=== PATIENT | male | born 1985 | race Caucasian/White ===

== ENCOUNTER 2023-09-20 06:55 | Emergency (ER) | payer OTHER, SELFPAY ==
[2023-09-20 06:57] VITALS: BP 155/111
--- NOTE | 2023-09-20 07:16 | ED.GENMED ---
History of Present Illness
General
Chief Complaint: Breathing Problem
Source: patient
Exam Limitations: none
Time Seen by Provider: 09/20/23 06:58
History of Present Illness
History of Present Illness:
38-year-old male presents via EMS with complaints of shortness of breath and a wound to the right upper extremity. He admits to having several stiffed drinks recently. He recently came back from [place]. He received a DuoNeb en route and states
that he feels much better. He tells me his last alcoholic beverage was a couple hours ago. He has a history of bipolar and is on lithium. He has a history of asthma as well. He complains of pain to the right upper arm of which he thinks is a
bite. Does not recall any trauma.
Past History
Past History
ED Past Medical History: HTN, Psychiatric and Other (Substance abuse)
ED Past Surgical History: None
Social History
Tobacco: Non-smoker
Alcohol: Occasional
Drug: Marijuana, Narcotics, IVDA and Other
Personal: Single
Living: with family
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
Family History
Family History: Other (Noncontributory)
Phy Exam
Physical Exam
Physical Exam:
General: Well-appearing male no acute respiratory distress
HEENT: Normocephalic pupils equal round react light extract motion intact
Heart: Slightly tachycardic but regular
Lungs: Clear no wheeze
Skin: Abrasion with underlying ecchymosis to the posterior aspect of the right upper arm overlying the tricep area. No obvious deformity
Musculoskeletal exam: Good range of motion right upper extremity
Neurologic: Appears intoxicated but answers questions. No facial asymmetry. No drift
Course
Vital Signs
Initial and Last Documented VS:
Initial Vital Signs
Temp Pulse Resp BP Pulse Ox
98.1 F 94 20 155/111 95
09/20/23 06:57 09/20/23 06:57 09/20/23 06:57 09/20/23 06:57 09/20/23 06:57
Last Documented Vital Signs
Temp Pulse Resp BP Pulse Ox
98.1 F 94 20 155/111 95
09/20/23 06:57 09/20/23 06:57 09/20/23 06:57 09/20/23 06:57 09/20/23 06:57
MDM/Problems Addressed
Differential Diagnosis Includes:
Patient presented with increased work of breathing with wheezing. He has a history of asthma. Question possible acute on chronic asthma flare. He was given a DuoNeb en route which she feels better. His lungs are clear at this time and is in no
respiratory distress. Patient Opticyl concerned about an area of discomfort in the right upper arm. To this provider looks like a bruise/hematoma. There is an abrasion overlying it. He is moving his arm well without deformity. Patient is
adamant that this is an insect bite. I do not suspect this is the case.
*Critical Care Note
Total Time (30-74mins, 75-104mins- exclusive of procedures): Not Applicable
Update Note
Update Note:
Patient remained without any respiratory distress. He has remained alert and conversive. He is ambulatory. He requests to go home. I see no reason why he cannot. He is currently working on a ride home and we will discharge him when we see a
ride.
ED Attending Note
-
Portions of this chart may have been created with voice recognition software.� Occasional wrong word or��sound alike� substitutions may have occurred due to the inherent limitations of voice recognition software.
Discharge Plan
Departure
Patient Disposition: Home (Routine Discharge)
Date of Disposition: 09/20/23
Time of Disposition: 07:50
Patient with high blood pressure during this ER visit?: No
Discharge Problem:
Asthma
Instructions: Asthma, Adult (DC)
Prescriptions:
No Action
lisinopril 10 MG tablet
10 mg PO Daily
ibuprofen 400 mg Tablet
400 mg PO PRN PRN (Reason: pain)
gabapentin 300 mg Capsule
300 mg PO HS
albuterol sulfate [Ventolin HFA] 90 mcg/actuation Hfa Aerosol Inhaler
2 puff INHALATION BID
acetaminophen [Tylenol] 325 mg Capsule
650 mg PO Q6H PRN (Reason: pain)
oxycodone 5 mg tablet
5 mg PO Q4HPRN PRN (Reason: breakthrough/severe pain) Qty: 10 0RF
Activity Restrictions/Additional Instructions:
You may apply ice to the upper arm. Use Tylenol or ibuprofen if needed for pain. Return if worse
Interventions
Interventions:
*Risk Screen - Suicide Last Done: 09/20/23 06:57
*General Assessment Last Done: 09/20/23 06:57
*Neglect/Abuse Screening Last Done: 09/20/23 06:57
ED- Cardiac Assessment Last Done: 09/20/23 07:26
ED- Pulmonary Assessment Last Done: 09/20/23 07:26
ED-Skin Assessment Last Done: 09/20/23 07:26
Discharge Date and Time
Print Language: KHMER
[2023-09-20 07:40] VITALS: BP 148/95
== END 2023-09-20 08:00 | disposition home or self-care (01) ==
LOC: EMR 06:55
PROVIDERS: EMERGENCY PHYSICIAN Emergency Medicine
DX: J45.909 Unspecified asthma, uncomplicated (principal); R06.02 Shortness of breath; M79.621 Pain in right upper arm; I10 Essential (primary) hypertension
CPT/HCPCS: 99283

== ENCOUNTER → 2023-11-15 07:13 | Outpatient (REF) | payer OTHER, SELFPAY | LOC: RCS 07:13 | PROVIDERS: ATTENDING PHYSICIAN Family Medicine | DX: R00.2 Palpitations (principal) | CPT/HCPCS: 93005 ==

== ENCOUNTER 2023-11-27 07:31 | Day surgery (SDC) | payer OTHER, SELFPAY ==
[2023-11-27 08:03] VITALS: BMI 37.6
[2023-11-27] MEDS: ELIQUIS 5 MG PO (09:41)
--- NOTE | 2023-11-27 10:04 | ITS.CL.CARDI ---
Farm Mortgage Agent - Cardioversion
Cardioversion
Procedure Report:
Procedure: DC-guided electrical cardioversion
Pre-operative diagnosis: Persistent atrial fibrillation
Post-operative diagnosis: Persistent atrial fibrillation status post DC cardioversion to sinus rhythm
Anesthesia: MAC
Attending Physician: Nitin Silva MD
Procedure Description: The patient was brought to the electrophysiology laboratory in the fasting state. Informed consent was obtained from the patient prior to the start of the procedure. Adherence to anticoagulation was confirmed. Electrodes were
placed on the patient and connected to an external defibrillator. Monitoring of blood pressure, ECG tracings, and pulse oximetry was initiated. The pads were applied to the patient in the anterior and posterior positions. The patient was sedated by
the anesthesiologist. A DC (reported separately) was performed prior to the cardioversion. No left atrial or left atrial appendage thrombus was seen. After the DC probe was removed, a 200 joule biphasic synchronized shock was delivered to the
patient under MAC anesthesia. Sinus rhythm was successfully restored. The patient recovered uneventfully from MAC anesthesia. There were no immediate post-procedure complications. The patient left the lab in good condition. The attending physician
was present throughout the entire procedure.
Impression: Successful DC-guided direct current cardioversion with amish of sinus rhythm after one 200 joule biphasic synchronized shock.
== END 2023-11-27 10:01 | disposition home or self-care (01) ==
LOC: CATH 07:31
PROVIDERS: ATTENDING PHYSICIAN Internal Medicine Cardiovascular Disease; FAMILY PHYSICIAN Family Medicine; OTHER PHYSICIAN Internal Medicine Interventional Cardiology
DX: I48.19 Other persistent atrial fibrillation (principal); I08.1 Rheumatic disorders of both mitral and tricuspid valves; I10 Essential (primary) hypertension; Z79.01 Long term (current) use of anticoagulants
CPT/HCPCS: 93312; 93320; 93325; 92960; 93005

== ENCOUNTER → 2023-12-16 15:59 | Outpatient (REF) | payer OTHER, SELFPAY | LOC: RCS 15:59 | PROVIDERS: ATTENDING PHYSICIAN Internal Medicine Interventional Cardiology; FAMILY PHYSICIAN Family Medicine | DX: I48.11 Longstanding persistent atrial fibrillation (principal); I10 Essential (primary) hypertension | CPT/HCPCS: 93306 ==

== ENCOUNTER 2024-01-30 07:15 | Day surgery (SDC) | payer OTHER, SELFPAY ==
--- NOTE | 2024-01-30 08:53 | ITS.CL.CARDI ---
Government Affairs Researcher - Cardioversion
Cardioversion
Procedure Report:
Date of Procedure: 01/30/24
Procedure: Cardioversion
Indication: Symptomatic atrial fibrillation
Performing Physician: Jasen East MD
Technique: The patient was brought to the holding area. Signed informed consent was obtained. A time out was called and performed. The patient was anesthetized by the anesthesia service. Anticoagulation status was reviewed and appropriate. R2 pads
were placed anteriorly and posteriorly. A 200 J, 360J and 360J synchronized biphasic shock failed to restore sinus rhythm without significant bradycardia. There were no complications.
Conclusion: Failed cardioversion with persistent atrial fibrillation.
Recommendation: Routine post cardioversion care. Continue senior care anticoagulation. Will arrange appointment with EP to discuss ablation.
== END 2024-01-30 09:40 | disposition home or self-care (01) ==
LOC: CATH 07:15
PROVIDERS: ATTENDING PHYSICIAN Internal Medicine Cardiovascular Disease; FAMILY PHYSICIAN Family Medicine; OTHER PHYSICIAN Internal Medicine Interventional Cardiology
DX: I48.19 Other persistent atrial fibrillation (principal); I08.1 Rheumatic disorders of both mitral and tricuspid valves; I10 Essential (primary) hypertension; J45.909 Unspecified asthma, uncomplicated; Z79.01 Long term (current) use of anticoagulants
CPT/HCPCS: 92960; 93005

== ENCOUNTER 2024-03-04 02:03 | Emergency (ER) | payer OTHER, SELFPAY ==
[2024-03-04 02:05] VITALS: BP 149/108
[2024-03-04 03:06] VITALS: BP 132/97
[2024-03-04 03:07] VITALS: BMI 39.3
[2024-03-04] MEDS: DUONEB 3 ML INH (03:19)
[2024-03-04] MEDS: DELTASONE 50 MG PO (03:20)
--- NOTE | 2024-03-04 03:20 | ED.GENMED ---
History of Present Illness
General
Chief Complaint: Breathing Problem
Source: patient
Exam Limitations: none
Time Seen by Provider: 03/04/24 03:15
Nursing documentation reviewed up to this point in time: agreed with
History of Present Illness
History of Present Illness:
38-year-old male presents emergency department with due to shortness of breath. Past several days he has not had his medications, and he is unable to sleep tonight due to shortness of breath.
Past History
Past History
ED Past Medical History: HTN, Psychiatric and Other (Substance abuse)
ED Past Surgical History: None
Social History
Tobacco: Non-smoker
Alcohol: Occasional
Drug: Marijuana, Narcotics, IVDA and Other
Personal: Single
Living: with family
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
Family History
Family History: Other (Noncontributory)
Review of Systems
Review of Systems
Allergies reviewed?: Yes
All Other Systems: Not applicable
Constitutional: Reports no symptoms
Respiratory: Reports cough and trouble breathing
Cardiac: Reports no symptoms
ABD/GI: Reports no symptoms
: Reports no symptoms
Musculoskeletal: Reports no symptoms
Skin: Reports no symptoms
Neurological: Reports no symptoms
Endocrine: Reports no symptoms
Hematologic/Lymphatic: Reports no symptoms
Psychiatric: Reports no symptoms
Phy Exam
Physical Exam
Physical Exam:
Physical Exam
General: Appears short of breath
Neck: supple. no meningeal signs. normal posterior pharynx
Heart: s1/s2 regular rate and rhythm, no murmur. equal radial
pulses.
HEENT: Pupils equal round reactive to light, EOMI
Lungs: Moderate respiratory distress. Decreased breath sounds and wheezing bilaterally
Abdomen: normal bowel sounds. not tender. no CVAT
Neuro: alert and oriented. no focal neurological deficits cranial nerves II through XII intact
Skin: no rash
Psychiatric: well kept. interactive and cooperative
Extremities: no edema. no calf tenderness. negative homans. good distal pulses
Course
Orders/Labs/Results
Orders:
Orders
03/04/24 02:04
Electrocardiogram (*1) Urgent
Reason for Study: Shortness of Breath
EKG- Treatment ONCE
03/04/24 03:15
Ipratropium/Albuterol Sulfate [Duoneb] 3 ml INH R NOW STA
Prednisone [Deltasone] 50 mg PO NOW STA
03/04/24 04:43
Albuterol [ProAIR HFA INHALER] 2 puff INH R NOW STA
Vital Signs
Initial and Last Documented VS:
Initial Vital Signs
Temp Pulse Resp BP Pulse Ox
97.3 F 112 16 149/108 94
03/04/24 02:05 03/04/24 02:05 03/04/24 02:05 03/04/24 02:05 03/04/24 02:05
Last Documented Vital Signs
Temp Pulse Resp BP Pulse Ox
97.3 F 109 20 132/97 97
03/04/24 02:05 03/04/24 04:00 03/04/24 04:00 03/04/24 03:06 03/04/24 04:00
MDM/Problems Addressed
Differential Diagnosis Includes:
Pneumonia, asthma exacerbation
MDM/Problems Addressed:
38-year-old male with asthma exacerbation, no signs of pneumonia. Patient improved after DuoNeb treatment.
Chronic conditions affecting care: Arrhythmia and Asthma
Acute Exacerbation and/or Progression of Chronic Illness: Arrhythmia and Asthma
*Pulse Oximetry
Patient hypoxic: no
*EKG
Interpreted by ED Provider?: Yes
EKG Intrepretation Date: 03/04/24
EKG Intrepretation Time: 02:14
Interpretation: abnormal
Heart Rate: 110
Rate: tachycardiac
Rhythm: a-fib
[place]: normal axis
Interval: normal interval
QRS Pattern: normal QRS
Ischemia: no ischemia
*Hand Coper Interpretation
Rate: tachycardiac
Interpretation: abnormal
Heart Rate: 105
Rhythm: a-fib
*Critical Care Note
Total Time (30-74mins, 75-104mins- exclusive of procedures): 30
comment:
Critical care statement: A total of 30 minutes of critical care time was provided for this patient. This includes management of unstable vital signs, evaluation of the patient at bedside, reviewing the patient's pertinent medical records, discussion
with consultants, review of old EKGs and review of pertinent medical records. This time with separate from time utilized to perform the aforementioned documented procedures
Data Reviewed
Further Testing Considered But Not Given:
Chest x-ray and labs not indicated
Patient Management
Social determinants of health affecting care: Living situation and Strong social support
Escalation/DeEscalation of care consider admission/obs:
Admit not indicated
ED Attending Note
-
Portions of this chart may have been created with voice recognition software.� Occasional wrong word or��sound alike� substitutions may have occurred due to the inherent limitations of voice recognition software.
Discharge Plan
Departure
Patient Disposition: Home (Routine Discharge)
Date of Disposition: 03/04/24
Time of Disposition: 04:45
Patient with high blood pressure during this ER visit?: Yes
Condition: Good
Discharge Problem:
Asthma exacerbation
Instructions: Asthma, Adult (DC), BLOOD PRESSURE
Prescriptions:
New
prednisone 50 mg tablet
50 mg PO DAILY Qty: 5 0RF
albuterol sulfate 2.5 mg /3 mL (0.083 %) solution for nebulization
2.5 mg inhalation Q4H PRN (Reason: shortness of breath or wheezing) Qty: 180 0RF
No Action
albuterol sulfate [Ventolin HFA] 90 mcg/actuation Hfa Aerosol Inhaler
2 puff INHALATION Q8HPRN PRN (Reason: sob)
amlodipine-benazepril 2.5-10 mg Capsule
1 cap PO DAILY
amlodipine-benazepril 5-20 mg Capsule
1 cap PO HS
Opcon-A 0.027-0.315 % Drops
1 drp OPHTHALMIC (EYE) BIDPRN PRN (Reason: eyes)
metoprolol succinate 50 mg Tablet Extended Release 24 Hr
50 mg PO DAILY
diazepam 5 mg Tablet
5 mg PO BID PRN (Reason: anxiety)
omeprazole magnesium [Prilosec OTC] 20 mg Tablet,Delayed Release (Dr/Ec)
20 mg PO PRN PRN (Reason: gerd)
Eliquis 5 mg Tablet
5 mg PO BID
Referrals:
Laureano Heller DO [Family Provider] -
Interventions
Interventions:
*Risk Screen - Suicide Last Done: 03/04/24 02:05
*General Assessment Last Done: 03/04/24 02:05
*Neglect/Abuse Screening Last Done: 03/04/24 02:05
ED- Fall Risk Assessment Last Done: 03/04/24 03:08
*ED COVID-19 Vaccine History Last Done: 03/04/24 02:05
ED- Cardiac Assessment Last Done: 03/04/24 03:08
ED- Pulmonary Assessment Last Done: 03/04/24 03:08
Discharge Date and Time
Print Language: PORTUGUESE
[2024-03-04 04:18] VITALS: BP 144/102
[2024-03-04] MEDS: ProAIR HFA INHALER 2 PUFF INH (04:56)
== END 2024-03-04 05:12 | disposition home or self-care (01) ==
LOC: EMR 02:03
PROVIDERS: EMERGENCY PHYSICIAN Emergency Medicine; FAMILY PHYSICIAN Family Medicine
DX: J45.901 Unspecified asthma with (acute) exacerbation (principal); R00.0 Tachycardia, unspecified; I10 Essential (primary) hypertension; F90.9 Attention-deficit hyperactivity disorder, unspecified type; F31.9 Bipolar disorder, unspecified; F32.A Depression, unspecified; F19.11 Other psychoactive substance abuse, in remission; Z91.048 Other nonmedicinal substance allergy status
CPT/HCPCS: 99291; 94640 ×2; 93005

== ENCOUNTER 2024-03-23 19:09 | Inpatient (IN) | payer OTHER, SELFPAY ==
[2024-03-23] VITALS (17 sets, daily range): BP systolic 103–148; BP diastolic 62–113
[2024-03-23 13:56] LABS: % Basophils 0.4 % (0-2); % Eosinophils 0.2 % (0-6); % Immature Granulocytes 1.1 % (0-0.5); % Lymphocytes 10.8 % (20.5-51.1); % Monocytes 13.2 % (1.7-9.3); % Neutrophils 74.3 % (42.2-75.2); Absolute Immature Granulocytes 0.1 10^3/uL (0-0.05); Absolute Monocytes 1.2 10^3/uL (0.1-0.6); Absolute Neutrophils 6.8 10^3/uL (1.4-6.5); Hematocrit 25.8 % (39.0-52.0); Hemoglobin 8.9 g/dL (13.0-18.0); Mean Corp Hgb Conc. 34.5 g/dL (33.0-37.0); Mean Corpuscular Hgb 30.5 pg (27.0-31.0); Mean Corpuscular Volume 88.4 fL (80.0-94.0); Mean Platelet Volume 10.7 fL (7.4-10.4); Nucleated Red Blood Cells % 0 % (-); Platelet Count 115 10^3/uL (130-400); Red Blood Cell Count 2.92 10^6/uL (4.70-6.10); Red Cell Dist. Width 14.3 % (11.5-14.5); White Blood Cell Count 9.2 10^3/uL (4.8-10.8)
[2024-03-23 14:09] LABS: INR 1.42; PT 17.6 Sec (11.4-14.6)
[2024-03-23 14:10] LABS: APTT 30.1 Sec (23.4-35.0)
[2024-03-23 14:11] LABS: ALT (SGPT) 71 U/L (0-50); AST (SGOT) 112 U/L (17-59); Albumin 3.8 g/dl (3.5-5.0); Alkaline Phosphatase 53 U/L (38-126); Blood Urea Nitrogen 33 mg/dl (9-20); Carbon Dioxide 23 mmol/L (22-30); Chloride 87 mmol/L (98-107); Glucose 111 mg/dl (70-99); Potassium 4.1 mmol/L (3.5-5.1); Sodium 123 mmol/L (135-145); Total Bilirubin 1.5 mg/dl (0.2-1.3); Total Protein 6.1 g/dl (6.3-8.2); eGFR > 60.00
[2024-03-23 14:22] LABS: Troponin I 0.022 ng/ml
--- NOTE | 2024-03-23 15:57 | ED.GENMED ---
History of Present Illness
General
Chief Complaint: Vomiting Blood
Time Seen by Provider: 03/23/24 15:21
History of Present Illness
History of Present Illness:
38-year-old male with history of A-fib on Eliquis presents to the emergency department for evaluation of intermittent nosebleeds for the past 3 days. He states he has been vomiting blood and has had tarry stools for the past 2 days as well. He
self discontinued his Eliquis 2 days ago however bleeding has not improved. He reports general fatigue as well as increased shortness of breath off his baseline. Admits to a 30 pound weight gain in the past 3 months. Has been compliant with his
other cardiac meds.
Past History
Past History
ED Past Medical History: HTN, Psychiatric and Other (Substance abuse)
ED Past Surgical History: None
Social History
Tobacco: Non-smoker
Alcohol: Occasional
Drug: Marijuana, Narcotics, IVDA and Other
Personal: Single
Living: with family
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
Family History
Family History: Other (Noncontributory)
Review of Systems
Review of Systems
Allergies reviewed?: Yes
All Other Systems: ROS reviewed and negative except as documented in HPI and ROS
Phy Exam
Physical Exam
Physical Exam:
GEN: Well appearing, NAD, WDWN
HEENT: Oral mucosa moist, no scleral icterus. Mild active venous bleeding from the right anterior nare, evidence of prior bleeding to the left anterior nare with no evidence of active bleed. Mild trickling blood in the oropharynx.
Cardiac: Irregular rhythm, controlled rate
Lung: No respiratory distress, no tachypnea, mild wheezes heard throughout all lung jason
MSK: No gross deformity or injuries
Skin: Good color, no pallor or jaundice, no rashes, 3+ pitting edema bilateral lower extremities
Neuro: AO x3, moves all extremities freely
Psych: Calm, cooperative
Course
Orders/Labs/Results
Orders:
Orders
03/23/24 13:26
Electrocardiogram (*1) Urgent
Reason for Study: Shortness of Breath
EKG- Treatment ONCE
03/23/24 13:44
Type And Crossmatch [Type+Screen] Urgent
Complete Blood Count/With Diff Urgent
Comprehensive Metabolic Panel Urgent
PTT Urgent
Prothrombin Time Urgent
Serum Osmolality Urgent
Troponin I Urgent
03/23/24 15:44
Furosemide [Lasix] 40 mg IV ONCE ONE
Ipratropium/Albuterol Sulfate [Duoneb] 3 ml INH R NOW STA
CR Chest - 2 Views Urgent
Comment:
Reason For Exam: SOB
03/23/24 15:55
Add On- LAB Urgent
Tests Added?: serum osmolality
03/23/24 16:21
ABO2 Routine
BBK Wristband Number:
Associate notified that ABO2 has been ordered: [id number]
Date: 03/23/24
Time: 14:11
Copper Miner Blasting ID: [id number]
03/23/24 16:24
Tranexamic Acid 1,000 mg INH NOW STA
Tranexamic Acid 1,000 mg INH R NOW STA
03/23/24 16:33
Pantoprazole [Protonix IV] 40 mg IV NOW STA
03/23/24 16:58
Osmolality, Random Urine Urgent
Date Specimen was Collected: 03/23/24
Time Specimen was Collected: 16:49
Urinalysis Reflex To Culture Urgent
Date Specimen was Collected: 03/23/24
Time Specimen was Collected: 16:49
Urine Sodium Urgent
Date Specimen was Collected: 03/23/24
Time Specimen was Collected: 16:49
03/23/24 18:14
Occult Blood Urgent
MYRTLE Source: Feces/Stool
Quantity: 1
Specimen Description:
03/23/24 18:18
0.9% Sodium Chloride [Nss (Preservative Free)] 0.5 ml IV NOW STA
Lorazepam [Ativan] 1 mg IV NOW STA
03/23/24 18:28
Admit/Transfer Patient As Directed
Co-Sign Provider:
Level of Care: Inpatient admission
Assign to:: IMU- Intermediate Care
Physician / Group: Paulo Moody
Diagnosis: GI bleed, epistaxis
Reason for Hospitalization: GI bleed, epistaxis
Expected length of stay greater than two midnights?: Yes
ELOS- Estimated Length of Stay in days: 3
I certify the patient meets the requirements for IP care: Yes
PRN Pain Medication Management As Directed
May give lesser potent ordered pain med per pt: Yes
preference::
Protocol:: Medication orders for pain may be administered in a
manner that supports deferring to patient preference
when the pt is:
- Requesting an ordered lesser potent pain medication.
Least to most potent pain medications are defined
as: acetaminophen < NSAID < tramadol < opioids
(morphine, oxycodone, hydromorphone).
- Requesting a lesser dose of the same medication IF
ORDERED.
- Requesting a less intrusive route of administration
if both routes are prescribed by the provider (PO <
IV).
03/23/24 18:30
Code Status As Directed
Resuscitation Status: Do not resuscitate
Reached after discussion with pt or family/Healthcare POA: Yes
Decision communicated with: patient
DNR Bracelet Application ONCE
03/23/24 18:39
Blood Bank Products [* Blood Bank Products] Stat
Blood Bank Products: *Packed RBC Leuko(PRBC's)
Quantity: 1
Transfuse Today: Yes
Reason: Bleeding
0.9% Sodium Chloride 1000 ml [Nss] 1,000 ml IV BOLUS
03/23/24 18:41
PRN Pain Medication Management As Directed
May give lesser potent ordered pain med per pt: Yes
preference::
Protocol:: Medication orders for pain may be administered in a
manner that supports deferring to patient preference
when the pt is:
- Requesting an ordered lesser potent pain medication.
Least to most potent pain medications are defined
as: acetaminophen < NSAID < tramadol < opioids
(morphine, oxycodone, hydromorphone).
- Requesting a lesser dose of the same medication IF
ORDERED.
- Requesting a less intrusive route of administration
if both routes are prescribed by the provider (PO <
IV).
03/23/24 19:07
H&H Q6H
03/24/24 00:45
H&H Q6H
03/24/24 06:45
H&H Q6H
03/24/24 12:45
H&H Q6H
03/26/24 11:00
DC Protocol for Telemetry ONCE
Abnormal Lab Results
03/23/24 03/23/24
13:44 19:07
RBC 2.92 L 10^6/uL
(4.70-6.10)
Hgb 8.9 L g/dL 8.3 L g/dL
(13.0-18.0) (13.0-18.0)
Hct 25.8 L % 23.6 L %
(39.0-52.0) (39.0-52.0)
Plt Count 115 L 10^3/uL
(130-400)
MPV 10.7 H fL
(7.4-10.4)
Abs Immat Gran (auto) 0.1 H 10^3/uL
(0-0.05)
Absolute Neuts (auto) 6.8 H 10^3/uL
(1.4-6.5)
Absolute Lymphs (auto) 1.0 L 10^3/uL
(1.2-3.4)
Absolute Monos (auto) 1.2 H 10^3/uL
(0.1-0.6)
Immature Gran % 1.1 H %
(0-0.5)
Lymphocytes % 10.8 L %
(20.5-51.1)
Monocytes % 13.2 H %
(1.7-9.3)
PT 17.6 H Sec
(11.4-14.6)
Sodium 123 L mmol/L
(135-145)
Chloride 87 L mmol/L
(98-107)
BUN 33 H mg/dl
(9-20)
Glucose 111 H mg/dl
(70-99)
Serum Osmolality 302 H mOsm/kg
(275-300)
Calcium 8.0 L mg/dl
(8.4-10.2)
Total Bilirubin 1.5 H mg/dl
(0.2-1.3)
AST 112 H U/L
(17-59)
ALT 71 H U/L
(0-50)
Total Protein 6.1 L g/dl
(6.3-8.2)
Crossmatch IS Only See Detail
03/23/24 19:07
03/23/24 13:44
Vital Signs
Initial and Last Documented VS:
Initial Vital Signs
Temp Pulse Resp BP Pulse Ox
97.1 F 97 20 129/83 98
03/23/24 13:20 03/23/24 13:20 03/23/24 13:20 03/23/24 13:20 03/23/24 13:20
Last Documented Vital Signs
Temp Pulse Resp BP Pulse Ox
97.1 F 107 18 127/62 98
03/23/24 13:20 03/23/24 19:02 03/23/24 19:02 03/23/24 19:02 03/23/24 17:30
Procedures
Nosebleed
Drug treatment: Epinephrine and Tranexamic Acid
Treatment: Silver nitrate cautery and Merocel packing
Post treatment bleeding: still some oozing
Additional information:
R nare packed with 8cm merocel infused w/ 5mL TXA. L nare cauterized w/ silver nitrate
MDM/Problems Addressed
MDM/Problems Addressed:
I suspect the patient has had a persistent epistaxis causing his GI bleed symptoms with hemoptysis, hematemesis,. However, discussed possibility for GI bleed particularly given that he is having some on Eliquis. Epistaxis treated with right-sided
nasal packing left-sided cautery. He aware for hospitalization purposes. Patient is also CHF evidenced by significant overload and increased work of breathing. May need GI consultation if hemoglobin continues to downtrend despite management of
nosebleed
*Critical Care Note
Total Time (30-74mins, 75-104mins- exclusive of procedures): Not Applicable
ED Attending Note
-
Portions of this chart may have been created with voice recognition software.� Occasional wrong word or��sound alike� substitutions may have occurred due to the inherent limitations of voice recognition software.
Discharge Plan
Departure
Patient Disposition: Admit
Date of Disposition: 03/23/24
Time of Disposition: 16:40
Admit to: Med/Surg
Presentation/result/management discussed w/ accepting MD/DO: Hospitalist
Discharge Problem:
Acute HFrEF (heart failure with reduced ejection fraction), ABLA (acute blood loss anemia), Epistaxis, Melena
Interventions
Interventions:
*Risk Screen - Suicide Last Done: 03/23/24 16:14
*General Assessment Last Done: 03/23/24 16:14
*Neglect/Abuse Screening Last Done: 03/23/24 16:14
ED- Fall Risk Assessment Last Done: 03/23/24 16:15
*ED COVID-19 Vaccine History Last Done: 03/23/24 16:14
ED- Pulmonary Assessment Last Done: 03/23/24 16:15
ED- Cardiac Assessment Last Done: 03/23/24 16:15
TL-Qwfszs-Nssjedfzgm Assessment Last Done: 03/23/24 16:15
[2024-03-23] MEDS: LASIX 40 MG IV (16:18)
[2024-03-23] MEDS: DUONEB 3 ML INH (16:18)
--- NOTE | 2024-03-23 16:31 | EDRN ---
Provided TXA to PA who is at bedside.
--- NOTE | 2024-03-23 16:58 | HPS.HSE ---
Family Physician
-
Family Physician: Laureano Heller
Chief Complaint
-
nose bleed
History of Present Illness
Patient is a 38-year-old male with past medical history significant for a-fib on Eliquis, hypertension, HFrEF, anxiety and bipolar disorder who presented to [place] [facility] for evaluation of upper GI bleed. Patient reports projectile vomiting of
bright red blood and dark tarry stools for 1 week. Reports he stopped Eliquis on Friday with last dose being Friday morning. Today he reports he started with bloody nose and was unable to get it to stop so he came for evaluation. Patient denies any
fever, chills, shortness of breath, chest pain, palpitations, nausea, constipation, diarrhea or urinary symptoms. Patient reports drink 2 beers and a glass of wine every other night.
Medical History
Past Medical History
Past Medical History: Reports Other
Additional Past Medical History:
a-fib on Eliquis
hypertension
HFrEF
anxiety
bipolar disorder
Past Surgical History: Reports Other
Additional Past Surgical History:
tooth extraction
Robotic asst lap LACY umbilical/ventral hernia repair w mesh (04/18/2022)
Social History
Tobacco: Non-smoker
Alcohol: Other (every other day, approximately 2 beers and 1 glass of wine)
Drug: Marijuana (occasionally use of edibles )
Living: With Family
Employment: Not Employed
Family History
Family History: Not pertinent
Allergies / Home Medications
Allergies reflects when Allergies were last updated in [facility].
Home Medications with original date entered in [facility] [facility]
Allergy/Medication List:
Allergies
Allergy/AdvReac Type Severity Reaction Status Date / Time
pollen extracts Allergy seasonal Verified 03/23/24 13:23
allergy
Home Medications
albuterol sulfate 90 mcg/actuation aerosol inhaler (Ventolin HFA) 2 puff inhalation Q8HPRN PRN sob 04/16/22
apixaban 5 mg tablet (Eliquis) 5 mg PO BID 11/27/23
diazepam 5 mg tablet 5 mg PO BID PRN anxiety 11/27/23
naphazoline-pheniramine 0.027 %-0.315 % eye drops 1 drp ophthalmic (eye) BIDPRN PRN eyes 11/27/23
omeprazole magnesium 20 mg tablet,delayed release (Prilosec OTC) 20 mg PO PRN PRN gerd 11/27/23
albuterol sulfate 2.5 mg/3 mL (0.083 %) solution for nebulization 2.5 mg (3 mL) inhalation Q4H PRN shortness of breath or wheezing #180 mL 03/04/24
prednisone 50 mg tablet 50 mg PO DAILY #5 tabs 03/04/24
benazepril 40 mg tablet 40 mg PO DAILY 03/23/24
furosemide 20 mg tablet (Lasix) 20 mg PO DAILY 03/23/24
metoprolol succinate 100 mg tablet,extended release 24 hr 100 mg PO BID 03/23/24
Review of Systems
-
History Source: Patient
Constitutional: Reports No Symptoms
EENT: Reports No Symptoms
Respiratory: Reports Cough (hemoptysis ) and Other (epistaxis )
Cardiac: Reports No Symptoms
Abdomen/GI: Reports Black Stools
: Reports No Symptoms
Musculoskeletal: Reports No Symptoms
Skin: Reports No Symptoms
Neurological: Reports No Symptoms
Endocrine: Reports No Symptoms
Hematologic/Lymphatic: Reports No Symptoms
Psych: Reports No Symptoms
Physical Exam
Vital Signs
Vital Signs
Temp Pulse Resp BP Pulse Ox
97.1 F 119 20 129/83 98
03/23/24 13:20 03/23/24 16:15 03/23/24 16:15 03/23/24 13:20 03/23/24 13:20
Physical Exam
General: Well Developed, Well Nourished, Comfortable and Conversant
HEENT: NormoCephalic, Moist mucous membranes, Atraumatic, PERRLA, [place] Conjunctivae and Other (epistaxis, and hemoptysis )
Respiratory: Clear and Wheezes
Cardiac: S1/S2 and Tachycardia; No Murmur, Rub or Gallop
Breast: Deferred by me
GI: Soft, Non Tender and Normal Bowel Sounds; No Organomegaly
Rectal: Deferred by Provider
Genito-urinary: Deferred by me
Musculoskeletal: No Clubbing, No Cyanosis and No Edema
Skin: Warm and IV/Catheter Site; No Rash
Neuro: Awake, Alert, AO x 3 and Nonfocal/grossly intact
Psych: Intact Judgment/Insight and Anxious
Laboratory Results
-
03/23/24 13:44
03/23/24 13:44
Laboratory Results
PT 17.6 Sec (11.4-14.6) H 03/23/24 13:44
INR 1.42 03/23/24 13:44
APTT 30.1 Sec (23.4-35.0) 03/23/24 13:44
Total Bilirubin 1.5 mg/dl (0.2-1.3) H 03/23/24 13:44
AST 112 U/L (17-59) H 03/23/24 13:44
ALT 71 U/L (0-50) H 03/23/24 13:44
Alkaline Phosphatase 53 U/L (38-126) 03/23/24 13:44
Troponin I 0.022 ng/ml 03/23/24 13:44
Data Reviewed
-
Lab Data: Labs Reviewed by me (Hgb 8.9, hct 25.8, plt 115, PT 17.6, Na 123, Tot Meet 1.5, AST 112, ALT 71)
Impression/Plan
-
IMPRESSION/PLAN:
#upper GI bleed, epistaxis
hgb 8.9, hct 25.8
- admit to IMU
- monitor h/h
- consult ENT
- consult GI
- blood consent obtained and scanned in chart
- 1 unit PRBCs ordered
#hyponatremia
Na 123
- bolus NSS
- monitor CMP
#transaminitis
Tot Bili 1.5, AST 112, ALT 71
- monitor CMP
#a-fib on Eliquis
- hold Eliquis
- continue metoprolol
#hypertension
- continue benazepril and metoprolol
#HFrEF
ECHO (12/16/2023): 1. Left ventricle: Moderate to severely reduced left ventricular systolic
function with a visually estimated ejection fraction of of 20-25% by visual
estimation. The ventricle is globally hypokinetic.
2. Right ventricle: Normal
3. Atria: Moderate left atrial dilation and mild right atrial dilation
4. Aortic valve: No aortic stenosis or aortic insufficiency
5. Tricuspid valve: Mild tricuspid regurgitation with estimated pulmonary
artery systolic pressures of 25-30 mmHg
7. No prior transthoracic echocardiograms available for comparison, however,
when compared to the transesophageal echocardiogram done on 11/27/2023 the LVEF
is now estimated at 20-25% rather than 30-35%. Atrial fibrillation is again
noted.
- continue metoprolol and furosemide
- daily weights
#anxiety
#bipolar disorder
Code Status: DNR
DVT Prophylaxis: SCDs
[2024-03-23 17:04] LABS: Osmolality Serum 302 mOsm/kg (275-300)
[2024-03-23 17:12] LABS: Osmolality Urine 414 mOsm/kg (300-900)
[2024-03-23 17:15] LABS: Urine Albumin Negative (Neg - Trace); Urine Bilirubin Negative (Negative); Urine Character Clear (Clear); Urine Color Yellow; Urine Glucose Negative (Negative); Urine Ketone Negative (Negative); Urine Leukocyte Negative (Negative); Urine Nitrite Negative (Negative); Urine Occult Blood Negative (Negative); Urine Urobilinogen Negative (Neg - 1+)
[2024-03-23 17:25] LABS: Urine Sodium 90 mmol/L (30-90)
[2024-03-23] MEDS: PROTONIX IV 40 MG IV (17:40)
[2024-03-23] MEDS: NSS (PRESERVATIVE FREE) 0.5 ML IV (18:38)
[2024-03-23] MEDS: TRANEXAMIC ACID 1000 MG INH (18:38)
[2024-03-23] MEDS: ATIVAN 1 MG IV (18:39)
[2024-03-23 19:24] LABS: Hematocrit 23.6 % (39.0-52.0); Hemoglobin 8.3 g/dL (13.0-18.0)
[2024-03-23] MEDS: NSS 1000 IV ×2 (20:28→23:03)
--- NOTE | 2024-03-23 20:55 | W.PN.UPDATE ---
Update Note
Progress Note Update
Attending addendum
Patient seen independently
38-year-old man with past medical history significant for:
a-fib on Eliquis,
hypertension,
HFrEF,
anxiety
bipolar disorde
presents with upper GI bleed. Patient reports projectile vomiting of bright red blood and dark tarry stools for 1 week. He stopped Eliquis on Friday with last dose being Friday morning (2 days ago). Today he started with bloody nose and was unable
to get it to stop. He denies any fever, chills, shortness of breath, chest pain, palpitations, nausea, constipation, diarrhea or urinary symptoms. Patient reports drink 2 beers and a glass of wine every other night. He had multiple episodes of
bloody vomit in ED. Nose was packed. CXR showed:
1. Mild to moderate enlargement of the cardiac silhouette. Diagnostic possibilities are (1) a cardiomyopathy or (2) a pericardial effusion.
2. Mild blunting of the right posterior and lateral costophrenic angles which could be secondary to a small right pleural effusion or mild pleural thickening.
3. Mild opacity in the inferior right middle lobe. Diagnostic possibilities are (1) mild pneumonia or (2) mild subsegmental atelectasis/scarring.
Past Medical History
a-fib on Eliquis
hypertension
HFrEF
anxiety
bipolar disorder
Past Surgical History: Reports Other
Additional Past Surgical History:
tooth extraction
Robotic asst lap LACY umbilical/ventral hernia repair w mesh (04/18/2022)
Physical Exam
General: Well Developed, Well Nourished, Comfortable and Conversant
HEENT: NormoCephalic, Moist mucous membranes, Atraumatic, PERRLA, [place] Conjunctivae and Other (epistaxis, and hemoptysis )
Respiratory: Clear and Wheezes
Cardiac: S1/S2 and Tachycardia; No Murmur, Rub or Gallop
GI: Soft, Non Tender and Normal Bowel Sounds; No Organomegaly
Psych: Anxious
IMPRESSION/PLAN:
1. Possible upper GI bleed, and also epistaxis
First hgb 8.9, hct 25.8, second one 8.3/23.6
H/H Q6
GI consulted
ENT consulted
Hold eliquis
Of note, 1 unit of blood was given since he was still actively bleeding
More blood may be needed if he continues to bleed.
2. hyponatremia - 123, and symptomatic, hypovolemic
Bolus NSS
NS at 200 thereafter
3. transaminitis - may be from fatty liver
Follow trend
Please see HEALTH CARE ATTORNEY note for full details on
a-fib on Eliquis
hypertension
HFrEF
anxiety
bipolar disorder
Code Status: DNR
DVT Prophylaxis: SCDs
[2024-03-23] MEDS: FLUSH (NSS) 1 FLUSH IV (21:18)
[2024-03-23] MEDS: TOPROL XL 100 MG PO (23:15)
[2024-03-23] MEDS: VALIUM INJECTION 5 MG IV (23:31)
[2024-03-23] MEDS: VENTOLIN NEBULES 2.5 MG INH (23:53)
[2024-03-24] VITALS (65 sets, daily range): BP systolic 74–211; BP diastolic 51–198; BMI 40.0
[2024-03-24] MEDS: VALIUM INJECTION 5 MG IV (00:22)
[2024-03-24] MEDS: PRECEDEX 100 IV ×2 (00:29→02:42)
[2024-03-24 00:44] LABS: Hematocrit 24.8 % (39.0-52.0); Hemoglobin 8.5 g/dL (13.0-18.0)
--- NOTE | 2024-03-24 02:30 | PTCARENOTE ---
pt impulsive and jumped out of bed, bed alarm alarmed. ripped all leads off, rt arm IV out, and walked to sink begging for a sip of water. I told him he is NPO and must get back into bed. pt put back to bed and placed precedex gtt back on pt. prn
ativan given as well. med sitter now in place.
[2024-03-24] MEDS: ATIVAN 2 MG IV ×2 (02:38→06:53)
--- NOTE | 2024-03-24 03:12 | PTCARENOTE ---
pt tried to get up and bed alarm went off. pt very agitated. I walked in room and pt trying to get up. pt then stated, ' i can`t do this, I am going to have a heart attack.' pt then appeared to have seized and went unresponsive. 0250 PEA. code
called. pt vented.
--- NOTE | 2024-03-24 03:16 | W.PN.ANESINT ---
Anesthesia Intubation Note
- Intubation Note
Intubation Note:
Diagnosis: Cardiac Arrest
Blade: Glidescope
Tube Size: 8.0
Depth: 23cm@lip
Side Taped: right
Drugs Used: none- pt found unresponsive with CPR performed
Grade View: 2
EtCO2 Present: yes
Atraumatic: yes
Attempts: 1
Insertion Start and Stop Time: 257
SaO2 Pre: none registering
SaO2 Post: 98 with CPR
Glidescope Used: yes
Other Airway Adjustments: none
Pre-Oxygenated: yes
Portable Chest X-Ray: yes
RSI: yes
Suctioned: yes
Bilateral Breath Sounds Confirmed: yes
Vent Settings:
Settings per ___Attending Physician
[2024-03-24 03:31] LABS: % Basophils 0.5 % (0-2); % Eosinophils 0.5 % (0-6); % Immature Granulocytes 2.8 % (0-0.5); % Lymphocytes 25.5 % (20.5-51.1); % Monocytes 14.2 % (1.7-9.3); % Neutrophils 56.5 % (42.2-75.2); Absolute Basophils 0.1 10^3/uL (0-0.2); Absolute Eosinophils 0.1 10^3/uL (0-0.7); Absolute Immature Granulocytes 0.3 10^3/uL (0-0.05); Absolute Monocytes 1.7 10^3/uL (0.1-0.6); Absolute Neutrophils 6.7 10^3/uL (1.4-6.5); Hematocrit 25.2 % (39.0-52.0); Hemoglobin 8.7 g/dL (13.0-18.0); Mean Corp Hgb Conc. 34.5 g/dL (33.0-37.0); Mean Corpuscular Hgb 30.5 pg (27.0-31.0); Mean Corpuscular Volume 88.4 fL (80.0-94.0); Mean Platelet Volume 10.9 fL (7.4-10.4); Nucleated Red Blood Cells % 1.3 % (-); Platelet Count 110 10^3/uL (130-400); Red Blood Cell Count 2.85 10^6/uL (4.70-6.10); Red Cell Dist. Width 14.8 % (11.5-14.5); White Blood Cell Count 11.9 10^3/uL (4.8-10.8)
[2024-03-24 03:42] LABS: APTT 26.3 Sec (23.4-35.0); INR 1.46
[2024-03-24 03:48] LABS: B.E. -4.7 mmol/L; PCO2 48 mmHg (35-48); PO2 203 mmHg (83-108); pH 7.27 (7.35-7.45)
[2024-03-24 03:50] LABS: O2 Therapy 100%
[2024-03-24 03:51] LABS: ALT (SGPT) 61 U/L (0-50); AST (SGOT) 119 U/L (17-59); Albumin 3.7 g/dl (3.5-5.0); Alkaline Phosphatase 46 U/L (38-126); Blood Urea Nitrogen 30 mg/dl (9-20); Calcium 7.1 mg/dl (8.4-10.2); Carbon Dioxide 18 mmol/L (22-30); Chloride 90 mmol/L (98-107); Glucose 181 mg/dl (70-99); Magnesium 1.9 mg/dl (1.6-2.3); Potassium 3.8 mmol/L (3.5-5.1); Sodium 126 mmol/L (135-145); Total Bilirubin 1.7 mg/dl (0.2-1.3); Total Protein 5.8 g/dl (6.3-8.2); eGFR > 60.00
[2024-03-24 03:56] LABS: Lactic Acid 6.2 mmol/L (0.7-2.0); Troponin I 0.035 ng/ml
[2024-03-24] MEDS: KEPPRA 30 MG IV (04:03)
[2024-03-24] MEDS: NEO-SYNEPHRINE 250 IV (04:13)
[2024-03-24] MEDS: CALCIUM GLUCONATE 100 IV ×2 (04:20→04:46)
[2024-03-24] MEDS: LR 250 IV (04:21)
[2024-03-24] MEDS: KCL 160 MEQ IV (04:50)
[2024-03-24] MEDS: NSS 1000 IV ×2 (04:55→18:22)
[2024-03-24] MEDS: VENTOLIN NEBULES 2.5 MG INH (05:01)
[2024-03-24] MEDS: SUBLIMAZE 50 MCG IV ×8 (05:04→23:06)
--- NOTE | 2024-03-24 05:30 | W.PN.UPDATE ---
Update Note
Progress Note Update
0245 Called to bedside. �Per nursing patient was half way out of bed. Multiple nurses moved patient back into bed. �During repositioning, patient stated, �I cannot do this, I am going to have a heart attack.� �Nurses stated he had seizure like
activity�then became unresponsive. �On arrival patient was isabel and agonal breathing. �He was labeled a DNR. � Bedside nurse began bagging patient. ��Patient in viki arrest state, immediately call his mother and explained situation and that he was a
DNR. ��She stated, �He is not a DNR, he is only [age] years old. She wanted DNR reversed�. ��Immediately ended phone conversation and started ACLS (0253) ��Patient in PEA arrest, CPR started, 1 amp of epi given, regain pulse, the become bradycardic
and lost pulses. �CPR restarted; addition 2 amps of epi given and patient intubated. �ROSC regained at 0302. �Discussed cases with neurology, (Empiric Keppra coverage and EEG in AM) and hospitalist did not want to start TTM. �Head CT ordered when
patient is stable. Labs post arrest: hgb 8.7, Abg 7.27/48/ 203, NA 126, LA= 6.2, Trop 0.035, EKG showed AFIB. (Cardiology consulted Echo in AM)�
Patient has known drinking history and anxiety. �MSAS protocol started before arrest. (Received 1 of Ativan for MSAS at 0207). ��In addition, patient was transferred to ICU because of severe anxiety (refractory to valium 5mg*2 given @ 0005); started
on low dose Precedex. Also, patient has been having significant hemoptysis that could have contributed to lose of airway. �
--- NOTE | 2024-03-24 06:26 | PTCARENOTE ---
family at bedside. updated on plan for pt. DREAD Raya at bedside.
--- NOTE | 2024-03-24 06:53 | CON.GI ---
Addendum entered and electronically signed by Kanchan Barnes MD 03/24/24 14:41:
I saw and examined the patient.
The MODEL [employer]'s note was reviewed and I agree with the note.
-Epistaxis/ hemoptysis/hematemesis / black stools/ acute blood loss anemia -- upper GI bleeding vs epistaxis .
-s/p PEA arrest/seizure after admission -- CPR s/p intubation now
-ETOH abuse/prior hx Multi substance abuse
-afib with Eliquis-- prior to admission due for ablation. last dose 03/21
-HfrEF 20-25% per echo in December 2023
- elevated liver test
- lactic acidosis
plan
Patient remains intubated. NGT dark material. s/p nasal packing from ENT. No red blood. no Rectal bleeding as per nursing . discussed with mother at bedside . Considering patient was having severe epistaxis s/p nasal packing on admissions followed
by cardiac arrest s/p CPR + intubation we will hold off on EGD ( dark material from NGT can also possibly secondary to swallowed blood from epistaxis ).
will recommend monitor H/H
continue protonix drip
continue monitor LFT
will also get US abdomen
ENT consultation reviewed
Continue further care as per medical / critical care team
will follow
-
Addendum entered and electronically signed by DREAD Robert 03/24/24 09:14:
Pt was also on prednisone prior to admission
Original Note:
Consultation
-
Date/Time Consultation Requested: 03/23/24 4660
Date/Time Consultation Performed: 03/24/24 4945
Requesting Provider: DREAD Pedro
Performing Provider: DREAD Navarro, Kanchan Barnes MD
Reason for Consultation: hematemesis
Medical History
Chief Complaint / HPI
Chief Complaint: vomiting blood
History of Present Illness:
Pt is a 38yo with hx afib on Eliquis due for ablation, HTN, HFrEF 20-25 % per echo in 12/2023, asthma, bipolar, anxiety, substance abuse in past, ETOH abuse, GERD, with admission to for upper GI bleed and dark tarry stools for 1 week. He
reported in ER onset of epistaxis. On admission noted with hbg 8.9 with platelets 115, INR 1.42, Na 123, BUN 33, lactate 6.2, bili 1.5, AST 112, ALT 71, alk phos 53, albumin 3.8 and rise in troponin to 0.035 after admission. After admission
noted with climbing out of bed, seizure like activity with unresponsiveness with agonal breathing. Pt was initial noted as DNR but after review with family pt was full code with pt noted with PEA arrest, s/p CPR/intubation, epi with ROSC with noted
hemoptysis. Pt is for ENT and GI eval for bleeding source.
Currently pt sedated and intubated unable to complete review of systems. In review with family pt with hx substance abuse in past and current daily ETOH use. He was drinking Vodka daily then was holding as due for ablation and cut back to wine.
Family also admit to Motrin use for joint pain but unsure of amount. He has had recent increased shortness of breath prior to admission . From GI standpoint + n/v with projective vomiting prior to admission of red blood. + wt gain with recent
Lexapro use with some increased abdominal girth. Family was unsure of how long symptoms were going on as pt was declining to come to hospital. No issues with abdominal pain but noted black stool. No hx prior GI bleeding, EGD or colonoscopy in
past.
Past Medical History
Past Medical History: Arrhythmias (afib on eliquis ), Asthma, CHF, GERD, HTN, Valvular Disease (mild TR), Psychiatric (bipolar, anxiety) and Other (substance abuse in past, ETOH abuse )
Past Surgical History: Other (tooth extraction, robotic lap umbilical/ventral hernia repair)
Social History
Alcohol: Other (prior vodka quit several days ago and was drinking wine, per family hx substance abuse clean last 5 years per family knowledge, was taking Valium prior to admission)
Drug: Marijuana (per ER)
Living: With Family
Employment: Not Employed (last few weeks with cardiac issues )
Family History
Family History: Other (mother with GERD no other reported GI issues )
Allergies / Home Medications
Allergy/AdvReac Type Severity Reaction Status Date / Time
pollen extracts Allergy seasonal Verified 03/23/24 18:20
allergy/Nasal
congestion
�Medication �Instructions �Recorded
albuterol sulfate 90 mcg/actuation 2 puff inhalation Q8HPRN PRN sob 04/16/22
aerosol inhaler (Ventolin HFA)
apixaban 5 mg tablet (Eliquis) 5 mg PO BID 11/27/23
diazepam 5 mg tablet 5 mg PO BID PRN anxiety 11/27/23
naphazoline-pheniramine 0.027 1 drp ophthalmic (eye) BIDPRN PRN 11/27/23
%-0.315 % eye drops eyes
omeprazole magnesium 20 mg 20 mg PO PRN PRN gerd 11/27/23
tablet,delayed release (Prilosec
OTC)
albuterol sulfate 2.5 mg/3 mL 2.5 mg (3 mL) inhalation Q4H PRN 03/04/24
(0.083 %) solution for nebulization shortness of breath or wheezing
#180 mL
prednisone 50 mg tablet 50 mg PO DAILY #5 tabs 03/04/24
benazepril 40 mg tablet 40 mg PO DAILY 03/23/24
furosemide 20 mg tablet (Lasix) 20 mg PO DAILY 03/23/24
metoprolol succinate 100 mg 100 mg PO BID 03/23/24
tablet,extended release 24 hr
Review of Systems
-
Unable to obtain full review of systems at this time due to: Patient Intubation
History Source: Family
Constitutional: Reports Weight Gain
Respiratory: Reports Trouble Breathing
Cardiac: Reports Other (s/p PEA arrest after admission)
Abdomen/GI: Reports Nausea, Vomiting (hematemesis ) and Black Stools
: Reports No Symptoms
Musculoskeletal: Reports Joint Pain (with NSAID use )
Neurological: Reports Dizzy and Weakness
Hematologic/Lymphatic: Reports Bleeding
Vital Signs
Temp Pulse Resp BP Pulse Ox
98.6 F 78 20 130/84 97
03/23/24 23:18 03/24/24 05:35 03/24/24 05:35 03/24/24 05:35 03/24/24 05:35
Physical Exam
Exam
General: Other (intubated/sedated )
HEENT: Normocephalic, Anicteric and Other (right nare nasal packing bloody without leakage)
Respiratory: Clear
Cardiac: Regular Rhythm
GI: Soft, Non Tender, Non Distended and Other (NGT with small amount dark red blood)
Musculoskeletal: No Clubbing and No Cyanosis
Skin: Warm and Dry
Neuro: Sedated
Psych: Calm
Results
WBC 11.9 10^3/uL (4.8-10.8) H 03/24/24 03:19
WBC Cancelled 03/24/24 03:19
Hgb 8.7 g/dL (13.0-18.0) L 03/24/24 03:19
Hgb Cancelled 03/24/24 03:19
Hct 25.2 % (39.0-52.0) L 03/24/24 03:19
Hct Cancelled 03/24/24 03:19
MCV 88.4 fL (80.0-94.0) 03/24/24 03:19
MCV Cancelled 03/24/24 03:19
Plt Count 110 10^3/uL (130-400) L 03/24/24 03:19
Plt Count Cancelled 03/24/24 03:19
Absolute Neuts (auto) 6.7 10^3/uL (1.4-6.5) H 03/24/24 03:19
PT 18.0 Sec (11.4-14.6) H 03/24/24 03:19
PT Cancelled 03/24/24 03:19
INR 1.46 03/24/24 03:19
INR Cancelled 03/24/24 03:19
APTT 26.3 Sec (23.4-35.0) 03/24/24 03:19
Sodium 126 mmol/L (135-145) L 03/24/24 03:19
Sodium Cancelled 03/24/24 03:19
Potassium 3.8 mmol/L (3.5-5.1) 03/24/24 03:19
Potassium Cancelled 03/24/24 03:19
Chloride 90 mmol/L (98-107) L 03/24/24 03:19
Chloride Cancelled 03/24/24 03:19
Carbon Dioxide 18 mmol/L (22-30) L 03/24/24 03:19
Carbon Dioxide Cancelled 03/24/24 03:19
BUN 30 mg/dl (9-20) H 03/24/24 03:19
BUN Cancelled 03/24/24 03:19
Creatinine 0.8 mg/dL (0.7-1.3) 03/24/24 03:19
Creatinine Cancelled 03/24/24 03:19
Calcium 7.1 mg/dl (8.4-10.2) L 03/24/24 03:19
Calcium Cancelled 03/24/24 03:19
Total Bilirubin 1.7 mg/dl (0.2-1.3) H 03/24/24 03:19
AST 119 U/L (17-59) H 03/24/24 03:19
ALT 61 U/L (0-50) H 03/24/24 03:19
Alkaline Phosphatase 46 U/L (38-126) 03/24/24 03:19
Diagnostic Image Results:
03/23/24 CXR
There is no visualized pneumothorax
New mild right upper lobe airspace disease concerning for developing pneumonia.
Possible developing pneumonia in the right costophrenic angle versus atelectasis. Progressed. Mild.
Tiny right pleural effusion. Progressed.
Cardiomegaly. Stable.
Prior GI Procedures:
EGD: none
Colonoscopy: none
Assessment / Plan
-
Pt is a 38yo with hx afib on Eliquis due for ablation, HTN, HFrEF 20-25 % per echo in 12/2023, asthma, bipolar, anxiety, substance abuse in past, ETOH abuse, GERD, with admission to for upper GI bleed and dark tarry stools for 1 week. He
reported in ER onset of epistaxis. On admission noted with hbg 8.9 with platelets 115, INR 1.42, Na 123, BUN 33, lactate 6.2, bili 1.5, AST 112, ALT 71, alk phos 53, albumin 3.8 and rise in troponin to 0.035 after admission. After admission
noted with climbing out of bed, seizure like activity with unresponsiveness with agonal breathing. Pt was initial noted as DNR but after review with family pt was full code with pt noted with PEA arrest, s/p CPR/intubation, epi with ROSC with noted
hemoptysis. Pt is for ENT and GI eval for bleeding source.
-hemoptysis/black stools-- upper GI vs epistaxis as reported on admission
-anemia acute blood loss- secondary to acute blood loss
-s/p PEA arrest/seizure after admission -- period of hypotension with arrest
-s/p intubate
-shortness of breath prior to admission
-ETOH abuse/prior hx substance abuse
-anemia
-elevated lactate level
-thrombocytopenia
-mild coagulopathy
-severe hyponatremia on admission
-elevated LFT's
-afib with Eliquis-- prior to admission due for ablation
-HfrEF 20-25% per echo in December
-NSAID use
other medical problems:
-asthma
-bipolar/anxiety
-hx hernia repair
PLAN:
etiology of hemoptysis related to ENT source with bloody nasal packing on exam with recent reported epistaxis vs GI source(PUD with hx NSAID use, gastritis, portal HTN)vs other
per family bleeding may have been going on for several days
only small volume blood in canister this am
events overnight noted with seizure/PEA arrest/intubation
currently sedated
trend hbg-- transfuse as needed and monitor for further bleeding
s/p ENT eval
hold EGD for now but if signs of aggressive bleeding and no noted ENT source consider sooner
per ER last dose Eliquis was 03/21 cont to hold for now
PPI IV BID
for neuro and card eval for repeat echo/EEG
ETOH abstinence/monitor for withdrawal
NSAID avoidance
check US abdomen at bedside with LFT elevation and eval liver
anticipate LFT's may rise with shock liver and hypotension during PEA arrest
family updated
-
-
Thank you for consultation and allowing me to participate in the patient's care. Please call the [facility]ane lad[facility] person GI physician during the after hours with any questions or concerns.
--- NOTE | 2024-03-24 07:00 | PTCARENOTE ---
Bedside report. Received pt intubated. He is tachypneic, tachycardic, and hypertensive. Use of accessory muscles to breath. PERRLA 4. He is restrained and not following commands. His mother is at the bedside. Left inner Fa #20g and 18g protective
catheters flushed and patent. Left hand #22g protective catheter flushed. Right wrist #20g protective catheter also flushed. +peripheral pulses. Knee-hi SCD's intact. #8ETT secured 23cm right lip with bite block intact. Currently on AC
20/550/.50/+5. Breath sounds anteriorly CTA. Bloody secretions via ETT. Right NARE nasal packing bloody. Bloody oral secretions. Abdomen large, round, obese. NPO. OGT @ 65cm to LIWS, flushed as ordered. Maroon secretions drained after flushed. TSF
secured draining clear yellow urine. Order obtained by night nurse for Propofol. Initiated @ 30mcg/kg/min for severe agitation via left inner FA#18g protective catheter. Safe environment maintained. Supportive care provided to pt's mother.
[2024-03-24] MEDS: ATIVAN 1 MG IV ×2 (07:04→11:58)
[2024-03-24] MEDS: DIPRIVAN 100 IV ×5 (07:11→21:13)
[2024-03-24] MEDS: VERSED 2 MG IV (07:23)
[2024-03-24 07:35] LABS: Lipase 133 U/L (23-300)
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
--- NOTE | 2024-03-24 07:53 | CON.MD ---
Consultation - Medical
-
Chief complaint: Epistaxis, hematemesis
History of present illness: This patient is a 38-year-old gentleman with a history of medical problems including acute heart failure with reduced ejection fraction, epistaxis, acid reflux, asthma, the patient is chronically anticoagulated with
Eliquis 5 mg twice a day. He recently began to experience both bleeding from his nose as well as projectile vomiting of blood. He was seen in the emergency room last night and admitted after his nose was cauterized on the left side and packed with
packing soaked in TXA on the right side. He is hemoglobin is low at 8.7. He stopped his Eliquis several days ago on his own. Overnight he had some sort of event in which he lost consciousness and is currently in the ICU. His pack is in place.
He does not seem to be experiencing significant bleeding at this point.
Past medical history:
Allergies: No known drug allergies
Home medications: Albuterol sulfate 2.5 mg inhaled every 4 hours as needed shortness of breath, Ventolin HFA 2 puffs every 8 hours as needed shortness of breath, Eliquis 5 mg p.o. twice daily, benazepril 40 mg p.o. daily, diazepam 5 mg p.o. twice
daily as needed anxiety, Lasix 20 mg p.o. daily, metoprolol 100 mg p.o. twice daily, naphazoline�pheniramine 1 drop twice daily as needed, Prilosec 20 mg p.o. daily as needed, prednisone 50 mg p.o. daily
Medical problems: Melena, epistaxis, hematemesis, acute blood loss anemia, heart failure with reduced ejection fraction, obesity, severe anxiety, acid reflux, chronically anticoagulated,
Hospitalizations: The patient is currently hospitalized with acute blood loss and heart failure. He has a history of obesity, anxiety, chronic anticoagulation, asthma, hypertension
Family history: Asked and is noncontributory for this problem
Review of systems: The patient is currently intubated and unresponsive/sedated. The patient has a history of shortness of breath and anxiety. Positive for history of hematemesis and melena as well as epistaxis
Physical examination:
Head: Atraumatic and normocephalic
Eyes: Patient is currently sedated/unresponsive
Ears: Normal to exam
Nose: Merocel sponge in right nose without active bleeding. Left nose shows dried blood but no active bleeding.
Oral cavity/oropharynx: Endotracheal tube in place: No active bleeding noted
Neck: Supple
Cranial nerves: Could not be evaluated because of sedation/unresponsiveness
Voice: Could not be evaluated
Impression/plan: This patient is a 38-year-old gentleman with severe anxiety who is chronically anticoagulated with Eliquis. He began to experience both epistaxis as well as hematemesis and now has melena. He stopped his Eliquis on his own about 3
or 4 days ago. When he presented to the emergency room his nose was packed with a Merocel with TXA applied as well as cautery on the left side. No active bleeding is currently noted. We will keep the packing in place for now. Will observe. The
packing should stay at least a couple of days and if there is no sign of bleeding we can remove the packing possibly on Friday.
--- NOTE | 2024-03-24 08:00 | PTCARENOTE ---
CHG bath, Breath sound posteriorly diminished but CTA. Repositioned on his side.
--- NOTE | 2024-03-24 08:29 | CON.INTV ---
Consultation
Consultation Request
Date/Time Consultation Requested: 03/24/202432
Date/Time Consultation Performed: 03/24/2024827
Requesting Provider: DREAD Long
Performing Provider: Dr. Gonzalez
Reason for Consultation: UGIB
Medical History
-
Chief Complaint: Vomiting blood
History of Present Illness:
38-year-old male non-smoker with a past medical history of persistent A-fib on Eliquis, bipolar affective disorder, asthma, and hypertension who presented with vomiting blood 1 day prior to arrival with dark stools as well as a nosebleed. He has
been having fatigue, shortness of breath and confusion with chest pain. He is normally on Eliquis but he has been holding it for few days due to his bleeding. He does follow-up with cardiology with last visit on 02/17/[address] Phillips. He has
a history of nonischemic cardiomyopathy with prior EF of 20-25% with global hypokinesis from echo in December 2023. He was discussing getting an ablation for his A-fib. He has a history of cardioversion x 2 with failure to restore into sinus
rhythm. Also it has been difficult to choose an antiarrhythmic drug in the setting of his lithium drug use with risk of QT prolongation. In the ER he told the doctor he has been having a bloody nose which started on the day of ER arrival, and has
been vomiting bright red blood with dark tarry stools for 1 week. Last dose of Eliquis was on Friday (03/21/2024). In the ER he was afebrile to 97.1 �F, pulse rate 97, breathing at 20 breaths/minute, BP 129/83 and saturating 98% on room air.
Initial labs showed Hb 8.9, platelet count 115, sodium 123, chloride 87, BUN 33, serum osmolarity 302, and urinalysis negative for signs of UTI. Initial CXR showed suspected small right pleural effusion with possible pneumonia in the right middle
lobe. He was initially admitted to the IMU for a GI bleed with epistaxis. Overnight he was agitated and required Precedex drip so was transferred to the ICU, and developed a cardiac arrest while trying to get up out of bed. He was labeled DNR
however when the ICU PARTY PLAN SALES DIRECTOR call the family this was reversed, and CPR/ACLS was initiated. He was given an amp of epinephrine and pulse was regained and then he became bradycardic and lost pulse again. CPR resumed and given 2 A of epi and patient was
intubated. ROSC regained. Due to his prearrest seizure-like activity, neurology was called and empiric Keppra was given. TTM was not started given his acute upper GI bleed and epistaxis. He has continued to be managed in the ICU and trouble locater
services consulted for additional management/recommendations.
Patient was seen and evaluated today at bedside. Currently on propofol at 30mcg/kg/min, and he remains intubated on AC/CMV at 20/550/40%/5 with PIP: [id number], plateau pressure: [id number], VTe 360mL and breathing at 28 breaths/min. Heart rate 96, SpO2
93% and BP 128/116. NG tube on low intermittent wall suction and suctioning out maroon colored liquid. Mother, Lesly, at bedside, and all questions were answered. According to her he has a history of severe asthma with a flare a few weeks ago
needing prednisone. She is not sure who manages his asthma. He has a Ventolin inhaler at home.
PMHx: Asthma, hypertension, bipolar 1 disorder, A-fib
PSHx: Tooth extraction, robotic assisted umbilical/ventral hernia repair with mesh
Past Medical History
Past Medical History: Other (Above as per HPI)
Past Surgical History: Other (Above as per HPI)
Social History
Tobacco: Non-smoker
Alcohol: Daily
Drug: Marijuana
Family History
Family History: Diabetes (Mother) and Hypertension (Father)
Allergies / Home Medications
Allergies
Allergy/AdvReac Type Severity Reaction Status Date / Time
pollen extracts Allergy seasonal Verified 03/23/24 18:20
allergy/Nasal
congestion
Home Medications
�Medication �Instructions �Recorded �Confirmed �Last Taken �Type
albuterol sulfate 90 mcg/actuation 2 puff inhalation Q8HPRN PRN sob 04/16/22 03/23/24 11/27/23 06:30 History
aerosol inhaler (Ventolin HFA)
apixaban 5 mg tablet (Eliquis) 5 mg PO BID 11/27/23 03/23/24 03/21/24 08:00 History
diazepam 5 mg tablet 5 mg PO BID PRN anxiety 11/27/23 03/23/24 11/27/23 06:30 History
naphazoline-pheniramine 0.027 1 drp ophthalmic (eye) BIDPRN PRN 11/27/23 03/23/24 11/27/23 06:30 History
%-0.315 % eye drops eyes
omeprazole magnesium 20 mg 20 mg PO PRN PRN gerd 11/27/23 03/23/24 Unknown History
tablet,delayed release (Prilosec
OTC)
albuterol sulfate 2.5 mg/3 mL 2.5 mg (3 mL) inhalation Q4H PRN 03/04/24 03/23/24 Unknown Rx
(0.083 %) solution for nebulization shortness of breath or wheezing
#180 mL
prednisone 50 mg tablet 50 mg PO DAILY #5 tabs 03/04/24 03/23/24 Unknown Rx
benazepril 40 mg tablet 40 mg PO DAILY 03/23/24 03/23/24 03/23/24 History
furosemide 20 mg tablet (Lasix) 20 mg PO DAILY 03/23/24 03/23/24 03/23/24 History
metoprolol succinate 100 mg 100 mg PO BID 03/23/24 03/23/24 03/23/24 History
tablet,extended release 24 hr
Review of Systems
-
Unable to Obtain full review of systems at this time due to: Patient Intubation
Vitals / Labs / Diagnostic Testing
Vital Signs
Temp Pulse Resp BP Pulse Ox
97.3 F 74 20 107/68 95
03/24/24 08:00 03/24/24 09:05 03/24/24 09:05 03/24/24 09:05 03/24/24 09:05
Lab Data
03/24/24 03:19
Laboratory Results
03/23/24 03/24/24 03/24/24
13:44 03:19 03:19
PT 17.6 H 18.0 H Cancelled
INR 1.42 1.46
APTT 30.1
pH
pCO2
pO2
HCO3
O2 Delivery Level
03/24/24
03:19
PT
INR Cancelled
APTT 26.3
pH 7.27 L
pCO2 48
pO2 203 H
HCO3 22.0
O2 Delivery Level 100%
Diagnostic Testing:
Physical Exam
-
HEENT: Normocephalic, Anicteric and Other (ETT in place)
Cardiovascular: S1/S2, Rub (negative) and Peripheral Edema (negative)
Respiratory: Wheeze (negative), Rales (negative), Rhonchi (negative), Non-Labored Respirations, Other (Diminished breath sounds bilaterally with prolonged expiratory phase) and Other (Mechanical breath sounds heard bilaterally)
GI: Soft, Distended (Abdominal obesity), Non Tender and Normal Bowel Sounds
Neurology: Tremors (negative) and Other (Intact gag/cough reflex, intact corneal reflexes bilaterally, pupils 4 mm bilaterally and brisk)
Skin: Warm and Dry
General: Respiratory Distress (negative), Fever (negative) and Chills (negative)
Assessment
-
Assessment: 38-year-old male non-smoker with a past medical history of persistent A-fib on Eliquis, bipolar affective disorder, asthma, and hypertension who presented with vomiting blood 1 day prior to arrival with dark stools as well as a
nosebleed. He has been having fatigue, shortness of breath and confusion with chest pain. He is normally on Eliquis but he has been holding it for few days due to his bleeding. He does follow-up with cardiology with last visit on 02/17/[address] Phillips[address] He has a history of nonischemic cardiomyopathy with prior EF of 20-25% with global hypokinesis from echo in December 2023. He was discussing getting an ablation for his A-fib. He has a history of cardioversion x 2 with failure to
restore into sinus rhythm. Also it has been difficult to choose an antiarrhythmic drug in the setting of his lithium drug use with risk of QT prolongation. In the ER he told the doctor he has been having a bloody nose which started on the day of
ER arrival, and has been vomiting bright red blood with dark tarry stools for 1 week. Last dose of Eliquis was on Friday (03/21/2024). In the ER he was afebrile to 97.1 �F, pulse rate 97, breathing at 20 breaths/minute, BP 129/83 and saturating 98%
on room air. Initial labs showed Hb 8.9, platelet count 115, sodium 123, chloride 87, BUN 33, serum osmolarity 302, and urinalysis negative for signs of UTI. Initial CXR showed suspected small right pleural effusion with possible pneumonia in the
right middle lobe. He was initially admitted to the IMU for a GI bleed with epistaxis. Overnight he was agitated and required Precedex drip so was transferred to the ICU, and developed a cardiac arrest while trying to get up out of bed. He was
labeled DNR however when the ICU PARTY PLAN SALES DIRECTOR call the family this was reversed, and CPR/ACLS was initiated. He was given an amp of epinephrine and pulse was regained and then he became bradycardic and lost pulse again. CPR resumed and given 2 A of epi and
patient was intubated. ROSC regained. Due to his prearrest seizure-like activity, neurology was called and empiric Keppra was given. TTM was not started given his acute upper GI bleed and epistaxis. He has continued to be managed in the ICU and
trouble locater services consulted for additional management/recommendations.
Chronic conditions SENIOR STATISTICAL PROGRAMMER: Asthma, hypertension, bipolar 1 disorder, A-fib
Impression:
#Hemorrhagic shock
#In-hospital cardiac arrest with preceding seizure-like activity (withdrawal seizure vs myoclonic jerks)
#Acute blood loss anemia due to reported epistaxis and UGIB with hematemesis
#Acute thrombocytopenia
#History of alcohol use drinking vodka daily as well as wine
#Suspected alcohol withdrawal seizure
#History of anxiety
#Metabolic acidosis with increased anion gap + respiratory acidosis
#Lactic acidosis
#Hypochloremic, hyponatremia
#Hyperglycemia
#Transaminitis with hyperbilirubinemia
#Elevated troponin likely due to cardiac arrest
Plan:
- Initially patient admitted to the ICU and in the middle the night became agitated was tried to get out of bed, then had seizure-like activity, became unresponsive and then cardiac arrested s/p ROSC
- Unable to do hypothermic protocol due to upper GI bleed
- Ensure core temperature-sensing probe was in place and maintain for 48-72 hours to avoid fever
- Minimize sedation to help prognosticate, although continue AEDs as per neurology
- Neurology consulted; recommend EEG as well as CT head (if safe to transfer to floor)--> EEG done this morning showed very low amplitude with near cerebral signs, likely due to sedation given - CT head shows no acute intracranial pathology with
acute and chronic sinusitis
- Continue mechanical ventilation with daily SAT/SBT if clinically appropriate
- Titrate FiO2 + PEEP to keep SpO2 >94%
- Maintain plateau pressure <30
- Frequent oropharyngeal + deep ETT suctioning as needed
- Postcardiac arrest CXR showed new opacification in the right upper lobe concerning for aspiration --> start Unasyn and check respiratory Cx
- Given history of asthma with peak > plateau of >5, start scheduled DuoNebs + Flovent BID
- prn nebulized bronchodilators
- GI consulted; they definitely is concern for an upper GI bleed as he had reported vomiting blood with tarry stools for a week, and his BUN is elevated with normal creatinine
- Maintain large bore IV x2
- PPI 40mg IV BID
- Defer EGD to GI
- Abdominal ultrasound today shows hepatic fatty infiltration with no signs of cirrhosis
- Trend H/H and transfuse if needed to keep Hb>7g/dL; keep plt>50k
- Hold antiplatelet/anticoagulants
- Continue thiamine + folic acid
- Start phenobarbital to prevent any seizure activity from alcohol withdrawal while we wean down on propofol
- This was discussed with neurology and he agrees with this plan
- Continue nasal packing in R-nares
- ENT following
- Continue trending sNa
- Trend LFTs
- Trend sHCO3 level and trend pH and pCO2 - no need for bicarb drip at this time
- Continue with Lopressor 25mg q6hr with holding parameters
- Cardiology on board and recommendations appreciated
- Maintain MAP>65
- Replete electrolytes with K>4, Mg>2
- Maintain euglycemia with goal BG 140-180 with ISS q6hr
- DVT ppx: SCDs; has stopped is Eliquis SENIOR STATISTICAL PROGRAMMER due to nosebleeds, plus he was scheduled for an ablation given Hx of A-fib
Critical care statement: A total of 42 minutes of critical care time was provided for this patient today. This includes management of unstable vital signs, evaluation of the patient at bedside, reviewing the patient's pertinent medical records
including radiographs, microbiology, laboratory evaluations, and discussion with primary team, consultants, pharmacy, nutrition, physical therapy, case management, charge nurse, critical care nursing, and respiratory therapy.
Data:
CXR 03/24/2024:
New mild right upper lobe airspace disease concerning for developing pneumonia.
Possible developing pneumonia in the right costophrenic angle versus atelectasis. Progressed. Mild.
Tiny right pleural effusion. Progressed.
Cardiomegaly. Stable.
--- NOTE | 2024-03-24 08:37 | CON.NEURO4 ---
Addendum entered and electronically signed by Zachery Davison MD 03/24/24 10:38:
Studies reviewed.
I have personally examined the patient. I reviewed and agree with the ETL APPLICATION DEVELOPER's Note.
My addenda:
Unresponsive. Intubated. No acute distress.
Unable to determine speech.
Unable to perform requests. No tremor. .
Pupils questionably responsive to light presentation bilaterally. Unable to assess visual jason.
Negative doll's eyes.
Face appears symmetric.
Spontaneous extremity movements absent.
Neck: full ROM.
Chest: no dyspnea
Heart: no JVD
Ext: (-) Clubbing, (-) Cyanosis, (-) Edema
IMPRESSIONS/RECOMMENDATIONS:
Abrupt onset of change in mental status immediately preceding spontaneous cardiac arrest. Patient's event is most likely not epileptiform and instead reactive to relative cardiac dysfunction
Patient is at slightly higher risk for epileptiform event due to prior history of alcohol abuse
Would continue antiseizure medication for the next 24 hours, replace levetiracetam with brivaracetam due to the patient's prior history of psychiatric disease
Will review EEG
Avoid additional sedation if possible
Goal of normal natremia
Continue MSAS protocol for alcohol withdrawal
Will continue to follow.
Original Note:
Consultation - Neurology 4
-
CONSULTING PHYSICIAN: Dr. Zachery Davison
REFERRING PHYSICIAN: DREAD Long
DICTATED BY: DREAD Arias
DATE/TIME OF REQUEST: 03/24/2024
DATE/TIME OF CONSULTATION: 03/24/2024
Reason for Consultation: seizure activity
History of Present Illness:
This is a 38 year old male patient with a past medical history of hypertension, bipolar disorder, anxiety, obesity, cardiomyopathy and atrial fibrillation on Eliquis who presented to the ER with epistasis. He reported that he started with a
nosebleed in the morning 03/23/2024 and unable to get it to stop. He also admitted to a week of vomiting bright red blood as well as dark tarry stools. He had stopped his Eliquis on Friday03/21/2024. At the time of admission he denied any chest
pain, shortness of breath, weakness, numbness, or headache. In the middle of the night he became agitated and got OOB, nursing assisted him back to bed. He reported he felt like he was going to have a heart attack, had seizure activity, agonal
breathing and then went unresponsive. He was admitted as a DNR, however after staff spoke with mother she reversed DNR. CPR was started and was started and after about 7 minutes of CPR ROSC was regained. He was given a total of 12 mg of Ativan and
was loaded with 3000 mg of Keppra. He is now intubated and requiring pressors. No additional seizure activity has been noted. He continues on Diprivan for sedation. No know history of seizures. We do not have any neurologic imaging for review.
Per family he does have a history of ETOH abuse. NA 123.
Past Medical History: Persistent atrial fibrillation, hypertension, bipolar disorder, anxiety, obesity, cardiomyopathy
Surgical History: Hernia repair
Family History: Father hypertension, mother diabetes
Social History: Pt lives with family. Not currently working. He admitted to ETOH use every other day (2 beers, 1 glass of wine), mother reports much more ETOH use, Occasionally uses Marijuana edibles, sister reported IV drug use.
Allergies: see below
Home Medications: see below
Review of Symptoms:
unable to obtain d/t sedation
Vital Signs: see below
Physical Exam:
The patient is afebrile, heart sounds S1 and S2 are regular and chest is clear to auscultation bilaterally.
Neurologic Examination:
The patient is intubated and sedated. He is not able to follow commands and answer questions appropriately. Unable to speak. Pupils are 1 mm bilateral, round and sluggish. Unable to test visual jason are full. Unable to test sensation. No facial
asymmetry. Unable to test hearing or if Tongue palate or uvula are midline. Unable to assess sternocleidomastoid strengths or motor strengths. No involuntary movement noted. Deep tendon reflexes are 1+ bilateral upper and lower extremities and
Babinski is silent bilaterally. Unable to assess finger to nose or double simultaneous.
Lab Results: see below
Neuro Imaging: none to review
Impression:
BARBARA ISRAEL is a 38 year old M who has presented to the hospital with epistasis and GI bleed. Unfortunately suffered seizure-like activity with episode of PEA and is now intubated.
Differentials for the patient's presentation include seizure in setting of EtOH withdrawal versus metabolic disturbance
Recommendations:
-EEG pending report
-CT head pending
-switch Keppra to Briviact 100 mg IV BID d/t history of psychiatric disease
-maintain seizure precautions
-notify us with any new seizure activity
-continue to monitor Na was 123 now 126
-continue thiamine replacement
-DVT prophylaxis
-rest of medical management per primary care team
Discussed patient care with nursing and neurologist, Dr. Davison
Medication and Allergies
Home Medications
Home Medications
�Medication �Instructions �Recorded
albuterol sulfate 90 mcg/actuation 2 puff inhalation Q8HPRN PRN sob 04/16/22
aerosol inhaler (Ventolin HFA)
apixaban 5 mg tablet (Eliquis) 5 mg PO BID 11/27/23
diazepam 5 mg tablet 5 mg PO BID PRN anxiety 11/27/23
naphazoline-pheniramine 0.027 1 drp ophthalmic (eye) BIDPRN PRN 11/27/23
%-0.315 % eye drops eyes
omeprazole magnesium 20 mg 20 mg PO PRN PRN gerd 11/27/23
tablet,delayed release (Prilosec
OTC)
albuterol sulfate 2.5 mg/3 mL 2.5 mg (3 mL) inhalation Q4H PRN 03/04/24
(0.083 %) solution for nebulization shortness of breath or wheezing
#180 mL
prednisone 50 mg tablet 50 mg PO DAILY #5 tabs 03/04/24
benazepril 40 mg tablet 40 mg PO DAILY 03/23/24
furosemide 20 mg tablet (Lasix) 20 mg PO DAILY 03/23/24
metoprolol succinate 100 mg 100 mg PO BID 03/23/24
tablet,extended release 24 hr
Allergies
Allergies
Allergy/AdvReac Type Severity Reaction Status Date / Time
pollen extracts Allergy seasonal Verified 03/23/24 18:20
allergy/Nasal
congestion
Vital Signs / Labs
-
Vital Signs and Labs:
Temp Pulse Resp BP Pulse Ox
98.6 F 78 20 130/84 97
03/23/24 23:18 03/24/24 05:35 03/24/24 05:35 03/24/24 05:35 03/24/24 05:35
03/24/24 03:19
03/23/24 03/23/24 03/24/24
13:44 19:07 00:36
WBC
RBC 2.92 L
Hgb 8.9 L 8.3 L 8.5 L
Hct 25.8 L 23.6 L 24.8 L
RDW
Plt Count 115 L
MPV 10.7 H
Abs Immat Gran (auto) 0.1 H
Absolute Neuts (auto) 6.8 H
Absolute Lymphs (auto) 1.0 L
Absolute Monos (auto) 1.2 H
Immature Gran % 1.1 H
Lymphocytes % 10.8 L
Monocytes % 13.2 H
PT 17.6 H
pH
pO2
ABG O2 Sat (Measured)
Sodium 123 L
Chloride 87 L
Carbon Dioxide
BUN 33 H
Glucose 111 H
Serum Osmolality 302 H
Lactic Acid
Calcium 8.0 L
Total Bilirubin 1.5 H
AST 112 H
ALT 71 H
Troponin I
Total Protein 6.1 L
Crossmatch IS Only See Detail
03/24/24
03:19
WBC 11.9 H
RBC 2.85 L
Hgb 8.7 L
Hct 25.2 L
RDW 14.8 H
Plt Count 110 L
MPV 10.9 H
Abs Immat Gran (auto) 0.3 H
Absolute Neuts (auto) 6.7 H
Absolute Lymphs (auto)
Absolute Monos (auto) 1.7 H
Immature Gran % 2.8 H
Lymphocytes %
Monocytes % 14.2 H
PT 18.0 H
pH 7.27 L
pO2 203 H
ABG O2 Sat (Measured) 100.0 H
Sodium 126 L
Chloride 90 L
Carbon Dioxide 18 L
BUN 30 H
Glucose 181 H
Serum Osmolality
Lactic Acid 6.2 H*
Calcium 7.1 L
Total Bilirubin 1.7 H
AST 119 H
ALT 61 H
Troponin I 0.035 H*
Total Protein 5.8 L
Crossmatch IS Only
[2024-03-24] MEDS: THIAMINE INJECTION 200 MG IV ×2 (08:40→19:44)
[2024-03-24] MEDS: TOPROL XL PO (08:49)
[2024-03-24] MEDS: FOLVITE PO (08:50)
[2024-03-24] MEDS: PROTONIX IV 40 MG IV ×2 (08:54→19:44)
[2024-03-24] MEDS: NSS (PRESERVATIVE FREE) 10 ML IV ×2 (08:55→19:43)
[2024-03-24 09:44] LABS: Hematocrit 22.2 % (39.0-52.0); Hemoglobin 7.7 g/dL (13.0-18.0)
[2024-03-24 09:53] LABS: Triglycerides 167 mg/dl (10-149)
[2024-03-24 10:08] LABS: Troponin I 0.375 ng/ml
[2024-03-24] MEDS: UNASYN IV ×3 (10:21→22:24)
[2024-03-24 10:32] LABS: Lactic Acid 1.1 mmol/L (0.7-2.0)
--- NOTE | 2024-03-24 10:50 | PTCARENOTE ---
Increased UOP from Muniz catheter 1180ml's. Hosiery Mater and Dr. Davison notified via TT. He had gotten 50mcg Fentanyl IVP @ 0642, 2mg IVP lorazepam @ 0653, 2mg IVP Versed @ 0723. Propofol drip started @ 30mcg/kg/min shortly thereafter.
--- NOTE | 2024-03-24 11:00 | EEG.RPT ---
Electroencephalogram Report
Recording
Date of EE03/24/24
Type of EEG: Routine
Length of EEG recordin minutes
Done with Video Recording: Yes
Patient Status: Inpatient
Recording Conditions: Asleep
Hyperventilation Performed: No
Photic Stimulation Performed: Yes
Report
LESS THAN 1 HOUR REPORT
LESS THAN 1 HOUR EEG INTERPRETATION:
Severely abnormal EEG for age due to very low amplitude to the point of near cerebral silence.
CLINICAL CORRELATION:
This study was suggestive of diffuse cortical dysfunction without focal abnormality. No seizures were recorded.
Clinical correlation is advised.
METHODS:
A 21 channel digitized electroencephalogram (EEG) was performed in the ICU. The 10/20 international system of electrode placement was used with ECG and lateral/vertical eye movements recorded. Video was recorded. [employer] system quantitative
analysis was performed.
QUALITY OF STUDY:
Good
ELECTROENCEPHALOGRAPHER IMPRESSION(S):
Background
Low amplitude unorganized anterior-posterior voltage gradient of typically delta activity with rare theta activity
There were no significant asymmetries of background activity noted.
Sleep
Not recorded
Photic Stimulation
Failed to activate the record
ECG
Unremarkable
[2024-03-24 11:02] LABS: Amphetamines Negative (Negative); Barbiturates Negative (Negative); Benzodiazepines Positive (Negative); Buprenorphine Negative (Negative); Cocaine Negative (Negative); Marijuana Positive (Negative); Methadone Negative (Negative); Methamphetamines Negative (Negative); Opiates Negative (Negative); Phencyclidine Negative (Negative); Tricyclic Antidepressants Negative (Negative)
--- NOTE | 2024-03-24 11:07 | CHAP ---
Addendum entered by Keeley Luna 03/24/24 15:42:
Monsignor Hutchinson did provide Sacrament of the Sick for Sarthak today as requested.
Original Note:
Emotional and spiritual support provided for Mr. Voss and family at bedside. Prep Manager request relayed to Monsignor Hutchinson who anticipates arriving around noon today to provide Sacrament of the Sick. Prayer blanket given. Will follow.
[2024-03-24 11:40] LABS: Fentanyl, Urine Positive (Negative)
[2024-03-24] MEDS: NSS (PRESERVATIVE FREE) 0.5 ML IV (11:57)
--- NOTE | 2024-03-24 12:10 | PTCARENOTE ---
Dr. Davison notified we are in CT scan now. he had dumped another 1300ml's urine prior to transport to CT scan.
[2024-03-24] MEDS: LOPRESSOR 25 MG TUBE ×2 (12:46→17:58)
[2024-03-24 14:12] LABS: Procalcitonin 0.48 ng/ml (0.0-0.25)
--- NOTE | 2024-03-24 14:39 | VATNOTE ---
Per radiology report, PICC line in good position with tip in the SVC. PCN notified of same and instructed OK to use. Asked PCN to remove all ipsilateral IVs and change all IV tubing prior to connecting to PICC.
--- NOTE | 2024-03-24 14:49 | W.PN.HOSP.TC ---
Addendum entered and electronically signed by Makayla Davis MD 03/24/24 16:32:
I saw and evaluated the patient. I reviewed the resident�s note and agree with findings and plan as documented in the resident�s note.
A/P:
# Severe alcohol use disorder w/ possible withdrawal seizure
Currently intubated with sedation (see below)
MSAS protocol when extubated
# Cardiac Arrest s/p CPR
Intubated for airway protection
Vent and sedation per Tissue Specialist
CT head no acute intracranial abnormality
EEG not reliable with current sedation
# Elevated troponin, likely related to cardiac arrest
# lactic acidosis, resolved
trend trop til peak
Echo noted moderately reduced EF 30-35%. The ventricle is globally hypokinetic. Diastolic function indeterminate.
Card on board
# Aspiration PNA
procal 0.48
CXR noted new mild right upper lobe airspace disease.
CT Chest with moderate bibasilar consolidation
Started IV Unasyn.
# Upper GI Bleed with melena
Holding PROP SETTER Eliquis
s/p 1u pRBCs transfusion
Follow Hgb
Continue Protonix IV twice daily
GI on board
# Elevated LFT, likely due to cardiac arrest in setting of alcohol abuse/fatty liver
Abd US: hepatic fatty infiltration
CT AP largely unrevealing
# Concurrent Epistaxis
s/p TXA & cauterization by ENT
No signs of active bleeding on exam
# Hyponatremia likely due to alcohol abuse
sodium level 123 on admission, today 126
cont to follow
# HFrEF
Continue PROP SETTER lasix 20 PO via tube.
Lopressor 25q6 per cardiology.
# Asthma
# Likely underlying sleep apnea
Outpatient sleep study when extubated and clinically stable
# Bipolar Disorder
per mother, patient was on Lexapro but stopped on his own due to weight gain
Consider Psych CS when extubated and clinically more stable
Diet - NPO
DVT Ppx - SCDs
GI Ppx - Protonix 40 BID IV
Code Status - Full Code
Discussed with mother and sister at bedside in person
CC mx 45 min
Original Note:
Today's Communication/Plan
-
ICU team will wean sedation as tolerated. Started LDISS for sugar control. C/w IV abx per Tissue Specialist. Appreciate integration of care teams for this patient.
Assessment / Plan
Assessment / Plan
38 year old male
#Possible aspiration PNA - CXR showing new mild right upper lobe airspace disease concerning for developing pneumonia. Started on IV Unasyn for coverage.
#Vtach Cardiac Arrest w/ CPR - TTM not initiated. currently sedated, on propofol ggt & fentanyl ggt. Currently weaned off pressure supports. Patient to obtain head CT and EEG.
#Elevated troponins - will continue to trend until peak, likely secondary to cardiac arrest. CXR did not show any osseous abnormalities.
#Alcohol Use Disorder w/ possible withdrawal seizure
- MSAS protocol. Getting thiamine and Folic acid. Ativan per protocol, however patient currently sedated. Will be mindful of possible withdrawal as he is weaned off sedation.
#Upper GI Bleed w/ Epistaxis
#Melena
- patient's last dose Eliquis Friday morning; stopped himself due to bleeding. S/p 1u pRBCs. Hgb stable at 8.7 this am, will continue to monitor H&H. transfuse if hgb <7.
- s/p TXA & cauterization for epistaxis. No signs of active bleeding on exam, monitoring hgb as above.
- Will obtain abd ultrasound and start IV protonix per GI.
- ENT to see
#Hyponatremia - 123 on admission, s/p IVF NS, up to 126 this AM. Will c/w gentle hydration at 80cc/hr NS.
#Elevated Glucose - initiated LDISS for glucose management
#Transaminitis - Elevated AST/ALT on admission. history of alcohol use and obesity, possible chronic elevation from fatty liver vs. shock liver. Will continue to monitor. Abd/US ordered.
#HFrEF - Continuing lasix 20 PO via tube. Lopressor 25q6 per cardiology. Patient to obtain Echo.
#lactic acidemia (resolved) - was elevated immediately post cardiac arrest, has come back down to normal. Blood gas showed metabolic acidosis without respiratory compensation.
#Asthma - per mother at bedside patient has been using his inhaler more frequently for night time shortness of breath. 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 sleep apnea vs. worsening Asthma, however history uncertain. Will continue to observe.
patient currently intubated, will reassess when medically stable.
#Bipolar Disorder - patient was on Lexapro but stopped on his own due to weight gain (obtained from mother at bedside). Presently patient is sedated, can consider psych consult in the future depending on patient status.
Diet - NPO
DVT Ppx - SCDs
GI Ppx - Protonix 40 BID IV
Code Status - Full Code
Anticipated Discharge: > 48 hours
Subjective/Interval History
-
Seen this morning. patient was intubated and sedated following cardiac arrest w/ ROSC.
talked to mother who was at bedside in the early AM to confirm patient's history. She disclosed a significant alcohol use history which worsened acutely in the days leading up to his presentation to the ED.
Objective Data
-
Labs:
Laboratory Results
03/24/24 03/24/24 03/24/24
03:19 03:19 03:19
WBC 11.9 H Cancelled
Hgb 8.7 L Cancelled
Hct 25.2 L
Plt Count
PT
INR
APTT
HCO3
Sodium
Potassium
Chloride
Carbon Dioxide
BUN
Creatinine
Glucose
Calcium
Total Bilirubin
AST
ALT
Alkaline Phosphatase
03/24/24 03/24/24 03/24/24
03:19 03:19 03:19
WBC
Hgb
Hct Cancelled
Plt Count 110 L Cancelled
PT 18.0 H Cancelled
INR 1.46
APTT
HCO3
Sodium
Potassium
Chloride
Carbon Dioxide
BUN
Creatinine
Glucose
Calcium
Total Bilirubin
AST
ALT
Alkaline Phosphatase
03/24/24 03/24/24 03/24/24
03:19 03:19 03:19
WBC
Hgb
Hct
Plt Count
PT
INR Cancelled
APTT 26.3
HCO3 22.0
Sodium 126 L Cancelled
Potassium 3.8 Cancelled
Chloride 90 L
Carbon Dioxide
BUN
Creatinine
Glucose
Calcium
Total Bilirubin
AST
ALT
Alkaline Phosphatase
03/24/24 03/24/24 03/24/24
03:19 03:19 03:19
WBC
Hgb
Hct
Plt Count
PT
INR
APTT
HCO3
Sodium
Potassium
Chloride Cancelled
Carbon Dioxide 18 L Cancelled
BUN 30 H Cancelled
Creatinine 0.8
Glucose
Calcium
Total Bilirubin
AST
ALT
Alkaline Phosphatase
03/24/24 03/24/24 03/24/24
03:19 03:19 03:19
WBC
Hgb
Hct
Plt Count
PT
INR
APTT
HCO3
Sodium
Potassium
Chloride
Carbon Dioxide
BUN
Creatinine Cancelled
Glucose 181 H Cancelled
Calcium 7.1 L Cancelled
Total Bilirubin 1.7 H
AST 119 H
ALT 61 H
Alkaline Phosphatase 46
03/24/24
09:25
WBC
Hgb 7.7 L
Hct 22.2 L
Plt Count
PT
INR
APTT
HCO3
Sodium
Potassium
Chloride
Carbon Dioxide
BUN
Creatinine
Glucose
Calcium
Total Bilirubin
AST
ALT
Alkaline Phosphatase
Vital Signs:
Vital Signs
Temp Pulse Resp BP Pulse Ox
97.3 F 76 20 103/74 97
03/24/24 08:00 03/24/24 14:30 03/24/24 14:30 03/24/24 14:00 03/24/24 14:30
I&O
03/23/24 03/24/24 03/25/24
06:59 06:59 06:59
Intake Total 450 / 475 455 / 455
Output Total 3775 / 3775
Balance 450 / 125 -3320 / -3320
Review of Systems
-
Unable to obtain full review of systems at this time due to: Patient Intubation and Other (Sedated)
History Source: Family and Records
Physical Exam
-
General: Well Developed, Well Nourished and Intubated
HEENT: Normocephalic, Atraumatic, Moist Mucous Membranes and Other (packing in R nostril with dried blood around the nares and upper lip. )
Respiratory: Clear to Auscultation; Negative Wheezes, Rales or Rhonchi
Cardiac: S1/S2 and Irregular Rhythm; Negative Murmur or Rub
Breast: N/A
GI: Soft, Nontender, Normal Bowel Sounds, Distended and Other (OG tube)
Genito-urinary: Clear Urine and Muniz
Musculoskeletal: No Clubbing, No Cyanosis and No Edema
Neuro: Sedated
[2024-03-24] MEDS: SUBLIMAZE 100 IV (14:57)
--- NOTE | 2024-03-24 15:00 | PTCARENOTE ---
Right DL PICC ok to use. Fentanyl drip @50mcg/hr. Repositioned. OGT with brush green bilious secretions. Right nare nasal packing intact.
--- NOTE | 2024-03-24 15:29 | CM ---
Patient admitted from home. He lives with his mother. Cm met mother, Lesly and sister Ratna. Patient has history of IVDA,has bipolar dx, and ETOH use disorder. Mother was working with him at home to get him detox so he could get heart procedure.
PCP Dr. Heller,
Pharmacy: [facility]
Mother hopes patient will be able to get short term physical rehab and or inpatient ETOH treatment.
Patient has not worked for quite awhile. 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
Patient to be followed by CM. Unclear at this time what his next level of care needs will be.
[2024-03-24 16:14] LABS: Hematocrit 23.8 % (39.0-52.0)
[2024-03-24 16:43] LABS: NT-proBNP 2230 pg/ml; Troponin I 0.183 ng/ml
--- NOTE | 2024-03-24 17:07 | PTCARENOTE ---
Reviewed the plan of care with Dr. Reese regarding IVF for hyponatremia.
[2024-03-24 17:19] LABS: Sodium 128 mmol/L (135-145)
[2024-03-24] MEDS: FLOVENT 220 MCG INHALER 2 PUFF INH (17:29)
[2024-03-24] MEDS: DUONEB 3 ML INH ×2 (17:29→21:22)
[2024-03-24 18:39] LABS: Glucose - Point of Care 110 mg/dl (70-99)
[2024-03-24] MEDS: BRIVIACT 100 MG IV (19:44)
[2024-03-24] MEDS: PHENOBARBITAL 104 MG IV (19:55)
--- NOTE | 2024-03-24 20:00 | PTCARENOTE ---
rec`d pt at 1900 intubated and sedated on fent and prop. NS also running. all gtts into rt double luman picc. pt does not follow commands. Will open eyes very wide to verbal and physical stimulation. does not track. pupils = and reactive. 3mm. scds
on pt. afebrile. hr anywhere 80s-100s. POX mid 90s. ett #8 @25. vent settings 20/550/40%/5 of peep. ogt draining green bilius. marked at 65, LIWS. hypoactive BS. murguia draining yellow urine. lower abdominal bruise noted, restraints. mother at
bedside, safe environment maintained.
[2024-03-24 23:41] LABS: Glucose - Point of Care 81 mg/dl (70-99)
[2024-03-25] VITALS (28 sets, daily range): BP systolic 89–136; BP diastolic 50–115; BMI 39.3
[2024-03-25] MEDS: LOPRESSOR 25 MG TUBE ×4 (00:37→17:57)
[2024-03-25] MEDS: DIPRIVAN 100 IV ×6 (00:37→22:38)
[2024-03-25] MEDS: SUBLIMAZE 50 MCG IV ×9 (01:16→22:30)
[2024-03-25] MEDS: ATIVAN 1 MG IV ×3 (02:04→17:36)
[2024-03-25] MEDS: SUBLIMAZE 100 IV ×2 (02:52→15:00)
[2024-03-25] MEDS: ATIVAN 2 MG IV ×2 (04:17→20:41)
[2024-03-25 04:29] LABS: % Basophils 0.5 % (0-2); % Eosinophils 1.6 % (0-6); % Immature Granulocytes 0.8 % (0-0.5); % Lymphocytes 13.2 % (20.5-51.1); % Monocytes 13.1 % (1.7-9.3); % Neutrophils 70.8 % (42.2-75.2); Absolute Eosinophils 0.1 10^3/uL (0-0.7); Absolute Immature Granulocytes 0.1 10^3/uL (0-0.05); Absolute Lymphocytes 0.9 10^3/uL (1.2-3.4); Absolute Monocytes 0.8 10^3/uL (0.1-0.6); Absolute Neutrophils 4.6 10^3/uL (1.4-6.5); Hematocrit 23.4 % (39.0-52.0); Hemoglobin 7.9 g/dL (13.0-18.0); Mean Corp Hgb Conc. 33.8 g/dL (33.0-37.0); Mean Corpuscular Hgb 30.6 pg (27.0-31.0); Mean Corpuscular Volume 90.7 fL (80.0-94.0); Mean Platelet Volume 11.1 fL (7.4-10.4); Nucleated Red Blood Cells % 0 % (-); Platelet Count 100 10^3/uL (130-400); Red Blood Cell Count 2.58 10^6/uL (4.70-6.10); Red Cell Dist. Width 15.9 % (11.5-14.5); White Blood Cell Count 6.4 10^3/uL (4.8-10.8)
[2024-03-25 04:38] LABS: INR 1.24; PT 15.9 Sec (11.4-14.6)
[2024-03-25 04:52] LABS: ALT (SGPT) 67 U/L (0-50); AST (SGOT) 121 U/L (17-59); Albumin 3.1 g/dl (3.5-5.0); Alkaline Phosphatase 43 U/L (38-126); Blood Urea Nitrogen 28 mg/dl (9-20); Calcium 7.5 mg/dl (8.4-10.2); Carbon Dioxide 30 mmol/L (22-30); Chloride 97 mmol/L (98-107); Direct Bilirubin 0.8 mg/dl (0.0-0.4); Estimated Creatinine Clearance > 125 ml/min; Glucose 88 mg/dl (70-99); Magnesium 1.9 mg/dl (1.6-2.3); Phosphorus 3.3 mg/dl (2.5-4.5); Potassium 3.5 mmol/L (3.5-5.1); Sodium 132 mmol/L (135-145); Total Bilirubin 1.7 mg/dl (0.2-1.3); Total Protein 5.2 g/dl (6.3-8.2); eGFR > 60.00
--- NOTE | 2024-03-25 05:00 | PTCARENOTE ---
pt needing several prn doses. agitated on vent. fent gtt up to 100
[2024-03-25] MEDS: UNASYN IV ×4 (05:34→20:51)
--- NOTE | 2024-03-25 07:11 | W.PN.HOSP.TC ---
Addendum entered and electronically signed by Makayla Davis MD 03/25/24 11:40:
I saw and evaluated the patient. I reviewed the resident�s note and agree with findings and plan as documented in the resident�s note.
A/P:
# Severe alcohol use disorder w/ possible withdrawal seizure
Currently intubated with sedation (see below)
MSAS protocol when extubated
# Cardiac Arrest s/p CPR
Intubated for airway protection
Vent and sedation per Design Assistant
CT head no acute intracranial abnormality
EEG not reliable with current sedation
# Elevated troponin, likely related to cardiac arrest
# lactic acidosis, resolved
trop peaked at 0.375
Echo noted moderately reduced EF 30-35%. The ventricle is globally hypokinetic. Diastolic function indeterminate.
Card on board
# Aspiration PNA
procal 0.48
CXR noted new mild right upper lobe airspace disease.
CT Chest with moderate bibasilar consolidation
Started IV Unasyn.
# Upper GI Bleed with melena
Holding HELP DESK INTERN Eliquis
s/p 1u pRBCs transfusion
Follow Hgb, today at 7.9
Continue Protonix IV twice daily
GI on board
# Elevated LFT, likely due to cardiac arrest in setting of alcohol abuse/fatty liver
Abd US: hepatic fatty infiltration
CT AP largely unrevealing
follow LFT
# Concurrent Epistaxis
s/p TXA & cauterization by ENT
No signs of active bleeding on exam
Cont packing, ENT following
# Hyponatremia likely due to alcohol abuse
sodium level 123 on admission, today at 132
cont to follow
# HFrEF
Continue HELP DESK INTERN lasix 20 PO via tube.
Lopressor 25q6 per cardiology.
# Asthma
# Likely underlying sleep apnea
Outpatient sleep study when extubated and clinically stable
# Bipolar Disorder
per mother, patient was on Lexapro but stopped on his own due to weight gain
Consider Psych CS when extubated and clinically more stable
Diet - NPO
DVT Ppx - SCDs
GI Ppx - Protonix 40 BID IV
Code Status - Full Code
Discussed with mother at bedside in person
CC mx 40 min
Original Note:
Today's Communication/Plan
-
Continue to wean sedation, c/w antiseizure prophylaxis per neuro, appreciate integration of care teams for the continued management of this patient.
Assessment / Plan
Assessment / Plan
38 year old male
#Possible aspiration PNA, likely prior to admission and worsened since admission - CXR on admission showing mild opacity in inf. right middle lobe with diagnostic possibility of pneumonia. However, CXR s/p seizure activity and intubation showing NEW
mild right upper lobe airspace disease concerning for developing pneumonia. C/w IV Unasyn. Repeat CXR this am, no leukocytosis.
#Vtach Cardiac Arrest w/ CPR
- CXR did not show any osseous abnormalities. TTM not initiated. currently sedated, on propofol ggt & fentanyl ggt. Currently weaned off pressure supports. Head CT showed atrophy and EEG showed diffuse cortical dysfunction without focal abnormality
and no seizure activity.
#Elevated troponins (resolved)- peaked, likely secondary to cardiac arrest.
#Alcohol Use Disorder w/ possible withdrawal seizure
- [facility] protocol. Getting thiamine and Folic acid. Ativan per protocol, however patient currently sedated. Will be mindful of possible withdrawal as he is weaned off sedation. Attempts to wean thus far have resulted in myoclonic movements; uncertain
if withdrawal seizures or hypoxic brain injury. Currently on antiseizure medication per neuro.
#Upper GI Bleed w/ Epistaxis
#Acute blood loss anemia
- patient's last dose Eliquis Friday morning; stopped himself due to bleeding. S/p 1u pRBCs. Will continue to monitor H&H. Transfuse if hgb <7.
- s/p TXA & cauterization for epistaxis. No signs of active bleeding on exam, monitoring hgb as above.
- Abd ultrasound showing Hepatic fatty infiltration; started on IV protonix per GI.
- ENT following.
#Hyponatremia - Up to 132 this AM. Will c/w gentle hydration at 60cc/hr NS.
#Elevated Glucose - initiated LDISS for glucose management
#Transaminitis, likely alcoholic fatty liver, possible compounding shock liver - Elevated AST/ALT on admission 2:1. history of alcohol use and obesity, possible chronic elevation from fatty liver vs. shock liver. Will continue to monitor. Trending
down.
#HFrEF - Continuing lasix 20 PO via tube. Lopressor 25q6 per cardiology. Echo showing EF of 30-35% with global hypokinesis w/ small pericardial effusion.
#Lactic Acidemia (resolved) - was elevated immediately post cardiac arrest, has come back down to normal. Blood gas showed metabolic acidosis without respiratory compensation.
#Asthma - per mother at bedside patient has been using his inhaler more frequently for night time shortness of breath. 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 sleep apnea vs. worsening Asthma, however history uncertain. Will continue to observe.
patient currently intubated, will reassess when medically stable.
#Bipolar Disorder - patient was on Lexapro but stopped on his own due to weight gain (obtained from mother at bedside). Presently patient is sedated, can consider psych consult in the future depending on patient status.
Diet - NPO
DVT Ppx - SCDs
GI Ppx - Protonix 40 BID IV
Code Status - Full Code
Anticipated Discharge: > 48 hours
Subjective/Interval History
-
Still sedated this morning.
Objective Data
-
Labs:
Laboratory Results
03/25/24 03/25/24
04:16 06:00
WBC 6.4
Hgb 7.9 L
Hct 23.4 L
Plt Count 100 L
PT 15.9 H
INR 1.24
HCO3 Pending
Sodium 132 L
Potassium 3.5
Chloride 97 L
Carbon Dioxide 30
BUN 28 H
Creatinine 0.9
Glucose 88
Calcium 7.5 L
Total Bilirubin 1.7 H
AST 121 H
ALT 67 H
Alkaline Phosphatase 43
Vital Signs:
Vital Signs
Temp Pulse Resp BP Pulse Ox
99.7 F 104 24 100/74 99
03/25/24 04:35 03/25/24 06:30 03/25/24 06:30 03/25/24 06:00 03/25/24 06:30
I&O
03/24/24 03/25/24 03/26/24
06:59 06:59 06:59
Intake Total 450 / 475 1155.2 / 1155.2
Output Total 5600 / 5600
Balance 450 / 125 -4444.8 / -4444.8
Review of Systems
-
Unable to obtain full review of systems at this time due to: Patient Intubation
History Source: Family
Physical Exam
-
General: Well Developed, Well Nourished, Intubated, Appears Chronically Ill and Obese
HEENT: Normocephalic, Atraumatic, Moist Mucous Membranes, PERRLA and Other (R side nasal packing with dried blood)
Respiratory: Other (Intubated and mechanically ventilated. ); Negative Wheezes or Rales
Cardiac: Regular Rhythm and S1/S2; Negative Murmur or Rub
GI: Soft, Nontender, Normal Bowel Sounds and Distended
Genito-urinary: Clear Urine and Muniz
Musculoskeletal: No Clubbing, No Cyanosis and No Edema
Neuro: Sedated
[2024-03-25] MEDS: DUONEB 3 ML INH ×4 (07:42→20:16)
[2024-03-25] MEDS: FLOVENT 220 MCG INHALER 2 PUFF INH ×2 (07:43→20:17)
[2024-03-25] MEDS: BRIVIACT 100 MG IV (08:00)
[2024-03-25] MEDS: PHENOBARBITAL 97.5 MG IV ×3 (08:00→20:50)
[2024-03-25] MEDS: FOLVITE 1 MG PO (08:00)
[2024-03-25] MEDS: PROTONIX IV 40 MG IV ×2 (08:00→20:50)
[2024-03-25] MEDS: MIRALAX 17 GRAMS TUBE (08:00)
[2024-03-25] MEDS: THIAMINE INJECTION 200 MG IV ×2 (08:00→20:50)
[2024-03-25] MEDS: NSS (PRESERVATIVE FREE) 10 ML IV ×2 (08:00→20:50)
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
[2024-03-25 08:15] LABS: B.E. 3.9 mmol/L; HCO3 27.6 mmol/L (21-28); O2 Saturation % 96.7 % (94-98); PCO2 37 mmHg (35-48); PO2 71 mmHg (83-108); pH 7.48 (7.35-7.45)
--- NOTE | 2024-03-25 08:28 | W.PN.INTV ---
Today's Communication / Plan
Recommendations
Mechanical ventilation with daily SAT/SBT if clinically appropriate
Slowly wean off propofol, while monitoring for seizure-like activity given alcohol abuse
Come down on fentanyl gtt as well to prepare for SAT tomorrow
Continue with phenobarbital
EEG performed today showing diffuse cortical dysfunction without focal abnormality or seizures
Antibiotics x 5-7 days total; follow up infectious workup
DuoNebs + Flovent
Thiamine/folic acid
Stress ulcer prophylaxis
SCDs; hold Eliquis for now
Continue ICU level of care for this critically ill patient
Assessment
-
Assessment: 38-year-old male non-smoker with a past medical history of persistent A-fib on Eliquis, bipolar affective disorder, asthma, and hypertension who presented with vomiting blood 1 day prior to arrival with dark stools as well as a
nosebleed. He has been having fatigue, shortness of breath and confusion with chest pain. He is normally on Eliquis but he has been holding it for few days due to his bleeding. He does follow-up with cardiology with last visit on 02/17/[address] Phillips[address] He has a history of nonischemic cardiomyopathy with prior EF of 20-25% with global hypokinesis from echo in December 2023. He was discussing getting an ablation for his A-fib. He has a history of cardioversion x 2 with failure to
restore into sinus rhythm. Also it has been difficult to choose an antiarrhythmic drug in the setting of his lithium drug use with risk of QT prolongation. In the ER he told the doctor he has been having a bloody nose which started on the day of
ER arrival, and has been vomiting bright red blood with dark tarry stools for 1 week. Last dose of Eliquis was on Friday (03/21/2024). In the ER he was afebrile to 97.1 �F, pulse rate 97, breathing at 20 breaths/minute, BP 129/83 and saturating 98%
on room air. Initial labs showed Hb 8.9, platelet count 115, sodium 123, chloride 87, BUN 33, serum osmolarity 302, and urinalysis negative for signs of UTI. Initial CXR showed suspected small right pleural effusion with possible pneumonia in the
right middle lobe. He was initially admitted to the IMU for a GI bleed with epistaxis. Overnight he was agitated and required Precedex drip so was transferred to the ICU, and developed a cardiac arrest while trying to get up out of bed. He was
labeled DNR however when the ICU MARKETING PROGRAMS MANAGER call the family this was reversed, and CPR/ACLS was initiated. He was given an amp of epinephrine and pulse was regained and then he became bradycardic and lost pulse again. CPR resumed and given 2 A of epi and
patient was intubated. ROSC regained. Due to his prearrest seizure-like activity, neurology was called and empiric Keppra was given. TTM was not started given his acute upper GI bleed and epistaxis. He has continued to be managed in the ICU and
client services vice president services consulted for additional management/recommendations.
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
Impression:
#Hemorrhagic shock - shock state now resolved
#In-hospital cardiac arrest with preceding seizure-like activity (withdrawal seizure vs myoclonic jerks)
#Acute blood loss anemia due to reported epistaxis and UGIB with hematemesis
#Acute respiratory failure with hypoxia now on mechanical ventilation
#RUL + bilateral lower lobe pneumonia (confirmed on CT Chest from 03/24/2024)
#Acute thrombocytopenia
#Alcoholism with use of alcohol use drinking vodka daily as well as wine
#Suspected alcohol withdrawal seizure
#History of anxiety
#Metabolic acidosis with increased anion gap + respiratory acidosis - acidosis now resolved
#Lactic acidosis � now resolved
#Hypochloremic, hyponatremia
#Hyperglycemia � now resolved
#Transaminitis with hyperbilirubinemia
#Elevated troponin likely due to cardiac arrest
#Chronic HFrEF with RV dysfunction seen on TTE from 03/24/2024
Plan:
- Initially patient admitted to the ICU and in the middle the night became agitated and tried to get out of bed, then had seizure-like activity, became unresponsive and then cardiac arrested s/p ROSC
- Unable to do hypothermic protocol due to upper GI bleed
- Ensure core temperature-sensing probe remains in place x 48-72 hours to assure fever is avoided
- Minimize sedation to help prognosticate, although continue AEDs as per neurology
- Neurology consulted --> EEG done AM of 03/24 showing very low amplitude with near cerebral signs, likely due to sedation that was administered prior to EEG
- CT head shows no acute intracranial pathology with acute and chronic sinusitis
- Continue mechanical ventilation with daily SAT/SBT if clinically appropriate
- Titrate FiO2 + PEEP to keep SpO2 >94%
- Maintain plateau pressure <30
- Frequent oropharyngeal + deep ETT suctioning as needed
- Postcardiac arrest CXR showed new opacification in the right upper lobe concerning for aspiration, and CT chest confirmed RUL/bibasilar pneumonia--> continue Unasyn and check respiratory Cx
- Check urine antigens for legionella and Strep PNA
- Given history of asthma with peak to plateau difference was >5 on 03/24/2024 with prolonged expiration, continue scheduled DuoNebs + Flovent BID
- prn nebulized bronchodilators
- GI consulted; there definitely is concern for an upper GI bleed as he had reported vomiting blood with tarry stools for a week, and his BUN is elevated with normal creatinine (although he was reportedly on steroids prior to admission, but mother
said he was on steroids for an asthma flare 'few weeks ago,' so this would not still cause a rise in his BUN at this current time)
- Maintain large bore IV x2
- PPI 40mg IV BID
- Defer EGD to GI - currently being held off
- Abdominal ultrasound 03/24 shows hepatic fatty infiltration with no signs of cirrhosis
- Given transaminitis with hyperbilirubinemia, check ammonia level
- Trend H/H and transfuse if needed to keep Hb>7g/dL; keep plt>50k
- Hold antiplatelet/anticoagulants
- Continue thiamine + folic acid
- Continue phenobarbital to prevent any seizure activity from alcohol withdrawal while we wean down on propofol
- This was discussed with neurology and Dr. Davison agrees with this plan
- Continue nasal packing in R-nares
- ENT following
- Unasyn as above while packing is in place to prevent TSS
- Continue trending sNa
- Trend LFTs
- Trend sHCO3 level and trend pH and pCO2 - no need for bicarb drip at this time as he is now alkalemic
- Continue with Lopressor 25mg q6hr with holding parameters (takes Toprol-XL at home)
- Cardiology on board and recommendations appreciated
- Maintain MAP>65
- Replete electrolytes with K>4, Mg>2
- Maintain euglycemia with goal BG 140-180 with ISS q6hr
- DVT ppx: SCDs; stopped his Eliquis ENGINEERING PROJECT MANAGER due to nosebleeds, plus he was scheduled for an ablation given Hx of A-fib - continue to hold until Hb stable for >48 hrs with no signs of bleeding clinically
Critical care statement: A total of 46 minutes of critical care time was provided for this patient today. This includes management of unstable vital signs, evaluation of the patient at bedside, reviewing the patient's pertinent medical records
including radiographs, microbiology, laboratory evaluations, and discussion with primary team, consultants, pharmacy, nutrition, physical therapy, case management, charge nurse, critical care nursing, and respiratory therapy.
Data:
CXR 03/24/2024:
New mild right upper lobe airspace disease concerning for developing pneumonia.
Possible developing pneumonia in the right costophrenic angle versus atelectasis. Progressed. Mild.
Tiny right pleural effusion. Progressed.
Cardiomegaly. Stable.
CT chest/abdomen/pelvis without contrast 03/24/2024:
Moderate bibasilar consolidation. This may represent atelectasis or pneumonia.
Bilateral lower lobe, lingular and right upper lobe atelectasis versus scarring.
Small pericardial effusion.
Findings suggesting mild volume overload or third spacing.
Minimal diverticulosis.
Subjective Dataa
Subjective Data
Date of Service:
Date of Service: March 25, 2024
Chief Complaint: Cell Phone Repair Technician Follow Up
Subjective:
Patient seen and evaluated today at bedside. Afebrile overnight. Patient remains intubated on AC/CMV at 20/550/5/40%, with PIP: 24 cmH2O, VTe 555cc and breathing at 20 breaths/minute. Heart rate 106, saturating 94% and BP 130/111. ETCO2: 28 with
no shark-fin morphology seen. Having 'clinching' episodes where he chews on ETT at the same time. Minimal ETT secretions, and having excessive oral secretions. Not on pressors. On propofol at 30mcg/kg/min and fentanyl drip at 100mcg/hr. Mother
at bedside and all questions were answered.
Review of Systems
General: Unobtainable - Pat Unresp (Intubated/sedated)
Objective Data
Data Reviewed
Vital Signs / I&O / Oxygen:
Vital Signs
Temp Pulse Resp BP Pulse Ox
99.7 F 95 20 100/74 97
03/25/24 04:35 03/25/24 07:53 03/25/24 07:53 03/25/24 06:00 03/25/24 07:55
Intake and Output
03/24/24 03/25/24 03/26/24
06:59 06:59 06:59
Intake Total 450 / 475 1155.2 / 1155.2
Output Total 5600 / 5600
Balance 450 / 125 -4444.8 / -4444.8
SaO2 [A/C] 94
SaO2 97
Physical Exam
General: Respiratory Distress (negative), Chills (negative) and Sweats (negative)
HEENT: Normocephalic and Anicteric
Cardiovascular: S1-S2, Peripheral Edema (Trace lower extremity edema bilaterally) and Other (Tachycardic)
Respiratory: Wheeze (negative), Crackles (negative), Rhonchi (negative), Non-Labored Respirations and ET Tube (Mechanical breath sounds heard bilaterally)
GI: Soft, Distended (Abdominal obesity), Non Tender and Normal Bowel Sounds
Neurology: Tremors (negative) and Unresponsive
Skin: Warm, Dry, Cyanosis (negative), Jaundice (negative) and Rash (negative)
Labs/Micro/Reports
Lab Data
03/25/24 04:16
03/25/24 04:16
Laboratory Results
03/25/24 03/25/24
04:16 08:05
PT 15.9 H
INR 1.24
pH 7.48 H
pCO2 37
pO2 71 L
HCO3 27.6
O2 Delivery Level
Microbiology
03/24/24 17:54 Urine Legionella Urinary Antigen - Final
Negative for Legionella pneumophila Serogroup 1 antigen.
A negative result does not rule out the possiblity of
Legionella infection due to other serogroups or species of
Legionella. Clinical correlation is recommended.
03/24/24 17:54 Urine Streptococcus pneumoniae Antigen (M - Final
Negative for Streptococcus pneumoniae antigen.
A negative result does not exclude infection with
Streptococcus pneumoniae. Clinical correlation is
recommended.
--- NOTE | 2024-03-25 09:14 | W.PN.NEURO.1 ---
Today's Communication / Plan
-
Initiated now discontinue brivaracetam
Replace brivaracetam with phenobarbital as part of alcohol withdrawal protocol to prevent seizures
Recheck EEG if patient fails to have return of normal consciousness despite discontinuance of sedation
Neuro Assessment/Plan
Assessment
Abrupt onset of change in mental status immediately preceding spontaneous cardiac arrest. Patient's event is most likely not epileptiform and instead reactive to relative cardiac dysfunction
Patient was at slightly higher risk for epileptiform event due to prior history of alcohol abuse and hyponatremia
Plan
Initiated now discontinue brivaracetam
Replace brivaracetam with phenobarbital as part of alcohol withdrawal protocol to prevent seizures
Recheck EEG if patient fails to have return of normal consciousness despite discontinuance of sedation
Will follow
Subjective/Objective
Subjective Data
Date of Service: March 25, 2024
Patient unable to provide his own medical history
Objective Data
Vital Signs
Temp Pulse Resp BP Pulse Ox
37.6 C 95 20 100/74 97
03/25/24 04:35 03/25/24 07:53 03/25/24 07:53 03/25/24 06:00 03/25/24 07:55
Lab Results
03/25/24 04:16
03/25/24 04:16
PT 15.9 Sec (11.4-14.6) H 03/25/24 04:16
INR 1.24 03/25/24 04:16
APTT 26.3 Sec (23.4-35.0) 03/24/24 03:19
Sodium 132 mmol/L (135-145) L 03/25/24 04:16
Potassium 3.5 mmol/L (3.5-5.1) 03/25/24 04:16
BUN 28 mg/dl (9-20) H 03/25/24 04:16
Glucose 88 mg/dl (70-99) 03/25/24 04:16
Calcium 7.5 mg/dl (8.4-10.2) L 03/25/24 04:16
Phosphorus 3.3 mg/dl (2.5-4.5) 03/25/24 04:16
Vtq-E-Llmjmowqesk Pept 2230 pg/ml 03/24/24 16:04
Ur Buprenorphine Negative (Negative) 03/24/24 10:18
Patient Allergies
pollen extracts Allergy (Verified 03/23/24 18:20)
seasonal allergy/Nasal congestion
Review of Systems
-
Unable to obtain full review of systems at this time due to: Patient Intubation and Lethargy
History Source: Patient
All other systems: Reviewed and negative
Physical Exam
-
General: No Apparent Distress, Intubated and Appears Stated Age
Eyes: Round OU and [place] Conjunctivae
HEENT: Anicteric and Moist Mucous Membranes
Neck: Full Range of Motion
Respiratory: No Dyspnea
Cardiac: No JVD
GI: Non-distended
Skin: Unremarkable
Extremities: No Clubbing, No Cyanosis and No Edema
Psych: Unable to Assess
Extended Neurological Exam
Mood & Affect: Unable to Assess
Attention Span & Concentration: Unresponsive to Verbal Stimuli and Unresponsive to Physical Stimuli; Negative Awake, Alert or Interactive
Memory: Unable to Assess
Involuntary Movement: None
Speech: Unable to Assess
Cranial Nerve II: Left Eye: Pupillary Reactivity Unremarkable, Pupillary Size Unremarkable and Unable to Assess Visual Lopez
Cranial Nerve II: Right Eye: Pupillary Reactivity Unremarkable, Pupillary Size Unremarkable and Unable to Assess Visual Lopez
Cranial Nerves III, IV, : Extraocular Movement: Absent Doll's Eyes and Unable to Assess (Ptosis)
Cranial Nerve V: Facial Sensation: Unable to Assess
Cranial Nerve VII: Facial Symmetry: Normal Facial Symmetry and Other (Smooth eye closure after passive eye opening)
Cranial Nerves IX, X: Palate Movement: Unable to Assess
Cranial Nerve XI: Shoulder Shrug: Unable to Assess
Cranial Nerve XII: Tongue Protusion: Unable to Assess
Muscle Strength, Overall: Negative Spontaneously Moves
Muscle Bulk & Tone: Bulk Unremarkable and Tone Unremarkable
Pronator Drift: Unable to Assess
Cold Sensation: Unable to Assess
Vibration Sensation: Unable to Assess
Touch Sensation: Negative Withdrawal to Pain
Coordination: Unable to Assess
Gait & Station: Unable to Assess
Data Reviewed
-
CT Head: Report Reviewed and Image Reviewed
EEG: Ordered and Report Reviewed
Labs: Report Reviewed
Reviewed with: Physician and Family
Old Records: Summarized
Past History
Past History
ED Past Medical History: HTN, Psychiatric and Other (Substance abuse)
ED Past Surgical History: None
Social History
Tobacco: Non-smoker
Alcohol: Occasional
Drug: Marijuana, Narcotics, IVDA and Other
Personal: Single
Living: with family
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
Family History
Family History: Other (Noncontributory)
Medications
-
Medications:
Generic Name Dose Route Start Last Admin
Trade Name Freq PRN Reason Stop Dose Admin
Albuterol 2 puff 03/23/24 22:54
Albuterol Hfa [90 Mcg/Dose] Inhaler INH
R Q8HPRN PRN
sob
Protocol
Albuterol Sulfate 2.5 mg 03/23/24 22:54 03/24/24 05:01
Albuterol Nebs 2.5 Mg/3 Ml Ampul INH 2.5 mg
R Q4HPRN PRN Administration
shortness of breath or wheezing
Protocol
Albuterol/Ipratropium 3 ml 03/24/24 20:00 03/25/24 07:42
Ipratropium 0.5/Albuterol 3 Mg (3 Ml Ampul) INH 3 ml
R QID LAITH Administration
Protocol
Fentanyl Citrate 50 mcg 03/24/24 03:45 03/24/24 17:48
Fentanyl (50 Mcg/Ml) 100 Mcg/2 Ml Ampul IV 04/07/24 03:44 50 mcg
Q1HPRN PRN Administration
venttilator dyssynchrony
Fentanyl Citrate 50 mcg 03/24/24 11:10 03/25/24 05:24
Fentanyl (50 Mcg/Ml) 100 Mcg/2 Ml Ampul IV 04/07/24 11:09 50 mcg
[id number] PRN Administration
see protocol
Protocol
Fluticasone Propionate 2 puff 03/25/24 08:00 03/25/24 07:43
Fluticasone 220 Mcg Inhaler INH 04/22/24 07:59 2 puff
R BID LAITH Administration
Protocol
Folic Acid 1 mg 03/24/24 08:00 03/24/24 08:50
Folic Acid 1 Mg Tablet PO 04/21/24 07:59 Not Given
DAILY LAITH
Folic Acid 1 mg/ Sodium 50.2 mls @ 200.8 mls/hr 03/24/24 02:08
Chloride IV 04/21/24 02:07
DAILYPRN PRN
if NPO
Ampicillin Sodium/Sulbactam 120 mls @ 240 mls/hr 03/24/24 10:00 03/25/24 05:34
Sodium 3 gm/ Sodium Chloride IV 03/31/24 04:29 120 mls
Q6H LAITH Administration
Fentanyl Citrate 1,000 mcg in 100 mls @ 0 mls/hr 03/24/24 11:15 03/25/24 02:52
Sublimaze IV 100 mls
PER PROTOCOL LAITH Administration
Protocol
Per Protocol
Propofol 1,000,000 mcg in 100 mls @ 0 mls/hr 03/24/24 11:15 03/25/24 04:04
Diprivan IV 100 mls
PER PROTOCOL LAITH Administration
Protocol
Per Protocol
Sodium Chloride 1,000 mls @ 60 mls/hr 03/24/24 16:15 03/24/24 18:22
Nss IV 1,000 mls
[id number] LAITH Administration
Potassium Chloride 40 meq/ 270 mls @ 67.5 mls/hr 03/25/24 08:21
Dextrose IV 03/25/24 12:20
NOW STA
Insulin Aspart 0 units 03/24/24 18:00 03/25/24 05:43
Insulin Aspart Low Resistance 300 Units/3 Ml Pen.Injctr SC 04/21/24 17:59 Not Given
Q6 LAITH
Protocol
Lorazepam 1 mg 03/24/24 02:08 03/25/24 02:04
Lorazepam 2 Mg/Ml Vial IV 04/21/24 02:07 1 mg
Q1HPRN PRN Administration
MSAS 8-11
Lorazepam 2 mg 03/24/24 02:08 03/25/24 04:17
Lorazepam 2 Mg/Ml Vial IV 04/21/24 02:07 2 mg
Q1HPRN PRN Administration
MSAS > 11
Metoprolol Tartrate 25 mg 03/24/24 12:00 03/25/24 05:50
Metoprolol 25 Mg Regular Release Tablet TUBE 04/21/24 11:59 25 mg
Q6 LAITH Administration
Pantoprazole Sodium 40 mg 03/24/24 08:00 03/24/24 19:44
Pantoprazole Sodium 40 Mg/10 Ml Vial IV 04/21/24 07:59 40 mg
BID LAITH Administration
Phenobarbital Sodium 64.8 mg 03/27/24 08:00
Phenobarbital 32.4 Mg Tablet PO 03/28/24 22:01
TID LAITH
Phenobarbital Sodium 32.4 mg 03/29/24 08:00
Phenobarbital 32.4 Mg Tablet PO 03/30/24 22:01
TID LAITH
Phenobarbital Sodium 97.5 mg 03/25/24 08:00
Phenobarbital (65 Mg/Ml) 1 Ml Vial IV 03/26/24 22:01
TID LAITH
Polyethylene Glycol 17 grams 03/25/24 08:00
Polyethylene Glycol Powder 17 Grams Packet TUBE 04/22/24 07:59
DAILY LAITH
Sodium Chloride 0 flush 03/23/24 22:00 03/23/24 21:18
Sodium Chloride 0.9% (Flush) Syringe IV 04/20/24 21:59 1 flush
PER PROTOCOL LAITH Administration
Sodium Chloride 10 ml 03/24/24 08:00 03/24/24 19:43
Sodium Chloride 0.9% (Preservative Free) 10 Ml Vial IV 04/21/24 07:59 10 ml
BID LAITH Administration
Sodium Chloride 0 ml 03/24/24 02:08 03/24/24 11:57
Sodium Chloride 0.9% (Preservative Free) 10 Ml Vial IV 04/21/24 02:07 0.5 ml
PRN PRN Administration
To dilute IV Ativan
Protocol
Thiamine HCl 200 mg 03/24/24 08:00 03/24/24 19:44
Thiamine (100 Mg/Ml) 2 Ml Vial IV 03/26/24 20:01 200 mg
Q12 LAITH Administration
Thiamine HCl 100 mg 03/27/24 08:00
Thiamine 100 Mg Tablet PO 04/24/24 07:59
BID LAITH
--- NOTE | 2024-03-25 09:35 | PN.CDI ---
CDI
- -
CDI:
Physician Documentation Request
Admit Date: 03/23/24 19:09
Dear Doctor Mary Ann,
Clinical Indicators:
Patient admitted with upper GI bleed/vomiting and epistaxis.
03/23 CXR, 'Mild opacity in the inferior right middle lobe. Diagnostic possibilities are (1) mild pneumonia or (2) mild subsegmental atelectasis/scarring.'
03/24 Cardiac arrest, intubated.
03/24 PN, 'Possible aspiration PNA - CXR showing new mild right upper lobe airspace disease concerning for developing pneumonia'
Please clarify the following:
Aspiration Pneumonia was present on admission
Aspiration Pneumonia was not present on admission
Unable to determine
Use of terms such as suspected, likely, concern for, or probable (associated with a specific diagnosis that is being evaluated, monitored, or treated as if it exists) are acceptable and can be coded in the inpatient setting, when documented at the
time of discharge.
Thank you,
Moon Ch RN BSN
CDI Specialist
available via tiger text
Please use your independent medical judgment in providing your response.
[2024-03-25] MEDS: KCL 270 MEQ IV (10:46)
--- NOTE | 2024-03-25 11:02 | W.PN.GI.CBS2 ---
Today's Communication / Plan
-
Continue monitor H&H
Continue PPI
Assessment / Plan
-
Pt is a 38yo with hx afib on Eliquis due for ablation, HTN, HFrEF 20-25 % per echo in 12/2023, asthma, bipolar, anxiety, substance abuse in past, ETOH abuse, GERD, with admission to for upper GI bleed and dark tarry stools for 1 week. He
reported in ER onset of epistaxis. On admission noted with hbg 8.9 with platelets 115, INR 1.42, Na 123, BUN 33, lactate 6.2, bili 1.5, AST 112, ALT 71, alk phos 53, albumin 3.8 and rise in troponin to 0.035 after admission. After admission
noted with climbing out of bed, seizure like activity with unresponsiveness with agonal breathing. Pt was initial noted as DNR but after review with family pt was full code with pt noted with PEA arrest, s/p CPR/intubation, epi with ROSC with noted
hemoptysis. Pt is for ENT and GI eval for bleeding source.
-Epistaxis/ hemoptysis/hematemesis / black stools/ acute blood loss anemia -- upper GI bleeding vs epistaxis .
-s/p PEA arrest/seizure after admission -- CPR s/p intubation now
-ETOH abuse/prior hx Multi substance abuse
-afib with Eliquis-- prior to admission due for ablation. last dose 03/21
-HfrEF 20-25% per echo in December 2023
- elevated liver test -can be multifactorial. EtOH use/substance abuse / fatty liver / s/p cardiac arrest
- lactic acidosis
plan
Patient remains intubated. NGT material clearing up- more bilious now. no BM. s/p nasal packing from ENT. discussed with mother at bedside yesterday - Considering patient was having severe epistaxis s/p nasal packing on admissions followed by
cardiac arrest s/p CPR + intubation we will hold off on EGD . Hb relatively stable . Will consider EGD if any evidence of overt GI bleeding
US abdomen -no cirrhosis
will recommend monitor H/H
continue protonix bid
continue monitor LFT
Continue further care as per medical / critical care team
No further recommendation at this point. Will sign off for now. Please call us back if any question or overt GI bleeding
Total Time Spent with Patient (in minutes): 35
Subjective
Subjective
Date of Service: March 25, 2024
Patient remains intubated. NG tube drainage-no blood. Clearing and more bilious like secretion now. No rectal bleeding.
Objective
Data Reviewed
Laboratory Data:
Laboratory Results
03/25/24 04:16
03/25/24 04:16
Laboratory Results
PT 15.9 Sec (11.4-14.6) H 03/25/24 04:16
INR 1.24 03/25/24 04:16
APTT 26.3 Sec (23.4-35.0) 03/24/24 03:19
Phosphorus 3.3 mg/dl (2.5-4.5) 03/25/24 04:16
Magnesium 1.9 mg/dl (1.6-2.3) 03/25/24 04:16
Total Bilirubin 1.7 mg/dl (0.2-1.3) H 03/25/24 04:16
AST 121 U/L (17-59) H 03/25/24 04:16
ALT 67 U/L (0-50) H 03/25/24 04:16
Alkaline Phosphatase 43 U/L (38-126) 03/25/24 04:16
Lipase 133 U/L (23-300) 03/24/24 03:19
Vital Signs and I&O:
Vital Signs
Temp Pulse Resp BP Pulse Ox
99.8 F 95 20 100/74 97
03/25/24 07:35 03/25/24 07:53 03/25/24 07:53 03/25/24 06:00 03/25/24 07:55
I&O
03/24/24 03/25/24 03/26/24
06:59 06:59 06:59
Intake Total 450 / 475 1155.2 / 1155.2
Output Total 5600 / 5600
Balance 450 / 125 -4444.8 / -4444.8
Physical Exam
Physical Exam
GI: Soft and Non Distended
--- NOTE | 2024-03-25 11:16 | W.PN.UPDATE ---
Update Note
Progress Note Update
Epistaxis
Packing in place, no ant bleeding
Hgb low but stable
Some blood suctioned from oral cavity according to nurse
VSS
Epistaxis
No significant active bleeding
Eliquis on hold
Hgb low but stable
Continue packing at least until tomorrow
[2024-03-25] MEDS: NSS 1000 IV (12:14)
--- NOTE | 2024-03-25 12:20 | PTCARENOTE ---
systems reviewed. pt still continues with intermittent agitation/tense rigidity in movement. prn fentanyl and ativan given as charted with pt 'chewing on ett/bite block if not in place. Ett repositioned multiple times without improvement. Pt
does not follow commands or interact with staff. Friend/family updated t/o shift. Restraints remain in place.
[2024-03-25 12:58] LABS: Glucose - Point of Care 95 mg/dl (70-99)
[2024-03-25] MEDS: LASIX 40 MG IV (13:52)
--- NOTE | 2024-03-25 15:10 | EEG.RPT ---
Electroencephalogram Report
Recording
Date of EE03/25/24
Type of EEG: Routine
Length of EEG recordin minutes
Done with Video Recording: Yes
Patient Status: Inpatient
Recording Conditions: Awake, Drowsy and Asleep
Hyperventilation Performed: No
Photic Stimulation Performed: Yes
Report
GREATER THAN 1 HOUR EEG REPORT
EEG INTERPRETATION:
Mildly abnormal EEG for age due to diffuse bihemispheric slowing
CLINICAL CORRELATION:
This study was mildly suggestive of diffuse cortical dysfunction without focal abnormality. No seizures were recorded.
Clinical correlation is advised.
METHODS:
A 21 channel digitized electroencephalogram (EEG) was performed at the bedside in the intensive care unit. The 10/20 international system of electrode placement was used with ECG and lateral/vertical eye movements recorded. Persyst QEEG monitoring
was performed.
QUALITY OF STUDY:
Good at times limited by muscle artifact
ELECTROENCEPHALOGRAPHER IMPRESSION(S):
Background
There was a medium amplitude fairly well organized anterior-posterior voltage gradient of theta frequency at maximum. Beta frequency background was also demonstrated at times
There were no significant asymmetries of background activity noted.
Sleep
Drowsiness present
Stage II sleep was minimally suggested during the study with sleep spindles
Photic Stimulation
Failed to activate the record.
ECG
Normal sinus rhythm
--- NOTE | 2024-03-25 15:33 | CM ---
CM following re: discharge planning.
Reviewed pt's chart, met with pt. Pt's mother and pt's sister at bedside.
Per Rounds meeting, pt remains intubated, continue supportive care.
Pt's mother stated pt lives with parents, has no children. pt's mother and pt's sister report that pt has significant h/o alcohol abuse, has been drinking since his , choice of drink - vodka. Per sister pt had h/o IV heroin abuse, went to rehab
6 years ago and after that pt's has been clean but turned heavier to drinking. Per sister, pt's many family members were and are alcoholics. Per sister, mental health runs in family, a few pt's family members committed suicide. Per sister, pt has
Bipolar disorder, is not taking psychotropic meds regularly. Per mother, pt has been experiencing and witnessing many deaths: family members, friend. Pt's mother stated she found 8 empty bottles from vodka in his room. 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
Both pt's mother and pt's sister agree that pt will agree to meet with [facility] and they hope that pt will be interested in inpatient D&A rehab. CM will make a referral to [facility] when clinically appropriate.
D/C plan: uncertain at this time and will depend on pt's progress.
CM will follow with discharge plan updates as hospitalization progresses
--- NOTE | 2024-03-25 17:55 | PTCARENOTE ---
Pt continues with periods of agitation that increase with stimulation. Moderate amount oral secretions t/o shift. Intermittent bloody secretions from the back of throat. Otherwise no changes.
[2024-03-25 18:16] LABS: Glucose - Point of Care 108 mg/dl (70-99)
--- NOTE | 2024-03-25 20:00 | PTCARENOTE ---
rec`d pt at 1900 agitated and restless in bed. several bolus given= see MAR. prop and fent gtts continued. Rt dual luman PICC flushed and patent. scds on pt. pupils equal. +gag. #8 ETT @25 vent settings 20/500/40%/ 5 of peep. POX mid 90s. OGT at 65
loli,murguia in place. round obese abdomen. restraints. ;eft lower abdominal bruise. family at bedside. safe environment maintained.
[2024-03-26] VITALS (28 sets, daily range): BP systolic 87–143; BP diastolic 58–131; BMI 39.6
[2024-03-26] MEDS: LOPRESSOR 25 MG TUBE ×4 (00:58→18:01)
[2024-03-26 01:11] LABS: Glucose - Point of Care 97 mg/dl (70-99)
[2024-03-26] MEDS: SUBLIMAZE 50 MCG IV ×8 (01:13→23:34)
[2024-03-26] MEDS: ATIVAN 2 MG IV ×3 (01:13→21:12)
[2024-03-26] MEDS: SUBLIMAZE 100 IV ×3 (01:55→21:46)
[2024-03-26] MEDS: DIPRIVAN 100 IV ×4 (01:57→13:08)
[2024-03-26 04:09] LABS: % Basophils 0.9 % (0-2); % Eosinophils 3.6 % (0-6); % Immature Granulocytes 1.3 % (0-0.5); % Lymphocytes 15.6 % (20.5-51.1); % Monocytes 18.5 % (1.7-9.3); % Neutrophils 60.1 % (42.2-75.2); Absolute Eosinophils 0.2 10^3/uL (0-0.7); Absolute Immature Granulocytes 0.1 10^3/uL (0-0.05); Absolute Lymphocytes 0.7 10^3/uL (1.2-3.4); Absolute Monocytes 0.8 10^3/uL (0.1-0.6); Absolute Neutrophils 2.7 10^3/uL (1.4-6.5); Hematocrit 22.5 % (39.0-52.0); Hemoglobin 7.2 g/dL (13.0-18.0); Mean Corpuscular Hgb 29.4 pg (27.0-31.0); Mean Corpuscular Volume 91.8 fL (80.0-94.0); Mean Platelet Volume 10.1 fL (7.4-10.4); Nucleated Red Blood Cells % 0 % (-); Platelet Count 105 10^3/uL (130-400); Red Blood Cell Count 2.45 10^6/uL (4.70-6.10); Red Cell Dist. Width 16.3 % (11.5-14.5); White Blood Cell Count 4.5 10^3/uL (4.8-10.8)
[2024-03-26 04:25] LABS: Ammonia < 9 umol/L (9-30)
[2024-03-26] MEDS: UNASYN IV ×4 (04:28→21:56)
[2024-03-26 04:41] LABS: ALT (SGPT) 56 U/L (0-50); AST (SGOT) 94 U/L (17-59); Albumin 2.8 g/dl (3.5-5.0); Alkaline Phosphatase 44 U/L (38-126); Blood Urea Nitrogen 21 mg/dl (9-20); Calcium 7.5 mg/dl (8.4-10.2); Carbon Dioxide 27 mmol/L (22-30); Chloride 100 mmol/L (98-107); Estimated Creatinine Clearance > 125 ml/min; Glucose 86 mg/dl (70-99); Magnesium 1.9 mg/dl (1.6-2.3); Phosphorus 4.1 mg/dl (2.5-4.5); Potassium 3.4 mmol/L (3.5-5.1); Sodium 132 mmol/L (135-145); Total Bilirubin 1.4 mg/dl (0.2-1.3); eGFR > 60.00
--- NOTE | 2024-03-26 04:41 | PTCARENOTE ---
spoke to Sanju from [facility], gave him an update on pt.
[2024-03-26 04:42] LABS: NT-proBNP 742 pg/ml
[2024-03-26 04:51] LABS: B.E. 3.1 mmol/L; HCO3 26.9 mmol/L (21-28); O2 Saturation % 98.9 % (94-98); PCO2 37 mmHg (35-48); PO2 93 mmHg (83-108); pH 7.47 (7.35-7.45)
[2024-03-26 04:53] LABS: O2 Therapy 40%
[2024-03-26] MEDS: KCL 270 MEQ IV (05:16)
--- NOTE | 2024-03-26 07:23 | W.PN.HOSP.TC ---
Addendum entered and electronically signed by Makayla Davis MD 03/26/24 18:13:
I saw and evaluated the patient. I reviewed the resident�s note and agree with findings and plan as documented in the resident�s note.
A/P:
# Severe alcohol use disorder w/ possible withdrawal seizure
Currently intubated with sedation
Slowly wean off propofol, started Seroquel and Precedex to help wean off propofol more easily
weaning fentanyl gtt as well by [facility]
Continue with phenobarbital
Off brivaracetam
neuro on board
MSAS protocol when extubated
# Cardiac Arrest s/p CPR
Intubated for airway protection
Vent and sedation per [facility]
CT head no acute intracranial abnormality
EEG not reliable with current sedation, showed diffuse cortical dysfunction without focal abnormality or seizures
# Elevated troponin, likely related to cardiac arrest
# lactic acidosis, resolved
trop peaked at 0.375
Echo noted moderately reduced EF 30-35%. The ventricle is globally hypokinetic. Diastolic function indeterminate.
Metoprolol 25 mg Q6H for rate control of AFib
Eliquis on hold
Card on board
# Aspiration PNA
CXR noted new mild right upper lobe airspace disease.
CT Chest with moderate bibasilar consolidation.
procal 0.48
Cont IV Unasyn.
# Upper GI Bleed with melena
Holding SENIOR SUPPORT ANALYST Eliquis
s/p 1u pRBCs transfusion
Follow Hgb, today at 7.2
Continue Protonix IV twice daily
GI on board
# Elevated LFT, likely due to cardiac arrest in setting of alcohol abuse/fatty liver
Abd US: hepatic fatty infiltration
CT AP largely unrevealing
follow LFT
# Concurrent Epistaxis
s/p TXA & cauterization by ENT
No signs of active bleeding on exam
Cont packing, ENT following
# Hyponatremia likely due to alcohol abuse
sodium level 123 on admission, today at 132
cont to follow
# HFrEF
now on IV lasix 40 mg daily
Lopressor 25q6 per cardiology.
# Asthma
# Likely underlying sleep apnea
Outpatient sleep study when extubated and clinically stable
# Bipolar Disorder
per mother, patient was on Lexapro but stopped on his own due to weight gain
Consider Psych CS when extubated and clinically more stable
Diet - tube feed
DVT Ppx - SCDs
GI Ppx - Protonix 40 BID IV
Code Status - Full Code
Discussed with mother at bedside in person
Original Note:
Today's Communication/Plan
-
C/w IV abx. Continue to wean sedation as tolerated. Appreciate care teams involved with this patient.
Assessment / Plan
Assessment / Plan
38 year old male
#Possible aspiration PNA, likely prior to admission and worsened since admission - CXR on admission showing mild opacity in inf. right middle lobe with diagnostic possibility of pneumonia. However, CXR s/p seizure activity and intubation showing NEW
mild right upper lobe airspace disease concerning for developing pneumonia. C/w IV Unasyn.
#Vtach Cardiac Arrest w/ CPR
- CXR did not show any osseous abnormalities. TTM not initiated. currently sedated, on propofol ggt & fentanyl ggt. Currently weaned off pressure supports. Head CT showed atrophy and EEG showed diffuse cortical dysfunction without focal abnormality
and no seizure activity.
#Alcohol Use Disorder w/ possible withdrawal seizure
- MSAS protocol. Getting thiamine and Folic acid. Ativan per protocol, however patient currently sedated. Will be mindful of possible withdrawal as he is weaned off sedation. Attempts to wean thus far have resulted in myoclonic movements; uncertain
if withdrawal seizures or hypoxic brain injury.
#Upper GI Bleed w/ Epistaxis
#Acute blood loss anemia
- patient's last dose Eliquis Friday morning; stopped himself due to bleeding. S/p 1u pRBCs. Will continue to monitor H&H. Transfuse if hgb <7.
- s/p TXA & cauterization for epistaxis. No signs of active bleeding on exam, monitoring hgb as above.
- Abd ultrasound showing Hepatic fatty infiltration; c/w IV protonix per GI.
- nasal packing can remain until tomorrow
#Hyponatremia - Up to 132 this AM. Will c/w gentle hydration at 60cc/hr NS.
#Elevated Glucose - initiated LDISS for glucose management
#Transaminitis, likely alcoholic fatty liver, possible compounding shock liver - Elevated AST/ALT on admission 2:1. history of alcohol use and obesity, possible chronic elevation from fatty liver vs. shock liver. Will continue to monitor. Trending
down.
#HFrEF - Lopressor 25q6 per cardiology. Echo showing EF of 30-35% with global hypokinesis w/ small pericardial effusion. Continue w/ gentle diuresis
#Lactic Acidemia (resolved) - was elevated immediately post cardiac arrest, has come back down to normal. Blood gas showed metabolic acidosis without respiratory compensation; now normal pH.
#Elevated troponins (resolved)- peaked, likely secondary to cardiac arrest.
#Asthma - per mother at bedside patient has been using his inhaler more frequently for night time shortness of breath. 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 sleep apnea vs. worsening Asthma, however history uncertain. Will continue to observe.
patient currently intubated, will reassess when medically stable.
#Bipolar Disorder - patient was on Lexapro but stopped on his own due to weight gain (obtained from mother at bedside). Presently patient is sedated, can consider psych consult in the future depending on patient status.
Diet - NPO
DVT Ppx - SCDs
GI Ppx - Protonix 40 BID IV
Code Status - Full Code
Anticipated Discharge: > 48 hours
Subjective/Interval History
-
Attempted weaning down on sedation overnight by twenty one dealer team, however patient was still very tense and not responsive. Had to increase sedation again. This morning patient is able to open his eyes when talked to but is unable to follow more
complex commands like squeezing fingers. He is not tracking.
Objective Data
-
Labs:
Laboratory Results
03/26/24 03/26/24
03:45 04:43
WBC 4.5 L
Hgb 7.2 L
Hct 22.5 L
Plt Count 105 L
HCO3 26.9
Sodium 132 L
Potassium 3.4 L
Chloride 100
Carbon Dioxide 27
BUN 21 H
Creatinine 0.9
Glucose 86
Calcium 7.5 L
Total Bilirubin 1.4 H
AST 94 H
ALT 56 H
Alkaline Phosphatase 44
Vital Signs:
Vital Signs
Temp Pulse Resp BP Pulse Ox
99.9 F 97 20 98/64 97
03/26/24 01:34 03/26/24 05:00 03/26/24 05:00 03/26/24 05:00 03/26/24 05:00
I&O
03/25/24 03/26/24 03/27/24
06:59 06:59 06:59
Intake Total 1155.2 / 1250.2 2292.0 / 2292.0
Output Total 5600 / 5650 2920 / 2920
Balance -4444.8 / -4399.8 -628.0 / -628.0
Review of Systems
-
Unable to obtain full review of systems at this time due to: Patient Intubation
History Source: Patient
Physical Exam
-
General: Well Developed, Well Nourished, Intubated, Appears Chronically Ill and Morbidly Obese
HEENT: Normocephalic, Atraumatic, Moist Mucous Membranes, Reynolds Conjunctivae and Other (Intubated)
Respiratory: Clear to Auscultation; Negative Wheezes, Rales or Rhonchi
Cardiac: Regular Rhythm and S1/S2; Negative Murmur or Rub
Breast: N/A
GI: Soft, Nontender, Normal Bowel Sounds, Distended and Other (Feeding tube)
Genito-urinary: Clear Urine and Muniz
Musculoskeletal: No Clubbing, No Cyanosis and No Edema
Skin: Warm and Dry
Neuro: Negative Awake, Alert or Oriented
--- NOTE | 2024-03-26 07:43 | W.PN.NEURO.1 ---
Today's Communication / Plan
-
Replaced brivaracetam with phenobarbital as part of alcohol withdrawal protocol to prevent seizures
Recheck EEG if patient fails to have return of normal consciousness despite discontinuance of sedation
Attempt to decrease sedation when possible
Neuro Assessment/Plan
Assessment
Abrupt onset of change in mental status immediately preceding spontaneous cardiac arrest. Patient's event is most likely not epileptiform and instead reactive to relative cardiac dysfunction
Patient was at slightly higher risk for epileptiform event due to prior history of alcohol abuse and hyponatremia
Plan
Replaced brivaracetam with phenobarbital as part of alcohol withdrawal protocol to prevent seizures
Recheck EEG if patient fails to have return of normal consciousness despite discontinuance of sedation
Attempt to decrease sedation when possible
Will follow peripherally
Subjective/Objective
Subjective Data
Date of Service: March 26, 2024
Patient unable to provide own medical history
Objective Data
Vital Signs
Temp Pulse Resp BP Pulse Ox
37.7 C 97 20 98/64 97
03/26/24 01:34 03/26/24 05:00 03/26/24 05:00 03/26/24 05:00 03/26/24 05:00
Lab Results
03/26/24 03:45
03/26/24 03:45
PT 15.9 Sec (11.4-14.6) H 03/25/24 04:16
INR 1.24 03/25/24 04:16
APTT 26.3 Sec (23.4-35.0) 03/24/24 03:19
Sodium 132 mmol/L (135-145) L 03/26/24 03:45
Potassium 3.4 mmol/L (3.5-5.1) L 03/26/24 03:45
BUN 21 mg/dl (9-20) H 03/26/24 03:45
Glucose 86 mg/dl (70-99) 03/26/24 03:45
Calcium 7.5 mg/dl (8.4-10.2) L 03/26/24 03:45
Phosphorus 4.1 mg/dl (2.5-4.5) 03/26/24 03:45
Eqj-V-Gwrwayhdmeg Pept 742 pg/ml 03/26/24 03:45
Ur Buprenorphine Negative (Negative) 03/24/24 10:18
Patient Allergies
pollen extracts Allergy (Verified 03/23/24 18:20)
seasonal allergy/Nasal congestion
Review of Systems
-
Unable to obtain full review of systems at this time due to: Patient Intubation and Lethargy
History Source: Patient
All other systems: Reviewed and negative
Physical Exam
-
General: No Apparent Distress, Intubated and Appears Stated Age
Eyes: Round OU and Ruch Conjunctivae
HEENT: Anicteric and Moist Mucous Membranes
Neck: Full Range of Motion
Respiratory: No Dyspnea
Cardiac: No JVD
GI: Non-distended
Skin: Unremarkable
Extremities: No Clubbing, No Cyanosis and No Edema
Psych: Unable to Assess
Extended Neurological Exam
Mood & Affect: Unable to Assess
Attention Span & Concentration: Unresponsive to Verbal Stimuli, Unresponsive to Physical Stimuli and Other (Sitting up spontaneously for > 2 sec); Negative Awake, Alert or Interactive
Memory: Unable to Assess
Involuntary Movement: None
Speech: Unable to Assess
Cranial Nerve II: Left Eye: Pupillary Reactivity Unremarkable, Pupillary Size Unremarkable and Unable to Assess Visual Lopez
Cranial Nerve II: Right Eye: Pupillary Reactivity Unremarkable, Pupillary Size Unremarkable and Unable to Assess Visual Lopez
Cranial Nerves III, IV, : Extraocular Movement: Unable to Assess
Cranial Nerve V: Facial Sensation: Unable to Assess
Cranial Nerve VII: Facial Symmetry: Normal Facial Symmetry and Other (Rapid eye closure after passive eye opening)
Cranial Nerves IX, X: Palate Movement: Unable to Assess
Cranial Nerve XI: Shoulder Shrug: Unable to Assess
Cranial Nerve XII: Tongue Protusion: Unable to Assess
Muscle Strength, Overall: Spontaneously Moves (all ext)
Muscle Bulk & Tone: Bulk Unremarkable and Tone Unremarkable
Pronator Drift: Unable to Assess
Cold Sensation: Unable to Assess
Vibration Sensation: Unable to Assess
Touch Sensation: Negative Withdrawal to Pain
Coordination: Unable to Assess
Gait & Station: Unable to Assess
Data Reviewed
-
Labs: Report Reviewed
Reviewed with: Nurse and Nurse Practioner
Old Records: Summarized
Past History
Past History
ED Past Medical History: HTN, Psychiatric and Other (Substance abuse)
ED Past Surgical History: None
Social History
Tobacco: Non-smoker
Alcohol: Occasional
Drug: Marijuana, Narcotics, IVDA and Other
Personal: Single
Living: with family
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
Family History
Family History: Other (Noncontributory)
Medications
-
Medications:
Generic Name Dose Route Start Last Admin
Trade Name Freq PRN Reason Stop Dose Admin
Albuterol 2 puff 03/23/24 22:54
Albuterol Hfa [90 Mcg/Dose] Inhaler INH
R Q8HPRN PRN
sob
Protocol
Albuterol Sulfate 2.5 mg 03/23/24 22:54 03/24/24 05:01
Albuterol Nebs 2.5 Mg/3 Ml Ampul INH 2.5 mg
R Q4HPRN PRN Administration
shortness of breath or wheezing
Protocol
Albuterol/Ipratropium 3 ml 03/24/24 20:00 03/25/24 20:16
Ipratropium 0.5/Albuterol 3 Mg (3 Ml Ampul) INH 3 ml
R QID LAITH Administration
Protocol
Fentanyl Citrate 50 mcg 03/24/24 11:10 03/26/24 06:31
Fentanyl (50 Mcg/Ml) 100 Mcg/2 Ml Ampul IV 04/07/24 11:09 50 mcg
[id number] PRN Administration
see protocol
Protocol
Fluticasone Propionate 2 puff 03/25/24 08:00 03/25/24 20:17
Fluticasone 220 Mcg Inhaler INH 04/22/24 07:59 2 puff
R BID LAITH Administration
Protocol
Folic Acid 1 mg 03/24/24 08:00 03/25/24 08:00
Folic Acid 1 Mg Tablet PO 04/21/24 07:59 1 mg
DAILY LAITH Administration
Folic Acid 1 mg/ Sodium 50.2 mls @ 200.8 mls/hr 03/24/24 02:08
Chloride IV 04/21/24 02:07
DAILYPRN PRN
if NPO
Ampicillin Sodium/Sulbactam 120 mls @ 240 mls/hr 03/24/24 10:00 03/26/24 04:28
Sodium 3 gm/ Sodium Chloride IV 03/31/24 04:29 120 mls
Q6H LAITH Administration
Fentanyl Citrate 1,000 mcg in 100 mls @ 0 mls/hr 03/24/24 11:15 03/26/24 01:55
Sublimaze IV 100 mls
PER PROTOCOL LAITH Administration
Protocol
Per Protocol
Propofol 1,000,000 mcg in 100 mls @ 0 mls/hr 03/24/24 11:15 03/26/24 04:58
Diprivan IV 100 mls
PER PROTOCOL LAITH Administration
Protocol
Per Protocol
Potassium Chloride 40 meq/ 270 mls @ 67.5 mls/hr 03/26/24 04:46 03/26/24 05:16
Sodium Chloride IV 03/26/24 08:45 270 mls
NOW STA Administration
Insulin Aspart 0 units 03/24/24 18:00 03/26/24 04:54
Insulin Aspart Low Resistance 300 Units/3 Ml Pen.Injctr SC 04/21/24 17:59 Not Given
Q6 LAITH
Protocol
Lorazepam 2 mg 03/25/24 20:33 03/26/24 05:14
Lorazepam 2 Mg/Ml Vial IV 04/22/24 11:31 2 mg
Q4HPRN PRN Administration
Agitation
Metoprolol Tartrate 25 mg 03/24/24 12:00 03/26/24 04:55
Metoprolol 25 Mg Regular Release Tablet TUBE 04/21/24 11:59 25 mg
Q6 LAITH Administration
Pantoprazole Sodium 40 mg 03/24/24 08:00 03/25/24 20:50
Pantoprazole Sodium 40 Mg/10 Ml Vial IV 04/21/24 07:59 40 mg
BID LAITH Administration
Phenobarbital Sodium 64.8 mg 03/27/24 08:00
Phenobarbital 32.4 Mg Tablet PO 03/28/24 22:01
TID LAITH
Phenobarbital Sodium 32.4 mg 03/29/24 08:00
Phenobarbital 32.4 Mg Tablet PO 03/30/24 22:01
TID LAITH
Phenobarbital Sodium 97.5 mg 03/25/24 08:00 03/25/24 20:50
Phenobarbital (65 Mg/Ml) 1 Ml Vial IV 03/26/24 22:01 97.5 mg
TID LAITH Administration
Polyethylene Glycol 17 grams 03/25/24 08:00 03/25/24 08:00
Polyethylene Glycol Powder 17 Grams Packet TUBE 04/22/24 07:59 17 grams
DAILY LAITH Administration
Sodium Chloride 0 flush 03/23/24 22:00 03/23/24 21:18
Sodium Chloride 0.9% (Flush) Syringe IV 04/20/24 21:59 1 flush
PER PROTOCOL LAITH Administration
Sodium Chloride 10 ml 03/24/24 08:00 03/25/24 20:50
Sodium Chloride 0.9% (Preservative Free) 10 Ml Vial IV 04/21/24 07:59 10 ml
BID LAITH Administration
Sodium Chloride 0 ml 03/25/24 21:00
Sodium Chloride 0.9% (Preservative Free) 10 Ml Vial IV 04/22/24 20:59
PRN PRN
IV Lorazepam dilution
Protocol
Thiamine HCl 200 mg 03/24/24 08:00 03/25/24 20:50
Thiamine (100 Mg/Ml) 2 Ml Vial IV 03/26/24 20:01 200 mg
Q12 LAITH Administration
Thiamine HCl 100 mg 03/27/24 08:00
Thiamine 100 Mg Tablet PO 04/24/24 07:59
BID LAITH
[2024-03-26] MEDS: DUONEB 3 ML INH ×4 (07:56→21:18)
[2024-03-26] MEDS: FLOVENT 220 MCG INHALER 2 PUFF INH ×2 (07:56→21:18)
--- NOTE | 2024-03-26 08:27 | W.PN.INTV ---
Today's Communication / Plan
Recommendations
Mechanical ventilation with daily SAT/SBT if clinically appropriate
Slowly wean off propofol, while monitoring for seizure-like activity given alcohol abuse
Start Seroquel and Precedex to help wean off propofol more easily
Come down on fentanyl gtt as well
Continue with phenobarbital
EEG performed on 03/25 showed diffuse cortical dysfunction without focal abnormality or seizures
Antibiotics x 5-7 days total; follow up infectious workup
DuoNebs + Flovent
Thiamine/folic acid
Stress ulcer prophylaxis
SCDs; hold Eliquis for now
Advance ETT by 3-4 cm
Continue ICU level of care for this critically ill patient
Assessment
-
Assessment: 38-year-old male non-smoker with a past medical history of persistent A-fib on Eliquis, bipolar affective disorder, asthma, and hypertension who presented with vomiting blood 1 day prior to arrival with dark stools as well as a
nosebleed. He has been having fatigue, shortness of breath and confusion with chest pain. He is normally on Eliquis but he has been holding it for few days due to his bleeding. He does follow-up with cardiology with last visit on 02/17/[address] Phillips. He has a history of nonischemic cardiomyopathy with prior EF of 20-25% with global hypokinesis from echo in December 2023. He was discussing getting an ablation for his A-fib. He has a history of cardioversion x 2 with failure to
restore into sinus rhythm. Also it has been difficult to choose an antiarrhythmic drug in the setting of his lithium drug use with risk of QT prolongation. In the ER he told the doctor he has been having a bloody nose which started on the day of
ER arrival, and has been vomiting bright red blood with dark tarry stools for 1 week. Last dose of Eliquis was on Friday (03/21/2024). In the ER he was afebrile to 97.1 �F, pulse rate 97, breathing at 20 breaths/minute, BP 129/83 and saturating 98%
on room air. Initial labs showed Hb 8.9, platelet count 115, sodium 123, chloride 87, BUN 33, serum osmolarity 302, and urinalysis negative for signs of UTI. Initial CXR showed suspected small right pleural effusion with possible pneumonia in the
right middle lobe. He was initially admitted to the IMU for a GI bleed with epistaxis. Overnight he was agitated and required Precedex drip so was transferred to the ICU, and developed a cardiac arrest while trying to get up out of bed. He was
labeled DNR however when the ICU [employer] call the family this was reversed, and CPR/ACLS was initiated. He was given an amp of epinephrine and pulse was regained and then he became bradycardic and lost pulse again. CPR resumed and given 2 A of epi and
patient was intubated. ROSC regained. Due to his prearrest seizure-like activity, neurology was called and empiric Keppra was given. TTM was not started given his acute upper GI bleed and epistaxis. He has continued to be managed in the ICU and
golf superintendent services consulted for additional management/recommendations.
Chronic conditions TRIAGE REGISTER NURSE: Asthma, hypertension, bipolar 1 disorder, A-fib
Impression:
#Hemorrhagic shock - shock state now resolved
#In-hospital cardiac arrest with preceding seizure-like activity (withdrawal seizure vs myoclonic jerks)
#Acute blood loss anemia due to reported epistaxis and UGIB with hematemesis
#Acute respiratory failure with hypoxia now on mechanical ventilation
#RUL + bilateral lower lobe pneumonia (confirmed on CT Chest from 03/24/2024)
#Acute thrombocytopenia
#Alcoholism with use of alcohol use drinking vodka daily as well as wine
#Suspected alcohol withdrawal seizure
#History of anxiety
#Metabolic acidosis with increased anion gap + respiratory acidosis - acidosis now resolved
#Lactic acidosis � now resolved
#Hypochloremic, hyponatremia
#Hyperglycemia � now resolved
#Transaminitis with hyperbilirubinemia
#Elevated troponin likely due to cardiac arrest
#Chronic HFrEF with RV dysfunction seen on TTE from 03/24/2024
Plan:
- Initially patient admitted to the ICU and in the middle the night became agitated and tried to get out of bed, then had seizure-like activity, became unresponsive and then cardiac arrested s/p ROSC
- Unable to do hypothermic protocol due to upper GI bleed
- Ensure core temperature-sensing probe remains in place x 48-72 hours to assure fever is avoided
- Minimize sedation to help prognosticate, although continue AEDs as per neurology
- Neurology consulted --> EEG done AM of 03/24 showing very low amplitude with near cerebral signs, likely due to sedation that was administered prior to EEG
- CT head on showed no acute intracranial pathology with acute and chronic sinusitis
- Continue mechanical ventilation with daily SAT/SBT if clinically appropriate
- Titrate FiO2 + PEEP to keep SpO2 >94%
- Maintain plateau pressure <30
- Frequent oropharyngeal + deep ETT suctioning as needed
- Postcardiac arrest CXR showed new opacification in the right upper lobe concerning for aspiration, and CT chest confirmed RUL/bibasilar pneumonia--> continue Unasyn and check respiratory Cx
- Both urine antigens for legionella and Strep PNA both negative
- Given history of asthma with peak to plateau difference was >5 on 03/24/2024 with prolonged expiration, continue scheduled DuoNebs + Flovent BID
- prn nebulized bronchodilators
- Goal RASS 0 to -2 --> start Seroquel in an attempt to wean him off propofol; start precedex as well
- GI consulted; there definitely is concern for an upper GI bleed as he had reported vomiting blood with tarry stools for a week, and his BUN is elevated with normal creatinine (although he was reportedly on steroids prior to admission, but mother
said he was on steroids for an asthma flare 'few weeks ago,' so this would not still cause a rise in his BUN at this current time)
- Maintain large bore IV x2
- PPI 40mg IV BID
- Defer EGD to GI - currently being held off
- Abdominal ultrasound 03/24 shows hepatic fatty infiltration with no signs of cirrhosis
- Ammonia level <9
- Trend H/H and transfuse if needed to keep Hb>7g/dL; keep plt>50k
- Hold antiplatelet/anticoagulants
- Continue thiamine + folic acid
- Continue phenobarbital to prevent any seizure activity from alcohol withdrawal while we wean down on propofol
- This was discussed with neurology and Dr. Davison agrees with this plan
- Continue nasal packing in R-nares
- ENT following
- Unasyn as above while packing is in place to prevent TSS
- Continue trending sNa
- Trend LFTs
- Trend sHCO3 level and trend pH and pCO2 - no need for bicarb drip at this time as he is now alkalemic
- Continue with Lopressor 25mg q6hr with holding parameters (takes Toprol-XL at home)
- Cardiology on board and recommendations appreciated
- Maintain MAP>65
- Replete electrolytes with K>4, Mg>2
- Maintain euglycemia with goal BG 140-180 with ISS q6hr
- DVT ppx: SCDs; stopped his Eliquis TRIAGE REGISTER NURSE due to nosebleeds, plus he was scheduled for an ablation given Hx of A-fib - continue to hold until Hb stable for >48 hrs with no signs of bleeding clinically
Critical care statement: A total of 41 minutes of critical care time was provided for this patient today. This includes management of unstable vital signs, evaluation of the patient at bedside, reviewing the patient's pertinent medical records
including radiographs, microbiology, laboratory evaluations, and discussion with primary team, consultants, pharmacy, nutrition, physical therapy, case management, charge nurse, critical care nursing, and respiratory therapy.
Data:
CXR 03/24/2024:
New mild right upper lobe airspace disease concerning for developing pneumonia.
Possible developing pneumonia in the right costophrenic angle versus atelectasis. Progressed. Mild.
Tiny right pleural effusion. Progressed.
Cardiomegaly. Stable.
CT chest/abdomen/pelvis without contrast 03/24/2024:
Moderate bibasilar consolidation. This may represent atelectasis or pneumonia.
Bilateral lower lobe, lingular and right upper lobe atelectasis versus scarring.
Small pericardial effusion.
Findings suggesting mild volume overload or third spacing.
Minimal diverticulosis.
Subjective Dataa
Subjective Data
Date of Service:
Date of Service: March 26, 2024
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
Subjective:
Pt seen this AM. Remains intubated on AC/CMV 20/550/5/40%, with PIP: 22 cmH2O, VTe 501 and breathing at 20 breaths/min. Sedated on propofol gtt at 25mcg/kg/min and fentanyl at 100mcg/hr. he is following commands this morning. Heart rate 102, BP
105/58 and saturating 96%.
Review of Systems
General: Unobtainable - Sedation
Objective Data
Data Reviewed
Vital Signs / I&O / Oxygen:
Vital Signs
Temp Pulse Resp BP Pulse Ox
99.7 F 91 20 98/64 98
03/26/24 08:00 03/26/24 08:03 03/26/24 08:03 03/26/24 05:00 03/26/24 08:11
Intake and Output
03/25/24 03/26/24 03/27/24
06:59 06:59 06:59
Intake Total 1155.2 / 1250.2 2292.0 / 2292.0
Output Total 5600 / 5650 2920 / 2920
Balance -4444.8 / -4399.8 -628.0 / -628.0
SaO2 [A/C] 95
SaO2 98
Physical Exam
General: Respiratory Distress (negative), Comfortable, Chills (negative) and Sweats (negative)
HEENT: Normocephalic and Anicteric
Cardiovascular: S1-S2, Peripheral Edema (Trace lower extremity edema bilaterally) and Other (Tachycardic)
Respiratory: Wheeze (negative), Crackles (negative), Rhonchi (negative), Non-Labored Respirations and ET Tube (Mechanical breath sounds heard bilaterally)
GI: Soft, Distended (Abdominal obesity), Non Tender and Normal Bowel Sounds
Neurology: Tremors (negative) and Other (Sedated)
Skin: Warm, Dry, Cyanosis (negative), Jaundice (negative) and Rash (negative)
Labs/Micro/Reports
Lab Data
03/26/24 03:45
03/26/24 03:45
Laboratory Results
03/26/24
04:43
pH 7.47 H
pCO2 37
pO2 93
HCO3 26.9
O2 Delivery Level 40%
Microbiology
03/25/24 13:46 Endotracheal Respiratory Culture - Preliminary
Usual Respiratory Michelle
03/25/24 13:46 Endotracheal Gram Stain - Preliminary
03/26/24 03:45 Urine Legionella Urinary Antigen - Final
Negative for Legionella pneumophila Serogroup 1 antigen.
A negative result does not rule out the possiblity of
Legionella infection due to other serogroups or species of
Legionella. Clinical correlation is recommended.
03/26/24 03:45 Urine Streptococcus pneumoniae Antigen (M - Final
Negative for Streptococcus pneumoniae antigen.
A negative result does not exclude infection with
Streptococcus pneumoniae. Clinical correlation is
recommended.
03/24/24 17:54 Urine Legionella Urinary Antigen - Final
Negative for Legionella pneumophila Serogroup 1 antigen.
A negative result does not rule out the possiblity of
Legionella infection due to other serogroups or species of
Legionella. Clinical correlation is recommended.
03/24/24 17:54 Urine Streptococcus pneumoniae Antigen (M - Final
Negative for Streptococcus pneumoniae antigen.
A negative result does not exclude infection with
Streptococcus pneumoniae. Clinical correlation is
recommended.
[2024-03-26] MEDS: NSS (PRESERVATIVE FREE) 10 ML IV ×2 (09:06→19:31)
[2024-03-26] MEDS: PROTONIX IV 40 MG IV ×2 (09:06→19:31)
[2024-03-26] MEDS: THIAMINE INJECTION 200 MG IV ×2 (09:06→19:31)
[2024-03-26] MEDS: MIRALAX 17 GRAMS TUBE (09:07)
[2024-03-26] MEDS: FOLVITE 1 MG PO (09:07)
[2024-03-26] MEDS: PHENOBARBITAL 97.5 MG IV ×3 (09:08→21:09)
--- NOTE | 2024-03-26 09:15 | PTCARENOTE ---
Additional assessment- Nasal packing remains intact in the R nare.
--- NOTE | 2024-03-26 09:20 | PTCARENOTE ---
Rec'd pt at 0800 resting in bed sedated on Diprivan at 25 mcg and Fentanyl at 100 mcg. Rec'd pt initally restful and calm with ventilator. Did this am open his eyes to his name being called on several occasions but no focus or tracking. CHANTEL
sluggish at 2mm. JAY but not to command and when he moves them he is tense and restless. Once stimulated pt startsgetting agitated, biting on ETT and breaths become more forceful and dysnchronus with the vent. - pt keeps high pressuring. Medicated
at 0905 with Fentanyl 50 mcg for vent dysynchony. which eventually calmed him down. RASS will go to a +2 with stimulation. Respirs when calm are synchronous with the vent. #8 ett at the 25 cm loli on retaped on the R side of the mouth along with
oral bite stick to biting down on ETT. Suctioned for scant amt of tannish/white secretions via ett and dk bloody oral secretions. Intially this am did not seem to have a cough or gag but currently did cough weakly with suctioning.Vent settings AC
20, tv 500, peep 5. Mostly stays controlled at 20 on the vent unless stimulated then at times RR can up up into the 30's shallow and tachypnic. Adds no additional volume. PP 23-26. Sats on Fio2 40% are 90-96% depending on stimulation. BS are sl
coarse on the R ant and post sl coarse with exp wheezing. Monitor AFib- rates 90-140's depending on stimulation. + pulses. +1 gen anasarca and +2 LE edema. VS as documented. Abd is obese and firm with + BS. Orogastsric Hidalgo with Jevity 1.5 at 20
ml/hr with 25 ml/hr water flush. 40 ml residual aspirated and reinstilled. Thermistor murguia in place for aj urine. Capped ints intact on the L. R arm DL PIC with Fentanyl and Propophol infusing. 40 meq KCL rider finishing up. Turned and
repositioned. Skin care given. Bilateral soft wrist restraints on for pt safety as he does reach his hand up. Pts mother at the bedside and updated on plan of care. Dr. Davison in to see pt and updated.
--- NOTE | 2024-03-26 10:30 | PTCARENOTE ---
Resting and tolerating vent- sats 95-96%. If left alone pt is calm. Mother in room with pt.
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
[2024-03-26] MEDS: LASIX 40 MG IV (12:12)
[2024-03-26] MEDS: KCL ELIXIR 40 MEQ TUBE (12:12)
[2024-03-26] MEDS: MAGNESIUM SULFATE 100 IV (12:13)
--- NOTE | 2024-03-26 12:15 | PTCARENOTE ---
KCL 40 meq Elixer given via Feeding tube.
[2024-03-26] MEDS: PRECEDEX 100 IV ×3 (12:20→22:31)
[2024-03-26] MEDS: SEROQUEL 50 MG PO (12:25)
--- NOTE | 2024-03-26 12:40 | PTCARENOTE ---
Overalll assessment is unchanged. Continues to open eyes to verbal and tactile stimuli but does not focus or track or follow commands. Again becomes very restless and tense and tends to bite on ETT or become dysychonous with the vent and keeps high
pressuring as if he is forcing breaths. Suctioned for a small amt of tannish secretions via ett and bloody oral secretions. ETT retaped 25 cm loli center of the mouth. Bite stick needs to stay in as otherwise he cannot ventilate. VS as documented.
At rest HR is 90's but will easily go up into the 120-140's with agitation. Propophol remains at 25 mcg and Fent at 100 mcg. Did need to rebolus pt with 50 mcg Fentanyl at 1225 for vent dysnchrony. Precedex added at 1220 at 0.4 mcg. Lasix 40 mg IV
given at 1212 and Mag 1 gm rider hung via PICC at 1213. Tube feeds increased currently to 40 ml/hr with 25 ml/hr flush. 30 ml residual. Repositioned. Skin and mouth care given. Soft wrist restraints remain in place.
[2024-03-26 12:57] LABS: Glucose - Point of Care 95 mg/dl (70-99)
--- NOTE | 2024-03-26 14:30 | PTCARENOTE ---
Pt remains on Precedex at 0.4 mcg. Weaning IV Propophol- currently at 15 mcg since 1400. Opens eyes to command but does not follow any other commands. No other changes. Diuresing from Lasix.
--- NOTE | 2024-03-26 14:48 | CM ---
M following re: discharge planning.
Reviewed pt's chart, met with pt.
Per Rounds meeting, pt remains intubated, continue supportive care.
D/C plan: uncertain at this time and will depend on pt's progress.
CM will follow with discharge plan updates as hospitalization progresses
--- NOTE | 2024-03-26 16:30 | PTCARENOTE ---
Pt has remained mostly calm this afternoon. Currently Diprivan at 5 mcg. Will continue to open eyes to command. Does not follow commands to grasp hands or move feet but will move extrem on his own. Did however on 2 occasions seem to nod yes when
asked if he could hear me. Was calm during care. Precedex at 0.4 mcg. Suctioned for small amt of thick whitish/norris secretions. VS as documented. Tolerating tube feeds. 180 residual. Turned and repositioned. Skin and mouth care given. Bilat soft
wrist restraints remain intact. Pts mom at the bedside. Updated.
--- NOTE | 2024-03-26 17:30 | PTCARENOTE ---
ETT ridiing between the 23-25 cm loli- Per Dr. Gonzalez wanted ETT advanced 3 cm- advanced to the 26 cm loli. Will get CXRay. Agitated with repositioning the tube then calmed down.
[2024-03-26 18:02] LABS: Glucose - Point of Care 113 mg/dl (70-99)
--- NOTE | 2024-03-26 19:17 | PTCARENOTE ---
CXRay taken. Propophol off since 1800 and Precedex at 0.6 mcg. No other changes
[2024-03-26] MEDS: SEROQUEL 50 MG TUBE (19:31)
--- NOTE | 2024-03-26 20:00 | PTCARENOTE ---
patient received in bed, intubated and sedated on Precedex and Fentanyl gtts. Eyes open. Did track when name was called. Pupils 2 mm reactive, weak gag. Bilateral wrist restraints maintained. afib on monitor, low grade temp. palpable pulses, +
anasarca. KNee high SCDS maintained. #8 ETT at center, vent settings of A/C 20 TV 500 FIO2 40% Peep 5, lungs coarse. oral secretions bloody. OG tube with Jevity 1.5 infusing at 40 ml/hr with25 ml/hr water flush. Abdomen obese with hypoactive
bowel sounds. Thermister murguia draining aj urine. bruising on abdomen. RDL PICC with Precedex and Fentanyl gtts infusing. #22 g in left hand flushed and patent. Family at bedside
[2024-03-26] MEDS: TYLENOL ORAL SOLUTION 650 MG TUBE (21:47)
--- NOTE | 2024-03-26 22:38 | PTCARENOTE ---
Patient agitated, high pressuring on the vent, low tidal volumes and decrease in pulse ox to 78%, precedex gtt increased and fentanyl bolus and prn ativan dose given.
[2024-03-27] VITALS (24 sets, daily range): BP systolic 88–132; BP diastolic 63–94; BMI 39.7
--- NOTE | 2024-03-27 | PTCARENOTE ---
Patient reassessed, despite increase in precedex gtt and fentanyl bolus doses, patient remains agitated and dysnchrony with the vent. Propofol gtt restarted for RASS. Tube feed increased to goal. Turned and repositioned. No other changes in
assessment
[2024-03-27 00:05] LABS: Glucose - Point of Care 107 mg/dl (70-99)
[2024-03-27] MEDS: LOPRESSOR 25 MG TUBE ×5 (00:42→23:17)
[2024-03-27] MEDS: DIPRIVAN 100 IV ×2 (01:44→08:26)
[2024-03-27] MEDS: PRECEDEX 100 IV ×8 (02:20→23:16)
[2024-03-27] MEDS: UNASYN IV (04:06)
[2024-03-27] MEDS: SUBLIMAZE 50 MCG IV ×4 (04:06→19:41)
[2024-03-27] MEDS: TYLENOL ORAL SOLUTION 650 MG TUBE ×2 (04:30→22:12)
[2024-03-27 05:28] LABS: B.E. 2.2 mmol/L; HCO3 26.5 mmol/L (21-28); O2 Saturation % 99.1 % (94-98); PCO2 39 mmHg (35-48); PO2 92 mmHg (83-108); pH 7.44 (7.35-7.45)
[2024-03-27 06:00] LABS: NT-proBNP 1290 pg/ml
[2024-03-27 06:01] LABS: Hematocrit 23.6 % (39.0-52.0); Hemoglobin 7.7 g/dL (13.0-18.0); Mean Corp Hgb Conc. 32.6 g/dL (33.0-37.0); Mean Corpuscular Hgb 30.1 pg (27.0-31.0); Mean Corpuscular Volume 92.2 fL (80.0-94.0); Mean Platelet Volume 10.4 fL (7.4-10.4); Platelet Count 119 10^3/uL (130-400); Red Blood Cell Count 2.56 10^6/uL (4.70-6.10); Red Cell Dist. Width 15.6 % (11.5-14.5); White Blood Cell Count 4.9 10^3/uL (4.8-10.8)
[2024-03-27 06:04] LABS: ALT (SGPT) 50 U/L (0-50); AST (SGOT) 80 U/L (17-59); Alkaline Phosphatase 57 U/L (38-126); Blood Urea Nitrogen 18 mg/dl (9-20); Calcium 7.2 mg/dl (8.4-10.2); Carbon Dioxide 27 mmol/L (22-30); Chloride 101 mmol/L (98-107); Estimated Creatinine Clearance > 125 ml/min; Glucose 117 mg/dl (70-99); Phosphorus 3.9 mg/dl (2.5-4.5); Potassium 3.8 mmol/L (3.5-5.1); Sodium 136 mmol/L (135-145); Total Bilirubin 1.6 mg/dl (0.2-1.3); Total Protein 5.2 g/dl (6.3-8.2); Triglycerides 137 mg/dl (10-149); eGFR > 60.00
--- NOTE | 2024-03-27 06:44 | PTCARENOTE ---
Patient reassessed, CHG bath given, labs sent. Still requiring additional medication for agitation.
--- NOTE | 2024-03-27 07:49 | W.PN.INTV ---
Today's Communication / Plan
Recommendations
Mechanical ventilation with daily SAT/SBT if clinically appropriate
Slowly wean off propofol, while monitoring for seizure-like activity given alcohol abuse
Raise Seroquel dose and continue Precedex to help wean off propofol more easily
Come down on fentanyl gtt as well
Continue with phenobarbital
EEG performed on 03/25 showed diffuse cortical dysfunction without focal abnormality or seizures
Antibiotics x 5-7 days total; follow up infectious workup
DuoNebs + Flovent
Thiamine/folic acid
Stress ulcer prophylaxis - start LMWH given stable Hb and BUN now normal
SCDs; continue to hold Eliquis for now
Continue ICU level of care for this critically ill patient
Assessment
-
Assessment: 38-year-old male non-smoker with a past medical history of persistent A-fib on Eliquis, bipolar affective disorder, asthma, and hypertension who presented with vomiting blood 1 day prior to arrival with dark stools as well as a
nosebleed. He has been having fatigue, shortness of breath and confusion with chest pain. He is normally on Eliquis but he has been holding it for few days due to his bleeding. He does follow-up with cardiology with last visit on 02/17/[address] Phillips[address] He has a history of nonischemic cardiomyopathy with prior EF of 20-25% with global hypokinesis from echo in December 2023. He was discussing getting an ablation for his A-fib. He has a history of cardioversion x 2 with failure to
restore into sinus rhythm. Also it has been difficult to choose an antiarrhythmic drug in the setting of his lithium drug use with risk of QT prolongation. In the ER he told the doctor he has been having a bloody nose which started on the day of
ER arrival, and has been vomiting bright red blood with dark tarry stools for 1 week. Last dose of Eliquis was on Friday (03/21/2024). In the ER he was afebrile to 97.1 �F, pulse rate 97, breathing at 20 breaths/minute, BP 129/83 and saturating 98%
on room air. Initial labs showed Hb 8.9, platelet count 115, sodium 123, chloride 87, BUN 33, serum osmolarity 302, and urinalysis negative for signs of UTI. Initial CXR showed suspected small right pleural effusion with possible pneumonia in the
right middle lobe. He was initially admitted to the IMU for a GI bleed with epistaxis. Overnight he was agitated and required Precedex drip so was transferred to the ICU, and developed a cardiac arrest while trying to get up out of bed. He was
labeled DNR however when the ICU CLOTH DESIZING RANGE TENDER call the family this was reversed, and CPR/ACLS was initiated. He was given an amp of epinephrine and pulse was regained and then he became bradycardic and lost pulse again. CPR resumed and given 2 A of epi and
patient was intubated. ROSC regained. Due to his prearrest seizure-like activity, neurology was called and empiric Keppra was given. TTM was not started given his acute upper GI bleed and epistaxis. He has continued to be managed in the ICU and
mems process engineer services consulted for additional management/recommendations.
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
Impression:
#Hemorrhagic shock - shock state now resolved
#In-hospital cardiac arrest with preceding seizure-like activity (withdrawal seizure vs myoclonic jerks)
#Acute blood loss anemia due to reported epistaxis and UGIB with hematemesis
#Acute respiratory failure with hypoxia now on mechanical ventilation (intubated 03/24/2024)
#RUL + bilateral lower lobe pneumonia (confirmed on CT Chest from 03/24/2024)
#Acute thrombocytopenia
#Alcoholism with use of alcohol use drinking vodka daily as well as wine
#Suspected alcohol withdrawal seizure
#History of anxiety
#Metabolic acidosis with increased anion gap + respiratory acidosis - acidosis now resolved
#Lactic acidosis � now resolved
#Hypochloremic, hyponatremia
#Hyperglycemia � now resolved
#Transaminitis with hyperbilirubinemia
#Elevated troponin likely due to cardiac arrest
#Chronic HFrEF with RV dysfunction seen on TTE from 03/24/2024
Plan:
- Initially patient admitted to the ICU and in the middle the night on 03/24/2024 and became agitated and tried to get out of bed, then had seizure-like activity, became unresponsive and then cardiac arrested s/p ROSC
- Unable to do hypothermic protocol due to suspected upper GI bleed
- Ensure core temperature-sensing probe remains in place x 48-72 hours to assure fever is avoided
- Minimize sedation to help prognosticate, although continue AEDs as per neurology - currently on luminal and not on keppra or another AED
- Neurology consulted --> EEG done AM of 03/24 showing very low amplitude with near cerebral signs, likely due to sedation that was administered prior to EEG
- EEG repeated on 03/25/2024 showing diffuse bihemispheric slowing with no seizures
- CT head on showed no acute intracranial pathology with acute and chronic sinusitis
- Continue mechanical ventilation with daily SAT/SBT if clinically appropriate
- Titrate FiO2 + PEEP to keep SpO2 >94%
- Maintain plateau pressure <30
- Frequent oropharyngeal + deep ETT suctioning as needed
- Continue IV lasix with 40mg daily and trend I/O and trend UOP
- Postcardiac arrest CXR showed new opacification in the right upper lobe concerning for aspiration, and CT chest confirmed RUL/bibasilar pneumonia--> continue Abx --> unasyn changed to Zosyn today (03/27) due to fevers overnight into this AM;
blood CX checked today X2; respiratory Cx from 03/25 showed usual michelle
- Both urine antigens for legionella and Strep PNA both negative
- Given history of asthma with peak to plateau difference was >5 on 03/24/2024 with prolonged expiration, continue scheduled DuoNebs + Flovent BID
- prn nebulized bronchodilators
- Goal RASS 0 to -2 --> increase Seroquel in an attempt to wean him off propofol; continue precedex as well
- GI consulted; there definitely is concern for an upper GI bleed as he had reported vomiting blood with tarry stools for a week, and his BUN is elevated with normal creatinine (although he was reportedly on steroids prior to admission, but mother
said he was on steroids for an asthma flare 'few weeks ago,' so this would not still cause a rise in his BUN at this current time)
- Maintain large bore IV x2
- PPI 40mg IV BID
- Defer EGD to GI - currently being held off
- His BUN is now normal at 18 as of 03/27/2024, and H&H has also been stable between 7.2�8 since 03/24/2024; he was TRX 1 U PRBC on 03/23/2024
- Abdominal ultrasound 03/24 shows hepatic fatty infiltration with no signs of cirrhosis
- Ammonia level <9
- Trend H/H and transfuse if needed to keep Hb>7g/dL; keep plt>50k
- Hold antiplatelet/anticoagulants
- Continue thiamine + folic acid
- Continue phenobarbital to prevent any seizure activity from alcohol withdrawal while we wean down on propofol
- This was discussed with neurology and Dr. Davison agrees with this plan
- Continue nasal packing in R-nares
- ENT following
- Unasyn as above while packing is in place to prevent TSS
- Continue trending sNa
- Trend LFTs
- Trend sHCO3 level and trend pH and pCO2 - no need for bicarb drip at this time as he is now alkalemic
- Continue with Lopressor 25mg q6hr with holding parameters (takes Toprol-XL at home)
- Cardiology on board and recommendations appreciated
- Maintain MAP>65
- Replete electrolytes with K>4, Mg>2
- Maintain euglycemia with goal BG 140-180 with ISS q6hr
- DVT ppx: SCDs and start LMWH today and c/t trend H/H; previously he stopped his Eliquis [employer] OIL[employer] due to nosebleeds, plus he was scheduled for an ablation given Hx of A-fib
Critical care statement: A total of 37 minutes of critical care time was provided for this patient today. This includes management of unstable vital signs, evaluation of the patient at bedside, reviewing the patient's pertinent medical records
including radiographs, microbiology, laboratory evaluations, and discussion with primary team, consultants, pharmacy, nutrition, physical therapy, case management, charge nurse, critical care nursing, and respiratory therapy.
Data:
CXR 03/24/2024:
New mild right upper lobe airspace disease concerning for developing pneumonia.
Possible developing pneumonia in the right costophrenic angle versus atelectasis. Progressed. Mild.
Tiny right pleural effusion. Progressed.
Cardiomegaly. Stable.
CXR 03/27/2024:
1. Moderate cardiomegaly. Mild pulmonary edema.
2. Suspected small bilateral pleural effusions. Left lower lobe airspace disease may also be present.
CT chest/abdomen/pelvis without contrast 03/24/2024:
Moderate bibasilar consolidation. This may represent atelectasis or pneumonia.
Bilateral lower lobe, lingular and right upper lobe atelectasis versus scarring.
Small pericardial effusion.
Findings suggesting mild volume overload or third spacing.
Minimal diverticulosis.
Subjective Dataa
Subjective Data
Date of Service:
Date of Service: March 27, 2024
Chief Complaint: Clean Room Technician Follow Up
Subjective:
Patient seen and evaluated today at bedside. Patient's sister, Vicky, and friend, lives, both at bedside. Patient's end-tidal CO2 was currently 33, heart rate 79, and BP 120/91. Currently on tube feeds at 30 cc/hour. Intubated on AC/CMV at
20/500/40%/5 with PIP: 28 cmH2O, VTe: 455 cc and breathing at 20 breaths/min. Currently on fentanyl drip at 50mcg/hr and Precedex at 1mcg/kg/hr. He has periods where he wakes up and tries to sit up and reach for the ETT, and is not redirectable.
Review of Systems
General: Unobtainable - Sedation
Objective Data
Data Reviewed
Vital Signs / I&O / Oxygen:
Vital Signs
Temp Pulse Resp BP Pulse Ox
100.8 F H 95 20 100/79 97
03/27/24 07:00 03/27/24 04:30 03/27/24 04:00 03/27/24 04:00 03/27/24 04:40
Intake and Output
03/26/24 03/27/24 03/28/24
06:59 06:59 06:59
Intake Total 2292.0 / 2435.4 3264.8 / 3264.8
Output Total 2920 / 2920 1974
Balance -628.0 / -484.6 1289.8 / 1289.8
SaO2 [A/C] 98
SaO2 97
Physical Exam
General: Respiratory Distress (negative), Comfortable, Chills (negative) and Sweats (negative)
HEENT: Normocephalic, Anicteric and Other (Thick neck)
Cardiovascular: S1-S2 and Peripheral Edema (Trace lower extremity edema bilaterally)
Respiratory: Wheeze (negative), Crackles (negative), Rhonchi (negative), Non-Labored Respirations and ET Tube (Mechanical breath sounds heard bilaterally)
GI: Soft, Distended (Abdominal obesity), Non Tender and Normal Bowel Sounds
Neurology: Tremors (negative) and Other (Sedated)
Skin: Warm, Dry, Cyanosis (negative), Jaundice (negative) and Rash (negative)
Labs/Micro/Reports
Lab Data
03/27/24 04:39
03/27/24 04:39
Laboratory Results
03/27/24
05:17
pH 7.44
pCO2 39
pO2 92
HCO3 26.5
O2 Delivery Level
Microbiology
03/25/24 13:46 Endotracheal Respiratory Culture - Preliminary
Usual Respiratory Michelle
03/25/24 13:46 Endotracheal Gram Stain - Preliminary
03/26/24 03:45 Urine Legionella Urinary Antigen - Final
Negative for Legionella pneumophila Serogroup 1 antigen.
A negative result does not rule out the possiblity of
Legionella infection due to other serogroups or species of
Legionella. Clinical correlation is recommended.
03/26/24 03:45 Urine Streptococcus pneumoniae Antigen (M - Final
Negative for Streptococcus pneumoniae antigen.
A negative result does not exclude infection with
Streptococcus pneumoniae. Clinical correlation is
recommended.
03/24/24 17:54 Urine Legionella Urinary Antigen - Final
Negative for Legionella pneumophila Serogroup 1 antigen.
A negative result does not rule out the possiblity of
Legionella infection due to other serogroups or species of
Legionella. Clinical correlation is recommended.
03/24/24 17:54 Urine Streptococcus pneumoniae Antigen (M - Final
Negative for Streptococcus pneumoniae antigen.
A negative result does not exclude infection with
Streptococcus pneumoniae. Clinical correlation is
recommended.
[2024-03-27] MEDS: DUONEB 3 ML INH ×4 (08:06→21:41)
[2024-03-27] MEDS: FLOVENT 220 MCG INHALER 2 PUFF INH ×2 (08:07→21:41)
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
--- NOTE | 2024-03-27 08:46 | W.PN.HOSP.TC ---
Today's Communication/Plan
-
see A/P
Assessment / Plan
Assessment / Plan
A/P:
# Severe alcohol use disorder w/ possible withdrawal seizure
Currently intubated with sedation
Slowly wean off propofol, started Seroquel and Precedex to help wean off propofol more easily
weaning fentanyl gtt as well by Fireman Helper
Off brivaracetam, Continue with phenobarbital
neuro on board
MSAS protocol when extubated
# Cardiac Arrest s/p CPR
Intubated for airway protection
Vent and sedation per Fireman Helper
CT head no acute intracranial abnormality
EEG not reliable with current sedation, showed diffuse cortical dysfunction without focal abnormality or seizures
# Elevated troponin, likely related to cardiac arrest
# lactic acidosis, resolved
trop peaked at 0.375
Echo noted moderately reduced EF 30-35%. The ventricle is globally hypokinetic. Diastolic function indeterminate.
Metoprolol 25 mg Q6H for rate control of AFib
Eliquis on hold
Card on board
# sepsis
# Likely Aspiration PNA
CXR noted new mild right upper lobe airspace disease. Follow up CXR 03/27: Suspected small bilateral pleural effusions. Left lower lobe airspace disease may also be present.
CT Chest with moderate bibasilar consolidation.
procal 0.48
Change Unasyn to Zosyn
ID CS
# Upper GI Bleed with melena
Holding CERTIFIED PERSONAL CHEF Eliquis
s/p 1u pRBCs transfusion
Follow Hgb, today at 7.7
Continue Protonix IV twice daily
GI on board
# Elevated LFT, likely due to cardiac arrest in setting of alcohol abuse/fatty liver, improving
Abd US: hepatic fatty infiltration
CT AP largely unrevealing
follow LFT
# Concurrent Epistaxis
s/p TXA & cauterization by ENT
No signs of active bleeding on exam
Cont packing, ENT following
# Hyponatremia likely due to alcohol abuse, resolved
sodium level 123 on admission, today at 136
cont to follow
# HFrEF
now on IV lasix 40 mg daily
Lopressor 25q6 per cardiology.
# Asthma
# Likely underlying sleep apnea
Outpatient sleep study when extubated and clinically stable
# Bipolar Disorder
per mother, patient was on Lexapro but stopped on his own due to weight gain
Consider Psych CS when extubated and clinically more stable
# Hypokalemia
repleted
Diet - tube feed
DVT Ppx - SCDs
GI Ppx - Protonix 40 BID IV
Code Status - Full Code
DW RN
CC Mx 40 min
Anticipated Discharge: > 48 hours
Subjective/Interval History
-
Date of Service: March 27, 2024
Objective Data
-
Labs:
Laboratory Results
03/27/24 03/27/24
04:39 05:17
WBC 4.9
Hgb 7.7 L
Hct 23.6 L
Plt Count 119 L
HCO3 26.5
Sodium 136
Potassium 3.8
Chloride 101
Carbon Dioxide 27
BUN 18
Creatinine 0.9
Glucose 117 H
Calcium 7.2 L
Total Bilirubin 1.6 H
AST 80 H
ALT 50
Alkaline Phosphatase 57
Vital Signs:
Vital Signs
Temp Pulse Resp BP Pulse Ox
38.2 C H 92 20 100/79 100
03/27/24 07:00 03/27/24 08:08 03/27/24 08:08 03/27/24 04:00 03/27/24 08:10
I&O
03/26/24 03/27/24 03/28/24
06:59 06:59 06:59
Intake Total 2292.0 / 2435.4 3264.8 / 3264.8
Output Total 2920 / 2920 1974 / 1974
Balance -628.0 / -484.6 1289.8 / 1289.8
Review of Systems
-
Unable to obtain full review of systems at this time due to: Patient Intubation
Physical Exam
-
General: Well Developed, Well Nourished, Intubated, Appears Chronically Ill and Morbidly Obese
HEENT: Normocephalic, Atraumatic, Moist Mucous Membranes and Other (Intubated)
Respiratory: Non Labored Respirations; Negative Accessory Resp Muscle Use
Cardiac: Regular Rhythm and S1/S2; Negative Murmur or Rub
Breast: N/A
GI: Soft, Nontender, Normal Bowel Sounds and Other (dophhoff tube )
Genito-urinary: Clear Urine and Muniz
Musculoskeletal: No Clubbing, No Cyanosis and No Edema
Skin: Warm and Dry
Neuro: Sedated
Data Reviewed
-
Diagnostic Radiology: Image personally visualized and interpreted and Report Reviewed by me
Labs: Labs Reviewed by me
[2024-03-27 08:50] LABS: Absolute Neutrophils -Man Diff 2.7 10^3/uL (1.4-6.5); Band Neutrophils 5 % (0-3); Eosinophils 3 % (0-6); Lymphocytes 22 % (20-51); Monocytes 18 % (2-9); Normal RBC Morphology Yes; Platelets Checked Yes; Segmented Neutrophils 52 % (42-75); Total Cells Counted 100
[2024-03-27] MEDS: PROTONIX IV 40 MG IV ×2 (08:57→19:44)
[2024-03-27] MEDS: LUMINAL 64.8 MG PO ×3 (08:58→21:54)
[2024-03-27] MEDS: LASIX 40 MG IV (08:58)
[2024-03-27] MEDS: NSS (PRESERVATIVE FREE) 10 ML IV ×2 (08:58→19:43)
[2024-03-27] MEDS: VITAMIN B1 100 MG PO ×2 (08:58→19:44)
[2024-03-27] MEDS: FOLVITE 1 MG PO (08:58)
[2024-03-27] MEDS: SEROQUEL 50 MG TUBE (08:58)
[2024-03-27] MEDS: MIRALAX 17 GRAMS TUBE (08:59)
[2024-03-27] MEDS: FLUSH (NSS) 1 FLUSH IV (08:59)
[2024-03-27 09:41] LABS: Urine Albumin Trace (Neg - Trace); Urine Bilirubin 1+ (Negative); Urine Character Clear (Clear); Urine Color Yellow; Urine Glucose Negative (Negative); Urine Ketone Negative (Negative); Urine Leukocyte Negative (Negative); Urine Nitrite Negative (Negative); Urine Occult Blood Negative (Negative); Urine Urobilinogen 3+ (Neg - 1+)
[2024-03-27] MEDS: ZOSYN 50 IV ×3 (09:52→21:54)
[2024-03-27] MEDS: SUBLIMAZE 100 IV ×2 (09:52→23:17)
--- NOTE | 2024-03-27 10:00 | PTCARENOTE ---
Rec'd pt at 0800 resting in bed sedated on Diprivan at 15 mcg, Precedex at 0.8 mcg and Fentanyl at 100 mcg. Did briefly open eyes but became restless when blood work being done. Precedex increased at 0900 to 1 mcg and currently Diprivan decreased to
5 mcg with the goal to wean pt today. Pupils are sluggish at 2mm. No focus or tracking with eyes open. JAY restlessly but not to commands. When agitated tends to try to sit up or shake head side to side and bite on ETT. Bilat soft wrist restraints
on for pt safety. Skin is pale wm and dry. Temp 100.7 core. Rec'd Tylenol x2 on previous shift. Bruising noted on L abd. R nare with nasal packing in place. Respirs are intact on the vent. #8 Ett retaped at the 26 cm loli in the center of the mouth.
Will try pt with oral airway out. Vent AC 20, tv 500, peep 5. Does not add volume. Mostly stays controlled at 20 with the vent unless agitated then will add some breaths but will also tend to high pressure. PP normally 24-26. Pt with small amt of
bloody oral secretions, Suctioned via ETT for small amt of thick tannish sl bloody tinged secretions. + weak gag and + cough. Sats are 98% on 40% Fio2. BS are coarse and decreased with some exp wheezing post. Monitor AFib. VS as documented. +
pulses. +1 gen anasarca. Abd is obese/round with hypoactive BS. Orogastric salem NG at the 65 cm loli taped with ETT. Pt was on Jevity 1.5 55 ml/hr with 25 ml/hr flush -however noted with oral care to have what looked like some tube feed on the
swab. 325 mls residual aspirated. Aspirate reinstilled. Pt gets around 150 mls with am meds- as such tube feeds for now turned down to 30 ml/hr and will let MD's know. No stools. Miralax given as ordered. Thermistor murguia with yellow urine. Lasix
given as ordered and pt diurising currently. UA sent as ordered. Blood cultures x2 sent via peripheral sites. IV's infusing via R arm DL picc. Capped ints intact L hand and L arm. Pt turned and repositioned. Skin and mouth care given. Pts mother at
the bedside and updated on plan of care.
--- NOTE | 2024-03-27 11:15 | PTCARENOTE ---
Goal to try to wean pt today. Currently RASS is a -2 to -3. Propophol turned off. Precedex remain at 1 mcg. Deon Davis and Carlos updated on lack of BM and tube feed residual. Abd film ordered. Diurising from Pam
[2024-03-27 11:39] LABS: Glycohemoglobin (HgbA1c) 5.4 % (4.0-5.6)
--- NOTE | 2024-03-27 11:45 | PTCARENOTE ---
Pt not opening eyes currently despite Diprivan being off since 1100. Goal to try to wean pt. CPOT currently 0- will try Fentanyl down to 50 mcg. ABd xray done per md order. Family at the bedside and updated by Dr. Gonzalez.
[2024-03-27 12:21] LABS: Glucose - Point of Care 111 mg/dl (70-99)
[2024-03-27] MEDS: DULCOLAX 10 MG RECTAL (12:30)
--- NOTE | 2024-03-27 12:30 | CON.ID ---
Consultation
-
Date/Time Consultation Requested: March 27, 2024
Date/Time Consultation Performed: March 27, 2024
Requesting Provider: Dr. Makayla Davis
Performing Provider: Dr. Tamika Ramos
Reason for Consultation: Fever, withdrawal seizure
Chief Complaint / Past History
Chief Complaint
vomitting blood
History of Present Illness
History obtained from review of medical records since patient is currently intubated and sedated. He is a 38-year-old male with atrial fibrillation on Eliquis, heart failure with reduced EF, bipolar disorder on lithium, alcohol abuse who presented
to the hospital on March 23 due to hematemesis, black tarry stool x 1 week, and epistasis. He was afebrile initially. Chest x-ray showed consolidation and therefore he was started on Unasyn for aspiration pneumonia. On March 24 patient had
seizure-like activity then became unresponsive with PEA cardiac arrest. He was resuscitated. Suspicion was alcohol withdrawal. EEG negative for seizure. Yesterday he developed fever through the night. Unasyn broadened to Zosyn. He remains
intubated.
Past History
Additional Past Medical History:
Afib on Eliquis
HTN
HFrEF
anxiety
bipolar disorder
Substance abuse in the past
Robotic asst lap LACY umbilical/ventral hernia repair w mesh (04/18/2022)
Allergy History:
pollen extracts Allergy (Verified 03/23/24 18:20)
seasonal allergy/Nasal congestion
Medications Reviewed: Yes
Current Antibiotics:
Unasyn (03/24 to 03/26)
Zosyn d1
Social History
Tobacco: Non-Smoker
Alcohol: Daily (2 beer, glass of wine every other day)
Drug: Marijuana
Personal: Single
Employment: Not Employed
Family History
Family History: Not Pertinent
Review of Systems
Review of Systems
Unable to obtain due to sedation.
Vital Signs
Temp Pulse Resp BP Pulse Ox
100.1 F 87 20 91/69 97
03/27/24 11:54 03/27/24 12:00 03/27/24 12:00 03/27/24 12:00 03/27/24 12:00
Selected Entries
03/26/24
23:42
Temp 101.5 F H
Physical Exam
Physical Exam
Constitutional: Acutely Ill and Obese
Head: Other (right nare is packed)
Eyes: No Conjunctival Hemorrhage and Sclera Anicteric
Cardiovascular: Regular Rate and S1/S2
Pulmonary: Clear (Anteriorly) and Other (Decreased breath sounds at the bases)
Gastrointestinal: Soft, Non Tender, Non Distended and Normal Bowel Sounds
Genito-Urinary: Muniz and Clear Urine
Extremities: Negative Edema
Neurological: Other (sedated)
Lab / Diagnostic Study Results
03/27/24 04:39
03/27/24 04:39
Abs Immat Gran (auto) 0.1 10^3/uL (0-0.05) H 03/26/24 03:45
Absolute Neuts (auto) 2.7 10^3/uL (1.4-6.5) 03/26/24 03:45
Absolute Lymphs (auto) 0.7 10^3/uL (1.2-3.4) L 03/26/24 03:45
Absolute Monos (auto) 0.8 10^3/uL (0.1-0.6) H 03/26/24 03:45
Absolute Basos (auto) 0.0 10^3/uL (0-0.2) 03/26/24 03:45
Total Counted 100 03/27/24 04:39
Immature Gran % 1.3 % (0-0.5) H 03/26/24 03:45
Neutrophils % 60.1 % (42.2-75.2) 03/26/24 03:45
Lymphocytes % 15.6 % (20.5-51.1) L 03/26/24 03:45
Monocytes % 18.5 % (1.7-9.3) H 03/26/24 03:45
Eosinophils % 3.6 % (0-6) 03/26/24 03:45
Basophils % 0.9 % (0-2) 03/26/24 03:45
Abs Neuts (Manual) 2.7 10^3/uL (1.4-6.5) 03/27/24 04:39
Segmented Neutrophils 52 % (42-75) 03/27/24 04:39
Band Neutrophils 5 % (0-3) H 03/27/24 04:39
Lymphocytes (Manual) 22 % (20-51) 03/27/24 04:39
Eosinophils (Manual) 3 % (0-6) 03/27/24 04:39
PT 15.9 Sec (11.4-14.6) H 03/25/24 04:16
INR 1.24 03/25/24 04:16
Lactic Acid 1.1 mmol/L (0.7-2.0) 03/24/24 09:25
Procalcitonin 0.48 ng/ml (0.0-0.25) H 03/24/24 13:34
Microbiology Results
Micro:
03/25/24 13:46 Respiratory Culture - Final
Endotracheal Usual Respiratory Yvette
Gram Stain - Final
03/27/24 09:01 Blood Culture - Pending
Blood/Venous
03/27/24 09:01 Blood Culture - Pending
Blood/Venous
03/26/24 03:45 Legionella Urinary Antigen - Final
Urine Negative for Legionella pneumophila Serogroup 1 antigen.
A negative result does not rule out the possiblity of
Legionella infection due to other serogroups or species of
Legionella. Clinical correlation is recommended.
Streptococcus pneumoniae Antigen (M - Final
Negative for Streptococcus pneumoniae antigen.
A negative result does not exclude infection with
Streptococcus pneumoniae. Clinical correlation is
recommended.
03/24/24 17:54 Legionella Urinary Antigen - Final
Urine Negative for Legionella pneumophila Serogroup 1 antigen.
A negative result does not rule out the possiblity of
Legionella infection due to other serogroups or species of
Legionella. Clinical correlation is recommended.
Streptococcus pneumoniae Antigen (M - Final
Negative for Streptococcus pneumoniae antigen.
A negative result does not exclude infection with
Streptococcus pneumoniae. Clinical correlation is
recommended.
03/27/24 CXR: Moderate cardiomegaly. Mild pulmonary edema. Suspected small bilateral pleural effusions. Left lower lobe airspace disease may also be present.
03/27/24 AXR: Nonspecific bowel gas pattern without signs of obstruction.
03/24/24 CT a/p: Moderate bibasilar consolidation. This may represent atelectasis or pneumonia. Bilateral lower lobe, lingular and right upper lobe atelectasis versus scarring. Small pericardial effusion. Findings suggesting mild volume overload or
third spacing.
Assessment / Plan
# Aspiration pneumonia
# UGI bleed/hematemesis
# blood loss anemia
# Alcohol withdrawal
# s/p PEA cardiac arrest
# New Fever
- Sputum cx; usual respiratory yvette
- blood cx's pending
- Suspect drug fever. Onset started with initiation precedex.
Fever can also be due to alcohol withdrawal.
- Repeat sputum cx.
- Can continue Zosyn for now.
# Conditions CNA LTC
Afib on Eliquis
HTN
HFrEF
anxiety
bipolar disorder
Substance abuse in the past
ETOH abuse
Robotic asst lap LACY umbilical/ventral hernia repair w mesh (04/18/2022)
--- NOTE | 2024-03-27 12:45 | PTCARENOTE ---
Pt currently on Fentanyl at 50 mcg and Precedex at 1 mcg. Did open eyes to verbal and tactile stimuli- started to get restless and try to sit up and bite on ETT but then settled back down on his own and then on another occasion just opened his eyes
to command and did look in the direction of the stimuli but did not follow commands beyond. Assessment is otherwise unchanged. Tolerating vent AC settings but goal is to dry SBT. Jevity tueb feeds at 30 ml/hr with 25 ml/hr flush. 250 residual
aspirated and reinstilled. Dulcolax supp given as ordered. Diurising from Lasix. Repositioned, Skin and mouth care given.
--- NOTE | 2024-03-27 13:35 | PTCARENOTE ---
Placed on CPAP 5/PS 5 at 1310- currently tolerating well with RR 14-16 and TV in the 510-560 range. Appears comfortable currently. Did briefly open eyes but then dozed back off. Precedex at 1 mcg and Fent at 50 mcg.
--- NOTE | 2024-03-27 14:57 | PTCARENOTE ---
Overall has been tolerating CPAP 5/PSV 5 wean. RR mostly when calm is 14-17 and TV in the 480-570 range. Does have some abd breathing but vent not alarming and getting volumes and sats 98%. Then repostioned pt and after repositioning eyes were open-
but pt very agitated. Trying to sit up. Looking at stimuli and shaking his head no side to side. Unable to calm and RR in the 30's. Medicated with Fentanyl 50 mcg IV at 1447 and pt currently calmer. Family at the bedside. Precedex at 1 mcg and Fent
at 50 mcg
--- NOTE | 2024-03-27 15:00 | PTCARENOTE ---
additional assessment- when wakeful and agitated pt will reach up at ETT.
--- NOTE | 2024-03-27 15:29 | RESPNOTE ---
Respiratory: patient weaned for two hours RSBI 40-50s, patient started with belly breathing/asynchrony with the SBT RR increased to low 30s. Returned back to previous vent settings.
--- NOTE | 2024-03-27 15:30 | PTCARENOTE ---
Overall tolerated CPAP 5/PS 5 wean. Having some dysnchronous abd breathing but not setting off vent alarms but rates which were 15-16 are now in the 30 range and TV 400's. Currently placed back on AC settings. No other changes.
--- NOTE | 2024-03-27 16:34 | CHAP ---
Visited [facility] at 10:30am, with sister, Sherley, present. She shared background, and welcomed prayer. Emotional and spiritual support provided. Will continue to follow as able.
--- NOTE | 2024-03-27 17:25 | PTCARENOTE ---
Pt placed back on AC settings at 1530 and was tolerating with RR 20 and TV 400's. Calm until stimulated to do mouth care and turn then pt became very agitated- trying to sit up. Dysychronous with the vent. Trying to mouth that he can't breathe-
pulling at tubes and at one pt despite being restrained sat up and pulled tightly on the tubing for the ETT suction cath. would not let go. Eyes open looking at staff intermittently. Thrashing around the bed. HR up briefly to the 150' settled down a
little once fully repositioned. Once repositioned and restraints adjusted closed eyes and extended his middle finger to the staff twice. - Medicated at 1720 with Fentanyl 50 mcg moreso because he continued to have abd breathing. Sats 97% and
currently is more restful. Suctioned for a small amt of tannish secretions. Sputum sent as ordered. VS as documented. HR back down to the 100's. Tube feeds continue- residual 275 mls- did with thrasing around have a small amt of tube feed at the
corner of his mouth but no additional seen on mouth swabs. OG tube at [address] Gonzalez and will keep tube feeds at 30 mls/hr. No stools. Repositioned. Fentanyl and Precedex gtts continue will leave at current rate now that pt is
calmer.
[2024-03-27 18:40] LABS: Glucose - Point of Care 105 mg/dl (70-99)
--- NOTE | 2024-03-27 19:00 | PTCARENOTE ---
Has been calmer. Currently woke up but was looking around and nodded head and even smiled. No other changes
[2024-03-27] MEDS: SEROQUEL 100 MG TUBE (19:44)
--- NOTE | 2024-03-27 20:00 | PTCARENOTE ---
Received pt intubated and sedated on precedex and fentanyl gtts. Pt. opens eye spontaneously and with cares. Tracking, trying to nod head yes/no, following simple commands. Agitated at times, PRN fentanyl bolus given. B/L wrist restraints in place
for safety. #8.0 ETT moved to 26 in the center. Lungs diminished and coarse throughout. Mouth care provided. Afib on tele, HR 80-90s. BP 110/80s. +1 gen anasarca. SCDs maintained. OG tube with jevity 1.5 @ 30ml/hr with 25ml h20 flush. Prosource
given. Hypoactive bowel sounds. Round, obese abd. R nare with packing in place. Temp sensing murguia draining aj urine. R DL PICC with fentanyl and precedex gtts infusing. Turning q2.
Family at bedside - pt seemed more agitated when they were at bedside and holding his hand. Support given and kindly asked to not stimulate pt. at this time so that he can rest.
[2024-03-27] MEDS: NSS (PRESERVATIVE FREE) 1 ML IV (20:52)
[2024-03-28] VITALS (27 sets, daily range): BP systolic 100–145; BP diastolic 80–106; BMI 39.5
[2024-03-28 00:01] LABS: Glucose - Point of Care 100 mg/dl (70-99)
[2024-03-28] MEDS: SUBLIMAZE 50 MCG IV ×7 (00:15→22:10)
[2024-03-28] MEDS: PRECEDEX 100 IV ×11 (01:58→23:41)
[2024-03-28] MEDS: ATIVAN 2 MG IV ×3 (02:17→14:46)
[2024-03-28] MEDS: TYLENOL ORAL SOLUTION 650 MG TUBE ×2 (02:20→12:11)
--- NOTE | 2024-03-28 02:24 | PTCARENOTE ---
Pt. intermittently agitated even without stimulation. Awakens suddenly, vent alarms, pt found trying to reach for ETT, fighting restraints, kicking legs out of bed, tachy HR 130s. Attempts to redirect are unsuccessful, not following commands when
agitated. Ativan and fentanyl IVPs given PRN- see MAY. Precedex was increased to 1.2mcg. Temp back up to 101.0- tylenol given via OG tube. Monitoring
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
[2024-03-28] MEDS: ZOSYN 50 IV ×4 (03:45→22:10)
[2024-03-28] MEDS: NSS (PRESERVATIVE FREE) 1 ML IV (04:10)
[2024-03-28 04:31] LABS: Hematocrit 23.2 % (39.0-52.0); Hemoglobin 7.6 g/dL (13.0-18.0); Mean Corp Hgb Conc. 32.8 g/dL (33.0-37.0); Mean Corpuscular Hgb 30.2 pg (27.0-31.0); Mean Corpuscular Volume 92.1 fL (80.0-94.0); Mean Platelet Volume 10.2 fL (7.4-10.4); Platelet Count 130 10^3/uL (130-400); Red Blood Cell Count 2.52 10^6/uL (4.70-6.10); White Blood Cell Count 4.7 10^3/uL (4.8-10.8)
[2024-03-28 04:37] LABS: ALT (SGPT) 41 U/L (0-50); AST (SGOT) 64 U/L (17-59); Albumin 2.8 g/dl (3.5-5.0); Alkaline Phosphatase 67 U/L (38-126); Blood Urea Nitrogen 17 mg/dl (9-20); Calcium 7.2 mg/dl (8.4-10.2); Carbon Dioxide 28 mmol/L (22-30); Chloride 103 mmol/L (98-107); Estimated Creatinine Clearance > 125 ml/min; Glucose 113 mg/dl (70-99); Magnesium 1.9 mg/dl (1.6-2.3); Phosphorus 3.3 mg/dl (2.5-4.5); Potassium 3.7 mmol/L (3.5-5.1); Sodium 136 mmol/L (135-145); Total Bilirubin 1.5 mg/dl (0.2-1.3); eGFR > 60.00
[2024-03-28] MEDS: LOPRESSOR 25 MG TUBE ×4 (05:18→23:42)
[2024-03-28 05:20] LABS: O2 Saturation % 99.8 % (94-98); PCO2 38 mmHg (35-48); PO2 112 mmHg (83-108); pH 7.46 (7.35-7.45)
--- NOTE | 2024-03-28 06:34 | PTCARENOTE ---
Pt. remained agitated, thrashing in bed at times. Precedex max'd at 1.5mcg. Fentanyl bolus and gtt increased again to 100mcg. Pt. more calm since these increases. Had small dark/green BM- cleaned and linens changed.
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
[2024-03-28] MEDS: DUONEB 3 ML INH ×4 (07:52→20:46)
[2024-03-28] MEDS: FLOVENT 220 MCG INHALER 2 PUFF INH ×2 (07:52→20:47)
[2024-03-28 07:54] LABS: Absolute Neutrophils -Man Diff 2.4 10^3/uL (1.4-6.5); Band Neutrophils 3 % (0-3); Eosinophils 6 % (0-6); Lymphocytes 26 % (20-51); Monocytes 15 % (2-9); Normal RBC Morphology Yes; Platelets Checked Yes; Segmented Neutrophils 50 % (42-75); Total Cells Counted 100
--- NOTE | 2024-03-28 08:00 | W.PN.HOSP.TC ---
Today's Communication/Plan
-
see A/P
Assessment / Plan
Assessment / Plan
A/P:
# Severe alcohol use disorder w/ possible withdrawal seizure
Currently intubated with sedation
Weaned off propofol, replaced with Precedex gtt
Cont fentanyl gtt
started PO Seroquel for agitation, cont
Off brivaracetam, Continue phenobarbital
neuro on board
MSAS protocol when extubated
# Cardiac Arrest s/p CPR on 03/24
Intubated for airway protection
Vent and sedation per Telemarketing Agent
CT head no acute intracranial abnormality
EEG not reliable with current sedation, showed diffuse cortical dysfunction without focal abnormality or seizures
Noted persistent fever, check repeat CT head to eval for ischemic brain injury from cardiac arrest
# sepsis, Likely Aspiration PNA
# Persistent fever
CXR noted new mild right upper lobe airspace disease. Follow up CXR 03/27: Suspected small bilateral pleural effusions. Left lower lobe airspace disease may also be present.
CT Chest with moderate bibasilar consolidation.
procal 0.48
Changed Unasyn to Zosyn
Appreciate ID input
Check CT head to eval for ischemic brain injury from cardiac arrest
# Elevated troponin, likely related to cardiac arrest
# lactic acidosis, resolved
trop peaked at 0.375
Echo noted moderately reduced EF 30-35%. The ventricle is globally hypokinetic. Diastolic function indeterminate.
Metoprolol 25 mg Q6H for rate control of AFib
Eliquis on hold
Card on board
# Acute HFrEF
Cont IV lasix 40 mg daily
Lopressor 25q6 per cardiology.
# Upper GI Bleed with melena
Holding [employer]ER Eliquis
s/p 1u pRBCs transfusion
Follow Hgb, today at 7.6
Continue Protonix IV twice daily
GI on board
# Elevated LFT, likely due to cardiac arrest in setting of alcohol abuse/fatty liver
LFT improving, follow LFT
Abd US: hepatic fatty infiltration
CT AP largely unrevealing
# Concurrent Epistaxis
s/p TXA & cauterization by ENT
No signs of active bleeding on exam
Cont packing, ENT following
# Hyponatremia likely due to alcohol abuse, resolved
sodium level 123 on admission, today at 136
cont to follow
# Asthma
# Likely underlying sleep apnea
Outpatient sleep study when extubated and clinically stable
# Bipolar Disorder
per mother, patient was on Lexapro but stopped on his own due to weight gain
Consider Psych CS when extubated and clinically more stable
# Hypokalemia
repleted
Diet - tube feed
DVT Ppx - SCDs
GI Ppx - Protonix 40 BID IV
Code Status - Full Code
DW RN
DW mother at bedside
CC Mx 40 min
Anticipated Discharge: > 48 hours
Subjective/Interval History
-
Date of Service: March 28, 2024
Objective Data
-
Labs:
Laboratory Results
03/28/24 03/28/24
03:48 04:49
WBC 4.7 L
Hgb 7.6 L
Hct 23.2 L
Plt Count 130
HCO3 27.0
Sodium 136
Potassium 3.7
Chloride 103
Carbon Dioxide 28
BUN 17
Creatinine 0.8
Glucose 113 H
Calcium 7.2 L
Total Bilirubin 1.5 H
AST 64 H
ALT 41
Alkaline Phosphatase 67
Vital Signs:
Vital Signs
Temp Pulse Resp BP Pulse Ox
38.6 C H 88 18 115/84 100
03/28/24 07:00 03/28/24 07:52 03/28/24 07:52 03/28/24 06:00 03/28/24 06:30
I&O
03/27/24 03/28/24 03/29/24
06:59 06:59 06:59
Intake Total 3264.8 / 3391.9 2893.9 / 2893.9
Output Total 1974 2910 / 2910
Balance 1289.8 / 1376.9 -16.1 / -16.1
Review of Systems
-
Unable to obtain full review of systems at this time due to: Patient Intubation
Physical Exam
-
General: Well Developed, Well Nourished, Intubated, Appears Chronically Ill and Morbidly Obese
HEENT: Normocephalic, Atraumatic, Moist Mucous Membranes and Other (Intubated on vent)
Respiratory: Non Labored Respirations; Negative Accessory Resp Muscle Use
Cardiac: Regular Rhythm and S1/S2; Negative Murmur or Rub
Breast: N/A
GI: Soft, Nontender, Normal Bowel Sounds and Other (dophhoff tube with tube feed)
Genito-urinary: Muniz
Musculoskeletal: No Clubbing, No Cyanosis and No Edema
Skin: Warm and Dry
Neuro: Sedated
Data Reviewed
-
Diagnostic Radiology: Image personally visualized and interpreted and Report Reviewed by me
Labs: Labs Reviewed by me
[2024-03-28] MEDS: FOLVITE 1 MG PO (08:04)
[2024-03-28] MEDS: PROTONIX IV 40 MG IV ×2 (08:04→19:38)
[2024-03-28] MEDS: LASIX 40 MG IV (08:04)
[2024-03-28] MEDS: LUMINAL 64.8 MG PO ×3 (08:04→22:10)
[2024-03-28] MEDS: VITAMIN B1 100 MG PO ×2 (08:04→19:38)
[2024-03-28] MEDS: MIRALAX 17 GRAMS TUBE (08:04)
[2024-03-28] MEDS: NSS (PRESERVATIVE FREE) 10 ML IV ×2 (08:04→19:38)
[2024-03-28] MEDS: SEROQUEL 100 MG TUBE ×2 (08:04→19:38)
--- NOTE | 2024-03-28 08:10 | W.PN.INTV ---
Today's Communication / Plan
Recommendations
Mechanical ventilation with daily SAT/SBT if clinically appropriate
Continue Seroquel and Precedex
Come down on fentanyl gtt as tolerated
Continue with phenobarbital
EEG performed on 03/25 showed diffuse cortical dysfunction without focal abnormality or seizures
Check CT chest/abdomen/pelvis to evaluate for source of infection
If infection stable then consider decreasing Precedex given possible drug-induced fever
Antibiotics x 5-7 days total; follow up infectious workup
DuoNebs + Flovent
Thiamine/folic acid
Stress ulcer prophylaxis - start LMWH given stable Hb and BUN now normal
SCDs; continue to hold Eliquis for now, but could resume if Hb remains stable on Lovenox
Continue ICU level of care for this critically ill patient
Assessment
-
Assessment: 38-year-old male non-smoker with a past medical history of persistent A-fib on Eliquis, bipolar affective disorder, asthma, and hypertension who presented with vomiting blood 1 day prior to arrival with dark stools as well as a
nosebleed. He has been having fatigue, shortness of breath and confusion with chest pain. He is normally on Eliquis but he has been holding it for few days due to his bleeding. He does follow-up with cardiology with last visit on 02/17/[address] Phillips[address] He has a history of nonischemic cardiomyopathy with prior EF of 20-25% with global hypokinesis from echo in December 2023. He was discussing getting an ablation for his A-fib. He has a history of cardioversion x 2 with failure to
restore into sinus rhythm. Also it has been difficult to choose an antiarrhythmic drug in the setting of his lithium drug use with risk of QT prolongation. In the ER he told the doctor he has been having a bloody nose which started on the day of
ER arrival, and has been vomiting bright red blood with dark tarry stools for 1 week. Last dose of Eliquis was on Friday (03/21/2024). In the ER he was afebrile to 97.1 �F, pulse rate 97, breathing at 20 breaths/minute, BP 129/83 and saturating 98%
on room air. Initial labs showed Hb 8.9, platelet count 115, sodium 123, chloride 87, BUN 33, serum osmolarity 302, and urinalysis negative for signs of UTI. Initial CXR showed suspected small right pleural effusion with possible pneumonia in the
right middle lobe. He was initially admitted to the IMU for a GI bleed with epistaxis. Overnight he was agitated and required Precedex drip so was transferred to the ICU, and developed a cardiac arrest while trying to get up out of bed. He was
labeled DNR however when the ICU SILO FILLER call the family this was reversed, and CPR/ACLS was initiated. He was given an amp of epinephrine and pulse was regained and then he became bradycardic and lost pulse again. CPR resumed and given 2 A of epi and
patient was intubated. ROSC regained. Due to his prearrest seizure-like activity, neurology was called and empiric Keppra was given. TTM was not started given his acute upper GI bleed and epistaxis. He has continued to be managed in the ICU and
committee member services consulted for additional management/recommendations.
Chronic conditions [employer]: Asthma, hypertension, bipolar 1 disorder, A-fib
Impression:
#Hemorrhagic shock - shock state now resolved
#In-hospital cardiac arrest with preceding seizure-like activity (withdrawal seizure vs myoclonic jerks)
#Acute blood loss anemia due to reported epistaxis and UGIB with hematemesis
#Acute respiratory failure with hypoxia now on mechanical ventilation (intubated 03/24/2024)
#RUL + bilateral lower lobe pneumonia (confirmed on CT Chest from 03/24/2024)
#Acute thrombocytopenia
#Alcoholism with use of alcohol use drinking vodka daily as well as wine
#Suspected alcohol withdrawal seizure
#History of anxiety
#Metabolic acidosis with increased anion gap + respiratory acidosis - acidosis now resolved
#Lactic acidosis � now resolved
#Hypochloremic, hyponatremia � now resolved
#Hyperglycemia � now resolved
#Transaminitis with hyperbilirubinemia
#Elevated troponin likely due to cardiac arrest
#Chronic HFrEF with RV dysfunction seen on TTE from 03/24/2024
Plan:
- Initially patient admitted to the ICU and in the middle the night on 03/24/2024 and became agitated and tried to get out of bed, then had seizure-like activity, became unresponsive and then cardiac arrested s/p ROSC
- Unable to do hypothermic protocol due to suspected upper GI bleed
- Ensure core temperature-sensing probe remains in place x 48-72 hours to assure fever is avoided - he is now >72 hours since cardiac arrest so not as critical to avoid fever
- Minimize sedation to help prognosticate, although continue AEDs as per neurology - currently on luminal and not on keppra or another AED
- Neurology consulted --> EEG done AM of 03/24 showing very low amplitude with near cerebral signs, likely due to sedation that was administered prior to EEG
- EEG repeated on 03/25/2024 showing diffuse bihemispheric slowing with no seizures
- CT head on showed no acute intracranial pathology with acute and chronic sinusitis
- Repeat CT head today given continued fevers with possible SECTION GANG WORKER cause s/p cardiac arrest
- I discussed with pharmacy today and apparently phenobarbital can also cause fevers; he is also on precedex
- Continue mechanical ventilation with daily SAT/SBT if clinically appropriate
- Titrate FiO2 + PEEP to keep SpO2 >94%
- Maintain plateau pressure <30
- Frequent oropharyngeal + deep ETT suctioning as needed
- Continue IV lasix with 40mg daily and trend I/O and trend UOP
- Postcardiac arrest CXR showed new opacification in the right upper lobe concerning for aspiration, and CT chest confirmed RUL/bibasilar pneumonia--> continue Abx --> unasyn changed to Zosyn on 03/27 due to fevers overnight; blood CX checked X2 on
03/27; respiratory Cx from 03/25 showed usual yvette
- Both urine antigens for legionella and Strep PNA both negative
- Given history of asthma with peak to plateau difference was >5 on 03/24/2024 with prolonged expiration, continue scheduled DuoNebs + Flovent BID
- prn nebulized bronchodilators
- Goal RASS 0 to -2 --> continue Seroquel; continue precedex as well however may need to stop given his fevers
- Check CT Chest/Abd/Pelvis today given his fevers
- Trend procal
- Alreayd on Zosyn
- If imaging does not show any concern for worsening infection and procalcitonin is downtrending then may need to wean off Precedex given his fever
- GI consulted; there definitely is concern for an upper GI bleed as he had reported vomiting blood with tarry stools for a week, and his BUN is elevated with normal creatinine (although he was reportedly on steroids prior to admission, but mother
said he was on steroids for an asthma flare 'few weeks ago,' so this would not still cause a rise in his BUN at this current time)
- Maintain large bore IV x2
- PPI 40mg IV BID
- Defer EGD to GI - currently being held off
- His BUN is now normal at 18 as of 03/27/2024, and H&H has also been stable between 7.2�8 since 03/24/2024; he was TRX 1 U PRBC on 03/23/2024
- Abdominal ultrasound 03/24 shows hepatic fatty infiltration with no signs of cirrhosis
- Ammonia level <9
- Trend H/H and transfuse if needed to keep Hb>7g/dL; keep plt>50k
- Hold antiplatelet/anticoagulants
- Continue thiamine + folic acid
- Continue phenobarbital to prevent any seizure activity from alcohol withdrawal now that he is off propofol
- This was discussed with neurology and Dr. Davison agrees with this plan
- Continue nasal packing in R-nares
- ENT following
- Abx (now on Zosyn) as above while packing is in place to prevent TSS
- Continue trending sNa
- Trend LFTs
- Trend sHCO3 level and trend pH and pCO2 - no need for bicarb drip at this time as he is now alkalemic - vent changes made to account for this
- Continue with Lopressor 25mg q6hr with holding parameters (takes Toprol-XL at home)
- Cardiology on board and recommendations appreciated
- Maintain MAP>65
- Replete electrolytes with K>4, Mg>2
- Maintain euglycemia with goal BG 140-180 with ISS q6hr
- DVT ppx: SCDs and start LMWH today and c/t trend H/H; previously he stopped his Eliquis [employer] due to nosebleeds, plus he was scheduled for an ablation given Hx of A-fib
Critical care statement: A total of 41 minutes of critical care time was provided for this patient today. This includes management of unstable vital signs, evaluation of the patient at bedside, reviewing the patient's pertinent medical records
including radiographs, microbiology, laboratory evaluations, and discussion with primary team, consultants, pharmacy, nutrition, physical therapy, case management, charge nurse, critical care nursing, and respiratory therapy.
Data:
CXR 03/24/2024:
New mild right upper lobe airspace disease concerning for developing pneumonia.
Possible developing pneumonia in the right costophrenic angle versus atelectasis. Progressed. Mild.
Tiny right pleural effusion. Progressed.
Cardiomegaly. Stable.
CXR 03/27/2024:
1. Moderate cardiomegaly. Mild pulmonary edema.
2. Suspected small bilateral pleural effusions. Left lower lobe airspace disease may also be present.
CXR 03/28/2024: Mild to moderate CHF, slightly progressed. Small right and [id number] left pleural effusions with associated atelectasis and/or pneumonia, progressed.
CT chest/abdomen/pelvis without contrast 03/24/2024:
Moderate bibasilar consolidation. This may represent atelectasis or pneumonia.
Bilateral lower lobe, lingular and right upper lobe atelectasis versus scarring.
Small pericardial effusion.
Findings suggesting mild volume overload or third spacing.
Minimal diverticulosis.
Subjective Dataa
Subjective Data
Date of Service:
Date of Service: March 28, 2024
Chief Complaint: Solution Manager Follow Up
Subjective:
Patient seen and evaluated this morning. Febrile overnight as well as this morning. Tmax 101.4 �F. Family at bedside and all questions were answered. Currently intubated on AC/CMV at 18/450/40%/5, with PIP: [id number]. Heart rate 106, SpO2 99%, BP
108/85 and ETCO2: 39. Currently sedated on Precedex at 1.5mcg/kg/hr, and fentanyl at 125mcg/min. Off propofol since 03/27. RASS score is +2 this morning, sometimes +3. He is occasionally opening his eyes but not following commands.
Review of Systems
General: Unobtainable - Sedation
Objective Data
Data Reviewed
Vital Signs / I&O / Oxygen:
Vital Signs
Temp Pulse Resp BP Pulse Ox
101.4 F H 88 18 115/84 98
03/28/24 07:00 03/28/24 07:52 03/28/24 07:52 03/28/24 06:00 03/28/24 08:45
Intake and Output
03/27/24 03/28/24 03/29/24
06:59 06:59 06:59
Intake Total 3264.8 / 3391.9 2893.9 / 3010.7 539.7 / 539.7
Output Total 1974 2910 / 2910 2099 / 2099
Balance 1289.8 / 1376.9 -16.1 / 100.7 -1560.3 / -1560.3
SaO2 [CPAP/PSV] 100
SaO2 [A/C] 100
SaO2 98
Physical Exam
General: Respiratory Distress (negative), Comfortable, Chills (negative) and Sweats (negative)
HEENT: Normocephalic, Anicteric, Other (Thick neck) and Other (ETT in place)
Cardiovascular: S1-S2 and Peripheral Edema (Trace lower extremity edema bilaterally)
Respiratory: Wheeze (negative), Crackles (Bilateral), Rhonchi (negative), Non-Labored Respirations and ET Tube (Mechanical breath sounds heard bilaterally)
GI: Soft, Distended (Abdominal obesity), Non Tender and Normal Bowel Sounds
Neurology: Tremors (negative) and Other (Sedated and occasionally agitated; intact gag, corneals and pupillary reflexes; pupils +2 mm bilaterally and sluggish; not following commands)
Skin: Warm, Dry, Cyanosis (negative), Jaundice (negative) and Rash (negative)
Labs/Micro/Reports
Lab Data
03/28/24 03:48
03/28/24 03:48
Laboratory Results
03/28/24
04:49
pH 7.46 H
pCO2 38
pO2 112 H
HCO3 27.0
O2 Delivery Level
Microbiology
03/27/24 09:01 Blood/Venous Blood Culture - Preliminary
No Growth in 24 hours- Final report to follow
03/27/24 09:01 Blood/Venous Blood Culture - Preliminary
No Growth in 24 hours- Final report to follow
03/25/24 13:46 Endotracheal Respiratory Culture - Final
Usual Respiratory Yvette
03/25/24 13:46 Endotracheal Gram Stain - Final
03/26/24 03:45 Urine Legionella Urinary Antigen - Final
Negative for Legionella pneumophila Serogroup 1 antigen.
A negative result does not rule out the possiblity of
Legionella infection due to other serogroups or species of
Legionella. Clinical correlation is recommended.
03/26/24 03:45 Urine Streptococcus pneumoniae Antigen (M - Final
Negative for Streptococcus pneumoniae antigen.
A negative result does not exclude infection with
Streptococcus pneumoniae. Clinical correlation is
recommended.
03/24/24 17:54 Urine Legionella Urinary Antigen - Final
Negative for Legionella pneumophila Serogroup 1 antigen.
A negative result does not rule out the possiblity of
Legionella infection due to other serogroups or species of
Legionella. Clinical correlation is recommended.
03/24/24 17:54 Urine Streptococcus pneumoniae Antigen (M - Final
Negative for Streptococcus pneumoniae antigen.
A negative result does not exclude infection with
Streptococcus pneumoniae. Clinical correlation is
recommended.
[2024-03-28 11:36] LABS: NT-proBNP 2290 pg/ml
--- NOTE | 2024-03-28 11:42 | W.PN.ID1 ---
Date of Service
Date of Service: March 28, 2024
Today's Communication
- Check COVID and Influenza
- Continue empiric Zosyn pending sputum cx.
Assessment / Plan
# Aspiration pneumonia
# s/p UGI bleed/hematemesis
# blood loss anemia
# Alcohol withdrawal
# s/p PEA cardiac arrest
# Acute on chronic CHF, procalcitonin >2000
# New Fever persist
- Suspect drug fever. Onset started with initiation precedex.
- Fever can also be due to alcohol withdrawal.
- Repeat Sputum cx pending
- blood cx's neg x 24h
-UA neg
- Check COVID and Influenza
- Continue empiric Zosyn pending sputum cx.
-Follow temps
# Conditions MOLD UN[employer]ER
Afib on Eliquis
HTN
HFrEF
anxiety
bipolar disorder
Substance abuse in the past
ETOH abuse
Robotic asst lap LACY umbilical/ventral hernia repair w mesh (04/18/2022)
Chief Complaint
-: Fever
Subjective / Review of Systems
Remains on vent.
Vital Signs / Physical Exam
Vital Signs
Vital Signs
Temp Pulse Resp BP Pulse Ox
101.4 F H 88 18 115/84 97
03/28/24 11:00 03/28/24 11:18 03/28/24 11:18 03/28/24 06:00 03/28/24 11:18
Physical Exam
Constitutional: Acutely Ill
Eyes: Sclera Anicteric
Cardiovascular: Regular Rate and S1/S2
Pulmonary: Clear (anteriorly)
Gastrointestinal: Soft, Non Tender, Non Distended and Normal Bowel Sounds
Genito-Urinary: Muniz and Clear Urine
Extremities: Edema
Objective Data
Lab Data
Lab Results
03/28/24 03:48
03/28/24 03:48
PT 15.9 Sec (11.4-14.6) H 03/25/24 04:16
INR 1.24 03/25/24 04:16
APTT 26.3 Sec (23.4-35.0) 03/24/24 03:19
Estimated Creat Clear > 125 ml/min 03/28/24 03:48
Lactic Acid 1.1 mmol/L (0.7-2.0) 03/24/24 09:25
Total Bilirubin 1.5 mg/dl (0.2-1.3) H 03/28/24 03:48
AST 64 U/L (17-59) H 03/28/24 03:48
ALT 41 U/L (0-50) 03/28/24 03:48
Alkaline Phosphatase 67 U/L (38-126) 03/28/24 03:48
Most recent labs reviewed.
Micro Results:
03/27/24 09:01 Blood Culture - Preliminary
Blood/Venous No Growth in 24 hours- Final report to follow
03/27/24 09:01 Blood Culture - Preliminary
Blood/Venous No Growth in 24 hours- Final report to follow
03/27/24 17:30 Respiratory Culture - Pending
Sputum Gram Stain - Pending
03/25/24 13:46 Respiratory Culture - Final
Endotracheal Usual Respiratory Michelle
Gram Stain - Final
03/26/24 03:45 Legionella Urinary Antigen - Final
Urine Negative for Legionella pneumophila Serogroup 1 antigen.
A negative result does not rule out the possiblity of
Legionella infection due to other serogroups or species of
Legionella. Clinical correlation is recommended.
Streptococcus pneumoniae Antigen (M - Final
Negative for Streptococcus pneumoniae antigen.
A negative result does not exclude infection with
Streptococcus pneumoniae. Clinical correlation is
recommended.
03/24/24 17:54 Legionella Urinary Antigen - Final
Urine Negative for Legionella pneumophila Serogroup 1 antigen.
A negative result does not rule out the possiblity of
Legionella infection due to other serogroups or species of
Legionella. Clinical correlation is recommended.
Streptococcus pneumoniae Antigen (M - Final
Negative for Streptococcus pneumoniae antigen.
A negative result does not exclude infection with
Streptococcus pneumoniae. Clinical correlation is
recommended.
03/28/24 CXR: Mild to moderate CHF, slightly progressed. Small right and [id number] left pleural effusions with associated atelectasis and/or pneumonia, progressed.
03/27/24 CXR: Moderate cardiomegaly. Mild pulmonary edema. Suspected small bilateral pleural effusions. Left lower lobe airspace disease may also be present.
03/27/24 AXR: Nonspecific bowel gas pattern without signs of obstruction.
03/24/24 CT a/p: Moderate bibasilar consolidation. This may represent atelectasis or pneumonia. Bilateral lower lobe, lingular and right upper lobe atelectasis versus scarring. Small pericardial effusion. Findings suggesting mild volume overload or
third spacing.
[2024-03-28 12:06] LABS: Glucose - Point of Care 122 mg/dl (70-99)
[2024-03-28] MEDS: CALCIUM GLUCONATE 100 IV (12:15)
[2024-03-28] MEDS: SUBLIMAZE 100 IV ×2 (12:28→19:39)
[2024-03-28] MEDS: VERSED 2 MG IV (12:30)
[2024-03-28] MEDS: SUBLIMAZE 100 MCG IV (12:30)
--- NOTE | 2024-03-28 14:16 | PTCARENOTE ---
Pt sedated on precedex and fentanyl. Pt very agitated with turns and care, kicking legs and sitting up in bed. Afib on monitor. Lungs sounds course. Tube feed held for 2 hrs d/t 350ml residual. Not advanced to goal. No BM. Large amount of
urine output s/p lasix this am. See I&Os. Pt taken to CT for head/chest/abd/pelvis. Awaiting results. All other assessments unchanged. Family at bedside.
--- NOTE | 2024-03-28 14:52 | PTCARENOTE ---
While attempting to give pt CHG bath, pt became agitated, kicking and trying to grab staff. Staff assist button activated. Required 5 staff members to hold pt down. PRN Fentanyl and Ativan given. Applied leg restraints. notified.
[2024-03-28 15:45] LABS: COVID-19 Antigen Positive (Negative)
[2024-03-28 17:45] LABS: Glucose - Point of Care 120 mg/dl (70-99)
--- NOTE | 2024-03-28 18:09 | PTCARENOTE ---
Covid positive. Family updated on hospital covid policy. Pt intermittently agitated. All other assessments unchanged.
[2024-03-28] MEDS: LOVENOX 40 MG SC (19:38)
--- NOTE | 2024-03-28 20:00 | PTCARENOTE ---
Received pt intubated and sedated on precedex and fentanyl gtts. Fluttered eyes open with nursing care but no tracking or commands followed. Mildly agitated but did not require fentanyl or ativan at this time. [address] for
safety. #8.0 ETT moved to 26 on left. Lungs diminished bibasilar and coarse throughout. Mouth care provided. Afib on tele, HR 80-90s. BP 110/80-90s. +1 gen anasarca. SCDs maintained. OG tube with jevity 1.5 @ 30ml/hr with 25ml h20 flush. Prosource
given. Hypoactive bowel sounds. Round, obese abd. R nare with packing in place. Temp sensing murguia draining aj urine. R DL PICC with fentanyl and precedex gtts infusing. Turning q2.
Mother and sister at bedside - updated. Both went home for the night to rest.
[2024-03-29] VITALS (22 sets, daily range): BP systolic 97–137; BP diastolic 74–99; BMI 39.6
--- NOTE | 2024-03-29 | PTCARENOTE ---
No changes in assessment. Muniz + mouth care provided
[2024-03-29 00:07] LABS: Glucose - Point of Care 110 mg/dl (70-99)
[2024-03-29] MEDS: SUBLIMAZE 100 IV ×5 (01:02→21:59)
[2024-03-29] MEDS: PRECEDEX 100 IV ×7 (01:52→18:16)
[2024-03-29] MEDS: ZOSYN 50 IV ×2 (03:15→10:11)
[2024-03-29] MEDS: TYLENOL ORAL SOLUTION 650 MG TUBE ×2 (03:15→11:21)
--- NOTE | 2024-03-29 03:32 | PTCARENOTE ---
Pt. more cooperative with care/turns. Eyes open when stimulated but not agitated. No commands followed. Goes back to resting quickly when undisturbed. AM labs drawn. Tylenol given for temp 101.3.
[2024-03-29 03:47] LABS: Hematocrit 24.4 % (39.0-52.0); Hemoglobin 7.8 g/dL (13.0-18.0); Mean Corpuscular Hgb 29.3 pg (27.0-31.0); Mean Corpuscular Volume 91.7 fL (80.0-94.0); Mean Platelet Volume 10.3 fL (7.4-10.4); Platelet Count 171 10^3/uL (130-400); Red Blood Cell Count 2.66 10^6/uL (4.70-6.10); Red Cell Dist. Width 15.1 % (11.5-14.5); White Blood Cell Count 5.2 10^3/uL (4.8-10.8)
[2024-03-29 04:10] LABS: ALT (SGPT) 38 U/L (0-50); AST (SGOT) 59 U/L (17-59); Albumin 2.9 g/dl (3.5-5.0); Alkaline Phosphatase 71 U/L (38-126); Blood Urea Nitrogen 14 mg/dl (9-20); Calcium 7.4 mg/dl (8.4-10.2); Carbon Dioxide 27 mmol/L (22-30); Chloride 102 mmol/L (98-107); Estimated Creatinine Clearance > 125 ml/min; Glucose 106 mg/dl (70-99); Magnesium 1.8 mg/dl (1.6-2.3); Phosphorus 3.9 mg/dl (2.5-4.5); Potassium 3.8 mmol/L (3.5-5.1); Sodium 136 mmol/L (135-145); Total Bilirubin 1.4 mg/dl (0.2-1.3); Total Protein 5.3 g/dl (6.3-8.2); eGFR > 60.00
[2024-03-29 04:16] LABS: NT-proBNP 1680 pg/ml
[2024-03-29 04:28] LABS: B.E. 4.2 mmol/L; HCO3 29.2 mmol/L (21-28); O2 Saturation % 99.4 % (94-98); PCO2 45 mmHg (35-48); PO2 106 mmHg (83-108); pH 7.42 (7.35-7.45)
[2024-03-29] MEDS: LOPRESSOR 25 MG TUBE ×3 (06:02→16:56)
--- NOTE | 2024-03-29 06:53 | W.PN.HOSP.TC ---
Addendum entered and electronically signed by Makayla Davis MD 03/29/24 12:23:
I saw and evaluated the patient. I reviewed the resident�s note and agree with findings and plan as documented in the resident�s note.
A/P:
# Severe alcohol use disorder w/ possible withdrawal seizure
Currently intubated with sedation
Weaned off propofol, replaced with Precedex gtt
Cont fentanyl gtt
started PO Seroquel for agitation, cont
Off brivaracetam, Continue phenobarbital
neuro on board
MSAS protocol when extubated
# Cardiac Arrest s/p CPR on 03/24
Intubated for airway protection
Vent and sedation per Scanner Supervisor
CT head no acute intracranial abnormality
EEG not reliable with sedation, showed diffuse cortical dysfunction without focal abnormality or seizures
Noted persistent fever, repeat CT head ruled out ischemic brain injury
# sepsis, now felt 2/2 COVID infection
CXR noted new mild right upper lobe airspace disease. Follow up CXR 03/27: Suspected small bilateral pleural effusions. Left lower lobe airspace disease may also be present.
CT Chest with moderate bibasilar consolidation.
procal 0.48 -> 0.2
Sputum culture with usual Respiratory Michelle
Off empiric Abx Zosyn
Started RemD and IV Decadron 03/29
Appreciate ID input
# Elevated troponin, likely related to cardiac arrest
# lactic acidosis, resolved
trop peaked at 0.375
Echo noted moderately reduced EF 30-35%. The ventricle is globally hypokinetic. Diastolic function indeterminate.
Metoprolol 25 mg Q6H for rate control of AFib
Eliquis on hold
Card on board
# Acute HFrEF
Cont IV lasix 40 mg daily
Lopressor 25 mg q6 per cardiology.
# Upper GI Bleed with melena
Holding [employer] Eliquis
s/p 1u pRBCs transfusion
Follow Hgb, today at 7.8
Continue Protonix IV twice daily
GI on board
# Elevated LFT, likely due to cardiac arrest in setting of alcohol abuse/fatty liver, improving
Abd US: hepatic fatty infiltration
CT AP largely unrevealing
Follow LFT
# Concurrent Epistaxis
s/p TXA & cauterization by ENT
No signs of active bleeding on exam
Packing per ENT
Augmentin 500mg tube bid prophylaxis until nasal packing removed
# Hyponatremia likely due to alcohol abuse, resolved
sodium level 123 on admission, today at 136
cont to follow
# Asthma
# Likely underlying sleep apnea
Outpatient sleep study when extubated and clinically stable
# Bipolar Disorder
per mother, patient was on Lexapro but stopped on his own due to weight gain
Consider Psych CS when extubated and clinically more stable
# Hypokalemia
repleted
Diet - tube feed
DVT Ppx - SCDs
GI Ppx - Protonix 40 BID IV
Code Status - Full Code
DW RN
DW mother at bedside
CC Mx 40 min
Original Note:
Today's Communication/Plan
-
COVID +, c/w abx for aspiration pneumonia, continue to wean sedation/ventilation per project surveyor team. Pending blood/sputum cultures. Appreciate integration of care teams for this patient.
Assessment / Plan
Assessment / Plan
38 year old male
#COVID-19 - covid + w/ persistent fevers.
#Aspiration Pneumonia, likely prior to admission and worsened since admission - CXR since admissions progressed, with most recent showing small R and small-moderate L pleural effusions w/ associated atelectasis and/or pneumonia. Switched to IV Zosyn
following persistent fevers. Blood and sputum cultures drawn; NGTD x 24hrs. COVID/Flu negative.
- ID following.
#Vtach Cardiac Arrest w/ CPR
- CXR did not show any osseous abnormalities. TTM not initiated due to UGI bleed. Weaned off pressure supports. Head CT showed atrophy and EEG showed diffuse cortical dysfunction without focal abnormality and no seizure activity.
- Currently sedated, on precedex ggt & fentanyl ggt, utilizing seroquel to attempt to wean precedex, however patient is still violent/aggressive.
- Weaning of sedation and ventilation per project surveyor team
#Alcohol Use Disorder w/ possible withdrawal seizure
- MSAS protocol. Getting thiamine and Folic acid. Ativan per protocol, however patient currently sedated. Will be mindful of possible withdrawal as he is weaned off sedation. Attempts to wean thus far have resulted in myoclonic movements; uncertain
if withdrawal seizures or hypoxic brain injury. Added Phenobarb for seizure control.
- Neuro following.
#Persistent Afib - ECG showing afib w/ rate control on lopressor 25mg q6 via tubes. Cardiology following.
#Fevers, likely infectious, possibly multifactorial- may be related to worsening aspiration pneumonia, antibiotics changed to Zosyn for broader coverage; blood/sputum cx pending. Possible drug reaction to precedex, although patient is now COVID pos.
#Upper GI Bleed w/ Epistaxis
#Acute blood loss anemia
- patient's last dose Eliquis Friday morning; stopped himself due to bleeding. S/p 1u pRBCs. Will continue to monitor H&H. Transfuse if hgb <7.
- s/p TXA & cauterization for epistaxis. No signs of active bleeding on exam, monitoring hgb as above.
- Abd ultrasound showing Hepatic fatty infiltration;
- c/w IV protonix per GI.
#Hyponatremia (resolved) - Up to 132 this AM. Off fluids. Assess volume status and replete as needed.
#Elevated Glucose - initiated LDISS for glucose management
#Hyperbilirubinemia - elevated since admission, possible component of hemolysis vs. Gilbert's Disease
#Transaminitis, likely alcoholic fatty liver, possible compounding shock liver (resolved) - Elevated AST/ALT on admission 2:1. history of alcohol use and obesity, possible chronic elevation from fatty liver vs. shock liver. Will continue to monitor.
AST/ALT normalized.
#HFrEF - Lopressor 25q6 per cardiology. Echo showing EF of 30-35% with global hypokinesis w/ small pericardial effusion. Continue w/ gentle diuresis.
#Lactic Acidemia (resolved) - was elevated immediately post cardiac arrest, has come back down to normal. Blood gas showed metabolic acidosis without respiratory compensation; now normal pH.
#Elevated troponins (resolved)- peaked, likely secondary to cardiac arrest.
#Asthma - per mother at bedside patient has been using his inhaler more frequently for night time shortness of breath. 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 sleep apnea vs. worsening Asthma, however history uncertain. Will continue to observe.
patient currently intubated, will reassess when medically stable.
#Bipolar Disorder - patient was on Lexapro but stopped on his own due to weight gain (obtained from mother at bedside). Presently patient is sedated, can consider psych consult in the future depending on patient status.
Diet - NPO
DVT Ppx - SCDs
GI Ppx - Protonix 40 BID IV
Code Status - Full Code
Anticipated Discharge: > 48 hours
Subjective/Interval History
-
When attempting to wean, patient becomes purposefully aggressive, giving people the finger and kicking nurses. He is reportedly able to follow some commands, but is overall violent.
Objective Data
-
Labs:
Laboratory Results
03/29/24 03/29/24
03:19 04:12
WBC 5.2
Hgb 7.8 L
Hct 24.4 L
Plt Count 171 D
HCO3 29.2 H
Sodium 136
Potassium 3.8
Chloride 102
Carbon Dioxide 27
BUN 14
Creatinine 0.7
Glucose 106 H
Calcium 7.4 L
Total Bilirubin 1.4 H
AST 59
ALT 38
Alkaline Phosphatase 71
Vital Signs:
Vital Signs
Temp Pulse Resp BP Pulse Ox
101.2 F H 106 17 108/91 100
03/29/24 03:30 03/29/24 06:30 03/29/24 06:30 03/29/24 06:02 03/29/24 06:30
I&O
03/27/24 03/28/24 03/29/24
06:59 06:59 06:59
Intake Total 3264.8 / 3391.9 2893.9 / 3010.7 2890.7 / 2890.7
Output Total 1974 2910 / 2910 4480 / 4480
Balance 1289.8 / 1376.9 -16.1 / 100.7 -1589.3 / -1589.3
Review of Systems
-
Unable to obtain full review of systems at this time due to: Patient Intubation
Physical Exam
-
General: Well Developed, Well Nourished, Intubated, Appears Chronically Ill and Morbidly Obese
HEENT: Normocephalic, Atraumatic, Moist Mucous Membranes, Symonds Conjunctivae and Ears Appear Normal; Negative Nose Appears Normal (Nasal packing in R nostrol w/ dried blood. No signs of active bleeding.)
Respiratory: Crackles (BL crackles) and Other (Mechanical Ventillation ); Negative Wheezes
Cardiac: S1/S2 and Irregular Rhythm; Negative Murmur or Tachycardic
Breast: N/A
GI: Soft, Nontender, Nondistended and Normal Bowel Sounds
Rectal: Deferred by Provider
Genito-urinary: Clear Urine and Muniz
Musculoskeletal: No Clubbing, No Cyanosis and No Edema
Skin: IV Access / Catheter Site
Neuro: Sedated; Negative Awake or Alert
[2024-03-29] MEDS: DUONEB 3 ML INH ×4 (07:12→20:30)
[2024-03-29] MEDS: FLOVENT 220 MCG INHALER 2 PUFF INH (07:12)
[2024-03-29] MEDS: PROTONIX IV 40 MG IV ×2 (07:55→20:03)
[2024-03-29] MEDS: LOVENOX 40 MG SC ×2 (07:55→20:04)
[2024-03-29] MEDS: FOLVITE 1 MG PO (07:55)
[2024-03-29] MEDS: SEROQUEL 100 MG TUBE ×2 (07:55→20:04)
[2024-03-29] MEDS: NSS (PRESERVATIVE FREE) 10 ML IV ×2 (07:55→20:03)
[2024-03-29] MEDS: LASIX 40 MG IV (07:55)
[2024-03-29] MEDS: LUMINAL 32.4 MG PO ×3 (07:55→21:59)
[2024-03-29] MEDS: VITAMIN B1 100 MG PO ×2 (07:55→20:04)
--- NOTE | 2024-03-29 07:55 | W.PN.INTV ---
Addendum entered and electronically signed by Ryan Santiago MD 03/29/24 15:47:
Bilateral upper extremity Dopplers completed
There is occlusive thrombus in the left basilic vein on the left upper extremity between the shoulder and antecubital fossa
Right side is negative
Discontinue IV on the left upper extremity
Follow clinically
Original Note:
Today's Communication / Plan
Recommendations
Decrease minute ventilation
Continue sedation
Decrease Ativan dosing
Advance bowel regimen, hold tube feeds for now
Follow-up for bowel movement
Continue Augmentin, remdesivir per ID
Remains on Decadron for COVID
follow fevers
Assessment
-
Assessment: 38-year-old male non-smoker with a past medical history of persistent A-fib on Eliquis, bipolar affective disorder, asthma, and hypertension who presented with vomiting blood 1 day prior to arrival with dark stools as well as a
nosebleed. He has been having fatigue, shortness of breath and confusion with chest pain. He is normally on Eliquis but he has been holding it for few days due to his bleeding. He does follow-up with cardiology with last visit on 02/17/[address] Phillips. He has a history of nonischemic cardiomyopathy with prior EF of 20-25% with global hypokinesis from echo in December 2023. He was discussing getting an ablation for his A-fib. He has a history of cardioversion x 2 with failure to
restore into sinus rhythm. Also it has been difficult to choose an antiarrhythmic drug in the setting of his lithium drug use with risk of QT prolongation. In the ER he told the doctor he has been having a bloody nose which started on the day of
ER arrival, and has been vomiting bright red blood with dark tarry stools for 1 week. Last dose of Eliquis was on Friday (03/21/2024). In the ER he was afebrile to 97.1 �F, pulse rate 97, breathing at 20 breaths/minute, BP 129/83 and saturating 98%
on room air. Initial labs showed Hb 8.9, platelet count 115, sodium 123, chloride 87, BUN 33, serum osmolarity 302, and urinalysis negative for signs of UTI. Initial CXR showed suspected small right pleural effusion with possible pneumonia in the
right middle lobe. He was initially admitted to the IMU for a GI bleed with epistaxis. Overnight he was agitated and required Precedex drip so was transferred to the ICU, and developed a cardiac arrest while trying to get up out of bed. He was
labeled DNR however when the ICU RECEIVER/LABORER call the family this was reversed, and CPR/ACLS was initiated. He was given an amp of epinephrine and pulse was regained and then he became bradycardic and lost pulse again. CPR resumed and given 2 A of epi and
patient was intubated. ROSC regained. Due to his prearrest seizure-like activity, neurology was called and empiric Keppra was given. TTM was not started given his acute upper GI bleed and epistaxis. He has continued to be managed in the ICU and
manual lathe machinist services consulted for additional management/recommendations.
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
Impression:
#Hemorrhagic shock - shock state now resolved
#In-hospital cardiac arrest with preceding seizure-like activity (withdrawal seizure vs myoclonic jerks)
#Acute blood loss anemia due to reported epistaxis and UGIB with hematemesis
#Acute respiratory failure with hypoxia now on mechanical ventilation (intubated 03/24/2024)
#RUL + bilateral lower lobe pneumonia (confirmed on CT Chest from 03/24/2024)
#Acute thrombocytopenia
#Alcoholism with use of alcohol use drinking vodka daily as well as wine
#Suspected alcohol withdrawal seizure
#History of anxiety
#Metabolic acidosis with increased anion gap + respiratory acidosis - acidosis now resolved
#Lactic acidosis � now resolved
#Hypochloremic, hyponatremia � now resolved
#Hyperglycemia � now resolved
#Transaminitis with hyperbilirubinemia
#Elevated troponin likely due to cardiac arrest
#Chronic HFrEF with RV dysfunction seen on TTE from 03/24/2024
Plan/recommendations:
At this time, patient remains critically ill
Persistent fevers noted
CT chest 03/28/2024 with bibasilar consolidation, possible pneumonia left greater than right
Remains on volume-cycled ventilation
ABG 7.42/45/106
Moving forward
Continue with volume-cycled relation
Decrease rate to 14
Presently peak pressure 34, plateau pressure pressure 29
Repeat ABG in a.m.
AC 14/450/5/40%
May require increase in the PEEP given CT chest findings to help with basilar recruitment. Follow for now
Fentanyl, Precedex continues
Also on propofol
Decrease Ativan to 1 mg as needed
Wean Precedex as able
Continue DuoNebs, Flovent. Patient with history of asthma
Patient presented with bloody emesis, dark stool
Tolerating tube feeds
Will hold tube feeds for now given lack of bowel movement
Optimize bowel regimen
Abdominal x-ray unremarkable
Reassess in the next 24 hours
ID following
Patient remains on Augmentin, recent episode of epistaxis noted, nasal packing in place
Was on Zosyn
Remdesivir continues
Zosyn has been discontinued
Follow temperatures
Also on Decadron 6 mg every 24 hours
No significant hypoxia at this time. Will follow
Patient with significant intermittent agitation
Head CT without acute findings
Patient with episode of PEA, seizure activity
Neurology was following, EEG without evidence of seizures
Remains on phenobarbital, per neuro recommendations
Continue with folic acid, thiamine
History of alcohol abuse noted
Remains on Seroquel, 100 mg twice a day
EKG 11/26, atrial fibrillation, QTc 413
Lasix therapy continues, beta-kevin noted
Eliquis remains on hold, last dose 03/21. Significant epistaxis noted
Required transfusion 03/23
ENT also following
Follow blood sugars
Patient with bloody emesis and tarry stool prior to admission
Hemoglobin stable at 7.8, transfuse 1 unit 03/23
Abdominal ultrasound with hepatic infiltration, no evidence of cirrhosis
GI following, last seen 03/25, signed off
Recommended to continue pantoprazole twice daily
EGD was not pursued
GI prophylaxis: On pantoprazole
DVT prophylaxis: Lovenox 40 mg every 12 hours
Follow electrolytes
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
GI prophylaxis: Remains on Protonix twice daily
Critical care statement: A total of 35 minutes of critical care time was provided for this patient today. This includes management of unstable vital signs, evaluation of the patient at bedside, reviewing the patient's pertinent medical records
including radiographs, microbiology, laboratory evaluations, and discussion with primary team, consultants, pharmacy, nutrition, physical therapy, case management, charge nurse, critical care nursing, and respiratory therapy.
Data:
CXR 03/24/2024:
New mild right upper lobe airspace disease concerning for developing pneumonia.
Possible developing pneumonia in the right costophrenic angle versus atelectasis. Progressed. Mild.
Tiny right pleural effusion. Progressed.
Cardiomegaly. Stable.
CXR 03/27/2024:
1. Moderate cardiomegaly. Mild pulmonary edema.
2. Suspected small bilateral pleural effusions. Left lower lobe airspace disease may also be present.
CXR 03/28/2024: Mild to moderate CHF, slightly progressed. Small right and [id number] left pleural effusions with associated atelectasis and/or pneumonia, progressed.
CT chest/abdomen/pelvis without contrast 03/24/2024:
Moderate bibasilar consolidation. This may represent atelectasis or pneumonia.
Bilateral lower lobe, lingular and right upper lobe atelectasis versus scarring.
Small pericardial effusion.
Findings suggesting mild volume overload or third spacing.
Minimal diverticulosis.
Subjective Dataa
Subjective Data
Date of Service:
Date of Service: March 29, 2024
Chief Complaint: Pt Skilled Follow Up
Subjective:
Patient remains critically ill. Intermittent agitation noted, kicking staff at times. Mother at bedside
Objective Data
Data Reviewed
Vital Signs / I&O / Oxygen:
Vital Signs
Temp Pulse Resp BP Pulse Ox
101.2 F H 100 18 108/91 100
03/29/24 03:30 03/29/24 07:20 03/29/24 07:20 03/29/24 06:02 03/29/24 07:21
Intake and Output
03/28/24 03/29/24 03/30/24
06:59 06:59 06:59
Intake Total 2893.9 / 3010.7 2890.7 / 2890.7
Output Total 2910 / 2910 4480 / 4480
Balance -16.1 / 100.7 -1589.3 / -1589.3
SaO2 [CPAP/PSV] 100
SaO2 [A/C] 99
SaO2 100
Physical Exam
General: Comfortable
HEENT: Normocephalic, Anicteric, Other (Thick neck) and Other (ETT in place)
Cardiovascular: S1-S2, Regular Rhythm, Murmur (n), Rub (n) and Peripheral Edema (Trace lower extremity edema bilaterally)
Respiratory: Wheeze (negative), Crackles (few), Rhonchi (negative), Non-Labored Respirations and ET Tube (Mechanical breath sounds heard bilaterally)
GI: Soft, Distended (Abdominal obesity), Non Tender and Normal Bowel Sounds
Neurology: Lethargic (Sedated) and Other
Skin: Warm, Dry, Cyanosis (negative), Jaundice (negative) and Rash (negative)
Labs/Micro/Reports
Lab Data
03/29/24 03:19
03/29/24 03:19
Laboratory Results
03/29/24
04:12
pH 7.42
pCO2 45
pO2 106
HCO3 29.2 H
O2 Delivery Level
Microbiology
03/28/24 15:21 Nasal Swab Influenza Types A & B (TAYE) - Final
Negative for Influenza A & B, NAAT
Negative results must be combined with clinical observations
and patient history.
Nucleic Acid Amplification test (NAAT)performed on the
[employer] platform.
03/27/24 17:30 Sputum Gram Stain - Preliminary
03/27/24 09:01 Blood/Venous Blood Culture - Preliminary
No Growth in 24 hours- Final report to follow
03/27/24 09:01 Blood/Venous Blood Culture - Preliminary
No Growth in 24 hours- Final report to follow
03/25/24 13:46 Endotracheal Respiratory Culture - Final
Usual Respiratory Michelle
03/25/24 13:46 Endotracheal Gram Stain - Final
03/26/24 03:45 Urine Legionella Urinary Antigen - Final
Negative for Legionella pneumophila Serogroup 1 antigen.
A negative result does not rule out the possiblity of
Legionella infection due to other serogroups or species of
Legionella. Clinical correlation is recommended.
03/26/24 03:45 Urine Streptococcus pneumoniae Antigen (M - Final
Negative for Streptococcus pneumoniae antigen.
A negative result does not exclude infection with
Streptococcus pneumoniae. Clinical correlation is
recommended.
[2024-03-29] MEDS: MIRALAX 17 GRAMS TUBE (07:56)
[2024-03-29 08:30] LABS: Absolute Neutrophils -Man Diff 2.8 10^3/uL (1.4-6.5); Anisocytosis 1+; Band Neutrophils 1 % (0-3); Eosinophils 5 % (0-6); Hypochromasia 1+; Lymphocytes 19 % (20-51); Monocytes 20 % (2-9); Normal RBC Morphology No; Ovalocytes 1+; Platelets Checked Yes; Polychromasia 1+; Segmented Neutrophils 54 % (42-75)
[2024-03-29 08:31] LABS: Total Cells Counted 100
[2024-03-29] MEDS: SUBLIMAZE 50 MCG IV ×2 (09:35→10:09)
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
--- NOTE | 2024-03-29 10:32 | W.PN.ID1 ---
Date of Service
Date of Service: March 29, 2024
Today's Communication
See below.
Assessment / Plan
# COVID infection
03/28/24 COVID ag positive
Unvaccinated
COVID PNA
# VDRF
# Fever persists
# s/p UGI bleed/hematemesis
# s/p blood loss anemia
# Epistaxis - packing in place
# Alcohol withdrawal
# s/p PEA cardiac arrest
# Acute on chronic CHF, procalcitonin >2000
Plan:
- Started Remdesivir for COVID, day 1
- Sputum resp yvette. Procal <0.25. DC Zosyn
- Fever due to COVID, less likely ffrom Precedex
- Follow temps.
-COVID isolation. Informed pt's mom and sister should test themselves.
- Augmentin 500mg tube bid prophylaxis until nasal packing removed
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
Afib on Eliquis
HTN
HFrEF
anxiety
bipolar disorder
Substance abuse in the past
ETOH abuse
Robotic asst lap LACY umbilical/ventral hernia repair w mesh (04/18/2022)
Chief Complaint
-: Fever
Subjective / Review of Systems
Mother at bedside.
Patient awake on vent.
Vital Signs / Physical Exam
Vital Signs
Vital Signs
Temp Pulse Resp BP Pulse Ox
101.2 F H 88 14 124/78 98
03/29/24 09:41 03/29/24 09:00 03/29/24 09:00 03/29/24 09:00 03/29/24 09:00
Physical Exam
Constitutional: Acutely Ill
Eyes: Sclera Anicteric
Cardiovascular: Regular Rate and S1/S2
Pulmonary: Clear (anteriorly)
Gastrointestinal: Soft, Non Tender and Non Distended
Extremities: Negative Edema
Neurological: Awake
Objective Data
Lab Data
Lab Results
03/29/24 03:19
03/29/24 03:19
PT 15.9 Sec (11.4-14.6) H 03/25/24 04:16
INR 1.24 03/25/24 04:16
APTT 26.3 Sec (23.4-35.0) 03/24/24 03:19
Estimated Creat Clear > 125 ml/min 03/29/24 03:19
Lactic Acid 1.1 mmol/L (0.7-2.0) 03/24/24 09:25
Total Bilirubin 1.4 mg/dl (0.2-1.3) H 03/29/24 03:19
AST 59 U/L (17-59) 03/29/24 03:19
ALT 38 U/L (0-50) 03/29/24 03:19
Alkaline Phosphatase 71 U/L (38-126) 03/29/24 03:19
Most recent labs reviewed.
Micro Results:
03/27/24 09:01 Blood Culture - Preliminary
Blood/Venous No Growth in 48 hours- Final report to follow
03/27/24 09:01 Blood Culture - Preliminary
Blood/Venous No Growth in 48 hours- Final report to follow
03/27/24 17:30 Respiratory Culture - Preliminary
Sputum Usual Respiratory Yvette
Gram Stain - Preliminary
03/28/24 15:21 Influenza Types A & B (TAYE) - Final
Nasal Swab Negative for Influenza A & B, NAAT
Negative results must be combined with clinical observations
and patient history.
Nucleic Acid Amplification test (NAAT)performed on the
[employer] platform.
03/25/24 13:46 Respiratory Culture - Final
Endotracheal Usual Respiratory Yvette
Gram Stain - Final
03/26/24 03:45 Legionella Urinary Antigen - Final
Urine Negative for Legionella pneumophila Serogroup 1 antigen.
A negative result does not rule out the possiblity of
Legionella infection due to other serogroups or species of
Legionella. Clinical correlation is recommended.
Streptococcus pneumoniae Antigen (M - Final
Negative for Streptococcus pneumoniae antigen.
A negative result does not exclude infection with
Streptococcus pneumoniae. Clinical correlation is
recommended.
03/24/24 17:54 Legionella Urinary Antigen - Final
Urine Negative for Legionella pneumophila Serogroup 1 antigen.
A negative result does not rule out the possiblity of
Legionella infection due to other serogroups or species of
Legionella. Clinical correlation is recommended.
Streptococcus pneumoniae Antigen (M - Final
Negative for Streptococcus pneumoniae antigen.
A negative result does not exclude infection with
Streptococcus pneumoniae. Clinical correlation is
recommended.
03/28/24 CXR: Mild to moderate CHF, slightly progressed. Small right and [id number] left pleural effusions with associated atelectasis and/or pneumonia, progressed.
03/27/24 CXR: Moderate cardiomegaly. Mild pulmonary edema. Suspected small bilateral pleural effusions. Left lower lobe airspace disease may also be present.
03/27/24 AXR: Nonspecific bowel gas pattern without signs of obstruction.
03/24/24 CT a/p: Moderate bibasilar consolidation. This may represent atelectasis or pneumonia. Bilateral lower lobe, lingular and right upper lobe atelectasis versus scarring. Small pericardial effusion. Findings suggesting mild volume overload or
third spacing.
[2024-03-29] MEDS: ATIVAN 2 MG IV (10:58)
[2024-03-29] MEDS: DECADRON 6 MG IV (11:25)
[2024-03-29] MEDS: AUGMENTIN 250 MG/5 ML 500 MG TUBE ×2 (11:26→20:15)
[2024-03-29] MEDS: VEKLURY 250 MG IV (11:27)
[2024-03-29] MEDS: DIPRIVAN 100 IV (12:21)
[2024-03-29 12:28] LABS: Glucose - Point of Care 98 mg/dl (70-99)
--- NOTE | 2024-03-29 12:30 | W.PN.UPDATE ---
Update Note
Progress Note Update
Epistaxis
Pt remains intubated
No noted nasal bleeding
Packing removed
No active bleeding or bleeding site noted in ant nasal cavity
Contact again if needed
--- NOTE | 2024-03-29 12:32 | PTCARENOTE ---
Attempted to wean precedex. Pt increasingly agitated. Fentanyl titrated up per protocol. PRN Ativan given. Propofol started.
Afib HR 80-90s.
SpO2 96-100% on A/C 18/450/5/40%. Frequent alarms when agitated (stacking breaths, high PIPs)
Tube feeds held per MD d/t high residual and no BM since admission.
Good urine output via murguia (see I&Os)
All other assessments unchanged.
Mother at bedside.
[2024-03-29] MEDS: ATIVAN 1 MG IV ×2 (15:07→20:04)
--- NOTE | 2024-03-29 15:45 | CM ---
CM following re: discharge planning.
Reviewed pt's chart, met with pt's mother.
Per Rounds meeting, pt remains intubated, COVID+, continue supportive care.
D/C plan: uncertain at this time and will depend on pt's progress.
CM will follow with discharge plan updates as hospitalization progresses
[2024-03-29 18:38] LABS: Glucose - Point of Care 140 mg/dl (70-99)
--- NOTE | 2024-03-29 19:37 | PTCARENOTE ---
Pt appears less agitated. Propofol at 5mcg/kg/min. Weaning Precedex down. Core temp 98. Remains on Fentanyl gtt. PRN Ativan per order.
No BM. Abd soft, +bowel sounds. Tube feeds restarted.
All other assessments unchanged.
[2024-03-29] MEDS: SENOKOT-S 1 TABLET PO (20:03)
[2024-03-29] MEDS: FLOVENT 220 MCG INHALER 4 PUFF INH (20:30)
[2024-03-29 23:40] LABS: Glucose - Point of Care 130 mg/dl (70-99)
[2024-03-30] VITALS (26 sets, daily range): BP systolic 101–134; BP diastolic 69–109; BMI 38.9
--- NOTE | 2024-03-30 00:15 | PTCARENOTE ---
Pt agitated, swinging at nurses, unable to be verbally redirected. Propofol titrated for safety/comfort. 4 point restraints as ordered. Afebrile. Controlled AFib. Drips titrated to clinical endpoints. Vent settings as ordered. tolerating tube feeds
at current rate. Awaiting BM. Muniz draining clear yellow urine. Will monitor.
[2024-03-30] MEDS: LOPRESSOR 25 MG TUBE ×5 (01:00→23:04)
[2024-03-30] MEDS: NSS (PRESERVATIVE FREE) 1 ML IV (03:31)
[2024-03-30] MEDS: ATIVAN 1 MG IV ×2 (03:31→10:13)
[2024-03-30] MEDS: SUBLIMAZE 100 IV ×4 (03:41→20:56)
--- NOTE | 2024-03-30 04:00 | PTCARENOTE ---
AM care provided. Labs sent and resulted. Pt kept sedated overnight 2/2 aggression/safety. Restraints maintained. Tolerating tube feeds. FMS inserted. Will monitor.
[2024-03-30 04:13] LABS: % Basophils 0.7 % (0-2); % Eosinophils 0.2 % (0-6); % Immature Granulocytes 1.3 % (0-0.5); % Lymphocytes 9.7 % (20.5-51.1); % Monocytes 16.7 % (1.7-9.3); % Neutrophils 71.4 % (42.2-75.2); Absolute Immature Granulocytes 0.1 10^3/uL (0-0.05); Absolute Lymphocytes 0.4 10^3/uL (1.2-3.4); Absolute Monocytes 0.8 10^3/uL (0.1-0.6); Absolute Neutrophils 3.3 10^3/uL (1.4-6.5); Hematocrit 25.7 % (39.0-52.0); Hemoglobin 8.3 g/dL (13.0-18.0); Mean Corp Hgb Conc. 32.3 g/dL (33.0-37.0); Mean Corpuscular Hgb 29.4 pg (27.0-31.0); Mean Corpuscular Volume 91.1 fL (80.0-94.0); Mean Platelet Volume 10.4 fL (7.4-10.4); Nucleated Red Blood Cells % 0 % (-); Platelet Count 239 10^3/uL (130-400); Red Blood Cell Count 2.82 10^6/uL (4.70-6.10); Red Cell Dist. Width 14.8 % (11.5-14.5); White Blood Cell Count 4.6 10^3/uL (4.8-10.8)
[2024-03-30 04:30] LABS: ALT (SGPT) 35 U/L (0-50); AST (SGOT) 50 U/L (17-59); Albumin 3.1 g/dl (3.5-5.0); Alkaline Phosphatase 78 U/L (38-126); Blood Urea Nitrogen 14 mg/dl (9-20); Calcium 7.8 mg/dl (8.4-10.2); Carbon Dioxide 30 mmol/L (22-30); Chloride 100 mmol/L (98-107); Estimated Creatinine Clearance > 125 ml/min; Glucose 122 mg/dl (70-99); Potassium 4.7 mmol/L (3.5-5.1); Sodium 137 mmol/L (135-145); Total Bilirubin 1.2 mg/dl (0.2-1.3); Total Protein 5.5 g/dl (6.3-8.2); Triglycerides 121 mg/dl (10-149); eGFR > 60.00
[2024-03-30 05:53] LABS: Glucose - Point of Care 135 mg/dl (70-99)
--- NOTE | 2024-03-30 06:16 | W.PN.HOSP.TC ---
Addendum entered and electronically signed by Elis Tracy MD 03/30/24 17:58:
I saw and evaluated the patient independently. I reviewed the resident�s note and agree with findings and plan as documented by Dr. Reese.
GENERAL: well developed, well nourished, male in no apparent distress
HEENT: NC/AT intubated--OG tube
HEART:irreg irreg, tachycardic
LUNGS : clear to auscultation bilaterally
ABDOM: soft, nontender, nondistended, + bowel sounds--rectal tube
EXT: no cyanosis, clubbing, or edema
NEUROLOGIC: intubated and sedated
Sepsis, likely secondary to COVID-19 Infection - Febrile for several days without white count, initially thought propofol rxn vs. bacterial infection, however repeat covid test on 03/28/24 positive. Added Remdesivir + Decadron, stopped zosyn.
Hypothermic 96.6, tachycardic 102, source of infection COVID 19. Patient is on mechanical ventilation, receiving antivirals and steroids--apprec reproduction artist
Superficial Venous Thrombus - swelling in L arm near peripheral line, US confirmed L basilic vein thrombosis. Line removed. Will observe.
Aspiration Pneumonia, likely prior to admission and worsened since admission - CXR since admissions progressed, with most recent showing small R and small-moderate L pleural effusions w/ associated atelectasis and/or pneumonia--Blood cx NGTD x
48hrs, sputum cx showing usual yvette. COVID/Flu on admission negative--apprec ID
Vtach Cardiac Arrest w/ CPR-- CXR did not show any osseous abnormalities. TTM not initiated due to UGI bleed. Weaned off pressure supports. Head CT showed atrophy and EEG showed diffuse cortical dysfunction without focal abnormality and no seizure
activity--- Currently sedated, on propofol ggt & fentanyl ggt, BID seroquel however patient is still violent/aggressive when attempting to wean--- Weaning of sedation and ventilation per reproduction artist team--apprec cards
Alcohol Use Disorder w/ possible withdrawal seizure-- MSAS protocol. Getting thiamine and Folic acid, Ativan per protocol, however patient currently sedated. Will be mindful of possible withdrawal as he is weaned off sedation. Attempts to wean thus
far have resulted in myoclonic movements; more likely withdrawal seizures vs hypoxic brain injury as head CTs show no signs of cerebral edema. On Phenobarb for seizure control--apprec neuro--if needed, will consult psych for alternative meds to help
with agitation while being weaned
Persistent Afib - ECG showing afib w/ rate control on lopressor 25mg q6 via tubes. Cardiology following.
Upper GI Bleed w/ Epistaxis resulting in Acute blood loss anemia - patient's last dose Eliquis Friday03/28/24 morning; stopped himself due to bleeding. S/p 1u pRBCs. Will continue to monitor H&H. Transfuse if hgb <7- s/p TXA & cauterization for
epistaxis. No signs of active bleeding on exam, monitoring hgb as above- Abd ultrasound showing Hepatic fatty infiltration- c/w IV protonix per GI--apprec GI/ENT
acute on chronic HFrEF - Lopressor 25q6 per cardiology. Echo showing EF of 30-35% with global hypokinesis w/ small pericardial effusion. Continue w/ gentle diuresis.
Hyperglycemia - initiated LD ISS for glucose management
Hyponatremia (resolved) - Up to 132 this AM. Off fluids. Assess volume status and replete as needed.
Hyperbilirubinemia (resolved) - elevated since admission, possible component of hemolysis vs. Gilbert's Disease. Resolved now.
Transaminitis, likely alcoholic fatty liver, possible compounding shock liver (resolved) - Elevated AST/ALT on admission 2:1. history of alcohol use and obesity, possible chronic elevation from fatty liver vs. shock liver. Will continue to monitor.
AST/ALT normalized.
Lactic Acidosis (resolved) - was elevated immediately post cardiac arrest, has come back down to normal. Blood gas showed metabolic acidosis without respiratory compensation; now normal pH.
Elevated troponins (resolved)- peaked, likely secondary to cardiac arrest.
Asthma - per mother at bedside patient has been using his inhaler more frequently for night time shortness of breath. 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 sleep apnea vs. worsening Asthma, however history uncertain. Will continue to observe.
patient currently intubated, will reassess when medically stable.
Bipolar Disorder - patient was on Lexapro but stopped on his own due to weight gain (obtained from mother at bedside). Presently patient is sedated, can consider psych consult in the future depending on patient status.
DVT Proph - SCDs
Code Status - Full Code
Total Critical Care Time 30 minutes. I was immediately available to the patient and staff. I personally examined, reviewed labs, diagnostic images/reports, interpretations, treatment plans, discussed patient care with other providers and family
or caregivers (if patient is unable to make decisions), entered orders as appropriate and documented the medical record.
Original Note:
Today's Communication/Plan
-
Continue to wean sedation per reproduction artist team. C/w remdesivir and decadron. Appreciate integration of care teams for this patient.
Assessment / Plan
Assessment / Plan
38 year old male
#Sepsis, likely secondary to COVID-19 Infection - Febrile for several days without white count, initially thought propofol rxn vs. bacterial infection, however repeat covid test on 03/28/24 positive. Added Remdesivir + Decadron, stopped zosyn.
Hypothermic 96.6, tachycardic 102, source of infection COVID 19. Patient is hemodynamically stable, on mechanical ventilation, receiving antivirals and steroids.
#Superficial Venous Thrombus - swelling in L arm near peripheral line, US confirmed L basilic vein thrombosis. Line removed. Will observe.
#Aspiration Pneumonia, likely prior to admission and worsened since admission - CXR since admissions progressed, with most recent showing small R and small-moderate L pleural effusions w/ associated atelectasis and/or pneumonia.
Blood cx NGTD x 48hrs, sputum cx showing usual yvette. COVID/Flu on admission negative.
-ID following.
#Vtach Cardiac Arrest w/ CPR
- CXR did not show any osseous abnormalities. TTM not initiated due to UGI bleed. Weaned off pressure supports. Head CT showed atrophy and EEG showed diffuse cortical dysfunction without focal abnormality and no seizure activity.
- Currently sedated, on propofol ggt & fentanyl ggt, BID seroquel however patient is still violent/aggressive when attempting to wean.
- Weaning of sedation and ventilation per reproduction artist team
#Alcohol Use Disorder w/ possible withdrawal seizure
- MSAS protocol. Getting thiamine and Folic acid, Ativan per protocol, however patient currently sedated. Will be mindful of possible withdrawal as he is weaned off sedation. Attempts to wean thus far have resulted in myoclonic movements; more
likely withdrawal seizures vs hypoxic brain injury as head CTs show no signs of cerebral edema. On Phenobarb for seizure control.
- Neuro following.
#Persistent Afib - ECG showing afib w/ rate control on lopressor 25mg q6 via tubes. Cardiology following.
#Upper GI Bleed w/ Epistaxis
#Acute blood loss anemia
- patient's last dose Eliquis Friday morning; stopped himself due to bleeding. S/p 1u pRBCs. Will continue to monitor H&H. Transfuse if hgb <7.
- s/p TXA & cauterization for epistaxis. No signs of active bleeding on exam, monitoring hgb as above.
- Abd ultrasound showing Hepatic fatty infiltration;
- c/w IV protonix per GI.
#HFrEF - Lopressor 25q6 per cardiology. Echo showing EF of 30-35% with global hypokinesis w/ small pericardial effusion. Continue w/ gentle diuresis.
#Elevated Glucose - initiated LDISS for glucose management
#Hyponatremia (resolved) - Up to 132 this AM. Off fluids. Assess volume status and replete as needed.
#Hyperbilirubinemia (resolved) - elevated since admission, possible component of hemolysis vs. Gilbert's Disease. Resolved now.
#Transaminitis, likely alcoholic fatty liver, possible compounding shock liver (resolved) - Elevated AST/ALT on admission 2:1. history of alcohol use and obesity, possible chronic elevation from fatty liver vs. shock liver. Will continue to monitor.
AST/ALT normalized.
#Lactic Acidemia (resolved) - was elevated immediately post cardiac arrest, has come back down to normal. Blood gas showed metabolic acidosis without respiratory compensation; now normal pH.
#Elevated troponins (resolved)- peaked, likely secondary to cardiac arrest.
#Asthma - per mother at bedside patient has been using his inhaler more frequently for night time shortness of breath. 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 sleep apnea vs. worsening Asthma, however history uncertain. Will continue to observe.
patient currently intubated, will reassess when medically stable.
#Bipolar Disorder - patient was on Lexapro but stopped on his own due to weight gain (obtained from mother at bedside). Presently patient is sedated, can consider psych consult in the future depending on patient status.
Diet - NPO
DVT Ppx - SCDs
GI Ppx - Protonix 40 BID IV
Code Status - Full Code
Anticipated Discharge: > 48 hours
Subjective/Interval History
-
Still violent and aggressive overnight as he is weaned off sedation. Back on propofol.
Objective Data
-
Labs:
Laboratory Results
03/30/24
03:24
WBC 4.6 L
Hgb 8.3 L
Hct 25.7 L
Plt Count 239 D
Sodium 137
Potassium 4.7
Chloride 100
Carbon Dioxide 30
BUN 14
Creatinine 0.6 L
Glucose 122 H
Calcium 7.8 L
Total Bilirubin 1.2
AST 50
ALT 35
Alkaline Phosphatase 78
Vital Signs:
Vital Signs
Temp Pulse Resp BP Pulse Ox
97.1 F 86 14 110/76 99
03/30/24 06:14 03/30/24 06:00 03/30/24 06:00 03/30/24 06:00 03/30/24 06:00
I&O
03/28/24 03/29/24 03/30/24
06:59 06:59 06:59
Intake Total 2893.9 / 3010.7 2890.7 / 3015.0 2463.0 / 2463.0
Output Total 2910 / 2910 4480 / 4480 4245 / 4245
Balance -16.1 / 100.7 -1589.3 / -1465.0 -1782.0 / -1782.0
Review of Systems
-
Unable to obtain full review of systems at this time due to: Patient Intubation
Physical Exam
-
General: Well Developed, Well Nourished, Intubated and Obese
HEENT: Normocephalic, Atraumatic, Moist Mucous Membranes, Anicteric and Gully Conjunctivae
Respiratory: Other (Mechanical breath sounds)
Cardiac: S1/S2 and Irregular Rhythm; Negative Murmur or Tachycardic
Breast: N/A
GI: Soft, Normal Bowel Sounds and Distended
Genito-urinary: Muniz and Other (Chrissie colored urine)
Musculoskeletal: No Clubbing, No Cyanosis and No Edema
Skin: IV Access / Catheter Site
Neuro: Sedated
[2024-03-30] MEDS: DUONEB 3 ML INH ×4 (07:07→20:22)
[2024-03-30] MEDS: FLOVENT 220 MCG INHALER 4 PUFF INH ×2 (07:08→20:23)
[2024-03-30] MEDS: DIPRIVAN 100 IV ×6 (07:55→23:04)
[2024-03-30] MEDS: PROTONIX IV 40 MG IV ×2 (07:57→20:20)
[2024-03-30] MEDS: LOVENOX 40 MG SC ×2 (07:57→20:19)
[2024-03-30] MEDS: NSS (PRESERVATIVE FREE) 10 ML IV ×2 (07:58→20:20)
[2024-03-30] MEDS: FOLVITE 1 MG PO (07:58)
[2024-03-30] MEDS: LUMINAL 32.4 MG PO ×3 (07:58→23:04)
[2024-03-30] MEDS: SEROQUEL 100 MG TUBE ×2 (07:58→20:20)
[2024-03-30] MEDS: VITAMIN B1 100 MG PO ×2 (07:58→20:20)
[2024-03-30] MEDS: LASIX 40 MG IV (08:00)
[2024-03-30] MEDS: SENOKOT-S PO (08:02)
[2024-03-30] MEDS: MIRALAX TUBE (08:02)
--- NOTE | 2024-03-30 08:26 | W.PN.INTV ---
Today's Communication / Plan
Recommendations
Unfortunate continues to be agitated with any weaning of sedation
Continue propofol, fentanyl, Ativan as needed
Maintain off Precedex
Left upper extremity DVT noted. IVs removed
Continue DVT prophylaxis
Rate control
ABG, chest x-ray in a.m.
Assessment
-
Assessment: 38-year-old male non-smoker with a past medical history of persistent A-fib on Eliquis, bipolar affective disorder, asthma, and hypertension who presented with vomiting blood 1 day prior to arrival with dark stools as well as a
nosebleed. He has been having fatigue, shortness of breath and confusion with chest pain. He is normally on Eliquis but he has been holding it for few days due to his bleeding. He does follow-up with cardiology with last visit on 02/17/[address] Phillips[address] He has a history of nonischemic cardiomyopathy with prior EF of 20-25% with global hypokinesis from echo in December 2023. He was discussing getting an ablation for his A-fib. He has a history of cardioversion x 2 with failure to
restore into sinus rhythm. Also it has been difficult to choose an antiarrhythmic drug in the setting of his lithium drug use with risk of QT prolongation. In the ER he told the doctor he has been having a bloody nose which started on the day of
ER arrival, and has been vomiting bright red blood with dark tarry stools for 1 week. Last dose of Eliquis was on Friday (03/21/2024). In the ER he was afebrile to 97.1 �F, pulse rate 97, breathing at 20 breaths/minute, BP 129/83 and saturating 98%
on room air. Initial labs showed Hb 8.9, platelet count 115, sodium 123, chloride 87, BUN 33, serum osmolarity 302, and urinalysis negative for signs of UTI. Initial CXR showed suspected small right pleural effusion with possible pneumonia in the
right middle lobe. He was initially admitted to the IMU for a GI bleed with epistaxis. Overnight he was agitated and required Precedex drip so was transferred to the ICU, and developed a cardiac arrest while trying to get up out of bed. He was
labeled DNR however when the ICU ADVERTISING SUPERVISOR call the family this was reversed, and CPR/ACLS was initiated. He was given an amp of epinephrine and pulse was regained and then he became bradycardic and lost pulse again. CPR resumed and given 2 A of epi and
patient was intubated. ROSC regained. Due to his prearrest seizure-like activity, neurology was called and empiric Keppra was given. TTM was not started given his acute upper GI bleed and epistaxis. He has continued to be managed in the ICU and
dining room attendant services consulted for additional management/recommendations.
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
Impression:
#Hemorrhagic shock - shock state now resolved
#In-hospital cardiac arrest with preceding seizure-like activity (withdrawal seizure vs myoclonic jerks)
#Acute blood loss anemia due to reported epistaxis and UGIB with hematemesis
#Acute respiratory failure with hypoxia now on mechanical ventilation (intubated 03/24/2024)
#RUL + bilateral lower lobe pneumonia (confirmed on CT Chest from 03/24/2024)
#Acute thrombocytopenia
#Alcoholism with use of alcohol use drinking vodka daily as well as wine
#Suspected alcohol withdrawal seizure
#History of anxiety
#Metabolic acidosis with increased anion gap + respiratory acidosis - acidosis now resolved
#Lactic acidosis � now resolved
#Hypochloremic, hyponatremia � now resolved
#Hyperglycemia � now resolved
#Transaminitis with hyperbilirubinemia
#Elevated troponin likely due to cardiac arrest
#Chronic HFrEF with RV dysfunction seen on TTE from 03/24/2024
Plan/recommendations:
At this time, patient remains critically ill
Persistent fevers noted Precedex has been weaned off
Remains on propofol/fentanyl
Doppler with left upper extremity DVT, IVs removed
CT chest 03/28/2024 with bibasilar consolidation, possible pneumonia left greater than right
Remains on volume-cycled ventilation
Moving forward
Continue with volume-cycled ventilation
AC 14/450/5/40%
PPK 40, Pplat 23
Repeat ABG in a.m.
Remains on propofol, fentanyl, Ativan as needed
Continue DuoNebs, Flovent. Patient with history of asthma
Patient presented with bloody emesis, dark stool
Tolerating tube feeds
Patient had bowel movement 03/29
Abdominal x-ray unremarkable
Abdomen is benign, soft
ID following
Patient remains on Augmentin, recent episode of epistaxis noted, nasal packing in place
Was on Zosyn
Remdesivir continues
Zosyn has been discontinued
Follow temperatures
Also on Decadron 6 mg every 24 hours. We will discontinue Decadron. Reviewed with ID
No significant hypoxia at this time. Will follow
Patient with significant intermittent agitation
Head CT without acute findings
Patient with episode of PEA, seizure activity
Neurology was following, EEG without evidence of seizures
Remains on phenobarbital, per neuro recommendations
Continue with folic acid, thiamine
History of alcohol abuse noted
Remains on Seroquel, 100 mg twice a day
Check EKG
Lasix therapy continues, beta-kevin noted
Eliquis remains on hold, last dose 03/21. Significant epistaxis noted
Required transfusion 03/23
ENT also following
Echo 03/24/2024
EF 30%, global hypokinesis, enlarged RV size with reduced function, PA pressure 30
Diuresis continues
Remains on Lopressor every 6 hours 25 mg
Cardiology following
Follow blood sugars
Patient with bloody emesis and tarry stool prior to admission
Hemoglobin stable at 7.8, transfuse 1 unit 03/23
Abdominal ultrasound with hepatic infiltration, no evidence of cirrhosis
GI following, last seen 03/25, signed off
Recommended to continue pantoprazole twice daily
EGD was not pursued
GI prophylaxis: On pantoprazole
DVT prophylaxis: Lovenox 40 mg every 12 hours
Follow electrolytes
Agitation continues to be an issue
Patient drinks half a bottle of vodka according to mother
Last drink 03/22/2024
Sedation vacation as able
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
GI prophylaxis: Remains on Protonix twice daily
Critical care statement: A total of 35 minutes of critical care time was provided for this patient today. This includes management of unstable vital signs, evaluation of the patient at bedside, reviewing the patient's pertinent medical records
including radiographs, microbiology, laboratory evaluations, and discussion with primary team, consultants, pharmacy, nutrition, physical therapy, case management, charge nurse, critical care nursing, and respiratory therapy.
Data:
CXR 03/24/2024:
New mild right upper lobe airspace disease concerning for developing pneumonia.
Possible developing pneumonia in the right costophrenic angle versus atelectasis. Progressed. Mild.
Tiny right pleural effusion. Progressed.
Cardiomegaly. Stable.
CXR 03/27/2024:
1. Moderate cardiomegaly. Mild pulmonary edema.
2. Suspected small bilateral pleural effusions. Left lower lobe airspace disease may also be present.
CXR 03/28/2024: Mild to moderate CHF, slightly progressed. Small right and [id number] left pleural effusions with associated atelectasis and/or pneumonia, progressed.
CT chest/abdomen/pelvis without contrast 03/24/2024:
Moderate bibasilar consolidation. This may represent atelectasis or pneumonia.
Bilateral lower lobe, lingular and right upper lobe atelectasis versus scarring.
Small pericardial effusion.
Findings suggesting mild volume overload or third spacing.
Minimal diverticulosis.
Subjective Dataa
Subjective Data
Date of Service:
Date of Service: March 30, 2024
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
Subjective:
Unfortunately, patient remains intermittently severely agitated, kicking at staff. When agitated, not following commands. Mother at bedside. Patient is spontaneously moving extremities but does not follow commands. When gets agitated, heart rate
goes up into the 160s
Objective Data
Data Reviewed
Vital Signs / I&O / Oxygen:
Vital Signs
Temp Pulse Resp BP Pulse Ox
97.1 F 95 15 111/85 99
03/30/24 06:14 03/30/24 08:00 03/30/24 08:00 03/30/24 08:00 03/30/24 08:00
Intake and Output
03/29/24 03/30/24 03/31/24
06:59 06:59 06:59
Intake Total 2890.7 / 3015.0 2463.0 / 2505.6 85.2 / 85.2
Output Total 4480 / 4480 4245 / 4275 65 / 65
Balance -1589.3 / -1465.0 -1782.0 / -1769.4 20.2 / 20.2
SaO2 [CPAP/PSV] 100
SaO2 [A/C] 99
SaO2 100
Physical Exam
General: Comfortable
HEENT: Normocephalic, Anicteric, Other (Thick neck) and Other (ETT in place)
Cardiovascular: S1-S2, Regular Rhythm (Tachycardic), Murmur (n), Rub (n) and Peripheral Edema (Trace lower extremity edema bilaterally)
Respiratory: Wheeze (negative), Crackles (few), Rhonchi (negative), Non-Labored Respirations, Stridor (n) and ET Tube (Mechanical breath sounds heard bilaterally)
GI: Soft, Distended (Abdominal obesity), Non Tender and Normal Bowel Sounds
Neurology: Lethargic (Sedated, moves all extremities when agitated)
Skin: Warm, Dry, Cyanosis (negative), Jaundice (negative) and Rash (negative)
Labs/Micro/Reports
Lab Data
03/30/24 03:24
03/30/24 03:24
Microbiology
03/27/24 09:01 Blood/Venous Blood Culture - Preliminary
No Growth in 48 hours- Final report to follow
03/27/24 09:01 Blood/Venous Blood Culture - Preliminary
No Growth in 48 hours- Final report to follow
03/27/24 17:30 Sputum Respiratory Culture - Preliminary
Usual Respiratory Michelle
03/27/24 17:30 Sputum Gram Stain - Preliminary
03/28/24 15:21 Nasal Swab Influenza Types A & B (TAYE) - Final
Negative for Influenza A & B, NAAT
Negative results must be combined with clinical observations
and patient history.
Nucleic Acid Amplification test (NAAT)performed on the
[facility] platform.
03/25/24 13:46 Endotracheal Respiratory Culture - Final
Usual Respiratory Michelle
03/25/24 13:46 Endotracheal Gram Stain - Final
[2024-03-30] MEDS: AUGMENTIN 250 MG/5 ML 500 MG TUBE (08:36)
--- NOTE | 2024-03-30 09:00 | PTCARENOTE ---
Rec'd care of patient at 0700. Patient intubated/sedated. Opening eyes to verbal stimuli. Pupils equal and reactive. Does not follow commands. Afib on tele monitor. +1 anasarca. Palpable pulses. #8 ett, 25 @ the lip. A/C 14/450/5/40%. Lung sounds
coarse/diminished throughout. +BS. Incontinent of liquid stools. FMS in place. Muniz in place for critical I/O. Fent/Prop infusing through RDL PICC. 4pt restraints on d/t intermittent periods of agitation/combativeness. Safe environment maintained.
See worklist for full assessment and care.
--- NOTE | 2024-03-30 09:37 | W.PN.ID1 ---
Date of Service
Date of Service: March 30, 2024
Today's Communication
Continue Remdesivir.
DC Augmentin.
Assessment / Plan
# COVID infection
03/28/24 COVID ag positive
Unvaccinated
COVID PNA
# VDRF
# Fever resolving
# s/p UGI bleed/hematemesis
# s/p blood loss anemia
# Epistaxis - packing removed 03/29
# Alcohol withdrawal
# s/p PEA cardiac arrest
# Acute on chronic CHF, procalcitonin >2000
Plan:
- Continue Remdesivir for COVID, day 2
- Sputum resp yvette. Procal <0.25. Zosyn dc'd 03/29.
- Follow temps.
-COVID isolation. Informed pt's mom and sister should test themselves.
-Nasal packing removed 03/29. DC prophylactic Augmentin.
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
Afib on Eliquis
HTN
HFrEF
anxiety
bipolar disorder
Substance abuse in the past
ETOH abuse
Robotic asst lap LACY umbilical/ventral hernia repair w mesh (04/18/2022)
Chief Complaint
-: Fever
Subjective / Review of Systems
Remains on vent. Mom at bedside.
Vital Signs / Physical Exam
Vital Signs
Vital Signs
Temp Pulse Resp BP Pulse Ox
97.9 F 126 13 103/69 97
03/30/24 08:00 03/30/24 09:09 03/30/24 09:09 03/30/24 09:09 03/30/24 09:09
Physical Exam
Constitutional: Acutely Ill
Pulmonary: Other (tachycardic)
Gastrointestinal: Soft, Non Tender and Non Distended
Genito-Urinary: Muniz and Clear Urine
Neurological: Awake (Opens eyes)
Objective Data
Lab Data
Lab Results
03/30/24 03:24
03/30/24 03:24
PT 15.9 Sec (11.4-14.6) H 03/25/24 04:16
INR 1.24 03/25/24 04:16
APTT 26.3 Sec (23.4-35.0) 03/24/24 03:19
Estimated Creat Clear > 125 ml/min 03/30/24 03:24
Lactic Acid 1.1 mmol/L (0.7-2.0) 03/24/24 09:25
Total Bilirubin 1.2 mg/dl (0.2-1.3) 03/30/24 03:24
AST 50 U/L (17-59) 03/30/24 03:24
ALT 35 U/L (0-50) 03/30/24 03:24
Alkaline Phosphatase 78 U/L (38-126) 03/30/24 03:24
Most recent labs reviewed.
Micro Results:
03/27/24 09:01 Blood Culture - Preliminary
Blood/Venous No Growth in 72 hours- Final report to follow
03/27/24 09:01 Blood Culture - Preliminary
Blood/Venous No Growth in 72 hours- Final report to follow
03/27/24 17:30 Respiratory Culture - Preliminary
Sputum Usual Respiratory Yvette
Gram Stain - Preliminary
03/28/24 15:21 Influenza Types A & B (TAYE) - Final
Nasal Swab Negative for Influenza A & B, NAAT
Negative results must be combined with clinical observations
and patient history.
Nucleic Acid Amplification test (NAAT)performed on the
[employer] platform.
03/25/24 13:46 Respiratory Culture - Final
Endotracheal Usual Respiratory Yvette
Gram Stain - Final
03/26/24 03:45 Legionella Urinary Antigen - Final
Urine Negative for Legionella pneumophila Serogroup 1 antigen.
A negative result does not rule out the possiblity of
Legionella infection due to other serogroups or species of
Legionella. Clinical correlation is recommended.
Streptococcus pneumoniae Antigen (M - Final
Negative for Streptococcus pneumoniae antigen.
A negative result does not exclude infection with
Streptococcus pneumoniae. Clinical correlation is
recommended.
03/24/24 17:54 Legionella Urinary Antigen - Final
Urine Negative for Legionella pneumophila Serogroup 1 antigen.
A negative result does not rule out the possiblity of
Legionella infection due to other serogroups or species of
Legionella. Clinical correlation is recommended.
Streptococcus pneumoniae Antigen (M - Final
Negative for Streptococcus pneumoniae antigen.
A negative result does not exclude infection with
Streptococcus pneumoniae. Clinical correlation is
recommended.
03/29/24 Periph Vasc US: Occlusive thrombus formation in the left basilic vein
03/28/24 CXR: Mild to moderate CHF, slightly progressed. Small right and [id number] left pleural effusions with associated atelectasis and/or pneumonia, progressed.
03/27/24 CXR: Moderate cardiomegaly. Mild pulmonary edema. Suspected small bilateral pleural effusions. Left lower lobe airspace disease may also be present.
03/27/24 AXR: Nonspecific bowel gas pattern without signs of obstruction.
03/24/24 CT a/p: Moderate bibasilar consolidation. This may represent atelectasis or pneumonia. Bilateral lower lobe, lingular and right upper lobe atelectasis versus scarring. Small pericardial effusion. Findings suggesting mild volume overload or
third spacing.
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
[2024-03-30] MEDS: NSS (PRESERVATIVE FREE) 0.5 ML IV (10:13)
--- NOTE | 2024-03-30 10:45 | PTCARENOTE ---
Patient increasingly agitated following decrease in sedation. HR up to 150-160's. Pulling on restraints. Not following commands. PRN Ativan administered and Propofol gtt increased back to 30. Online User Experience Strategist and primary care team at bedside. TF rate
increased now that patient having BMs. No other changes.
--- NOTE | 2024-03-30 10:52 | CM ---
Patient continues on vent with COVID+. Patient status is pending functional assessments. CM will continue to follow for discharge planning needs.
Plan; TBD; depending on status
[2024-03-30] MEDS: VEKLURY 250 MG IV (11:35)
[2024-03-30 11:45] LABS: Glucose - Point of Care 109 mg/dl (70-99)
--- NOTE | 2024-03-30 12:30 | PTCARENOTE ---
Patient reassessed. Agitation improved with increased sedation. VSS. Afib with HR in the 100-110's. No other changes in assessment.
--- NOTE | 2024-03-30 15:14 | PTCARENOTE ---
HR trending back up. Currently in the 120-130's; afib. Window Trimmer Apprentice notified. PRN IV Lopressor ordered for better rate control.
[2024-03-30] MEDS: LOPRESSOR 5 MG IV (15:21)
--- NOTE | 2024-03-30 15:56 | PTCARENOTE ---
No changes in assessment. Patient remains intubated/sedated. Vent settings unchanged. Pulse ox 98%. Afib on tele monitor. IV Lopressor administered for HR>120.
[2024-03-30 17:42] LABS: Glucose - Point of Care 125 mg/dl (70-99)
[2024-03-30] MEDS: SENOKOT-S 1 TABLET PO (20:20)
--- NOTE | 2024-03-30 21:23 | PTCARENOTE ---
Received patient intubated and sedated, responds to tactile stimulation and moves arms/head. Does not follow commands. PERRLA, 3 mm. 4 point restraints ongoing. Afib 110s, +1 generalized anasarca, normothermic, BP stable. Palpable radial and pedal
pulses b/l. 8.0 ETT, 25 at the lip, moved to the center. Mouth care done, saturating 99%. AC 14/450/5/40%. Lung sounds diminished and coarse throughout, blood tinged oral secretions. Abdomen round, obese, distended, positive bowel sounds. FMS in
place draining brown stool. OG tube at 62 cm, jevity 1.5 increased to 45 with 25 ml flush. Residual 110. Muniz in place draining aj urine. Skin intact, bruise on abdomen. Right DL PICC patent, WNL. Fentanyl and propofol gtt ongoing per protocol.
Sister at bedside. Hourly rounding and patient safety checks ongoing, repositioned.
[2024-03-30 23:17] LABS: Glucose - Point of Care 104 mg/dl (70-99)
[2024-03-31] VITALS (26 sets, daily range): BP systolic 90–129; BP diastolic 70–100; BMI 39.3
--- NOTE | 2024-03-31 00:14 | PTCARENOTE ---
Patient assessment unchanged from previous, hourly rounding and patient safety checks ongoing.
[2024-03-31] MEDS: LOPRESSOR 5 MG IV ×2 (00:37→06:30)
[2024-03-31] MEDS: VENTOLIN NEBULES 2.5 MG INH (00:55)
[2024-03-31] MEDS: SUBLIMAZE 100 IV ×4 (02:26→19:51)
--- NOTE | 2024-03-31 04:52 | PTCARENOTE ---
CHG bath done, repositioned, labs sent, mouth care done. IV metoprolol given x1 for heart rate >120. Otherwise patient assessment unchanged from previous. Hourly rounding and patient safety checks ongoing.
[2024-03-31 04:55] LABS: B.E. 5.8 mmol/L; HCO3 32.2 mmol/L (21-28); O2 Saturation % 99.9 % (94-98); PCO2 57 mmHg (35-48); PO2 114 mmHg (83-108); pH 7.36 (7.35-7.45)
[2024-03-31 04:57] LABS: O2 Therapy 40%
[2024-03-31 05:14] LABS: % Basophils 1.7 % (0-2); % Eosinophils 3.8 % (0-6); % Immature Granulocytes 1.3 % (0-0.5); % Lymphocytes 19.1 % (20.5-51.1); % Monocytes 16.9 % (1.7-9.3); % Neutrophils 57.2 % (42.2-75.2); Absolute Basophils 0.1 10^3/uL (0-0.2); Absolute Eosinophils 0.2 10^3/uL (0-0.7); Absolute Immature Granulocytes 0.1 10^3/uL (0-0.05); Absolute Lymphocytes 1.2 10^3/uL (1.2-3.4); Absolute Monocytes 1.1 10^3/uL (0.1-0.6); Absolute Neutrophils 3.6 10^3/uL (1.4-6.5); Hematocrit 24.6 % (39.0-52.0); Hemoglobin 8.1 g/dL (13.0-18.0); Mean Corp Hgb Conc. 32.9 g/dL (33.0-37.0); Mean Corpuscular Hgb 30.9 pg (27.0-31.0); Mean Corpuscular Volume 93.9 fL (80.0-94.0); Mean Platelet Volume 10.9 fL (7.4-10.4); Nucleated Red Blood Cells % 0 % (-); Platelet Count 279 10^3/uL (130-400); Red Blood Cell Count 2.62 10^6/uL (4.70-6.10); Red Cell Dist. Width 15.7 % (11.5-14.5); White Blood Cell Count 6.3 10^3/uL (4.8-10.8)
[2024-03-31 05:27] LABS: ALT (SGPT) 31 U/L (0-50); AST (SGOT) 49 U/L (17-59); Alkaline Phosphatase 83 U/L (38-126); Blood Urea Nitrogen 22 mg/dl (9-20); Calcium 7.7 mg/dl (8.4-10.2); Carbon Dioxide 29 mmol/L (22-30); Chloride 98 mmol/L (98-107); Estimated Creatinine Clearance > 125 ml/min; Glucose 95 mg/dl (70-99); Potassium 4.2 mmol/L (3.5-5.1); Sodium 135 mmol/L (135-145); Total Bilirubin 0.6 mg/dl (0.2-1.3); Total Protein 5.6 g/dl (6.3-8.2); eGFR > 60.00
[2024-03-31] MEDS: LOPRESSOR 25 MG TUBE ×3 (05:54→17:36)
[2024-03-31] MEDS: ATIVAN 1 MG IV ×2 (06:24→23:00)
[2024-03-31] MEDS: SUBLIMAZE 50 MCG IV (06:28)
--- NOTE | 2024-03-31 07:13 | W.PN.HOSP.TC ---
Addendum entered and electronically signed by Elis Tracy MD 03/31/24 19:42:
I saw and evaluated the patient independently. I reviewed the resident�s note and agree with findings and plan as documented by Dr. Reese.
GENERAL: well developed, well nourished, male in no apparent distress
HEENT: NC/AT intubated--OG tube
HEART:irreg irreg, tachycardic
LUNGS : clear to auscultation bilaterally
ABDOM: soft, nontender, nondistended, + bowel sounds--rectal tube
EXT: no cyanosis, clubbing, or edema
NEUROLOGIC: intubated and sedated
Sepsis, likely secondary to COVID-19 Infection - Febrile for several days without white count, initially thought propofol rxn vs. bacterial infection, however repeat covid test on 03/28/24 positive. Added Remdesivir + Decadron, stopped zosyn.
Hypothermic 96.6, tachycardic 102, source of infection COVID 19. Patient is on mechanical ventilation, receiving antivirals and steroids--apprec marina porter
Superficial Venous Thrombus - swelling in L arm near peripheral line, US confirmed L basilic vein thrombosis. Line removed. Will observe.
Aspiration Pneumonia, likely prior to admission and worsened since admission - CXR since admissions progressed, with most recent showing small R and small-moderate L pleural effusions w/ associated atelectasis and/or pneumonia--Blood cx NGTD x
48hrs, sputum cx showing usual yvette. COVID/Flu on admission negative--apprec ID
Vtach Cardiac Arrest w/ CPR-- CXR did not show any osseous abnormalities. TTM not initiated due to UGI bleed. Weaned off pressure supports. Head CT showed atrophy and EEG showed diffuse cortical dysfunction without focal abnormality and no seizure
activity--- Currently sedated, on propofol ggt & fentanyl ggt, BID seroquel however patient is still violent/aggressive when attempting to wean--- Weaning of sedation and ventilation per marina porter team--apprec cards
Alcohol Use Disorder w/ possible withdrawal seizure-- MSAS protocol. Getting thiamine and Folic acid, Ativan per protocol, however patient currently sedated. Will be mindful of possible withdrawal as he is weaned off sedation. Attempts to wean thus
far have resulted in myoclonic movements; more likely withdrawal seizures vs hypoxic brain injury as head CTs show no signs of cerebral edema. On Phenobarb for seizure control--apprec neuro--if needed, will consult psych for alternative meds to help
with agitation while being weaned
Persistent Afib - ECG showing afib w/ rate control on lopressor 25mg q6 via tubes-- Cardiology following.
Upper GI Bleed w/ Epistaxis resulting in Acute blood loss anemia - patient's last dose Eliquis Friday03/28/24 morning; stopped himself due to bleeding. S/p 1u pRBCs. Will continue to monitor H&H. Transfuse if hgb <7- s/p TXA & cauterization for
epistaxis. No signs of active bleeding on exam, monitoring hgb as above- Abd ultrasound showing Hepatic fatty infiltration- c/w IV protonix per GI--apprec GI/ENT
acute on chronic HFrEF - Lopressor 25q6 per cardiology. Echo showing EF of 30-35% with global hypokinesis w/ small pericardial effusion. Continue w/ gentle diuresis.
Hyperglycemia - initiated LD ISS for glucose management
Hyponatremia (resolved) - Up to 132 this AM. Off fluids. Assess volume status and replete as needed.
Hyperbilirubinemia (resolved) - elevated since admission, possible component of hemolysis vs. Gilbert's Disease. Resolved now.
Transaminitis, likely alcoholic fatty liver, possible compounding shock liver (resolved) - Elevated AST/ALT on admission 2:1. history of alcohol use and obesity, possible chronic elevation from fatty liver vs. shock liver. Will continue to monitor.
AST/ALT normalized.
Lactic Acidosis (resolved) - was elevated immediately post cardiac arrest, has come back down to normal. Blood gas showed metabolic acidosis without respiratory compensation; now normal pH.
Elevated troponins (resolved)- peaked, likely secondary to cardiac arrest.
Asthma - per mother at bedside patient has been using his inhaler more frequently for night time shortness of breath. 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 sleep apnea vs. worsening Asthma, however history uncertain. Will continue to observe.
patient currently intubated, will reassess when medically stable.
Bipolar Disorder - patient was on Lexapro but stopped on his own due to weight gain (obtained from mother at bedside). Presently patient is sedated, can consider psych consult in the future depending on patient status.
DVT Proph - SCDs
Code Status - Full Code
Total Critical Care Time 33 minutes. I was immediately available to the patient and staff. I personally examined, reviewed labs, diagnostic images/reports, interpretations, treatment plans, discussed patient care with other providers and family
or caregivers (if patient is unable to make decisions), entered orders as appropriate and documented the medical record.
Original Note:
Today's Communication/Plan
-
C/w remdesivir and decadron. Weaning of sedation per marina porter team. Appreciate care integration for this patient.
Assessment / Plan
Assessment / Plan
38 year old male
#Sepsis, likely secondary to COVID-19 Infection - Febrile for several days without white count, initially thought propofol rxn vs. bacterial infection, however repeat covid test on 03/28/24 positive. Added Remdesivir + Decadron, stopped zosyn.
Hypothermic 96.6 F, tachycardic 102, source of infection COVID 19.
- c/w Remdesivir & Decadron
#Superficial Venous Thrombus - swelling in L arm near peripheral line, US confirmed L basilic vein thrombosis. Line removed. Will observe.
#Possible Aspiration Pneumonia, likely prior to admission and worsened since admission
- CXR since admissions progressed, with most recent showing small R and small-moderate L pleural effusions w/ associated atelectasis and/or pneumonia.
- Blood cx NGTD x 48hrs, sputum cx showing usual yvette. COVID/Flu on admission negative.
- ID following.
#Vtach Cardiac Arrest w/ CPR
- CXR did not show any osseous abnormalities. TTM not initiated due to UGI bleed. Weaned off pressure supports. Head CT showed atrophy and EEG showed diffuse cortical dysfunction without focal abnormality and no seizure activity.
- Currently sedated, on propofol ggt & fentanyl ggt, BID seroquel, however patient is still violent/aggressive when attempting to wean.
- Weaning of sedation and ventilation per marina porter team.
- May consider psych consult for addition of medications to assist in stabilizing patient's aggression to facilitate extubation
#Alcohol Use Disorder w/ possible withdrawal seizure
- MSAS protocol. Getting thiamine and Folic acid, Ativan per protocol, however patient currently sedated. Will be mindful of possible withdrawal as he is weaned off sedation. Attempts to wean thus far have resulted in myoclonic movements; more
likely withdrawal seizures vs hypoxic brain injury as head CTs show no signs of cerebral edema. On Phenobarb for seizure control.
- Neuro following.
#Persistent Afib - ECG showing afib w/ rate control on lopressor 25mg q6 via tubes. Cardiology following.
#Upper GI Bleed w/ Epistaxis
#Acute blood loss anemia
- patient's last dose Eliquis Friday morning; stopped himself due to bleeding. S/p 1u pRBCs.
- s/p TXA & cauterization for epistaxis. No signs of active bleeding on exam. Nasal packing removed.
- Will continue to monitor H&H. Transfuse if hgb <7.
- c/w IV protonix per GI.
#HFrEF - Lopressor 25q6 per cardiology. Echo showing EF of 30-35% with global hypokinesis w/ small pericardial effusion.
#Elevated Glucose - initiated LDISS for glucose management
#Hyponatremia (resolved) - Up to 132 this AM. Off fluids. Assess volume status and replete as needed.
#Hyperbilirubinemia (resolved) - possible component of hemolysis vs. Gilbert's Disease. Resolved now.
#Transaminitis, likely alcoholic fatty liver, possible compounding shock liver (resolved) - Elevated AST/ALT on admission 2:1. history of alcohol use and obesity, possible chronic elevation from fatty liver vs. shock liver. AST/ALT normalized.
#Lactic Acidemia (resolved) - was elevated immediately post cardiac arrest, has come back down to normal. Blood gas showed metabolic acidosis without respiratory compensation; now normal pH.
#Elevated troponins (resolved)- peaked, likely secondary to cardiac arrest.
#Asthma - per mother at bedside patient has been using his inhaler more frequently for night time shortness of breath. 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 sleep apnea vs. worsening Asthma, however history uncertain. Will continue to observe.
patient currently intubated, will reassess when medically stable.
#Bipolar Disorder, uncertain - patient's mother states he was on Lexapro but stopped on his own due to weight gain. Presently patient is sedated, can consider psych consult in the future depending on patient status.
Diet - NPO
DVT Ppx - SCDs
GI Ppx - Protonix 40 BID IV
Code Status - Full Code
Anticipated Discharge: > 48 hours
Subjective/Interval History
-
Attempted to wean last night, but following xray he became aggressive, rising from the bed, swinging his arms, unable to follow commands. Sedation was given Ativan and fentanyl boluses with no change. Finally he was bumped up to 200 fentanyl and 40
propofol. Now this AM he is back down to 30 fentanyl and resting comfortably.
Objective Data
-
Labs:
Laboratory Results
03/31/24 03/31/24
04:43 04:44
WBC 6.3
Hgb 8.1 L
Hct 24.6 L
Plt Count 279
HCO3 32.2 H
Sodium 135
Potassium 4.2
Chloride 98
Carbon Dioxide 29
BUN 22 H
Creatinine 0.7
Glucose 95
Calcium 7.7 L
Total Bilirubin 0.6
AST 49
ALT 31
Alkaline Phosphatase 83
Vital Signs:
Vital Signs
Temp Pulse Resp BP Pulse Ox
99 F 160 17 129/84 98
03/31/24 04:08 03/31/24 06:30 03/31/24 05:00 03/31/24 06:30 03/31/24 06:00
I&O
03/30/24 03/31/24 04/01/24
06:59 06:59 06:59
Intake Total 2463.0 / 2560.6 2254.0 / 2254.0
Output Total 4245 / 4275 2109 / 2109
Balance -1782.0 / -1714.4 144.0 / 144.0
Review of Systems
-
Unable to obtain full review of systems at this time due to: Patient Intubation and Other (Sedated)
Physical Exam
-
General: Well Developed, Well Nourished, No Apparent Distress, Intubated and Obese
HEENT: Normocephalic, Atraumatic, Moist Mucous Membranes, [place] Conjunctivae, Nose Appears Normal and Ears Appear Normal; Negative PERRLA
Respiratory: Other (Mechanical breath); Negative Wheezes or Rales
Cardiac: S1/S2, Irregular Rhythm and Tachycardic; Negative Murmur
Breast: N/A
GI: Soft, Nontender and Distended
Rectal: Other (Dark liquid stools )
Genito-urinary: Clear Urine and Muniz
Musculoskeletal: No Clubbing, No Cyanosis and No Edema
Skin: IV Access / Catheter Site
Neuro: Sedated
--- NOTE | 2024-03-31 07:46 | W.PN.INTV ---
Today's Communication / Plan
Recommendations
Will transition to ASV in the morning
Hold for sedation vacation, possible extubation in the a.m.
Another dose of Lasix tonight
Continue with IV Lopressor
Hold bowel regimen
Assessment
-
Assessment: 38-year-old male non-smoker with a past medical history of persistent A-fib on Eliquis, bipolar affective disorder, asthma, and hypertension who presented with vomiting blood 1 day prior to arrival with dark stools as well as a
nosebleed. He has been having fatigue, shortness of breath and confusion with chest pain. He is normally on Eliquis but he has been holding it for few days due to his bleeding. He does follow-up with cardiology with last visit on 02/17/[address] Phillips[address] He has a history of nonischemic cardiomyopathy with prior EF of 20-25% with global hypokinesis from echo in December 2023. He was discussing getting an ablation for his A-fib. He has a history of cardioversion x 2 with failure to
restore into sinus rhythm. Also it has been difficult to choose an antiarrhythmic drug in the setting of his lithium drug use with risk of QT prolongation. In the ER he told the doctor he has been having a bloody nose which started on the day of
ER arrival, and has been vomiting bright red blood with dark tarry stools for 1 week. Last dose of Eliquis was on Friday (03/21/2024). In the ER he was afebrile to 97.1 �F, pulse rate 97, breathing at 20 breaths/minute, BP 129/83 and saturating 98%
on room air. Initial labs showed Hb 8.9, platelet count 115, sodium 123, chloride 87, BUN 33, serum osmolarity 302, and urinalysis negative for signs of UTI. Initial CXR showed suspected small right pleural effusion with possible pneumonia in the
right middle lobe. He was initially admitted to the IMU for a GI bleed with epistaxis. Overnight he was agitated and required Precedex drip so was transferred to the ICU, and developed a cardiac arrest while trying to get up out of bed. He was
labeled DNR however when the ICU CONSTRUCTION SPECIALIST call the family this was reversed, and CPR/ACLS was initiated. He was given an amp of epinephrine and pulse was regained and then he became bradycardic and lost pulse again. CPR resumed and given 2 A of epi and
patient was intubated. ROSC regained. Due to his prearrest seizure-like activity, neurology was called and empiric Keppra was given. TTM was not started given his acute upper GI bleed and epistaxis. He has continued to be managed in the ICU and
marine fitter services consulted for additional management/recommendations.
Chronic conditions RETORT LOADER: Asthma, hypertension, bipolar 1 disorder, A-fib
Impression:
#Hemorrhagic shock - shock state now resolved
#In-hospital cardiac arrest with preceding seizure-like activity (withdrawal seizure vs myoclonic jerks)
#Acute blood loss anemia due to reported epistaxis and UGIB with hematemesis
#Acute respiratory failure with hypoxia now on mechanical ventilation (intubated 03/24/2024)
#RUL + bilateral lower lobe pneumonia (confirmed on CT Chest from 03/24/2024)
#Acute thrombocytopenia
#Alcoholism with use of alcohol use drinking vodka daily as well as wine
#Suspected alcohol withdrawal seizure
#History of anxiety
#Metabolic acidosis with increased anion gap + respiratory acidosis - acidosis now resolved
#Lactic acidosis � now resolved
#Hypochloremic, hyponatremia � now resolved
#Hyperglycemia � now resolved
#Transaminitis with hyperbilirubinemia
#Elevated troponin likely due to cardiac arrest
#Chronic HFrEF with RV dysfunction seen on TTE from 03/24/2024
Plan/recommendations:
At this time, patient remains critically ill
Fever seem improved, now off Precedex
Remains on propofol/fentanyl
Doppler with left upper extremity DVT, IVs removed
CT chest 03/28/2024 with bibasilar consolidation, possible pneumonia left greater than right
Chest x-ray 03/31 much improved with improved aeration bilaterally
Remains on volume-cycled ventilation
Moving forward
Continue with volume-cycled ventilation
AC 14/450/5/40%
PPK 38, Pplat 19
We will consider transition to ASV depending on how he does
Remains on propofol, fentanyl, Ativan as needed
Continue DuoNebs, Flovent. Patient with history of asthma
Follow airway pressures
Patient presented with bloody emesis, dark stool
Tolerating tube feeds
Patient had bowel movement 03/29
Abdominal x-ray unremarkable
Abdomen is benign, soft
ID following
Patient remains on Augmentin, recent episode of epistaxis noted, nasal packing in place
Was on Zosyn, now discontinued
Remdesivir continues
Fever curve improved
Decadron discontinued 03/30
No significant hypoxia at this time. Will follow
Patient with significant intermittent agitation
Head CT without acute findings
Patient with episode of PEA, seizure activity
Neurology was following, EEG without evidence of seizures
Remains on phenobarbital, per neuro recommendations
Continue with folic acid, thiamine
History of alcohol abuse noted, last drink 03/22
Remains on Seroquel, 100 mg twice a day
Follow QTc, EKG today for 67
Lasix therapy continues, beta-kevin noted
Eliquis remains on hold, last dose 03/21. Significant epistaxis noted
Required transfusion 03/23
ENT also following
May give extra dose of Lasix today
Echo 03/24/2024
EF 30%, global hypokinesis, enlarged RV size with reduced function, PA pressure 30
Diuresis continues
Remains on Lopressor every 6 hours 25 mg
Atrial fibrillation continues
Cardiology following
Follow blood sugars
Patient with bloody emesis and tarry stool prior to admission
Hemoglobin stable at 7.8, transfuse 1 unit 03/23
Abdominal ultrasound with hepatic infiltration, no evidence of cirrhosis
GI following, last seen 03/25, signed off
Recommended to continue pantoprazole twice daily
EGD was not pursued
Hold bowel regimen, now with loose stool
GI prophylaxis: On pantoprazole
DVT prophylaxis: Lovenox 40 mg every 12 hours
Follow electrolytes
Agitation continues to be an issue
Patient drinks half a bottle of vodka according to mother
Last drink 03/22/2024
Sedation vacation as able
DVT ppx: SCDs and continue LMWH; previously he stopped his Eliquis RETORT LOADER due to nosebleeds, plus he was scheduled for an ablation given Hx of A-fib
GI prophylaxis: Remains on Protonix twice daily
Critical care statement: A total of 33 minutes of critical care time was provided for this patient today. This includes management of unstable vital signs, evaluation of the patient at bedside, reviewing the patient's pertinent medical records
including radiographs, microbiology, laboratory evaluations, and discussion with primary team, consultants, pharmacy, nutrition, physical therapy, case management, charge nurse, critical care nursing, and respiratory therapy.
Data:
CXR 03/24/2024:
New mild right upper lobe airspace disease concerning for developing pneumonia.
Possible developing pneumonia in the right costophrenic angle versus atelectasis. Progressed. Mild.
Tiny right pleural effusion. Progressed.
Cardiomegaly. Stable.
CXR 03/27/2024:
1. Moderate cardiomegaly. Mild pulmonary edema.
2. Suspected small bilateral pleural effusions. Left lower lobe airspace disease may also be present.
CXR 03/28/2024: Mild to moderate CHF, slightly progressed. Small right and [id number] left pleural effusions with associated atelectasis and/or pneumonia, progressed.
CT chest/abdomen/pelvis without contrast 03/24/2024:
Moderate bibasilar consolidation. This may represent atelectasis or pneumonia.
Bilateral lower lobe, lingular and right upper lobe atelectasis versus scarring.
Small pericardial effusion.
Findings suggesting mild volume overload or third spacing.
Minimal diverticulosis.
Subjective Dataa
Subjective Data
Date of Service:
Date of Service: March 31, 2024
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
Subjective:
Patient remains critically ill. IV Lopressor continues, required occasional intermittent as needed dosing. Tolerating tube feeds. Still with intermittent agitation, tachycardia
Objective Data
Data Reviewed
Vital Signs / I&O / Oxygen:
Vital Signs
Temp Pulse Resp BP Pulse Ox
98.3 F 160 17 129/84 98
03/31/24 07:37 03/31/24 06:30 03/31/24 05:00 03/31/24 06:30 03/31/24 06:00
Intake and Output
03/30/24 03/31/24 04/01/24
06:59 06:59 06:59
Intake Total 2463.0 / 2560.6 2254.0 / 2254.0
Output Total 4245 / 4275 2110 / 2110
Balance -1782.0 / -1714.4 144.0 / 144.0
SaO2 [CPAP/PSV] 100
SaO2 [A/C] 97
SaO2 98
Physical Exam
General: Comfortable
HEENT: Normocephalic, Anicteric, Other (Thick neck) and Other (ETT in place)
Cardiovascular: S1-S2, Regular Rhythm (Tachycardic), Murmur (n), Rub (n), Peripheral Edema (Trace lower extremity edema bilaterally) and Other (Right upper extremity PICC line)
Respiratory: Wheeze (negative), Crackles (few), Rhonchi (negative), Non-Labored Respirations, Stridor (n) and ET Tube (Mechanical breath sounds heard bilaterally)
GI: Soft, Distended (Abdominal obesity), Non Tender and Normal Bowel Sounds
Neurology: Lethargic (Sedated. Withdraws to noxious stimuli)
Skin: Warm, Dry, Cyanosis (negative), Jaundice (negative) and Rash (negative)
Labs/Micro/Reports
Lab Data
03/31/24 04:43
03/31/24 04:43
Laboratory Results
03/31/24
04:44
pH 7.36
pCO2 57 H
pO2 114 H
HCO3 32.2 H
O2 Delivery Level 40%
Microbiology
03/27/24 17:30 Sputum Respiratory Culture - Final
Usual Respiratory Michelle
03/27/24 17:30 Sputum Gram Stain - Final
03/27/24 09:01 Blood/Venous Blood Culture - Preliminary
No Growth in 72 hours- Final report to follow
03/27/24 09:01 Blood/Venous Blood Culture - Preliminary
No Growth in 72 hours- Final report to follow
03/28/24 15:21 Nasal Swab Influenza Types A & B (TAYE) - Final
Negative for Influenza A & B, NAAT
Negative results must be combined with clinical observations
and patient history.
Nucleic Acid Amplification test (NAAT)performed on the
[employer] platform.
[2024-03-31] MEDS: FLOVENT 220 MCG INHALER 2 PUFF INH ×2 (08:43→20:16)
[2024-03-31] MEDS: DUONEB 3 ML INH ×4 (08:43→20:15)
--- NOTE | 2024-03-31 08:45 | PTCARENOTE ---
Assumed care of pt at 0715 following shift report. Pt remains intubated and on vent at settings as ordered. Propofol and Fentanyl gtts infusing via Rt UA PICC as documented. Pt drowsy/lethargic but opens eyes to name with tactile stimuli. Four
point soft restraints remain in use to protect lines/tubing. Spontaneous wakening trial not appropriate as pt w/ reported recent episode of extreme agitation requiring bolus dose Fentanyl and prn dose Ativan. Tube feeding continues at goal rate-
residual checked (230ml) and refed to pt. Muniz patent and draining clear aj urine, FMS in place w/ small amount of liquid dark brown stool in tubing/bag. Pt repositioned/comfort care and hygiene provided. Safe environment maintained.
[2024-03-31] MEDS: LOVENOX 40 MG SC ×2 (08:52→20:04)
[2024-03-31] MEDS: NSS (PRESERVATIVE FREE) 10 ML IV ×2 (08:52→20:03)
[2024-03-31] MEDS: PROTONIX IV 40 MG IV ×2 (08:52→20:04)
[2024-03-31] MEDS: SENOKOT-S 1 TABLET PO (08:53)
[2024-03-31] MEDS: VITAMIN B1 100 MG PO ×2 (08:53→20:04)
[2024-03-31] MEDS: FOLVITE 1 MG PO (08:53)
[2024-03-31] MEDS: SEROQUEL 100 MG TUBE ×2 (08:53→20:04)
[2024-03-31] MEDS: MIRALAX TUBE (08:54)
[2024-03-31] MEDS: LASIX 40 MG IV (08:54)
[2024-03-31] MEDS: DIPRIVAN 100 IV ×4 (09:58→23:00)
[2024-03-31] MEDS: VEKLURY 250 MG IV (12:17)
[2024-03-31 12:22] LABS: Glucose - Point of Care 117 mg/dl (70-99)
--- NOTE | 2024-03-31 12:30 | PTCARENOTE ---
Pt continues to rest quietly at current dose of Propofol and Fentanyl. Opens eyes to name, becomes slightly restless w/ tactile stimulation. Does not follow commands. Repositioned and comfort care provided q2hr or more frequently. Pt's sister on
unit to visit- updated on pt's present condition and questions answered. Per pt's sister, pt's mother is currently being evaluated in ER and will not be visiting pt at this time. Emotional support provided. No additional changes from previous
assessment findings.
--- NOTE | 2024-03-31 12:36 | W.PN.ID1 ---
Date of Service
Date of Service: March 31, 2024
Today's Communication
Continue Remdesivir.
Assessment / Plan
# COVID infection
-03/28/24 COVID ag positive
- Unvaccinated
- Continue Remdesivir, day 3
- Off dexamethasone
- Continue COVID isolation.
# VDRF: difficult wean due to agitation
# Fever resolved
# s/p UGI bleed/hematemesis
# Epistaxis - packing removed 03/29
# Alcohol withdrawal
# s/p PEA cardiac arrest
# Acute on chronic CHF, pro-BNP >2000
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
Afib on Eliquis
HTN
HFrEF
anxiety
bipolar disorder
Substance abuse in the past
ETOH abuse
Robotic asst lap LACY umbilical/ventral hernia repair w mesh (04/18/2022)
Chief Complaint
-: Fever
Subjective / Review of Systems
Remains on vent, sedated
Vital Signs / Physical Exam
Vital Signs
Vital Signs
Temp Pulse Resp BP Pulse Ox
98.2 F 112 17 107/84 99
03/31/24 11:15 03/31/24 12:16 03/31/24 05:00 03/31/24 12:16 03/31/24 12:08
Physical Exam
Constitutional: Acutely Ill
Cardiovascular: S1/S2 and Other (tachycardic)
Pulmonary: Clear
Gastrointestinal: Soft, Non Tender and Non Distended
Extremities: Negative Edema
Objective Data
Lab Data
Lab Results
03/31/24 04:43
03/31/24 04:43
PT 15.9 Sec (11.4-14.6) H 03/25/24 04:16
INR 1.24 03/25/24 04:16
APTT 26.3 Sec (23.4-35.0) 03/24/24 03:19
Estimated Creat Clear > 125 ml/min 03/31/24 04:43
Lactic Acid 1.1 mmol/L (0.7-2.0) 03/24/24 09:25
Total Bilirubin 0.6 mg/dl (0.2-1.3) 03/31/24 04:43
AST 49 U/L (17-59) 03/31/24 04:43
ALT 31 U/L (0-50) 03/31/24 04:43
Alkaline Phosphatase 83 U/L (38-126) 03/31/24 04:43
Most recent labs reviewed.
Micro Results:
03/27/24 09:01 Blood Culture - Preliminary
Blood/Venous No Growth in 4 days- Final report to follow
03/27/24 09:01 Blood Culture - Preliminary
Blood/Venous No Growth in 4 days- Final report to follow
03/27/24 17:30 Respiratory Culture - Final
Sputum Usual Respiratory Michelle
Gram Stain - Final
03/28/24 15:21 Influenza Types A & B (TAYE) - Final
Nasal Swab Negative for Influenza A & B, NAAT
Negative results must be combined with clinical observations
and patient history.
Nucleic Acid Amplification test (NAAT)performed on the
[employer] platform.
03/25/24 13:46 Respiratory Culture - Final
Endotracheal Usual Respiratory Michelle
Gram Stain - Final
03/26/24 03:45 Legionella Urinary Antigen - Final
Urine Negative for Legionella pneumophila Serogroup 1 antigen.
A negative result does not rule out the possiblity of
Legionella infection due to other serogroups or species of
Legionella. Clinical correlation is recommended.
Streptococcus pneumoniae Antigen (M - Final
Negative for Streptococcus pneumoniae antigen.
A negative result does not exclude infection with
Streptococcus pneumoniae. Clinical correlation is
recommended.
03/24/24 17:54 Legionella Urinary Antigen - Final
Urine Negative for Legionella pneumophila Serogroup 1 antigen.
A negative result does not rule out the possiblity of
Legionella infection due to other serogroups or species of
Legionella. Clinical correlation is recommended.
Streptococcus pneumoniae Antigen (M - Final
Negative for Streptococcus pneumoniae antigen.
A negative result does not exclude infection with
Streptococcus pneumoniae. Clinical correlation is
recommended.
03/31/24 CXR: Resolved CHF versus acute pulmonary edema in the interval since prior study.
03/29/24 Periph Vasc US: Occlusive thrombus formation in the left basilic vein
03/28/24 CXR: Mild to moderate CHF, slightly progressed. Small right and [id number] left pleural effusions with associated atelectasis and/or pneumonia, progressed.
03/27/24 CXR: Moderate cardiomegaly. Mild pulmonary edema. Suspected small bilateral pleural effusions. Left lower lobe airspace disease may also be present.
03/27/24 AXR: Nonspecific bowel gas pattern without signs of obstruction.
03/24/24 CT a/p: Moderate bibasilar consolidation. This may represent atelectasis or pneumonia. Bilateral lower lobe, lingular and right upper lobe atelectasis versus scarring. Small pericardial effusion. Findings suggesting mild volume overload or
third spacing.
--- NOTE | 2024-03-31 16:08 | PTCARENOTE ---
Pt continues to rest quietly, no changes from previous assessment findings.
[2024-03-31] MEDS: LASIX 20 MG IV (16:38)
[2024-03-31 17:41] LABS: Glucose - Point of Care 114 mg/dl (70-99)
--- NOTE | 2024-03-31 20:30 | PTCARENOTE ---
Received patient intubated, sedated, and in four point restraints. Opens eyes/moves arms to tactile stimulation, not following commands. PERRLA 3 mm. Afib with PVCs 110s, normothermic, BP table. + 1 generalized anasarca. 8.0 ETT, 25 at the lip, AC
14/450/5/40%. Lung sounds diminished and coarse throughout, norris secretions in line. Abdomen round, obese, positive bowel sounds. FMS in place. Jevity 1.5 at goal with 25 ml flush, residual 120. Muniz in place draining aj urine. Right DL PICC
patent, WNL. Fentanyl and propofol gtt ongoing per order. Sister at bedside, updated. Mouth care done and repositioned. Hourly rounding and patient safety checks ongoing.
[2024-03-31] MEDS: NSS (PRESERVATIVE FREE) 0.5 ML IV (23:00)
[2024-04-01] VITALS (21 sets, daily range): BP systolic 98–158; BP diastolic 70–111; BMI 39.2
[2024-04-01] MEDS: TYLENOL ORAL SOLUTION 650 MG TUBE ×3 (00:10→13:48)
[2024-04-01] MEDS: LOPRESSOR 25 MG TUBE ×6 (00:10→23:45)
[2024-04-01] MEDS: SUBLIMAZE 100 IV ×5 (00:19→20:41)
[2024-04-01 00:23] LABS: Glucose - Point of Care 100 mg/dl (70-99)
--- NOTE | 2024-04-01 00:24 | PTCARENOTE ---
Temp 100.8, tylenol given. Patient received ativan prn for agitation. Otherwise patient assessment unchanged from previous.
[2024-04-01] MEDS: SUBLIMAZE 50 MCG IV ×4 (01:20→21:24)
[2024-04-01] MEDS: DIPRIVAN 100 IV ×6 (02:38→19:44)
--- NOTE | 2024-04-01 04:50 | PTCARENOTE ---
Complete bed change, CHG bath done, labs sent. Otherwise patient assessment unchanged from previous.
[2024-04-01 05:00] LABS: % Basophils 1.4 % (0-2); % Eosinophils 3.2 % (0-6); % Immature Granulocytes 0.8 % (0-0.5); % Lymphocytes 16.4 % (20.5-51.1); % Monocytes 13.6 % (1.7-9.3); % Neutrophils 64.6 % (42.2-75.2); Absolute Basophils 0.1 10^3/uL (0-0.2); Absolute Eosinophils 0.3 10^3/uL (0-0.7); Absolute Immature Granulocytes 0.1 10^3/uL (0-0.05); Absolute Lymphocytes 1.3 10^3/uL (1.2-3.4); Absolute Monocytes 1.1 10^3/uL (0.1-0.6); Hematocrit 26.2 % (39.0-52.0); Hemoglobin 8.4 g/dL (13.0-18.0); Mean Corp Hgb Conc. 32.1 g/dL (33.0-37.0); Mean Corpuscular Volume 93.6 fL (80.0-94.0); Mean Platelet Volume 10.4 fL (7.4-10.4); Nucleated Red Blood Cells % 0 % (-); Platelet Count 326 10^3/uL (130-400); Red Cell Dist. Width 15.9 % (11.5-14.5); White Blood Cell Count 7.7 10^3/uL (4.8-10.8)
[2024-04-01 05:54] LABS: ALT (SGPT) 32 U/L (0-50); AST (SGOT) 67 U/L (17-59); Albumin 3.1 g/dl (3.5-5.0); Alkaline Phosphatase 88 U/L (38-126); Blood Urea Nitrogen 18 mg/dl (9-20); Calcium 7.5 mg/dl (8.4-10.2); Carbon Dioxide 31 mmol/L (22-30); Chloride 97 mmol/L (98-107); Estimated Creatinine Clearance > 125 ml/min; Glucose 100 mg/dl (70-99); Potassium 4.4 mmol/L (3.5-5.1); Sodium 136 mmol/L (135-145); Total Bilirubin 0.9 mg/dl (0.2-1.3); Total Protein 5.7 g/dl (6.3-8.2); eGFR > 60.00
[2024-04-01 05:59] LABS: Glucose - Point of Care 84 mg/dl (70-99)
--- NOTE | 2024-04-01 06:34 | W.PN.HOSP.TC ---
Addendum entered and electronically signed by Elis Tracy MD 04/01/24 16:07:
I saw and evaluated the patient independently. I reviewed the resident�s note and agree with findings and plan as documented by Dr. Reese.
GENERAL: well developed, well nourished, male in no apparent distress
HEENT: NC/AT intubated--OG tube
HEART:irreg irreg, tachycardic
LUNGS : clear to auscultation bilaterally
ABDOM: soft, nontender, nondistended, + bowel sounds--rectal tube
EXT: no cyanosis, clubbing, or edema
NEUROLOGIC: intubated and sedated
Sepsis, likely secondary to COVID-19 Infection still having fevers despite current therapy--aden culture, apprec ID, cefepime started--flu negative--repeat covid test on 03/28/24 positive--finish Remdesivir + Decadron, stopped zosyn-- Patient is on
mechanical ventilation, receiving antivirals and steroids stopped--apprec tar leveler
Superficial Venous Thrombus - swelling in L arm near peripheral line, US confirmed L basilic vein thrombosis. Line removed. Will observe.
Aspiration Pneumonia, likely prior to admission and worsened since admission - CXR since admissions progressed, with most recent showing small R and small-moderate L pleural effusions w/ associated atelectasis and/or pneumonia--Blood cx NGTD x
48hrs, sputum cx showing usual yvette. COVID/Flu on admission negative--apprec ID
Vtach Cardiac Arrest w/ CPR-- CXR did not show any osseous abnormalities-- TTM not initiated due to UGI bleed. Weaned off pressure supports. Head CT showed atrophy and EEG showed diffuse cortical dysfunction without focal abnormality and no seizure
activity--- Currently sedated, on propofol ggt & fentanyl ggt, BID seroquel however patient is still violent/aggressive when attempting to wean--- Weaning of sedation and ventilation per tar leveler team--apprec cards
VDRF--wean per intesivist--failed weaning trial today
Alcohol Use Disorder w/ possible withdrawal seizure-- MSAS protocol. Getting thiamine and Folic acid, Ativan per protocol, however patient currently sedated. Will be mindful of possible withdrawal as he is weaned off sedation. Attempts to wean thus
far have resulted in myoclonic movements; more likely withdrawal seizures vs hypoxic brain injury as head CTs show no signs of cerebral edema. On Phenobarb for seizure control--apprec neuro--if needed, will consult psych for alternative meds to help
with agitation while being weaned
Persistent Afib - ECG showing afib w/ rate control on lopressor 25mg q6 via tubes-- Cardiology following--last Eliquis dose 03/28--now on intermediate dose lovenox 40mg Q12
Upper GI Bleed w/ Epistaxis resulting in Acute blood loss anemia - patient's last dose Eliquis Friday03/28/24 morning; stopped himself due to bleeding--S/p 1u pRBCs. Will continue to monitor H&H. Transfuse if hgb <7- s/p TXA & cauterization for
epistaxis. No signs of active bleeding on exam, monitoring hgb as above- Abd ultrasound showing Hepatic fatty infiltration- c/w IV protonix per GI--apprec GI/ENT
acute on chronic HFrEF - Lopressor 25q6 per cardiology. Echo showing EF of 30-35% with global hypokinesis w/ small pericardial effusion. Continue w/ gentle diuresis.
Hyperglycemia - initiated LD ISS for glucose management --likely due to tube feeds
Hyponatremia (resolved) - Up to 132 this AM. Off fluids. Assess volume status and replete as needed.
Hyperbilirubinemia (resolved) - elevated since admission, possible component of hemolysis vs. Gilbert's Disease. Resolved now.
Transaminitis, likely alcoholic fatty liver, possible compounding shock liver (resolved) - Elevated AST/ALT on admission 2:1. history of alcohol use and obesity, possible chronic elevation from fatty liver vs. shock liver. Will continue to monitor.
AST/ALT normalized.
Lactic Acidosis (resolved) - was elevated immediately post cardiac arrest, has come back down to normal. Blood gas showed metabolic acidosis without respiratory compensation; now normal pH.
Elevated troponins (resolved)- peaked, likely secondary to cardiac arrest.
Asthma - per mother at bedside patient has been using his inhaler more frequently for night time shortness of breath. 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 sleep apnea vs. worsening Asthma, however history uncertain. Will continue to observe.
patient currently intubated, will reassess when medically stable.
Bipolar Disorder - patient was on Lexapro but stopped on his own due to weight gain (obtained from mother at bedside). Presently patient is sedated, can consider psych consult in the future depending on patient status.
DVT Proph - SCDs
Code Status - Full Code
Total Critical Care Time 31 minutes. I was immediately available to the patient and staff. I personally examined, reviewed labs, diagnostic images/reports, interpretations, treatment plans, discussed patient care with other providers and family
or caregivers (if patient is unable to make decisions), entered orders as appropriate and documented the medical record.
Original Note:
Today's Communication/Plan
-
C/w remdesivir. Weaning and extubation per tar leveler team.
Assessment / Plan
Assessment / Plan
38 year old male
#Sepsis, likely secondary to COVID-19 Infection - Febrile for several days without white count, initially thought propofol rxn vs. bacterial infection, however repeat covid test on 03/28/24 positive. Added Remdesivir + Decadron, stopped zosyn.
Hypothermic 96.6 F, tachycardic 102, source of infection COVID 19.
- c/w Remdesivir, off decadron as patient is not wheezing.
#Superficial Venous Thrombus - swelling in L arm near peripheral line, US confirmed L basilic vein thrombosis. Line removed. Will observe.
#Possible Aspiration Pneumonia, likely prior to admission and worsened since admission
- CXR since admissions progressed, with most recent showing small R and small-moderate L pleural effusions w/ associated atelectasis and/or pneumonia.
- Blood cx NGTD x 48hrs, sputum cx showing usual yvette. COVID/Flu on admission negative.
- ID following.
#Vtach Cardiac Arrest w/ CPR
- CXR did not show any osseous abnormalities. TTM not initiated due to UGI bleed. Weaned off pressure supports. Head CT showed atrophy and EEG showed diffuse cortical dysfunction without focal abnormality and no seizure activity.
- Currently sedated, on propofol ggt & fentanyl ggt, BID seroquel, however patient is still violent/aggressive when attempting to wean.
- Weaning of sedation and ventilation per tar leveler team.
- May consider psych consult for addition of medications to assist in stabilizing patient's aggression to facilitate extubation
#Alcohol Use Disorder w/ possible withdrawal seizure
- MSAS protocol. Getting thiamine and Folic acid, Ativan per protocol, however patient currently sedated. Will be mindful of possible withdrawal as he is weaned off sedation. Attempts to wean thus far have resulted in myoclonic movements; more
likely withdrawal seizures vs hypoxic brain injury as head CTs show no signs of cerebral edema. On Phenobarb for seizure control.
- Neuro following.
#Persistent Afib - ECG showing afib w/ rate control on Lopressor 25mg q6 via tubes. Cardiology following.
#Upper GI Bleed w/ Epistaxis
#Acute blood loss anemia (resolved)
- patient's last dose Eliquis Friday morning; stopped himself due to bleeding. S/p 1u pRBCs.
- s/p TXA & cauterization for epistaxis. No signs of active bleeding on exam. Nasal packing removed.
- Will continue to monitor H&H. Transfuse if hgb <7.
- c/w IV protonix per GI.
#HFrEF - Lopressor 25q6 per cardiology. Echo showing EF of 30-35% with global hypokinesis w/ small pericardial effusion.
#Elevated Glucose - initiated LDISS for glucose management
#Hyponatremia (resolved) - Up to 132 this AM. Off fluids. Assess volume status and replete as needed.
#Hyperbilirubinemia (resolved) - possible component of hemolysis vs. Gilbert's Disease. Resolved now.
#Transaminitis, likely alcoholic fatty liver, possible compounding shock liver (resolved) - Elevated AST/ALT on admission 2:1. history of alcohol use and obesity, possible chronic elevation from fatty liver vs. shock liver. AST/ALT normalized.
#Lactic Acidemia (resolved) - was elevated immediately post cardiac arrest, has come back down to normal. Blood gas showed metabolic acidosis without respiratory compensation; now normal pH.
#Elevated troponins (resolved)- peaked, likely secondary to cardiac arrest.
#Asthma - per mother at bedside patient has been using his inhaler more frequently for night time shortness of breath. 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 sleep apnea vs. worsening Asthma, however history uncertain. Will continue to observe.
patient currently intubated, will reassess when medically stable.
#Bipolar Disorder, uncertain - patient's mother states he was on Lexapro but stopped on his own due to weight gain. Presently patient is sedated, can consider psych consult in the future depending on patient status.
Diet - NPO
DVT Ppx - SCDs
GI Ppx - Protonix 40 BID IV
Code Status - Full Code
Anticipated Discharge: > 48 hours
Subjective/Interval History
-
Required a bolus of fentanyl overnight during washing, but was otherwise stable. Unable to wean any lower; currently on 30mcg propofol ggt and 200 fentanyl ggt.
Objective Data
-
Labs:
Laboratory Results
04/01/24
04:36
WBC 7.7
Hgb 8.4 L
Hct 26.2 L
Plt Count 326
Sodium 136
Potassium 4.4
Chloride 97 L
Carbon Dioxide 31 H
BUN 18
Creatinine 0.6 L
Glucose 100 H
Calcium 7.5 L
Total Bilirubin 0.9
AST 67 H
ALT 32
Alkaline Phosphatase 88
Vital Signs:
Vital Signs
Temp Pulse Resp BP Pulse Ox
100.1 F 108 11 127/96 100
04/01/24 04:08 04/01/24 06:00 04/01/24 04:00 04/01/24 06:00 04/01/24 06:00
I&O
03/30/24 03/31/24 04/01/24
06:59 06:59 06:59
Intake Total 2463.0 / 2560.6 2254.0 / 2379.1 2352.4 / 2352.4
Output Total 4245 / 4275 2110 / 2160 3787 / 3787
Balance -1782.0 / -1714.4 144.0 / 219.1 -1434.6 / -1434.6
Review of Systems
-
Unable to obtain full review of systems at this time due to: Patient Intubation
Physical Exam
-
General: No Apparent Distress, Intubated and Obese
HEENT: Normocephalic, Atraumatic, Moist Mucous Membranes, Anicteric, Briar Conjunctivae, PERRLA, Nose Appears Normal and Ears Appear Normal
Respiratory: Rales, Rhonchi and Other (Mechanical Ventilation); Negative Wheezes
Cardiac: S1/S2, Irregular Rhythm and Tachycardic; Negative Murmur
Breast: N/A
GI: Soft, Nontender and Distended
Genito-urinary: Clear Urine and Muniz
Musculoskeletal: No Clubbing, No Cyanosis and No Edema
Skin: Warm, Dry and IV Access / Catheter Site
Neuro: Sedated
--- NOTE | 2024-04-01 07:45 | PTCARENOTE ---
Assumed care of patient. Pt rec'd in 4 point soft restraints and sedated. Opens eyes...does not track or follow commands. Able to move extremities. S1 S2 irregular ... afib on monitor. +PP. +1-2 generalized edema. Arms and legs elevated on
pillows. Intubated w/ #8 ETT...25cm left lip. Current vent settings: 14/450/+5/40%...sats 98%. Lungs diminished and coarse posteriorly. Suctioned orally and via ETT for moderate thick norris secretions. OG at 62cm....Jevity 1.5 @ 55ml/hr &
25ml/hr H20 flushes...prosource given. FMS draining small amt of liquid brown stool. Murguia draining yellow/aj urine...murguia care done. Skin intact w/ abdominal ecchymosis and scattered forearm ecchymosis. Right DL PICC w/ fentanyl and
diprivan gtts infusing...see interventions. VS documented. Safe environment confirmed. Will continue to monitor closely.
[2024-04-01] MEDS: SEROQUEL 100 MG TUBE ×2 (07:54→19:45)
[2024-04-01] MEDS: VITAMIN B1 100 MG PO ×2 (07:54→19:45)
[2024-04-01] MEDS: FOLVITE 1 MG PO (07:55)
[2024-04-01] MEDS: LASIX 40 MG IV (07:55)
[2024-04-01] MEDS: DUONEB 3 ML INH ×4 (08:01→20:40)
[2024-04-01] MEDS: NSS (PRESERVATIVE FREE) 10 ML IV ×3 (08:01→21:24)
[2024-04-01] MEDS: PROTONIX IV 40 MG IV ×2 (08:01→19:45)
[2024-04-01] MEDS: FLOVENT 220 MCG INHALER 2 PUFF INH ×2 (08:02→20:40)
[2024-04-01] MEDS: LOVENOX 40 MG SC ×2 (08:05→19:45)
--- NOTE | 2024-04-01 08:08 | W.PN.INTV ---
Today's Communication / Plan
Recommendations
Transition back to volume-cycled ventilation, failed attempted wean
Continue sedation
Check UA, blood cultures, sputum culture
Question drug fever?
Continue tube feeds
Increase Lopressor dosing
Assessment
-
Assessment: 38-year-old male non-smoker with a past medical history of persistent A-fib on Eliquis, bipolar affective disorder, asthma, and hypertension who presented with vomiting blood 1 day prior to arrival with dark stools as well as a
nosebleed. He has been having fatigue, shortness of breath and confusion with chest pain. He is normally on Eliquis but he has been holding it for few days due to his bleeding. He does follow-up with cardiology with last visit on 02/17/[address] Phillips. He has a history of nonischemic cardiomyopathy with prior EF of 20-25% with global hypokinesis from echo in December 2023. He was discussing getting an ablation for his A-fib. He has a history of cardioversion x 2 with failure to
restore into sinus rhythm. Also it has been difficult to choose an antiarrhythmic drug in the setting of his lithium drug use with risk of QT prolongation. In the ER he told the doctor he has been having a bloody nose which started on the day of
ER arrival, and has been vomiting bright red blood with dark tarry stools for 1 week. Last dose of Eliquis was on Friday (03/21/2024). In the ER he was afebrile to 97.1 �F, pulse rate 97, breathing at 20 breaths/minute, BP 129/83 and saturating 98%
on room air. Initial labs showed Hb 8.9, platelet count 115, sodium 123, chloride 87, BUN 33, serum osmolarity 302, and urinalysis negative for signs of UTI. Initial CXR showed suspected small right pleural effusion with possible pneumonia in the
right middle lobe. He was initially admitted to the IMU for a GI bleed with epistaxis. Overnight he was agitated and required Precedex drip so was transferred to the ICU, and developed a cardiac arrest while trying to get up out of bed. He was
labeled DNR however when the ICU DYE BOARDING MACHINE OPERATOR call the family this was reversed, and CPR/ACLS was initiated. He was given an amp of epinephrine and pulse was regained and then he became bradycardic and lost pulse again. CPR resumed and given 2 A of epi and
patient was intubated. ROSC regained. Due to his prearrest seizure-like activity, neurology was called and empiric Keppra was given. TTM was not started given his acute upper GI bleed and epistaxis. He has continued to be managed in the ICU and
switch coupler services consulted for additional management/recommendations.
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
Impression:
#Hemorrhagic shock - shock state now resolved
#In-hospital cardiac arrest with preceding seizure-like activity (withdrawal seizure vs myoclonic jerks)
#Acute blood loss anemia due to reported epistaxis and UGIB with hematemesis
#Acute respiratory failure with hypoxia now on mechanical ventilation (intubated 03/24/2024)
#RUL + bilateral lower lobe pneumonia (confirmed on CT Chest from 03/24/2024)
#Acute thrombocytopenia
#Alcoholism with use of alcohol use drinking vodka daily as well as wine
#Suspected alcohol withdrawal seizure
#History of anxiety
#Metabolic acidosis with increased anion gap + respiratory acidosis - acidosis now resolved
#Lactic acidosis � now resolved
#Hypochloremic, hyponatremia � now resolved
#Hyperglycemia � now resolved
#Transaminitis with hyperbilirubinemia
#Elevated troponin likely due to cardiac arrest
#Chronic HFrEF with RV dysfunction seen on TTE from 03/24/2024
Plan/recommendations:
At this time, patient remains critically ill
Unfortunate, did not tolerate transition to ASV with dyssynchrony, tachycardia, tachypnea
Also developed fever to 102
Increase secretions noted per respiratory care
Remains on propofol/fentanyl
CT chest 03/28/2024 with bibasilar consolidation, possible pneumonia left greater than right
Chest x-ray 03/31 much improved with improved aeration bilaterally
CXR 04/01 without acute findings
Moving forward
Continue with volume-cycled ventilation
At this switch from ASV back to volume-cycled ventilation
AC 14/450/5/40%
PPK 33, Pplat 20
Maintain sedation for now
Remains on propofol, fentanyl, Ativan as needed
Continue DuoNebs, Flovent. Patient with history of asthma
Follow airway pressures
Patient presented with bloody emesis, dark stool
Tolerating tube feeds
Patient had bowel movement 03/29
Abdominal x-ray unremarkable
Abdomen is benign, soft
Tolerating tube feeds
ID following
Patient remains on Augmentin, recent episode of epistaxis noted, nasal packing in place
Was on Zosyn, now discontinued
Remdesivir continues
Fevers now returned
Decadron discontinued 03/30
No significant hypoxia at this time. Will follow
Chest x-ray without acute findings
Check sputum culture, UA, blood cultures
Question fever, drug fever, quetiapine?
Patient with significant intermittent agitation
Head CT without acute findings
Patient with episode of PEA, seizure activity
Neurology was following, EEG without evidence of seizures
Remains on phenobarbital, per neuro recommendations
Continue with folic acid, thiamine
History of alcohol abuse noted, last drink 03/22
Remains on Seroquel, 100 mg twice a day
Follow QTc, EKG4 467. Follow-up with telemetry, reviewed with nursing
Lasix therapy continues, beta-kevin noted
Eliquis remains on hold, last dose 03/21. Significant epistaxis noted
Required transfusion 03/23
ENT also following
Negative fluid balance continues
We will restart beta-kevin therapy, may be contributing to tachycardia
Echo 03/24/2024
EF 30%, global hypokinesis, enlarged RV size with reduced function, PA pressure 30
Diuresis continues
Remains on Lopressor every 6 hours 25 mg, increase dosing
Lopressor as needed
Atrial fibrillation continues
Cardiology following
check bilateral lower extremity Dopplers
Follow blood sugars
Patient with bloody emesis and tarry stool prior to admission
Hemoglobin stable at 7.8, transfuse 1 unit 03/23
Abdominal ultrasound with hepatic infiltration, no evidence of cirrhosis
GI following, last seen 03/25, signed off
Recommended to continue pantoprazole twice daily
EGD was not pursued
Hold bowel regimen, now with loose stool
GI prophylaxis: On pantoprazole
DVT prophylaxis: Lovenox 40 mg every 12 hours
Follow electrolytes
Agitation continues to be an issue
Patient drinks half a bottle of vodka according to mother
Last drink 03/22/2024
Sedation vacation as able
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
GI prophylaxis: Remains on Protonix twice daily
Critical care statement: A total of 40 minutes of critical care time was provided for this patient today. This includes management of unstable vital signs, evaluation of the patient at bedside, reviewing the patient's pertinent medical records
including radiographs, microbiology, laboratory evaluations, and discussion with primary team, consultants, pharmacy, nutrition, physical therapy, case management, charge nurse, critical care nursing, and respiratory therapy.
Data:
CXR 03/24/2024:
New mild right upper lobe airspace disease concerning for developing pneumonia.
Possible developing pneumonia in the right costophrenic angle versus atelectasis. Progressed. Mild.
Tiny right pleural effusion. Progressed.
Cardiomegaly. Stable.
CXR 03/27/2024:
1. Moderate cardiomegaly. Mild pulmonary edema.
2. Suspected small bilateral pleural effusions. Left lower lobe airspace disease may also be present.
CXR 03/28/2024: Mild to moderate CHF, slightly progressed. Small right and yzofl-ub-ygwyipfy left pleural effusions with associated atelectasis and/or pneumonia, progressed.
CT chest/abdomen/pelvis without contrast 03/24/2024:
Moderate bibasilar consolidation. This may represent atelectasis or pneumonia.
Bilateral lower lobe, lingular and right upper lobe atelectasis versus scarring.
Small pericardial effusion.
Findings suggesting mild volume overload or third spacing.
Minimal diverticulosis.
Subjective Dataa
Subjective Data
Date of Service:
Date of Service: April 01, 2024
Chief Complaint: Leather Scrubber Follow Up
Subjective:
Patient remains critically ill. Unfortunate did not tolerate transition to ASV mode this morning, he became tachypneic, tachycardic, dyssynchronous with ventilator. Also developed fever to 102 during attempted wean.
Objective Data
Data Reviewed
Vital Signs / I&O / Oxygen:
Vital Signs
Temp Pulse Resp BP Pulse Ox
100.1 F 115 11 130/91 100
04/01/24 04:08 04/01/24 07:55 04/01/24 04:00 04/01/24 07:55 04/01/24 06:00
Intake and Output
03/31/24 04/01/24 04/02/24
06:59 06:59 06:59
Intake Total 2254.0 / 2379.1 2352.4 / 2477.5 125.1 / 125.1
Output Total 2110 / 2160 3787 / 3817
Balance 144.0 / 219.1 -1434.6 / -1339.5 95.1 / 95.1
SaO2 [CPAP/PSV] 100
SaO2 [A/C] 97
SaO2 100
Physical Exam
General: Comfortable
HEENT: Normocephalic, Anicteric, Other (Thick neck) and Other (ETT in place)
Cardiovascular: S1-S2, Regular Rhythm (Tachycardic), Murmur (n), Rub (n), Peripheral Edema (Trace lower extremity edema bilaterally) and Other (Right upper extremity PICC line)
Respiratory: Wheeze (negative), Crackles (few), Rhonchi (negative), Non-Labored Respirations, Stridor (n) and ET Tube (Mechanical breath sounds heard bilaterally)
GI: Soft, Distended (Abdominal obesity), Non Tender and Normal Bowel Sounds
Neurology: Lethargic (Sedated. Moving all extremities, not following commands)
Skin: Warm, Dry, Cyanosis (negative), Jaundice (negative) and Rash (negative)
Labs/Micro/Reports
Lab Data
04/01/24 04:36
04/01/24 04:36
Microbiology
03/27/24 09:01 Blood/Venous Blood Culture - Preliminary
No Growth in 4 days- Final report to follow
03/27/24 09:01 Blood/Venous Blood Culture - Preliminary
No Growth in 4 days- Final report to follow
03/27/24 17:30 Sputum Respiratory Culture - Final
Usual Respiratory Michelle
03/27/24 17:30 Sputum Gram Stain - Final
[2024-04-01] MEDS: LOPRESSOR 5 MG IV ×2 (08:44→11:41)
[2024-04-01 10:00] LABS: HCO3 36.1 mmol/L (21-28); O2 Saturation % 99.5 % (94-98); PCO2 57 mmHg (35-48); PO2 157 mmHg (83-108); pH 7.41 (7.35-7.45)
--- NOTE | 2024-04-01 10:36 | W.PN.ID1 ---
Date of Service
Date of Service: April 01, 2024
Today's Communication
Start cefepime.
Assessment / Plan
# Recurrence of fever today
# VDRF: failed wean trial
- Repeating bcx, sputum cx today
-UA neg
- Start cefepime pending culture data
- Follow temps.
# COVID infection
-03/28/24 COVID ag positive
- Unvaccinated
- Continue Remdesivir, day 4 of 5
- Off dexamethasone
- Continue COVID isolation.
# s/p UGI bleed/hematemesis
# Epistaxis - packing removed 03/29
# Alcohol withdrawal
# s/p PEA cardiac arrest
# Acute on chronic CHF, pro-BNP >2000
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
Afib on Eliquis
HTN
HFrEF
anxiety
bipolar disorder
Substance abuse in the past
ETOH abuse
Robotic asst lap LACY umbilical/ventral hernia repair w mesh (04/18/2022)
Chief Complaint
-: Fever
Subjective / Review of Systems
Failed wean today with tachypnea, tachycardia, and fever.
Vital Signs / Physical Exam
Vital Signs
Vital Signs
Temp Pulse Resp BP Pulse Ox
100.7 F H 134 11 158/108 95
04/01/24 08:00 04/01/24 08:44 04/01/24 04:00 04/01/24 08:44 04/01/24 08:15
Physical Exam
Constitutional: Acutely Ill
Eyes: Sclera Anicteric
Cardiovascular: Other (tachycardic)
Pulmonary: Rhonchi
Gastrointestinal: Soft, Non Tender and Non Distended
Extremities: Negative Edema
Objective Data
Lab Data
Lab Results
04/01/24 04:36
04/01/24 04:36
PT 15.9 Sec (11.4-14.6) H 03/25/24 04:16
INR 1.24 03/25/24 04:16
APTT 26.3 Sec (23.4-35.0) 03/24/24 03:19
Estimated Creat Clear > 125 ml/min 04/01/24 04:36
Lactic Acid 1.1 mmol/L (0.7-2.0) 03/24/24 09:25
Total Bilirubin 0.9 mg/dl (0.2-1.3) 04/01/24 04:36
AST 67 U/L (17-59) H 04/01/24 04:36
ALT 32 U/L (0-50) 04/01/24 04:36
Alkaline Phosphatase 88 U/L (38-126) 04/01/24 04:36
Most recent labs reviewed.
Micro Results:
03/27/24 09:01 Blood Culture - Final
Blood/Venous No Growth - Final Report
03/27/24 09:01 Blood Culture - Final
Blood/Venous No Growth - Final Report
03/27/24 17:30 Respiratory Culture - Final
Sputum Usual Respiratory Michelle
Gram Stain - Final
03/28/24 15:21 Influenza Types A & B (TAYE) - Final
Nasal Swab Negative for Influenza A & B, NAAT
Negative results must be combined with clinical observations
and patient history.
Nucleic Acid Amplification test (NAAT)performed on the
[employer] platform.
03/25/24 13:46 Respiratory Culture - Final
Endotracheal Usual Respiratory Michelle
Gram Stain - Final
03/26/24 03:45 Legionella Urinary Antigen - Final
Urine Negative for Legionella pneumophila Serogroup 1 antigen.
A negative result does not rule out the possiblity of
Legionella infection due to other serogroups or species of
Legionella. Clinical correlation is recommended.
Streptococcus pneumoniae Antigen (M - Final
Negative for Streptococcus pneumoniae antigen.
A negative result does not exclude infection with
Streptococcus pneumoniae. Clinical correlation is
recommended.
03/24/24 17:54 Legionella Urinary Antigen - Final
Urine Negative for Legionella pneumophila Serogroup 1 antigen.
A negative result does not rule out the possiblity of
Legionella infection due to other serogroups or species of
Legionella. Clinical correlation is recommended.
Streptococcus pneumoniae Antigen (M - Final
Negative for Streptococcus pneumoniae antigen.
A negative result does not exclude infection with
Streptococcus pneumoniae. Clinical correlation is
recommended.
04/01/24 CXR: No radiographically demonstrable pneumonia.
03/31/24 CXR: Resolved CHF versus acute pulmonary edema in the interval since prior study.
03/29/24 Periph Vasc US: Occlusive thrombus formation in the left basilic vein
03/28/24 CXR: Mild to moderate CHF, slightly progressed. Small right and cexyo-fe-xozoozde left pleural effusions with associated atelectasis and/or pneumonia, progressed.
03/27/24 CXR: Moderate cardiomegaly. Mild pulmonary edema. Suspected small bilateral pleural effusions. Left lower lobe airspace disease may also be present.
03/27/24 AXR: Nonspecific bowel gas pattern without signs of obstruction.
03/24/24 CT a/p: Moderate bibasilar consolidation. This may represent atelectasis or pneumonia. Bilateral lower lobe, lingular and right upper lobe atelectasis versus scarring. Small pericardial effusion. Findings suggesting mild volume overload or
third spacing.
[2024-04-01 11:15] LABS: Urine Albumin 1+ (Neg - Trace); Urine Bilirubin Negative (Negative); Urine Character Clear (Clear); Urine Color Yellow; Urine Glucose Negative (Negative); Urine Ketone Negative (Negative); Urine Leukocyte Negative (Negative); Urine Nitrite Negative (Negative); Urine Occult Blood Negative (Negative); Urine Urobilinogen 2+ (Neg - 1+)
[2024-04-01 11:25] LABS: Urine Bacteria Few (Negative); Urine Red Blood Cell 0-2 /HPF (0-2); Urine White Cell 0-2 /HPF (0-5)
[2024-04-01 11:34] LABS: Glucose - Point of Care 103 mg/dl (70-99)
[2024-04-01] MEDS: VEKLURY 250 MG IV (11:42)
--- NOTE | 2024-04-01 12:00 | PTCARENOTE ---
No major change in physical assessment. Resp cx, urinalysis, and blood culture x 1 sent per MD. Failed ASV wean this am. Able to wean for approximately 2 hrs but pt was tachycardic w/ variable POX. Temp increased to 102.2 max...tylenol provided.
aware. Pt placed back on AC settings. Will continue to monitor.
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
--- NOTE | 2024-04-01 15:16 | CM ---
Patient in COVID restrictions, on vent. Patient disposition uncertain pending functional status and ability to get off of the ventilator. CM will continue to follow for discharge planning needs.
Plan; TBD
[2024-04-01] MEDS: STERILE WATER FOR INJECTION 10 ML IV ×2 (15:25→23:45)
[2024-04-01] MEDS: MAXIPIME 2000 MG IV ×2 (15:25→23:45)
[2024-04-01] MEDS: ATIVAN 1 MG IV ×2 (15:31→21:23)
--- NOTE | 2024-04-01 16:00 | PTCARENOTE ---
Attempted to wean fentanyl to 175mcg. After approximately 1-1-1/2hrs pt became dyssynchronous w/ vent...tachycardia...and agitation noted. Fent bolus given and gtt increased to 200mcg. Ativan 1mg IV given. Currently...pt resting comfortably. No
major changes in physical assessment. VS documented. Safe environment confirmed. Will continue to monitor.
[2024-04-01 18:02] LABS: Glucose - Point of Care 114 mg/dl (70-99)
--- NOTE | 2024-04-01 20:00 | PTCARENOTE ---
rec`d pt at 1900. intubated and sedated on prop and fent going through rt DL PICC. 4 point soft restraints does not track or follow commands. JAY. afib on monitor. +Pulses +1-2 generalized edema. #8 ETT...25cm . vent settings:
14/450/+5/40%...sats 98%. coarse lung sounds. thick norris secretions. OG at 62cm, TF Jevity 1.5 @ 55ml/hr & 25ml/hr. FMS in place. Muniz draining aj urine. Safe environment maintained. family at bedside.
[2024-04-01 23:55] LABS: Glucose - Point of Care 112 mg/dl (70-99)
[2024-04-02] VITALS (25 sets, daily range): BP systolic 92–120; BP diastolic 64–97; BMI 38.6
--- NOTE | 2024-04-02 01:00 | PTCARENOTE ---
no changes in pt assessment. safe environment maintained.
[2024-04-02] MEDS: SUBLIMAZE 100 IV ×5 (01:46→22:56)
[2024-04-02] MEDS: DIPRIVAN 100 IV ×5 (01:49→22:58)
[2024-04-02] MEDS: LOPRESSOR 25 MG TUBE ×2 (04:41→08:39)
[2024-04-02 04:48] LABS: % Eosinophils 2.9 % (0-6); % Immature Granulocytes 0.5 % (0-0.5); % Lymphocytes 10.6 % (20.5-51.1); Absolute Basophils 0.1 10^3/uL (0-0.2); Absolute Eosinophils 0.3 10^3/uL (0-0.7); Absolute Immature Granulocytes 0.1 10^3/uL (0-0.05); Absolute Lymphocytes 1.2 10^3/uL (1.2-3.4); Absolute Neutrophils 8.3 10^3/uL (1.4-6.5); Hematocrit 26.8 % (39.0-52.0); Hemoglobin 8.2 g/dL (13.0-18.0); Mean Corp Hgb Conc. 30.6 g/dL (33.0-37.0); Mean Corpuscular Hgb 28.9 pg (27.0-31.0); Mean Corpuscular Volume 94.4 fL (80.0-94.0); Mean Platelet Volume 10.2 fL (7.4-10.4); Nucleated Red Blood Cells % 0 % (-); Platelet Count 331 10^3/uL (130-400); Red Blood Cell Count 2.84 10^6/uL (4.70-6.10); Red Cell Dist. Width 15.5 % (11.5-14.5)
[2024-04-02 05:13] LABS: ALT (SGPT) 28 U/L (0-50); AST (SGOT) 54 U/L (17-59); Albumin 2.9 g/dl (3.5-5.0); Alkaline Phosphatase 104 U/L (38-126); Blood Urea Nitrogen 14 mg/dl (9-20); Calcium 7.7 mg/dl (8.4-10.2); Carbon Dioxide 38 mmol/L (22-30); Chloride 96 mmol/L (98-107); Estimated Creatinine Clearance > 125 ml/min; Glucose 114 mg/dl (70-99); Potassium 4.2 mmol/L (3.5-5.1); Sodium 138 mmol/L (135-145); Total Bilirubin 0.9 mg/dl (0.2-1.3); Total Protein 5.4 g/dl (6.3-8.2); Triglycerides 114 mg/dl (10-149); eGFR > 60.00
[2024-04-02] MEDS: SUBLIMAZE 50 MCG IV ×2 (05:22→17:36)
[2024-04-02] MEDS: TYLENOL ORAL SOLUTION 650 MG TUBE ×2 (05:47→11:49)
--- NOTE | 2024-04-02 06:41 | W.PN.HOSP.TC ---
Addendum entered and electronically signed by Makayla Davis MD 04/02/24 14:03:
I saw and evaluated the patient. I reviewed the resident�s note and agree with findings and plan as documented in the resident�s note.
A/P:
Sepsis, likely secondary to COVID-19 Infection - Febrile for several days without white count, initially thought propofol rxn vs. bacterial infection, however repeat covid test on 03/28/24 positive. Added Remdesivir + Decadron, stopped zosyn.
Hypothermic 96.6, tachycardic 102, source of infection COVID 19. Patient is on mechanical ventilation, receiving antivirals and steroids--apprec classroom technology coach
Restarted cefepime 04/02 by ID
Superficial Venous Thrombus - swelling in L arm near peripheral line, US confirmed L basilic vein thrombosis. Line removed. Will observe. Recc repeat US in 2 weeks.
Aspiration Pneumonia, likely prior to admission and worsened since admission - CXR since admissions progressed, with most recent showing small R and small-moderate L pleural effusions w/ associated atelectasis and/or pneumonia--Blood cx NGTD, sputum
cx showing usual yvette. COVID/Flu on admission negative--apprec ID
Vtach Cardiac Arrest w/ CPR-- CXR did not show any osseous abnormalities. TTM not initiated due to UGI bleed. Weaned off pressure supports. Head CT showed atrophy and EEG showed diffuse cortical dysfunction without focal abnormality and no seizure
activity--- Currently sedated, on propofol ggt & fentanyl ggt, BID seroquel however patient is still violent/aggressive when attempting to wean--- Weaning of sedation and ventilation per classroom technology coach team--apprec cards
Alcohol Use Disorder w/ possible withdrawal seizure-- MSAS protocol. Getting thiamine and Folic acid, Ativan per protocol, however patient currently sedated. Will be mindful of possible withdrawal as he is weaned off sedation. Attempts to wean thus
far have resulted in myoclonic movements; more likely withdrawal seizures vs hypoxic brain injury as head CTs show no signs of cerebral edema. On Phenobarb for seizure control--apprec neuro--if needed, will consult psych for alternative meds to help
with agitation while being weaned
Persistent Afib - ECG showing afib w/ rate control on lopressor now 50mg q6 via tubes and IV Lopressor PRN-- Cardiology following.
Upper GI Bleed w/ Epistaxis resulting in Acute blood loss anemia - patient's last dose Eliquis Friday03/28/24 morning; stopped himself due to bleeding. S/p 1u pRBCs. Continue to monitor H&H. Transfuse if hgb <7- s/p TXA & cauterization for
epistaxis. No signs of active bleeding on exam, monitoring hgb as above- Abd ultrasound showing Hepatic fatty infiltration- c/w IV protonix per GI--apprec GI/ENT
acute on chronic HFrEF - lopressor now 50mg q6 via tubes per cardiology. Echo showing EF of 30-35% with global hypokinesis w/ small pericardial effusion. Continue w/ gentle diuresis.
Hyperglycemia - initiated LD ISS for glucose management
Hyponatremia (resolved) - 138 today. Off fluids. Assess volume status and replete as needed.
Hyperbilirubinemia (resolved) - elevated since admission, possible component of hemolysis vs. Gilbert's Disease. Resolved now.
Transaminitis, likely alcoholic fatty liver, possible compounding shock liver (resolved) - Elevated AST/ALT on admission 2:1. history of alcohol use and obesity, possible chronic elevation from fatty liver vs. shock liver. Will continue to monitor.
AST/ALT normalized.
Lactic Acidosis (resolved) - was elevated immediately post cardiac arrest, has come back down to normal. Blood gas showed metabolic acidosis without respiratory compensation; now normal pH.
Elevated troponins (resolved)- peaked, likely secondary to cardiac arrest.
Asthma - per mother at bedside patient has been using his inhaler more frequently for night time shortness of breath. 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 sleep apnea vs. worsening Asthma, however history uncertain. Will continue to observe.
patient currently intubated, will reassess when medically stable.
Bipolar Disorder - patient was on Lexapro but stopped on his own due to weight gain (obtained from mother at bedside). Presently patient is sedated, can consider psych consult in the future depending on patient status.
DVT Proph - SCDs
Code Status - Full Code
CC Mx 40 min
Original Note:
Today's Communication/Plan
-
Last day remdesivir, c/w IV ABX, weaning sedation/ventilation per classroom technology coach team.
Assessment / Plan
Assessment / Plan
38 year old male
#Persistent Afib - Tachycardic into the 140s, Lopressor changed from q6 to q4 w/ prn
#Sepsis, likely secondary to COVID-19 Infection - Febrile for several days without white count, initially thought propofol rxn vs. bacterial infection, however repeat covid test on 03/28/24 positive. Added Remdesivir + Decadron, stopped zosyn.
Hypothermic 96.6 F, tachycardic 102, source of infection COVID 19.
- c/w Remdesivir (D5 today), off decadron as patient is not wheezing.
#persistent Fevers
- New CXR 04/01 showed no radiographically demonstrable pneumonia. Repeat Blood Cx drawn (pending). Repeat Flu neg. Tracheal aspirate cx (pending).
- started on cefepime.
#Possible Aspiration Pneumonia, likely prior to admission and worsened since admission
- CXR since admissions progressed, with most recent showing small R and small-moderate L pleural effusions w/ associated atelectasis and/or pneumonia.
- Blood cx 03/27 NGTD x 48hrs, sputum cx showing usual yvette. COVID/Flu on admission negative.
- s/p Unasyn 03/26-03/27, switched to Zosyn through 03/28.
#Vtach Cardiac Arrest w/ CPR
- CXR did not show any osseous abnormalities. TTM not initiated due to UGI bleed. Weaned off pressure supports. Head CT showed atrophy and EEG showed diffuse cortical dysfunction without focal abnormality and no seizure activity.
- Currently sedated, on propofol ggt & fentanyl ggt, BID seroquel, however patient is still violent/aggressive when attempting to wean.
- Weaning of sedation and ventilation per classroom technology coach team.
- Failed attempt at weaning to ASV w/ acute cardiorespiratory decompensation
- May consider psych consult for addition of medications to assist in stabilizing patient's aggression to facilitate extubation
#Alcohol Use Disorder w/ possible withdrawal seizure
- MSAS protocol. Getting thiamine and Folic acid, Ativan per protocol, however patient currently sedated. Will be mindful of possible withdrawal as he is weaned off sedation. Attempts to wean thus far have resulted in myoclonic movements; more
likely withdrawal seizures vs hypoxic brain injury as head CTs show no signs of cerebral edema. On Phenobarb for seizure control.
#Superficial Venous Thrombus - swelling in L arm near peripheral line, US confirmed L basilic vein thrombosis. Line removed. Will observe.
#HFrEF - Echo showing EF of 30-35% with global hypokinesis w/ small pericardial effusion. C/w lasix 40mg QD.
#Upper GI Bleed w/ Epistaxis
#Acute blood loss anemia (resolved)
- S/p 1u pRBCs. s/p TXA & cauterization for epistaxis. No signs of active bleeding on exam. Nasal packing removed. Will continue to monitor H&H. Transfuse if hgb <7.
- c/w IV protonix per GI.
#Elevated Glucose - initiated LDISS for glucose management
#Hyponatremia (resolved) - Up to 132 this AM. Off fluids. Assess volume status and replete as needed.
#Hyperbilirubinemia (resolved) - possible component of hemolysis vs. Gilbert's Disease. Resolved now.
#Transaminitis, likely alcoholic fatty liver, possible compounding shock liver (resolved) - Elevated AST/ALT on admission 2:1. history of alcohol use and obesity, possible chronic elevation from fatty liver vs. shock liver. AST/ALT normalized.
#Lactic Acidemia (resolved) - was elevated immediately post cardiac arrest, has come back down. Blood gas showed metabolic acidosis without respiratory compensation; now normal pH.
#Elevated troponins (resolved)- peaked, likely secondary to cardiac arrest.
#Asthma - per mother at bedside patient has been using his inhaler more frequently for night time shortness of breath. 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 sleep apnea vs. worsening Asthma, however history uncertain. Will continue to observe.
patient currently intubated, will reassess when medically stable.
#Bipolar Disorder, uncertain - patient's mother states he was on Lexapro but stopped on his own due to weight gain. Presently patient is sedated, can consider psych consult in the future depending on patient status.
Diet - NPO
DVT Ppx - SCDs
GI Ppx - Protonix 40 BID IV
Code Status - Full Code
Anticipated Discharge: > 48 hours
Subjective/Interval History
-
Extubation was attempted last night, however patient became unstable and had to be reintubated. He remains sedated.
Objective Data
-
Labs:
Laboratory Results
04/02/24
04:38
WBC 11.0 H
Hgb 8.2 L
Hct 26.8 L
Plt Count 331
Sodium 138
Potassium 4.2
Chloride 96 L
Carbon Dioxide 38 H
BUN 14
Creatinine 0.5 L
Glucose 114 H
Calcium 7.7 L
Total Bilirubin 0.9
AST 54
ALT 28
Alkaline Phosphatase 104
Vital Signs:
Vital Signs
Temp Pulse Resp BP Pulse Ox
100.5 F H 111 14 115/84 97
04/02/24 05:30 04/02/24 02:00 04/02/24 02:00 04/02/24 05:00 04/02/24 04:25
I&O
03/31/24 04/01/24 04/02/24
06:59 06:59 06:59
Intake Total 2254.0 / 2379.1 2352.4 / 2477.5 3347.4 / 3347.4
Output Total 2110 / 2160 3787 / 3817 2510 / 2510
Balance 144.0 / 219.1 -1434.6 / -1339.5 837.4 / 837.4
Review of Systems
-
Unable to obtain full review of systems at this time due to: Patient Intubation (Sedated) and Other
Physical Exam
-
General: Well Developed, Well Nourished, Intubated, Appears Chronically Ill and Morbidly Obese
HEENT: Normocephalic, Atraumatic, Moist Mucous Membranes, Anicteric, [place] Conjunctivae, PERRLA, Nose Appears Normal and Ears Appear Normal
Respiratory: Crackles and Other (Mechanical breath sounds); Negative Wheezes or Rhonchi
Cardiac: S1/S2, Irregular Rhythm and Tachycardic; Negative Murmur
GI: Soft, Normal Bowel Sounds and Distended
Rectal: Other (brown liquid stools)
Genito-urinary: Muniz
Musculoskeletal: No Clubbing, No Cyanosis and No Edema
Skin: Warm, Dry and IV Access / Catheter Site
Neuro: Sedated
--- NOTE | 2024-04-02 07:52 | W.PN.INTV ---
Today's Communication / Plan
Recommendations
Continue with beta-kevin therapy, tachycardia appears to be improved
Briefly was following commands today with nursing, good sign? Followed by agitation
Will attempt aggressive CPAP wean tomorrow with sedation vacation
Continue tube feeds
Continue sedation for now
follow hemoglobin
Remains on DVT prophylaxis
Assessment
-
Assessment: 38-year-old male non-smoker with a past medical history of persistent A-fib on Eliquis, bipolar affective disorder, asthma, and hypertension who presented with vomiting blood 1 day prior to arrival with dark stools as well as a
nosebleed. He has been having fatigue, shortness of breath and confusion with chest pain. He is normally on Eliquis but he has been holding it for few days due to his bleeding. He does follow-up with cardiology with last visit on 02/17/[address] Phillips[address] He has a history of nonischemic cardiomyopathy with prior EF of 20-25% with global hypokinesis from echo in December 2023. He was discussing getting an ablation for his A-fib. He has a history of cardioversion x 2 with failure to
restore into sinus rhythm. Also it has been difficult to choose an antiarrhythmic drug in the setting of his lithium drug use with risk of QT prolongation. In the ER he told the doctor he has been having a bloody nose which started on the day of
ER arrival, and has been vomiting bright red blood with dark tarry stools for 1 week. Last dose of Eliquis was on Friday (03/21/2024). In the ER he was afebrile to 97.1 �F, pulse rate 97, breathing at 20 breaths/minute, BP 129/83 and saturating 98%
on room air. Initial labs showed Hb 8.9, platelet count 115, sodium 123, chloride 87, BUN 33, serum osmolarity 302, and urinalysis negative for signs of UTI. Initial CXR showed suspected small right pleural effusion with possible pneumonia in the
right middle lobe. He was initially admitted to the IMU for a GI bleed with epistaxis. Overnight he was agitated and required Precedex drip so was transferred to the ICU, and developed a cardiac arrest while trying to get up out of bed. He was
labeled DNR however when the ICU [employer] call the family this was reversed, and CPR/ACLS was initiated. He was given an amp of epinephrine and pulse was regained and then he became bradycardic and lost pulse again. CPR resumed and given 2 A of epi and
patient was intubated. ROSC regained. Due to his prearrest seizure-like activity, neurology was called and empiric Keppra was given. TTM was not started given his acute upper GI bleed and epistaxis. He has continued to be managed in the ICU and
search analyst services consulted for additional management/recommendations.
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
Impression:
#Hemorrhagic shock - shock state now resolved
#In-hospital cardiac arrest with preceding seizure-like activity (withdrawal seizure vs myoclonic jerks)
#Acute blood loss anemia due to reported epistaxis and UGIB with hematemesis
#Acute respiratory failure with hypoxia now on mechanical ventilation (intubated 03/24/2024)
#RUL + bilateral lower lobe pneumonia (confirmed on CT Chest from 03/24/2024)
#Acute thrombocytopenia
#Alcoholism with use of alcohol use drinking vodka daily as well as wine
#Suspected alcohol withdrawal seizure
#History of anxiety
#Metabolic acidosis with increased anion gap + respiratory acidosis - acidosis now resolved
#Lactic acidosis � now resolved
#Hypochloremic, hyponatremia � now resolved
#Hyperglycemia � now resolved
#Transaminitis with hyperbilirubinemia
#Elevated troponin likely due to cardiac arrest
#Chronic HFrEF with RV dysfunction seen on TTE from 03/24/2024
Plan/recommendations:
At this time, patient remains critically ill
He does follow some commands and tracks according to nursing throughout the day
But then gets agitated, tachycardic
Fever in last 24 hours noted, 102.2
Increase secretions noted per respiratory care
Remains on propofol/fentanyl
CT chest 03/28/2024 with bibasilar consolidation, possible pneumonia left greater than right
Chest x-ray 03/31 much improved with improved aeration bilaterally
CXR 04/01 without acute findings
ABG on ASV 7.41/57/157
Moving forward
Continue with volume-cycled ventilation
AC 14/450/5/40%
PPK 34, Pplat 18
Maintain sedation for now
Still with increased airway resistance
Remains on propofol, fentanyl, Ativan as needed
Continue DuoNebs, Flovent. Increase to 4 puffs twice a day
patient with history of asthma
Follow airway pressures
Patient presented with bloody emesis, dark stool
Tolerating tube feeds
Patient had bowel movement 03/29
Abdominal x-ray unremarkable
Abdomen is benign, soft
Tolerating tube feeds
ID following
Patient remains on Augmentin, recent episode of epistaxis noted, nasal packing in place
Was on Zosyn, now discontinued
Remdesivir continues
Fevers now returned
Decadron discontinued 03/30
No significant hypoxia at this time. Will follow
Chest x-ray without acute findings
Check sputum culture, UA, blood cultures
Question fever, drug fever, quetiapine?
Patient with significant intermittent agitation
Head CT without acute findings
Patient with episode of PEA, seizure activity
Neurology was following, EEG without evidence of seizures
Remains on phenobarbital, per neuro recommendations
Continue with folic acid, thiamine
History of alcohol abuse noted, last drink 03/22
Remains on Seroquel, 100 mg twice a day
Follow QTc
Lasix therapy continues, beta-kevin noted
Eliquis remains on hold, last dose 03/21. Significant epistaxis noted
Required transfusion 03/23
ENT also following
Negative fluid balance continues
We will restart beta-kevin therapy, may be contributing to tachycardia
Echo 03/24/2024
EF 30%, global hypokinesis, enlarged RV size with reduced function, PA pressure 30
Diuresis continues
Remains on Lopressor, increase dosing per cardiology
Atrial fibrillation continues
Rate seems better controlled throughout the day today
Dopplers negative for DVT
Follow blood sugars
Patient with bloody emesis and tarry stool prior to admission
Hemoglobin stable at 7.8, transfuse 1 unit 03/23
Abdominal ultrasound with hepatic infiltration, no evidence of cirrhosis
GI following, last seen 03/25, signed off
Recommended to continue pantoprazole twice daily
EGD was not pursued
Hold bowel regimen, now with loose stool
GI prophylaxis: On pantoprazole
DVT prophylaxis: Lovenox 40 mg every 12 hours
Follow electrolytes
Agitation continues to be an issue
Patient drinks half a bottle of vodka according to mother
Last drink 03/22/2024
Sedation vacation as able
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
GI prophylaxis: Remains on Protonix twice daily
Critical care statement: A total of 32 minutes of critical care time was provided for this patient today. This includes management of unstable vital signs, evaluation of the patient at bedside, reviewing the patient's pertinent medical records
including radiographs, microbiology, laboratory evaluations, and discussion with primary team, consultants, pharmacy, nutrition, physical therapy, case management, charge nurse, critical care nursing, and respiratory therapy.
Data:
CXR 03/24/2024:
New mild right upper lobe airspace disease concerning for developing pneumonia.
Possible developing pneumonia in the right costophrenic angle versus atelectasis. Progressed. Mild.
Tiny right pleural effusion. Progressed.
Cardiomegaly. Stable.
CXR 03/27/2024:
1. Moderate cardiomegaly. Mild pulmonary edema.
2. Suspected small bilateral pleural effusions. Left lower lobe airspace disease may also be present.
CXR 03/28/2024: Mild to moderate CHF, slightly progressed. Small right and [id number] left pleural effusions with associated atelectasis and/or pneumonia, progressed.
CT chest/abdomen/pelvis without contrast 03/24/2024:
Moderate bibasilar consolidation. This may represent atelectasis or pneumonia.
Bilateral lower lobe, lingular and right upper lobe atelectasis versus scarring.
Small pericardial effusion.
Findings suggesting mild volume overload or third spacing.
Minimal diverticulosis.
Subjective Dataa
Subjective Data
Date of Service:
Date of Service: April 02, 2024
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
Subjective:
Patient remains critically ill. Agitation continues although heart rate improved. Mild to moderate secretions, slightly worse than yesterday. Towards the end of the day, tachycardia seems to be improved. Not requiring pressors
Objective Data
Data Reviewed
Vital Signs / I&O / Oxygen:
Vital Signs
Temp Pulse Resp BP Pulse Ox
100.5 F H 111 14 115/84 97
04/02/24 05:30 04/02/24 02:00 04/02/24 02:00 04/02/24 05:00 04/02/24 04:25
Intake and Output
04/01/24 04/02/24 04/03/24
06:59 06:59 06:59
Intake Total 2352.4 / 2477.5 3347.4 / 3347.4
Output Total 3787 / 3817 2510 / 2510
Balance -1434.6 / -1339.5 837.4 / 837.4
SaO2 [CPAP/PSV] 100
SaO2 [A/C] 40
SaO2 97
Physical Exam
General: Comfortable
HEENT: Normocephalic, Anicteric, Other (Thick neck) and Other (ETT in place)
Cardiovascular: S1-S2, Regular Rhythm (Tachycardic), Murmur (n), Rub (n), Peripheral Edema (Trace lower extremity edema bilaterally) and Other (Right upper extremity PICC line)
Respiratory: Wheeze (negative), Crackles (few), Rhonchi (negative), Non-Labored Respirations, Stridor (n) and ET Tube (Mechanical breath sounds heard bilaterally)
GI: Soft, Distended (Abdominal obesity), Non Tender and Normal Bowel Sounds
Neurology: Lethargic (Sedated. Moving all extremities, not following commands)
Skin: Warm, Dry, Cyanosis (negative), Jaundice (negative) and Rash (negative)
Labs/Micro/Reports
Lab Data
04/02/24 04:38
04/02/24 04:38
Laboratory Results
04/01/24
09:50
pH 7.41
pCO2 57 H
pO2 157 H
HCO3 36.1 H
O2 Delivery Level
Microbiology
04/01/24 11:02 Tracheal Aspirate Gram Stain - Preliminary
04/01/24 11:22 Nasal Swab Influenza Types A & B (TAYE) - Final
Negative for Influenza A & B, NAAT
Negative results must be combined with clinical observations
and patient history.
Nucleic Acid Amplification test (NAAT)performed on the
[employer] platform.
03/27/24 09:01 Blood/Venous Blood Culture - Final
No Growth - Final Report
03/27/24 09:01 Blood/Venous Blood Culture - Final
No Growth - Final Report
03/27/24 17:30 Sputum Respiratory Culture - Final
Usual Respiratory Michelle
03/27/24 17:30 Sputum Gram Stain - Final
[2024-04-02] MEDS: DUONEB 3 ML INH ×4 (08:06→21:24)
[2024-04-02] MEDS: FLOVENT 220 MCG INHALER 4 PUFF INH ×2 (08:06→21:24)
[2024-04-02] MEDS: SEROQUEL 100 MG TUBE ×2 (08:24→19:44)
[2024-04-02] MEDS: VITAMIN B1 100 MG PO ×2 (08:25→19:44)
[2024-04-02] MEDS: FOLVITE 1 MG PO (08:25)
[2024-04-02] MEDS: LASIX 40 MG IV (08:26)
[2024-04-02] MEDS: MAXIPIME 2000 MG IV (08:28)
[2024-04-02] MEDS: LOVENOX 40 MG SC ×2 (08:28→19:45)
[2024-04-02] MEDS: PROTONIX IV 40 MG IV ×2 (08:29→19:45)
[2024-04-02] MEDS: STERILE WATER FOR INJECTION 10 ML IV (08:29)
[2024-04-02] MEDS: NSS (PRESERVATIVE FREE) 10 ML IV ×2 (08:29→19:45)
--- NOTE | 2024-04-02 09:15 | PTCARENOTE ---
Pt received in bed @ 0700, intubated and sedated. B/L soft limb wrist restraints and 4 rails up. Opens yes but does not follow commands; shows ability to move extremities independent of commands. CPOT 2 for tenseness and coughing on ventilator.
Propofol gtt infusing @ 30 mcg/kg/min and Fentanyl gtt infusing @ 200 mcg/hr. A Fib on engine monitor. HR to 120s. Scheduled medications administered. MAP remains > 65 without pressors. +1 generalized anasarca. Weak radial and pedal pulses to
palpitation. ETT #8 @ 25 to right lip. AC (14/450/40%/5+). SaO2 95%. Suctioned for large thick norris sputum. OGT in place with TF at goal. FMS draining liquid brown stool. Muniz catheter with large yellow output. LE peripheral venous ultrasound
completed at bedside.
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
--- NOTE | 2024-04-02 12:04 | PTCARENOTE ---
Pt reassessed. Sustained tachycardia with HR 120s - 130s unresponsive to scheduled medication. PRN Lopressor 5mg IV administered per order. Cardiology notified and Scheduled Metoprolol 25mg Q6H increased to 50mg Q6H. Febrile. Core temp 101.2F. PRN
Tylenol administered.
[2024-04-02] MEDS: LOPRESSOR 50 MG TUBE ×2 (12:25→17:12)
[2024-04-02] MEDS: VEKLURY 250 MG IV (12:25)
[2024-04-02 12:52] LABS: Glucose - Point of Care 130 mg/dl (70-99)
--- NOTE | 2024-04-02 15:15 | PHA.VAN.IN ---
Addendum entered and electronically signed by Maty Gavin [facility] 04/02/24 15:22:
peak - 2.2 @0100
trough -2.2 @0530
Original Note:
Assessment
- Assessment
Renal Function: Appears similar to baseline
Maximum Temperature: 102.2
Minimum Temperature: 98.9
Concomitant Antimicrobials: cefazolin
AUC Dosing Plan
- Dosing Variables
Dosing Weight (kg): 134.4
Dosing CrCl (ml/min): 100
Vd coefficient (L/kg): 0.6
- Empiric Dosing
Initial / Loading Dose: vancomycin 2000 mg x 1
Maintenance Regimen: vancomycin 1250 mg q8h
Estimated AUC (mcg*h/mL): 567
Estimated Peak (mcg*h/mL): 30.8
Estimated Trough (mcg/ml): 17.5
Estimated Half Life (H): 7.9
- Monitoring
Peak level is ordered to be drawn (date/time): 1.2 @0100
Trough level is ordered to be drawn (date/time): 1.2 @0530
Pharmacokinetics Vancomycin I
- -
Patient Age: 38
Patient Sex: Male
Vancomycin Day #: 1
Indication: Pulmonary/Respiratory
Requesting Provider: Mayito Reese
Pertinent Antimicrobial Allergies:
nkda
Height / Weight:
Height 6 ft 1.5 in
Actual Weight 134.4 kg
IBW in k.1
Adjusted BW in k.4
Pertinent Past Medical History: aspiration pneumonia
- Vital Signs / Lab Results
Temp Pulse Resp BP Pulse Ox
98.9 F 102 14 116/78 96
04/02/24 14:52 04/02/24 11:52 04/02/24 11:52 04/02/24 09:00 04/02/24 12:00
Lab Results - Hematology
03/31/24 04/01/24 04/02/24
04:43 04:36 04:38
WBC 6.3 7.7 11.0 H
Lab Results - Chemistry
03/31/24 04/01/24 04/02/24
04:43 04:36 04:38
BUN 22 H 18 14
Creatinine 0.7 0.6 L 0.5 L
Estimated Creat Clear > 125 > 125 > 125
Albumin 3.0 L 3.1 L 2.9 L
Lab Results - Urine
04/01/24
11:02
Urine Nitrite Negative
Ur Leukocyte Esterase Negative
Urine WBC 0-2
Ur Squamous Epith Cells 3-5
Urine Bacteria Few A
Microbiology Results
04/01/24 11:02 Respiratory Culture - Preliminary
Tracheal Aspirate Staphylococcus aureus
Gram Stain - Preliminary
04/01/24 11:04 Blood Culture - Preliminary
Blood/Venous No Growth in 24 hours- Final report to follow
04/01/24 11:22 Influenza Types A & B (TAYE) - Final
Nasal Swab Negative for Influenza A & B, NAAT
Negative results must be combined with clinical observations
and patient history.
Nucleic Acid Amplification test (NAAT)performed on the
[employer] platform.
03/27/24 09:01 Blood Culture - Final
Blood/Venous No Growth - Final Report
03/27/24 09:01 Blood Culture - Final
Blood/Venous No Growth - Final Report
[2024-04-02] MEDS: VANCOCIN 540 MG IV (15:27)
--- NOTE | 2024-04-02 16:01 | CM ---
Patient remains on Vent and COVID+. Patient mother in also as patient. CM will continue to follow for discharge planning needs.
Plan; pending medical treatment plan TBD
[2024-04-02] MEDS: ANCEF 10 IV (17:00)
--- NOTE | 2024-04-02 17:05 | W.PN.ID1 ---
Date of Service
Date of Service: April 02, 2024
Today's Communication
Replace cefepime with IV Vancomycin.
Assessment / Plan
# Recurrence of fever 04/01
# VDRF: failed wean
# Suspect tracheitis
- Repeat bcx neg to date
-UA neg
- 04/01 CXR: no pneumonia
- Sputum: S. aureus
- Replace cefepime (d2) with IV Vancomycin pending susceptibility.
- Follow temps, wbc
# COVID infection
-03/28/24 COVID ag positive
- Unvaccinated
- s/p Remdesivir x 5d, completed 04/02
- Continue COVID isolation.
# s/p UGI bleed/hematemesis
# Epistaxis - packing removed 03/29
# Alcohol withdrawal
# s/p PEA cardiac arrest
# Conditions [employer]
Afib on Eliquis
HTN
HFrEF
anxiety
bipolar disorder
Substance abuse in the past
ETOH abuse
Robotic asst lap LACY umbilical/ventral hernia repair w mesh (04/18/2022)
Chief Complaint
-: Fever
Subjective / Review of Systems
Remains on vent.
Vital Signs / Physical Exam
Vital Signs
Vital Signs
Temp Pulse Resp BP Pulse Ox
98.9 F 103 14 116/78 97
04/02/24 14:52 04/02/24 15:27 04/02/24 15:27 04/02/24 09:00 04/02/24 16:00
Selected Entries
04/02/24
11:00
Temp 101 F H
Physical Exam
Constitutional: Acutely Ill
Eyes: Sclera Anicteric
Cardiovascular: S1/S2 and Other (tachycardic)
Pulmonary: Rhonchi
Gastrointestinal: Soft, Non Tender, Non Distended and Other (FMS liquid dark brown stool)
Genito-Urinary: Muniz and Clear Urine
Extremities: Negative Edema
Skin: Negative Rash
Neurological: Other (sedated)
Lines: PICC (RUE no induration)
Objective Data
Lab Data
Lab Results
04/02/24 04:38
04/02/24 04:38
PT 15.9 Sec (11.4-14.6) H 03/25/24 04:16
INR 1.24 03/25/24 04:16
APTT 26.3 Sec (23.4-35.0) 03/24/24 03:19
Estimated Creat Clear > 125 ml/min 04/02/24 04:38
Lactic Acid 1.1 mmol/L (0.7-2.0) 03/24/24 09:25
Total Bilirubin 0.9 mg/dl (0.2-1.3) 04/02/24 04:38
AST 54 U/L (17-59) 04/02/24 04:38
ALT 28 U/L (0-50) 04/02/24 04:38
Alkaline Phosphatase 104 U/L (38-126) 04/02/24 04:38
Most recent labs reviewed.
Micro Results:
04/01/24 11:02 Respiratory Culture - Preliminary
Tracheal Aspirate Staphylococcus aureus
Gram Stain - Preliminary
04/01/24 11:04 Blood Culture - Preliminary
Blood/Venous No Growth in 24 hours- Final report to follow
04/01/24 11:22 Influenza Types A & B (TAYE) - Final
Nasal Swab Negative for Influenza A & B, NAAT
Negative results must be combined with clinical observations
and patient history.
Nucleic Acid Amplification test (NAAT)performed on the
[employer] platform.
03/27/24 09:01 Blood Culture - Final
Blood/Venous No Growth - Final Report
03/27/24 09:01 Blood Culture - Final
Blood/Venous No Growth - Final Report
03/27/24 17:30 Respiratory Culture - Final
Sputum Usual Respiratory Michelle
Gram Stain - Final
03/28/24 15:21 Influenza Types A & B (TAYE) - Final
Nasal Swab Negative for Influenza A & B, NAAT
Negative results must be combined with clinical observations
and patient history.
Nucleic Acid Amplification test (NAAT)performed on the
[employer] platform.
03/25/24 13:46 Respiratory Culture - Final
Endotracheal Usual Respiratory Michelle
Gram Stain - Final
03/26/24 03:45 Legionella Urinary Antigen - Final
Urine Negative for Legionella pneumophila Serogroup 1 antigen.
A negative result does not rule out the possiblity of
Legionella infection due to other serogroups or species of
Legionella. Clinical correlation is recommended.
Streptococcus pneumoniae Antigen (M - Final
Negative for Streptococcus pneumoniae antigen.
A negative result does not exclude infection with
Streptococcus pneumoniae. Clinical correlation is
recommended.
03/24/24 17:54 Legionella Urinary Antigen - Final
Urine Negative for Legionella pneumophila Serogroup 1 antigen.
A negative result does not rule out the possiblity of
Legionella infection due to other serogroups or species of
Legionella. Clinical correlation is recommended.
Streptococcus pneumoniae Antigen (M - Final
Negative for Streptococcus pneumoniae antigen.
A negative result does not exclude infection with
Streptococcus pneumoniae. Clinical correlation is
recommended.
04/02/24 peripheral US: no DVT BLE
04/01/24 CXR: No radiographically demonstrable pneumonia.
03/31/24 CXR: Resolved CHF versus acute pulmonary edema in the interval since prior study.
03/29/24 Periph Vasc US: Occlusive thrombus formation in the left basilic vein
03/28/24 CXR: Mild to moderate CHF, slightly progressed. Small right and [id number] left pleural effusions with associated atelectasis and/or pneumonia, progressed.
03/27/24 CXR: Moderate cardiomegaly. Mild pulmonary edema. Suspected small bilateral pleural effusions. Left lower lobe airspace disease may also be present.
03/27/24 AXR: Nonspecific bowel gas pattern without signs of obstruction.
03/24/24 CT a/p: Moderate bibasilar consolidation. This may represent atelectasis or pneumonia. Bilateral lower lobe, lingular and right upper lobe atelectasis versus scarring. Small pericardial effusion. Findings suggesting mild volume overload or
third spacing.
[2024-04-02 17:28] LABS: Glucose - Point of Care 129 mg/dl (70-99)
--- NOTE | 2024-04-02 17:45 | PTCARENOTE ---
Pt reassessed. Attempted to wean sedation per order. Propofol gtt continues @ 30 mcg/kg/min. Fentanyl gtt @ 200 mcg/hr. CPOT 0. Fentanyl gtt decreased to 150 mcg/hr. Half hour later, pt thrashing in bed. HR to 120s. Dyssynchronous with vent and
biting tube. Unable to get tidal volumes on ventilator. Unable to follow commands. PRN Fentanyl 50mcg IV administered and Fentanyl gtt increased to 175 mcg/hr. Propofol gtt continues @ 30 mcg/kg/min.
--- NOTE | 2024-04-02 20:00 | PTCARENOTE ---
Received patient at 1900. Pt. currently ventilated and sedated. No signs of pain/discomfort. Afebrile. Heart rhythm Afib (known). Blood pressure normotensive. Ventilator settings verified. Lungs sound coarse. Tube feeds running via OG tube. Muniz
catheter in place, draining without issue. Skin as documented. Vital signs stable at this time.
[2024-04-02] MEDS: VANCOCIN 275 MG IV (22:56)
[2024-04-02 23:06] LABS: Glucose - Point of Care 115 mg/dl (70-99)
[2024-04-03] VITALS (24 sets, daily range): BP systolic 101–161; BP diastolic 73–114; PULSE 2–84; BMI 38.8
--- NOTE | 2024-04-03 00:01 | PTCARENOTE ---
Pt. assessment unchanged. Ventilated and sedated. Currently appears comfortable. Vital signs stable at this time.
[2024-04-03] MEDS: LOPRESSOR 50 MG TUBE ×2 (00:58→06:07)
[2024-04-03] MEDS: DIPRIVAN 100 IV ×2 (01:43→04:48)
--- NOTE | 2024-04-03 04:00 | PTCARENOTE ---
Pt. assessment unchanged. AM labs drawn. Vital signs stable at this time.
[2024-04-03 04:09] LABS: % Basophils 1.1 % (0-2); % Eosinophils 4.9 % (0-6); % Immature Granulocytes 0.6 % (0-0.5); % Lymphocytes 11.3 % (20.5-51.1); % Monocytes 10.8 % (1.7-9.3); % Neutrophils 71.3 % (42.2-75.2); Absolute Basophils 0.1 10^3/uL (0-0.2); Absolute Eosinophils 0.4 10^3/uL (0-0.7); Absolute Immature Granulocytes 0.1 10^3/uL (0-0.05); Absolute Monocytes 0.9 10^3/uL (0.1-0.6); Hematocrit 27.1 % (39.0-52.0); Hemoglobin 8.3 g/dL (13.0-18.0); Mean Corp Hgb Conc. 30.6 g/dL (33.0-37.0); Mean Corpuscular Hgb 28.5 pg (27.0-31.0); Mean Corpuscular Volume 93.1 fL (80.0-94.0); Mean Platelet Volume 10.3 fL (7.4-10.4); Nucleated Red Blood Cells % 0 % (-); Platelet Count 372 10^3/uL (130-400); Red Blood Cell Count 2.91 10^6/uL (4.70-6.10); Red Cell Dist. Width 15.3 % (11.5-14.5); White Blood Cell Count 8.4 10^3/uL (4.8-10.8)
[2024-04-03] MEDS: SUBLIMAZE 100 IV ×2 (04:09→09:29)
[2024-04-03 04:34] LABS: ALT (SGPT) 25 U/L (0-50); AST (SGOT) 48 U/L (17-59); Albumin 3.1 g/dl (3.5-5.0); Alkaline Phosphatase 118 U/L (38-126); Blood Urea Nitrogen 14 mg/dl (9-20); Carbon Dioxide 37 mmol/L (22-30); Chloride 95 mmol/L (98-107); Estimated Creatinine Clearance > 125 ml/min; Glucose 122 mg/dl (70-99); Potassium 4.4 mmol/L (3.5-5.1); Sodium 138 mmol/L (135-145); Total Bilirubin 0.7 mg/dl (0.2-1.3); Total Protein 5.9 g/dl (6.3-8.2); eGFR > 60.00
[2024-04-03] MEDS: VANCOCIN 275 MG IV (06:07)
--- NOTE | 2024-04-03 06:59 | W.PN.HOSP.TC ---
Addendum entered and electronically signed by Elis Tracy MD 04/03/24 14:09:
I saw and evaluated the patient independently. I reviewed the resident�s note and agree with findings and plan as documented by Dr. Reese.
GENERAL: well developed, well nourished, male in no apparent distress--sedated
HEENT: NC/AT intubated--OG tube
HEART:irreg irreg
LUNGS : clear to auscultation bilaterally
ABDOM: soft, nontender, nondistended, + bowel sounds--rectal tube
EXT: no cyanosis, clubbing, or edema
NEUROLOGIC: intubated and sedated
Sepsis, likely secondary to COVID-19 Infection--resp culture reveals MSSA, apprec ID, cefepime started--flu negative--covid test on 03/28/24 positive, was negative on admission---finished Remdesivir + Decadron, stopped zosyn-plan for extubation
today-s/p antivirals and steroids stopped--apprec diamond grinder
Superficial Venous Thrombus - swelling in L arm near peripheral line, US confirmed L basilic vein thrombosis. Line removed. Will observe.
Aspiration Pneumonia, likely prior to admission and worsened since admission - CXR since admissions progressed, with most recent showing small R and small-moderate L pleural effusions w/ associated atelectasis and/or pneumonia--Blood cx negative--
sputum cx shows MSSA-- COVID/Flu on admission negative, followed by COVID positive on 03/28/24--apprec ID
Vtach Cardiac Arrest w/ CPR-- TTM not initiated due to UGI bleed. Weaned off pressure supports. Head CT showed atrophy and EEG showed diffuse cortical dysfunction without focal abnormality and no seizure activity--- Currently off sedation, cont
seroquel --apprec cards
VDRF--wean per diamond grinder--extubated 04/03/24
Alcohol Use Disorder w/ possible withdrawal seizure-- MSAS protocol. Getting thiamine and Folic acid, Ativan per protocol, however patient currently sedated. Will be mindful of possible withdrawal as he is weaned off sedation. Attempts to wean thus
far have resulted in myoclonic movements; more likely withdrawal seizures vs hypoxic brain injury as head CTs show no signs of cerebral edema. On Phenobarb for seizure control--apprec neuro
Persistent Afib - ECG showing afib w/rate control on lopressor 25mg q6 via tubes-- Cardiology following--last Eliquis dose 03/28--now on intermediate dose lovenox 40mg Q12
Upper GI Bleed w/ Epistaxis resulting in Acute blood loss anemia - patient's last dose Eliquis Friday03/28/24 morning; stopped himself due to bleeding--S/p 1u pRBCs-- Transfuse if hgb <7- s/p TXA & cauterization for epistaxis-- Abd ultrasound
showing Hepatic fatty infiltration- c/w IV protonix per GI--apprec GI/ENT
acute on chronic HFrEF - Lopressor per cardiology. Echo showing EF of 30-35% with global hypokinesis w/ small pericardial effusion. Continue w/ gentle diuresis.
Hyperglycemia - initiated low dose ISS for glucose management --likely due to tube feeds
Hyponatremia (resolved)
Hyperbilirubinemia (resolved) - elevated on admission-- Resolved now.
Transaminitis, likely alcoholic fatty liver, possible compounding shock liver (resolved) - Elevated AST/ALT on admission--history of alcohol use and obesity, possible chronic elevation from fatty liver vs. shock liver-- AST/ALT normalized.
Lactic Acidosis (resolved) - was elevated immediately post cardiac arrest, has come back down to normal. Blood gas showed metabolic acidosis without respiratory compensation; now normal pH.
Elevated troponins (resolved)- peaked, likely secondary to cardiac arrest.
Asthma - per mother at bedside patient has been using his inhaler more frequently for night time shortness of breath. 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 sleep apnea vs. worsening Asthma, however history uncertain. Will continue to observe.
patient currently intubated, will reassess when medically stable.
Bipolar Disorder - patient was on Lexapro but stopped on his own due to weight gain (obtained from mother at bedside)--cont seroquel
DVT Proph - SCDs
Code Status - Full Code
Total Critical Care Time 30 minutes. I was immediately available to the patient and staff. I personally examined, reviewed labs, diagnostic images/reports, interpretations, treatment plans, discussed patient care with other providers and family
or caregivers (if patient is unable to make decisions), entered orders as appropriate and documented the medical record.
Original Note:
Today's Communication/Plan
-
C/w IV abx. Weaning ventilation/sedation per diamond grinder team.
Assessment / Plan
Assessment / Plan
38 year old male
#Persistent Afib - Tachycardic into the 140s, Lopressor increased to 50mg Q6 w/ prn
#Sepsis, likely secondary to COVID-19 Infection - Febrile for several days without white count, initially thought propofol rxn vs. bacterial infection, however repeat covid test on 03/28/24 positive. Added Remdesivir + Decadron, stopped zosyn.
Hypothermic 96.6 F, tachycardic 102, source of infection COVID 19.
- s/p Remdesivir x5d
#Persistent Fevers
- New CXR 04/01 showed no radiographically demonstrable pneumonia. Repeat Blood Cx [id number]. Repeat Flu neg. Tracheal aspirate cx growing Staph a. --> started on IV Vancomycin pending sens.
#Possible Aspiration Pneumonia, seen on admission (now resolved)
- Blood cx 03/27 NGTD x 48hrs, sputum cx showing usual yvette. COVID/Flu on admission negative. Completed IV Abx through 03/28.
#Vtach Cardiac Arrest w/ CPR
- CXR did not show any osseous abnormalities. TTM not initiated due to UGI bleed. Weaned off pressure supports. Head CT showed atrophy and EEG showed diffuse cortical dysfunction without focal abnormality and no seizure activity.
- Currently sedated, on propofol ggt & fentanyl ggt, BID seroquel, however patient is still violent/aggressive when attempting to wean.
- Weaning of sedation and ventilation per diamond grinder team.
May consider psych consult for addition of medications to assist in stabilizing patient's aggression to facilitate extubation
#Alcohol Use Disorder w/ possible withdrawal seizure
- MSAS protocol. Getting thiamine and Folic acid, Ativan per protocol, however patient currently sedated. Will be mindful of possible withdrawal as he is weaned off sedation. Finished phenobarb taper.
#Superficial Venous Thrombus - swelling in L arm near peripheral line, US confirmed L basilic vein thrombosis. Line removed. Will observe.
#HFrEF - Echo showing EF of 30-35% with global hypokinesis w/ small pericardial effusion. C/w lasix 40mg QD.
#Upper GI Bleed w/ Epistaxis
#Acute blood loss anemia (resolved)
- S/p 1u pRBCs. s/p TXA & cauterization for epistaxis. No signs of active bleeding on exam. Nasal packing removed. Will continue to monitor H&H. Transfuse if hgb <7.
- c/w IV protonix per GI.
#Elevated Glucose - initiated LDISS for glucose management
#Hyponatremia (resolved) - Off fluids. Assess volume status and replete as needed.
#Hyperbilirubinemia (resolved) - possible component of hemolysis vs. Gilbert's Disease. Resolved now.
#Transaminitis, likely alcoholic fatty liver, possible compounding shock liver (resolved) - Elevated AST/ALT on admission 2:1. history of alcohol use and obesity, possible chronic elevation from fatty liver vs. shock liver. AST/ALT normalized.
#Lactic Acidemia (resolved) - was elevated immediately post cardiac arrest, has come back down. Blood gas showed metabolic acidosis without respiratory compensation; now normal pH.
#Elevated troponins (resolved)- peaked, likely secondary to cardiac arrest.
#Asthma - per mother at bedside patient has been using his inhaler more frequently for night time shortness of breath. 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 sleep apnea vs. worsening Asthma, however history uncertain. Will continue to observe.
patient currently intubated, will reassess when medically stable.
#Bipolar Disorder, uncertain - patient's mother states he was on Lexapro but stopped on his own due to weight gain. Presently patient is sedated, can consider psych consult in the future depending on patient status.
Diet - NPO
DVT Ppx - SCDs
GI Ppx - Protonix 40 BID IV
Code Status - Full Code
Anticipated Discharge: > 48 hours
Subjective/Interval History
-
No acute events overnight.
Objective Data
-
Labs:
Laboratory Results
04/03/24
03:50
WBC 8.4
Hgb 8.3 L
Hct 27.1 L
Plt Count 372
Sodium 138
Potassium 4.4
Chloride 95 L
Carbon Dioxide 37 H
BUN 14
Creatinine 0.5 L
Glucose 122 H
Calcium 8.0 L
Total Bilirubin 0.7
AST 48
ALT 25
Alkaline Phosphatase 118
Vital Signs:
Vital Signs
Temp Pulse Resp BP Pulse Ox
97.9 F 95 14 123/82 100
04/03/24 03:30 04/03/24 06:00 04/03/24 06:00 04/03/24 06:00 04/03/24 06:00
I&O
04/01/24 04/02/24 04/03/24
06:59 06:59 06:59
Intake Total 2352.4 / 2477.5 3347.4 / 3472.5 3502.4 / 3502.4
Output Total 3787 / 3817 2510 / 2610 1999
Balance -1434.6 / -1339.5 837.4 / 862.5 1502.4 / 1502.4
Review of Systems
-
Unable to obtain full review of systems at this time due to: Patient Intubation
Physical Exam
-
General: Well Developed, Well Nourished, Intubated, Appears Chronically Ill and Morbidly Obese
HEENT: Normocephalic, Atraumatic, Moist Mucous Membranes, Weinert Conjunctivae, Nose Appears Normal and Ears Appear Normal
Respiratory: Other (Mechanical breath sounds); Negative Wheezes or Rales
Cardiac: Regular Rhythm and S1/S2; Negative Tachycardic
Breast: N/A
GI: Soft, Nontender, Normal Bowel Sounds and Distended
Genito-urinary: Clear Urine and Muniz
Musculoskeletal: No Clubbing, No Cyanosis and No Edema
Skin: Warm, Dry and IV Access / Catheter Site
Neuro: Sedated
--- NOTE | 2024-04-03 07:09 | W.PN.INTV ---
Today's Communication / Plan
Recommendations
Sedation wean slowly over 60 minutes with gradual weaning of ventilator with me at the bedside
Extubated to nasal cannula
Patient following commands
Follow neurological status, encourage airway clearance
Nebulized therapy x 1. Unfortunate cannot continue nebulized therapy per respiratory while in isolation
Hopefully isolation can be discontinued at some point. Inhaler therapy in the interim
Will need to transition to oral meds as able. Speech and swallow evaluation when more awake
Transition to IV Lopressor for now
Assessment
-
Assessment: 38-year-old male non-smoker with a past medical history of persistent A-fib on Eliquis, bipolar affective disorder, asthma, and hypertension who presented with vomiting blood 1 day prior to arrival with dark stools as well as a
nosebleed. He has been having fatigue, shortness of breath and confusion with chest pain. He is normally on Eliquis but he has been holding it for few days due to his bleeding. He does follow-up with cardiology with last visit on 02/17/[address] Phillips[address] He has a history of nonischemic cardiomyopathy with prior EF of 20-25% with global hypokinesis from echo in December 2023. He was discussing getting an ablation for his A-fib. He has a history of cardioversion x 2 with failure to
restore into sinus rhythm. Also it has been difficult to choose an antiarrhythmic drug in the setting of his lithium drug use with risk of QT prolongation. In the ER he told the doctor he has been having a bloody nose which started on the day of
ER arrival, and has been vomiting bright red blood with dark tarry stools for 1 week. Last dose of Eliquis was on Friday (03/21/2024). In the ER he was afebrile to 97.1 �F, pulse rate 97, breathing at 20 breaths/minute, BP 129/83 and saturating 98%
on room air. Initial labs showed Hb 8.9, platelet count 115, sodium 123, chloride 87, BUN 33, serum osmolarity 302, and urinalysis negative for signs of UTI. Initial CXR showed suspected small right pleural effusion with possible pneumonia in the
right middle lobe. He was initially admitted to the IMU for a GI bleed with epistaxis. Overnight he was agitated and required Precedex drip so was transferred to the ICU, and developed a cardiac arrest while trying to get up out of bed. He was
labeled DNR however when the ICU CLINICAL RESEARCH SPECIALIST call the family this was reversed, and CPR/ACLS was initiated. He was given an amp of epinephrine and pulse was regained and then he became bradycardic and lost pulse again. CPR resumed and given 2 A of epi and
patient was intubated. ROSC regained. Due to his prearrest seizure-like activity, neurology was called and empiric Keppra was given. TTM was not started given his acute upper GI bleed and epistaxis. He has continued to be managed in the ICU and
paper winder services consulted for additional management/recommendations.
Chronic conditions TEACHERS ASSISTANT: Asthma, hypertension, bipolar 1 disorder, A-fib
Impression:
#Hemorrhagic shock - shock state now resolved
#In-hospital cardiac arrest with preceding seizure-like activity (withdrawal seizure vs myoclonic jerks)
#Acute blood loss anemia due to reported epistaxis and UGIB with hematemesis
#Acute respiratory failure with hypoxia now on mechanical ventilation (intubated 03/24/2024)
#RUL + bilateral lower lobe pneumonia (confirmed on CT Chest from 03/24/2024)
#Acute thrombocytopenia
#Alcoholism with use of alcohol use drinking vodka daily as well as wine
#Suspected alcohol withdrawal seizure
#History of anxiety
#Metabolic acidosis with increased anion gap + respiratory acidosis - acidosis now resolved
#Lactic acidosis � now resolved
#Hypochloremic, hyponatremia � now resolved
#Hyperglycemia � now resolved
#Transaminitis with hyperbilirubinemia
#Elevated troponin likely due to cardiac arrest
#Chronic HFrEF with RV dysfunction seen on TTE from 03/24/2024
Plan/recommendations:
At this time, patient remains critically ill
Secretions improved today
Fever in last 24 hours noted, 101.1
Remains on propofol/fentanyl
CT chest 03/28/2024 with bibasilar consolidation, possible pneumonia left greater than right
Chest x-ray 03/31 much improved with improved aeration bilaterally
CXR 04/01 without acute findings
ABG on ASV 7.41/57/157
Currently on volume-cycled ventilation
Moving forward
Continue with volume-cycled ventilation
AC 14/450/5/40%
PPK 25, Pplat 15
I was at the bedside for 60+ minutes, with respiratory care and critical care nursing during wean
We sequentially stopped propofol, decrease fentanyl and then stopped.
Patient was off sedation for 45 minutes plus, slowly transition from AC to ASV to CPAP to CPAP 5/pressure support of 10
Throughout this, minute ventilation actually improved from 6.5 up to 9-11, confirming adequate ventilation
Patient eventually was following commands, moving all extremities, lifting head, squeezing hands, wiggling toes
Throughout this, heart rate was maintained 110s to 120s, systolic pressure stable, saturation 100%
Patient was extubated. Significant thick inspissated secretions noted through the ET tube patient proceeded to expectorate, mucus in the back of his mouth
He is following commands
Will give 1 dose of nebulized treatment at this time
Unfortunately due to his isolation COVID, unable to continue nebs at this time. Will try with inhaler therapy
May need to give intermittent steroids given history of asthma but hopefully we can avoid this
Head of bed elevated
BiPAP as needed and nightly
Follow neurological exam
Check ABG later p.m.
Patient presented with bloody emesis, dark stool
Tolerating tube feeds
Patient had bowel movement 03/29
Abdominal x-ray unremarkable
Abdomen is benign, soft
Tolerating tube feeds
OG tube now out, will need to reassess p.o. intake once mental status optimized
ID following
Patient remains on Augmentin, recent episode of epistaxis noted, nasal packing in place
Was on Zosyn, now discontinued
Remdesivir continues
Fevers now returned
Decadron discontinued 03/30
No significant hypoxia at this time. Will follow
Chest x-ray without findings
Cultures pending
Question fever, drug fever, quetiapine?
Patient with significant intermittent agitation
Head CT without acute findings
Patient with episode of PEA, seizure activity
Neurology was following, EEG without evidence of seizures
Remains on phenobarbital, per neuro recommendations
Continue with folic acid, thiamine
History of alcohol abuse noted, last drink 03/22
Remains on Seroquel, 100 mg twice a day
Will need to transition to oral when able
Follow QTc
Lasix therapy continues, beta-kevin noted
Eliquis remains on hold, last dose 03/21. Significant epistaxis noted
Required transfusion 03/23
ENT also following
Negative fluid balance continues
Continue beta-kevin therapy, may be contributing to tachycardia
Echo 03/24/2024
EF 30%, global hypokinesis, enlarged RV size with reduced function, PA pressure 30
Diuresis continues
Remains on Lopressor, increase dosing per cardiology
Atrial fibrillation continues
Rate seems better controlled throughout the day today
We will need to give IV dose for now until able to take oral
Dopplers negative for DVT
Follow blood sugars
Patient with bloody emesis and tarry stool prior to admission
Hemoglobin stable at 7.8, transfuse 1 unit 03/23
Abdominal ultrasound with hepatic infiltration, no evidence of cirrhosis
GI following, last seen 03/25, signed off
Recommended to continue pantoprazole twice daily
EGD was not pursued
Hold bowel regimen, now with loose stool
GI prophylaxis: On pantoprazole
DVT prophylaxis: Lovenox 40 mg every 12 hours
Follow electrolytes
Agitation continues to be an issue
Patient drinks half a bottle of vodka according to mother
Last drink 03/22/2024
Sedation vacation as able
DVT ppx: SCDs and continue LMWH; previously he stopped his Eliquis TEACHERS ASSISTANT due to nosebleeds, plus he was scheduled for an ablation given Hx of A-fib
GI prophylaxis: Remains on Protonix twice daily
Updated sister at bedside earlier this morning
Critical care statement: A total of 80 minutes of critical care time was provided for this patient today. This includes management of unstable vital signs, evaluation of the patient at bedside, reviewing the patient's pertinent medical records
including radiographs, microbiology, laboratory evaluations, and discussion with primary team, consultants, pharmacy, nutrition, physical therapy, case management, charge nurse, critical care nursing, and respiratory therapy.
Data:
CXR 03/24/2024:
New mild right upper lobe airspace disease concerning for developing pneumonia.
Possible developing pneumonia in the right costophrenic angle versus atelectasis. Progressed. Mild.
Tiny right pleural effusion. Progressed.
Cardiomegaly. Stable.
CXR 03/27/2024:
1. Moderate cardiomegaly. Mild pulmonary edema.
2. Suspected small bilateral pleural effusions. Left lower lobe airspace disease may also be present.
CXR 03/28/2024: Mild to moderate CHF, slightly progressed. Small right and [id number] left pleural effusions with associated atelectasis and/or pneumonia, progressed.
CT chest/abdomen/pelvis without contrast 03/24/2024:
Moderate bibasilar consolidation. This may represent atelectasis or pneumonia.
Bilateral lower lobe, lingular and right upper lobe atelectasis versus scarring.
Small pericardial effusion.
Findings suggesting mild volume overload or third spacing.
Minimal diverticulosis.
Subjective Dataa
Subjective Data
Date of Service:
Date of Service: April 03, 2024
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
Subjective:
Patient remains critically ill. Ventilator dependent. Low-grade fevers noted. Remains on volume-cycled ventilation, airway pressures improved today, peak 25, plateau 15
Objective Data
Data Reviewed
Vital Signs / I&O / Oxygen:
Vital Signs
Temp Pulse Resp BP Pulse Ox
97.9 F 95 14 123/82 100
04/03/24 03:30 04/03/24 06:00 04/03/24 06:00 04/03/24 06:00 04/03/24 06:00
Intake and Output
04/02/24 04/03/24 04/04/24
06:59 06:59 06:59
Intake Total 3347.4 / 3472.5 3502.4 / 3502.4
Output Total 2510 / 2610 1999 / 1999
Balance 837.4 / 862.5 1502.4 / 1502.4
SaO2 [CPAP/PSV] 100
SaO2 [A/C] 99
SaO2 100
Physical Exam
General: Comfortable
HEENT: Normocephalic, Anicteric, Other (Thick neck) and Other (ETT in place)
Cardiovascular: S1-S2, Regular Rhythm (Tachycardic), Murmur (n), Rub (n), Peripheral Edema (Trace lower extremity edema bilaterally) and Other (Right upper extremity PICC line)
Respiratory: Wheeze (negative), Crackles (few), Rhonchi (negative), Non-Labored Respirations, Stridor (n) and ET Tube (Mechanical breath sounds heard bilaterally)
GI: Soft, Non Distended, Non Tender and Normal Bowel Sounds
Neurology: Lethargic (Sedated. Moving all extremities, not following commands)
Skin: Warm, Dry, Cyanosis (negative), Jaundice (negative) and Rash (negative)
Labs/Micro/Reports
Lab Data
04/03/24 03:50
04/03/24 03:50
Microbiology
04/01/24 11:02 Tracheal Aspirate Respiratory Culture - Preliminary
Staphylococcus aureus
04/01/24 11:02 Tracheal Aspirate Gram Stain - Preliminary
04/01/24 11:04 Blood/Venous Blood Culture - Preliminary
No Growth in 24 hours- Final report to follow
04/01/24 11:22 Nasal Swab Influenza Types A & B (TAYE) - Final
Negative for Influenza A & B, NAAT
Negative results must be combined with clinical observations
and patient history.
Nucleic Acid Amplification test (NAAT)performed on the
[employer] platform.
03/27/24 09:01 Blood/Venous Blood Culture - Final
No Growth - Final Report
03/27/24 09:01 Blood/Venous Blood Culture - Final
No Growth - Final Report
--- NOTE | 2024-04-03 08:00 | PTCARENOTE ---
Assumed care of patient. Pt rec'd w/ bilateral wrist restraints and sedated. Does not follow commands. Pupils 2/sluggish. Does not respond to verbal stimuli at present. S1 S2 irregular ... afib on monitor. +PP. +2 generalized edema. Arms
and legs elevated on pillows. Intubated w/ #8 ETT...25cm left lip. Current vent settings: 14/450/+5/40%...sats 98%. Lungs diminished and coarse throughout. Suctioned orally and via ETT for moderate thick norris secretions. OG at 62cm....Jevity
1.5 @ 55ml/hr & 25ml/hr H20 flushes...prosource given. FMS draining liquid brown stool...flushed w/o issue. Murguia draining yellow/aj urine...murguia care done. Skin intact w/ abdominal ecchymosis and scattered forearm ecchymosis. Right DL PICC
w/ fentanyl and diprivan gtts infusing...see interventions. VS documented. Safe environment confirmed. Will continue to monitor closely.
[2024-04-03] MEDS: PROTONIX IV 40 MG IV ×2 (08:10→19:27)
[2024-04-03] MEDS: LOVENOX 40 MG SC ×2 (08:10→19:28)
[2024-04-03] MEDS: NSS (PRESERVATIVE FREE) 10 ML IV ×2 (08:10→19:28)
[2024-04-03] MEDS: LASIX 40 MG IV (08:13)
[2024-04-03] MEDS: FOLVITE 1 MG PO (08:14)
[2024-04-03] MEDS: SEROQUEL 100 MG TUBE (08:14)
[2024-04-03] MEDS: VITAMIN B1 100 MG PO (08:14)
[2024-04-03] MEDS: FLOVENT 220 MCG INHALER 4 PUFF INH (08:47)
[2024-04-03] MEDS: DUONEB 3 ML INH ×2 (08:47→11:45)
--- NOTE | 2024-04-03 09:45 | PHA.VAN.FU ---
Vancomycin Assessment / Plan
- Assessment
Renal Function: Stable
WBC's are: Trending Down
In the past 24 hrs, patient has been: Febrile (Tmax = 101)
- Dosing Plan
Continue: Vanc 1250mg IV q8H
- Monitoring Plan
Peak Level: 2/2 at 0100
Trough Level: 2/2 at 0530
- Follow Up
Pharmacy will continue to follow.
Vancomycin Follow UP
- -
Patient Age: 38
Patient Sex: Male
Vancomycin Day #: 2
Indication: Pulmonary/Respiratory
Requesting Provider: Mayito Reese
Pertinent Antimicrobial Allergies:
nkda
Height / Weight:
Height 6 ft 1.5 in
Actual Weight 135.2 kg
IBW in k.1
Adjusted BW in k.4
Pertinent Past Medical History: aspiration pneumonia
- Vital Signs / Lab Results
Temp Pulse Resp BP Pulse Ox
98.1 F 93 14 115/82 98
04/03/24 07:33 04/03/24 08:48 04/03/24 08:48 04/03/24 08:13 04/03/24 08:48
Lab Results - Hematology
04/01/24 04/02/24 04/03/24
04:36 04:38 03:50
WBC 7.7 11.0 H 8.4
Lab Results - Chemistry
04/01/24 04/02/24 04/03/24
04:36 04:38 03:50
BUN 18 14 14
Creatinine 0.6 L 0.5 L 0.5 L
Estimated Creat Clear > 125 > 125 > 125
Albumin 3.1 L 2.9 L 3.1 L
Microbiology Results
04/01/24 11:02 Respiratory Culture - Final
Tracheal Aspirate S aureus-Methicillin Sensitive
Gram Stain - Final
04/01/24 11:04 Blood Culture - Preliminary
Blood/Venous No Growth in 24 hours- Final report to follow
04/01/24 11:22 Influenza Types A & B (TAYE) - Final
Nasal Swab Negative for Influenza A & B, NAAT
Negative results must be combined with clinical observations
and patient history.
Nucleic Acid Amplification test (NAAT)performed on the
[employer] platform.
03/27/24 09:01 Blood Culture - Final
Blood/Venous No Growth - Final Report
03/27/24 09:01 Blood Culture - Final
Blood/Venous No Growth - Final Report
--- NOTE | 2024-04-03 10:48 | W.PN.ID1 ---
Date of Service
Date of Service: April 03, 2024
Today's Communication
start cefazolin, stopped vanc
Assessment / Plan
# Recurrence of fever 04/01 - resolved
# VDRF: failed wean
# Suspect tracheitis
- Repeat bcx neg to date
- UA neg
- 04/01 CXR: no pneumonia
- Sputum: MSSA
- start cefazolin 2 gm iv q8 hours
- Follow temps, wbc
# COVID infection
-03/28/24 COVID ag positive
- Unvaccinated
- s/p Remdesivir x 5d, completed 04/02
- Continue COVID isolation x10 days
# s/p UGI bleed/hematemesis
# Epistaxis - packing removed 03/29
# Alcohol withdrawal
# s/p PEA cardiac arrest
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
Afib on Eliquis
HTN
HFrEF
anxiety
bipolar disorder
Substance abuse in the past
ETOH abuse
Robotic asst lap LACY umbilical/ventral hernia repair w mesh (04/18/2022)
Chief Complaint
-: Fever
Subjective / Review of Systems
afebrile
bp stable
remains on fio2 40% on vent - for extuabtion this AM
no events overnight
isolate - MSSA
Vital Signs / Physical Exam
Vital Signs
Vital Signs
Temp Pulse Resp BP Pulse Ox
98.1 F 93 14 115/82 98
04/03/24 07:33 04/03/24 08:48 04/03/24 08:48 04/03/24 08:13 04/03/24 08:48
Physical Exam
Constitutional: Acutely Ill
Cardiovascular: Regular Rate
Pulmonary: Symmetric and Non Labored
Gastrointestinal: Non Distended
Skin: Dry; Negative Rash or Jaundice
Neurological: Negative Awake
Objective Data
Lab Data
Lab Results
04/03/24 03:50
04/03/24 03:50
PT 15.9 Sec (11.4-14.6) H 03/25/24 04:16
INR 1.24 03/25/24 04:16
APTT 26.3 Sec (23.4-35.0) 03/24/24 03:19
Estimated Creat Clear > 125 ml/min 04/03/24 03:50
Lactic Acid 1.1 mmol/L (0.7-2.0) 03/24/24 09:25
Total Bilirubin 0.7 mg/dl (0.2-1.3) 04/03/24 03:50
AST 48 U/L (17-59) 04/03/24 03:50
ALT 25 U/L (0-50) 04/03/24 03:50
Alkaline Phosphatase 118 U/L (38-126) 04/03/24 03:50
Most recent labs reviewed.
Micro Results:
04/01/24 11:02 Respiratory Culture - Final
Tracheal Aspirate S aureus-Methicillin Sensitive
Gram Stain - Final
04/01/24 11:04 Blood Culture - Preliminary
Blood/Venous No Growth in 24 hours- Final report to follow
04/01/24 11:22 Influenza Types A & B (TAYE) - Final
Nasal Swab Negative for Influenza A & B, NAAT
Negative results must be combined with clinical observations
and patient history.
Nucleic Acid Amplification test (NAAT)performed on the
[employer] platform.
03/27/24 09:01 Blood Culture - Final
Blood/Venous No Growth - Final Report
03/27/24 09:01 Blood Culture - Final
Blood/Venous No Growth - Final Report
03/27/24 17:30 Respiratory Culture - Final
Sputum Usual Respiratory Michelle
Gram Stain - Final
03/28/24 15:21 Influenza Types A & B (TAYE) - Final
Nasal Swab Negative for Influenza A & B, NAAT
Negative results must be combined with clinical observations
and patient history.
Nucleic Acid Amplification test (NAAT)performed on the
[employer] platform.
03/25/24 13:46 Respiratory Culture - Final
Endotracheal Usual Respiratory Michelle
Gram Stain - Final
03/26/24 03:45 Legionella Urinary Antigen - Final
Urine Negative for Legionella pneumophila Serogroup 1 antigen.
A negative result does not rule out the possiblity of
Legionella infection due to other serogroups or species of
Legionella. Clinical correlation is recommended.
Streptococcus pneumoniae Antigen (M - Final
Negative for Streptococcus pneumoniae antigen.
A negative result does not exclude infection with
Streptococcus pneumoniae. Clinical correlation is
recommended.
03/24/24 17:54 Legionella Urinary Antigen - Final
Urine Negative for Legionella pneumophila Serogroup 1 antigen.
A negative result does not rule out the possiblity of
Legionella infection due to other serogroups or species of
Legionella. Clinical correlation is recommended.
Streptococcus pneumoniae Antigen (M - Final
Negative for Streptococcus pneumoniae antigen.
A negative result does not exclude infection with
Streptococcus pneumoniae. Clinical correlation is
recommended.
04/02/24 peripheral US: no DVT BLE
04/01/24 CXR: No radiographically demonstrable pneumonia.
03/31/24 CXR: Resolved CHF versus acute pulmonary edema in the interval since prior study.
03/29/24 Periph Vasc US: Occlusive thrombus formation in the left basilic vein
03/28/24 CXR: Mild to moderate CHF, slightly progressed. Small right and [id number] left pleural effusions with associated atelectasis and/or pneumonia, progressed.
03/27/24 CXR: Moderate cardiomegaly. Mild pulmonary edema. Suspected small bilateral pleural effusions. Left lower lobe airspace disease may also be present.
03/27/24 AXR: Nonspecific bowel gas pattern without signs of obstruction.
03/24/24 CT a/p: Moderate bibasilar consolidation. This may represent atelectasis or pneumonia. Bilateral lower lobe, lingular and right upper lobe atelectasis versus scarring. Small pericardial effusion. Findings suggesting mild volume overload or
third spacing.
--- NOTE | 2024-04-03 11:40 | RESPNOTE ---
patient extubated at 1140 without incident. MD and RN at bedside for extubation. 99% on 4L.
--- NOTE | 2024-04-03 11:45 | PTCARENOTE ---
SBT initiated @ 1050 w/ RN, RPT, and at bedside. Propofol gtt shut off @ 1050. Fentanyl gtt decreased to 100mcg @ 1102. Fentanyl gtt d/c'd @ 1114. Pt extubated to 40% VM per @ 1140. Pt responds to verbal stimuli. Able to
lift head off pillow, squeeze hands, and wiggle toes. Weak cough...orally suctioned for thick norris secretions. Encouraged pt to cough and deep breath. No major changes in physical assessment. Will continue to monitor closely.
[2024-04-03] MEDS: LOPRESSOR 10 MG IV ×3 (11:49→23:48)
[2024-04-03] MEDS: LOPRESSOR TUBE (11:52)
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
[2024-04-03] MEDS: DILAUDID 0.5 MG IV ×2 (12:40→17:10)
[2024-04-03] MEDS: ANCEF 10 IV ×2 (12:43→20:39)
[2024-04-03 12:50] LABS: Glucose - Point of Care 130 mg/dl (70-99)
[2024-04-03] MEDS: ATIVAN 1 MG IV (12:57)
[2024-04-03] MEDS: CARDIZEM 10 MG IV (13:27)
[2024-04-03] MEDS: OFIRMEV 100 IV (14:33)
[2024-04-03] MEDS: PRECEDEX 100 IV ×4 (14:33→23:48)
--- NOTE | 2024-04-03 16:00 | PTCARENOTE ---
Pt currently on 4L N/C...sats 92% and above. Occasional garbled speech. Uncooperative w/ care. Precedex gtt initiated per protocol...see intervention. Ofirmev IV given for temp...see MAR. Pt reassessed...no major changes. Will continue to
monitor closely.
[2024-04-03 17:28] LABS: Glucose - Point of Care 109 mg/dl (70-99)
--- NOTE | 2024-04-03 19:30 | PTCARENOTE ---
Received patient at 1900. Pt. currently in bed. Drowsy but arousable. Follows simple commands. Mumbling words. No signs of pain/discomfort. Heart rhythm afib (known). Blood pressure normotensive. Currently on 4L nasal cannula. NPO. Incontinent of
bowel and bladder. FMS in place. Muniz catheter in place. Skin as documented. Vital signs stable at this time.
[2024-04-03] MEDS: FLOVENT 220 MCG INHALER INH (21:19)
[2024-04-03 23:58] LABS: Glucose - Point of Care 93 mg/dl (70-99)
[2024-04-04] VITALS (30 sets, daily range): BP systolic 125–181; BP diastolic 84–116; PULSE 2–77; O2SAT 96; BMI 38.9
--- NOTE | 2024-04-04 | PTCARENOTE ---
Pt. placed on bipap HS. Remains drowsy but arousable. Vital signs stable at this time.
[2024-04-04] MEDS: ATIVAN 1 MG IV ×2 (02:37→13:13)
[2024-04-04] MEDS: DILAUDID 0.5 MG IV ×3 (02:37→23:17)
[2024-04-04] MEDS: PRECEDEX 100 IV ×6 (02:38→23:15)
[2024-04-04] MEDS: ANCEF 10 IV ×3 (03:53→20:33)
--- NOTE | 2024-04-04 04:00 | PTCARENOTE ---
Pt. assessment unchanged. AM labs drawn. Vital signs stable at this time.
[2024-04-04 04:27] LABS: % Basophils 1.2 % (0-2); % Eosinophils 4.1 % (0-6); % Immature Granulocytes 0.4 % (0-0.5); % Lymphocytes 11.4 % (20.5-51.1); % Monocytes 11.2 % (1.7-9.3); % Neutrophils 71.7 % (42.2-75.2); Absolute Basophils 0.1 10^3/uL (0-0.2); Absolute Eosinophils 0.4 10^3/uL (0-0.7); Absolute Neutrophils 6.5 10^3/uL (1.4-6.5); Hematocrit 27.2 % (39.0-52.0); Hemoglobin 8.5 g/dL (13.0-18.0); Mean Corp Hgb Conc. 31.3 g/dL (33.0-37.0); Mean Corpuscular Hgb 28.3 pg (27.0-31.0); Mean Corpuscular Volume 90.7 fL (80.0-94.0); Mean Platelet Volume 10.4 fL (7.4-10.4); Nucleated Red Blood Cells % 0 % (-); Platelet Count 401 10^3/uL (130-400); White Blood Cell Count 9.1 10^3/uL (4.8-10.8)
[2024-04-04 04:35] LABS: B.E. 9.4 mmol/L; HCO3 35.3 mmol/L (21-28); PCO2 52 mmHg (35-48); PO2 148 mmHg (83-108); pH 7.44 (7.35-7.45)
[2024-04-04 04:55] LABS: ALT (SGPT) 25 U/L (0-50); AST (SGOT) 53 U/L (17-59); Albumin 3.2 g/dl (3.5-5.0); Alkaline Phosphatase 138 U/L (38-126); Blood Urea Nitrogen 15 mg/dl (9-20); Calcium 8.6 mg/dl (8.4-10.2); Carbon Dioxide 37 mmol/L (22-30); Chloride 97 mmol/L (98-107); Estimated Creatinine Clearance > 125 ml/min; Glucose 106 mg/dl (70-99); Potassium 4.4 mmol/L (3.5-5.1); Sodium 137 mmol/L (135-145); Total Bilirubin 1.1 mg/dl (0.2-1.3); Total Protein 5.7 g/dl (6.3-8.2); eGFR > 60.00
[2024-04-04 05:16] LABS: O2 Saturation % 99.4 % (94-98); O2 Therapy BI PAP
[2024-04-04] MEDS: LOPRESSOR 10 MG IV ×4 (05:30→23:16)
--- NOTE | 2024-04-04 06:29 | W.PN.HOSP.TC ---
Addendum entered and electronically signed by Elis Tracy MD 04/04/24 13:24:
I saw and evaluated the patient independently. I reviewed the resident�s note and agree with findings and plan as documented by Dr. Reese.
GENERAL: well developed, well nourished, male in no apparent distress--sedated
HEENT: NC/AT
HEART:irreg irreg
LUNGS : clear to auscultation bilaterally
ABDOM: soft, nontender, nondistended, + bowel sounds--rectal tube
EXT: no cyanosis, clubbing, or edema
NEUROLOGIC: intubated and sedated
: murguia
Sepsis, likely secondary to COVID-19 Infection--resp culture reveals MSSA (NO pneumonia), apprec ID, zosyn to cefepime changed to cefazolin--flu negative--covid test on 03/28/24 positive, was negative on admission---finished Remdesivir +
Decadron---s/p extubation---s/p antivirals and steroids stopped--apprec service station attendant on small dose of precedex
Superficial Venous Thrombus - swelling in L arm near peripheral line, US confirmed L basilic vein thrombosis. Line removed. Will observe.
Aspiration Pneumonia, likely prior to admission and worsened since admission - CXR since admissions progressed, with most recent showing small R and small-moderate L pleural effusions w/ associated atelectasis and/or pneumonia--Blood cx negative--
sputum cx shows MSSA (no pna)-- COVID/Flu on admission negative, followed by COVID positive on 03/28/24--apprec ID
Vtach Cardiac Arrest w/ CPR-- TTM not initiated due to UGI bleed. Weaned off pressure supports. Head CT showed atrophy and EEG showed diffuse cortical dysfunction without focal abnormality and no seizure activity---on precedex-- not awake enough for
seroquel--may need dobhoff --apprec cards
VDRF--wean per service station attendant--extubated 04/03/24
Alcohol Use Disorder w/ possible withdrawal seizure-- MSAS protocol. Getting thiamine and Folic acid, Ativan per protocol, however patient currently sedated. Will be mindful of possible withdrawal as he is weaned off sedation. Attempts to wean thus
far have resulted in myoclonic movements; more likely withdrawal seizures vs hypoxic brain injury as head CTs show no signs of cerebral edema. On Phenobarb for seizure control--neuro signed off
Persistent Afib - ECG showing afib w/rate control on lopressor -- Cardiology following--last Eliquis dose 03/28--now on intermediate dose lovenox 40mg Q12
Upper GI Bleed w/ Epistaxis resulting in Acute blood loss anemia - patient's last dose Eliquis Friday03/28/24 morning; stopped himself due to bleeding--S/p 1u pRBCs-- Transfuse if hgb <7- s/p TXA & cauterization for epistaxis-- Abd ultrasound
showing Hepatic fatty infiltration- c/w IV protonix per GI--apprec GI/ENT
acute on chronic HFrEF - Lopressor per cardiology. Echo showing EF of 30-35% with global hypokinesis w/ small pericardial effusion. Continue w/ gentle diuresis.
Hyperglycemia --likely due to tube feeds, now off
Hyponatremia (resolved)
Hyperbilirubinemia (resolved) - elevated on admission-- Resolved now.
Transaminitis, likely alcoholic fatty liver, possible compounding shock liver (resolved) - Elevated AST/ALT on admission--history of alcohol use and obesity, possible chronic elevation from fatty liver vs. shock liver-- AST/ALT normalized.
Lactic Acidosis (resolved) - was elevated immediately post cardiac arrest, has come back down to normal. Blood gas showed metabolic acidosis without respiratory compensation; now normal pH.
Elevated troponins (resolved)- peaked, likely secondary to cardiac arrest.
Asthma - per mother at bedside patient has been using his inhaler more frequently for night time shortness of breath. 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 sleep apnea vs. worsening Asthma, however history uncertain. Will continue to observe.
patient currently intubated, will reassess when medically stable.
Bipolar Disorder - patient was on Lexapro but stopped on his own due to weight gain (obtained from mother at bedside)--cont seroquel when able
DVT Proph - SCDs
Code Status - Full Code
Original Note:
Today's Communication/Plan
-
Wean sedation/BiPAP per service station attendant. C/w IV Abx; ID/Cardiology following
Assessment / Plan
Assessment / Plan
38 year old male
#Persistent Afib - Rate controlled on Lopressor 10mg IV q6. Will transition back to oral meds pending Speech Evaluation this am.
#Sepsis, likely secondary to COVID-19 Infection (resolved)
- Febrile for several days without white count, initially thought propofol rxn vs. bacterial infection, however repeat covid test on 03/28/24 positive. Hypothermic 96.6 F, tachycardic 102, source of infection COVID 19.
- stopped zosyn. s/p x1 dose decadron & 5d Remdesivir
#Persistent Fevers
- Tracheal aspirate cx growing MSSA- c/w Cefazolin (ID Following)
#Vtach Cardiac Arrest w/ CPR
- CXR did not show any osseous abnormalities. TTM not initiated due to UGI bleed. Weaned off pressure supports. Head CT showed atrophy and EEG showed diffuse cortical dysfunction without focal abnormality and no seizure activity.
- Extubated, on BiPAP,; to wean sedation per service station attendant team
PT/OT ordered
#Alcohol Use Disorder w/ possible withdrawal seizure
- MSAS protocol. Thiamine and Folic acid, Ativan per protocol. Finished phenobarb taper. Should be out of DT window as patient has been in hospital >5d
#Superficial Venous Thrombus - swelling in L arm near peripheral line, US confirmed L basilic vein thrombosis. Line removed. Will observe.
#HFrEF - Echo showing EF of 30-35% with global hypokinesis w/ small pericardial effusion. C/w lasix 40mg QD. (Cardiology Following)
#Upper GI Bleed w/ Epistaxis
#Acute blood loss anemia (resolved)
- S/p 1u pRBCs. s/p TXA & cauterization for epistaxis. No signs of active bleeding on exam. Nasal packing removed. Will continue to monitor H&H. Transfuse if hgb <7.
- c/w IV protonix per GI.
#Elevated Glucose - initiated LDISS for glucose management
#Hyponatremia (resolved) - Off fluids. Assess volume status and replete as needed.
#Hyperbilirubinemia (resolved) - possible component of hemolysis vs. Gilbert's Disease. Resolved now.
#Transaminitis, likely alcoholic fatty liver, possible compounding shock liver (resolved) - Elevated AST/ALT on admission 2:1. history of alcohol use and obesity, possible chronic elevation from fatty liver vs. shock liver. AST/ALT normalized. Will
continue to monitor.
#Lactic Acidemia (resolved) - was elevated immediately post cardiac arrest, has come back down. Blood gas showed metabolic acidosis without respiratory compensation; now normal pH.
#Elevated troponins (resolved)- peaked, likely secondary to cardiac arrest.
#Possible Aspiration Pneumonia, seen on admission (resolved as of 03/28/24)
- Blood cx 03/27 NGTD x 48hrs, sputum cx showing usual yvette. COVID/Flu on admission negative. Completed IV Abx through 03/28.
#Asthma - per mother at bedside patient has been using his inhaler more frequently for night time shortness of breath. 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 sleep apnea vs. worsening Asthma, however history uncertain. Will continue to observe.
patient currently intubated, will reassess when medically stable.
#Bipolar Disorder, uncertain - patient's mother states he was on Lexapro but stopped on his own due to weight gain. Presently patient is sedated, can consider psych consult in the future depending on patient status.
Diet - NPO
DVT Ppx - SCDs
GI Ppx - Protonix 40 BID IV
Code Status - Full Code
Anticipated Discharge: > 48 hours
Subjective/Interval History
-
OnBiPAP, still sedated on precedex this AM.
Objective Data
-
Labs:
Laboratory Results
04/04/24 04/04/24 04/04/24
03:58 03:59 04:13
WBC 9.1
Hgb 8.5 L
Hct 27.2 L
Plt Count 401 H
HCO3 Cancelled 35.3 H
Sodium 137
Potassium 4.4
Chloride 97 L
Carbon Dioxide 37 H
BUN 15
Creatinine 0.5 L
Glucose 106 H
Calcium 8.6
Total Bilirubin 1.1
AST 53
ALT 25
Alkaline Phosphatase 138 H
Vital Signs:
Vital Signs
Temp Pulse Resp BP Pulse Ox
99.2 F 86 21 160/95 99
04/04/24 04:00 04/04/24 06:00 04/04/24 06:00 04/04/24 06:00 04/04/24 06:00
I&O
04/02/24 04/03/24 04/04/24
06:59 06:59 06:59
Intake Total 3347.4 / 3472.5 3502.4 / 3625.0 1271.6 / 1271.6
Output Total 2510 / 2610 1999 / 2049 2470 / 2470
Balance 837.4 / 862.5 1502.4 / 1575.0 -1198.4 / -1198.4
Review of Systems
-
Unable to obtain full review of systems at this time due to: Other (Sedated)
Physical Exam
-
General: Well Developed, Well Nourished, No Apparent Distress, Appears Chronically Ill and Obese
HEENT: Normocephalic, Atraumatic and Oxygen (BiPAP 9L 12/5)
Respiratory: Clear to Auscultation; Negative Wheezes, Rales or Rhonchi
Cardiac: Regular Rhythm and S1/S2; Negative Murmur or Tachycardic
Breast: N/A
GI: Soft, Nondistended and Normal Bowel Sounds
Genito-urinary: Clear Urine and Murguia
Musculoskeletal: No Clubbing, No Cyanosis and No Edema
Skin: Warm, Dry and IV Access / Catheter Site
Neuro: Sedated
--- NOTE | 2024-04-04 07:19 | W.PN.INTV ---
Today's Communication / Plan
Recommendations
Continue BiPAP as needed and nightly
Advance diet as able
Hopefully can resume nebulized therapy once isolation is discontinued
Continue Precedex
Remains on antibiotics
Rate control
Assessment
-
Assessment: 38-year-old male non-smoker with a past medical history of persistent A-fib on Eliquis, bipolar affective disorder, asthma, and hypertension who presented with vomiting blood 1 day prior to arrival with dark stools as well as a
nosebleed. He has been having fatigue, shortness of breath and confusion with chest pain. He is normally on Eliquis but he has been holding it for few days due to his bleeding. He does follow-up with cardiology with last visit on 02/17/[address] Phillips[address] He has a history of nonischemic cardiomyopathy with prior EF of 20-25% with global hypokinesis from echo in December 2023. He was discussing getting an ablation for his A-fib. He has a history of cardioversion x 2 with failure to
restore into sinus rhythm. Also it has been difficult to choose an antiarrhythmic drug in the setting of his lithium drug use with risk of QT prolongation. In the ER he told the doctor he has been having a bloody nose which started on the day of
ER arrival, and has been vomiting bright red blood with dark tarry stools for 1 week. Last dose of Eliquis was on Friday (03/21/2024). In the ER he was afebrile to 97.1 �F, pulse rate 97, breathing at 20 breaths/minute, BP 129/83 and saturating 98%
on room air. Initial labs showed Hb 8.9, platelet count 115, sodium 123, chloride 87, BUN 33, serum osmolarity 302, and urinalysis negative for signs of UTI. Initial CXR showed suspected small right pleural effusion with possible pneumonia in the
right middle lobe. He was initially admitted to the IMU for a GI bleed with epistaxis. Overnight he was agitated and required Precedex drip so was transferred to the ICU, and developed a cardiac arrest while trying to get up out of bed. He was
labeled DNR however when the ICU PIZZA DELIVERY DRIVER call the family this was reversed, and CPR/ACLS was initiated. He was given an amp of epinephrine and pulse was regained and then he became bradycardic and lost pulse again. CPR resumed and given 2 A of epi and
patient was intubated. ROSC regained. Due to his prearrest seizure-like activity, neurology was called and empiric Keppra was given. TTM was not started given his acute upper GI bleed and epistaxis. He has continued to be managed in the ICU and
drilling field operator services consulted for additional management/recommendations.
Chronic conditions PCT: Asthma, hypertension, bipolar 1 disorder, A-fib
Impression:
#Hemorrhagic shock - shock state now resolved
#In-hospital cardiac arrest with preceding seizure-like activity (withdrawal seizure vs myoclonic jerks)
#Acute blood loss anemia due to reported epistaxis and UGIB with hematemesis
#Acute respiratory failure with hypoxia now on mechanical ventilation (intubated 03/24/2024)
Extubated 04/03/2024
#RUL + bilateral lower lobe pneumonia (confirmed on CT Chest from 03/24/2024)
#Acute thrombocytopenia
#Alcoholism with use of alcohol use drinking vodka daily as well as wine
#Suspected alcohol withdrawal seizure
#History of anxiety
#Metabolic acidosis with increased anion gap + respiratory acidosis - acidosis now resolved
#Lactic acidosis � now resolved
#Hypochloremic, hyponatremia � now resolved
#Hyperglycemia � now resolved
#Transaminitis with hyperbilirubinemia
#Elevated troponin likely due to cardiac arrest
#Chronic HFrEF with RV dysfunction seen on TTE from 03/24/2024
Plan/recommendations:
At this time, patient appears to be improved overall
Chest exam improved, less secretions noted
Extubated 04/03
Tolerated BiPAP
Tachycardia improved with Precedex therapy
Negative fluid status continues
CXR 04/01 without acute findings, improved
Moving forward
Continue with BiPAP as needed and nightly
Airway clearance measures
Out of bed to chair as able, PT/OT
Attempt to wean Precedex but would not discontinue at this time
Unable to give nebulized therapy due to isolation
Once isolation discontinued resume DuoNebs 4 times daily and budesonide twice a day
Presently remains on Flovent 2 puffs twice a day, albuterol as needed
Patient presented with bloody emesis, dark stool
Tolerating tube feeds
Patient had bowel movement 03/29
Abdominal x-ray unremarkable
Abdomen is benign, soft
Tolerating tube feeds
OG tube now out, will need to reassess p.o. intake once mental status optimized
Hopefully can advance diet once following commands more consistently
ID following
Patient remains on Augmentin, recent episode of epistaxis noted, nasal packing in place
Was on Zosyn, now discontinued
Remdesivir continues
Fevers now returned
Decadron discontinued 03/30
No significant hypoxia at this time. Will follow
Chest x-ray without findings
Cultures pending
Fevers seem to be improved?
Patient with significant intermittent agitation
Head CT without acute findings
Patient with episode of PEA, seizure activity
Neurology was following, EEG without evidence of seizures
Remains on phenobarbital, per neuro recommendations
Continue with folic acid, thiamine
History of alcohol abuse noted, last drink 03/22
Remains on Seroquel, 100 mg twice a day
Will need to transition to oral when able
Follow QTc
Lasix therapy continues, beta-kevin noted
Eliquis remains on hold, last dose 03/21. Significant epistaxis noted
Required transfusion 03/23
ENT also following
Negative fluid balance continues
Continue beta-kevin therapy, may be contributing to tachycardia
Echo 03/24/2024
EF 30%, global hypokinesis, enlarged RV size with reduced function, PA pressure 30
Diuresis continues
Remains on Lopressor, increase dosing per cardiology
Atrial fibrillation continues
Rate seems better controlled throughout the day today
Dopplers negative for DVT
Follow blood sugars
Patient with bloody emesis and tarry stool prior to admission
Hemoglobin stable at 7.8, transfuse 1 unit 03/23
Abdominal ultrasound with hepatic infiltration, no evidence of cirrhosis
GI following, last seen 03/25, signed off
Recommended to continue pantoprazole twice daily
EGD was not pursued
Hold bowel regimen, now with loose stool
GI prophylaxis: On pantoprazole
DVT prophylaxis: Lovenox 40 mg every 12 hours
Follow electrolytes
Agitation continues to be an issue
Patient drinks half a bottle of vodka according to mother
Last drink 03/22/2024
Sedation vacation as able
DVT ppx: SCDs and continue LMWH; previously he stopped his Eliquis PCT due to nosebleeds, plus he was scheduled for an ablation given Hx of A-fib
GI prophylaxis: Remains on Protonix twice daily
Reviewed with sister at bedside
Critical care statement: A total of 31 minutes of critical care time was provided for this patient today. This includes management of unstable vital signs, evaluation of the patient at bedside, reviewing the patient's pertinent medical records
including radiographs, microbiology, laboratory evaluations, and discussion with primary team, consultants, pharmacy, nutrition, physical therapy, case management, charge nurse, critical care nursing, and respiratory therapy.
Data:
CXR 03/24/2024:
New mild right upper lobe airspace disease concerning for developing pneumonia.
Possible developing pneumonia in the right costophrenic angle versus atelectasis. Progressed. Mild.
Tiny right pleural effusion. Progressed.
Cardiomegaly. Stable.
CXR 03/27/2024:
1. Moderate cardiomegaly. Mild pulmonary edema.
2. Suspected small bilateral pleural effusions. Left lower lobe airspace disease may also be present.
CXR 03/28/2024: Mild to moderate CHF, slightly progressed. Small right and [id number] left pleural effusions with associated atelectasis and/or pneumonia, progressed.
CT chest/abdomen/pelvis without contrast 03/24/2024:
Moderate bibasilar consolidation. This may represent atelectasis or pneumonia.
Bilateral lower lobe, lingular and right upper lobe atelectasis versus scarring.
Small pericardial effusion.
Findings suggesting mild volume overload or third spacing.
Minimal diverticulosis.
Subjective Dataa
Subjective Data
Date of Service:
Date of Service: April 04, 2024
Chief Complaint: Weigh Boss Follow Up
Subjective:
Patient with persistent tachycardia yesterday p.m. 4 hours without any issues, heart rate 160s. Improved with Precedex. Tolerated BiPAP overnight. Still intermittently confused but does know he is in the hospital
Objective Data
Data Reviewed
Vital Signs / I&O / Oxygen:
Vital Signs
Temp Pulse Resp BP Pulse Ox
99.2 F 86 21 160/95 99
04/04/24 04:00 04/04/24 06:00 04/04/24 06:00 04/04/24 06:00 04/04/24 06:00
Intake and Output
04/03/24 04/04/24 04/05/24
06:59 06:59 06:59
Intake Total 3502.4 / 3625.0 1271.6 / 1271.6
Output Total 1999 2470 / 2470
Balance 1502.4 / 1575.0 -1198.4 / -1198.4
SaO2 [CPAP/PSV] 100
SaO2 [A/C] 99
SaO2 99
Nasal Cannula flow liters per 4
minute
Physical Exam
General: Comfortable
HEENT: Normocephalic, Anicteric, Other (Thick neck) and Other (ETT in place)
Cardiovascular: S1-S2, Regular Rhythm (Tachycardic), Murmur (n), Rub (n), Peripheral Edema (Trace lower extremity edema bilaterally) and Other (Right upper extremity PICC line)
Respiratory: Wheeze (Mild), Crackles (few), Rhonchi (negative), Non-Labored Respirations and Stridor (n)
GI: Soft, Non Distended, Non Tender and Normal Bowel Sounds
Neurology: Lethargic (Sedated. Moving all extremities, following some commands, answering some questions)
Skin: Warm, Dry, Cyanosis (negative), Jaundice (negative) and Rash (negative)
Labs/Micro/Reports
Lab Data
04/04/24 03:59
04/04/24 03:59
Laboratory Results
04/04/24 04/04/24
03 04:13
pH Cancelled 7.44
pCO2 Cancelled 52 H
pO2 Cancelled 148 H
HCO3 Cancelled 35.3 H
O2 Delivery Level Cancelled Bi pap
Microbiology
04/01/24 11:04 Blood/Venous Blood Culture - Preliminary
No Growth in 48 hours- Final report to follow
04/01/24 11:02 Tracheal Aspirate Respiratory Culture - Final
S aureus-Methicillin Sensitive
04/01/24 11:02 Tracheal Aspirate Gram Stain - Final
04/01/24 11:22 Nasal Swab Influenza Types A & B (TAYE) - Final
Negative for Influenza A & B, NAAT
Negative results must be combined with clinical observations
and patient history.
Nucleic Acid Amplification test (NAAT)performed on the
[employer] platform.
03/27/24 09:01 Blood/Venous Blood Culture - Final
No Growth - Final Report
03/27/24 09:01 Blood/Venous Blood Culture - Final
No Growth - Final Report
--- NOTE | 2024-04-04 08:00 | PTCARENOTE ---
Assumed care of patient. Pt rec'd sleeping. Arouses to verbal stimuli. Pupils 2/sluggish. Occasionally follows simple commands. Uncooperative w/ oral care. S1 S2 irregular ... afib on monitor. +PP. +2 generalized edema. Arms and legs
elevated on pillows. Pt rec'd on bipap...sats 100%. Lungs diminished w/ scattered coarse rhonchi throughout. Weak cough...weak gag. Abdomen obese...+BS. FMS draining liquid brown stool...flushed w/o issue. Murguia draining yellow/aj
urine...murguia care done. Sacrum intact. Right DL PICC w/ precedex gtt infusing...see interventions. VS documented. Safe environment confirmed. Bed alarm on. Will continue to monitor closely.
[2024-04-04] MEDS: PROTONIX IV 40 MG IV ×2 (08:30→20:33)
[2024-04-04] MEDS: NSS (PRESERVATIVE FREE) 10 ML IV ×2 (08:30→20:33)
[2024-04-04] MEDS: LOVENOX 40 MG SC ×2 (08:31→20:33)
[2024-04-04] MEDS: LASIX 40 MG IV (08:35)
[2024-04-04] MEDS: SEROQUEL PO ×2 (08:37→20:34)
[2024-04-04] MEDS: FLOVENT 220 MCG INHALER 2 PUFF INH ×2 (08:49→21:45)
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
--- NOTE | 2024-04-04 11:44 | W.PN.ID1 ---
Date of Service
Date of Service: April 04, 2024
Today's Communication
c/w cefazolin
Assessment / Plan
# Recurrence of fever 04/01 - resolved
# VDRF: failed wean
# Suspect tracheitis
- now on core Ts and tmax 100.9
- Repeat bcx neg to date
- UA neg
- 04/01 CXR: no pneumonia
- Sputum: MSSA
- c/w cefazolin 2 gm iv q8 hours
- Follow temps, wbc
# COVID infection
- 03/28/24 COVID ag positive
- Unvaccinated
- s/p Remdesivir x 5d, completed 04/02
- Continue COVID isolation x10 days
# s/p UGI bleed/hematemesis
# Epistaxis - packing removed 03/29
# Alcohol withdrawal
# s/p PEA cardiac arrest
# Conditions [employer]ER
Afib on Eliquis
HTN
HFrEF
anxiety
bipolar disorder
Substance abuse in the past
ETOH abuse
Robotic asst lap LACY umbilical/ventral hernia repair w mesh (04/18/2022)
Chief Complaint
-: Fever and Other (covid, tracheitis)
Subjective / Review of Systems
now on core Ts and tmax 100.9
bp stable
now on NC at 2L
sedated on precedex
Vital Signs / Physical Exam
Vital Signs
Vital Signs
Temp Pulse Resp BP Pulse Ox
100.3 F 91 28 160/85 100
04/04/24 11:06 04/04/24 09:00 04/04/24 09:00 04/04/24 08:35 04/04/24 09:00
Physical Exam
Constitutional: No Acute Distress and Chronically Ill
Cardiovascular: Regular Rate and S1/S2; Negative Murmur or Rub
Pulmonary: Clear and Symmetric; Negative Wheezes or Rales
Gastrointestinal: Soft, Non Tender, Non Distended and Normal Bowel Sounds
Skin: Warm and Dry; Negative Rash or Jaundice
Neurological: Negative Awake
Objective Data
Lab Data
Lab Results
04/04/24 03:59
04/04/24 03:59
PT 15.9 Sec (11.4-14.6) H 03/25/24 04:16
INR 1.24 03/25/24 04:16
APTT 26.3 Sec (23.4-35.0) 03/24/24 03:19
Estimated Creat Clear > 125 ml/min 04/04/24 03:59
Lactic Acid 1.1 mmol/L (0.7-2.0) 03/24/24 09:25
Total Bilirubin 1.1 mg/dl (0.2-1.3) 04/04/24 03:59
AST 53 U/L (17-59) 04/04/24 03:59
ALT 25 U/L (0-50) 04/04/24 03:59
Alkaline Phosphatase 138 U/L (38-126) H 04/04/24 03:59
Most recent labs reviewed.
Micro Results:
04/01/24 11:04 Blood Culture - Preliminary
Blood/Venous No Growth in 72 hours- Final report to follow
04/01/24 11:02 Respiratory Culture - Final
Tracheal Aspirate S aureus-Methicillin Sensitive
Gram Stain - Final
04/01/24 11:22 Influenza Types A & B (TAYE) - Final
Nasal Swab Negative for Influenza A & B, NAAT
Negative results must be combined with clinical observations
and patient history.
Nucleic Acid Amplification test (NAAT)performed on the
[employer] platform.
03/27/24 09:01 Blood Culture - Final
Blood/Venous No Growth - Final Report
03/27/24 09:01 Blood Culture - Final
Blood/Venous No Growth - Final Report
03/27/24 17:30 Respiratory Culture - Final
Sputum Usual Respiratory Michelle
Gram Stain - Final
03/28/24 15:21 Influenza Types A & B (TAYE) - Final
Nasal Swab Negative for Influenza A & B, NAAT
Negative results must be combined with clinical observations
and patient history.
Nucleic Acid Amplification test (NAAT)performed on the
[employer] platform.
03/25/24 13:46 Respiratory Culture - Final
Endotracheal Usual Respiratory Michelle
Gram Stain - Final
03/26/24 03:45 Legionella Urinary Antigen - Final
Urine Negative for Legionella pneumophila Serogroup 1 antigen.
A negative result does not rule out the possiblity of
Legionella infection due to other serogroups or species of
Legionella. Clinical correlation is recommended.
Streptococcus pneumoniae Antigen (M - Final
Negative for Streptococcus pneumoniae antigen.
A negative result does not exclude infection with
Streptococcus pneumoniae. Clinical correlation is
recommended.
03/24/24 17:54 Legionella Urinary Antigen - Final
Urine Negative for Legionella pneumophila Serogroup 1 antigen.
A negative result does not rule out the possiblity of
Legionella infection due to other serogroups or species of
Legionella. Clinical correlation is recommended.
Streptococcus pneumoniae Antigen (M - Final
Negative for Streptococcus pneumoniae antigen.
A negative result does not exclude infection with
Streptococcus pneumoniae. Clinical correlation is
recommended.
04/02/24 peripheral US: no DVT BLE
04/01/24 CXR: No radiographically demonstrable pneumonia.
03/31/24 CXR: Resolved CHF versus acute pulmonary edema in the interval since prior study.
03/29/24 Periph Vasc US: Occlusive thrombus formation in the left basilic vein
03/28/24 CXR: Mild to moderate CHF, slightly progressed. Small right and [id number] left pleural effusions with associated atelectasis and/or pneumonia, progressed.
03/27/24 CXR: Moderate cardiomegaly. Mild pulmonary edema. Suspected small bilateral pleural effusions. Left lower lobe airspace disease may also be present.
03/27/24 AXR: Nonspecific bowel gas pattern without signs of obstruction.
03/24/24 CT a/p: Moderate bibasilar consolidation. This may represent atelectasis or pneumonia. Bilateral lower lobe, lingular and right upper lobe atelectasis versus scarring. Small pericardial effusion. Findings suggesting mild volume overload or
third spacing.
--- NOTE | 2024-04-04 12:00 | PTCARENOTE ---
Pt reassessed...no major changes. On 2L N/C...sats 99%. Seen by PT/OT this am. VSS. Safe environment confirmed. Will continue to monitor.
--- NOTE | 2024-04-04 13:25 | PTCARENOTE ---
Pt increasingly agitated...spitting mucous, uncooperative w/ oral care, attempting to swing arms at nurse. Ativan given...see MAR.
--- NOTE | 2024-04-04 14:00 | PTCARENOTE ---
Phone call rec'd by health unit coordinator that a 'brother' for Mr Shanika was on telephone and asked if he could visit. UC said she would have to ask nurse...call ended.
Pt's sister, Vicky, called and made aware of phone call since pt's biological brother is .
2nd phone call rec'd from supposed brother...he clarified that he's a 'step brother'. His name is George Davies ([phone]). He stated that he had 'permission to get an update' and 'can I visit'. Man was told that he could not visit and would
need to get update from pt's contacts.
Pt's sister, Vicky, updated and she stated that she does not know this man and does NOT want him to visit.
[2024-04-04] MEDS: LOPRESSOR 5 MG IV (15:19)
--- NOTE | 2024-04-04 16:00 | PTCARENOTE ---
Pt on 2L N/C...reassessed...no major changes noted. Remains on precedex gtt...see intervention. Unrestrained. Following simple commands. Bed alarm on. Will continue to monitor.
--- NOTE | 2024-04-04 16:41 | PTOTSP ---
ST Consult
Received and appreciate orders for VETERINARY PRACTITIONER evaluation. Attempted to see pt at bedside for evaluation; however, pt unable to awaken to an alert enough state to safely and meaningfully participate in evaluation. Recommend pt remaining NPO and continue TFs
at this time with the utmost aspiration precautions (HOB upright as often as possible; oral care QID with suctioning as needed). VETERINARY PRACTITIONER team to attempt evaluation again tomorrow.
--- NOTE | 2024-04-04 20:00 | PTCARENOTE ---
Resumed care of pt laying in bed sedated on Precedex gtt. Pt arousable to voice, opens eyes, moves extremities some, then goes back to sleep. HR in the 70's -90's in Afib on the monitor. HR irreg. POX 98% on 2 LO2 NC. Lungs dec, course. Occ weak
cough. Oral care provided. Weak gag noted. + bowel, round obese abd. FMS in place draining liquid brown stool, flushed per protocol. Temp sensing murguia in place draining aj urine. Yudith care provided. +2 GA noted. Palpable peripheral pulses. Heels
elevated on pillows. Knee high seq in place. Right dual picc in place infusing Precedex gtt @0.8 mcg/kg/hr. Pt repositioned. Bed alarm in place. Will continue to monitor.
[2024-04-05] VITALS (29 sets, daily range): BP systolic 147–177; BP diastolic 86–129; PULSE 2–107; BMI 37.4
[2024-04-05] MEDS: ATIVAN 1 MG IV ×2 (02:22→06:14)
[2024-04-05] MEDS: NSS (PRESERVATIVE FREE) 0.5 ML IV (02:24)
[2024-04-05] MEDS: PRECEDEX 100 IV ×5 (02:53→20:02)
[2024-04-05] MEDS: ANCEF 10 IV ×3 (03:00→20:03)
--- NOTE | 2024-04-05 03:07 | PTCARENOTE ---
Attempted to wean down Precedex, pt BIPAP alarming, pt found sideways in the bed. Pt reaching around but not enough strength to pull anything off or sit up self in bed. Precedex titrated, PRN Ativan administered as ordered. Bedbath provided. Pt
positioned per comfort. Pt remains on Bipap 02/04 with [address] Bed alarm in place. Will continue to monitor.
[2024-04-05 04:20] LABS: % Basophils 1.9 % (0-2); % Eosinophils 4.4 % (0-6); % Immature Granulocytes 0.7 % (0-0.5); % Lymphocytes 16.3 % (20.5-51.1); % Monocytes 14.6 % (1.7-9.3); % Neutrophils 62.1 % (42.2-75.2); Absolute Basophils 0.1 10^3/uL (0-0.2); Absolute Eosinophils 0.3 10^3/uL (0-0.7); Absolute Immature Granulocytes 0.1 10^3/uL (0-0.05); Absolute Lymphocytes 1.1 10^3/uL (1.2-3.4); Absolute Neutrophils 4.4 10^3/uL (1.4-6.5); Hematocrit 27.9 % (39.0-52.0); Hemoglobin 8.9 g/dL (13.0-18.0); Mean Corp Hgb Conc. 31.9 g/dL (33.0-37.0); Mean Corpuscular Hgb 28.4 pg (27.0-31.0); Mean Corpuscular Volume 89.1 fL (80.0-94.0); Mean Platelet Volume 10.2 fL (7.4-10.4); Nucleated Red Blood Cells % 0 % (-); Platelet Count 402 10^3/uL (130-400); Red Blood Cell Count 3.13 10^6/uL (4.70-6.10); Red Cell Dist. Width 15.1 % (11.5-14.5)
[2024-04-05 04:51] LABS: ALT (SGPT) 21 U/L (0-50); AST (SGOT) 55 U/L (17-59); Albumin 3.5 g/dl (3.5-5.0); Alkaline Phosphatase 135 U/L (38-126); Blood Urea Nitrogen 19 mg/dl (9-20); Calcium 8.4 mg/dl (8.4-10.2); Carbon Dioxide 35 mmol/L (22-30); Chloride 98 mmol/L (98-107); Estimated Creatinine Clearance > 125 ml/min; Glucose 102 mg/dl (70-99); Potassium 4.7 mmol/L (3.5-5.1); Sodium 139 mmol/L (135-145); Total Bilirubin 1.1 mg/dl (0.2-1.3); Total Protein 6.5 g/dl (6.3-8.2); eGFR > 60.00
[2024-04-05 04:53] LABS: NT-proBNP 4710 pg/ml
[2024-04-05] MEDS: LOPRESSOR 10 MG IV ×4 (05:05→23:14)
--- NOTE | 2024-04-05 06:24 | PTCARENOTE ---
Pt sideways in the bed. Bipap mask removed. 2 LO2 NC applied. Pt fighting oral care, attempting to hit, but very weak. Pt keeps putting legs over side rails, unable to follow commands. Speech is garbled, incomprehensible speech. PRN Ativan
administered as ordered. Will monitor.
[2024-04-05] MEDS: SEROQUEL PO ×2 (07:29→20:12)
[2024-04-05] MEDS: LOVENOX 40 MG SC ×2 (07:41→20:03)
[2024-04-05] MEDS: PROTONIX IV 40 MG IV ×2 (07:42→20:02)
[2024-04-05] MEDS: NSS (PRESERVATIVE FREE) 10 ML IV ×2 (07:42→20:02)
[2024-04-05] MEDS: LASIX 40 MG IV (07:42)
[2024-04-05] MEDS: FLOVENT 220 MCG INHALER 2 PUFF INH ×2 (08:23→20:16)
--- NOTE | 2024-04-05 08:52 | PTCARENOTE ---
received pt from previous rn- pt arouses to voice and tactile, moves all extremities, drowsy. pt continues on precedex. afib on monitor. am care provided. turned and repositioned. remains on 2LNC. bed alarm on and functioning. see assessment for
further details. all safety precautions in place.
--- NOTE | 2024-04-05 09:21 | W.PN.ID1 ---
Date of Service
Date of Service: April 05, 2024
Today's Communication
Continue cefazolin 2 gm iv q8 hours (d4 of 7)
Assessment / Plan
# Recurrence of fever 04/01 - resolved
# Suspect tracheitis with MSSA
# s/p VDRF: extubated
- Repeat bcx neg to date
- UA neg
- 04/01 CXR: no pneumonia
- Sputum: MSSA
- c/w cefazolin 2 gm iv q8 hours (d4 of 7)
# COVID infection
- 03/28/24 COVID ag positive
- Unvaccinated
- s/p Remdesivir x 5d, completed 04/02
- Continue COVID isolation x10 days
# s/p UGI bleed/hematemesis
# Epistaxis - packing removed 03/29
# Alcohol withdrawal
# s/p PEA cardiac arrest
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
Afib on Eliquis
HTN
HFrEF
anxiety
bipolar disorder
Substance abuse in the past
ETOH abuse
Robotic asst lap LACY umbilical/ventral hernia repair w mesh (04/18/2022)
Chief Complaint
-: Fever, Pneumonia and Other (covid, tracheitis)
Vital Signs / Physical Exam
Vital Signs
Vital Signs
Temp Pulse Resp BP Pulse Ox
99.8 F 88 20 149/129 96
04/05/24 07:19 04/05/24 08:26 04/05/24 08:26 04/05/24 08:00 04/05/24 08:26
Physical Exam
Constitutional: No Acute Distress
Cardiovascular: Regular Rate and S1/S2
Pulmonary: Clear (anteriorly)
Gastrointestinal: Soft, Non Tender, Non Distended and Normal Bowel Sounds
Genito-Urinary: Muniz and Clear Urine
Psychological: Calm
Objective Data
Lab Data
Lab Results
04/05/24 04:02
04/05/24 04:02
PT 15.9 Sec (11.4-14.6) H 03/25/24 04:16
INR 1.24 03/25/24 04:16
APTT 26.3 Sec (23.4-35.0) 03/24/24 03:19
Estimated Creat Clear > 125 ml/min 04/05/24 04:02
Lactic Acid 1.1 mmol/L (0.7-2.0) 03/24/24 09:25
Total Bilirubin 1.1 mg/dl (0.2-1.3) 04/05/24 04:02
AST 55 U/L (17-59) 04/05/24 04:02
ALT 21 U/L (0-50) 04/05/24 04:02
Alkaline Phosphatase 135 U/L (38-126) H 04/05/24 04:02
Most recent labs reviewed.
Micro Results:
04/01/24 11:04 Blood Culture - Preliminary
Blood/Venous No Growth in 72 hours- Final report to follow
04/01/24 11:02 Respiratory Culture - Final
Tracheal Aspirate S aureus-Methicillin Sensitive
Gram Stain - Final
04/01/24 11:22 Influenza Types A & B (TAYE) - Final
Nasal Swab Negative for Influenza A & B, NAAT
Negative results must be combined with clinical observations
and patient history.
Nucleic Acid Amplification test (NAAT)performed on the
[employer] platform.
03/27/24 09:01 Blood Culture - Final
Blood/Venous No Growth - Final Report
03/27/24 09:01 Blood Culture - Final
Blood/Venous No Growth - Final Report
03/27/24 17:30 Respiratory Culture - Final
Sputum Usual Respiratory Michelle
Gram Stain - Final
03/28/24 15:21 Influenza Types A & B (TAYE) - Final
Nasal Swab Negative for Influenza A & B, NAAT
Negative results must be combined with clinical observations
and patient history.
Nucleic Acid Amplification test (NAAT)performed on the
[employer] platform.
03/25/24 13:46 Respiratory Culture - Final
Endotracheal Usual Respiratory Michelle
Gram Stain - Final
03/26/24 03:45 Legionella Urinary Antigen - Final
Urine Negative for Legionella pneumophila Serogroup 1 antigen.
A negative result does not rule out the possiblity of
Legionella infection due to other serogroups or species of
Legionella. Clinical correlation is recommended.
Streptococcus pneumoniae Antigen (M - Final
Negative for Streptococcus pneumoniae antigen.
A negative result does not exclude infection with
Streptococcus pneumoniae. Clinical correlation is
recommended.
03/24/24 17:54 Legionella Urinary Antigen - Final
Urine Negative for Legionella pneumophila Serogroup 1 antigen.
A negative result does not rule out the possiblity of
Legionella infection due to other serogroups or species of
Legionella. Clinical correlation is recommended.
Streptococcus pneumoniae Antigen (M - Final
Negative for Streptococcus pneumoniae antigen.
A negative result does not exclude infection with
Streptococcus pneumoniae. Clinical correlation is
recommended.
04/02/24 peripheral US: no DVT BLE
04/01/24 CXR: No radiographically demonstrable pneumonia.
03/31/24 CXR: Resolved CHF versus acute pulmonary edema in the interval since prior study.
03/29/24 Periph Vasc US: Occlusive thrombus formation in the left basilic vein
03/28/24 CXR: Mild to moderate CHF, slightly progressed. Small right and [id number] left pleural effusions with associated atelectasis and/or pneumonia, progressed.
03/27/24 CXR: Moderate cardiomegaly. Mild pulmonary edema. Suspected small bilateral pleural effusions. Left lower lobe airspace disease may also be present.
03/27/24 AXR: Nonspecific bowel gas pattern without signs of obstruction.
03/24/24 CT a/p: Moderate bibasilar consolidation. This may represent atelectasis or pneumonia. Bilateral lower lobe, lingular and right upper lobe atelectasis versus scarring. Small pericardial effusion. Findings suggesting mild volume overload or
third spacing.
[2024-04-05] MEDS: HALDOL 1 MG IV (12:09)
[2024-04-05] MEDS: HALDOL 2 MG IV ×3 (12:37→23:14)
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
[2024-04-05] MEDS: OFIRMEV 100 IV (12:40)
--- NOTE | 2024-04-05 12:57 | PTCARENOTE ---
weaning precedex as tolerated. haldol given as per order, Dr. Conde remains aware of pts restlessness, attempts to get oob. pt responds to name, follows some simple commands. on 2Lnc, assessment unchanged further.
--- NOTE | 2024-04-05 15:21 | W.PN.INTV ---
Today's Communication / Plan
Recommendations
Continue Precedex
Start Haldol until able to take orals
Monitor QT
IV Lasix
Continue antibiotic
Follow electrolytes
Aspiration precautions
BiPAP as able
If unable to start feedings in the next [address] a Dobbhoff tube.
Assessment
-
Assessment: 38-year-old male non-smoker with a past medical history of persistent A-fib on Eliquis, bipolar affective disorder, asthma, and hypertension who presented with vomiting blood 1 day prior to arrival with dark stools as well as a
nosebleed. He has been having fatigue, shortness of breath and confusion with chest pain. He is normally on Eliquis but he has been holding it for few days due to his bleeding. He does follow-up with cardiology with last visit on 02/17/[address] Phillips[address] He has a history of nonischemic cardiomyopathy with prior EF of 20-25% with global hypokinesis from echo in December 2023. He was discussing getting an ablation for his A-fib. He has a history of cardioversion x 2 with failure to
restore into sinus rhythm. Also it has been difficult to choose an antiarrhythmic drug in the setting of his lithium drug use with risk of QT prolongation. In the ER he told the doctor he has been having a bloody nose which started on the day of
ER arrival, and has been vomiting bright red blood with dark tarry stools for 1 week. Last dose of Eliquis was on Friday (03/21/2024). In the ER he was afebrile to 97.1 �F, pulse rate 97, breathing at 20 breaths/minute, BP 129/83 and saturating 98%
on room air. Initial labs showed Hb 8.9, platelet count 115, sodium 123, chloride 87, BUN 33, serum osmolarity 302, and urinalysis negative for signs of UTI. Initial CXR showed suspected small right pleural effusion with possible pneumonia in the
right middle lobe. He was initially admitted to the IMU for a GI bleed with epistaxis. Overnight he was agitated and required Precedex drip so was transferred to the ICU, and developed a cardiac arrest while trying to get up out of bed. He was
labeled DNR however when the ICU VP OF MARKETING call the family this was reversed, and CPR/ACLS was initiated. He was given an amp of epinephrine and pulse was regained and then he became bradycardic and lost pulse again. CPR resumed and given 2 A of epi and
patient was intubated. ROSC regained. Due to his prearrest seizure-like activity, neurology was called and empiric Keppra was given. TTM was not started given his acute upper GI bleed and epistaxis. He has continued to be managed in the ICU and
music therapist services consulted for additional management/recommendations.
Chronic conditions [employer]: Asthma, hypertension, bipolar 1 disorder, A-fib
Impression:
#Hemorrhagic shock - shock state now resolved
#In-hospital cardiac arrest with preceding seizure-like activity (withdrawal seizure vs myoclonic jerks)
#Acute blood loss anemia due to reported epistaxis and UGIB with hematemesis
#Acute respiratory failure with hypoxia now on mechanical ventilation (intubated 03/24/2024)
Extubated 04/03/2024
#RUL + bilateral lower lobe pneumonia (confirmed on CT Chest from 03/24/2024)
#Acute thrombocytopenia
#Alcoholism with use of alcohol use drinking vodka daily as well as wine
#Suspected alcohol withdrawal seizure
#History of anxiety
#Metabolic acidosis with increased anion gap + respiratory acidosis - acidosis now resolved
#Lactic acidosis � now resolved
#Hypochloremic, hyponatremia � now resolved
#Hyperglycemia � now resolved
#Transaminitis with hyperbilirubinemia
#Elevated troponin likely due to cardiac arrest
#Chronic HFrEF with RV dysfunction seen on TTE from 03/24/2024
Plan/recommendations:
-
Extubated 04/03
Continue nocturnal BiPAP and as needed.
Remains on supplemental oxygen.
-
Unfortunately mental status/agitation remains an issue-restless/agitated at times.
Patient with significant intermittent agitation
Head CT without acute findings
Patient with episode of PEA,?seizure activity
Neurology was following, EEG without evidence of seizures
Continue with folic acid, thiamine
History of alcohol abuse noted, last drink 03/22
Remains on Seroquel, 100 mg twice a day-has not been able to take due to poor mental status.
Follow QTc
Continue Precedex.
Antipsychotics, gave him some doses of Haldol. With monitor QT and seizure activity.
Will start standing dose of Haldol.
-
Systolic heart failure/atrial fibrillation
Chest x-ray without infiltrates 04/01/2024
proBNP 4710
Echocardiogram 03/24/2024: Ejection fraction 30 to 35%. Global hypokinesis. Mild enlarged right ventricular size with reduced right ventricular systolic function. Moderate left atrial dilatation with mild right atrial dilatation. No significant
valvular abnormalities. Small pericardial effusion
Negative fluid status continues.
Continue IV Lasix
Follow renal function electrolytes eventually restart anticoagulation.
Cardiology following.
-
Continue with BiPAP as needed and nightly
Airway clearance measures
Out of bed to chair as able, PT/OT
Unable to give nebulized therapy due to isolation
Once isolation discontinued resume DuoNebs 4 times daily and budesonide twice a day
Presently remains on Flovent 2 puffs twice a day, albuterol as needed
Patient presented with bloody emesis, dark stool
Currently n.p.o.-Dobbhoff tube was pulled once patient was extubated.
Hemoglobin is stable.
Patient had bowel movement 03/29
Abdominal x-ray unremarkable
Abdomen is benign, soft
Hopefully mental status will improve enough for a speech evaluation
ID following
MSSA tracheitis
Continue cefazolin 4/7 days
Remdesivir completed 04/02/2024
Continue to monitor for fevers-intermittent low-grade fevers may be from Precedex.
Decadron discontinued 03/30
No significant hypoxia at this time. Will follow
Chest x-ray without findings
-
Eliquis remains on hold, last dose 03/21. Significant epistaxis noted
Required transfusion 03/23
ENT also evaluated patient.
Dopplers negative for DVT
Patient with bloody emesis and tarry stool prior to admission
Hemoglobin stable. Transfuse 1 unit 03/23
Abdominal ultrasound with hepatic infiltration, no evidence of cirrhosis
GI following, last seen 03/25, signed off
Recommended to continue pantoprazole twice daily
EGD was not pursued
Hold bowel regimen, now with loose stool
GI prophylaxis: On pantoprazole
DVT prophylaxis: Lovenox 40 mg every 12 hours-eventually to restart full anticoagulation.
N.p.o. for now
If unable to take orals in the next 48 hours the dose of tube will need to be placed.
DVT ppx: SCDs and continue LMWH; previously he stopped his Eliquis [employer] due to nosebleeds, plus he was scheduled for an ablation given Hx of A-fib
GI prophylaxis: Remains on Protonix twice daily
Critical care statement: A total of 40 minutes of critical care time was provided for this patient today. This includes management of unstable vital signs, evaluation of the patient at bedside, reviewing the patient's pertinent medical records
including radiographs, microbiology, laboratory evaluations, and discussion with primary team, consultants, pharmacy, nutrition, physical therapy, case management, charge nurse, critical care nursing, and respiratory therapy.
Data:
CXR 03/24/2024:
New mild right upper lobe airspace disease concerning for developing pneumonia.
Possible developing pneumonia in the right costophrenic angle versus atelectasis. Progressed. Mild.
Tiny right pleural effusion. Progressed.
Cardiomegaly. Stable.
CXR 03/27/2024:
1. Moderate cardiomegaly. Mild pulmonary edema.
2. Suspected small bilateral pleural effusions. Left lower lobe airspace disease may also be present.
CXR 03/28/2024: Mild to moderate CHF, slightly progressed. Small right and [id number] left pleural effusions with associated atelectasis and/or pneumonia, progressed.
CT chest/abdomen/pelvis without contrast 03/24/2024:
Moderate bibasilar consolidation. This may represent atelectasis or pneumonia.
Bilateral lower lobe, lingular and right upper lobe atelectasis versus scarring.
Small pericardial effusion.
Findings suggesting mild volume overload or third spacing.
Minimal diverticulosis.
Subjective Dataa
Subjective Data
Date of Service:
Date of Service: April 05, 2024
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
Subjective:
Patient is lethargic, on Precedex
Not following,
Review of Systems
General: Other (Unable to obtain due to poor mental status)
Objective Data
Data Reviewed
Vital Signs / I&O / Oxygen:
Vital Signs
Temp Pulse Resp BP Pulse Ox
100.2 F 102 23 149/96 98
04/05/24 11:50 04/05/24 13:00 04/05/24 13:00 04/05/24 13:00 04/05/24 13:00
Intake and Output
04/04/24 04/05/24 04/06/24
06:59 06:59 06:59
Intake Total 1271.6 / 1291.9 688.0 / 715.0 165.5 / 165.5
Output Total 2470 / 2595 4125 / 4175 3125 / 3125
Balance -1198.4 / -1303.1 -3437.0 / -3460.0 -2959.5 / -2959.5
SaO2 [CPAP/PSV] 100
SaO2 [A/C] 99
SaO2 98
Nasal Cannula flow liters per 2
minute
Physical Exam
General: Comfortable
HEENT: Normocephalic, Anicteric, Other (Thick neck) and Other (ETT in place)
Cardiovascular: S1-S2, Regular Rhythm (Tachycardic), Murmur (n), Rub (n), Peripheral Edema (Trace lower extremity edema bilaterally) and Other (Right upper extremity PICC line)
Respiratory: Wheeze (Mild), Crackles (few), Rhonchi (negative), Non-Labored Respirations and Stridor (n)
GI: Soft, Non Distended, Non Tender and Normal Bowel Sounds
Neurology: Lethargic (Sedated. Moving all extremities, following some commands, answering some questions)
Skin: Warm, Dry, Cyanosis (negative), Jaundice (negative) and Rash (negative)
Labs/Micro/Reports
Lab Data
04/05/24 04:02
04/05/24 04:02
Microbiology
04/01/24 11:04 Blood/Venous Blood Culture - Preliminary
No Growth in 4 days- Final report to follow
04/01/24 11:02 Tracheal Aspirate Respiratory Culture - Final
S aureus-Methicillin Sensitive
04/01/24 11:02 Tracheal Aspirate Gram Stain - Final
--- NOTE | 2024-04-05 15:23 | CM ---
CM following re: discharge planning.
Discussed in rounds, reviewed pt's chart. Per Rounds meeting, pt requires 2L NC of O2, drowsy, lethargic, restless, following simple commands, continue supportive care.
D/C plan: uncertain at this time and will depend on pt's progress.
CM will follow with discharge plan updates as hospitalization progresses
--- NOTE | 2024-04-05 15:58 | PTCARENOTE ---
pt more alert but remains confused and disoriented. pt restless in bed, continues to be uncooperative. Dr. Allen aware, see mar for further details. assessment unchanged further.
--- NOTE | 2024-04-05 16:36 | W.PN.HOSP.TC ---
Addendum entered and electronically signed by Obie Arndt MD 04/05/24 17:27:
Seen and examined by me independently in collaboration with the medical psychotherapist.
Lab data and imaging data reviewed.
Addendum as below :
Patient remains to be encephalopathic.
Able to follow simple commands for me.
Agitation at times noted. Still requiring IV Precedex.
I doubt his encephalopathy is still secondary to alcohol withdrawal syndrome. He is day 13 of hospitalization. Suspect multifactorial.
Difficult exam neurologically but no obvious motor deficits. No obvious signs of external ophthalmoplegia. Patient on thiamine and folic acid.
Continue with supportive care and wean Precedex as able. Check ammonia level.
Continue with antibiotics per ID.
Haldol introduced for agitation management. Follow closely for any seizures.
Discussed with COMM[employer]ITY THE[employer] ACTOR and reimbursement liaison
Total time spent on today's encounter was 52 minutes which included time spent in counseling the patient/family regarding diagnosis and treatment plan as listed above, goals of care, and symptom management. Case was discussed with nursing staff,
specialists, and care coordinators/case management. All labs and imaging personally reviewed by me. Remainder the time spent in detailed review of previous records, lab data, imaging, and other medical provider documentation.
Original Note:
Today's Communication/Plan
-
C/w IV Abx. Wean sedation and assess mental status as able.
Assessment / Plan
Assessment / Plan
38 year old male
#Persistent Afib - Rate controlled on Lopressor 10mg IV q6. Will transition back to oral meds pending Speech Evaluation.
#Sepsis, likely secondary to COVID-19 Infection (resolved)
- Febrile for several days without white count, initially thought propofol rxn vs. bacterial infection, however repeat covid test on 03/28/24 positive. Hypothermic 96.6 F, tachycardic 102, source of infection COVID 19.
- stopped zosyn. s/p x1 dose decadron & 5d Remdesivir
#Persistent Fevers
- Tracheal aspirate cx growing MSSA- c/w Cefazolin (ID Following)
#Vtach Cardiac Arrest w/ CPR
- CXR did not show any osseous abnormalities. TTM not initiated due to UGI bleed. Weaned off pressure supports. Head CT showed atrophy and EEG showed diffuse cortical dysfunction without focal abnormality and no seizure activity.
- Extubated. on BiPAP at night for sleep apnea, NC during the day; to wean sedation per reimbursement liaison team
PT/OT ordered
#Alcohol Use Disorder w/ possible withdrawal seizure
- MSAS protocol. Thiamine and Folic acid, Ativan per protocol. Finished phenobarb taper. Should be out of DT window as patient has been in hospital >5d
#Superficial Venous Thrombus - swelling in L arm near peripheral line, US confirmed L basilic vein thrombosis. Line removed. Will observe.
#HFrEF - Echo showing EF of 30-35% with global hypokinesis w/ small pericardial effusion. C/w lasix 40mg QD. (Cardiology Following)
#Upper GI Bleed w/ Epistaxis
#Acute blood loss anemia (resolved)
- S/p 1u pRBCs. s/p TXA & cauterization for epistaxis. No signs of active bleeding on exam. Nasal packing removed. Will continue to monitor H&H. Transfuse if hgb <7.
- c/w IV protonix per GI.
#Elevated Glucose - initiated LDISS for glucose management
#Hyponatremia (resolved) - Off fluids. Assess volume status and replete as needed.
#Hyperbilirubinemia (resolved) - possible component of hemolysis vs. Gilbert's Disease. Resolved now.
#Transaminitis, likely alcoholic fatty liver, possible compounding shock liver (resolved) - Elevated AST/ALT on admission 2:1. history of alcohol use and obesity, possible chronic elevation from fatty liver vs. shock liver. AST/ALT normalized. Will
continue to monitor.
#Lactic Acidemia (resolved) - was elevated immediately post cardiac arrest, has come back down. Blood gas showed metabolic acidosis without respiratory compensation; now normal pH.
#Elevated troponins (resolved)- peaked, likely secondary to cardiac arrest.
#Possible Aspiration Pneumonia, seen on admission (resolved as of 03/28/24)
- Blood cx 03/27 NGTD x 48hrs, sputum cx showing usual yvette. COVID/Flu on admission negative. Completed IV Abx through 03/28.
#Asthma - per mother at bedside patient has been using his inhaler more frequently for night time shortness of breath. 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 sleep apnea vs. worsening Asthma, however history uncertain. Will continue to observe.
patient currently intubated, will reassess when medically stable.
#Bipolar Disorder, uncertain - patient's mother states he was on Lexapro but stopped on his own due to weight gain. Presently patient is sedated, can consider psych consult in the future depending on patient status.
Diet - NPO
DVT Ppx - SCDs
GI Ppx - Protonix 40 BID IV
Code Status - Full Code
Anticipated Discharge: > 48 hours
Subjective/Interval History
-
Patient arousable and able to respond to basic commands. He cannot express himself with words, though he appears to try.
Objective Data
-
Labs:
Laboratory Results
04/05/24
04:02
Sodium 139
Potassium 4.7
Chloride 98
Carbon Dioxide 35 H
BUN 19
Creatinine 0.5 L
Glucose 102 H
Calcium 8.4
Total Bilirubin 1.1
AST 55
ALT 21
Alkaline Phosphatase 135 H
Vital Signs:
Vital Signs
Temp Pulse Resp BP Pulse Ox
99.4 F 117 21 168/109 96
04/05/24 15:59 04/05/24 15:00 04/05/24 15:00 04/05/24 15:00 04/05/24 15:59
I&O
04/04/24 04/05/24 04/06/24
06:59 06:59 06:59
Intake Total 1271.6 / 1291.9 688.0 / 715.0 299.3 / 299.3
Output Total 2470 / 2595 4125 / 4175 3300 / 3300
Balance -1198.4 / -1303.1 -3437.0 / -3460.0 -3000.7 / -3000.7
Review of Systems
-
Unable to obtain full review of systems at this time due to: Other (patient awake, but minimally responsive and on mild sedation)
Physical Exam
-
General: Well Developed, Well Nourished, No Apparent Distress and Obese
HEENT: Normocephalic, Atraumatic, Moist Mucous Membranes, Anicteric, [place] Conjunctivae, Nose Appears Normal, Ears Appear Normal and Oxygen
Respiratory: Rhonchi; Negative Wheezes or Rales
Cardiac: S1/S2 and Irregular Rhythm; Negative Murmur or Tachycardic
Breast: N/A
GI: Soft, Nontender, Nondistended and Normal Bowel Sounds
Rectal: Brown
Genito-urinary: Clear Urine and [place]
Musculoskeletal: No Clubbing, No Cyanosis and No Edema
Skin: Warm and Dry
Neuro: Awake and Sedated
[2024-04-05] MEDS: APRESOLINE 10 MG IV (18:02)
[2024-04-05 18:30] LABS: Ammonia < 9 umol/L (9-30)
[2024-04-05] MEDS: LOPRESSOR 5 MG IV (20:03)
--- NOTE | 2024-04-05 20:48 | PTCARENOTE ---
Received patient disoriented to place and time, garbled and incomprehensible speech. Afib 110s-140s, prn metoprolol given. Normothermic, BP 150s/80s. 99% on room air, lung sounds coarse and diminished throughout, bipap HS. FMS in place draining
brown stool, thermistor murguia in place draining yellow urine. Right DL PICC patent, WNL, precedex gtt ongoing. Repositioned, mouth care done.
[2024-04-06] VITALS (29 sets, daily range): BP systolic 117–183; BP diastolic 72–151; PULSE 2–121; O2SAT 97; BMI 36.0
[2024-04-06] MEDS: APRESOLINE 10 MG IV ×2 (00:13→06:07)
[2024-04-06] MEDS: PRECEDEX 100 IV ×2 (00:15→04:20)
--- NOTE | 2024-04-06 00:21 | PTCARENOTE ---
Patient hypertensive, prn hydralazine given. Patient increasingly restless, ripping off bipap mask multiple times, not redirectable. Precedex gtt ongoing. Otherwise patient assessment unchanged from previous, hourly rounding and patient safety
checks ongoing.
[2024-04-06] MEDS: ANCEF 10 IV ×3 (04:21→21:02)
--- NOTE | 2024-04-06 04:35 | PTCARENOTE ---
Patient ripped out FMS, new one placed. Mitts applied. Patient combative and restless.
[2024-04-06 04:46] LABS: % Basophils 1.8 % (0-2); % Immature Granulocytes 0.5 % (0-0.5); % Lymphocytes 19.1 % (20.5-51.1); % Monocytes 16.1 % (1.7-9.3); % Neutrophils 61.5 % (42.2-75.2); Absolute Basophils 0.1 10^3/uL (0-0.2); Absolute Eosinophils 0.1 10^3/uL (0-0.7); Absolute Lymphocytes 1.5 10^3/uL (1.2-3.4); Absolute Monocytes 1.3 10^3/uL (0.1-0.6); Absolute Neutrophils 4.8 10^3/uL (1.4-6.5); Hematocrit 26.8 % (39.0-52.0); Hemoglobin 8.6 g/dL (13.0-18.0); Mean Corp Hgb Conc. 32.1 g/dL (33.0-37.0); Mean Corpuscular Hgb 27.7 pg (27.0-31.0); Mean Corpuscular Volume 86.5 fL (80.0-94.0); Nucleated Red Blood Cells % 0 % (-); Platelet Count 412 10^3/uL (130-400); Red Cell Dist. Width 15.1 % (11.5-14.5); White Blood Cell Count 7.8 10^3/uL (4.8-10.8)
[2024-04-06 05:11] LABS: ALT (SGPT) 19 U/L (0-50); AST (SGOT) 47 U/L (17-59); Albumin 3.5 g/dl (3.5-5.0); Alkaline Phosphatase 154 U/L (38-126); Blood Urea Nitrogen 14 mg/dl (9-20); Calcium 8.6 mg/dl (8.4-10.2); Carbon Dioxide 28 mmol/L (22-30); Chloride 101 mmol/L (98-107); Estimated Creatinine Clearance > 125 ml/min; Glucose 96 mg/dl (70-99); Potassium 3.8 mmol/L (3.5-5.1); Sodium 137 mmol/L (135-145); Total Bilirubin 1.2 mg/dl (0.2-1.3); Total Protein 6.2 g/dl (6.3-8.2); eGFR > 60.00
[2024-04-06] MEDS: LOPRESSOR 10 MG IV (06:07)
[2024-04-06] MEDS: HALDOL 2 MG IV ×2 (07:04→22:25)
[2024-04-06] MEDS: PROTONIX IV 40 MG IV (07:04)
[2024-04-06] MEDS: NSS (PRESERVATIVE FREE) 10 ML IV (07:04)
[2024-04-06] MEDS: LASIX 40 MG IV (07:04)
[2024-04-06] MEDS: LOVENOX 40 MG SC (07:04)
[2024-04-06] MEDS: SEROQUEL PO (07:18)
[2024-04-06] MEDS: FLOVENT 220 MCG INHALER INH ×2 (07:26→07:27)
--- NOTE | 2024-04-06 07:27 | PTCARENOTE ---
pt received from previous rn- able to make out one or two words, remains with garbled speech. pt continuously restless in bed, moving all extremities. remains on precedex, redirection and reorientation provided. bed alarm on and functioning, mitts
on and intact for attempting to remove wires and tubes. fms flushed and intact. murguia draining aj urine. turned and repositioned. oral care provided. afib on monitor, on room air. all safety precautions in place.
--- NOTE | 2024-04-06 07:32 | W.PN.HOSP.TC ---
Addendum entered and electronically signed by Obie Arndt MD 04/06/24 16:27:
Seen and examined by me independently in collaboration with the medical field representative.
Lab data and imaging data reviewed.
Addendum as below :
Remains encephalopathic but more responsive and interactive. Follows commands. Passed swallow test.
Wean Precedex as able. Wean Haldol 2.
Resume antihypertensives/ACEI.
Original Note:
Today's Communication/Plan
-
C/w IV abx per ID, c/t wean sedation as able.
Assessment / Plan
Assessment / Plan
38 year old male
Patient is persistently disoriented and attempting to remove restraints, get out bed, take out his Muniz/IVs and leave.
#Persistent Afib - Cards following. Titration of IV lopressor per cards. Will consider transitioning to PO after he is more awake/cleared by speech.
#Persistent Fevers
#Tracheitis
- Tracheal aspirate cx growing MSSA- c/w Cefazolin (ID Following)
#Vtach Cardiac Arrest w/ CPR
- CXR did not show any osseous abnormalities. TTM not initiated due to UGI bleed. Weaned off pressure supports. Head CT showed atrophy and EEG showed diffuse cortical dysfunction without focal abnormality and no seizure activity.
- Extubated. on BiPAP at night for sleep apnea, NC during the day; to wean sedation per branch service associate team.
- On Haldol and Seroquel, will try to wean these in an attempt to assess mental status for downgrade/discharge as patient is otherwise medically stable.
#Sepsis, likely secondary to COVID-19 Infection (resolved)
- Febrile for several days without white count, initially thought propofol rxn vs. bacterial infection, however repeat covid test on 03/28/24 positive. Hypothermic 96.6 F, tachycardic 102, source of infection COVID 19.
- stopped zosyn. s/p x1 dose decadron & 5d Remdesivir
#Alcohol Use Disorder w/ possible withdrawal seizure
- MSAS protocol. Thiamine and Folic acid, Ativan per protocol. Finished phenobarb taper. Should be out of DT window as patient has been in hospital >5d
#HFrEF - Echo showing EF of 30-35% with global hypokinesis w/ small pericardial effusion. C/w lasix 40mg QD. (Cardiology Following)
#Superficial Venous Thrombus - swelling in L arm near peripheral line, US confirmed L basilic vein thrombosis. Line removed. Will observe.
#Upper GI Bleed w/ Epistaxis
#Acute blood loss anemia (resolved)
- S/p 1u pRBCs. s/p TXA & cauterization for epistaxis. No signs of active bleeding on exam. Nasal packing removed. Will continue to monitor H&H. Transfuse if hgb <7.
- c/w IV protonix per GI.
#Elevated Glucose - was on LDISS. Sugars have been wnl. D/c LDISS for now.
#Hyponatremia (resolved) - Off fluids. Assess volume status and replete as needed.
#Hyperbilirubinemia (resolved) - possible component of hemolysis vs. Gilbert's Disease. Resolved now.
#Transaminitis, likely alcoholic fatty liver, possible compounding shock liver (resolved) - Elevated AST/ALT on admission 2:1. history of alcohol use and obesity, possible chronic elevation from fatty liver vs. shock liver. AST/ALT normalized. Will
continue to monitor.
#Lactic Acidemia (resolved) - was elevated immediately post cardiac arrest, has come back down. Blood gas showed metabolic acidosis without respiratory compensation; now normal pH.
#Elevated troponins (resolved)- peaked, likely secondary to cardiac arrest.
#Possible Aspiration Pneumonia, seen on admission (resolved as of 03/28/24)
- Blood cx 03/27 NGTD x 48hrs, sputum cx showing usual yvette. COVID/Flu on admission negative. Completed IV Abx through 03/28.
#Asthma - per mother at bedside patient has been using his inhaler more frequently for night time shortness of breath. 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 sleep apnea vs. worsening Asthma, however history uncertain. Will continue to observe.
patient currently intubated, will reassess when medically stable.
#Bipolar Disorder, uncertain - patient's mother states he was on Lexapro but stopped on his own due to weight gain. Presently patient is sedated, can consider psych consult in the future depending on patient status.
Diet - NPO
DVT Ppx - SCDs
GI Ppx - Protonix 40 BID IV
Code Status - Full Code
Anticipated Discharge: > 48 hours
Subjective/Interval History
-
No acute events overnight, still on precedex. Patient is squirming, agitated, and trying to convince me to take the restraints off so he can leave because we 'can't fix him'. He is oriented to person, but not to place or time.
Objective Data
-
Labs:
Laboratory Results
04/06/24
04:30
WBC 7.8
Hgb 8.6 L
Hct 26.8 L
Plt Count 412 H
Sodium 137
Potassium 3.8
Chloride 101
Carbon Dioxide 28
BUN 14
Creatinine 0.5 L
Glucose 96
Calcium 8.6
Total Bilirubin 1.2
AST 47
ALT 19
Alkaline Phosphatase 154 H
Vital Signs:
Vital Signs
Temp Pulse Resp BP Pulse Ox
99.5 F 108 20 174/103 96
04/06/24 07:22 04/06/24 07:27 04/06/24 07:27 04/06/24 06:07 04/06/24 07:27
I&O
04/05/24 04/06/24 04/07/24
06:59 06:59 06:59
Intake Total 688.0 / 715.0 614.0 / 637.7 73.7 / 73.7
Output Total 4125 / 4175 4905 / 5005 100 / 100
Balance -3437.0 / -3460.0 -4291.0 / -4367.3 -26.3 / -26.3
Review of Systems
-
History Source: Patient
Constitutional: Denies Fever or Chills
Respiratory: Denies Trouble Breathing
Cardiac: Denies Chest Pain
Abdomen/GI: Denies Abdominal Pain
Genitourinary: Reports No Symptoms
Musculoskeletal: Denies Joint Pain or Muscle Pain
Neuro: Denies Headache
Physical Exam
-
General: Well Developed, Well Nourished and Obese
HEENT: Normocephalic, Atraumatic, Moist Mucous Membranes, Anicteric, [place] Conjunctivae, PERRLA, Nose Appears Normal and Ears Appear Normal
Respiratory: Clear to Auscultation; Negative Wheezes
Cardiac: S1/S2, Irregular Rhythm and Tachycardic; Negative Murmur
Breast: N/A
GI: Soft, Nontender and Normal Bowel Sounds
Rectal: Brown
Genito-urinary: Clear Urine and Muniz
Musculoskeletal: No Clubbing, No Cyanosis and No Edema
Skin: Warm, Dry and IV Access / Catheter Site
Neuro: Awake and Alert
--- NOTE | 2024-04-06 08:50 | PTOTSP ---
Speech Language Pathology
Pt seen for clinical bedside swallow evaluation. P.O. trials of puree, regular solids, and thin liquids provided. Pt frequently spitting trials across room, thinking he was supposed to be doing this. Verbal cueing not effective. Minimal
mastication of regular solids. Provided liquid wash, and pt spit out liquid and cracker. Pt did initiate swallow with thin liquids at times and with puree consistently. No oral difficulty or over pharyngeal difficulty with puree or thin liquids.
Cognition is currently main barrier to P.O. intake.
Recommend:
(1) Initiate IDDSI Level 4 (Puree) and thin liquids
(2) Aspiration precautions: sit upright, slow rate, single sips, full supervision with assist as needed
(3) Meds as tolerated (cognition will likely be barrier)
(4) SOAP DRIER TENDER to continue to follow
[2024-04-06] MEDS: SEROQUEL 100 MG PO ×2 (09:49→19:35)
--- NOTE | 2024-04-06 09:51 | PTCARENOTE ---
murguia removed due to void by 1550. 30 condom cath placed. precedex gtt off, Dr. Conde aware. pt seen by speech therapy- see new diet order.
--- NOTE | 2024-04-06 10:10 | PTCARENOTE ---
pt given tylenol for left leg pain, remains with good pulses.
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
--- NOTE | 2024-04-06 10:36 | W.PN.ID1 ---
Date of Service
Date of Service: April 06, 2024
Today's Communication
Continue cefazolin 2 gm iv q8 hours (d5 of 7)
Assessment / Plan
# Recurrence of fever 04/01 - resolved
# Suspect tracheitis with MSSA
# s/p VDRF: extubated
- Repeat bcx neg to date
- UA neg
- 04/01 CXR: no pneumonia
- Sputum: MSSA
- c/w cefazolin 2 gm iv q8 hours (d5 of 7)
# COVID infection
- 03/28/24 COVID ag positive
- Unvaccinated
- s/p Remdesivir x 5d, completed 04/02
- Continue COVID isolation x10 days; dc isolation 04/08/24.
# s/p UGI bleed/hematemesis
# Epistaxis - packing removed 03/29
# Alcohol withdrawal
# s/p PEA cardiac arrest
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
Afib on Eliquis
HTN
HFrEF
anxiety
bipolar disorder
Substance abuse in the past
ETOH abuse
Robotic asst lap LACY umbilical/ventral hernia repair w mesh (04/18/2022)
Chief Complaint
-: Pneumonia and Other (covid, tracheitis)
Subjective / Review of Systems
Pt mumbling.
Vital Signs / Physical Exam
Vital Signs
Vital Signs
Temp Pulse Resp BP Pulse Ox
100 F 118 27 174/114 97
04/06/24 09:54 04/06/24 09:00 04/06/24 09:00 04/06/24 09:00 04/06/24 09:00
Physical Exam
Constitutional: Acutely Ill
Eyes: Sclera Anicteric
Pulmonary: Clear (anteriorly)
Gastrointestinal: Soft, Non Tender, Non Distended and Normal Bowel Sounds
Extremities: Negative Edema
Neurological: Awake
Psychological: Confused
Objective Data
Lab Data
Lab Results
04/06/24 04:30
04/06/24 04:30
PT 15.9 Sec (11.4-14.6) H 03/25/24 04:16
INR 1.24 03/25/24 04:16
APTT 26.3 Sec (23.4-35.0) 03/24/24 03:19
Estimated Creat Clear > 125 ml/min 04/06/24 04:30
Lactic Acid 1.1 mmol/L (0.7-2.0) 03/24/24 09:25
Total Bilirubin 1.2 mg/dl (0.2-1.3) 04/06/24 04:30
AST 47 U/L (17-59) 04/06/24 04:30
ALT 19 U/L (0-50) 04/06/24 04:30
Alkaline Phosphatase 154 U/L (38-126) H 04/06/24 04:30
Most recent labs reviewed.
Micro Results:
04/01/24 11:04 Blood Culture - Preliminary
Blood/Venous No Growth in 4 days- Final report to follow
04/01/24 11:02 Respiratory Culture - Final
Tracheal Aspirate S aureus-Methicillin Sensitive
Gram Stain - Final
04/01/24 11:22 Influenza Types A & B (TAYE) - Final
Nasal Swab Negative for Influenza A & B, NAAT
Negative results must be combined with clinical observations
and patient history.
Nucleic Acid Amplification test (NAAT)performed on the
[employer] eto platform.
03/27/24 09:01 Blood Culture - Final
Blood/Venous No Growth - Final Report
03/27/24 09:01 Blood Culture - Final
Blood/Venous No Growth - Final Report
03/27/24 17:30 Respiratory Culture - Final
Sputum Usual Respiratory Michelle
Gram Stain - Final
03/28/24 15:21 Influenza Types A & B (TAYE) - Final
Nasal Swab Negative for Influenza A & B, NAAT
Negative results must be combined with clinical observations
and patient history.
Nucleic Acid Amplification test (NAAT)performed on the
[employer] eto platform.
03/25/24 13:46 Respiratory Culture - Final
Endotracheal Usual Respiratory Michelle
Gram Stain - Final
03/26/24 03:45 Legionella Urinary Antigen - Final
Urine Negative for Legionella pneumophila Serogroup 1 antigen.
A negative result does not rule out the possiblity of
Legionella infection due to other serogroups or species of
Legionella. Clinical correlation is recommended.
Streptococcus pneumoniae Antigen (M - Final
Negative for Streptococcus pneumoniae antigen.
A negative result does not exclude infection with
Streptococcus pneumoniae. Clinical correlation is
recommended.
03/24/24 17:54 Legionella Urinary Antigen - Final
Urine Negative for Legionella pneumophila Serogroup 1 antigen.
A negative result does not rule out the possiblity of
Legionella infection due to other serogroups or species of
Legionella. Clinical correlation is recommended.
Streptococcus pneumoniae Antigen (M - Final
Negative for Streptococcus pneumoniae antigen.
A negative result does not exclude infection with
Streptococcus pneumoniae. Clinical correlation is
recommended.
04/02/24 peripheral US: no DVT BLE
04/01/24 CXR: No radiographically demonstrable pneumonia.
03/31/24 CXR: Resolved CHF versus acute pulmonary edema in the interval since prior study.
03/29/24 Periph Vasc US: Occlusive thrombus formation in the left basilic vein
03/28/24 CXR: Mild to moderate CHF, slightly progressed. Small right and [id number] left pleural effusions with associated atelectasis and/or pneumonia, progressed.
03/27/24 CXR: Moderate cardiomegaly. Mild pulmonary edema. Suspected small bilateral pleural effusions. Left lower lobe airspace disease may also be present.
03/27/24 AXR: Nonspecific bowel gas pattern without signs of obstruction.
03/24/24 CT a/p: Moderate bibasilar consolidation. This may represent atelectasis or pneumonia. Bilateral lower lobe, lingular and right upper lobe atelectasis versus scarring. Small pericardial effusion. Findings suggesting mild volume overload or
third spacing.
[2024-04-06] MEDS: ZESTRIL 20 MG PO ×2 (10:41→19:35)
[2024-04-06] MEDS: LOPRESSOR 5 MG IV (10:42)
[2024-04-06] MEDS: LOPRESSOR 100 MG PO (10:42)
--- NOTE | 2024-04-06 11:07 | PTCARENOTE ---
plan of care discussed in rounds- HR in 160s per Dr. Allen give po lopressor and iv, see mar. pt tolerating po intake, mother updated. assessment unchanged further
[2024-04-06] MEDS: DUONEB 3 ML INH (12:05)
[2024-04-06] MEDS: CARDIZEM 5 MG IV (12:34)
[2024-04-06] MEDS: CARDIZEM 125 IV ×2 (12:34→17:59)
--- NOTE | 2024-04-06 12:45 | PTCARENOTE ---
pt in rapid afib rate 150s to 170s, Dr. Lobo and Dr. Conde at bedside, pt bp stable, cardiziem bolus and gtt started as per order. gtt started at 10mg an hour per Dr. Lobo. Per Dr. Lobo no ekg at this time.
--- NOTE | 2024-04-06 13:07 | W.PN.INTV ---
Today's Communication / Plan
Recommendations
Transition Haldol to as needed
Seroquel restarted
Advance diet-cleared by speech
Continue cefazolin
Heart rate control: Cardizem. Restart heparin drip high risk of a stroke
Continue IV diuretics
Restart nebulizers Xopenex/Atrovent and budesonide
Precedex has been discontinued
Assessment
-
Assessment: 38-year-old male non-smoker with a past medical history of persistent A-fib on Eliquis, bipolar affective disorder, asthma, and hypertension who presented with vomiting blood 1 day prior to arrival with dark stools as well as a
nosebleed. He has been having fatigue, shortness of breath and confusion with chest pain. He is normally on Eliquis but he has been holding it for few days due to his bleeding. He does follow-up with cardiology with last visit on 02/17/[address] Phillips. He has a history of nonischemic cardiomyopathy with prior EF of 20-25% with global hypokinesis from echo in December 2023. He was discussing getting an ablation for his A-fib. He has a history of cardioversion x 2 with failure to
restore into sinus rhythm. Also it has been difficult to choose an antiarrhythmic drug in the setting of his lithium drug use with risk of QT prolongation. In the ER he told the doctor he has been having a bloody nose which started on the day of
ER arrival, and has been vomiting bright red blood with dark tarry stools for 1 week. Last dose of Eliquis was on Friday (03/21/2024). In the ER he was afebrile to 97.1 �F, pulse rate 97, breathing at 20 breaths/minute, BP 129/83 and saturating 98%
on room air. Initial labs showed Hb 8.9, platelet count 115, sodium 123, chloride 87, BUN 33, serum osmolarity 302, and urinalysis negative for signs of UTI. Initial CXR showed suspected small right pleural effusion with possible pneumonia in the
right middle lobe. He was initially admitted to the IMU for a GI bleed with epistaxis. Overnight he was agitated and required Precedex drip so was transferred to the ICU, and developed a cardiac arrest while trying to get up out of bed. He was
labeled DNR however when the ICU ALFALFA DEHYDRATOR OPERATOR call the family this was reversed, and CPR/ACLS was initiated. He was given an amp of epinephrine and pulse was regained and then he became bradycardic and lost pulse again. CPR resumed and given 2 A of epi and
patient was intubated. ROSC regained. Due to his prearrest seizure-like activity, neurology was called and empiric Keppra was given. TTM was not started given his acute upper GI bleed and epistaxis. He has continued to be managed in the ICU and
strapping machine operator services consulted for additional management/recommendations.
Chronic conditions SHIPPING SPECIALIST: Asthma, hypertension, bipolar 1 disorder, A-fib
Impression:
#Hemorrhagic shock - shock state now resolved
#In-hospital cardiac arrest with preceding seizure-like activity (withdrawal seizure vs myoclonic jerks)
#Acute blood loss anemia due to reported epistaxis and UGIB with hematemesis
#Acute respiratory failure with hypoxia now on mechanical ventilation (intubated 03/24/2024)
Extubated 04/03/2024
#RUL + bilateral lower lobe pneumonia (confirmed on CT Chest from 03/24/2024)
#Acute thrombocytopenia
#Alcoholism with use of alcohol use drinking vodka daily as well as wine
#Suspected alcohol withdrawal seizure
#History of anxiety
#Metabolic acidosis with increased anion gap + respiratory acidosis - acidosis now resolved
#Lactic acidosis � now resolved
#Hypochloremic, hyponatremia � now resolved
#Hyperglycemia � now resolved
#Transaminitis with hyperbilirubinemia
#Elevated troponin likely due to cardiac arrest
#Chronic HFrEF with RV dysfunction seen on TTE from 03/24/2024
Plan/recommendations:
-
Extubated 04/03
Off supplemental oxygen
Main issue at the moment is his poor mental status-delirium.
-
Unfortunately mental status/agitation remains an issue-restless/agitated at times.
Patient with significant intermittent agitation
Head CT without acute findings
Patient with episode of PEA,?seizure activity
Neurology evaluated patient, EEG without evidence of seizures
Continue with folic acid, thiamine
History of alcohol abuse noted, last drink 03/22
-
Haldol started 04/05/2024 at least 3 doses. Mental status slightly improved from 04/06/2024. Will start as needed.
Seroquel restarted as the patient was cleared for diet. 04/06/2024
Follow QTc
Off Precedex
-
Systolic heart failure/atrial fibrillation
Chest x-ray without infiltrates 04/01/2024
proBNP 4710
Echocardiogram 03/24/2024: Ejection fraction 30 to 35%. Global hypokinesis. Mild enlarged right ventricular size with reduced right ventricular systolic function. Moderate left atrial dilatation with mild right atrial dilatation. No significant
valvular abnormalities. Small pericardial effusion
Negative fluid status continues.
Continue IV Lasix
Follow renal function electrolytes eventually restart anticoagulation.
Rapid atrial fibrillation since this morning 04/06/2024: Did not respond to IV beta-blockers. Cardizem drip started 04/06/2024, 5 mg IV bolus given. Still remains tachycardic but hypertensive.
Discussed with cardiology okay to continue Cardizem for now.
At this point due to the lack of further epistaxis or GI bleed-high risk of a stroke with underlying atrial fibrillation and systolic heart failure start heparin drip with close monitoring. Follow PTT
Will give 10 mg of labetalol as he is hypertensive. Clonidine may be an option in this case as well.
Cardiology following-Case discussed with Dr. Lobo to for 2024
-
Lung exam with intermittent rhonchi. Intermittent wheezing at times.
Continue with BiPAP as needed and nightly
Airway clearance measures
Out of bed to chair as able, PT/OT
Start nebulizer therapy 3 times a day Xopenex/Atrovent. Start budesonide.
No longer in isolation.
-
Patient presented with bloody emesis, dark stool
Currently n.p.o.-Dobbhoff tube was pulled once patient was extubated.
Cleared by speech for diet advancement to 06/20/2024.
Hemoglobin is stable. No further bleeding evidence.
Patient had bowel movement 03/29-nonbloody
Abdominal x-ray unremarkable
Abdomen is benign, soft
Restart heparin as above. Follow closely.
ID following
MSSA tracheitis
Continue cefazolin 5/7 days
Remdesivir completed 04/02/2024
Continue to monitor for fevers-intermittent low-grade fevers may be from Precedex.
Decadron discontinued 03/30
-
No significant hypoxia at this time. Will follow
Chest x-ray without findings
-
Eliquis remains on hold, last dose 03/21. Significant epistaxis noted
Required transfusion 03/23
ENT also evaluated patient.
Dopplers negative for DVT
Restart heparin 04/06/2024. High risk of a stroke, high risk of DVT.
-
Hemoglobin stable. Transfuse 1 unit 03/23
Abdominal ultrasound with hepatic infiltration, no evidence of cirrhosis
GI following, last seen 03/25, signed off
Recommended to continue pantoprazole twice daily
EGD was not pursued
Hold bowel regimen, now with loose stool
GI prophylaxis: On pantoprazole
DVT prophylaxis: Restart heparin 04/06/2024-high risk of stroke. Discontinue Lovenox prophylactic
Diet will be advanced 04/06/2024.
Aspiration precaution
Critical care statement: A total of 41 minutes of critical care time was provided for this patient today. This includes management of unstable vital signs, evaluation of the patient at bedside, reviewing the patient's pertinent medical records
including radiographs, microbiology, laboratory evaluations, and discussion with primary team, consultants, pharmacy, nutrition, physical therapy, case management, charge nurse, critical care nursing, and respiratory therapy.
Data:
CXR 03/24/2024:
New mild right upper lobe airspace disease concerning for developing pneumonia.
Possible developing pneumonia in the right costophrenic angle versus atelectasis. Progressed. Mild.
Tiny right pleural effusion. Progressed.
Cardiomegaly. Stable.
CXR 03/27/2024:
1. Moderate cardiomegaly. Mild pulmonary edema.
2. Suspected small bilateral pleural effusions. Left lower lobe airspace disease may also be present.
CXR 03/28/2024: Mild to moderate CHF, slightly progressed. Small right and [id number] left pleural effusions with associated atelectasis and/or pneumonia, progressed.
CT chest/abdomen/pelvis without contrast 03/24/2024:
Moderate bibasilar consolidation. This may represent atelectasis or pneumonia.
Bilateral lower lobe, lingular and right upper lobe atelectasis versus scarring.
Small pericardial effusion.
Findings suggesting mild volume overload or third spacing.
Minimal diverticulosis.
Subjective Dataa
Subjective Data
Date of Service:
Date of Service: April 06, 2024
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
Subjective:
Remains intermittently confused
Now following commands
Moving 4 extremities
Trying to get out of bed
Objective Data
Data Reviewed
Vital Signs / I&O / Oxygen:
Vital Signs
Temp Pulse Resp BP Pulse Ox
98.1 F 166 32 141/82 96
04/06/24 11:25 04/06/24 12:34 04/06/24 12:20 04/06/24 12:34 04/06/24 12:05
Intake and Output
04/05/24 04/06/24 04/07/24
06:59 06:59 06:59
Intake Total 688.0 / 715.0 614.0 / 637.7 90.6 / 90.6
Output Total 4125 / 4175 4905 / 5005 2200 / 2200
Balance -3437.0 / -3460.0 -4291.0 / -4367.3 -2109.4 / -2109.4
SaO2 [CPAP/PSV] 100
SaO2 [A/C] 99
SaO2 96
Nasal Cannula flow liters per 2
minute
Physical Exam
General: Comfortable
HEENT: Normocephalic, Anicteric, Other (Thick neck) and Other (ETT in place)
Cardiovascular: S1-S2, Regular Rhythm (Tachycardic), Murmur (n), Rub (n), Peripheral Edema (Trace lower extremity edema bilaterally) and Other (Right upper extremity PICC line)
Respiratory: Wheeze (Mild), Crackles (few), Rhonchi (negative), Non-Labored Respirations and Stridor (n)
GI: Soft, Non Distended, Non Tender and Normal Bowel Sounds
Neurology: Awake, No Motor Deficits (Moving 4 extremities, trying to get out of bed), Other (Follow simple commands) and Other (Somnolent but arousable)
Skin: Warm, Dry, Cyanosis (negative), Jaundice (negative) and Rash (negative)
Labs/Micro/Reports
Lab Data
04/06/24 04:30
04/06/24 04:30
Microbiology
04/01/24 11:04 Blood/Venous Blood Culture - Final
No Growth - Final Report
[2024-04-06] MEDS: TRANDATE 10 MG IV (13:11)
[2024-04-06] MEDS: ATROVENT NEBULES INH (13:28)
[2024-04-06] MEDS: XOPENEX 1.25 MG INHALANT SOLUTION INH ×2 (13:28→20:23)
[2024-04-06 13:29] LABS: INR 1.14; PT 14.9 Sec (11.4-14.6)
[2024-04-06 13:30] LABS: APTT 31.4 Sec (23.4-35.0)
[2024-04-06] MEDS: HEPARIN 25000 UNITS/250 ML IV (13:53)
[2024-04-06] MEDS: HEPARIN 4000 UNITS IV (13:53)
--- NOTE | 2024-04-06 13:58 | PTCARENOTE ---
labetelol given for heart rate, improvement to 110s-120s- Dr. Conde aware of improvement. heparin gtt started as per order.
--- NOTE | 2024-04-06 14:40 | CM ---
CM following re: discharge planning.
Discussed in rounds, reviewed pt's chart. Per Rounds meeting, pt remains drowsy, lethargic, restless with significant intermittent agitation, following simple commands, continue supportive care.
D/C plan: uncertain at this time and will depend on pt's progress.
CM will follow with discharge plan updates as hospitalization progresses
[2024-04-06] MEDS: TYLENOL 650 MG PO (15:53)
--- NOTE | 2024-04-06 16:40 | PTCARENOTE ---
assessment unchanged. remains on cardizem and heparin gtts. mom at bedside and updated. pt bladder scanned for 320.
[2024-04-06] MEDS: LOPRESSOR 50 MG PO (17:55)
[2024-04-06] MEDS: VITAMIN B1 100 MG PO (19:35)
[2024-04-06] MEDS: PROTONIX 40 MG PO (19:35)
--- NOTE | 2024-04-06 20:00 | PTCARENOTE ---
Received pt via handoff. Pt is awake w/ garbled speech but will follow simple commands and nod appropriately. AFib on the monitor, +2 edema in upper and lower extremities and palpable pulses. Pt is 96% on RA with an occasional productive cough. FMS
is CDI and in place. Pt incontinent of urine. Right DL PICC with Heparin and Cardizem gtt running see flowsheet. R and L mitts on for attempts to remove tubing. Sister at bedside.
[2024-04-06] MEDS: PULMICORT 0.5 MG INH (20:24)
[2024-04-06] MEDS: ATROVENT NEBULES 0.5 MG INH (20:24)
[2024-04-07] VITALS (26 sets, daily range): BP systolic 101–185; BP diastolic 61–104; BMI 36.4
--- NOTE | 2024-04-07 | PTCARENOTE ---
All systems reassessed. Heparin and cardizem gtt running. Pt asleep.
[2024-04-07] MEDS: LOPRESSOR 50 MG PO ×4 (01:08→18:30)
[2024-04-07] MEDS: CARDIZEM 125 IV ×2 (02:03→11:23)
[2024-04-07] MEDS: ANCEF 10 IV ×3 (05:25→19:43)
[2024-04-07] MEDS: ATIVAN 1 MG IV (05:26)
--- NOTE | 2024-04-07 05:31 | PTCARENOTE ---
All systems reassessed. Hygiene performed and labs drawn.
[2024-04-07 06:03] LABS: % Basophils 1.7 % (0-2); % Eosinophils 0.9 % (0-6); % Immature Granulocytes 0.7 % (0-0.5); % Lymphocytes 19.5 % (20.5-51.1); % Monocytes 16.4 % (1.7-9.3); % Neutrophils 60.8 % (42.2-75.2); Absolute Basophils 0.1 10^3/uL (0-0.2); Absolute Eosinophils 0.1 10^3/uL (0-0.7); Absolute Immature Granulocytes 0.1 10^3/uL (0-0.05); Absolute Lymphocytes 1.4 10^3/uL (1.2-3.4); Absolute Monocytes 1.1 10^3/uL (0.1-0.6); Absolute Neutrophils 4.2 10^3/uL (1.4-6.5); Hematocrit 27.1 % (39.0-52.0); Hemoglobin 8.6 g/dL (13.0-18.0); Mean Corp Hgb Conc. 31.7 g/dL (33.0-37.0); Mean Corpuscular Hgb 27.5 pg (27.0-31.0); Mean Corpuscular Volume 86.6 fL (80.0-94.0); Mean Platelet Volume 9.8 fL (7.4-10.4); Nucleated Red Blood Cells % 0 % (-); Platelet Count 416 10^3/uL (130-400); Red Blood Cell Count 3.13 10^6/uL (4.70-6.10); Red Cell Dist. Width 15.7 % (11.5-14.5); White Blood Cell Count 6.9 10^3/uL (4.8-10.8)
[2024-04-07 06:15] LABS: APTT 31.7 Sec (23.4-35.0)
[2024-04-07 06:34] LABS: ALT (SGPT) 21 U/L (0-50); AST (SGOT) 52 U/L (17-59); Albumin 3.5 g/dl (3.5-5.0); Alkaline Phosphatase 172 U/L (38-126); Blood Urea Nitrogen 16 mg/dl (9-20); Calcium 8.3 mg/dl (8.4-10.2); Carbon Dioxide 28 mmol/L (22-30); Chloride 97 mmol/L (98-107); Estimated Creatinine Clearance > 125 ml/min; Glucose 104 mg/dl (70-99); Potassium 3.4 mmol/L (3.5-5.1); Sodium 137 mmol/L (135-145); Total Bilirubin 1.1 mg/dl (0.2-1.3); Total Protein 6.1 g/dl (6.3-8.2); eGFR > 60.00
[2024-04-07] MEDS: XOPENEX 1.25 MG INHALANT SOLUTION INH ×3 (07:11→20:08)
[2024-04-07] MEDS: PULMICORT 0.5 MG INH ×2 (07:11→20:08)
[2024-04-07] MEDS: ATROVENT NEBULES 0.5 MG INH ×3 (07:11→20:08)
--- NOTE | 2024-04-07 08:06 | W.PN.HOSP.TC ---
Today's Communication/Plan
-
Continue to observe MS. Rate control per cardiology.
Assessment / Plan
Assessment / Plan
38 year old male
He is more calm today, however still not quite oriented and able to express himself. Suspect prolonged course of alcohol withdrawal symptoms due to significant EtOH use.
#Persistent Afib - Cards following. Titration of IV lopressor per cards. Will consider transitioning to PO after he is more awake/cleared by speech.
#Persistent Fevers
#Tracheitis
- Tracheal aspirate cx growing MSSA- c/w Cefazolin (ID Following)
#Vtach Cardiac Arrest w/ CPR
- CXR did not show any osseous abnormalities. TTM not initiated due to UGI bleed. Weaned off pressure supports. Head CT showed atrophy and EEG showed diffuse cortical dysfunction without focal abnormality and no seizure activity.
- Extubated. on BiPAP at night for sleep apnea, NC during the day; to wean sedation per autism tutor team.
- On Haldol prn and Seroquel
#Sepsis, likely secondary to COVID-19 Infection (resolved)
- Febrile for several days without white count, initially thought propofol rxn vs. bacterial infection, however repeat covid test on 03/28/24 positive. Hypothermic 96.6 F, tachycardic 102, source of infection COVID 19.
- stopped zosyn. s/p x1 dose decadron & 5d Remdesivir
#Alcohol Use Disorder w/ possible withdrawal seizure
- MSAS protocol. Thiamine and Folic acid, Ativan per protocol. Finished phenobarb taper. Should be out of DT window as patient has been in hospital >5d
#HFrEF - Echo showing EF of 30-35% with global hypokinesis w/ small pericardial effusion. C/w IV lasix 40mg QD. (Cardiology Following)
#Superficial Venous Thrombus - swelling in L arm near peripheral line, US confirmed L basilic vein thrombosis. Line removed. Will observe.
#Upper GI Bleed w/ Epistaxis
#Acute blood loss anemia (resolved)
- S/p 1u pRBCs. s/p TXA & cauterization for epistaxis. No signs of active bleeding on exam. Nasal packing removed. Will continue to monitor H&H. Transfuse if hgb <7.
- c/w IV protonix per GI.
#Elevated Glucose - was on LDISS. Sugars have been wnl. D/c LDISS for now.
#Hyponatremia (resolved) - Off fluids. Assess volume status and replete as needed.
#Hyperbilirubinemia (resolved) - possible component of hemolysis vs. Gilbert's Disease. Resolved now.
#Transaminitis, likely alcoholic fatty liver, possible compounding shock liver (resolved) - Elevated AST/ALT on admission 2:1. history of alcohol use and obesity, possible chronic elevation from fatty liver vs. shock liver. AST/ALT normalized. Will
continue to monitor.
#Lactic Acidemia (resolved) - was elevated immediately post cardiac arrest, has come back down. Blood gas showed metabolic acidosis without respiratory compensation; now normal pH.
#Elevated troponins (resolved)- peaked, likely secondary to cardiac arrest.
#Possible Aspiration Pneumonia, seen on admission (resolved as of 03/28/24)
- Blood cx 03/27 NGTD x 48hrs, sputum cx showing usual yvette. COVID/Flu on admission negative. Completed IV Abx through 03/28.
#Asthma - per mother at bedside patient has been using his inhaler more frequently for night time shortness of breath. 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 sleep apnea vs. worsening Asthma, however history uncertain. Will continue to observe.
patient currently intubated, will reassess when medically stable.
#Bipolar Disorder, uncertain - patient's mother states he was on Lexapro but stopped on his own due to weight gain. Presently patient is sedated, can consider psych consult in the future depending on patient status.
Diet - NPO
DVT Ppx - SCDs
GI Ppx - Protonix 40 BID IV
Code Status - Full Code
Anticipated Discharge: > 48 hours
Subjective/Interval History
-
Slightly more responsive this morning however is still having trouble vocalizing words. Can say simple words like yes and no, but when trying to express more complicated speech he ends up mumbling.
Objective Data
-
Labs:
Laboratory Results
04/06/24 04/07/24 04/07/24
20:26 05:37 12:30
WBC 6.9
Hgb 8.6 L
Hct 27.1 L
Plt Count 416 H
APTT 34.0 31.7 Pending
Sodium 137
Potassium 3.4 L
Chloride 97 L
Carbon Dioxide 28
BUN 16
Creatinine 0.6 L
Glucose 104 H
Calcium 8.3 L
Total Bilirubin 1.1
AST 52
ALT 21
Alkaline Phosphatase 172 H
Vital Signs:
Vital Signs
Temp Pulse Resp BP Pulse Ox
97.7 F 94 20 161/93 99
04/07/24 08:02 04/07/24 07:16 04/07/24 07:16 04/07/24 05:25 04/07/24 07:16
I&O
04/06/24 04/07/24 04/08/24
06:59 06:59 06:59
Intake Total 614.0 / 637.7 521.6 / 521.6
Output Total 4905 / 5005 2200 / 2200
Balance -4291.0 / -4367.3 -1678.4 / -1678.4
Review of Systems
-
Unable to obtain full review of systems at this time due to: Other (Limited by mental status)
History Source: Patient
Constitutional: Denies Fever or Chills
EENT: Denies Sore Throat or Blurry Vision
Respiratory: Denies Trouble Breathing
Cardiac: Denies Chest Pain
Abdomen/GI: Denies Abdominal Pain
Musculoskeletal: Denies Joint Pain or Muscle Pain
Neuro: Denies Headache
Physical Exam
-
General: Well Developed, Well Nourished, No Apparent Distress, Appears Chronically Ill and Obese
HEENT: Normocephalic, Atraumatic, Moist Mucous Membranes, Anicteric, [place] Conjunctivae, No Ptosis, PERRLA, Nose Appears Normal and Ears Appear Normal
Respiratory: Clear to Auscultation; Negative Wheezes, Rales or Rhonchi
Cardiac: S1/S2, Irregular Rhythm and Tachycardic; Negative Murmur
Breast: N/A
GI: Soft, Nontender, Nondistended and Normal Bowel Sounds
Rectal: Brown
Musculoskeletal: No Clubbing, No Cyanosis and No Edema
Skin: Warm, Dry and IV Access / Catheter Site
Neuro: Awake and Other (Slow, garbled speech. Occasionally his words are discernable, clear and purposeful.)
[2024-04-07] MEDS: ZESTRIL 20 MG PO ×2 (08:56→19:43)
[2024-04-07] MEDS: VITAMIN B1 100 MG PO ×2 (08:56→19:43)
[2024-04-07] MEDS: FOLVITE 1 MG PO (08:56)
[2024-04-07] MEDS: PROTONIX PO ×2 (08:57→09:30)
[2024-04-07] MEDS: SEROQUEL 100 MG PO ×2 (08:57→19:43)
[2024-04-07] MEDS: LASIX 40 MG IV (08:57)
[2024-04-07] MEDS: FLUSH (NSS) 2 FLUSH IV ×2 (08:57→11:25)
--- NOTE | 2024-04-07 09:15 | PTCARENOTE ---
Rec'd pt at 0800 sleeping. Does awaken to verbal stimuli and is more alert. Overall is calm but then does have periods where he is a little more restless. Speech-will say one or two clearer words but then speech becomes more garbled and not as
easily understandable. JAY but arms are weak-that being said but will try to reach at tubes and wires. Bilat soft wrist restraints in place for pt safety. Will follow some simple commands. Skin is pk wm and dry. L abd with some reddish/purple
bruising. Respirs overall are non-labored. Pt taken off of Bipap at 0800 and currently on RA with sats of 97%. BS are sl decreased and coarse. Monitor AFib with rates of [address] up into the 180's with exertion or trying to urinate. The
higher rate is not sustained for long periods of time overall. Pt remains on IV Cardizem at 15 mg/hr and Heparin at 1400 units/hr. + pulses. VS as documented. +1 generalized anasarca. Abd is obese, round, soft with + BS. FMS In place for loose brown
stool. Irrigated without diff. Pt is on a pureed diet- no difficulty noted with swallowing but appetite is limited at best. Pt takes po meds ok as long as they are crushed in applesauce but whole pills he tends to just roll around in his mouth
before spitting them out. Incont of a saturated amt of aj urine. Will try a condom cath. Size 35 available and placed on pt. IV's infusing via R upper arm DL picc. Site wnl. Pt turned and repositioned. Skin and mouth care given. Pt made aware of
plan of care.
[2024-04-07] MEDS: PREVACID 30 MG TUBE ×2 (09:32→19:43)
[2024-04-07] MEDS: KCL ELIXIR 40 MEQ PO (09:32)
--- NOTE | 2024-04-07 09:35 | PTCARENOTE ---
KCL 40 meq Elixer given. (pt unable to swallow the PO KCL tabs)
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
[2024-04-07] MEDS: LOPRESSOR 5 MG IV (11:25)
[2024-04-07] MEDS: HEPARIN 25000 UNITS/250 ML IV (11:27)
--- NOTE | 2024-04-07 11:36 | PTCARENOTE ---
Resting- not really agitated but with any exertion- mostly trying to urinate HR has gone up into the 180-190 range then back down to the 115-135 range. Medicated at 1125 with Lopressor 5 mg IV for HR 146
--- NOTE | 2024-04-07 12:10 | W.PN.ID1 ---
Date of Service
Date of Service: April 07, 2024
Today's Communication
continue cefazolin.
Assessment / Plan
# Suspect tracheitis with MSSA
# s/p VDRF: extubated
- Repeat bcx neg to date
- UA neg
- 04/01 CXR: no pneumonia
- Sputum: MSSA
- Low grade temp x 1 yesterday.
- c/w cefazolin 2 gm iv q8 hours (d6 of 7)
# COVID infection
- 03/28/24 COVID ag positive
- Unvaccinated
- s/p Remdesivir x 5d, completed 04/02
- Continue COVID isolation x10 days; dc isolation 04/08/24.
# s/p UGI bleed/hematemesis
# Epistaxis - packing removed 03/29
# Alcohol withdrawal
# s/p PEA cardiac arrest
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
Afib on Eliquis
HTN
HFrEF
anxiety
bipolar disorder
Substance abuse in the past
ETOH abuse
Robotic asst lap LACY umbilical/ventral hernia repair w mesh (04/18/2022)
Chief Complaint
-: Pneumonia and Other (covid, tracheitis)
Vital Signs / Physical Exam
Vital Signs
Vital Signs
Temp Pulse Resp BP Pulse Ox
99.2 F 146 23 120/77 98
04/07/24 11:47 04/07/24 11:25 04/07/24 10:00 04/07/24 11:25 04/07/24 10:00
Selected Entries
04/06/24
16:02
Temp 100.6 F H
Physical Exam
Constitutional: Comfortable
Pulmonary: Clear (anteriorly)
Gastrointestinal: Soft, Non Tender and Non Distended
Extremities: Negative Edema
Neurological: Awake
Objective Data
Lab Data
Lab Results
04/07/24 05:37
04/07/24 05:37
PT 14.9 Sec (11.4-14.6) H 04/06/24 13:07
INR 1.14 04/06/24 13:07
APTT 31.7 Sec (23.4-35.0) 04/07/24 05:37
Estimated Creat Clear > 125 ml/min 04/07/24 05:37
Lactic Acid 1.1 mmol/L (0.7-2.0) 03/24/24 09:25
Total Bilirubin 1.1 mg/dl (0.2-1.3) 04/07/24 05:37
AST 52 U/L (17-59) 04/07/24 05:37
ALT 21 U/L (0-50) 04/07/24 05:37
Alkaline Phosphatase 172 U/L (38-126) H 04/07/24 05:37
Most recent labs reviewed.
Micro Results:
04/01/24 11:04 Blood Culture - Final
Blood/Venous No Growth - Final Report
04/01/24 11:02 Respiratory Culture - Final
Tracheal Aspirate S aureus-Methicillin Sensitive
Gram Stain - Final
04/01/24 11:22 Influenza Types A & B (TAYE) - Final
Nasal Swab Negative for Influenza A & B, NAAT
Negative results must be combined with clinical observations
and patient history.
Nucleic Acid Amplification test (NAAT)performed on the
[employer] platform.
03/27/24 09:01 Blood Culture - Final
Blood/Venous No Growth - Final Report
03/27/24 09:01 Blood Culture - Final
Blood/Venous No Growth - Final Report
03/27/24 17:30 Respiratory Culture - Final
Sputum Usual Respiratory Michelle
Gram Stain - Final
03/28/24 15:21 Influenza Types A & B (TAYE) - Final
Nasal Swab Negative for Influenza A & B, NAAT
Negative results must be combined with clinical observations
and patient history.
Nucleic Acid Amplification test (NAAT)performed on the
[employer] platform.
03/25/24 13:46 Respiratory Culture - Final
Endotracheal Usual Respiratory Michelle
Gram Stain - Final
03/26/24 03:45 Legionella Urinary Antigen - Final
Urine Negative for Legionella pneumophila Serogroup 1 antigen.
A negative result does not rule out the possiblity of
Legionella infection due to other serogroups or species of
Legionella. Clinical correlation is recommended.
Streptococcus pneumoniae Antigen (M - Final
Negative for Streptococcus pneumoniae antigen.
A negative result does not exclude infection with
Streptococcus pneumoniae. Clinical correlation is
recommended.
03/24/24 17:54 Legionella Urinary Antigen - Final
Urine Negative for Legionella pneumophila Serogroup 1 antigen.
A negative result does not rule out the possiblity of
Legionella infection due to other serogroups or species of
Legionella. Clinical correlation is recommended.
Streptococcus pneumoniae Antigen (M - Final
Negative for Streptococcus pneumoniae antigen.
A negative result does not exclude infection with
Streptococcus pneumoniae. Clinical correlation is
recommended.
04/02/24 peripheral US: no DVT BLE
04/01/24 CXR: No radiographically demonstrable pneumonia.
03/31/24 CXR: Resolved CHF versus acute pulmonary edema in the interval since prior study.
03/29/24 Periph Vasc US: Occlusive thrombus formation in the left basilic vein
03/28/24 CXR: Mild to moderate CHF, slightly progressed. Small right and [id number] left pleural effusions with associated atelectasis and/or pneumonia, progressed.
03/27/24 CXR: Moderate cardiomegaly. Mild pulmonary edema. Suspected small bilateral pleural effusions. Left lower lobe airspace disease may also be present.
03/27/24 AXR: Nonspecific bowel gas pattern without signs of obstruction.
03/24/24 CT a/p: Moderate bibasilar consolidation. This may represent atelectasis or pneumonia. Bilateral lower lobe, lingular and right upper lobe atelectasis versus scarring. Small pericardial effusion. Findings suggesting mild volume overload or
third spacing.
[2024-04-07] MEDS: FLUSH (NSS) 1 FLUSH IV (12:45)
[2024-04-07 13:10] LABS: APTT 34.1 Sec (23.4-35.0)
--- NOTE | 2024-04-07 13:10 | PTCARENOTE ---
Overall limited appetite for lunch. No difficulty with swallowing but not much of an appetite even with pureed food brought in by family. Pts mother and sister in to see him. VS as documented. Mostly restful and cooperative although speech is still
garbled with limited coherent conversation. HR better since oral and IV Lopressor- now more in the 100-122 range. Incont around FMS of loose stool. Yudith care given. Turned and repositioned. Soft wrist restraints remain intact for pt safety. ROM
done. pts family at the bedside. PTT sent per protocol
--- NOTE | 2024-04-07 13:47 | CM ---
CM following re: discharge planning.
Discussed in rounds, reviewed pt's chart. Per Rounds meeting, pt remains drowsy, lethargic, restless with significant intermittent agitation, following simple commands, on soft restraints for safety, continue supportive care.
D/C plan: uncertain at this time and will depend on pt's progress.
CM will follow with discharge plan updates as hospitalization progresses
--- NOTE | 2024-04-07 13:53 | W.PN.INTV ---
Today's Communication / Plan
Recommendations
Continue Seroquel
Continue Haldol as needed
Aspiration precautions
Heparin drip
Cardizem drip
Beta-blockers
IV diuretics
Antibiotics for 1 additional day
Incentive spirometry
BiPAP as needed
Hopefully improve enough that we can start mobility.
Assessment
-
Assessment: 38-year-old male non-smoker with a past medical history of persistent A-fib on Eliquis, bipolar affective disorder, asthma, and hypertension who presented with vomiting blood 1 day prior to arrival with dark stools as well as a
nosebleed. He has been having fatigue, shortness of breath and confusion with chest pain. He is normally on Eliquis but he has been holding it for few days due to his bleeding. He does follow-up with cardiology with last visit on 02/17/[address] Phillips[address] He has a history of nonischemic cardiomyopathy with prior EF of 20-25% with global hypokinesis from echo in December 2023. He was discussing getting an ablation for his A-fib. He has a history of cardioversion x 2 with failure to
restore into sinus rhythm. Also it has been difficult to choose an antiarrhythmic drug in the setting of his lithium drug use with risk of QT prolongation. In the ER he told the doctor he has been having a bloody nose which started on the day of
ER arrival, and has been vomiting bright red blood with dark tarry stools for 1 week. Last dose of Eliquis was on Friday (03/21/2024). In the ER he was afebrile to 97.1 �F, pulse rate 97, breathing at 20 breaths/minute, BP 129/83 and saturating 98%
on room air. Initial labs showed Hb 8.9, platelet count 115, sodium 123, chloride 87, BUN 33, serum osmolarity 302, and urinalysis negative for signs of UTI. Initial CXR showed suspected small right pleural effusion with possible pneumonia in the
right middle lobe. He was initially admitted to the IMU for a GI bleed with epistaxis. Overnight he was agitated and required Precedex drip so was transferred to the ICU, and developed a cardiac arrest while trying to get up out of bed. He was
labeled DNR however when the ICU LAWN SERVICE MANAGER call the family this was reversed, and CPR/ACLS was initiated. He was given an amp of epinephrine and pulse was regained and then he became bradycardic and lost pulse again. CPR resumed and given 2 A of epi and
patient was intubated. ROSC regained. Due to his prearrest seizure-like activity, neurology was called and empiric Keppra was given. TTM was not started given his acute upper GI bleed and epistaxis. He has continued to be managed in the ICU and
educational audiologist services consulted for additional management/recommendations.
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
Impression:
#Hemorrhagic shock - shock state now resolved
#In-hospital cardiac arrest with preceding seizure-like activity (withdrawal seizure vs myoclonic jerks)
#Acute blood loss anemia due to reported epistaxis and UGIB with hematemesis
#Acute respiratory failure with hypoxia now on mechanical ventilation (intubated 03/24/2024)
Extubated 04/03/2024
#RUL + bilateral lower lobe pneumonia (confirmed on CT Chest from 03/24/2024)
#Acute thrombocytopenia
#Alcoholism with use of alcohol use drinking vodka daily as well as wine
#Suspected alcohol withdrawal seizure
#History of anxiety
#Metabolic acidosis with increased anion gap + respiratory acidosis - acidosis now resolved
#Lactic acidosis � now resolved
#Hypochloremic, hyponatremia � now resolved
#Hyperglycemia � now resolved
#Transaminitis with hyperbilirubinemia
#Elevated troponin likely due to cardiac arrest
#Chronic HFrEF with RV dysfunction seen on TTE from 03/24/2024
Plan/recommendations:
-
Extubated 04/03
Main issue at the moment is his poor mental status-delirium and atrial fibrillation.
-
Unfortunately mental status/agitation remains an issue-restless/agitated at times.
Patient with significant intermittent agitation
Head CT without acute findings
Patient with episode of PEA,?seizure activity
Neurology evaluated patient, EEG without evidence of seizures
Continue with folic acid, thiamine
History of alcohol abuse noted, last drink 03/22
-
Haldol started 04/05/2024 at least 3 doses. Mental status slightly improved from 04/06/2024.
Seroquel restarted as the patient was cleared for diet. 04/06/2024
Continue Haldol as needed
Follow QTc
Off Precedex
-
Systolic heart failure/atrial fibrillation
Chest x-ray without infiltrates 04/01/2024
proBNP 4710
Echocardiogram 03/24/2024: Ejection fraction 30 to 35%. Global hypokinesis. Mild enlarged right ventricular size with reduced right ventricular systolic function. Moderate left atrial dilatation with mild right atrial dilatation. No significant
valvular abnormalities. Small pericardial effusion
Negative fluid status continues.
Continue IV Lasix
Follow renal function electrolytes eventually restart anticoagulation.
Rapid atrial fibrillation since this morning 04/06/2024: Did not respond to IV beta-blockers.
Cardizem drip started 04/06/2024-defer to cardiology titration. Heart rate remains intermittently high.
Beta-blockers restarted
Heparin restarted, close monitoring of epistaxis and GI bleeding. Discussed with mother risk of a stroke. Follow PTT.
Cardiology continues to follow.
-
Lung exam with intermittent rhonchi. Intermittent wheezing at times.
Continue with BiPAP as needed and nightly
Airway clearance measures
Out of bed to chair as able, PT/OT
Start nebulizer therapy 3 times a day Xopenex/Atrovent.
Continue budesonide.
No longer in isolation.
-
Patient presented with bloody emesis, dark stool-not actively bleeding.
Currently n.p.o.-Dobbhoff tube was pulled once patient was extubated.
Cleared by speech for diet advancement to 06/20/2024.
Hemoglobin is stable. No further bleeding evidence.
Patient had bowel movement 03/29-nonbloody
Abdominal x-ray unremarkable
Abdomen is benign, soft
Restarted heparin as above. Follow closely.
ID following
MSSA tracheitis
Continue cefazolin 6/7 days
Remdesivir completed 04/02/2024
Continue to monitor for fevers-intermittent low-grade fevers may be from Precedex.
Decadron discontinued 03/30
-
No significant hypoxia at this time. Will follow
Chest x-ray without findings
-
Eliquis remains on hold, last dose 03/21. Significant epistaxis noted
Required transfusion 03/23
ENT also evaluated patient.
Dopplers negative for DVT
Restart heparin 04/06/2024. High risk of a stroke, high risk of DVT.
-
Hemoglobin stable. Transfuse 1 unit 03/23
Abdominal ultrasound with hepatic infiltration, no evidence of cirrhosis
GI following, last seen 03/25, signed off
Recommended to continue pantoprazole twice daily
EGD was not pursued
Hold bowel regimen, now with loose stool
GI prophylaxis: On pantoprazole
DVT prophylaxis: Restart heparin 04/06/2024-high risk of stroke. Discontinue Lovenox prophylactic
Diet will be advanced 04/06/2024. Strict aspiration precautions with assistance.
Aspiration precaution
Dr. Conde updated mother at the bedside 04/07/2024. Still patient remains ill but has improved.
Critical care statement: A total of 35 minutes of critical care time was provided for this patient today. This includes management of unstable vital signs, evaluation of the patient at bedside, reviewing the patient's pertinent medical records
including radiographs, microbiology, laboratory evaluations, and discussion with primary team, consultants, pharmacy, nutrition, physical therapy, case management, charge nurse, critical care nursing, and respiratory therapy.
Data:
CXR 03/24/2024:
New mild right upper lobe airspace disease concerning for developing pneumonia.
Possible developing pneumonia in the right costophrenic angle versus atelectasis. Progressed. Mild.
Tiny right pleural effusion. Progressed.
Cardiomegaly. Stable.
CXR 03/27/2024:
1. Moderate cardiomegaly. Mild pulmonary edema.
2. Suspected small bilateral pleural effusions. Left lower lobe airspace disease may also be present.
CXR 03/28/2024: Mild to moderate CHF, slightly progressed. Small right and unqyi-ra-[id number] left pleural effusions with associated atelectasis and/or pneumonia, progressed.
CT chest/abdomen/pelvis without contrast 03/24/2024:
Moderate bibasilar consolidation. This may represent atelectasis or pneumonia.
Bilateral lower lobe, lingular and right upper lobe atelectasis versus scarring.
Small pericardial effusion.
Findings suggesting mild volume overload or third spacing.
Minimal diverticulosis.
Subjective Dataa
Subjective Data
Date of Service:
Date of Service: April 07, 2024
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
Subjective:
Mental status improved but not to baseline.
Intermittently confused. Intermittently agitated.
Not redirectable
Denies chest pain or abdominal pain
Tolerating some food.
Review of Systems
General: Other (Difficult to obtain due to his mental status.)
Objective Data
Data Reviewed
Vital Signs / I&O / Oxygen:
Vital Signs
Temp Pulse Resp BP Pulse Ox
99.2 F 76 20 121/87 97
04/07/24 11:47 04/07/24 13:06 04/07/24 13:06 04/07/24 12:45 04/07/24 13:06
Intake and Output
04/06/24 04/07/24 04/08/24
06:59 06:59 06:59
Intake Total 614.0 / 637.7 521.6 / 550.6 345 / 345
Output Total 4905 / 5005 2200 / 2200
Balance -4291.0 / -4367.3 -1678.4 / -1649.4 345 / 345
SaO2 [CPAP/PSV] 100
SaO2 [A/C] 99
SaO2 97
Nasal Cannula flow liters per 2
minute
Physical Exam
General: Comfortable (At rest)
HEENT: Normocephalic, Anicteric, Other (Thick neck) and Other (ETT in place)
Cardiovascular: S1-S2, Regular Rhythm (Tachycardic), Murmur (n), Rub (n), Peripheral Edema (Trace lower extremity edema bilaterally) and Other (Right upper extremity PICC line)
Respiratory: Wheeze (Mild), Crackles (few), Rhonchi (negative), Non-Labored Respirations and Stridor (n)
GI: Soft, Non Distended, Non Tender and Normal Bowel Sounds
Neurology: Awake, No Motor Deficits (Moving 4 extremities, trying to get out of bed), Other (Follow simple commands) and Other (Intermittently agitated.)
Skin: Warm, Dry, Cyanosis (negative), Jaundice (negative) and Rash (negative)
Labs/Micro/Reports
Lab Data
04/07/24 05:37
04/07/24 05:37
Laboratory Results
04/06/24 04/07/24 04/07/24
20:26 05:37 12:50
APTT 34.0 31.7 34.1
Microbiology
04/01/24 11:04 Blood/Venous Blood Culture - Final
No Growth - Final Report
--- NOTE | 2024-04-07 14:30 | PTCARENOTE ---
Heparin gtt increased to 1600 units/hr based on PTT result of 34.1. Dr. Conde and pharmacy updated.
--- NOTE | 2024-04-07 15:25 | W.PN.UPDATE ---
Addendum entered and electronically signed by Obie Arndt MD 04/07/24 15:31:
Call mother to give updates , left a voicemail for call back.
Original Note:
Update Note
Progress Note Update
Seen and examined by me independently in collaboration with the medical lab specialist.
Lab data and imaging data reviewed.
Addendum as below :
Remains encephalopathic but able to follow commands and more conversive. Off of Precedex. Continue with as needed Haldol and Ativan. Nonfocal on gross exam. No obvious nystagmus or impaired extraocular muscle movements.
Tolerating p.o. meds and small amounts of p.o. intake per RN.
Nontoxic looking. No respiratory distress. On room air.
Went into rapid A-fib currently on IV Cardizem drip which I will continue. Cardiology following.
AC resumed.
Follow in ICU.
DW RN
If no improvement in oral intake will consider NG .
--- NOTE | 2024-04-07 17:00 | PTCARENOTE ---
Overall has been cooperative and resting. Does move arms around and stick is L leg out of the bed but does not try to get oob. Soft mitts remain intact as pt does try to touch stuff. Will still say one or two undertandable words. Could tell me his
birthday and name but then speech continues to be garbled. RA sats are 97%. VS as documented. Over past several hours HR overall has been better- in the 100-120 range. Still Afib. No further leaking from FMS currently. Pt had 50 mls of urine in the
condom cath bag since emptied earlier. Bladder scanned for 720 mls. Tried to have pt void but either didn't understand or couldn't. St. Cathed for 760 mls of aj urine. #30 Condom cath replaced. Pt turned and repositioned. Skin and viki care
given. Heparin gtt at 1600 units/hr and Cardizem remains at 15 mg/hr via R DL picc/
--- NOTE | 2024-04-07 18:42 | PTCARENOTE ---
Repositioned. Incont of some stool around the FMS. Yudith care given. No other changes. Family in and are helping pt with dinner. Did take pills crushed in applesauce without diff.
--- NOTE | 2024-04-07 20:22 | PTCARENOTE ---
Received pt via handoff. Pt is awake w/ garbled speech but will follow simple commands and nod appropriately. AFib on the monitor, +2 edema in upper and lower extremities and palpable pulses. Pt is 97% on RA with an occasional productive cough. FMS
is CDI and in place. Pt incontinent of urine. Right DL PICC with Heparin and Cardizem gtt running see flowsheet. R and L mitts on for attempts to remove tubing. Sisters at bedside.
[2024-04-07 20:24] LABS: APTT 43.2 Sec (23.4-35.0)
[2024-04-08] VITALS (24 sets, daily range): BP systolic 100–164; BP diastolic 68–124; PULSE 88–93; BMI 35.1; BMI 36.0
--- NOTE | 2024-04-08 | PTCARENOTE ---
All systems reassessed, status remains unchanged, heparin and cardizem gtts running see flowhseet.
[2024-04-08] MEDS: LOPRESSOR 50 MG PO ×4 (01:32→17:05)
[2024-04-08] MEDS: HEPARIN 25000 UNITS/250 ML IV (02:24)
[2024-04-08] MEDS: ANCEF 10 IV ×3 (02:24→19:53)
[2024-04-08] MEDS: CARDIZEM 125 IV ×2 (02:24→12:53)
[2024-04-08] MEDS: ATIVAN 1 MG IV (03:43)
[2024-04-08] MEDS: HALDOL 2 MG IV ×2 (03:43→15:48)
[2024-04-08 04:53] LABS: Hematocrit 29.4 % (39.0-52.0); Mean Corp Hgb Conc. 30.6 g/dL (33.0-37.0); Mean Corpuscular Volume 88.3 fL (80.0-94.0); Mean Platelet Volume 9.8 fL (7.4-10.4); Platelet Count 438 10^3/uL (130-400); Red Blood Cell Count 3.33 10^6/uL (4.70-6.10); Red Cell Dist. Width 15.8 % (11.5-14.5); White Blood Cell Count 6.3 10^3/uL (4.8-10.8)
[2024-04-08 04:58] LABS: APTT 34.4 Sec (23.4-35.0)
--- NOTE | 2024-04-08 05:06 | PTCARENOTE ---
All systems reassessed, hygiene performed and labs drawn.
[2024-04-08 05:07] LABS: ALT (SGPT) 31 U/L (0-50); AST (SGOT) 70 U/L (17-59); Albumin 3.6 g/dl (3.5-5.0); Alkaline Phosphatase 179 U/L (38-126); Blood Urea Nitrogen 14 mg/dl (9-20); Calcium 8.5 mg/dl (8.4-10.2); Carbon Dioxide 29 mmol/L (22-30); Chloride 100 mmol/L (98-107); Estimated Creatinine Clearance > 125 ml/min; Glucose 101 mg/dl (70-99); Potassium 3.7 mmol/L (3.5-5.1); Sodium 138 mmol/L (135-145); Total Bilirubin 1.2 mg/dl (0.2-1.3); Total Protein 6.3 g/dl (6.3-8.2); eGFR > 60.00
[2024-04-08 07:03] LABS: % Basophils 2.1 % (0-2); % Eosinophils 1.3 % (0-6); % Immature Granulocytes 0.8 % (0-0.5); % Lymphocytes 27.8 % (20.5-51.1); % Monocytes 16.8 % (1.7-9.3); % Neutrophils 51.2 % (42.2-75.2); Absolute Basophils 0.1 10^3/uL (0-0.2); Absolute Eosinophils 0.1 10^3/uL (0-0.7); Absolute Immature Granulocytes 0.1 10^3/uL (0-0.05); Absolute Lymphocytes 1.8 10^3/uL (1.2-3.4); Absolute Monocytes 1.1 10^3/uL (0.1-0.6); Absolute Neutrophils 3.2 10^3/uL (1.4-6.5); Nucleated Red Blood Cells % 0 % (-)
--- NOTE | 2024-04-08 07:23 | W.PN.HOSP.TC ---
Addendum entered and electronically signed by Obie Arndt MD 04/08/24 09:23:
Seen and examined by me independently in collaboration with the medical claims manager.
Lab data and imaging data reviewed.
Addendum as below :
Patient is much more alert and oriented. Conversive. Little hard to understand as he mumbles 50% of his words.
Sitting in the chair comfortable without agitation.
Afebrile. Blood pressure better. Heart rate still in low 100s and in A-fib.
No respiratory distress.
Chest is clear.
Abdomen soft.
Required 1 dose of Ativan and Haldol yesterday.
Improving encephalopathy. Speech therapy to see and upgrade the diet as appropriate. Consult physical therapy.
Consult psychiatry today.
During the discussions yesterday with the mom realized that patient lost his father, brother, girlfriend all within the last year. He has a history of bipolar disorder. He now has alcohol issues since the deaths in the family.
Continue with rate control medicine for A-fib. Transition to Eliquis.
Transferred to IMU.
Original Note:
Today's Communication/Plan
-
C/w abx. C/w diltizaem ggt & lopressor for rate control. C/t observe ms for return to baseline. Will check iron studies for persistent anemia. Downgrade to IMU. Stop heparin gtt, restart Eliquis.
Assessment / Plan
Assessment / Plan
38 year old male
He is more calm today, however still not quite oriented and able to express himself. Suspect prolonged course of alcohol withdrawal symptoms due to significant EtOH use.
Downgrade to IMU.
ACUTELY MANAGED ISSUES
#Anemia, multifactorial
- On GI ppx with lansoprazole as below. However, persistently low hgb around 9.0 for several days despite no signs of bleeding. Will order iron studies, high suspicion for nutritional deficiencies given significant alcohol use.
#Persistent AMS, likely TME secondary to prolonged alcohol withdrawal
- has been getting Thiamine/Folate since admission, Ativan per protocol, is off sedation and extubated but still lethargic with often nonsensical/garbled speech. Has purposeful movements and can follow basic commands and is occasionally lucid with
clear thoughts and speech.
- Potentially prolonged course of alcohol withdrawal which can take weeks until a return to baseline.
- On Seroquel BID, haldol prn,
#Alcohol Use Disorder w/ possible withdrawal seizure
- MSAS protocol. Thiamine and Folic acid, Ativan per protocol. Finished phenobarb taper. Should be out of DT window as patient has been in hospital >5d
#Persistent Afib
- On cardizem ggt, Lopressor Q6.
- Stopped heparin, restart Eliquis.
- Cards following
#Tracheitis
- Tracheal aspirate cx growing MSSA
- c/w Cefazolin per ID
#Hypertension, primary vs. secondary
- C/w lisinopril 20 bid
#HFrEF - Echo showing EF of 30-35% with global hypokinesis w/ small pericardial effusion. C/w IV lasix 40mg QD.
ACUTE RESOLVED/STABLE ISSUES
#Vtach Cardiac Arrest w/ CPR
- CXR did not show any osseous abnormalities. TTM not initiated due to UGI bleed. Weaned off pressure supports. Head CT showed atrophy and EEG showed diffuse cortical dysfunction without focal abnormality and no seizure activity.
- Extubated, off sedation
#Sepsis, likely secondary to COVID-19 Infection
- Febrile for several days without white count, initially thought propofol rxn vs. bacterial infection, however repeat covid test on 03/28/24 positive. Hypothermic 96.6 F, tachycardic 102, source of infection COVID 19.
- stopped zosyn. Finished x1 dose decadron & 5d Remdesivir
#Superficial Venous Thrombus - swelling in L arm near peripheral line, US confirmed L basilic vein thrombosis. Line removed. Will observe.
#Upper GI Bleed w/ Epistaxis (resolved)
- S/p 1u pRBCs. s/p TXA & cauterization for epistaxis. No signs of active bleeding on exam. Nasal packing removed. Will continue to monitor H&H. Transfuse if hgb <7.
#Elevated Glucose (resolved) - was on LDISS. Sugars have been wnl. D/c LDISS for now.
#Hyponatremia (resolved) - Off fluids. Assess volume status and replete as needed.
#Hyperbilirubinemia (resolved) - possible component of hemolysis vs. Gilbert's Disease. Resolved now.
#Transaminitis, likely alcoholic fatty liver, possible compounding shock liver (resolved) - Elevated AST/ALT on admission 2:1. history of alcohol use and obesity, possible chronic elevation from fatty liver vs. shock liver. AST/ALT normalized. Will
continue to monitor.
#Lactic Acidemia (resolved) - was elevated immediately post cardiac arrest, has come back down. Blood gas showed metabolic acidosis without respiratory compensation; now normal pH.
#Elevated troponins (resolved)- peaked, likely secondary to cardiac arrest.
#Possible Aspiration Pneumonia, seen on admission (resolved as of 03/28/24)
- Blood cx 03/27 NGTD x 48hrs, sputum cx showing usual yvette. COVID/Flu on admission negative. Completed IV Abx through 03/28.
STABLE CHRONIC
#Asthma - per mother at bedside patient has been using his inhaler more frequently for night time shortness of breath. 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 sleep apnea vs. worsening Asthma, however history uncertain. Will continue to observe.
patient currently intubated, will reassess when medically stable.
#Bipolar Disorder, uncertain - patient's mother states he was on Lexapro but stopped on his own due to weight gain. Presently patient is sedated, can consider psych consult in the future depending on patient status.
Diet - NPO
DVT Ppx - SCDs
GI Ppx - Lansoprazole 30 BID
Code Status - Full Code
Anticipated Discharge: > 48 hours
Subjective/Interval History
-
Patient required haldol/ativan overnight, but otherwise was stable. Occasional jumps to HR of 130s-150s, but there is spontaneous resolution within 30seconds. Otherwise no acute complaints. He is somewhat improved but still disoriented.
Objective Data
-
Labs:
Laboratory Results
04/07/24 04/08/24 04/08/24
20:07 04:24 12:00
WBC 6.3
Hgb 9.0 L
Hct 29.4 L
Plt Count 438 H
APTT 43.2 H 34.4 Pending
Sodium 138
Potassium 3.7
Chloride 100
Carbon Dioxide 29
BUN 14
Creatinine 0.7
Glucose 101 H
Calcium 8.5
Total Bilirubin 1.2
AST 70 H
ALT 31
Alkaline Phosphatase 179 H
Vital Signs:
Vital Signs
Temp Pulse Resp BP Pulse Ox
98.2 F 101 23 149/108 94
04/08/24 03:00 04/08/24 05:00 04/08/24 05:00 04/08/24 05:11 04/08/24 05:00
I&O
04/07/24 04/08/24 04/09/24
06:59 06:59 06:59
Intake Total 521.6 / 550.6 1288 / 1288
Output Total 2200 / 2200 1560 / 1560
Balance -1678.4 / -1649.4 -272 / -272
Review of Systems
-
Unable to obtain full review of systems at this time due to: Other (Limited by mental status)
History Source: Patient
Constitutional: Denies Fever
EENT: Denies Sore Throat
Respiratory: Denies Trouble Breathing
Cardiac: Denies Chest Pain
Abdomen/GI: Denies Abdominal Pain
Physical Exam
-
General: Well Developed, Well Nourished and No Apparent Distress
HEENT: Normocephalic, Atraumatic, Moist Mucous Membranes, Anicteric, [place] Conjunctivae, PERRLA, Nose Appears Normal and Ears Appear Normal
Respiratory: Clear to Auscultation; Negative Wheezes, Rales or Rhonchi
Cardiac: S1/S2, Irregular Rhythm and Tachycardic; Negative Murmur
GI: Soft, Nontender, Nondistended and Normal Bowel Sounds
Musculoskeletal: No Clubbing, No Cyanosis and No Edema
Neuro: Awake and Other (Oriented to person and place, but not time. )
Psych: Calm and Confused
[2024-04-08] MEDS: ATROVENT NEBULES 0.5 MG INH ×3 (08:03→19:44)
[2024-04-08] MEDS: XOPENEX 1.25 MG INHALANT SOLUTION INH ×3 (08:03→19:44)
[2024-04-08] MEDS: PULMICORT 0.5 MG INH ×2 (08:04→19:44)
[2024-04-08] MEDS: LASIX 40 MG IV (08:16)
[2024-04-08] MEDS: SEROQUEL 100 MG PO ×2 (08:16→19:38)
[2024-04-08] MEDS: ZESTRIL 20 MG PO ×2 (08:16→19:38)
[2024-04-08] MEDS: FOLVITE 1 MG PO (08:16)
[2024-04-08] MEDS: VITAMIN B1 100 MG PO ×2 (08:16→19:38)
[2024-04-08] MEDS: PREVACID 30 MG TUBE ×2 (08:16→19:38)
[2024-04-08] MEDS: TYLENOL 650 MG PO ×2 (08:16→17:05)
[2024-04-08 08:50] LABS: Iron 45 ug/dl (49-181); Magnesium 1.8 mg/dl (1.6-2.3)
[2024-04-08] MEDS: ELIQUIS 5 MG PO ×2 (08:58→19:38)
[2024-04-08 08:59] LABS: Percent Saturation 10 % (20-50); Total Iron Binding Capacity 446 ug/dl (261-462)
[2024-04-08] MEDS: LOPRESSOR 5 MG IV (09:42)
[2024-04-08 10:13] LABS: Phosphorus 3.9 mg/dl (2.5-4.5)
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
[2024-04-08 10:49] LABS: Ferritin 80.5 ng/ml (17.9-464.0)
[2024-04-08] MEDS: LANOXIN 500 MCG IV (11:02)
[2024-04-08] MEDS: KCL ELIXIR 40 MEQ PO (11:37)
--- NOTE | 2024-04-08 12:31 | W.PN.INTV ---
Today's Communication / Plan
Recommendations
Continue antipsychotics
Aspiration precautions
Monitor H&H
Anticoagulation
IV diuretics
Monitor electrolytes
-
From pulmonary perspective:
Continue nocturnal BiPAP and as needed. Patient is not using consistently
Continue nebulizer therapy while in the hospital to aid with secretion clearance: Pulmicort/DuoNebs
No indication for systemic corticosteroids
Completed ceftazidime for MSSA tracheitis.
Incentive spirometry encouraged
Pulmonary will follow briefly
Assessment
-
Assessment: 38-year-old male non-smoker with a past medical history of persistent A-fib on Eliquis, bipolar affective disorder, asthma, and hypertension who presented with vomiting blood 1 day prior to arrival with dark stools as well as a
nosebleed. He has been having fatigue, shortness of breath and confusion with chest pain. He is normally on Eliquis but he has been holding it for few days due to his bleeding. He does follow-up with cardiology with last visit on 02/17/[address] Phillips. He has a history of nonischemic cardiomyopathy with prior EF of 20-25% with global hypokinesis from echo in December 2023. He was discussing getting an ablation for his A-fib. He has a history of cardioversion x 2 with failure to
restore into sinus rhythm. Also it has been difficult to choose an antiarrhythmic drug in the setting of his lithium drug use with risk of QT prolongation. In the ER he told the doctor he has been having a bloody nose which started on the day of
ER arrival, and has been vomiting bright red blood with dark tarry stools for 1 week. Last dose of Eliquis was on Friday (03/21/2024). In the ER he was afebrile to 97.1 �F, pulse rate 97, breathing at 20 breaths/minute, BP 129/83 and saturating 98%
on room air. Initial labs showed Hb 8.9, platelet count 115, sodium 123, chloride 87, BUN 33, serum osmolarity 302, and urinalysis negative for signs of UTI. Initial CXR showed suspected small right pleural effusion with possible pneumonia in the
right middle lobe. He was initially admitted to the IMU for a GI bleed with epistaxis. Overnight he was agitated and required Precedex drip so was transferred to the ICU, and developed a cardiac arrest while trying to get up out of bed. He was
labeled DNR however when the ICU ACID TANK CLEANER call the family this was reversed, and CPR/ACLS was initiated. He was given an amp of epinephrine and pulse was regained and then he became bradycardic and lost pulse again. CPR resumed and given 2 A of epi and
patient was intubated. ROSC regained. Due to his prearrest seizure-like activity, neurology was called and empiric Keppra was given. TTM was not started given his acute upper GI bleed and epistaxis. He has continued to be managed in the ICU and
marketing recruiter services consulted for additional management/recommendations.
Chronic conditions COST ACCOUNTANT: Asthma, hypertension, bipolar 1 disorder, A-fib
Impression:
#Hemorrhagic shock - shock state now resolved
#In-hospital cardiac arrest with preceding seizure-like activity (withdrawal seizure vs myoclonic jerks)
#Acute blood loss anemia due to reported epistaxis and UGIB with hematemesis
#Acute respiratory failure with hypoxia now on mechanical ventilation (intubated 03/24/2024)
Extubated 04/03/2024
#RUL + bilateral lower lobe pneumonia (confirmed on CT Chest from 03/24/2024)
#Acute thrombocytopenia
#Alcoholism with use of alcohol use drinking vodka daily as well as wine
#Suspected alcohol withdrawal seizure
#History of anxiety
#Metabolic acidosis with increased anion gap + respiratory acidosis - acidosis now resolved
#Lactic acidosis � now resolved
#Hypochloremic, hyponatremia � now resolved
#Hyperglycemia � now resolved
#Transaminitis with hyperbilirubinemia
#Elevated troponin likely due to cardiac arrest
#Chronic HFrEF with RV dysfunction seen on TTE from 03/24/2024
Plan/recommendations:
-
Extubated 04/03
Not on oxygen therapy
Main issue at the moment is his poor mental status-delirium and atrial fibrillation.
-
Unfortunately mental status/agitation remains an issue-restless/agitated at times.
Slowly improving but is still not back to baseline
Patient with significant intermittent agitation
Head CT without acute findings
Patient with episode of PEA,?seizure activity
Neurology evaluated patient, EEG without evidence of seizures
Continue with folic acid, thiamine
History of alcohol abuse noted, last drink 03/22
-
Continue as needed Haldol.
Seroquel restarted as the patient was cleared for diet. 04/06/2024
Continue Haldol as needed
Follow QTc
Off Precedex
-
Systolic heart failure/atrial fibrillation
Chest x-ray without infiltrates 04/01/2024
proBNP 4710
Echocardiogram 03/24/2024: Ejection fraction 30 to 35%. Global hypokinesis. Mild enlarged right ventricular size with reduced right ventricular systolic function. Moderate left atrial dilatation with mild right atrial dilatation. No significant
valvular abnormalities. Small pericardial effusion
Negative fluid status continues.
Continue IV Lasix
Follow renal function electrolytes eventually restart anticoagulation.
Rapid atrial fibrillation since this morning 04/06/2024: Did not respond to IV beta-blockers.
Cardizem drip started 04/06/2024-defer to cardiology titration. Heart rate remains intermittently high.
Beta-blockers restarted
Digoxin added
Transition to Eliquis-monitor for epistaxis and GI bleed
Cardiology follow
-
Lung exam with intermittent rhonchi. Intermittent wheezing at times.
Not on oxygen therapy
Does have chronic hypercapnic respiratory failure likely obesity hypoventilation. ABG 04/04/2024 7.40 /148. Compensated.
Continue with BiPAP as needed and nightly-not using consistently.
Airway clearance measures
Out of bed to chair as able, PT/OT
Start nebulizer therapy 3 times a day Xopenex/Atrovent. While in the hospital
Continue budesonide twice a day. While in the hospital
No longer in isolation.
-
Patient presented with bloody emesis, dark stool-not actively bleeding.
Cleared by speech for diet advancement 04/06/2024.
Hemoglobin is stable. No further bleeding evidence.
Patient had bowel movement 03/29-nonbloody
Abdominal x-ray unremarkable
Abdomen is benign, soft
Back on Eliquis as of 04/08/2024
-
ID following
MSSA tracheitis
Continue cefazolin 6/7 days
Remdesivir completed 04/02/2024
Continue to monitor for fevers-intermittent low-grade fevers may be from Precedex.
Decadron discontinued 03/30
-
Eliquis remains on hold, last dose 03/21. Significant epistaxis noted
Required transfusion 03/23
ENT also evaluated patient.
Dopplers negative for DVT
-
Hemoglobin stable. Transfuse 1 unit 03/23
Abdominal ultrasound with hepatic infiltration, no evidence of cirrhosis
GI following, last seen 03/25, signed off
Recommended to continue pantoprazole twice daily
EGD was not pursued
GI prophylaxis: On pantoprazole
DVT prophylaxis: Restart heparin 04/06/2024-high risk of stroke. Eliquis started 04/08/2024, monitor for bleeding
Diet will be advanced 04/06/2024. Strict aspiration precautions with assistance.
Aspiration precaution
Dr. Conde updated mother at the bedside 04/07/2024. Still patient remains ill but has improved.
Transferred to intermediate care unit.
Pulmonary will continue to follow briefly.
Data:
CXR 03/24/2024:
New mild right upper lobe airspace disease concerning for developing pneumonia.
Possible developing pneumonia in the right costophrenic angle versus atelectasis. Progressed. Mild.
Tiny right pleural effusion. Progressed.
Cardiomegaly. Stable.
CXR 03/27/2024:
1. Moderate cardiomegaly. Mild pulmonary edema.
2. Suspected small bilateral pleural effusions. Left lower lobe airspace disease may also be present.
CXR 03/28/2024: Mild to moderate CHF, slightly progressed. Small right and hyllb-ay-[id number] left pleural effusions with associated atelectasis and/or pneumonia, progressed.
CT chest/abdomen/pelvis without contrast 03/24/2024:
Moderate bibasilar consolidation. This may represent atelectasis or pneumonia.
Bilateral lower lobe, lingular and right upper lobe atelectasis versus scarring.
Small pericardial effusion.
Findings suggesting mild volume overload or third spacing.
Minimal diverticulosis.
Subjective Dataa
Subjective Data
Date of Service:
Date of Service: April 08, 2024
Chief Complaint: Procurement Clerk Follow Up
Subjective:
Continues to be intermittently confused
Sitting out of bed, eating with assistance
Coughing on demand
Denies abdominal pain
Review of Systems
General: Other (Difficult to obtain due to his mental status fluctuations)
Objective Data
Data Reviewed
Vital Signs / I&O / Oxygen:
Vital Signs
Temp Pulse Resp BP Pulse Ox
97.7 F 102 20 128/81 96
04/08/24 12:08 04/08/24 12:00 04/08/24 12:00 04/08/24 12:00 04/08/24 12:12
Intake and Output
04/07/24 04/08/24 04/09/24
06:59 06:59 06:59
Intake Total 521.6 / 550.6 1288 / 1323 325 / 325
Output Total 2200 / 2200 1560 / 1560 300 / 300
Balance -1678.4 / -1649.4 -272 / -237
SaO2 [CPAP/PSV] 100
SaO2 [A/C] 99
SaO2 96
Nasal Cannula flow liters per 2
minute
Physical Exam
General: Comfortable (At rest)
HEENT: Normocephalic, Anicteric, Other (Thick neck) and Other (ETT in place)
Cardiovascular: S1-S2, Regular Rhythm (Tachycardic), Murmur (n), Rub (n), Peripheral Edema (Trace lower extremity edema bilaterally) and Other (Right upper extremity PICC line)
Respiratory: Wheeze (Mild), Crackles (few), Rhonchi (negative), Non-Labored Respirations and Stridor (n)
GI: Soft, Non Distended, Non Tender and Normal Bowel Sounds
Neurology: Awake, No Motor Deficits (Moving 4 extremities, trying to get out of bed), Other (Follow simple commands) and Other (Intermittently restless)
Skin: Warm, Dry, Cyanosis (negative), Jaundice (negative) and Rash (negative)
Labs/Micro/Reports
Lab Data
04/08/24 04:24
04/08/24 04:24
Laboratory Results
04/07/24 04/07/24 04/08/24
12:50 20:07 04:24
APTT 34.1 43.2 H 34.4
04/08/24
12:00
APTT Cancelled
Microbiology
04/01/24 11:04 Blood/Venous Blood Culture - Final
No Growth - Final Report
--- NOTE | 2024-04-08 13:15 | PTCARENOTE ---
Assisted back to bed. Gait is weak but is able to bear some wt. Does get impulsive at times and needs redirection. Fed lunch- at about 60%. No diff noted with swallowing. Pt incont of a mod amt of loose norris stool. Yudith care given and new #25 condom
cath placed. Call farley in reach.
--- NOTE | 2024-04-08 15:10 | W.PN.ID1 ---
Date of Service
Date of Service: April 08, 2024
Today's Communication
Last day of cefazolin.
ID will sign off.
Assessment / Plan
# Suspect tracheitis with MSSA
# s/p VDRF: extubated
- Repeat bcx neg to date
- UA neg
- 04/01 CXR: no pneumonia
- Sputum: MSSA
- Last day of cefazolin 2 gm iv q8 hours (d7 of 7)
# COVID infection
- 03/28/24 COVID ag positive
- Unvaccinated
- s/p Remdesivir x 5d, completed 04/02
- s/p COVID isolation x10 days; dc'd isolation 04/08/24.
# s/p UGI bleed/hematemesis
# s/p Epistaxis - packing removed 03/29
# s/p Alcohol withdrawal
# s/p PEA cardiac arrest
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
Afib on Eliquis
HTN
HFrEF
anxiety
bipolar disorder
Substance abuse in the past
ETOH abuse
Robotic asst lap LACY umbilical/ventral hernia repair w mesh (04/18/2022)
Chief Complaint
-: Pneumonia and Other (covid, tracheitis)
Subjective / Review of Systems
Sitting up on chair.
Vital Signs / Physical Exam
Vital Signs
Vital Signs
Temp Pulse Resp BP Pulse Ox
97.7 F 89 21 117/97 98
04/08/24 12:08 04/08/24 14:01 04/08/24 14:01 04/08/24 14:01 04/08/24 13:49
Physical Exam
Constitutional: No Acute Distress
Cardiovascular: Regular Rate and S1/S2
Pulmonary: Clear
Gastrointestinal: Soft, Non Tender and Non Distended
Extremities: Negative Edema
Objective Data
Lab Data
Lab Results
04/08/24 04:24
04/08/24 04:24
PT 14.9 Sec (11.4-14.6) H 04/06/24 13:07
INR 1.14 04/06/24 13:07
APTT Cancelled 04/08/24 12:00
Estimated Creat Clear > 125 ml/min 04/08/24 04:24
Lactic Acid 1.1 mmol/L (0.7-2.0) 03/24/24 09:25
Total Bilirubin 1.2 mg/dl (0.2-1.3) 04/08/24 04:24
AST 70 U/L (17-59) H 04/08/24 04:24
ALT 31 U/L (0-50) 04/08/24 04:24
Alkaline Phosphatase 179 U/L (38-126) H 04/08/24 04:24
Most recent labs reviewed.
Micro Results:
04/01/24 11:04 Blood Culture - Final
Blood/Venous No Growth - Final Report
04/01/24 11:02 Respiratory Culture - Final
Tracheal Aspirate S aureus-Methicillin Sensitive
Gram Stain - Final
04/01/24 11:22 Influenza Types A & B (TAYE) - Final
Nasal Swab Negative for Influenza A & B, NAAT
Negative results must be combined with clinical observations
and patient history.
Nucleic Acid Amplification test (NAAT)performed on the
pinion-pins platform.
03/27/24 09:01 Blood Culture - Final
Blood/Venous No Growth - Final Report
03/27/24 09:01 Blood Culture - Final
Blood/Venous No Growth - Final Report
03/27/24 17:30 Respiratory Culture - Final
Sputum Usual Respiratory Michelle
Gram Stain - Final
03/28/24 15:21 Influenza Types A & B (TAYE) - Final
Nasal Swab Negative for Influenza A & B, NAAT
Negative results must be combined with clinical observations
and patient history.
Nucleic Acid Amplification test (NAAT)performed on the
pinion-pins platform.
03/25/24 13:46 Respiratory Culture - Final
Endotracheal Usual Respiratory Michelle
Gram Stain - Final
03/26/24 03:45 Legionella Urinary Antigen - Final
Urine Negative for Legionella pneumophila Serogroup 1 antigen.
A negative result does not rule out the possiblity of
Legionella infection due to other serogroups or species of
Legionella. Clinical correlation is recommended.
Streptococcus pneumoniae Antigen (M - Final
Negative for Streptococcus pneumoniae antigen.
A negative result does not exclude infection with
Streptococcus pneumoniae. Clinical correlation is
recommended.
03/24/24 17:54 Legionella Urinary Antigen - Final
Urine Negative for Legionella pneumophila Serogroup 1 antigen.
A negative result does not rule out the possiblity of
Legionella infection due to other serogroups or species of
Legionella. Clinical correlation is recommended.
Streptococcus pneumoniae Antigen (M - Final
Negative for Streptococcus pneumoniae antigen.
A negative result does not exclude infection with
Streptococcus pneumoniae. Clinical correlation is
recommended.
04/02/24 peripheral US: no DVT BLE
04/01/24 CXR: No radiographically demonstrable pneumonia.
03/31/24 CXR: Resolved CHF versus acute pulmonary edema in the interval since prior study.
03/29/24 Periph Vasc US: Occlusive thrombus formation in the left basilic vein
03/28/24 CXR: Mild to moderate CHF, slightly progressed. Small right and jjnap-oz-jturquln left pleural effusions with associated atelectasis and/or pneumonia, progressed.
03/27/24 CXR: Moderate cardiomegaly. Mild pulmonary edema. Suspected small bilateral pleural effusions. Left lower lobe airspace disease may also be present.
03/27/24 AXR: Nonspecific bowel gas pattern without signs of obstruction.
03/24/24 CT a/p: Moderate bibasilar consolidation. This may represent atelectasis or pneumonia. Bilateral lower lobe, lingular and right upper lobe atelectasis versus scarring. Small pericardial effusion. Findings suggesting mild volume overload or
third spacing.
--- NOTE | 2024-04-08 15:47 | CON.MD ---
Consultation - Medical
-
patient seen chart reviewed. discussed with nursing and with dr pemberton. the patient is a 38 year old man who was admitted 03/23/2024 with cc gi bleed. he had been vomiting blood and noted dark stools. he has hx of etoh abuse. nursing tells me
mother found several handles of hard liquor in his home. the patient's condition deteriorated and he has suffered many complications since coming to including but not limited to cardiac arrest (he was dx with HFrEF as well) a fib w rvr,
aspiration pneumonia, covid infection,sepsis, electrolyte imbalance, transaminitis, anemia, unexplained fevers, hyperglycemia, anemia in the context of etoh withdrawal which has been rx w msas ativan, phenobarb, precedex and fentanyl while
intubated. he was intubated after the cardiac arrest and has now been extubated. he is noted to be encephalopathic which is the condition in which i found him. i had a tough time understanding him. his speech was often rather garbled. he had
little ability to attend to the questions i was asking. at one point he told me it was 2003 and as to where he is now [facility] there is notation in the record that he was dx with bpad however lexapro which he is alleged to have taken is
not a usual rx in itself for bipolar disorder. i was also told by [facility] [place] that he suffered several losses of family members but he was in no condition to address this today. he is medicated with seroquel 100 mg bid .he has a prn of haldol which he has
not used. dr pemberton tells me he has had periods of agitaion and today is rather the best he has been. he was calm when i spoke to him...albeit unable to attend to any coherent conversation.
past psych hx see above he reportedly was dx with bipolar and took lexapro as stated not in itself a rx for bipolar which he stopped
medical lhx see above. add obesity asthma cardiomyopathy to above qtc 459 on 04/06 has been 500 prior tox screen on admit benzos mj fentanyl. not clear what was administered here after arrival cat brain atrophy w ventricular prominence no acute
eeg with slowing no focal sz activity
substance abuse etoh abuse specific amounts ingested not known. see above re tox screen
fh not known
social hx unable to assess from patient. mother according to staff is supportive
mse patient lying calmly in bed. smiles from time to time. he was actually pleasant but unable to engage in any meaningful conversation. speech was difficult to understand seemed garbled at times. cognition markedly impaired insight judgment
lacking
dx tme secondary to underlying medical illness possibly hx bipolar disorder etoh use disorder r.o other substance abuse.
recommendations i had spoke to shailesh allison and ruben earlier this week. they had asked me how long etoh wd takes to remediate. in my opinion this patient's encephalopathy is due to a lot more than etoh wd. he had atrophy on his cat scan well
before he came to this time. he suffers from numerous comorbidities including cardiac arrest which are all contributing to his cognitive decline. at this point would recommend staying away from sedating meds as much as possible. i spoke with dr "Rinku"niecy who feels he needs the seroquel and this is the best he's been so i did not touch it. be careful w iv haldol as he has had prolonged qtc earlier in this admit. there is no psychiatric medication which will improved his condition at this
point. it is a matter of keeping him safe and calm while his body heals. cannot say when that will be or how much healing will take place. nursing felt perhaps consult ordered to allow him to talk about his losses but clearly he is unable to do
this at present. nor is he in a condition to talk about remedies for his etoh abuse. psych will sign off please call us when he is able to conversate.
[2024-04-08] MEDS: LANOXIN 250 MCG IV ×2 (16:39→22:27)
--- NOTE | 2024-04-08 17:15 | PTCARENOTE ---
pt has been fondling himself intermittently t/o day pulling off condom catheters. covidien pad around penis/scrotum and diaper given incontinence and confusion. tylenol given for low grade fever and cardizem has been titrated as charted with
digoxin. pt continues with confused conversation/garbled speech. restless and impulsive at times. otherwise please see worklists.
--- NOTE | 2024-04-08 18:10 | PTCARENOTE ---
pt woke up agitated, cursing and saying he was going to go outside to the train when mom came in to visit. pt said he had to urinate, urinal placed and pt wouldn't void. bladder scan for 343. diaper reapplied with covidien given
agitation/confusion. family at bedside. pt adjusted in bed for mom to try and feed.
--- NOTE | 2024-04-08 20:00 | PTCARENOTE ---
Patient received in bed, restless, JAY,, oriented to self only, speaks random words. Afib on monitor, afebrile, blood pressure as documented. Palpable pulses, + anasarca. Knee high SCDS. Lungs diminished and coarse,pulse ox 97% on room air.
Abdomen obese, incontinent of stool and urine. CHG bath given. RDL PICC with Cardizem gtt infusing at 10 mg/hr. Family at bedside
--- NOTE | 2024-04-08 23:53 | PTCARENOTE ---
Patient reassessed, resting comfortably, bed alarm engaged.
[2024-04-09] VITALS (15 sets, daily range): BP systolic 115–192; BP diastolic 73–130; BMI 34.7
[2024-04-09] MEDS: LOPRESSOR PO ×2 (00:04→01:00)
[2024-04-09] MEDS: CARDIZEM 125 IV (00:05)
--- NOTE | 2024-04-09 00:14 | PTCARENOTE ---
Patient sleeping, heart rate in the 60s, cardizem gtt placed on hold.
[2024-04-09] MEDS: LOPRESSOR 5 MG IV ×3 (02:44→18:17)
--- NOTE | 2024-04-09 04:19 | PTCARENOTE ---
Patient continues to sleep soundly. Labs drawn
[2024-04-09 04:23] LABS: Hematocrit 28.9 % (39.0-52.0); Hemoglobin 9.1 g/dL (13.0-18.0); Mean Corp Hgb Conc. 31.5 g/dL (33.0-37.0); Mean Corpuscular Hgb 27.7 pg (27.0-31.0); Mean Corpuscular Volume 88.1 fL (80.0-94.0); Mean Platelet Volume 9.8 fL (7.4-10.4); Platelet Count 409 10^3/uL (130-400); Red Blood Cell Count 3.28 10^6/uL (4.70-6.10); Red Cell Dist. Width 15.6 % (11.5-14.5)
[2024-04-09 04:50] LABS: ALT (SGPT) 35 U/L (0-50); AST (SGOT) 74 U/L (17-59); Albumin 3.3 g/dl (3.5-5.0); Alkaline Phosphatase 164 U/L (38-126); Blood Urea Nitrogen 15 mg/dl (9-20); Calcium 8.7 mg/dl (8.4-10.2); Carbon Dioxide 28 mmol/L (22-30); Chloride 106 mmol/L (98-107); Estimated Creatinine Clearance > 125 ml/min; Glucose 94 mg/dl (70-99); Potassium 3.9 mmol/L (3.5-5.1); Sodium 138 mmol/L (135-145); Total Bilirubin 0.8 mg/dl (0.2-1.3); Total Protein 6.2 g/dl (6.3-8.2); eGFR > 60.00
[2024-04-09] MEDS: LOPRESSOR 50 MG PO ×2 (05:13→11:36)
--- NOTE | 2024-04-09 07:42 | W.PN.HOSP.TC ---
Addendum entered and electronically signed by Obie Arndt MD 04/09/24 15:01:
Seen and examined by me independently in collaboration with the medical typist.
Lab data and imaging data reviewed.
Addendum as below :
Patient is definitely alert but still cognitively impaired. Not much agitation. Requiring occasional Haldol.
Extraocular movements intact. No nystagmus. No motor weakness. Nonfocal neurologically. Difficult exam because of his cognitive impairment.
Continue with current treatments and consider MR imaging of the brain once he is more calmer and if he remains cognitively impaired.
Diet is getting advanced.
A-fib is rate controlled. Transfer to telemetry. Cardiology following.
Did poorly with PT OT and might need rehab on discharge.
Original Note:
Today's Communication/Plan
-
C/t observe MS as patient becomes more alert. Afib management per cards. C/w lasix. PO Iron
Assessment / Plan
Assessment / Plan
38 year old male
Suspect prolonged course of alcohol withdrawal symptoms due to significant EtOH use.
Downgrade to IMU.
ACUTELY MANAGED ISSUES
#Anemia, multifactorial with iron deficiency component
- On GI ppx with lansoprazole as below. However, persistently low hgb around 9.0 for several days despite no signs of bleeding. Iron low, saturation low, ferritin normal. Will give PO Iron.
#Persistent AMS, likely TME secondary to prolonged alcohol withdrawal
- has been getting Thiamine/Folate since admission, Ativan per protocol, is off sedation and extubated but still lethargic with often nonsensical/garbled speech. Has purposeful movements and can follow basic commands and is occasionally lucid with
clear thoughts and speech.
- Potentially prolonged course of alcohol withdrawal which can take weeks until a return to baseline.
- On Seroquel BID, haldol prn
- slowly improving
#AMS with Dysphagia - seen by speech therapy, cleared for IDDSI-4 pureed diet.
#Alcohol Use Disorder w/ possible withdrawal seizure
- MSAS protocol. Thiamine and Folic acid, Ativan per protocol. Finished phenobarb taper. Should be out of DT window as patient has been in hospital >5d
#Persistent Afib
- Off cardizem ggt. On Digoxin PO. C/w Lopressor 50 Q6
- Stopped heparin, restart Eliquis.
- Cards following
#Tracheitis
- Tracheal aspirate cx growing MSSA
- finished Cefazolin course
#Hypertension, primary vs. secondary
- C/w lisinopril 20 bid
#HFrEF - Echo showing EF of 30-35% with global hypokinesis w/ small pericardial effusion. C/w IV lasix 40mg QD.
ACUTE RESOLVED/STABLE ISSUES
#Vtach Cardiac Arrest w/ CPR
- CXR did not show any osseous abnormalities. TTM not initiated due to UGI bleed. Weaned off pressure supports. Head CT showed atrophy and EEG showed diffuse cortical dysfunction without focal abnormality and no seizure activity.
- Extubated, off sedation
#Sepsis, likely secondary to COVID-19 Infection
- Febrile for several days without white count, initially thought propofol rxn vs. bacterial infection, however repeat covid test on 03/28/24 positive. Hypothermic 96.6 F, tachycardic 102, source of infection COVID 19.
- stopped zosyn. Finished x1 dose decadron & 5d Remdesivir
#Superficial Venous Thrombus - swelling in L arm near peripheral line, US confirmed L basilic vein thrombosis. Line removed. Will observe.
#Upper GI Bleed w/ Epistaxis (resolved)
- S/p 1u pRBCs. s/p TXA & cauterization for epistaxis. No signs of active bleeding on exam. Nasal packing removed. Will continue to monitor H&H. Transfuse if hgb <7.
#Elevated Glucose (resolved) - was on LDISS. Sugars have been wnl. D/c LDISS for now.
#Hyponatremia (resolved) - Off fluids. Assess volume status and replete as needed.
#Hyperbilirubinemia (resolved) - possible component of hemolysis vs. Gilbert's Disease. Resolved now.
#Transaminitis, likely alcoholic fatty liver, possible compounding shock liver (resolved) - Elevated AST/ALT on admission 2:1. history of alcohol use and obesity, possible chronic elevation from fatty liver vs. shock liver. AST/ALT normalized. Will
continue to monitor.
#Lactic Acidemia (resolved) - was elevated immediately post cardiac arrest, has come back down. Blood gas showed metabolic acidosis without respiratory compensation; now normal pH.
#Elevated troponins (resolved)- peaked, likely secondary to cardiac arrest.
#Possible Aspiration Pneumonia, seen on admission (resolved as of 03/28/24)
- Blood cx 03/27 NGTD x 48hrs, sputum cx showing usual yvette. COVID/Flu on admission negative. Completed IV Abx through 03/28.
STABLE CHRONIC
#Asthma - per mother at bedside patient has been using his inhaler more frequently for night time shortness of breath. 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 sleep apnea vs. worsening Asthma, however history uncertain. Will continue to observe.
patient currently intubated, will reassess when medically stable.
#Bipolar Disorder, uncertain - patient's mother states he was on Lexapro but stopped on his own due to weight gain. Presently patient is sedated, can consider psych consult in the future depending on patient status.
Diet - IDDSI-4
DVT Ppx - SCDs
GI Ppx - Lansoprazole 30 BID
Code Status - Full Code
Anticipated Discharge: > 48 hours
Subjective/Interval History
-
Off restraints, sleeping. Responded to his name and was cooperative on exam.
Objective Data
-
Labs:
Laboratory Results
04/09/24
04:11
WBC 6.0
Hgb 9.1 L
Hct 28.9 L
Plt Count 409 H
Sodium 138
Potassium 3.9
Chloride 106
Carbon Dioxide 28
BUN 15
Creatinine 0.7
Glucose 94
Calcium 8.7
Total Bilirubin 0.8
AST 74 H
ALT 35
Alkaline Phosphatase 164 H
Vital Signs:
Vital Signs
Temp Pulse Resp BP Pulse Ox
99.3 F 89 22 149/112 92
04/09/24 03:37 04/09/24 06:15 04/09/24 06:15 04/09/24 06:15 04/09/24 04:14
I&O
04/08/24 04/09/24 04/10/24
06:59 06:59 06:59
Intake Total 1288 / 1323 655 / 655
Output Total 1560 / 1560 625 / 625
Balance -272 / -237
Review of Systems
-
History Source: Patient
All other systems: Reviewed and negative
Constitutional: Denies Fever or Chills
EENT: Denies Sore Throat
Respiratory: Denies Cough or Trouble Breathing
Cardiac: Denies Chest Pain or Palpitations
Abdomen/GI: Denies Abdominal Pain or Nausea
Musculoskeletal: Denies Joint Pain, Joint Swelling or Muscle Pain
Neuro: Denies Headache
Physical Exam
-
General: Well Developed, Well Nourished, No Apparent Distress and Obese
HEENT: Normocephalic, Atraumatic, Moist Mucous Membranes, Nose Appears Normal and Ears Appear Normal
Respiratory: Wheezes and Non Labored Respirations; Negative Rales or Rhonchi
Cardiac: S1/S2 and Irregular Rhythm; Negative Murmur or Tachycardic
GI: Soft, Nontender and Nondistended
Musculoskeletal: No Clubbing, No Cyanosis and No Edema
Skin: Warm and Dry
Psych: Calm
[2024-04-09] MEDS: XOPENEX 1.25 MG INHALANT SOLUTION INH ×3 (07:43→18:55)
[2024-04-09] MEDS: ATROVENT NEBULES 0.5 MG INH ×2 (07:43→18:55)
[2024-04-09] MEDS: PULMICORT 0.5 MG INH ×2 (07:43→18:55)
[2024-04-09] MEDS: ELIQUIS 5 MG PO ×2 (08:17→20:59)
[2024-04-09] MEDS: SEROQUEL 100 MG PO ×2 (08:17→21:00)
[2024-04-09] MEDS: FOLVITE 1 MG PO (08:17)
[2024-04-09] MEDS: VITAMIN B1 100 MG PO ×2 (08:17→20:59)
[2024-04-09] MEDS: PREVACID 30 MG TUBE ×2 (08:17→20:59)
[2024-04-09] MEDS: ZESTRIL 20 MG PO (08:17)
[2024-04-09] MEDS: LASIX 40 MG IV (08:17)
--- NOTE | 2024-04-09 08:30 | W.PN.INTV ---
Today's Communication / Plan
Recommendations
Continue nebulizer therapy while in the hospital
Continue BiPAP as able while in the hospital-patient not that compliant due to poor mental status. Recommend follow-up in the outpatient setting with pulmonary
Continue cardiac management
Continue behavioral control
Sign off. Please call if there is any pulmonary decompensation.
Assessment
-
Assessment: 38-year-old male non-smoker with a past medical history of persistent A-fib on Eliquis, bipolar affective disorder, asthma, and hypertension who presented with vomiting blood 1 day prior to arrival with dark stools as well as a
nosebleed. He has been having fatigue, shortness of breath and confusion with chest pain. He is normally on Eliquis but he has been holding it for few days due to his bleeding. He does follow-up with cardiology with last visit on 02/17/[address] Phillips[address] He has a history of nonischemic cardiomyopathy with prior EF of 20-25% with global hypokinesis from echo in December 2023. He was discussing getting an ablation for his A-fib. He has a history of cardioversion x 2 with failure to
restore into sinus rhythm. Also it has been difficult to choose an antiarrhythmic drug in the setting of his lithium drug use with risk of QT prolongation. In the ER he told the doctor he has been having a bloody nose which started on the day of
ER arrival, and has been vomiting bright red blood with dark tarry stools for 1 week. Last dose of Eliquis was on Friday (03/21/2024). In the ER he was afebrile to 97.1 �F, pulse rate 97, breathing at 20 breaths/minute, BP 129/83 and saturating 98%
on room air. Initial labs showed Hb 8.9, platelet count 115, sodium 123, chloride 87, BUN 33, serum osmolarity 302, and urinalysis negative for signs of UTI. Initial CXR showed suspected small right pleural effusion with possible pneumonia in the
right middle lobe. He was initially admitted to the IMU for a GI bleed with epistaxis. Overnight he was agitated and required Precedex drip so was transferred to the ICU, and developed a cardiac arrest while trying to get up out of bed. He was
labeled DNR however when the ICU UNDERGROUND MINING SECTION FOREMAN call the family this was reversed, and CPR/ACLS was initiated. He was given an amp of epinephrine and pulse was regained and then he became bradycardic and lost pulse again. CPR resumed and given 2 A of epi and
patient was intubated. ROSC regained. Due to his prearrest seizure-like activity, neurology was called and empiric Keppra was given. TTM was not started given his acute upper GI bleed and epistaxis. He has continued to be managed in the ICU and
rocket assembly operator services consulted for additional management/recommendations.
Chronic conditions BINGO FLOATER: Asthma, hypertension, bipolar 1 disorder, A-fib
Impression:
#Hemorrhagic shock - shock state now resolved
#In-hospital cardiac arrest with preceding seizure-like activity (withdrawal seizure vs myoclonic jerks)
#Acute blood loss anemia due to reported epistaxis and UGIB with hematemesis
#Acute respiratory failure with hypoxia now on mechanical ventilation (intubated 03/24/2024)
Extubated 04/03/2024
#RUL + bilateral lower lobe pneumonia (confirmed on CT Chest from 03/24/2024)
#Acute thrombocytopenia
#Alcoholism with use of alcohol use drinking vodka daily as well as wine
#Suspected alcohol withdrawal seizure
#History of anxiety
#Metabolic acidosis with increased anion gap + respiratory acidosis - acidosis now resolved
#Lactic acidosis � now resolved
#Hypochloremic, hyponatremia � now resolved
#Hyperglycemia � now resolved
#Transaminitis with hyperbilirubinemia
#Elevated troponin likely due to cardiac arrest
#Chronic HFrEF with RV dysfunction seen on TTE from 03/24/2024
Plan/recommendations:
-
Extubated 04/03
Not on oxygen therapy
Main issue at the moment is his poor mental status-delirium and atrial fibrillation. Slowly improving.
Patient has been transferred to IMU
-
From the pulmonary perspective seems to have improved.-not requiring oxygen supplementation
Not bronchospastic on exam
Strong cough effort
-
Lung exam clear this morning 04/09/2024.
Does have chronic hypercapnic respiratory failure likely obesity hypoventilation. ABG 04/04/2024 7.44/52/148. Compensated.
Likely has obstructive sleep apnea/obesity hypoventilation syndrome.
Continue with BiPAP as needed and nightly-not using consistently. Not clear if this patient will be compliant at home. May continue while in the hospital and can follow-up with the sleep clinic.
Airway clearance measures
Out of bed to chair as able, PT/OT
continue nebulizer therapy while in the hospital:
Xopenex/Atrovent/budesonide.
No longer in isolation.
-
MSSA tracheitis/COVID-resolved
Continue cefazolin 7/7 days
Remdesivir completed 04/02/2024
Decadron discontinued 03/30
-
Mental status/agitation remains an issue-restless/agitated at times.
Slowly improving but is still not back to baseline
Head CT without acute findings
Patient with episode of PEA,?seizure activity
Neurology evaluated patient, EEG without evidence of seizures
Continue with folic acid, thiamine
History of alcohol abuse noted, last drink 03/22
-
Continue as needed Haldol.
Seroquel restarted as the patient was cleared for diet. 04/06/2024
Per primary team
-
Systolic heart failure/atrial fibrillation
Chest x-ray without infiltrates 04/01/2024
proBNP 4710
Echocardiogram 03/24/2024: Ejection fraction 30 to 35%. Global hypokinesis. Mild enlarged right ventricular size with reduced right ventricular systolic function. Moderate left atrial dilatation with mild right atrial dilatation. No significant
valvular abnormalities. Small pericardial effusion
Negative fluid status continues.
Diuresis per primary team and cardiology.
Follow renal function electrolytes eventually restart anticoagulation.
Rapid atrial fibrillation since this morning 04/06/2024: Did not respond to IV beta-blockers.
Cardizem drip started 04/06/2024-defer to cardiology titration.
Beta-blockers restarted
Digoxin added
Transition to Eliquis-monitor for epistaxis and GI bleed
Cardiology follow
-
Patient presented with bloody emesis, dark stool-not actively bleeding.
Cleared by speech for diet advancement 04/06/2024.
Hemoglobin is stable. No further bleeding evidence.
Patient had bowel movement 03/29-nonbloody
Abdominal x-ray unremarkable
Abdomen is benign, soft
Back on Eliquis as of 04/08/2024
-
Eliquis remains on hold, last dose 03/21. Significant epistaxis noted
Required transfusion 03/23
ENT also evaluated patient.
Dopplers negative for DVT
-
Hemoglobin stable. Transfuse 1 unit 03/23
Abdominal ultrasound with hepatic infiltration, no evidence of cirrhosis
GI following, last seen 03/25, signed off
Recommended to continue pantoprazole twice daily
EGD was not pursued
GI prophylaxis: On pantoprazole
DVT prophylaxis: Eliquis started 04/08/2024, monitor for bleeding
Diet will be advanced 04/06/2024. Strict aspiration precautions with assistance.
Aspiration precaution
Dr. Conde updated mother at the bedside 04/07/2024 and 04/08/2024. Still patient remains ill but has improved.
No additional recommendation from the pulmonary perspective.
Sign off
Data:
CXR 03/24/2024:
New mild right upper lobe airspace disease concerning for developing pneumonia.
Possible developing pneumonia in the right costophrenic angle versus atelectasis. Progressed. Mild.
Tiny right pleural effusion. Progressed.
Cardiomegaly. Stable.
CXR 03/27/2024:
1. Moderate cardiomegaly. Mild pulmonary edema.
2. Suspected small bilateral pleural effusions. Left lower lobe airspace disease may also be present.
CXR 03/28/2024: Mild to moderate CHF, slightly progressed. Small right and [id number] left pleural effusions with associated atelectasis and/or pneumonia, progressed.
CT chest/abdomen/pelvis without contrast 03/24/2024:
Moderate bibasilar consolidation. This may represent atelectasis or pneumonia.
Bilateral lower lobe, lingular and right upper lobe atelectasis versus scarring.
Small pericardial effusion.
Findings suggesting mild volume overload or third spacing.
Minimal diverticulosis.
Subjective Dataa
Subjective Data
Date of Service:
Date of Service: April 09, 2024
Chief Complaint: Management Recruiter Follow Up
Subjective:
This morning he denies any pulmonary complaints
Adequate oxygenation on room air
Difficult tolerating BiPAP due to mental status
Objective Data
Data Reviewed
Vital Signs / I&O / Oxygen:
Vital Signs
Temp Pulse Resp BP Pulse Ox
98.3 F 84 18 140/112 92
04/09/24 07:35 04/09/24 08:17 04/09/24 07:45 04/09/24 08:17 04/09/24 04:14
Intake and Output
04/08/24 04/09/24 04/10/24
06:59 06:59 06:59
Intake Total 1288 / 1323 655 / 655
Output Total 1560 / 1560 625 / 625
Balance -272 / -237 30 / 30
SaO2 [CPAP/PSV] 100
SaO2 [A/C] 99
SaO2 92
Nasal Cannula flow liters per 2
minute
Physical Exam
General: Comfortable (At rest)
HEENT: Normocephalic, Anicteric, Other (Thick neck) and Other (ETT in place)
Cardiovascular: S1-S2, Regular Rhythm (Tachycardic), Murmur (n), Rub (n), Peripheral Edema (Trace lower extremity edema bilaterally) and Other (Right upper extremity PICC line)
Respiratory: Wheeze (Mild), Crackles (few), Rhonchi (negative), Non-Labored Respirations and Stridor (n)
GI: Soft, Non Distended, Non Tender and Normal Bowel Sounds
Neurology: Awake, No Motor Deficits (Moving 4 extremities, trying to get out of bed), Other (Follow simple commands) and Other (Intermittently restless)
Skin: Warm, Dry, Cyanosis (negative), Jaundice (negative) and Rash (negative)
Labs/Micro/Reports
Lab Data
04/09/24 04:11
04/09/24 04:11
Laboratory Results
04/08/24
12:00
APTT Cancelled
Microbiology
04/01/24 11:04 Blood/Venous Blood Culture - Final
No Growth - Final Report
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
[2024-04-09] MEDS: TYLENOL 650 MG PO (09:50)
[2024-04-09] MEDS: ALDACTONE 25 MG PO (10:23)
--- NOTE | 2024-04-09 10:51 | PTCARENOTE ---
recd pt handoff at bedside at 0715, resting at intervals, restless at times. speaking sentences, confused and pleasantly forgetful. OOB to chair wtih great cuing, strong, in recliner with chair alarm, tray in front, attempting to feed self
breakfast. chair alarm sounded approx 0900, RN entered room to find pt on knees with head/shoulders on the bed. multiple staff in room, pt assisted back into bed. knees without bruise, no injury, denies any new pain or symptoms. no recall and
unable to explain other than 'I wanted to get back in bed'. Dr. Arndt notified. meds adjusted, new orders, see MAR. swallows well, pills whole at times, no coughing with food or liquids. continuously monitoring, requires redirection. pleasantly
confused.
[2024-04-09] MEDS: LANOXIN 250 MCG PO (11:36)
[2024-04-09] MEDS: FEOSOL 325 MG PO (11:36)
[2024-04-09] MEDS: ATROVENT NEBULES INH (13:26)
[2024-04-09] MEDS: HALDOL 2 MG IV ×2 (13:36→23:14)
--- NOTE | 2024-04-09 13:49 | PTOTSP ---
Dysphagia Therapy
Impression: Mildly prolonged oral stage likely related to edentulous status combined with acute cognitive changes from prolonged alcohol withdrawal.
Plan of care:
1. Advance to IDDSI Level 6 Soft and Bite Sized Solids, Thin Liquids
2. Medications: as best tolerated
3. Strategies: PO only when awake/alert/engaged in task/calm, full supervision, assist as needed, small single sips/bites, slow rate
4. Oral care 3x daily
5. Dysphagia tx f/u at the acute care level to determine if/when diet advancement warranted
--- NOTE | 2024-04-09 13:53 | CM ---
CM spoke with Sarthak's mother to discuss d/c plans. She is concerned about his alcohol use as well as his state of deconditioning. Mother would like pt to be seen by PT/OT; advised this would be initiated when he is medically able to participate
with therapy. We spoke about admission to IP Etoh rehab facility when he is detoxed and medically stable for discharge from the hospital. She understands that Sarthak would have to be willing to go to ETOH rehab, as he cannot be forced or 'committed'
to this type of treatment.
CM asked to fontaine Entresto and Farxiga - each prescription is $3 for a months supply. MD and FRONT END WHEEL LOADER OPERATOR as well as pt's mother notified of Rx cost.
Plan: CM will follow to coordinate discharge plans as indicated by continued hospitalization and pt's agreement for IP substance abuse rehab. [facility] will become involved when pt is able to participate in services.
--- NOTE | 2024-04-09 15:32 | PTCARENOTE ---
sleeping, skin warm dry, VS stable.
--- NOTE | 2024-04-09 18:00 | PTCARENOTE ---
assisted with dinner, napped this pm several hours, awakened for complete bed change, incont large amount/saturated urine. no other change in assessment. confused, calmer, redirectable, follows commands.
[2024-04-09] MEDS: FARXIGA 10 MG PO (18:13)
--- NOTE | 2024-04-09 20:00 | PTCARENOTE ---
rec`d pt at 1900 awake but not oriented. pt does not know he is at the hospital. pt forgetful and impulsive. has a 1-1 sitter. legs weak. afib on monitor. rt D luman PICC. left wrist BPs. +pulses. +1 edema. takes pills whole. RA POX 96. No BM today.
urinates in urinal. family at bedside. call farley in reach. safe environment maintained.
[2024-04-09] MEDS: TOPROL XL 100 MG PO (21:00)
--- NOTE | 2024-04-09 22:02 | PTCARENOTE ---
report given to [address] [place] [address]
--- NOTE | 2024-04-09 22:56 | PTCARENOTE ---
Patient transferred to [facility]. Patient was transferred directly to the bed. VSS. Patient oriented to the unit. 1:1 in room with patient. Bed alarm placed for additional safety. Patient turning self in the bed.
[2024-04-09] MEDS: FLUSH (NSS) 2 FLUSH IV (23:15)
[2024-04-10] VITALS (8 sets, daily range): BP systolic 118–167; BP diastolic 78–100; BMI 33.8
[2024-04-10] MEDS: HALDOL 2 MG IV ×2 (05:14→20:43)
[2024-04-10] MEDS: FLUSH (NSS) 2 FLUSH IV ×2 (05:15→20:44)
--- NOTE | 2024-04-10 06:24 | PTCARENOTE ---
Copy of EKG was given to covering provider.
[2024-04-10 07:55] LABS: Hematocrit 31.7 % (39.0-52.0); Hemoglobin 9.9 g/dL (13.0-18.0); Mean Corp Hgb Conc. 31.2 g/dL (33.0-37.0); Mean Corpuscular Hgb 27.4 pg (27.0-31.0); Mean Corpuscular Volume 87.8 fL (80.0-94.0); Mean Platelet Volume 10.1 fL (7.4-10.4); Platelet Count 483 10^3/uL (130-400); Red Blood Cell Count 3.61 10^6/uL (4.70-6.10); White Blood Cell Count 6.4 10^3/uL (4.8-10.8)
[2024-04-10] MEDS: XOPENEX 1.25 MG INHALANT SOLUTION INH ×3 (07:56→21:05)
[2024-04-10] MEDS: PULMICORT 0.5 MG INH ×2 (07:57→21:05)
[2024-04-10] MEDS: ATROVENT NEBULES 0.5 MG INH ×3 (07:57→21:05)
[2024-04-10 08:07] LABS: ALT (SGPT) 50 U/L (0-50); AST (SGOT) 91 U/L (17-59); Albumin 3.9 g/dl (3.5-5.0); Alkaline Phosphatase 173 U/L (38-126); Blood Urea Nitrogen 11 mg/dl (9-20); Carbon Dioxide 25 mmol/L (22-30); Chloride 103 mmol/L (98-107); Estimated Creatinine Clearance > 125 ml/min; Glucose 86 mg/dl (70-99); Potassium 4.3 mmol/L (3.5-5.1); Sodium 137 mmol/L (135-145); Total Protein 6.6 g/dl (6.3-8.2); eGFR > 60.00
[2024-04-10] MEDS: FARXIGA 10 MG PO (08:20)
[2024-04-10] MEDS: VITAMIN B1 100 MG PO ×2 (08:20→19:53)
[2024-04-10] MEDS: TOPROL XL 100 MG PO ×2 (08:20→19:53)
[2024-04-10] MEDS: ELIQUIS 5 MG PO ×2 (08:20→19:53)
[2024-04-10] MEDS: FEOSOL 325 MG PO (08:20)
[2024-04-10] MEDS: SEROQUEL 100 MG PO ×2 (08:20→19:53)
[2024-04-10] MEDS: ALDACTONE 25 MG PO (08:20)
[2024-04-10] MEDS: DIOVAN 40 MG PO ×2 (08:28→19:53)
[2024-04-10] MEDS: PREVACID 30 MG TUBE ×2 (08:29→20:10)
[2024-04-10] MEDS: LASIX 20 MG PO (08:29)
[2024-04-10] MEDS: FOLVITE 1 MG PO (08:29)
--- NOTE | 2024-04-10 10:58 | W.PN.HOSP.TC ---
Today's Communication/Plan
-
Continue with current supportive treatments
Continue with PT OT
DC planning
Assessment / Plan
Assessment / Plan
38 year old male
#Persistent AMS, likely TME multifactorail and main concern for secondary to prolonged alcohol withdrawal
- has been getting Thiamine/Folate since admission, Ativan per protocol, is off sedation and extubated . .
- Potentially prolonged course of alcohol withdrawal which can take weeks until a return to baseline.
- On Seroquel BID, haldol prn
- slowly improving
#Alcohol Use Disorder w/ possible withdrawal seizure
- MSAS protocol. Thiamine and Folic acid, Ativan per protocol. Finished phenobarb taper. Should be out of DT window as patient has been in hospital >5d
#Anemia, multifactorial with iron deficiency component
- On GI ppx with lansoprazole as below. However, persistently low hgb around 9.0 for several days despite no signs of bleeding. Iron low, saturation low, ferritin normal. Will give PO Iron. Heme test stools
# Dysphagia -cw diet per speech therapy, cleared for IDDSI-6
#Persistent Afib
- Off cardizem ggt. On Digoxin PO. C/w Lopressor 50 Q6
- Stopped heparin, restarted Eliquis.
- Cards following
#Tracheitis
- Tracheal aspirate cx growing MSSA
- finished Cefazolin course
#Hypertension, primary vs. secondary
- C/w lisinopril 20 bid
#Acute on chronic HFrEF - Echo showing EF of 30-35% with global hypokinesis w/ small pericardial effusion. C/w IV lasix 40mg QD.
ACUTE RESOLVED/STABLE ISSUES
#Vtach Cardiac Arrest w/ CPR
- CXR did not show any osseous abnormalities. TTM not initiated due to UGI bleed. Weaned off pressure supports. Head CT showed atrophy and EEG showed diffuse cortical dysfunction without focal abnormality and no seizure activity.
- Extubated, off sedation
#Sepsis, likely secondary to COVID-19 Infection
- Febrile for several days without white count, initially thought propofol rxn vs. bacterial infection, however repeat covid test on 03/28/24 positive. Hypothermic 96.6 F, tachycardic 102, source of infection COVID 19.
- stopped zosyn. Finished x1 dose decadron & 5d Remdesivir
#Superficial Venous Thrombus - swelling in L arm near peripheral line, US confirmed L basilic vein thrombosis. Line removed. Will observe.
#Upper GI Bleed w/ Epistaxis (resolved)
- S/p 1u pRBCs. s/p TXA & cauterization for epistaxis. No signs of active bleeding on exam. Nasal packing removed. Will continue to monitor H&H. Transfuse if hgb <7.
#Elevated Glucose (resolved) - was on LDISS. Sugars have been wnl. D/c LDISS for now.
#Hyponatremia (resolved) - Off fluids. Assess volume status and replete as needed.
#Hyperbilirubinemia (resolved) - possible component of hemolysis vs. Gilbert's Disease. Resolved now.
#Transaminitis, likely alcoholic fatty liver, possible compounding shock liver (resolved) - Elevated AST/ALT on admission 2:1. history of alcohol use and obesity, possible chronic elevation from fatty liver vs. shock liver. AST/ALT normalized. Will
continue to monitor.
#Lactic Acidemia (resolved) - was elevated immediately post cardiac arrest, has come back down. Blood gas showed metabolic acidosis without respiratory compensation; now normal pH.
#Elevated troponins (resolved)- peaked, likely secondary to cardiac arrest.
#Possible Aspiration Pneumonia, seen on admission (resolved as of 03/28/24)
- Blood cx 03/27 NGTD x 48hrs, sputum cx showing usual yvette. COVID/Flu on admission negative. Completed IV Abx through 03/28.
STABLE CHRONIC
#Asthma - per mother at bedside patient has been using his inhaler more frequently for night time shortness of breath. 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 sleep apnea vs. worsening Asthma, however history uncertain. Will continue to observe.
patient currently intubated, will reassess when medically stable.
#Bipolar Disorder, uncertain - patient's mother states he was on Lexapro but stopped on his own due to weight gain. Presently patient is sedated, psych consult and recs noted.
Diet - IDDSI-6
DVT Ppx - SCDs
GI Ppx - Lansoprazole 30 BID
Code Status - Full Code
Anticipated Discharge: > 48 hours
Subjective/Interval History
-
Date of Service: April 10, 2024
Patient is currently one-to-one. He is quite alert and at least today knows he is in the hospital ,cannot name it. He got the month wrong he thought it was May.
Next a fluency of speech-sometimes is clear and then he mumbles which I cannot understand.
According to one-to-one DELINQUENT TAX COLLECTOR he is confused but no agitation. He is able to eat. He was able to get up with one-person help go to the bathroom to have a bowel movement.
Objective Data
-
Labs:
Laboratory Results
04/10/24
06:19
WBC 6.4
Hgb 9.9 L
Hct 31.7 L
Plt Count 483 H
Sodium 137
Potassium 4.3
Chloride 103
Carbon Dioxide 25
BUN 11
Creatinine 0.7
Glucose 86
Calcium 9.0
Total Bilirubin 1.0
AST 91 H
ALT 50
Alkaline Phosphatase 173 H
Vital Signs:
Vital Signs
Temp Pulse Resp BP Pulse Ox
98.0 F 99 18 118/82 98
04/10/24 09:31 04/10/24 09:31 04/10/24 09:31 04/10/24 09:31 04/10/24 09:31
I&O
04/09/24 04/10/24 04/11/24
06:59 06:59 06:59
Intake Total 655 / 655 1320 / 1320
Output Total 625 / 625 1950 / 1950
Balance 30 / 30 -630 / -630
Review of Systems
-
Unable to obtain full review of systems at this time due to: Other (Due to cognitive impairment)
Physical Exam
-
General: No Apparent Distress
Respiratory: Clear to Auscultation (anteriorly) and Non Labored Respirations; Negative Accessory Resp Muscle Use
Cardiac: Regular Rhythm and S1/S2
GI: Soft
Neuro: Awake and Alert; Negative Oriented or Tremors
Psych: Calm and Confused; Negative Agitated
Data Reviewed
-
Labs: Labs Reviewed by me
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
[2024-04-10] MEDS: LANOXIN 250 MCG PO (12:44)
[2024-04-10] MEDS: LOPRESSOR 5 MG IV (16:00)
--- NOTE | 2024-04-10 19:30 | TRANSFER ---
Pt. and belongings transferred to . 1:1 maintained, bed alarm armed.
[2024-04-10] MEDS: TYLENOL 650 MG PO (20:47)
[2024-04-10] MEDS: ATIVAN 1 MG IV (22:04)
[2024-04-10] MEDS: NSS (PRESERVATIVE FREE) 0.5 ML IV (22:04)
--- NOTE | 2024-04-10 22:30 | PTCARENOTE ---
Pt. given PRN Haldol at 2046 for increasing agitation despite 1:1's attempts to redirect patient. Pt. still became increasingly agitated over the next hour despite medication and 1:1. Pt. was able to pull off lunchroom monitor, pulling on IV, throwing
legs out of bed, trying to take off condom cath, and ripping apart picture books. House BOWL TURNER contacted and stat orders received for IV Ativan - see MAR. At 2229, pt. is much more calm, still occasionally grabbing at tele wires but more easily
redirected.
[2024-04-11 03:08] VITALS: BP 185/103
[2024-04-11] MEDS: HALDOL 2 MG IV ×2 (03:21→10:11)
[2024-04-11] MEDS: LOPRESSOR 5 MG IV ×2 (03:22→22:47)
--- NOTE | 2024-04-11 04:03 | PTCARENOTE ---
Pt. immediately agitated and restless upon being woken up for vital signs, again ripping off his cardiac monitor technician and trying to pull out his IV despite 1:1 intervention. Unable to redirect pt. and he continues to pull on the various wires as he's
agreeing to leave things alone. 1:1 held pt's hands and attempted to redirect pt. to prevent him from pulling out his IV however he immediately resumes trying to pull out his IV upon releasing his hands. PRN IV Haldol given and pt. settled back
down, became more relaxed, and able to be redirected shortly after. House WAVE GUIDE ASSEMBLER put orders in for restraints from previous instance of agitation but they have not needed to be utilized at time of writing.
[2024-04-11] MEDS: TYLENOL 650 MG PO (05:55)
[2024-04-11 08:17] VITALS: BP 141/83
[2024-04-11] MEDS: ATROVENT NEBULES 0.5 MG INH ×2 (08:42→14:03)
[2024-04-11] MEDS: XOPENEX 1.25 MG INHALANT SOLUTION INH ×2 (08:42→14:03)
[2024-04-11] MEDS: PULMICORT 0.5 MG INH (08:42)
[2024-04-11] MEDS: VITAMIN B1 100 MG PO ×2 (09:12→20:00)
[2024-04-11] MEDS: ALDACTONE 25 MG PO (09:12)
[2024-04-11] MEDS: PROTONIX 40 MG PO ×2 (09:12→20:00)
[2024-04-11] MEDS: TOPROL XL 100 MG PO ×2 (09:12→20:00)
[2024-04-11] MEDS: ELIQUIS 5 MG PO ×2 (09:13→20:00)
[2024-04-11] MEDS: FEOSOL 325 MG PO (09:13)
[2024-04-11] MEDS: LASIX 20 MG PO (09:13)
[2024-04-11] MEDS: FOLVITE 1 MG PO (09:14)
[2024-04-11] MEDS: SEROQUEL 100 MG PO ×2 (09:14→19:59)
[2024-04-11] MEDS: FARXIGA 10 MG PO (09:14)
[2024-04-11] MEDS: ENTRESTO 24 MG/26 MG 1 TAB PO ×2 (09:22→19:59)
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
--- NOTE | 2024-04-11 11:26 | W.PN.HOSP.TC ---
Today's Communication/Plan
-
CW agitation management meds
CW current cardiac meds
MRI brain in am if he can tolerate
Assessment / Plan
Assessment / Plan
38 year old male
#Persistent AMS, likely TME multifactorail and main concern for secondary to prolonged alcohol withdrawal
- has been getting Thiamine/Folate since admission, Ativan per protocol, is off sedation and extubated . .
- Potentially prolonged course of alcohol withdrawal which can take weeks until a return to baseline.
- On Seroquel BID, haldol prn
- slowly improving
- Now that he is improving will attempt MRI brain with and witout contrast
#Alcohol Use Disorder w/ possible withdrawal seizure
- MSAS protocol. Thiamine and Folic acid, Ativan per protocol. Finished phenobarb taper. Should be out of DT window as patient has been in hospital >7d
#Anemia, multifactorial with iron deficiency component
- On GI ppx with lansoprazole as below. However, persistently low hgb around 9.0 for several days despite no signs of bleeding. Iron low, saturation low, ferritin normal. Will give PO Iron. Heme test stools negative.
# Dysphagia -cw diet per speech therapy, cleared for IDDSI-6
#Persistent Afib
- Off cardizem ggt. On Digoxin PO. C/w Lopressor 50 Q6
- Stopped heparin, restarted Eliquis.
- Cards following
#Tracheitis
- Tracheal aspirate cx growing MSSA
- finished Cefazolin course
#Hypertension, primary vs. secondary
- C/w lisinopril 20 bid
#Acute on chronic HFrEF - Echo showing EF of 30-35% with global hypokinesis w/ small pericardial effusion. C/w IV lasix 40mg QD.
ACUTE RESOLVED/STABLE ISSUES
#Vtach Cardiac Arrest w/ CPR
- CXR did not show any osseous abnormalities. TTM not initiated due to UGI bleed. Weaned off pressure supports. Head CT showed atrophy and EEG showed diffuse cortical dysfunction without focal abnormality and no seizure activity.
- Extubated, off sedation
#Sepsis, likely secondary to COVID-19 Infection
- Febrile for several days without white count, initially thought propofol rxn vs. bacterial infection, however repeat covid test on 03/28/24 positive. Hypothermic 96.6 F, tachycardic 102, source of infection COVID 19.
- stopped zosyn. Finished x1 dose decadron & 5d Remdesivir
#Superficial Venous Thrombus - swelling in L arm near peripheral line, US confirmed L basilic vein thrombosis. Line removed. Will observe.
#Upper GI Bleed w/ Epistaxis (resolved)
- S/p 1u pRBCs. s/p TXA & cauterization for epistaxis. No signs of active bleeding on exam. Nasal packing removed. Will continue to monitor H&H. Transfuse if hgb <7.
#Elevated Glucose (resolved) - was on LDISS. Sugars have been wnl. D/c LDISS for now.
#Hyponatremia (resolved) - Off fluids. Assess volume status and replete as needed.
#Hyperbilirubinemia (resolved) - possible component of hemolysis vs. Gilbert's Disease. Resolved now.
#Transaminitis, likely alcoholic fatty liver, possible compounding shock liver (resolved) - Elevated AST/ALT on admission 2:1. history of alcohol use and obesity, possible chronic elevation from fatty liver vs. shock liver. AST/ALT normalized. Will
continue to monitor.
#Lactic Acidemia (resolved) - was elevated immediately post cardiac arrest, has come back down. Blood gas showed metabolic acidosis without respiratory compensation; now normal pH.
#Elevated troponins (resolved)- peaked, likely secondary to cardiac arrest.
#Possible Aspiration Pneumonia, seen on admission (resolved as of 03/28/24)
- Blood cx 03/27 NGTD x 48hrs, sputum cx showing usual yvette. COVID/Flu on admission negative. Completed IV Abx through 03/28.
STABLE CHRONIC
#Asthma - per mother at bedside patient has been using his inhaler more frequently for night time shortness of breath. 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 sleep apnea vs. worsening Asthma, however history uncertain. Will continue to observe.
patient currently intubated, will reassess when medically stable.
#Bipolar Disorder, uncertain - patient's mother states he was on Lexapro but stopped on his own due to weight gain. Presently patient is sedated, psych consult and recs noted.
Diet - IDDSI-6
DVT Ppx - SCDs
GI Ppx - Lansoprazole 30 BID
Code Status - Full Code
Anticipated Discharge: > 48 hours
Subjective/Interval History
-
Date of Service: April 11, 2024
This morning patient is little more antsy. Needed haldol.
Is trying to get out of bed. There is one-to-one at bedside.
He was better yesterday.
Remains cognitively impaired. He recognizes me and says hello Doc and gives me a fist bump.
He is directable. No agitation.
Mumbles things which we cannot understand.
Objective Data
-
Vital Signs:
Vital Signs
Temp Pulse Resp BP Pulse Ox
98.4 F 94 20 141/83 95
04/11/24 08:17 04/11/24 08:46 04/11/24 08:46 04/11/24 08:17 04/11/24 08:46
I&O
04/10/24 04/11/24 04/12/24
06:59 06:59 06:59
Intake Total 1320 / 1320 1680 / 1680 360 / 360
Output Total 1950 / 1950 1300 / 1300
Balance -630 / -630 380 / 380 360 / 360
Review of Systems
-
Unable to obtain full review of systems at this time due to: Other (cognitive impairment)
Physical Exam
-
General: Comfortable
Respiratory: Clear to Auscultation and Non Labored Respirations; Negative Accessory Resp Muscle Use
Cardiac: S1/S2 and Irregular Rhythm; Negative Tachycardic
GI: Soft
Neuro: Awake, Alert and Oriented (self and person)
Psych: Confused; Negative Calm
[2024-04-11 11:44] VITALS: BP 108/80
[2024-04-11 12:12] VITALS: BP 117/97; PULSE 93; O2SAT 96
[2024-04-11] MEDS: LANOXIN 250 MCG PO (13:39)
--- NOTE | 2024-04-11 15:13 | PTCARENOTE ---
pt anxious, agitated and uncooperative. In/out OOB. Unable to get to focus on RW, pulling tele and condom cath. 1:1 in room. Family did visit, helped soothe then mother felt she was agitating pt. Asked her to bring some photos or things he likes may
help him. She would like a pydayanna consult bc his girlfriend , father and brother all with in 3mo and he was on [place] for bipolar. will pass on to MD. Did state he may not be ready yet.
[2024-04-11] MEDS: ATIVAN 1 MG IV ×2 (16:06→22:05)
--- NOTE | 2024-04-11 16:37 | PTCARENOTE ---
increased agaition. order for Ativan. then placed in bed with nature video and had to sit and speak with him for about 15mins until he finally fell alseep. Does not currently have tel on. But will apply when wakes. He has not slept at all.
[2024-04-11 19:10] VITALS: BP 148/86
[2024-04-11 21:21] LABS: Glucose - Point of Care 96 mg/dl (70-99)
[2024-04-11] MEDS: NSS (PRESERVATIVE FREE) 0.5 ML IV (22:05)
[2024-04-11 22:30] VITALS: BP 110/70
[2024-04-12] VITALS (7 sets, daily range): BP systolic 102–143; BP diastolic 80–97; BMI 33.5
[2024-04-12] MEDS: LOPRESSOR 5 MG IV (03:59)
[2024-04-12] MEDS: ATIVAN 1 MG IV ×4 (04:00→20:13)
[2024-04-12] MEDS: NSS (PRESERVATIVE FREE) 0.5 ML IV ×4 (04:01→20:14)
--- NOTE | 2024-04-12 07:17 | W.PN.HOSP.TC ---
Addendum entered and electronically signed by Elis Tracy MD 04/12/24 18:08:
I saw and evaluated the patient independently. I reviewed the resident�s note and agree with findings and plan as documented by Dr. Cadena.
GENERAL: well developed, well nourished, male, confused, throwing things and kicking
HEENT: NC/AT--no O2 requirements
HEART: irreg irreg
LUNGS : clear to auscultation bilaterally
ABDOM: soft, nontender, nondistended, + bowel sounds
EXT: no cyanosis, clubbing, or edema
NEUROLOGIC: confused--moves all extremities
: condom cath with clear yellow urine
Persistent encephalopathy-- suspect combination of Wernicke's encephalopathy from long-term alcohol dependence/use plus anoxic injury from PEA arrest--cont thiamine/folate--maintain abstinence from ETOH--time will tell if improvement will be
had--ammonia level WNL--prolonged course of alcohol withdrawal can take weeks until a return to baseline--cont seroquel and haldol prn--MRI noted as below
Alcohol Use Disorder w/possible withdrawal seizure- MSAS protocol. Thiamine and Folic acid, Ativan per protocol. Finished phenobarb taper.
Anemia likely acute from blood loss (epistaxis/GI bleed) in combination from Eliquis, with iron deficiency component--s/p pRBC--HGB stable--cont protonix
Dysphagia -cw diet per speech therapy, cleared for IDDSI-6
Persistent Afib-- Off cardizem ggt. On Digoxin PO. C/w Lopressor 50 Q6--Eliquis restarted--apprec cards--no plans for procedures at this point
Tracheitis-- Tracheal aspirate cx growing MSSA--no pna- finished Cefazolin course
Hypertension, primary vs. secondary- C/w lisinopril 20 bid
Acute on chronic HFrEF - Echo showing EF of 30-35% with global hypokinesis w/ small pericardial effusion--lasix
Resolved acute issues:
Vtach Cardiac Arrest w/ CPR--TTM not initiated due to UGI bleed. Weaned off pressure supports. Head CT showed atrophy and EEG showed diffuse cortical dysfunction without focal abnormality and no seizure activity- Extubated, off sedation
Sepsis, likely secondary to COVID-19 Infection- Febrile for several days without white count, initially thought propofol rxn vs. bacterial infection, however repeat covid test on 03/28/24 positive. Hypothermic 96.6 F, tachycardic 102, source of
infection COVID 19--finished zosyn/decadron/Remdesivir
Superficial Venous Thrombus - swelling in L arm near peripheral line, US confirmed L basilic vein thrombosis. Line removed--back on Eliquis
Upper GI Bleed w/ Epistaxis (resolved)- S/p 1u pRBCs. s/p TXA & cauterization for epistaxis. No signs of active bleeding on exam. Nasal packing removed. Will continue to monitor H&H. Transfuse if hgb <7.
Elevated Glucose (resolved)
Hyponatremia (resolved) - Off fluids. Assess volume status and replete as needed.
Hyperbilirubinemia (resolved) - possible component of hemolysis vs. Gilbert's Disease. Resolved now.
Transaminitis, likely alcoholic fatty liver, possible compounding shock liver (resolved) - Elevated AST/ALT on admission 2:1. history of alcohol use and obesity, possible chronic elevation from fatty liver vs. shock liver. AST/ALT normalized. Will
continue to monitor.
Lactic Acidemia (resolved) - was elevated immediately post cardiac arrest, has come back down. Blood gas showed metabolic acidosis without respiratory compensation; now normal pH.
Elevated troponins (resolved)- peaked, likely secondary to cardiac arrest.
Possible Aspiration Pneumonia, seen on admission (resolved as of 03/28/24)- Blood cx 03/27 NGTD x 48hrs, sputum cx showing usual yvette. COVID/Flu on admission negative. Completed IV Abx through 03/28.
Chronic stable conditions
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 sleep apnea vs. worsening Asthma, however history uncertain
Bipolar Disorder, uncertain - patient's mother states he was on Lexapro but stopped on his own due to weight gain--cont seroquel and PRN haldol
DVT proph
CODE STATUS -- full code--was DNR on admission--revoked by pt Mother
Updated mother at bedside--reviewed test results with her--next steps are discharge planning
Original Note:
Today's Communication/Plan
-
The patient's ongoing altered mental status may be secondary due to Wernicke's encephalopathy caused by chronic alcohol use. Head CT conducted on 03/28/2024 suggests moderate atrophy. Brain MRI showed moderate age-related parenchymal atrophy with
no mass effect, midline shift, or extra-axial collection. There was no MRI evidence of an acute infarct. PT OT recommends skilled rehab. Spoke with daughter on the phone and updated her on the patient's current condition. Will begin to move
forward with planning for discharge to a alf facility.
Assessment / Plan
Assessment / Plan
HPI: Patient is a 38-year-old male with a past medical history significant for atrial fibrillation on Eliquis, hypertension, HFrEF, severe asthma, with anxiety and bipolar disorder who presented to the [place] emergency department for evaluation
of a suspected upper GI bleed. The patient reported having projectile vomiting that appeared to be bright red blood colored and dark tarry stools for about a week. He stopped taking his Eliquis 2 days prior to his presentation to the emergency
department on Friday. He reported that he had been compliant with his other cardiac meds. He does see a test car driver and his last follow-up with cardiology was on 02/17/[address] Rodriguez. He has a history of nonischemic cardiomyopathy
with a prior ejection fraction of 20 to 25% with global hypokinesis from an echo in December 2023. At the time he was discussing getting an ablation for his atrial fibrillation. He has a history of cardioversion with 2 failures to restore sinus
rhythm. On the day of his presentation he reported that he had a bloody nose for 3 days and he was unable to get it to stop so he came in for evaluation. The patient reported general fatigue as well as increased shortness of breath when compared
to his baseline. He also admitted to a 30 pound weight gain within the last 3 months. The patient denied any fever, chills, shortness of breath, chest pain, palpitations, nausea, constipation, diarrhea or urinary symptoms. The patient drinks 2
beers and a glass of wine every other night. An EKG conducted in the emergency department showed that the patient was in A-fib. In the emergency department the patient was given epinephrine and tranexamic acid. The nose was packed and the left
nare was cauterized with silver nitrate. The patient's hemoglobin was found to be 8.9 with a hematocrit of 25.8. The patient had hyponatremia with a sodium of 123 and transaminitis with a total bilirubin of 1.5, AST at 112, and ALT at 71. A chest
x-ray was ordered in the emergency department which showed moderate enlargement of the cardiac silhouette, mild blunting of the right posterior and lateral costophrenic angles possibly implying right pleural effusion or mild pleural thickening and
mild opacity in the inferior and middle lobe possibly indicating mild pneumonia or mild subsegmental atelectasis/scarring. The patient was admitted to [facility]'s IMU for upper GI bleed/epistaxis with atrial fibrillation. Unfortunately, he
became agitated overnight and required a Precedex drip so he was transferred to the ICU and developed cardiac arrest trying to get out of bed. He was labeled DNR however when the ICU nurse practitioner called the family this was reversed and
CPR/ACLS was initiated.
Assessment/plan:
-Persistent altered mental status possibly due to Wernicke's encephalopathy secondary to long-term alcohol dependence: Monitoring
The patient has been getting thiamine and folate since his admission
Continue Ativan as per protocol
Continue Seroquel 100 mg p.o. twice daily and Haldol as needed
Patient is no longer sedated and is extubated
MRI conducted on 04/11/2024 showed moderate age-related parenchymal atrophy. No MRI evidence for an acute infarct. Bilateral mastoid effusions. No mass effect, midline shift or extra-axial collection no abnormal signal intensity on
diffusion-weighted images.
-Alcohol use disorder with possible withdrawal seizure - Monitoring
On 03/24/2024 the patient was seen with seizure-like activity before becoming unresponsive requiring ACLS
MSAS protocol
Continue thiamine and folic acid with Ativan as per protocol.
Phenobarbital taper completed.
Ammonia level less than 9
-Persistent atrial fibrillation: Monitoring
Patient is on Toprol-XL 100 mg twice daily
Patient currently on digoxin 250 mcg
Cardiology restarted benazepril on 04/12/2024
Cardiology recommends avoiding usage calcium channel blockers if possible given reduced left ventricular ejection fraction
Sacubitril/valsartan 24 mg / 26 mg twice daily started
Patient is still scheduled for PVI on May 2024
-Anemia, multifactorial with iron deficiency: Stable
On a PPI with lansoprazole
Persistently low hemoglobin around 9 despite no obvious signs of bleed
Iron, iron saturation, and ferritin were low on prior labs. Continue oral iron
-Essential hypertension:
Continue metoprolol tartarate 5 mg IV every 4 hours as needed
Continue metoprolol succinate 100 mg p.o. twice daily
-Dysphagia: Stable
Cleared for IDDSI�6 diet by speech therapy
-Tracheitis: Stable
Tracheal aspirate culture sample grew MSSA
Finished cefazolin course
-Acute on chronic HFrEF: Stable
Prior echo shows ejection fraction of 30 to 35% with global hypokinesis and small pericardial effusion
Continuing with IV Lasix 20 mg daily
-V. tach cardiac arrest with CPR: Monitoring
Chest x-ray did not show any osseous abnormality
Weaned off pressure support
Head CT shows atrophy and EEG showed diffuse cortical dysfunction without focal abnormality and no seizure activity
Patient is extubated and off sedation
-Sepsis, secondary to COVID-19 infection: Stable
Patient was febrile for several days without an elevated white count. Initially this was thought to be a propofol reaction versus a bacterial infection however repeat COVID test on 03/28/2024 was positive. Patient was hypothermic at 96.6 �F,
tachycardic at 102 suggesting that COVID-19 was the causative factor.
Patient has completed Zosyn. Finished 1 dose of Decadron and 5 days of remdesivir
-Superficial venous thrombus: Monitoring
Swelling in left arm near peripheral line
Ultrasound confirmed left basilic vein thrombosis�line removed�will observe
-Hyponatremia: Resolved
Assess volume status and replete as needed
-Hyperbilirubinemia: Resolved
A possible component of hemolysis versus Gilbert's disease.
Continue to monitor
-Transaminitis likely secondary due to alcoholic fatty liver with possible compounding shock liver: Resolved
Patient had an elevated AST and ALT on admission with a ratio of 2:1
Has a history of alcohol use and obesity
-Lactic acidemia: Resolved
Was elevated immediately following his cardiac arrest. Has come back down.
-Asthma: Stable
Continue to monitor
-Bipolar disorder: Stable
Patient's mother states that he used to be on Lexapro but stopped on his own due to weight gain. Appreciate psychiatry consult. Psychiatry is under the impression that the patient's encephalopathy is due to a lot more than alcohol withdrawal.
Note that he had atrophy on his CAT scan well before he came to [facility] and notes numerous comorbidities including cardiac arrest which they believe are contributing to his cognitive decline. They recommended staying away from sedating
meds as much as possible. They also noted to be aware of IV Haldol usage as the patient had a prolonged QTc earlier in the admission.
Diet - IDDSI-6
DVT Ppx - SCDs
GI Ppx - Lansoprazole 30 BID
Code Status - Full Code
Anticipated Discharge: 24 - 48 hours
Subjective/Interval History
-
Met with patient at the bedside. He continues to present with altered mental status and is able to vocalize words but his thoughts appear to be incoherent. He was also seen throwing objects without any apparent cause.
Objective Data
-
Labs:
Labs
04/12/24 07:55
04/12/24 07:23
Vital Signs:
Vital Signs
Temp Pulse Resp BP Pulse Ox
98.3 F 126 20 129/85 98
04/12/24 03:56 04/12/24 03:59 04/12/24 03:56 04/12/24 03:59 04/12/24 03:56
I&O
04/11/24 04/12/24 04/13/24
06:59 06:59 06:59
Intake Total 1680 / 1680 2160 / 2160
Output Total 1300 / 1300 550 / 550
Balance 380 / 380 1610 / 1610
Review of Systems
-
Unable to obtain full review of systems at this time due to: Other (Altered Mental Status)
History Source: Patient
Constitutional: Reports No Symptoms
Abdomen/GI: Reports No Symptoms
Physical Exam
-
General: Well Developed, Well Nourished, No Apparent Distress, Comfortable, Slurred Speech and Other (Confused)
HEENT: Normocephalic, Atraumatic and Moist Mucous Membranes
Respiratory: Clear to Auscultation
Cardiac: Regular Rhythm and S1/S2
Breast: Deferred by me
GI: Soft, Nontender, Nondistended and Normal Bowel Sounds
Musculoskeletal: No Clubbing, No Cyanosis and No Edema
Psych: Confused
[2024-04-12] MEDS: FARXIGA 10 MG PO (08:17)
[2024-04-12] MEDS: FOLVITE 1 MG PO (08:17)
[2024-04-12] MEDS: FEOSOL 325 MG PO (08:17)
[2024-04-12] MEDS: ALDACTONE 25 MG PO (08:17)
[2024-04-12] MEDS: ENTRESTO 24 MG/26 MG 1 TAB PO ×2 (08:18→20:20)
[2024-04-12] MEDS: PROTONIX 40 MG PO ×2 (08:18→20:20)
[2024-04-12] MEDS: LASIX 20 MG PO (08:18)
[2024-04-12] MEDS: ELIQUIS 5 MG PO ×2 (08:18→20:20)
[2024-04-12] MEDS: SEROQUEL 100 MG PO ×2 (08:18→20:21)
[2024-04-12] MEDS: VITAMIN B1 100 MG PO ×2 (08:18→20:20)
[2024-04-12] MEDS: TOPROL XL 100 MG PO ×2 (08:18→20:20)
[2024-04-12 08:36] LABS: Hematocrit 35.5 % (39.0-52.0); Hemoglobin 11.5 g/dL (13.0-18.0); Mean Corp Hgb Conc. 32.4 g/dL (33.0-37.0); Mean Corpuscular Hgb 27.1 pg (27.0-31.0); Mean Corpuscular Volume 83.7 fL (80.0-94.0); Mean Platelet Volume 10.6 fL (7.4-10.4); Platelet Count 527 10^3/uL (130-400); Red Blood Cell Count 4.24 10^6/uL (4.70-6.10); Red Cell Dist. Width 15.2 % (11.5-14.5); White Blood Cell Count 8.3 10^3/uL (4.8-10.8)
[2024-04-12 09:12] LABS: ALT (SGPT) 47 U/L (0-50); AST (SGOT) 67 U/L (17-59); Albumin 4.1 g/dl (3.5-5.0); Alkaline Phosphatase 190 U/L (38-126); Blood Urea Nitrogen 13 mg/dl (9-20); Calcium 9.4 mg/dl (8.4-10.2); Carbon Dioxide 21 mmol/L (22-30); Chloride 105 mmol/L (98-107); Digoxin 0.8 ng/ml (0.8-2.0); Estimated Creatinine Clearance > 125 ml/min; Glucose 65 mg/dl (70-99); Potassium 4.8 mmol/L (3.5-5.1); Sodium 138 mmol/L (135-145); Total Protein 7.5 g/dl (6.3-8.2); eGFR > 60.00
[2024-04-12] MEDS: LANOXIN 250 MCG PO (12:18)
[2024-04-12] MEDS: HALDOL 2 MG IV (12:36)
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
[2024-04-12] MEDS: TYLENOL 650 MG PO (15:26)
[2024-04-12 15:37] LABS: Ammonia < 9 umol/L (9-30)
[2024-04-13 03:00] VITALS: BP 137/84
[2024-04-13] MEDS: ATIVAN 1 MG IV (03:25)
[2024-04-13] MEDS: NSS (PRESERVATIVE FREE) 0.5 ML IV (03:26)
[2024-04-13 06:00] VITALS: BMI 33.4
[2024-04-13 07:05] VITALS: BP 128/94
--- NOTE | 2024-04-13 07:19 | W.PN.HOSP.TC ---
Addendum entered and electronically signed by Elis Tracy MD 04/13/24 21:02:
I saw and evaluated the patient independently. I reviewed the resident�s note and agree with findings and plan as documented by Dr. Cadena.
GENERAL: well developed, well nourished, male, confused, throwing things and kicking
HEENT: NC/AT--no O2 requirements
HEART: irreg irreg
LUNGS : clear to auscultation bilaterally
ABDOM: soft, nontender, nondistended, + bowel sounds
EXT: no cyanosis, clubbing, or edema
NEUROLOGIC: confused--moves all extremities
: condom cath with clear yellow urine--pt pulled off
Persistent encephalopathy-- suspect combination of Wernicke's encephalopathy from long-term alcohol dependence/use plus anoxic injury from PEA arrest--cont thiamine/folate--maintain abstinence from ETOH--time will tell if improvement will be
had--ammonia level WNL--cont seroquel and decrease haldol prn--MRI noted as below in Dr. Cadena note--consult psych
Alcohol Use Disorder w/possible withdrawal seizure- MSAS protocol. Thiamine and Folic acid, Ativan per protocol. Finished phenobarb taper.
Anemia likely acute from blood loss (epistaxis/GI bleed) in combination from Eliquis, with iron deficiency component--s/p pRBC--HGB stable--cont protonix
Dysphagia -diet per speech therapy, cleared for IDDSI-6
Persistent Afib-- Off cardizem ggt. On Digoxin PO. C/w Lopressor 50 Q6--Eliquis restarted--apprec cards--no plans for procedures at this point
Hypertension, primary vs. secondary- C/w lisinopril 20 bid
Acute on chronic HFrEF - Echo showing EF of 30-35% with global hypokinesis w/ small pericardial effusion--lasix
Resolved acute issues:
Vtach Cardiac Arrest w/ CPR--TTM not initiated due to UGI bleed. Weaned off pressure supports. Head CT showed atrophy and EEG showed diffuse cortical dysfunction without focal abnormality and no seizure activity- Extubated, off sedation
Sepsis, likely secondary to COVID-19 Infection- Febrile for several days without white count, initially thought propofol rxn vs. bacterial infection, however repeat covid test on 03/28/24 positive. Hypothermic 96.6 F, tachycardic 102, source of
infection COVID 19--finished zosyn/decadron/Remdesivir
Superficial Venous Thrombus - swelling in L arm near peripheral line, US confirmed L basilic vein thrombosis. Line removed--back on Eliquis
Upper GI Bleed w/ Epistaxis (resolved)- S/p 1u pRBCs. s/p TXA & cauterization for epistaxis. No signs of active bleeding on exam. Nasal packing removed. Will continue to monitor H&H. Transfuse if hgb <7.
Elevated Glucose (resolved)
Hyponatremia (resolved) - Off fluids. Assess volume status and replete as needed.
Hyperbilirubinemia (resolved) - possible component of hemolysis vs. Gilbert's Disease. Resolved now.
Transaminitis, likely alcoholic fatty liver, possible compounding shock liver (resolved) - Elevated AST/ALT on admission 2:1. history of alcohol use and obesity, possible chronic elevation from fatty liver vs. shock liver. AST/ALT normalized. Will
continue to monitor.
Lactic Acidemia (resolved) - was elevated immediately post cardiac arrest, has come back down. Blood gas showed metabolic acidosis without respiratory compensation; now normal pH.
Elevated troponins (resolved)- peaked, likely secondary to cardiac arrest.
Possible Aspiration Pneumonia, seen on admission (resolved as of 03/28/24)- Blood cx 03/27 NGTD x 48hrs, sputum cx showing usual yvette. COVID/Flu on admission negative. Completed IV Abx through 03/28.
Tracheitis-- Tracheal aspirate cx growing MSSA--no pna- finished Cefazolin course
Chronic stable conditions:
Asthma - was using his inhaler more frequently for night time shortness of breath [employer]. 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 sleep apnea vs. worsening Asthma, however history uncertain
Bipolar Disorder, uncertain - patient's mother states he was on Lexapro but stopped on his own due to weight gain--cont seroquel and PRN haldol
DVT proph
CODE STATUS -- full code--was DNR on admission--revoked by pt Mother
Original Note:
Today's Communication/Plan
-
The patient appears to be at his new baseline and has reached maximal benefit from this hospital admission. We have spoken to the family and reviewed test results with them. Currently working on discharge planning to a prison facility as
per recommendations by physical therapy.
Assessment / Plan
Assessment / Plan
Assessment/plan:
-Persistent altered mental status possibly due to Wernicke's encephalopathy secondary to long-term alcohol dependence: Monitoring
The patient has been getting thiamine and folate since his admission
Continue Ativan as per protocol
Continue Seroquel 100 mg p.o. twice daily and Haldol as needed
Patient is no longer sedated and is extubated
MRI conducted on 04/11/2024 showed moderate age-related parenchymal atrophy. No MRI evidence for an acute infarct. Bilateral mastoid effusions. No mass effect, midline shift or extra-axial collection no abnormal signal intensity on
diffusion-weighted images.
Status unchanged from 04/13/2024
-Alcohol use disorder with possible withdrawal seizure - Monitoring
On 03/24/2024 the patient was seen with seizure-like activity before becoming unresponsive requiring ACLS
MSAS protocol
Continue thiamine and folic acid with Ativan as per protocol.
Phenobarbital taper completed.
Ammonia level less than 9
-Hyperkalemia:
Potassium is 5.3 on 04/13/2024
The slight elevation may be due to lysis during blood draw -will recheck on next draw
-Persistent atrial fibrillation: Monitoring
Patient is on Toprol-XL 100 mg twice daily
Patient currently on digoxin 250 mcg
Cardiology restarted benazepril on 04/12/2024
Cardiology recommends avoiding usage calcium channel blockers if possible given reduced left ventricular ejection fraction
Sacubitril/valsartan 24 mg / 26 mg twice daily started
Patient is still scheduled for PVI on May 2024
-Anemia, multifactorial with iron deficiency: Stable
On a PPI with lansoprazole
Persistently low hemoglobin around 9 despite no obvious signs of bleed
Iron, iron saturation, and ferritin were low on prior labs. Continue oral iron
-Essential hypertension:
Continue metoprolol tartarate 5 mg IV every 4 hours as needed
Continue metoprolol succinate 100 mg p.o. twice daily
-Dysphagia: Stable
Cleared for IDDSI�6 diet by speech therapy
-Tracheitis: Stable
Tracheal aspirate culture sample grew MSSA
Finished cefazolin course
-Acute on chronic HFrEF: Stable
Prior echo shows ejection fraction of 30 to 35% with global hypokinesis and small pericardial effusion
Continuing with IV Lasix 20 mg daily
-V. tach cardiac arrest with CPR: Monitoring
Chest x-ray did not show any osseous abnormality
Weaned off pressure support
Head CT shows atrophy and EEG showed diffuse cortical dysfunction without focal abnormality and no seizure activity
Patient is extubated and off sedation
-Sepsis, secondary to COVID-19 infection: Stable
Patient was febrile for several days without an elevated white count. Initially this was thought to be a propofol reaction versus a bacterial infection however repeat COVID test on 03/28/2024 was positive. Patient was hypothermic at 96.6 �F,
tachycardic at 102 suggesting that COVID-19 was the causative factor.
Patient has completed Zosyn. Finished 1 dose of Decadron and 5 days of remdesivir
-Superficial venous thrombus: Monitoring
Swelling in left arm near peripheral line
Ultrasound confirmed left basilic vein thrombosis�line removed�will observe
-Hyponatremia: Resolved
Assess volume status and replete as needed
-Hyperbilirubinemia: Resolved
A possible component of hemolysis versus Gilbert's disease.
Continue to monitor
-Transaminitis likely secondary due to alcoholic fatty liver with possible compounding shock liver: Resolved
Patient had an elevated AST and ALT on admission with a ratio of 2:1
Has a history of alcohol use and obesity
-Lactic acidemia: Resolved
Was elevated immediately following his cardiac arrest. Has come back down.
-Asthma: Stable
Continue to monitor
-Bipolar disorder: Stable
Patient's mother states that he used to be on Lexapro but stopped on his own due to weight gain. Appreciate psychiatry consult. Psychiatry is under the impression that the patient's encephalopathy is due to a lot more than alcohol withdrawal.
Note that he had atrophy on his CAT scan well before he came to [facility] and notes numerous comorbidities including cardiac arrest which they believe are contributing to his cognitive decline. They recommended staying away from sedating
meds as much as possible. They also noted to be aware of IV Haldol usage as the patient had a prolonged QTc earlier in the admission.
Diet - IDDSI-6
DVT Ppx - SCDs
GI Ppx - Lansoprazole 30 BID
Code Status - Full Code
Imaging:
Brain MRI on 04/11/2024: No MRI evidence for acute infarct. Bilateral mastoid effusions. Moderate age-related parenchymal atrophy. No masslike effect, midline shift, or extra-axial collection.
Anticipated Discharge: 24 - 48 hours
Subjective/Interval History
-
Met with patient at the bedside. He remains confused and speaks in incoherent sentences. He is agitated and hard to redirect.
Objective Data
-
Labs:
Labs
04/13/24 07:15
04/13/24 07:15
Vital Signs:
Vital Signs
Temp Pulse Resp BP Pulse Ox
97.0 F 93 18 128/94 99
04/13/24 07:05 04/13/24 07:05 04/13/24 07:05 04/13/24 07:05 04/13/24 07:05
I&O
04/12/24 04/13/24 04/14/24
06:59 06:59 06:59
Intake Total 2160 / 2160 360 / 360
Output Total 550 / 550 525 / 525
Balance 1610 / 1610 -165 / -165
Review of Systems
-
Unable to obtain full review of systems at this time due to: Other (Confusion)
Respiratory: Reports No Symptoms
Cardiac: Reports No Symptoms
Abdomen/GI: Reports No Symptoms
Skin: Reports No Symptoms
Physical Exam
-
General: Well Developed, Well Nourished, Conversant and Other (Incoherent speech)
HEENT: Normocephalic, Atraumatic and Moist Mucous Membranes
Respiratory: Clear to Auscultation
Cardiac: Regular Rhythm and S1/S2
Breast: Deferred by me
GI: Soft, Nontender, Nondistended and Normal Bowel Sounds
Musculoskeletal: No Clubbing, No Cyanosis and No Edema
Skin: Warm and Dry
Neuro: Awake, Alert, Oriented and AO x 3
Psych: Confused
[2024-04-13 07:31] LABS: Hematocrit 37.5 % (39.0-52.0); Hemoglobin 11.9 g/dL (13.0-18.0); Mean Corp Hgb Conc. 31.7 g/dL (33.0-37.0); Mean Corpuscular Hgb 27.4 pg (27.0-31.0); Mean Corpuscular Volume 86.2 fL (80.0-94.0); Mean Platelet Volume 9.9 fL (7.4-10.4); Platelet Count 542 10^3/uL (130-400); Red Blood Cell Count 4.35 10^6/uL (4.70-6.10); Red Cell Dist. Width 15.1 % (11.5-14.5); White Blood Cell Count 6.9 10^3/uL (4.8-10.8)
[2024-04-13 07:50] LABS: Blood Urea Nitrogen 15 mg/dl (9-20); Calcium 9.4 mg/dl (8.4-10.2); Carbon Dioxide 23 mmol/L (22-30); Chloride 103 mmol/L (98-107); Estimated Creatinine Clearance > 125 ml/min; Glucose 88 mg/dl (70-99); Potassium 5.3 mmol/L (3.5-5.1); Sodium 138 mmol/L (135-145); eGFR > 60.00
[2024-04-13] MEDS: ALDACTONE 25 MG PO (09:03)
[2024-04-13] MEDS: PROTONIX 40 MG PO ×2 (09:03→19:11)
[2024-04-13] MEDS: FOLVITE 1 MG PO (09:03)
[2024-04-13] MEDS: FEOSOL 325 MG PO (09:03)
[2024-04-13] MEDS: LASIX 20 MG PO (09:03)
[2024-04-13] MEDS: SEROQUEL 100 MG PO ×2 (09:03→19:10)
[2024-04-13] MEDS: ENTRESTO 24 MG/26 MG 1 TAB PO ×2 (09:03→19:10)
[2024-04-13] MEDS: FARXIGA 10 MG PO (09:03)
[2024-04-13] MEDS: VITAMIN B1 100 MG PO ×2 (09:03→19:10)
[2024-04-13] MEDS: TOPROL XL 100 MG PO ×2 (09:04→19:10)
[2024-04-13] MEDS: ELIQUIS 5 MG PO ×2 (09:04→19:11)
[2024-04-13 11:32] VITALS: BP 120/91
[2024-04-13] MEDS: LANOXIN 250 MCG PO (12:26)
[2024-04-13] MEDS: HALDOL 2 MG IV (14:09)
[2024-04-13] MEDS: TYLENOL 650 MG PO (14:09)
--- NOTE | 2024-04-13 15:11 | PTCARENOTE ---
pt transferred to orth awake and alert. oriented only to self. Pt is restless and uncooperative, immediately attempting to get oob, removing telemetry box. redirection and education unsuccessful. difficult to do a physical assessment d/t
restlessness and uncooperative behaviors. afib, irregular apical. Pt appears NUNO, difficult to hear lung sounds pt uncooperative. abd round, NT +bs x4 incont, condom cath but pt promptly removed. Trace anasarca, +PP B/L. Fall risk. 1:1 at bedside
offering constant redirection.
--- NOTE | 2024-04-13 15:52 | CM ---
Patient seen at bedside with physicians. Patient agitated and trying to get out of the bed. CM will call patient mother to discuss options for SNF when medically appropriate. CM will continue to follow for discharge planning needs.
Plan; SNF
[2024-04-13 16:00] VITALS: BP 117/75
[2024-04-13 19:00] VITALS: BP 124/76
[2024-04-13] MEDS: DESENEX/MITRAZOL/ZEASORB 1 APPLIC TOPICAL (19:11)
[2024-04-14] VITALS (7 sets, daily range): BP systolic 95–128; BP diastolic 57–93; PULSE 75–85; O2SAT 95; BMI 32.6; BMI 33.5
[2024-04-14] MEDS: HALDOL 1 MG IV ×2 (05:28→20:10)
--- NOTE | 2024-04-14 07:13 | W.PN.HOSP.TC ---
Addendum entered and electronically signed by Elis Tracy MD 04/14/24 15:13:
I saw and evaluated the patient independently. I reviewed the resident�s note and agree with findings and plan as documented by Dr. Cadena.
GENERAL: well developed, well nourished, male, much improved but still not at baseline cognitively
HEENT: NC/AT--no O2 requirements
HEART: irreg irreg
LUNGS : clear to auscultation bilaterally
ABDOM: soft, nontender, nondistended, + bowel sounds
EXT: no cyanosis, clubbing, or edema
NEUROLOGIC: confused
Persistent encephalopathy-- suspect combination of Wernicke's encephalopathy from long-term alcohol dependence/use plus anoxic injury from PEA arrest (? brain injury?)--cont thiamine/folate--maintain abstinence from ETOH--time will tell if
improvement will be had--ammonia level WNL--cont seroquel and decrease haldol prn--MRI noted--await psych
Alcohol Use Disorder w/possible withdrawal seizure- MSAS protocol. Thiamine and Folic acid, Ativan per protocol. Finished phenobarb taper.
Anemia likely acute from blood loss (epistaxis/GI bleed) in combination from Eliquis, with iron deficiency component--s/p pRBC--HGB stable--cont protonix
Dysphagia -diet per speech therapy
Persistent Afib-- Off cardizem drip. On Digoxin PO. Lopressor 50 Q6--Eliquis restarted--apprec cards--no plans for procedures at this point
Hypertension, primary vs. secondary- -cont lisinopril 20 bid
Acute on chronic HFrEF - Echo showing EF of 30-35% with global hypokinesis w/ small pericardial effusion--lasix
Resolved acute issues:
Vtach Cardiac Arrest w/ CPR--TTM not initiated due to UGI bleed. Weaned off pressure supports. Head CT showed atrophy and EEG showed diffuse cortical dysfunction without focal abnormality and no seizure activity- Extubated, off sedation
Sepsis, likely secondary to COVID-19 Infection- Febrile for several days without white count, initially thought propofol rxn vs. bacterial infection, however repeat covid test on 03/28/24 positive. Hypothermic 96.6 F, tachycardic 102, source of
infection COVID 19--finished zosyn/decadron/Remdesivir
Superficial Venous Thrombus - swelling in L arm near peripheral line, US confirmed L basilic vein thrombosis. Line removed--back on Eliquis
Upper GI Bleed w/ Epistaxis (resolved)- S/p 1u pRBCs. s/p TXA & cauterization for epistaxis. No signs of active bleeding on exam. Nasal packing removed. Will continue to monitor H&H. Transfuse if hgb <7.
Elevated Glucose (resolved)
Hyponatremia (resolved) - Off fluids. Assess volume status and replete as needed.
Hyperbilirubinemia (resolved) - possible component of hemolysis vs. Gilbert's Disease. Resolved now.
Transaminitis, likely alcoholic fatty liver, possible compounding shock liver (resolved) - Elevated AST/ALT on admission 2:1. history of alcohol use and obesity, possible chronic elevation from fatty liver vs. shock liver. AST/ALT normalized. Will
continue to monitor.
Lactic Acidemia (resolved) - was elevated immediately post cardiac arrest, has come back down. Blood gas showed metabolic acidosis without respiratory compensation; now normal pH.
Elevated troponins (resolved)- peaked, likely secondary to cardiac arrest.
Possible Aspiration Pneumonia, seen on admission (resolved as of 03/28/24)- Blood cx 03/27 NGTD x 48hrs, sputum cx showing usual yvette. COVID/Flu on admission negative. Completed IV Abx through 03/28.
Tracheitis-- Tracheal aspirate cx growing MSSA--no pna- finished Cefazolin course
Chronic stable conditions:
Asthma - was using his inhaler more frequently for night time shortness of breath [employer]. 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 sleep apnea vs. worsening Asthma, however history uncertain
Bipolar Disorder--- patient's mother states he was on Lexapro but stopped on his own due to weight gain--cont seroquel and PRN haldol, dose reduced
DVT proph
CODE STATUS -- full code--was DNR on admission--revoked by pt Mother
PT/OT--consult Physiatry--await input--d/c planning
Original Note:
Today's Communication/Plan
-
Patient is much more clear today. The reduction in Haldol dose likely contributed to the improvement in mental status. Spoke to the mother about the need for placement in acute rehab. Discussed the possibility of the patient being sent to [facility] upon discharge for rehabilitation. The mother said that she would do more research both would decide if that would be best for the patient.
Assessment / Plan
Assessment / Plan
Assessment/plan:
-Persistent altered mental status possibly due to Wernicke's encephalopathy secondary to long-term alcohol dependence: Improving
The patient has been getting thiamine and folate since his admission
Continue Ativan as per protocol
Continue Seroquel 100 mg p.o. twice daily
Patient is no longer sedated and is extubated
MRI conducted on 04/11/2024 showed moderate age-related parenchymal atrophy. No MRI evidence for an acute infarct. Bilateral mastoid effusions. No mass effect, midline shift or extra-axial collection no abnormal signal intensity on
diffusion-weighted images.
Status unchanged from 04/13/2024
Haldol dosage was reduced to 1 mg IV every 8 hours as needed after recommendations from psychiatry. The patient is much more clear after this medication adjustment.
-Alcohol use disorder with possible withdrawal seizure - Monitoring
On 03/24/2024 the patient was seen with seizure-like activity before becoming unresponsive requiring ACLS
MSAS protocol
Continue thiamine and folic acid with Ativan as per protocol.
Phenobarbital taper completed.
Ammonia level less than 9
-Ambulatory Dysfunction:
Patient is much clearer on 04/14/2024 but remains unable to and steady on his feet.
PT OT evaluation recommends that the patient receive acute rehab upon discharge.
Consulted physiatry for evaluation for acute rehab placement.
-Hyperkalemia:
Potassium is 5.3 on 04/13/2024
The slight elevation may be due to lysis during blood draw -will recheck on next draw
-Persistent atrial fibrillation: Monitoring
Patient is on Toprol-XL 100 mg twice daily
Patient currently on digoxin 250 mcg
Cardiology restarted benazepril on 04/12/2024
Cardiology recommends avoiding usage calcium channel blockers if possible given reduced left ventricular ejection fraction
Sacubitril/valsartan 24 mg / 26 mg twice daily started
Patient is still scheduled for PVI on May 2024
-Anemia, multifactorial with iron deficiency: Stable
On a PPI with lansoprazole
Persistently low hemoglobin around 9 despite no obvious signs of bleed
Iron, iron saturation, and ferritin were low on prior labs. Continue oral iron
-Essential hypertension:
Continue metoprolol tartarate 5 mg IV every 4 hours as needed
Continue metoprolol succinate 100 mg p.o. twice daily
-Dysphagia: Stable
Cleared for IDDSI�6 diet by speech therapy
-Tracheitis: Stable
Tracheal aspirate culture sample grew MSSA
Finished cefazolin course
-Acute on chronic HFrEF: Stable
Prior echo shows ejection fraction of 30 to 35% with global hypokinesis and small pericardial effusion
Continuing with IV Lasix 20 mg daily
-V. tach cardiac arrest with CPR: Monitoring
Chest x-ray did not show any osseous abnormality
Weaned off pressure support
Head CT shows atrophy and EEG showed diffuse cortical dysfunction without focal abnormality and no seizure activity
Patient is extubated and off sedation
-Sepsis, secondary to COVID-19 infection: Stable
Patient was febrile for several days without an elevated white count. Initially this was thought to be a propofol reaction versus a bacterial infection however repeat COVID test on 03/28/2024 was positive. Patient was hypothermic at 96.6 �F,
tachycardic at 102 suggesting that COVID-19 was the causative factor.
Patient has completed Zosyn. Finished 1 dose of Decadron and 5 days of remdesivir
-Superficial venous thrombus: Monitoring
Swelling in left arm near peripheral line
Ultrasound confirmed left basilic vein thrombosis�line removed�will observe
-Hyponatremia: Resolved
Assess volume status and replete as needed
-Hyperbilirubinemia: Resolved
A possible component of hemolysis versus Gilbert's disease.
Continue to monitor
-Transaminitis likely secondary due to alcoholic fatty liver with possible compounding shock liver: Resolved
Patient had an elevated AST and ALT on admission with a ratio of 2:1
Has a history of alcohol use and obesity
-Lactic acidemia: Resolved
Was elevated immediately following his cardiac arrest. Has come back down.
-Asthma: Stable
Continue to monitor
-Bipolar disorder: Stable
Patient's mother states that he used to be on Lexapro but stopped on his own due to weight gain. Appreciate psychiatry consult. Psychiatry is under the impression that the patient's encephalopathy is due to a lot more than alcohol withdrawal.
Note that he had atrophy on his CAT scan well before he came to [facility] and notes numerous comorbidities including cardiac arrest which they believe are contributing to his cognitive decline. They recommended staying away from sedating
meds as much as possible. They also noted to be aware of IV Haldol usage as the patient had a prolonged QTc earlier in the admission.
Diet - IDDSI-6
DVT Ppx - SCDs
GI Ppx - Lansoprazole 30 BID
Code Status - Full Code
Imaging:
Brain MRI on 04/11/2024: No MRI evidence for acute infarct. Bilateral mastoid effusions. Moderate age-related parenchymal atrophy. No masslike effect, midline shift, or extra-axial collection.
Anticipated Discharge: 24 - 48 hours
Subjective/Interval History
-
Met with patient at the bedside. There is substantial improvement in the patient's mental status from yesterday. The patient is aware of who he is, where he is, but was uncertain about the date. The patient's speech is more clear and coherent.
Spoke with family about possible need for acute rehab as per recommendations from the most recent PT evaluation. Patient had a moment of chest tightness following a bowel movement. The episode subsided within 20 minutes. EKG ordered showed atrial
fibrillation which was unchanged from his prior EKG.
Objective Data
-
Vital Signs:
Vital Signs
Temp Pulse Resp BP Pulse Ox
98.4 F 98 17 128/88 98
04/14/24 03:05 04/14/24 03:05 04/14/24 03:05 04/14/24 03:05 04/14/24 03:05
I&O
04/13/24 04/14/24 04/15/24
06:59 06:59 06:59
Intake Total 360 / 360 2400 / 2400
Output Total 525 / 525 1405 / 1405
Balance -165 / -165 995 / 995
Review of Systems
-
History Source: Patient
Constitutional: Reports No Symptoms
EENT: Reports No Symptoms Reported
Respiratory: Reports No Symptoms
Cardiac: Reports Other (Mild chest tightness)
Abdomen/GI: Reports No Symptoms
Breast: Reports No Symptoms
Genitourinary: Reports No Symptoms
Musculoskeletal: Reports No Symptoms
Skin: Reports No Symptoms
Neuro: Reports No Symptoms
Endocrine: Reports No Symptoms
Physical Exam
-
General: Well Developed, Well Nourished, No Apparent Distress and Comfortable
HEENT: Normocephalic, Atraumatic and Moist Mucous Membranes
Respiratory: Clear to Auscultation
Cardiac: S1/S2; Negative JVD
Breast: Deferred by me
GI: Soft, Nontender, Nondistended and Normal Bowel Sounds
Musculoskeletal: No Clubbing, No Cyanosis and No Edema
Skin: Warm and Dry
Neuro: Awake, Alert, Oriented and AO x 3
Psych: Calm
[2024-04-14] MEDS: FEOSOL 325 MG PO (07:52)
[2024-04-14] MEDS: TOPROL XL 100 MG PO ×2 (07:52→20:59)
[2024-04-14] MEDS: ALDACTONE 25 MG PO (07:53)
[2024-04-14] MEDS: SEROQUEL 100 MG PO ×2 (07:53→20:56)
[2024-04-14] MEDS: FARXIGA 10 MG PO (07:53)
[2024-04-14] MEDS: ELIQUIS 5 MG PO ×2 (07:53→20:56)
[2024-04-14] MEDS: ENTRESTO 24 MG/26 MG 1 TAB PO ×2 (07:53→20:56)
[2024-04-14] MEDS: LASIX 20 MG PO (07:53)
[2024-04-14] MEDS: PROTONIX 40 MG PO ×2 (07:53→20:56)
[2024-04-14] MEDS: FOLVITE 1 MG PO (07:53)
[2024-04-14] MEDS: VITAMIN B1 100 MG PO ×2 (07:53→20:56)
[2024-04-14] MEDS: DESENEX/MITRAZOL/ZEASORB 1 APPLIC TOPICAL (07:53)
[2024-04-14 08:14] LABS: Glucose - Point of Care 133 mg/dl (70-99)
--- NOTE | 2024-04-14 09:21 | PTCARENOTE ---
pt c/o chest pain while with 1:1, unable to elabore or describe in further detail. Resident aware, ekg unchanged
[2024-04-14 10:40] LABS: Hematocrit 36.8 % (39.0-52.0); Hemoglobin 11.3 g/dL (13.0-18.0); Mean Corp Hgb Conc. 30.7 g/dL (33.0-37.0); Mean Corpuscular Hgb 26.9 pg (27.0-31.0); Mean Corpuscular Volume 87.6 fL (80.0-94.0); Mean Platelet Volume 10.2 fL (7.4-10.4); Platelet Count 498 10^3/uL (130-400); Red Cell Dist. Width 15.1 % (11.5-14.5); White Blood Cell Count 6.3 10^3/uL (4.8-10.8)
[2024-04-14] MEDS: LANOXIN 250 MCG PO (11:36)
[2024-04-14 13:26] LABS: ALT (SGPT) 43 U/L (0-50); AST (SGOT) 47 U/L (17-59); Albumin 3.9 g/dl (3.5-5.0); Alkaline Phosphatase 168 U/L (38-126); Blood Urea Nitrogen 11 mg/dl (9-20); Calcium 9.1 mg/dl (8.4-10.2); Carbon Dioxide 24 mmol/L (22-30); Chloride 102 mmol/L (98-107); Estimated Creatinine Clearance > 125 ml/min; Glucose 86 mg/dl (70-99); Magnesium 1.9 mg/dl (1.6-2.3); Potassium 4.7 mmol/L (3.5-5.1); Sodium 137 mmol/L (135-145); Total Bilirubin 0.8 mg/dl (0.2-1.3); Total Protein 6.7 g/dl (6.3-8.2); eGFR > 60.00
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
--- NOTE | 2024-04-14 14:49 | CM ---
Patient seen at bedside with physicians and mother. Patient mother upset at CM due to patient having been DNR in past. Physician spoke with patient mother and reviewed possibility of consult to [facility] to determine if patient would be a appropriate to
consider Acute Rehab. CM will continue to follow for discharge planning needs.
Plan; Acute rehab vs SNF
[2024-04-14] MEDS: ATIVAN 1 MG IV (20:05)
[2024-04-14] MEDS: DESENEX/MITRAZOL/ZEASORB TOPICAL (21:23)
--- NOTE | 2024-04-14 21:57 | PTCARENOTE ---
Behavior Note:
Pt is often anxious and is then motivated to get up and go do the task he has in mind. often fixated on his mother or attending and event. Pt is redirectable and cooperative with care helping when asked. Pt is agreeable to follow direction in the
immediate future. Pt has issues with short or long-term retention.
[2024-04-15] MEDS: ATIVAN 1 MG IV ×2 (01:40→13:29)
[2024-04-15 06:00] VITALS: BMI 32.5
[2024-04-15 06:25] LABS: Hematocrit 35.1 % (39.0-52.0); Hemoglobin 11.1 g/dL (13.0-18.0); Mean Corp Hgb Conc. 31.6 g/dL (33.0-37.0); Mean Corpuscular Volume 85.4 fL (80.0-94.0); Platelet Count 564 10^3/uL (130-400); Red Blood Cell Count 4.11 10^6/uL (4.70-6.10); White Blood Cell Count 6.6 10^3/uL (4.8-10.8)
[2024-04-15 06:45] LABS: ALT (SGPT) 47 U/L (0-50); AST (SGOT) 49 U/L (17-59); Albumin 4.1 g/dl (3.5-5.0); Alkaline Phosphatase 169 U/L (38-126); Blood Urea Nitrogen 11 mg/dl (9-20); Calcium 9.5 mg/dl (8.4-10.2); Carbon Dioxide 24 mmol/L (22-30); Chloride 103 mmol/L (98-107); Estimated Creatinine Clearance > 125 ml/min; Glucose 98 mg/dl (70-99); Magnesium 1.9 mg/dl (1.6-2.3); Potassium 4.4 mmol/L (3.5-5.1); Sodium 138 mmol/L (135-145); Total Bilirubin 0.8 mg/dl (0.2-1.3); Total Protein 6.9 g/dl (6.3-8.2); eGFR > 60.00
--- NOTE | 2024-04-15 07:25 | W.PN.HOSP.TC ---
Addendum entered and electronically signed by Elis Tracy MD 04/15/24 16:34:
I saw and evaluated the patient independently. I reviewed the resident�s note and agree with findings and plan as documented by Dr. Cadena.
GENERAL: well developed, well nourished, male, much improved but still not at baseline cognitively--was seen walking around the unit with therapy and a walker
HEENT: NC/AT--no O2 requirements
HEART: irreg irreg
LUNGS : clear to auscultation bilaterally
ABDOM: soft, nontender, nondistended, + bowel sounds
EXT: no cyanosis, clubbing, or edema
NEUROLOGIC: confused
Persistent encephalopathy-- suspect combination of Wernicke's encephalopathy from long-term alcohol dependence/use plus anoxic injury from PEA arrest (acting like brain injury)--cont thiamine/folate--maintain abstinence from ETOH--time will tell if
improvement will be had--ammonia level WNL--cont seroquel and decrease haldol prn--MRI noted--apprec psych--await PM&R eval
Alcohol Use Disorder w/possible withdrawal seizure- MSAS protocol. Thiamine and Folic acid, Ativan per protocol. Finished phenobarb taper.
Anemia likely acute from blood loss (epistaxis/GI bleed) in combination from Eliquis, with iron deficiency component--s/p pRBC--HGB stable--cont protonix
Dysphagia -diet per speech therapy
Persistent Afib-- Off cardizem drip. On Digoxin PO. Lopressor 50 Q6--Eliquis restarted--apprec cards--no plans for procedures at this point
Hypertension, primary vs. secondary- -cont lisinopril 20 bid
Acute on chronic HFrEF - Echo showing EF of 30-35% with global hypokinesis w/ small pericardial effusion--lasix
Resolved acute issues:
Vtach Cardiac Arrest w/ CPR--TTM not initiated due to UGI bleed. Weaned off pressure supports. Head CT showed atrophy and EEG showed diffuse cortical dysfunction without focal abnormality and no seizure activity- Extubated, off sedation
Sepsis, likely secondary to COVID-19 Infection- Febrile for several days without white count, initially thought propofol rxn vs. bacterial infection, however repeat covid test on 03/28/24 positive. Hypothermic 96.6 F, tachycardic 102, source of
infection COVID 19--finished zosyn/decadron/Remdesivir
Superficial Venous Thrombus - swelling in L arm near peripheral line, US confirmed L basilic vein thrombosis. Line removed--back on Eliquis
Upper GI Bleed w/ Epistaxis (resolved)- S/p 1u pRBCs. s/p TXA & cauterization for epistaxis. No signs of active bleeding on exam. Nasal packing removed. Will continue to monitor H&H. Transfuse if hgb <7.
Elevated Glucose (resolved)
Hyponatremia (resolved) - Off fluids. Assess volume status and replete as needed.
Hyperbilirubinemia (resolved) - possible component of hemolysis vs. Gilbert's Disease. Resolved now.
Transaminitis, likely alcoholic fatty liver, possible compounding shock liver (resolved) - Elevated AST/ALT on admission 2:1. history of alcohol use and obesity, possible chronic elevation from fatty liver vs. shock liver. AST/ALT normalized. Will
continue to monitor.
Lactic Acidemia (resolved) - was elevated immediately post cardiac arrest, has come back down. Blood gas showed metabolic acidosis without respiratory compensation; now normal pH.
Elevated troponins (resolved)- peaked, likely secondary to cardiac arrest.
Possible Aspiration Pneumonia, seen on admission (resolved as of 03/28/24)- Blood cx 03/27 NGTD x 48hrs, sputum cx showing usual yvette. COVID/Flu on admission negative. Completed IV Abx through 03/28.
Tracheitis-- Tracheal aspirate cx growing MSSA--no pna- finished Cefazolin course
Chronic stable conditions:
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 sleep apnea vs. worsening Asthma, however history uncertain
Bipolar Disorder--- patient's mother states he was on Lexapro but stopped on his own due to weight gain--cont seroquel and PRN haldol, dose reduced
DVT proph
CODE STATUS -- full code--was DNR on admission--revoked by pt Mother
PT/OT--consult Physiatry--await input--d/c planning
Original Note:
Today's Communication/Plan
-
Awaiting evaluation from physiatry in regards to this patient's potential placement in an acute rehab facility such as [facility]. The patient would greatly benefit from receiving this rehabilitation and would give the patient a better chance at
continuing his daily activities of living. Spoke to the mother and patient yesterday about putting in a consult for physiatry and they were amenable. Mother hopes that he will be placed in a location nearby to her and understands that staff will
do their best to accommodate the the patient and family wishes. After evaluation from physiatry we will continue to move forward with discharge planning.
Assessment / Plan
Assessment / Plan
Assessment/plan:
-Persistent altered mental status possibly due to Wernicke's encephalopathy secondary to long-term alcohol dependence: Improving
The patient has been getting thiamine and folate since his admission
Continue Ativan as per protocol
Continue Seroquel 100 mg p.o. twice daily
Patient is no longer sedated and is extubated
MRI conducted on 04/11/2024 showed moderate age-related parenchymal atrophy. No MRI evidence for an acute infarct. Bilateral mastoid effusions. No mass effect, midline shift or extra-axial collection no abnormal signal intensity on
diffusion-weighted images.
Status unchanged from 04/13/2024
Haldol dosage was reduced to 1 mg IV every 8 hours as needed after recommendations from psychiatry. The patient is much more clear after this medication adjustment.
-Alcohol use disorder with possible withdrawal seizure - Monitoring
On 03/24/2024 the patient was seen with seizure-like activity before becoming unresponsive requiring ACLS
MSAS protocol
Continue thiamine and folic acid with Ativan as per protocol.
Phenobarbital taper completed.
Ammonia level less than 9
-Ambulatory Dysfunction:
Patient is much clearer on 04/14/2024 but remains unable to be steady on his feet.
PT OT evaluation recommends that the patient receive acute rehab upon discharge.
Consulted physiatry for evaluation for acute rehab placement. Awaiting evaluation.
-Hyperkalemia:
Potassium is 5.3 on 04/13/2024
The slight elevation may be due to lysis during blood draw -will recheck on next draw
-Persistent atrial fibrillation: Monitoring
Patient is on Toprol-XL 100 mg twice daily
Patient currently on digoxin 250 mcg -check digoxin levels on the day of discharge and again 1 month after discharge
Cardiology restarted benazepril on 04/12/2024
Cardiology recommends avoiding usage calcium channel blockers if possible given reduced left ventricular ejection fraction
Sacubitril/valsartan 24 mg / 26 mg twice daily started
Patient is still scheduled for PVI on May 2024
-Anemia, multifactorial with iron deficiency: Stable
On a PPI with lansoprazole
Persistently low hemoglobin around 9 despite no obvious signs of bleed
Iron, iron saturation, and ferritin were low on prior labs. Continue oral iron
-Essential hypertension:
Continue metoprolol tartarate 5 mg IV every 4 hours as needed
Continue metoprolol succinate 100 mg p.o. twice daily
-Dysphagia: Stable
Cleared for IDDSI�6 diet by speech therapy
-Tracheitis: Stable
Tracheal aspirate culture sample grew MSSA
Finished cefazolin course
-Acute on chronic HFrEF: Stable
Prior echo shows ejection fraction of 30 to 35% with global hypokinesis and small pericardial effusion
Continuing with IV Lasix 20 mg daily
-V. tach cardiac arrest with CPR: Monitoring
Chest x-ray did not show any osseous abnormality
Weaned off pressure support
Head CT shows atrophy and EEG showed diffuse cortical dysfunction without focal abnormality and no seizure activity
Patient is extubated and off sedation
-Sepsis, secondary to COVID-19 infection: Stable
Patient was febrile for several days without an elevated white count. Initially this was thought to be a propofol reaction versus a bacterial infection however repeat COVID test on 03/28/2024 was positive. Patient was hypothermic at 96.6 �F,
tachycardic at 102 suggesting that COVID-19 was the causative factor.
Patient has completed Zosyn. Finished 1 dose of Decadron and 5 days of remdesivir
-Superficial venous thrombus: Monitoring
Swelling in left arm near peripheral line
Ultrasound confirmed left basilic vein thrombosis�line removed�will observe
-Hyponatremia: Resolved
Assess volume status and replete as needed
-Hyperbilirubinemia: Resolved
A possible component of hemolysis versus Gilbert's disease.
Continue to monitor
-Transaminitis likely secondary due to alcoholic fatty liver with possible compounding shock liver: Resolved
Patient had an elevated AST and ALT on admission with a ratio of 2:1
Has a history of alcohol use and obesity
-Lactic acidemia: Resolved
Was elevated immediately following his cardiac arrest. Has come back down.
-Asthma: Stable
Continue to monitor
-Bipolar disorder: Stable
Patient's mother states that he used to be on Lexapro but stopped on his own due to weight gain. Appreciate psychiatry consult. Psychiatry is under the impression that the patient's encephalopathy is due to a lot more than alcohol withdrawal.
Note that he had atrophy on his CAT scan well before he came to [facility] and notes numerous comorbidities including cardiac arrest which they believe are contributing to his cognitive decline. They recommended staying away from sedating
meds as much as possible. They also noted to be aware of IV Haldol usage as the patient had a prolonged QTc earlier in the admission.
Diet - IDDSI-6
DVT Ppx - SCDs
GI Ppx - Lansoprazole 30 BID
Code Status - Full Code
Imaging:
Brain MRI on 04/11/2024: No MRI evidence for acute infarct. Bilateral mastoid effusions. Moderate age-related parenchymal atrophy. No masslike effect, midline shift, or extra-axial collection.
Anticipated Discharge: 24 - 48 hours
Subjective/Interval History
-
Met with patient at the bedside. He is calm and polite in conversation though he continues to show confusion and makes incoherent statements. Patient asked me whether I found clothing for 'her' yet I am uncertain as to who he is referring to.
Staff reports that he is had moments of agitation and received Haldol shortly prior to me meeting with him at the bedside. Patient and family are aware that physiatry consult has been placed and that he will be evaluated for whether he is a
candidate for placement in an acute rehab facility such as [facility].
Objective Data
-
Labs:
Laboratory Results
04/15/24
05:42
WBC 6.6
Hgb 11.1 L
Hct 35.1 L
Plt Count 564 H
Sodium 138
Potassium 4.4
Chloride 103
Carbon Dioxide 24
BUN 11
Creatinine 0.8
Glucose 98
Calcium 9.5
Total Bilirubin 0.8
AST 49
ALT 47
Alkaline Phosphatase 169 H
Vital Signs:
Vital Signs
Temp Pulse Resp BP Pulse Ox
98.2 F 88 16 97/61 96
04/14/24 23:10 04/14/24 23:10 04/14/24 23:10 04/14/24 23:10 04/14/24 23:10
I&O
04/14/24 04/15/24 04/16/24
06:59 06:59 06:59
Intake Total 2400 / 2400 2880 / 2880
Output Total 1405 / 1405 2425 / 2425
Balance 995 / 995 455 / 455
Review of Systems
-
History Source: Patient
Constitutional: Reports No Symptoms
EENT: Reports No Symptoms Reported
Respiratory: Reports No Symptoms
Cardiac: Reports No Symptoms
Abdomen/GI: Reports No Symptoms
Breast: Reports No Symptoms
Genitourinary: Reports No Symptoms
Musculoskeletal: Reports Muscle Weakness
Skin: Reports No Symptoms
Endocrine: Reports No Symptoms
Hematologic / Lymphatic: Reports No Symptoms
Allergy / Immunology: Reports No Symptoms
Physical Exam
-
General: Well Developed, Well Nourished and No Apparent Distress
HEENT: Normocephalic and Atraumatic
Respiratory: Clear to Auscultation
Cardiac: S1/S2; Negative JVD
Breast: Deferred by me
GI: Soft, Nontender, Nondistended and Normal Bowel Sounds
Rectal: Deferred by Provider
Genito-urinary: Deferred by me
Musculoskeletal: No Clubbing, No Cyanosis and No Edema
Skin: Warm and Dry
Neuro: Awake and Alert
Psych: Calm
[2024-04-15 07:39] VITALS: BP 114/90
[2024-04-15] MEDS: HALDOL 1 MG IV (08:32)
[2024-04-15] MEDS: VITAMIN B1 100 MG PO ×2 (08:49→20:02)
[2024-04-15] MEDS: TOPROL XL 100 MG PO ×2 (08:49→20:09)
[2024-04-15] MEDS: FEOSOL 325 MG PO (08:49)
[2024-04-15] MEDS: PROTONIX 40 MG PO ×2 (08:49→20:03)
[2024-04-15] MEDS: FOLVITE 1 MG PO (08:49)
[2024-04-15] MEDS: FARXIGA 10 MG PO (08:49)
[2024-04-15] MEDS: ELIQUIS 5 MG PO ×2 (08:49→20:02)
[2024-04-15] MEDS: SEROQUEL 100 MG PO ×2 (08:49→20:03)
[2024-04-15] MEDS: ENTRESTO 24 MG/26 MG 1 TAB PO ×2 (08:49→20:10)
[2024-04-15] MEDS: LASIX 20 MG PO (08:50)
[2024-04-15] MEDS: ALDACTONE 25 MG PO (08:50)
[2024-04-15] MEDS: DESENEX/MITRAZOL/ZEASORB 1 APPLIC TOPICAL (08:52)
[2024-04-15 11:36] VITALS: BP 107/76
[2024-04-15] MEDS: LANOXIN 250 MCG PO (11:58)
[2024-04-15] MEDS: NSS (PRESERVATIVE FREE) 0.5 ML IV (13:29)
[2024-04-15 16:00] VITALS: BP 100/59
--- NOTE | 2024-04-15 16:35 | CM ---
Patient walking in hallway with 2 therapist and walker. Awaiting PM&R assessment/ [facility] evaluation vs SNF. Patient may need level II if he needs SNF. CM will continue to follow for discharge planning needs.
Plan; SNF vs Acute rehab
[2024-04-15] MEDS: HALDOL IV (18:04)
[2024-04-15 19:00] VITALS: BP 99/67
[2024-04-15] MEDS: DESENEX/MITRAZOL/ZEASORB TOPICAL (20:11)
[2024-04-15 23:25] VITALS: BP 120/68
[2024-04-16] MEDS: HALDOL 1 MG IV (01:24)
[2024-04-16] MEDS: FLUSH (NSS) 2 FLUSH IV ×2 (01:25→04:45)
[2024-04-16 03:07] VITALS: BP 108/70
[2024-04-16] MEDS: ATIVAN 1 MG IV ×2 (04:43→18:04)
[2024-04-16] MEDS: NSS (PRESERVATIVE FREE) 0.5 ML IV ×2 (04:43→18:05)
[2024-04-16 05:38] VITALS: BMI 32.7
[2024-04-16 07:16] VITALS: BP 114/64
--- NOTE | 2024-04-16 07:24 | W.PN.HOSP.TC ---
Addendum entered and electronically signed by Elis Tracy MD 04/16/24 14:21:
I saw and evaluated the patient independently. I reviewed the resident�s note and agree with findings and plan as documented by Dr. Cadena.
GENERAL: well developed, well nourished, male, much improved but still not at baseline cognitively
HEENT: NC/AT--no O2 requirements
HEART: irreg irreg
LUNGS : clear to auscultation bilaterally
ABDOM: soft, nontender, nondistended, + bowel sounds
EXT: no cyanosis, clubbing, or edema
NEUROLOGIC: confused
Persistent encephalopathy-- suspect combination of Wernicke's encephalopathy from long-term alcohol dependence/use plus anoxic injury from PEA arrest (acting like brain injury)--cont thiamine/folate--maintain abstinence from ETOH--time will tell if
improvement will be had--ammonia level WNL--cont seroquel and decrease haldol prn--MRI noted--apprec psych--await PM&R eval
Alcohol Use Disorder w/possible withdrawal seizure- MSAS protocol. Thiamine and Folic acid, Ativan per protocol. Finished phenobarb taper.
Anemia likely acute from blood loss (epistaxis/GI bleed) in combination from Eliquis, with iron deficiency component--s/p pRBC--HGB stable--cont protonix
Dysphagia -diet per speech therapy
Persistent Afib-- Off cardizem drip. On Digoxin PO. Lopressor 50 Q6--Eliquis restarted--apprec cards--no plans for procedures at this point
Hypertension, primary vs. secondary- -cont lisinopril 20 bid
Acute on chronic HFrEF - Echo showing EF of 30-35% with global hypokinesis w/ small pericardial effusion--lasix
Resolved acute issues:
Vtach Cardiac Arrest w/ CPR--TTM not initiated due to UGI bleed. Weaned off pressure supports. Head CT showed atrophy and EEG showed diffuse cortical dysfunction without focal abnormality and no seizure activity- Extubated, off sedation
Sepsis, likely secondary to COVID-19 Infection- Febrile for several days without white count, initially thought propofol rxn vs. bacterial infection, however repeat covid test on 03/28/24 positive. Hypothermic 96.6 F, tachycardic 102, source of
infection COVID 19--finished zosyn/decadron/Remdesivir
Superficial Venous Thrombus - swelling in L arm near peripheral line, US confirmed L basilic vein thrombosis. Line removed--back on Eliquis
Upper GI Bleed w/ Epistaxis (resolved)- S/p 1u pRBCs. s/p TXA & cauterization for epistaxis. No signs of active bleeding on exam. Nasal packing removed. Will continue to monitor H&H. Transfuse if hgb <7.
Elevated Glucose (resolved)
Hyponatremia (resolved) - Off fluids. Assess volume status and replete as needed.
Hyperbilirubinemia (resolved) - possible component of hemolysis vs. Gilbert's Disease. Resolved now.
Transaminitis, likely alcoholic fatty liver, possible compounding shock liver (resolved) - Elevated AST/ALT on admission 2:1. history of alcohol use and obesity, possible chronic elevation from fatty liver vs. shock liver. AST/ALT normalized. Will
continue to monitor.
Lactic Acidemia (resolved) - was elevated immediately post cardiac arrest, has come back down. Blood gas showed metabolic acidosis without respiratory compensation; now normal pH.
Elevated troponins (resolved)- peaked, likely secondary to cardiac arrest.
Possible Aspiration Pneumonia, seen on admission (resolved as of 03/28/24)- Blood cx 03/27 NGTD x 48hrs, sputum cx showing usual yvette. COVID/Flu on admission negative. Completed IV Abx through 03/28.
Tracheitis-- Tracheal aspirate cx growing MSSA--no pna- finished Cefazolin course
Chronic stable conditions:
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 sleep apnea vs. worsening Asthma, however history uncertain
Bipolar Disorder--- patient's mother states he was on Lexapro but stopped on his own due to weight gain--cont seroquel and PRN haldol, dose reduced
DVT proph
CODE STATUS -- full code--was DNR on admission--revoked by pt Mother
PT/OT--consult Physiatry--await input--d/c planning
Original Note:
Today's Communication/Plan
-
We continue to await evaluation from physiatry in regards to the patient's potential placement in acute rehab facility such as [facility]. After evaluation and recommendations from physiatry we will continue to move forward with discharge planning.
Assessment / Plan
Assessment / Plan
Assessment/plan:
-Persistent altered mental status possibly due to Wernicke's encephalopathy secondary to long-term alcohol dependence: Improving
The patient has been getting thiamine and folate since his admission
Continue Ativan as per protocol
Continue Seroquel 100 mg p.o. twice daily
Patient is no longer sedated and is extubated
MRI conducted on 04/11/2024 showed moderate age-related parenchymal atrophy. No MRI evidence for an acute infarct. Bilateral mastoid effusions. No mass effect, midline shift or extra-axial collection no abnormal signal intensity on
diffusion-weighted images.
Status unchanged from 04/13/2024
Haldol dosage was reduced to 1 mg IV every 8 hours as needed after recommendations from psychiatry. The patient is much more clear after this medication adjustment.
-Alcohol use disorder with possible withdrawal seizure - Monitoring
On 03/24/2024 the patient was seen with seizure-like activity before becoming unresponsive requiring ACLS
MSAS protocol
Continue thiamine and folic acid with Ativan as per protocol.
Phenobarbital taper completed.
Ammonia level less than 9
-Ambulatory Dysfunction:
Patient is much clearer on 04/14/2024 but remains unable to be steady on his feet.
PT OT evaluation recommends that the patient receive acute rehab upon discharge.
Consulted physiatry for evaluation for acute rehab placement. Awaiting evaluation...
-Hyperkalemia:
Potassium is 5.3 on 04/13/2024
The slight elevation may be due to lysis during blood draw -will recheck on next draw
-Persistent atrial fibrillation: Monitoring
Patient is on Toprol-XL 100 mg twice daily
Patient currently on digoxin 250 mcg -check digoxin levels on the day of discharge and again 1 month after discharge
Cardiology restarted benazepril on 04/12/2024
Cardiology recommends avoiding usage calcium channel blockers if possible given reduced left ventricular ejection fraction
Sacubitril/valsartan 24 mg / 26 mg twice daily started
Patient is still scheduled for PVI on May 2024
-Anemia, multifactorial with iron deficiency: Stable
On a PPI with lansoprazole
Persistently low hemoglobin around 9 despite no obvious signs of bleed
Iron, iron saturation, and ferritin were low on prior labs. Continue oral iron
-Essential hypertension:
Continue metoprolol tartarate 5 mg IV every 4 hours as needed
Continue metoprolol succinate 100 mg p.o. twice daily
-Dysphagia: Stable
Cleared for IDDSI�6 diet by speech therapy
-Tracheitis: Stable
Tracheal aspirate culture sample grew MSSA
Finished cefazolin course
-Acute on chronic HFrEF: Stable
Prior echo shows ejection fraction of 30 to 35% with global hypokinesis and small pericardial effusion
Continuing with IV Lasix 20 mg daily
-V. tach cardiac arrest with CPR: Monitoring
Chest x-ray did not show any osseous abnormality
Weaned off pressure support
Head CT shows atrophy and EEG showed diffuse cortical dysfunction without focal abnormality and no seizure activity
Patient is extubated and off sedation
-Sepsis, secondary to COVID-19 infection: Stable
Patient was febrile for several days without an elevated white count. Initially this was thought to be a propofol reaction versus a bacterial infection however repeat COVID test on 03/28/2024 was positive. Patient was hypothermic at 96.6 �F,
tachycardic at 102 suggesting that COVID-19 was the causative factor.
Patient has completed Zosyn. Finished 1 dose of Decadron and 5 days of remdesivir
-Superficial venous thrombus: Monitoring
Swelling in left arm near peripheral line
Ultrasound confirmed left basilic vein thrombosis�line removed�will observe
-Hyponatremia: Resolved
Assess volume status and replete as needed
-Hyperbilirubinemia: Resolved
A possible component of hemolysis versus Gilbert's disease.
Continue to monitor
-Transaminitis likely secondary due to alcoholic fatty liver with possible compounding shock liver: Resolved
Patient had an elevated AST and ALT on admission with a ratio of 2:1
Has a history of alcohol use and obesity
-Lactic acidemia: Resolved
Was elevated immediately following his cardiac arrest. Has come back down.
-Asthma: Stable
Continue to monitor
-Bipolar disorder: Stable
Patient's mother states that he used to be on Lexapro but stopped on his own due to weight gain. Appreciate psychiatry consult. Psychiatry is under the impression that the patient's encephalopathy is due to a lot more than alcohol withdrawal.
Note that he had atrophy on his CAT scan well before he came to [facility] and notes numerous comorbidities including cardiac arrest which they believe are contributing to his cognitive decline. They recommended staying away from sedating
meds as much as possible. They also noted to be aware of IV Haldol usage as the patient had a prolonged QTc earlier in the admission.
Diet - IDDSI-6
DVT Ppx - SCDs
GI Ppx - Lansoprazole 30 BID
Code Status - Full Code
Imaging:
Brain MRI on 04/11/2024: No MRI evidence for acute infarct. Bilateral mastoid effusions. Moderate age-related parenchymal atrophy. No masslike effect, midline shift, or extra-axial collection.
Anticipated Discharge: 24 - 48 hours
Subjective/Interval History
-
Met with patient at the bedside. He was seen sitting up in bed watching television. He is clearer than he was yesterday by marginal amount. When asked about supports he said that he does not really like football in comparison to other sports. It
appears that he has a logical pattern and is able to participate in conversation much better.
Objective Data
-
Labs:
Labs
04/16/24 07:28
04/16/24 07:28
Vital Signs:
Vital Signs
Temp Pulse Resp BP Pulse Ox
99.3 F 77 17 114/64 97
04/16/24 07:16 04/16/24 07:16 04/16/24 07:16 04/16/24 07:16 04/16/24 07:16
I&O
04/15/24 04/16/24 04/17/24
06:59 06:59 06:59
Intake Total 2880 / 2880 1290 / 1290
Output Total 2425 / 2425
Balance 455 / 455 1290 / 1290
Review of Systems
-
History Source: Patient
All other systems: Reviewed and negative
Constitutional: Reports No Symptoms
EENT: Reports No Symptoms Reported
Respiratory: Reports No Symptoms
Cardiac: Reports No Symptoms
Abdomen/GI: Reports No Symptoms
Breast: Reports No Symptoms
Genitourinary: Reports No Symptoms
Musculoskeletal: Reports No Symptoms
Skin: Reports No Symptoms
Neuro: Reports No Symptoms
Endocrine: Reports No Symptoms
Hematologic / Lymphatic: Reports No Symptoms
Physical Exam
-
General: Well Developed, Well Nourished, No Apparent Distress and Comfortable
HEENT: Normocephalic, Atraumatic and Moist Mucous Membranes
Respiratory: Clear to Auscultation
Cardiac: S1/S2; Negative JVD or Carotid Bruits
Breast: Deferred by me
GI: Soft, Nontender, Nondistended and Normal Bowel Sounds
Rectal: Deferred by Provider
Genito-urinary: Deferred by me
Musculoskeletal: No Clubbing, No Cyanosis and No Edema
Skin: Warm and Dry
Neuro: Awake, Alert and Oriented
Psych: Calm
[2024-04-16] MEDS: FEOSOL 325 MG PO (08:15)
[2024-04-16] MEDS: SEROQUEL 100 MG PO ×2 (08:15→20:22)
[2024-04-16] MEDS: PROTONIX 40 MG PO ×2 (08:15→20:22)
[2024-04-16] MEDS: VITAMIN B1 100 MG PO ×2 (08:15→20:22)
[2024-04-16] MEDS: FOLVITE 1 MG PO (08:15)
[2024-04-16] MEDS: FARXIGA 10 MG PO (08:15)
[2024-04-16] MEDS: ENTRESTO 24 MG/26 MG 1 TAB PO (08:15)
[2024-04-16] MEDS: ELIQUIS 5 MG PO ×2 (08:16→20:22)
[2024-04-16] MEDS: ALDACTONE 25 MG PO (08:16)
[2024-04-16] MEDS: TOPROL XL 100 MG PO (08:16)
[2024-04-16] MEDS: LASIX 20 MG PO (08:16)
[2024-04-16] MEDS: DESENEX/MITRAZOL/ZEASORB 1 APPLIC TOPICAL ×2 (08:17→20:23)
--- NOTE | 2024-04-16 08:23 | PTCARENOTE ---
Patient agitated and uncooperative. Patient refusing to keep tele monitor. Patient removed tele monitor multiple times. Patient impulsive and demanding to leave the room. 1:1 with patient and ambulated a short distance with walker. Patient is not
easily redirected. Conversations are confused at times and sometimes patient follows commands and anweres questions appropriately. His mom is at bedside.
[2024-04-16 08:45] LABS: Hemoglobin 11.1 g/dL (13.0-18.0); Mean Corp Hgb Conc. 31.7 g/dL (33.0-37.0); Mean Corpuscular Volume 85.2 fL (80.0-94.0); Mean Platelet Volume 10.4 fL (7.4-10.4); Platelet Count 544 10^3/uL (130-400); Red Blood Cell Count 4.11 10^6/uL (4.70-6.10); Red Cell Dist. Width 15.2 % (11.5-14.5); White Blood Cell Count 6.2 10^3/uL (4.8-10.8)
[2024-04-16 09:34] LABS: ALT (SGPT) 45 U/L (0-50); AST (SGOT) 48 U/L (17-59); Albumin 4.5 g/dl (3.5-5.0); Alkaline Phosphatase 168 U/L (38-126); Blood Urea Nitrogen 10 mg/dl (9-20); Calcium 9.3 mg/dl (8.4-10.2); Carbon Dioxide 22 mmol/L (22-30); Chloride 100 mmol/L (98-107); Estimated Creatinine Clearance > 125 ml/min; Glucose 100 mg/dl (70-99); Magnesium 1.9 mg/dl (1.6-2.3); Phosphorus 5.2 mg/dl (2.5-4.5); Potassium 4.7 mmol/L (3.5-5.1); Sodium 137 mmol/L (135-145); Total Bilirubin 0.9 mg/dl (0.2-1.3); Total Protein 7.1 g/dl (6.3-8.2); eGFR > 60.00
[2024-04-16 11:30] VITALS: BP 130/88
--- NOTE | 2024-04-16 11:38 | CM ---
Addendum entered by Keeley Beasley 04/16/24 11:42:
patient 1:1
Original Note:
Called and spoke with Alyce at [facility]
Await PM&R eval - consult ordered
PT rec Acute vs. SNF
Patient may need level II if he needs SNF.
PLAN: Acute vs. SNF, await PM&R consult
[2024-04-16] MEDS: LANOXIN 250 MCG PO (13:03)
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
--- NOTE | 2024-04-16 15:41 | CON.MR ---
Consultation
Consultation Request
Date/Time Consultation Performed: 04/16/24
Performing Provider: Dr. Kendrick
Reason for Consultation: Encephalopathy
Medical History
-
Chief Complaint: Encephalopathy
History of Present Illness:
I had the opportunity to see Sarthak Voss in rehabilitation consultation today. This is a 38-year-old male non-smoker with a past medical history of persistent A-fib on Eliquis, bipolar affective disorder, alcohol use, asthma, and hypertension
who presented with vomiting blood 1 day prior to arrival with dark stools as well as a nosebleed. Had been on Eliquis with a history of nonischemic cardiomyopathy with prior EF of 20-25% with global hypokinesis from echo in December 2023.
Initial labs showed Hb 8.9, platelet count 115, sodium 123, chloride 87, BUN 33, serum osmolarity 302, and urinalysis negative for signs of UTI. Initial CXR showed suspected small right pleural effusion with possible pneumonia in the right middle
lobe. He was initially admitted to the IMU for a GI bleed with epistaxis. After admission he was agitated and required Precedex drip so was transferred to the ICU, and developed a cardiac arrest while trying to get up out of bed. Patient was
intubated, ROSC regained. Due to his prearrest seizure-like activity, neurology was called and empiric Keppra was given.
Notable hospital course with EF 30%, extubated 04/03, did have +COVID treated with decadron and remdesivir, hyponatremia - resolved, transaminitis. Has had significant agitation, confusion and head CT negative and brain MRI negative for infarction.
EEG was negative for seizure, but diffuse cortical dysfunction. Has required meds including some Haldol for agitation and confusion - but now tapering down prn. Still on 1:1 supervision due to confusion.
Patient seen this afternoon at bedside - still with 1:[address] Some confusion and mumbling and holding onto spiral bound notebook - wanted me to 'sign it'. Lying in bed but maybe a little restless. But does follow commands for me today. Denies
any pain, but states they gave him a 'string thing' today, but not sure what he was talking about.
Past medical history prior: Asthma, hypertension, A-fib, bipolar 1 disorder, alcohol disorder/abuse?
Social History
Functional Level Premorbidity:
Independent for all activities.
Current Funct Level: Ambulation, Transfer, UE/LE Dressing:
Transfers Min A, ambulated 150' with walker min A x2 but very impulsive, wide based gait and balance difficulties.
Living: With Family
Number of Floors: 2
Allergies / Home Medications
Allergy/AdvReac Type Severity Reaction Status Date / Time
pollen extracts Allergy seasonal Verified 03/23/24 18:20
allergy/Nasal
congestion
�Medication �Instructions �Recorded �Confirmed �Last Taken �Type
albuterol sulfate 90 mcg/actuation 2 puff inhalation Q8HPRN PRN sob 04/16/22 03/23/24 11/27/23 06:30 History
aerosol inhaler (Ventolin HFA)
apixaban 5 mg tablet (Eliquis) 5 mg PO BID Blood Clot 11/27/23 03/23/24 03/21/24 08:00 History
Prevention/Tx
diazepam 5 mg tablet 5 mg PO BID PRN anxiety 11/27/23 03/23/24 11/27/23 06:30 History
naphazoline-pheniramine 0.027 1 drp ophthalmic (eye) BIDPRN PRN 11/27/23 03/23/24 11/27/23 06:30 History
%-0.315 % eye drops eyes
omeprazole magnesium 20 mg 20 mg PO PRN PRN gerd 11/27/23 03/23/24 Unknown History
tablet,delayed release (Prilosec
OTC)
albuterol sulfate 2.5 mg/3 mL 2.5 mg (3 mL) inhalation Q4H PRN 03/04/24 03/23/24 Unknown Rx
(0.083 %) solution for nebulization shortness of breath or wheezing
#180 mL
benazepril 40 mg tablet 40 mg PO DAILY Blood Pressure 03/23/24 03/23/24 03/23/24 History
furosemide 20 mg tablet (Lasix) 20 mg PO DAILY Fluid 03/23/24 03/23/24 03/23/24 History
Retention/Swelling
metoprolol succinate 100 mg 100 mg PO BID Heart 03/23/24 03/23/24 03/23/24 History
tablet,extended release 24 hr Disease/Condition
Review Of Systems
-
Unable to obtain full review of systems at this time due to: Other (Confusion, agitation)
History Source: Patient
Constitutional: Reports No Symptoms
Eye: Reports No Symptoms
EENT: Reports No Symptoms
Respiratory: Reports No Symptoms
Cardiac: Reports No Symptoms
Abdomen/GI: Reports No Symptoms
: Reports No Symptoms
Musculoskeletal: Reports No Symptoms
Integumentary: Reports No Symptoms
Neurological: Reports No Symptoms
Psych: Reports No Symptoms
Endocrine: Reports No Symptoms
Hematologic/Lymphatic: Reports No Symptoms
Immunology: Reports No Symptoms
Physical Exam
Active Medications
Generic Name Dose Route Start Last Admin
Trade Name Freq PRN Reason Stop Dose Admin
Acetaminophen 650 mg 04/06/24 12:06 04/13/24 14:09
Acetaminophen 325 Mg Tablet PO 05/04/24 12:04 650 mg
Q4HPRN PRN Administration
fever>100.4/mild pain
Apixaban 5 mg 04/08/24 08:45 04/16/24 08:16
Apixaban (Eliquis) 5 Mg Tablet PO 05/06/24 08:44 5 mg
BID LAITH Administration
Dapagliflozin 10 mg 04/09/24 14:15 04/16/24 08:15
Dapagliflozin (Farxiga) 10 Mg Tablet PO 05/07/24 14:14 10 mg
DAILY LAITH Administration
Digoxin 250 mcg 04/09/24 12:00 04/16/24 13:03
Digoxin 250 Mcg Tablet PO 05/07/24 11:59 250 mcg
NOON LAITH Administration
Ferrous Sulfate 325 mg 04/09/24 08:00 04/16/24 08:15
Ferrous Sulfate 325 Mg Tablet PO 05/07/24 07:59 325 mg
DAILY LAITH Administration
Folic Acid 1 mg 03/24/24 08:00 04/16/24 08:15
Folic Acid 1 Mg Tablet PO 04/21/24 07:59 1 mg
DAILY LAITH Administration
Furosemide 20 mg 04/10/24 08:00 04/16/24 08:16
Furosemide 20 Mg Tablet PO 05/08/24 07:59 20 mg
DAILY LAITH Administration
Haloperidol Lactate 1 mg 04/13/24 15:50 04/16/24 01:24
Haloperidol 5 Mg/Ml 1 Ml Vial IV 05/11/24 15:47 1 mg
Q8HPRN PRN Administration
AGITATION
Folic Acid 1 mg/ Sodium 50.2 mls @ 200.8 mls/hr 03/24/24 02:08
Chloride IV 04/21/24 02:07
DAILYPRN PRN
if NPO
Lorazepam 1 mg 04/11/24 16:02 04/16/24 04:43
Lorazepam 2 Mg/Ml Vial IV 05/09/24 16:01 1 mg
Q4HPRN PRN Administration
agitation
Metoprolol Succinate 100 mg 04/09/24 20:00 04/16/24 08:16
Metoprolol 100 Mg Extended Release Tablet PO 05/07/24 19:59 100 mg
BID LAITH Administration
Metoprolol Tartrate 5 mg 03/30/24 15:09 04/12/24 03:59
Metoprolol 5 Mg/5 Ml Vial IV 04/27/24 15:08 5 mg
Q4HPRN PRN Administration
HR > 120
Miconazole Nitrate 0 applic 04/13/24 20:00 04/16/24 08:17
Miconazole Powder Bottle TOPICAL 05/11/24 19:59 1 applic
BID LAITH Administration
Pantoprazole Sodium 40 mg 04/11/24 08:00 04/16/24 08:15
Pantoprazole 40 Mg Delayed Release Tablet PO 05/09/24 07:59 40 mg
BID LAITH Administration
Quetiapine Fumarate 100 mg 04/04/24 08:00 04/16/24 08:15
Quetiapine 100 Mg Tablet PO 05/02/24 07:59 100 mg
BID LAITH Administration
Sacubitril/Valsartan 1 tab 04/11/24 08:00 04/16/24 08:15
Sacubitril 24 Mg/Valsartan 26 Mg (Entresto) Tab PO 05/09/24 07:59 1 tab
BID LAITH Administration
Sodium Chloride 0 flush 03/23/24 22:00 04/16/24 04:45
Sodium Chloride 0.9% (Flush) Syringe IV 04/20/24 21:59 2 flush
PER PROTOCOL LAITH Administration
Sodium Chloride 0.5 ml 04/11/24 16:02 04/16/24 04:43
Nss (Pf) 10 Ml Vial For Ativan 1 Mg Dose IV 05/09/24 16:01 0.5 ml
Q4HPRN PRN Administration
IV LORAZEPAM DILUTION
Spironolactone 25 mg 04/09/24 10:00 04/16/24 08:16
Spironolactone 25 Mg Tablet PO 05/07/24 09:59 25 mg
DAILY LAITH Administration
Thiamine HCl 100 mg 03/27/24 08:00 04/16/24 08:15
Thiamine 100 Mg Tablet PO 04/24/24 07:59 100 mg
BID LAITH Administration
Vital Signs
Temp Pulse Resp BP Pulse Ox
98.2 F 88 20 130/88 98
04/16/24 11:38 04/16/24 11:30 04/16/24 11:30 04/16/24 11:30 04/16/24 11:30
Height 6 ft 1.5 in
Actual Weight 114.033 kg
Body Mass Index (BMI) 32.7
Physical Exam
Physical Exam:
General Appearance/Observation: Well-developed, well-nourished individual in no apparent distress. Sitting up in bed, a little restless, confused
Pain/Comfort Assessment: Denies
Mood/Affect: restless, agitated, confused
Eyes: Conjunctiva/Lids: normal Pupils: pupils equal round and reactive to light and Accommodation - able to track okay, no nystagmus
Ears/Nose/Throat: oral mucosa moist, throat clear. Lips/Teeth/Gums: normal
Neck: No muscle spasm or tenderness
Cardiovascular: Heart: regular, no murmur
Pulses: dorsalis pedis 2+ bilaterally
Respiratory: Respiratory Effort/Chest Expansion: normal Auscultation: Clear to auscultation bilaterally
Gastrointestinal: abdomen not tender, no distension, normal abdominal bowel sounds
Extremities: Edema: None Cyanosis: None Trophic changes: None
Neurology Exam:
Orientation: Awake and alert, but not oriented to time or place
Speech: some dysarthria, mumbles
Comprehension: Seems Intact - does follow some simple commands
Cranial Nerves: - no gross cranial nerve deficits or asymmetry.
Sensory:
Light touch: Intact in bilateral upper and lower extremities - maybe little less sensitive in the left foot compared to right
Reflexes:
Biceps: 1+ bilaterally
Patellar: 1+ bilaterally
Babinski: Downgoing bilaterally
Clonus: None
Parish: Negative bilaterally
Cerebellar: Dysmetria/Ataxia: None significant - able to do FNF without dysmetria, negative pronator drift.
Musculoskeletal:
Motor: (Manual muscle scale 0-5)
Muscle SA EF WE EE FF FA HF KE DF EHL PF
Right 5 5 5 5 5 5 5 5 5 5 5
Left 5 5 5 5 5 5 5 5 5 5 5
Tone: Normal in all extremities
Range of Motion: Passively within normal limits in all extremities
Lab Results
04/16/24 07:28
04/16/24 07:28
WBC 6.2 10^3/uL (4.8-10.8) 04/16/24 07:
Hgb 11.1 g/dL (13.0-18.0) L 04/16/24 07:28
Hct 35.0 % (39.0-52.0) L 04/16/24 07:
MCV 85.2 fL (80.0-94.0) 04/16/24 07:28
Plt Count 544 10^3/uL (130-400) H 04/16/24 07:28
PT 14.9 Sec (11.4-14.6) H 04/06/24 13:07
INR 1.14 04/06/24 13:07
Sodium 137 mmol/L (135-145) 04/16/24 07:28
Potassium 4.7 mmol/L (3.5-5.1) 04/16/24 07:28
Chloride 100 mmol/L (98-107) 04/16/24 07:28
Carbon Dioxide 22 mmol/L (22-30) 04/16/24 07:28
BUN 10 mg/dl (9-20) 04/16/24 07:28
Creatinine 0.8 mg/dL (0.7-1.3) 04/16/24 07:28
eGFR > 60.00 04/16/24 07:28
Glucose 100 mg/dl (70-99) H 04/16/24 07:28
Hemoglobin A1c 5.4 % (4.0-5.6) 03/26/24 03:45
Calcium 9.3 mg/dl (8.4-10.2) 04/16/24 07:28
Phosphorus 5.2 mg/dl (2.5-4.5) H 04/16/24 07:28
Magnesium 1.9 mg/dl (1.6-2.3) 04/16/24 07:28
Total Bilirubin 0.9 mg/dl (0.2-1.3) 04/16/24 07:28
Direct Bilirubin 0.8 mg/dl (0.0-0.4) H 03/25/24 04:16
AST 48 U/L (17-59) 04/16/24 07:28
ALT 45 U/L (0-50) 04/16/24 07:28
Alkaline Phosphatase 168 U/L (38-126) H 04/16/24 07:28
Total Protein 7.1 g/dl (6.3-8.2) 04/16/24 07:
Albumin 4.5 g/dl (3.5-5.0) 04/16/24 07:
Digoxin 0.8 ng/ml (0.8-2.0) 04/12/24 07:23
Diagnostic Results
As per HPI.
Comorbidities / Impairment Group
Comorbidities:
cardiac arrest, arrhythmia, cardiomyopathy, confusion
Impairment Group:
Anoxic encephalopathy
Assessment / Plan
Plan
Assessment:
38 year old male with admission for nosebleed, GI bleed, with subsequent V-tach cardiac arrest, VDRF, COVID, pneumonia, hyponatremia, transaminitis. With confusion, agitation/restlessness likely from anoxic injury from cardiac arrest, but probably
compounded by alcoholic/Wernicke's encephalopathy.
PM&R PT/OT/ST to increase independence with ADLs, improve balance, coordination, endurance, strength, mobility, community reintegration, decreased burden of care on others and family education.
- Seems encephalopathy from anoxic brain injury, maybe getting a little better
- Still on 1:1 currently
- Has haldol, ativan prn - try to minimize use. Continue seroquel.
Dysarthria: speech evaluation
Dysphagia - on IDDSI-6 diet per speech therapy.
Alcohol use disorder: Continue thiamine and folic acid. Ammonia level less than 9
Hyperkalemia: Potassium is 5.3 on 04/13/2024
atrial fibrillation: Toprol-XL 100 mg twice daily, digoxin 250 mcg -check digoxin levels on the day of discharge and again 1 month after discharge
- Cardiology restarted benazepril on 04/12/2024 - Cardiology recommends avoiding usage calcium channel blockers if possible given reduced left ventricular ejection fraction
- Sacubitril/valsartan 24 mg / 26 mg twice daily started
Anemia:multifactorial with iron deficiency: Stable
Acute on chronic HFrEF: Stable - Prior echo shows ejection fraction of 30 to 35% with global hypokinesis and small pericardial effusion
-Continuing with IV Lasix 20 mg daily
HTN: On metoprolol, monitor closely
Psych: will need Psychology consult and likely neuropsychology.
- Still agitated/restless - try to minimize the haldol, ativan. Is on Seroquel.
Skin: monitor for pressure sores/rashes/lesions.
Pain: acetaminophen as needed.
Bowel: Colace and Senna, PRN bisacodyl.
Alcohol Abuse: Needs Alcohol cessation education
GI Prophylaxis: Pantoprazole
DVT Prophylaxis: Now on eliquis again
Pulmonary: Incentive spirometry
Safety: Continue to reinforce assistance with all transfers.
Code Status: Full code
Dispo: Eventual home with family care. Social history reviewed.
Functional and Medical Goals: Modified Independent with ADL�s, ambulation, transfers
Summary
-
Things that must be addressed in Hospital prior to discharge:
1. Please continue PT/OT/Speech therapy daily at bedside
2. Consider limiting use of Haldol and ativan if able.
Discharge Destination: Could be good candidate for brain injury/TBI rehab - likely anoxic injury with cardiac arrest.
- Would need to be at brain injury specialty rehabilitation unit - could consider [facility].
Summary of recommendations:
- Discharge Destination: TBI Rehab unit
Will continue to follow patient.
Thank you for allowing me to care for your patient. Please contact me with any questions or concerns.
Data Reviewed
-
Radiology: Image Personally Visualized and interpreted and Report Reviewed by me
Labs: Labs Reviewed by me
Comments
-
This note was dictated using a voice recognition system. Please excuse any typographical errors from turntable engineer. If you believe there are any discrepancies, please notify our office.
[2024-04-16 15:55] LABS: Digoxin 0.6 ng/ml (0.8-2.0)
[2024-04-16 16:05] VITALS: BP 110/63
[2024-04-16] MEDS: TYLENOL 650 MG PO (18:04)
--- NOTE | 2024-04-16 18:11 | PTCARENOTE ---
Patient making attempts to leave hospital floor. Pushing past staff and ambulating in halls trying to find the exit. Patient assisted x2 back to room. Ativan given for agitation and Tylenol given for headache. 1:1 at bedside.
[2024-04-16] MEDS: TOPROL XL PO (19:51)
[2024-04-16] MEDS: ENTRESTO 24 MG/26 MG PO (20:22)
--- NOTE | 2024-04-16 20:55 | PTCARENOTE ---
Addendum entered by John Kumar RN 04/16/24 22:39:
Nursing supervisor seaming advised.
Original Note:
Patient ignored PCT in 1:1 and slid off side of couch onto his bottom. Patient ignored PCT telling him not to get out of bed. No apparent injury noted. Advised covering provider.
--- NOTE | 2024-04-16 21:09 | W.PN.UPDATE ---
Update Note
Progress Note Update
Witnessed fall by 1:1 observation staff. Patient slipped off couch onto his buttock. Patient did not hit his head per staff. No bruises noted during exam. Was able to walk to bed with the staff.
Patient is confused which is baseline but denies pain when asked.
Will continue 1:1 for safety.
[2024-04-16 23:05] VITALS: BP 104/68
[2024-04-17] MEDS: ATIVAN 1 MG IV ×3 (02:29→22:50)
[2024-04-17] MEDS: NSS (PRESERVATIVE FREE) 0.5 ML IV ×2 (02:30→22:50)
[2024-04-17] MEDS: FLUSH (NSS) 2 FLUSH IV ×2 (02:31→22:51)
[2024-04-17 04:52] VITALS: BMI 32.3
[2024-04-17 07:02] VITALS: BP 132/93
[2024-04-17] MEDS: FARXIGA 10 MG PO (08:50)
[2024-04-17] MEDS: PROTONIX 40 MG PO ×2 (08:50→21:02)
[2024-04-17] MEDS: VITAMIN B1 100 MG PO ×2 (08:50→21:01)
[2024-04-17] MEDS: ELIQUIS 5 MG PO ×2 (08:50→21:02)
[2024-04-17] MEDS: ENTRESTO 24 MG/26 MG 1 TAB PO ×2 (08:50→21:05)
[2024-04-17] MEDS: TOPROL XL 100 MG PO ×2 (08:51→21:02)
[2024-04-17] MEDS: ALDACTONE 25 MG PO (08:51)
[2024-04-17] MEDS: FOLVITE 1 MG PO (08:51)
[2024-04-17] MEDS: LASIX 20 MG PO (08:51)
[2024-04-17] MEDS: FEOSOL 325 MG PO (08:51)
[2024-04-17] MEDS: SEROQUEL 100 MG PO ×2 (08:51→21:03)
[2024-04-17] MEDS: DESENEX/MITRAZOL/ZEASORB 1 APPLIC TOPICAL ×2 (08:53→21:05)
--- NOTE | 2024-04-17 09:25 | W.PN.HOSP.TC ---
Today's Communication/Plan
-
cont PT/OT
D/c planning
Assessment / Plan
Assessment / Plan
Pt is a 38 year old male
Persistent encephalopathy-- suspect combination of Wernicke's encephalopathy from long-term alcohol dependence/use plus anoxic injury from PEA arrest (brain injury)--cont thiamine/folate--maintain abstinence from ETOH--time will tell if improvement
will be had--ammonia level WNL--cont seroquel and decrease haldol prn--MRI noted--apprec psych--apprec PM&R eval--would be candidate for [facility] at [place]--need to be off restraints and 1:1 for at least 24 hours prior to d/c
Persistent Afib-- Off cardizem drip. On Digoxin PO. Lopressor 50 Q6--Eliquis restarted--apprec cards--no plans for procedures at this point
Acute on chronic HFrEF - Echo showing EF of 30-35% with global hypokinesis w/ small pericardial effusion--lasix
Dysphagia -diet per speech therapy
Hypertension, primary vs. secondary- -cont lisinopril 20 bid
Resolved acute issues:
Anemia likely acute from blood loss (epistaxis/GI bleed) in combination from Eliquis, with iron deficiency component--s/p pRBC--HGB stable--cont protonix
Vtach Cardiac Arrest w/ CPR--TTM not initiated due to UGI bleed. Head CT showed atrophy and EEG showed diffuse cortical dysfunction without focal abnormality and no seizure activity- Extubated, off sedation
Sepsis, likely secondary to COVID-19 Infection- Febrile for several days without white count, initially thought propofol rxn vs. bacterial infection, however repeat covid test on 03/28/24 positive--s/p zosyn/decadron/Remdesivir
Alcohol Use Disorder w/possible withdrawal seizure- MSAS protocol. Thiamine and Folic acid, Ativan per protocol. Finished phenobarb taper.
Superficial Venous Thrombus - swelling in L arm near peripheral line, US confirmed L basilic vein thrombosis. Line removed--back on Eliquis
Upper GI Bleed w/ Epistaxis (resolved)- S/p 1u pRBCs. s/p TXA & cauterization for epistaxis. No signs of active bleeding on exam. Nasal packing removed. Will continue to monitor H&H. Transfuse if hgb <7.
Hyponatremia (resolved) - Off fluids. Assess volume status and replete as needed.
Hyperbilirubinemia (resolved) - possible component of hemolysis vs. Gilbert's Disease. Resolved now.
Transaminitis, likely alcoholic fatty liver, possible compounding shock liver (resolved) - Elevated AST/ALT on admission 2:1. history of alcohol use and obesity, possible chronic elevation from fatty liver vs. shock liver. AST/ALT normalized.
Lactic Acidosis (resolved) - was elevated immediately post cardiac arrest, has come back down. Blood gas showed metabolic acidosis without respiratory compensation; now normal pH.
Elevated troponins (resolved)- peaked, likely secondary to cardiac arrest.
Possible Aspiration Pneumonia, seen on admission (resolved as of 03/28/24)- Blood cx 03/27 NGTD x 48hrs, sputum cx showing usual yvette. COVID/Flu on admission negative. Completed IV Abx through 03/28.
Tracheitis-- Tracheal aspirate cx growing MSSA--no pna- finished Cefazolin course
Chronic stable conditions:
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 sleep apnea vs. worsening Asthma, however history uncertain
Bipolar Disorder--- patient's mother states he was on Lexapro but stopped on his own due to weight gain--cont seroquel and PRN haldol, dose reduced
DVT proph
CODE STATUS -- full code--was DNR on admission--revoked by pt Mother
Anticipated Discharge: > 48 hours
Subjective/Interval History
-
Date of Service: April 17, 2024
pt off restraints today
still on 1:1
Objective Data
-
Labs:
Laboratory Results
04/17/24
07:55
WBC Pending
Hgb Pending
Hct Pending
Plt Count Pending
Sodium Pending
Potassium Pending
Chloride Pending
Carbon Dioxide Pending
BUN Pending
Creatinine Pending
Glucose Pending
Calcium Pending
Total Bilirubin Pending
AST Pending
ALT Pending
Alkaline Phosphatase Pending
Vital Signs:
max temp for 24 hours
04/16/24
19:30
Temp 98.8 F
Vital Signs
Temp Pulse Resp BP Pulse Ox
98.6 F 95 18 132/93 98
04/17/24 07:02 04/17/24 07:02 04/17/24 07:02 04/17/24 07:02 04/17/24 07:02
I&O
04/16/24 04/17/24 04/18/24
06:59 06:59 06:59
Intake Total 1290 / 1290 960 / 960 240 / 240
Output Total 1750 / 1750 200 / 200
Balance 1290 / 1290 -790 / -790 40 / 40
Review of Systems
-
All other systems: Reviewed and negative
Physical Exam
-
General: Well Developed, Well Nourished, No Apparent Distress and Obese
HEENT: Normocephalic and Atraumatic; Negative Oxygen
Respiratory: Clear to Auscultation; Negative Wheezes or Rhonchi
Cardiac: Irregular Rhythm
GI: Soft, Nontender, Nondistended and Normal Bowel Sounds
Musculoskeletal: No Clubbing, No Cyanosis and No Edema
Neuro: Awake
[2024-04-17 09:52] LABS: Hematocrit 34.9 % (39.0-52.0); Mean Corp Hgb Conc. 31.5 g/dL (33.0-37.0); Mean Corpuscular Hgb 26.8 pg (27.0-31.0); Mean Corpuscular Volume 85.1 fL (80.0-94.0); Mean Platelet Volume 10.4 fL (7.4-10.4); Platelet Count 477 10^3/uL (130-400); Red Cell Dist. Width 15.3 % (11.5-14.5); White Blood Cell Count 5.6 10^3/uL (4.8-10.8)
[2024-04-17 10:21] LABS: ALT (SGPT) 43 U/L (0-50); AST (SGOT) 43 U/L (17-59); Alkaline Phosphatase 153 U/L (38-126); Blood Urea Nitrogen 10 mg/dl (9-20); Calcium 9.2 mg/dl (8.4-10.2); Carbon Dioxide 25 mmol/L (22-30); Chloride 102 mmol/L (98-107); Estimated Creatinine Clearance > 125 ml/min; Glucose 93 mg/dl (70-99); Magnesium 1.9 mg/dl (1.6-2.3); Phosphorus 6.2 mg/dl (2.5-4.5); Potassium 4.5 mmol/L (3.5-5.1); Sodium 137 mmol/L (135-145); Total Bilirubin 0.9 mg/dl (0.2-1.3); Total Protein 6.7 g/dl (6.3-8.2); eGFR > 60.00
[2024-04-17] MEDS: LANOXIN 250 MCG PO (13:08)
[2024-04-17 15:08] VITALS: BP 114/85
[2024-04-17] MEDS: TYLENOL 650 MG PO (22:50)
[2024-04-17 23:20] VITALS: BP 119/76
[2024-04-18 05:53] VITALS: BMI 31.9
[2024-04-18 06:03] LABS: Hematocrit 37.5 % (39.0-52.0); Hemoglobin 11.7 g/dL (13.0-18.0); Mean Corp Hgb Conc. 31.2 g/dL (33.0-37.0); Mean Corpuscular Hgb 26.7 pg (27.0-31.0); Mean Corpuscular Volume 85.4 fL (80.0-94.0); Mean Platelet Volume 10.1 fL (7.4-10.4); Platelet Count 425 10^3/uL (130-400); Red Blood Cell Count 4.39 10^6/uL (4.70-6.10); Red Cell Dist. Width 15.4 % (11.5-14.5)
[2024-04-18 06:21] LABS: ALT (SGPT) 44 U/L (0-50); AST (SGOT) 46 U/L (17-59); Albumin 4.7 g/dl (3.5-5.0); Alkaline Phosphatase 151 U/L (38-126); Blood Urea Nitrogen 9 mg/dl (9-20); Calcium 9.7 mg/dl (8.4-10.2); Carbon Dioxide 28 mmol/L (22-30); Chloride 97 mmol/L (98-107); Estimated Creatinine Clearance > 125 ml/min; Glucose 92 mg/dl (70-99); Magnesium 1.8 mg/dl (1.6-2.3); Potassium 4.6 mmol/L (3.5-5.1); Sodium 135 mmol/L (135-145); Total Bilirubin 1.1 mg/dl (0.2-1.3); Total Protein 7.4 g/dl (6.3-8.2); eGFR > 60.00
[2024-04-18 07:51] VITALS: BP 116/64
[2024-04-18] MEDS: ELIQUIS 5 MG PO ×2 (08:10→21:27)
[2024-04-18] MEDS: FEOSOL 325 MG PO (08:10)
[2024-04-18] MEDS: ENTRESTO 24 MG/26 MG 1 TAB PO ×2 (08:10→21:29)
[2024-04-18] MEDS: ALDACTONE 25 MG PO (08:10)
[2024-04-18] MEDS: TOPROL XL 100 MG PO ×2 (08:10→21:29)
[2024-04-18] MEDS: FOLVITE 1 MG PO (08:10)
[2024-04-18] MEDS: PROTONIX 40 MG PO ×2 (08:10→21:27)
[2024-04-18] MEDS: LASIX 20 MG PO (08:11)
[2024-04-18] MEDS: SEROQUEL 100 MG PO ×2 (08:11→21:27)
[2024-04-18] MEDS: VITAMIN B1 100 MG PO ×2 (08:11→21:27)
[2024-04-18] MEDS: FARXIGA 10 MG PO (08:11)
[2024-04-18] MEDS: DESENEX/MITRAZOL/ZEASORB 1 APPLIC TOPICAL (08:12)
[2024-04-18] MEDS: TYLENOL 650 MG PO ×3 (08:19→19:27)
--- NOTE | 2024-04-18 08:51 | W.PN.HOSP.TC ---
Today's Communication/Plan
-
see bold
Assessment / Plan
Assessment / Plan
Gen: NAD, Awake and alert
Eyes: EOMI, PERRLA, no scleral icterus.
Neck: supple.
CV: tachy, reg rhythm, +S1/S2, no m/r/g.
Resp: CTAB, no rales, wheezes, or rhonchi.
Abd: +BS, soft, NT, ND
Skin: No rashes.
Neuro: CN 2-12 intact, non-focal.
Psych: mildly flat affect.
MRI brain: No MRI evidence for an acute infarct.
Sepsis due to acute influenza A infection:
-new Dx 04/18/24AM
-start Tamiflu 75mg PO BID x 5 days
-BP stable and EF 30-35%, no IVFs at this moment
-Sepsis will cause acute metabolic encephalopathy especially in the setting of anoxic brain injury
Persistent encephalopathy:
-suspect combination of Wernicke's encephalopathy from long-term alcohol dependence/use plus anoxic injury from PEA arrest (anoxic brain injury)
-cont thiamine/folate
-maintain abstinence from ETOH
-MRI brain unremarkable as above
-time will tell if improvement will be had (very unlikely)
-ammonia normal
-cont seroquel/haldol PRN
-psych saw in c/s
-pt is candidate for [facility] at [place] but needs to be off restraints and 1:1 for at least 24 hours prior to d/c
Persistent Afib:
-was on cardizem drip, now off
-cont Digoxin/Toprol XL/Eliquis
Acute on chronic HFrEF:
-Echo EF 30-35% with global hypokinesis w/ small pericardial effusion
-cont Lasix/Farxiga/Aldactone/Entresto/Toprol XL
Dysphagia:
-IDDSI 6 diet
Essential Hypertension:
-cont Lasix/Aldactone/Entresto/Toprol XL
Resolved acute issues:
Anemia likely acute from blood loss (epistaxis/GI bleed) in combination from Eliquis, with iron deficiency component--s/p pRBC--HGB stable--cont protonix
Vtach Cardiac Arrest w/ CPR--TTM not initiated due to UGI bleed. Head CT showed atrophy and EEG showed diffuse cortical dysfunction without focal abnormality and no seizure activity- Extubated, off sedation
Sepsis, likely secondary to COVID-19 Infection- Febrile for several days without white count, initially thought propofol rxn vs. bacterial infection, however repeat covid test on 03/28/24 positive--s/p zosyn/decadron/Remdesivir
Alcohol Use Disorder w/possible withdrawal seizure- MSAS protocol. Thiamine and Folic acid, Ativan per protocol. Finished phenobarb taper.
Superficial Venous Thrombus - swelling in L arm near peripheral line, US confirmed L basilic vein thrombosis. Line removed--back on Eliquis
Upper GI Bleed w/ Epistaxis (resolved)- S/p 1u pRBCs. s/p TXA & cauterization for epistaxis. No signs of active bleeding on exam. Nasal packing removed. Will continue to monitor H&H. Transfuse if hgb <7.
Hyponatremia (resolved) - Off fluids. Assess volume status and replete as needed.
Hyperbilirubinemia (resolved) - possible component of hemolysis vs. Gilbert's Disease. Resolved now.
Transaminitis, likely alcoholic fatty liver, possible compounding shock liver (resolved) - Elevated AST/ALT on admission 2:1. history of alcohol use and obesity, possible chronic elevation from fatty liver vs. shock liver. AST/ALT normalized.
Lactic Acidosis (resolved) - was elevated immediately post cardiac arrest, has come back down. Blood gas showed metabolic acidosis without respiratory compensation; now normal pH.
Elevated troponins (resolved)- peaked, likely secondary to cardiac arrest.
Possible Aspiration Pneumonia, seen on admission (resolved as of 03/28/24)- Blood cx 03/27 NGTD x 48hrs, sputum cx showing usual yvette. COVID/Flu on admission negative. Completed IV Abx through 03/28.
Tracheitis-- Tracheal aspirate cx growing MSSA--no pna- finished Cefazolin course
Chronic stable conditions:
Asthma - was using his inhaler more frequently for night time shortness of breath [employer]. 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 sleep apnea vs. worsening Asthma, however history uncertain
Bipolar Disorder--- patient's mother states he was on Lexapro but stopped on his own due to weight gain--cont seroquel and PRN haldol, dose reduced
FULL/Eliquis
Total time spent on today's encounter was 50 minutes which included time spent in counseling the patient/family regarding diagnosis and treatment plan as listed above, goals of care, and symptom management. Case was discussed with nursing staff,
specialists, and care coordinators/case management. All labs and imaging personally reviewed by me. Remainder the time spent in detailed review of previous records, lab data, imaging, and other medical provider documentation.
Anticipated Discharge: > 48 hours
Subjective/Interval History
-
Date of Service: April 18, 2024
No new complaints.
Objective Data
-
Labs:
Laboratory Results
04/18/24
04:42
WBC 5.0
Hgb 11.7 L
Hct 37.5 L
Plt Count 425 H
Sodium 135
Potassium 4.6
Chloride 97 L
Carbon Dioxide 28
BUN 9
Creatinine 0.8
Glucose 92
Calcium 9.7
Total Bilirubin 1.1
AST 46
ALT 44
Alkaline Phosphatase 151 H
Vital Signs:
Vital Signs
Temp Pulse Resp BP Pulse Ox
98.9 F 117 19 116/64 95
04/18/24 07:51 04/18/24 07:51 04/18/24 07:51 04/18/24 07:51 04/18/24 07:51
I&O
02/04/18/24 04/19/24
06:59 06:59 06:59
Intake Total 960 / 960 720 / 720
Output Total 1750 / 1750 1000 / 1000
Balance -790 / -790 -280 / -280
[2024-04-18 09:37] LABS: Urine Albumin 1+ (Neg - Trace); Urine Bilirubin Negative (Negative); Urine Character Clear (Clear); Urine Color Yellow; Urine Glucose 1+ (Negative); Urine Ketone Negative (Negative); Urine Leukocyte Negative (Negative); Urine Nitrite Negative (Negative); Urine Occult Blood Negative (Negative); Urine Specific Gravity 1.015 (<1.030); Urine Urobilinogen Negative (Neg - 1+)
[2024-04-18 09:41] LABS: COVID-19 Antigen Negative (Negative)
[2024-04-18] MEDS: TAMIFLU 75 MG PO ×2 (10:03→21:26)
[2024-04-18 10:33] LABS: Urine Red Blood Cell 0-2 /HPF (0-2); Urine Squamous Cell None seen /LPF (Few); Urine White Cell 0-2 /HPF (0-5)
[2024-04-18] MEDS: DUONEB 3 ML INH (12:50)
[2024-04-18] MEDS: LANOXIN 250 MCG PO (12:50)
[2024-04-18 15:00] VITALS: BP 115/72
[2024-04-18] MEDS: NSS (PRESERVATIVE FREE) 0.5 ML IV (15:18)
[2024-04-18] MEDS: ATIVAN 1 MG IV (15:18)
[2024-04-18 19:26] VITALS: BP 106/59
[2024-04-18] MEDS: DESENEX/MITRAZOL/ZEASORB TOPICAL (22:38)
[2024-04-18 22:44] VITALS: BP 123/89
--- NOTE | 2024-04-18 23:24 | PTCARENOTE ---
Pt assessed as per work list flow sheet. Pt is lethargic but arouses to voice. restraints off. 1:1 at the bedside. Pt was given Tylenol for T over 101.0 by day shift RN. When rechecked pt was 98.3. Cooperated with PO meds. No c/o pain. No s/s of
distress assessed. Will continue to monitor.
[2024-04-19 05:22] VITALS: BMI 32.0
--- NOTE | 2024-04-19 07:19 | W.PN.HOSP.TC ---
Today's Communication/Plan
-
Patient is a candidate for [facility] at [facility]. Patient needs to be off restraints and 1:1 for at least 24hrs prior to d/c. Patient is on day 2 of Tamiflu. Will move forward with discharge planning.
Assessment / Plan
Assessment / Plan
Assessment/plan:
-Persistent altered mental status possibly due to Wernicke's encephalopathy secondary to long-term alcohol dependence: Improving
The patient has been getting thiamine and folate since his admission
Continue Ativan as per protocol
Continue Seroquel 100 mg p.o. twice daily
Patient is no longer sedated and is extubated
MRI conducted on 04/11/2024 showed moderate age-related parenchymal atrophy. No MRI evidence for an acute infarct. Bilateral mastoid effusions. No mass effect, midline shift or extra-axial collection no abnormal signal intensity on
diffusion-weighted images.
Status unchanged from 04/13/2024
Haldol dosage was reduced to 1 mg IV every 8 hours as needed after recommendations from psychiatry. The patient is much more clear after this medication adjustment.
-Alcohol use disorder with possible withdrawal seizure - Monitoring
On 03/24/2024 the patient was seen with seizure-like activity before becoming unresponsive requiring ACLS
MSAS protocol
Continue thiamine and folic acid with Ativan as per protocol.
Phenobarbital taper completed.
Ammonia level less than 9
-Ambulatory Dysfunction:
Patient is much clearer on 04/14/2024 but remains unable to be steady on his feet.
PT OT evaluation recommends that the patient receive acute rehab upon discharge.
Appreciate PMNR evaluation -patient would be a candidate for [facility] at [facility]. The patient would need to be off of restraints for and not on a one-to-one for at least 24 hours prior to discharge.
-Sepsis secondary to acute Influenza A Infection:
Nasal swab on 04/18/2024 positive for influenza A
White blood cells 4.0 on 04/19/2024
Blood pressure 99/64 on 04/19/2024
Pulse 101 on 04/18 at 19: 26
Temperature 101.2 on 04/18 at 19: 26
Elevated alkaline phosphatase at 140
Tamiflu 75 mg p.o. twice daily started for 5 days
2nd Day of Tamiflu
-Hyperkalemia:
Potassium is 5.3 on 04/13/2024
The slight elevation may be due to lysis during blood draw -will recheck on next draw
Potassium 4.5 on 04/19/2024
-Persistent atrial fibrillation: Monitoring
Patient is on Toprol-XL 100 mg twice daily
Patient currently on digoxin 250 mcg -check digoxin levels on the day of discharge and again 1 month after discharge
Cardiology restarted benazepril on 04/12/2024
Cardiology recommends avoiding usage calcium channel blockers if possible given reduced left ventricular ejection fraction
Sacubitril/valsartan 24 mg / 26 mg twice daily started
Patient is still scheduled for [facility] on May 2024
-Anemia, multifactorial with iron deficiency: Stable
On a PPI with lansoprazole
Persistently low hemoglobin around 9 despite no obvious signs of bleed
Iron, iron saturation, and ferritin were low on prior labs. Continue oral iron
-Essential hypertension:
Continue metoprolol tartarate 5 mg IV every 4 hours as needed
Continue metoprolol succinate 100 mg p.o. twice daily
-Dysphagia: Stable
Cleared for IDDSI�6 diet by speech therapy
-Tracheitis: Stable
Tracheal aspirate culture sample grew MSSA
Finished cefazolin course
-Acute on chronic HFrEF: Stable
Prior echo shows ejection fraction of 30 to 35% with global hypokinesis and small pericardial effusion
Continuing with IV Lasix 20 mg daily
-V. tach cardiac arrest with CPR: Monitoring
Chest x-ray did not show any osseous abnormality
Weaned off pressure support
Head CT shows atrophy and EEG showed diffuse cortical dysfunction without focal abnormality and no seizure activity
Patient is extubated and off sedation
-Sepsis, secondary to COVID-19 infection: Stable
Patient was febrile for several days without an elevated white count. Initially this was thought to be a propofol reaction versus a bacterial infection however repeat COVID test on 03/28/2024 was positive. Patient was hypothermic at 96.6 �F,
tachycardic at 102 suggesting that COVID-19 was the causative factor.
Patient has completed Zosyn. Finished 1 dose of Decadron and 5 days of remdesivir
-Superficial venous thrombus: Monitoring
Swelling in left arm near peripheral line
Ultrasound confirmed left basilic vein thrombosis�line removed�will observe
-Hyponatremia: Resolved
Assess volume status and replete as needed
-Hyperbilirubinemia: Resolved
A possible component of hemolysis versus Gilbert's disease.
Continue to monitor
-Transaminitis likely secondary due to alcoholic fatty liver with possible compounding shock liver: Resolved
Patient had an elevated AST and ALT on admission with a ratio of 2:1
Has a history of alcohol use and obesity
-Lactic acidemia: Resolved
Was elevated immediately following his cardiac arrest. Has come back down.
-Asthma: Stable
Continue to monitor
-Bipolar disorder: Stable
Patient's mother states that he used to be on Lexapro but stopped on his own due to weight gain. Appreciate psychiatry consult. Psychiatry is under the impression that the patient's encephalopathy is due to a lot more than alcohol withdrawal.
Note that he had atrophy on his CAT scan well before he came to [facility] and notes numerous comorbidities including cardiac arrest which they believe are contributing to his cognitive decline. They recommended staying away from sedating
meds as much as possible. They also noted to be aware of IV Haldol usage as the patient had a prolonged QTc earlier in the admission.
Diet - IDDSI-6
DVT Ppx - SCDs
GI Ppx - Lansoprazole 30 BID
Code Status - Full Code
Imaging:
Brain MRI on 04/11/2024: No MRI evidence for acute infarct. Bilateral mastoid effusions. Moderate age-related parenchymal atrophy. No masslike effect, midline shift, or extra-axial collection.
Anticipated Discharge: 24 - 48 hours
Subjective/Interval History
-
Met with patient at the bedside. He is calm and pleasant in discussion and states that his stay was mostly going well so far. He stated that his day got substantially worse after he received his morning medications but was unable to specify why.
Patient does not have any physical complaints. No shortness of breath no chest tightness no dizziness.
Objective Data
-
Labs:
Labs
04/19/24 08:45
04/19/24 08:45
Vital Signs:
Vital Signs
Temp Pulse Resp BP Pulse Ox
99.0 F 93 18 123/89 94
04/18/24 22:44 04/18/24 22:44 04/18/24 22:44 04/18/24 22:44 04/18/24 22:44
I&O
04/18/24 04/19/24 04/20/24
06:59 06:59 06:59
Intake Total 720 / 720
Output Total 1000 / 1000 125 / 125
Balance -280 / -280 -125 / -125
Review of Systems
-
History Source: Patient
Constitutional: Reports No Symptoms
EENT: Reports No Symptoms Reported
Respiratory: Reports No Symptoms
Cardiac: Reports No Symptoms
Abdomen/GI: Reports No Symptoms
Breast: Reports No Symptoms
Genitourinary: Reports No Symptoms
Musculoskeletal: Reports No Symptoms
Skin: Reports No Symptoms
Neuro: Reports No Symptoms
Endocrine: Reports No Symptoms
Hematologic / Lymphatic: Reports No Symptoms
Allergy / Immunology: Reports No Symptoms
Physical Exam
-
General: Well Developed, Well Nourished and No Apparent Distress
HEENT: Normocephalic, Atraumatic and Moist Mucous Membranes
Respiratory: Clear to Auscultation
Cardiac: Regular Rhythm and S1/S2; Negative JVD
Breast: Deferred by me
GI: Soft, Nontender, Nondistended and Normal Bowel Sounds
Rectal: Deferred by Provider
Genito-urinary: Deferred by me
Musculoskeletal: No Clubbing, No Cyanosis and No Edema
Skin: Warm and Dry
Neuro: Awake, Alert and Oriented
Psych: Calm
[2024-04-19 07:32] VITALS: BP 99/64
[2024-04-19] MEDS: FEOSOL 325 MG PO (08:12)
[2024-04-19] MEDS: PROTONIX 40 MG PO ×2 (08:13→20:48)
[2024-04-19] MEDS: SEROQUEL 100 MG PO ×2 (08:13→21:03)
[2024-04-19] MEDS: TAMIFLU 75 MG PO ×2 (08:13→21:02)
[2024-04-19] MEDS: VITAMIN B1 100 MG PO ×2 (08:13→20:48)
[2024-04-19] MEDS: ELIQUIS 5 MG PO ×2 (08:13→21:03)
[2024-04-19] MEDS: FOLVITE 1 MG PO (08:13)
[2024-04-19] MEDS: FARXIGA 10 MG PO (08:13)
[2024-04-19] MEDS: TOPROL XL 100 MG PO ×2 (08:18→21:06)
[2024-04-19] MEDS: LASIX PO (08:19)
[2024-04-19] MEDS: ENTRESTO 24 MG/26 MG PO (08:19)
[2024-04-19] MEDS: DESENEX/MITRAZOL/ZEASORB 1 APPLIC TOPICAL ×2 (08:19→21:10)
[2024-04-19] MEDS: ALDACTONE PO (08:19)
--- NOTE | 2024-04-19 08:25 | W.PN.UPDATE ---
Update Note
Progress Note Update
I saw and evaluated the patient. I reviewed the resident�s note and agree with findings and plan as documented in the resident�s note.
Pt sleeping.
Gen: NAD, NCAT
CV: RRR, +S1/S2, no m/r/g.
Resp: CTAB, no rales, wheezes, or rhonchi.
Abd: +BS, soft, NT, ND
Psych: calm
MRI brain: No MRI evidence for an acute infarct.
Sepsis due to acute influenza A infection:
-new Dx 04/18/24AM
-cont Tamiflu 75mg PO BID x 5 days
-BP stable and EF 30-35%, no IVFs at this moment
-Sepsis will cause acute metabolic encephalopathy especially in the setting of anoxic brain injury
Persistent encephalopathy:
-suspect combination of Wernicke's encephalopathy from long-term alcohol dependence/use plus anoxic injury from PEA arrest (anoxic brain injury)
-cont thiamine/folate
-maintain abstinence from ETOH
-MRI brain unremarkable as above
-time will tell if improvement will be had (very unlikely)
-ammonia normal
-cont seroquel/haldol PRN
-psych saw in c/s
-pt is candidate for [facility] at [place] but needs to be off restraints and 1:1 for at least 24 hours prior to d/c
Persistent Afib:
-was on cardizem drip, now off
-cont Digoxin/Toprol XL/Eliquis
Acute on chronic HFrEF:
-Echo EF 30-35% with global hypokinesis w/ small pericardial effusion
-cont Lasix/Farxiga/Aldactone/Entresto/Toprol XL
Dysphagia:
-IDDSI 6 diet
Essential Hypertension:
-cont Lasix/Aldactone/Entresto/Toprol XL
Resolved acute issues:
Anemia likely acute from blood loss (epistaxis/GI bleed) in combination from Eliquis, with iron deficiency component--s/p pRBC--HGB stable--cont protonix
Vtach Cardiac Arrest w/ CPR--TTM not initiated due to UGI bleed. Head CT showed atrophy and EEG showed diffuse cortical dysfunction without focal abnormality and no seizure activity- Extubated, off sedation
Sepsis, likely secondary to COVID-19 Infection- Febrile for several days without white count, initially thought propofol rxn vs. bacterial infection, however repeat covid test on 03/28/24 positive--s/p zosyn/decadron/Remdesivir
Alcohol Use Disorder w/possible withdrawal seizure- MSAS protocol. Thiamine and Folic acid, Ativan per protocol. Finished phenobarb taper.
Superficial Venous Thrombus - swelling in L arm near peripheral line, US confirmed L basilic vein thrombosis. Line removed--back on Eliquis
Upper GI Bleed w/ Epistaxis (resolved)- S/p 1u pRBCs. s/p TXA & cauterization for epistaxis. No signs of active bleeding on exam. Nasal packing removed. Will continue to monitor H&H. Transfuse if hgb <7.
Hyponatremia (resolved) - Off fluids. Assess volume status and replete as needed.
Hyperbilirubinemia (resolved) - possible component of hemolysis vs. Gilbert's Disease. Resolved now.
Transaminitis, likely alcoholic fatty liver, possible compounding shock liver (resolved) - Elevated AST/ALT on admission 2:1. history of alcohol use and obesity, possible chronic elevation from fatty liver vs. shock liver. AST/ALT normalized.
Lactic Acidosis (resolved) - was elevated immediately post cardiac arrest, has come back down. Blood gas showed metabolic acidosis without respiratory compensation; now normal pH.
Elevated troponins (resolved)- peaked, likely secondary to cardiac arrest.
Possible Aspiration Pneumonia, seen on admission (resolved as of 03/28/24)- Blood cx 03/27 NGTD x 48hrs, sputum cx showing usual yvette. COVID/Flu on admission negative. Completed IV Abx through 03/28.
Tracheitis-- Tracheal aspirate cx growing MSSA--no pna- finished Cefazolin course
Chronic stable conditions:
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 sleep apnea vs. worsening Asthma, however history uncertain
Bipolar Disorder--- patient's mother states he was on Lexapro but stopped on his own due to weight gain--cont seroquel and PRN haldol, dose reduced
FULL/Eliquis
--- NOTE | 2024-04-19 09:05 | CM ---
Spoke with Alyce at [facility]
No bed available at [facility] - tested +flu on 04/18
private room would be needed.
Will need to obtain auth prior to d/c
PLAN: [facility] , pending bed availability
[2024-04-19 09:29] LABS: Hematocrit 37.4 % (39.0-52.0); Hemoglobin 11.8 g/dL (13.0-18.0); Mean Corp Hgb Conc. 31.6 g/dL (33.0-37.0); Mean Corpuscular Hgb 26.7 pg (27.0-31.0); Mean Corpuscular Volume 84.6 fL (80.0-94.0); Mean Platelet Volume 10.4 fL (7.4-10.4); Platelet Count 357 10^3/uL (130-400); Red Blood Cell Count 4.42 10^6/uL (4.70-6.10); Red Cell Dist. Width 15.3 % (11.5-14.5)
[2024-04-19 10:08] LABS: ALT (SGPT) 48 U/L (0-50); AST (SGOT) 55 U/L (17-59); Albumin 4.6 g/dl (3.5-5.0); Alkaline Phosphatase 140 U/L (38-126); Blood Urea Nitrogen 14 mg/dl (9-20); Calcium 9.4 mg/dl (8.4-10.2); Carbon Dioxide 25 mmol/L (22-30); Chloride 97 mmol/L (98-107); Estimated Creatinine Clearance 118 ml/min; Glucose 95 mg/dl (70-99); Potassium 4.5 mmol/L (3.5-5.1); Sodium 135 mmol/L (135-145); Total Bilirubin 0.9 mg/dl (0.2-1.3); Total Protein 7.3 g/dl (6.3-8.2); eGFR > 60.00
[2024-04-19] MEDS: LANOXIN 250 MCG PO (12:05)
[2024-04-19 13:19] VITALS: BP 101/58
[2024-04-19 15:53] VITALS: BP 98/51
[2024-04-19] MEDS: ENTRESTO 24 MG/26 MG 1 TAB PO (21:03)
[2024-04-19 23:47] VITALS: BP 100/51
[2024-04-20] VITALS (7 sets, daily range): BP systolic 89–100; BP diastolic 48–78; BMI 32.0
[2024-04-20] MEDS: ProAmatine 5 MG PO (00:25)
[2024-04-20 07:11] LABS: Hematocrit 36.6 % (39.0-52.0); Hemoglobin 11.7 g/dL (13.0-18.0); Mean Corpuscular Hgb 26.8 pg (27.0-31.0); Mean Corpuscular Volume 83.8 fL (80.0-94.0); Mean Platelet Volume 10.5 fL (7.4-10.4); Platelet Count 324 10^3/uL (130-400); Red Blood Cell Count 4.37 10^6/uL (4.70-6.10); Red Cell Dist. Width 15.1 % (11.5-14.5); White Blood Cell Count 3.1 10^3/uL (4.8-10.8)
--- NOTE | 2024-04-20 07:34 | W.PN.HOSP.TC ---
Today's Communication/Plan
-
Patient is at his baseline and we are working towards finding placement and discharge planning for this patient. Patient is on his fourth day of Tamiflu
Assessment / Plan
Assessment / Plan
Assessment/plan:
-Persistent altered mental status possibly due to Wernicke's encephalopathy secondary to long-term alcohol dependence: Improving
The patient has been getting thiamine and folate since his admission
Continue Ativan as per protocol
Continue Seroquel 100 mg p.o. twice daily
Patient is no longer sedated and is extubated
MRI conducted on 04/11/2024 showed moderate age-related parenchymal atrophy. No MRI evidence for an acute infarct. Bilateral mastoid effusions. No mass effect, midline shift or extra-axial collection no abnormal signal intensity on
diffusion-weighted images.
Status unchanged from 04/13/2024
Haldol dosage was reduced to 1 mg IV every 8 hours as needed after recommendations from psychiatry. The patient is much more clear after this medication adjustment.
-Alcohol use disorder with possible withdrawal seizure - Monitoring
On 03/24/2024 the patient was seen with seizure-like activity before becoming unresponsive requiring ACLS
MSAS protocol
Continue thiamine and folic acid with Ativan as per protocol.
Phenobarbital taper completed.
Ammonia level less than 9
-Ambulatory Dysfunction:
Patient is much clearer on 04/14/2024 but remains unable to be steady on his feet.
PT OT evaluation recommends that the patient receive acute rehab upon discharge.
Appreciate PMNR evaluation -patient would be a candidate for [facility] at [facility]. The patient would need to be off of restraints for and not on a one-to-one for at least 24 hours prior to discharge.
-Sepsis secondary to acute Influenza A Infection:
Nasal swab on 04/18/2024 positive for influenza A
White blood cells 4.0 on 04/19/2024
Blood pressure 99/64 on 04/19/2024
Pulse 101 on 04/18 at 19: 26
Temperature 101.2 on 04/18 at 19: 26
Elevated alkaline phosphatase at 140
Tamiflu 75 mg p.o. twice daily started for 5 days
3rd Day of Tamiflu
-Hyperkalemia:
Potassium is 5.3 on 04/13/2024
The slight elevation may be due to lysis during blood draw -will recheck on next draw
Potassium 4.5 on 04/19/2024
-Persistent atrial fibrillation: Monitoring
Patient is on Toprol-XL 100 mg twice daily
Patient currently on digoxin 250 mcg -check digoxin levels on the day of discharge and again 1 month after discharge
Cardiology restarted benazepril on 04/12/2024
Cardiology recommends avoiding usage calcium channel blockers if possible given reduced left ventricular ejection fraction
Sacubitril/valsartan 24 mg / 26 mg twice daily started
Patient is still scheduled for PVI on May 2024
-Anemia, multifactorial with iron deficiency: Stable
On a PPI with lansoprazole
Persistently low hemoglobin around 9 despite no obvious signs of bleed
Iron, iron saturation, and ferritin were low on prior labs. Continue oral iron
-Essential hypertension:
Continue metoprolol tartarate 5 mg IV every 4 hours as needed
Continue metoprolol succinate 100 mg p.o. twice daily
-Dysphagia: Stable
Cleared for IDDSI�6 diet by speech therapy
-Tracheitis: Stable
Tracheal aspirate culture sample grew MSSA
Finished cefazolin course
-Acute on chronic HFrEF: Stable
Prior echo shows ejection fraction of 30 to 35% with global hypokinesis and small pericardial effusion
Continuing with IV Lasix 20 mg daily
-V. tach cardiac arrest with CPR: Monitoring
Chest x-ray did not show any osseous abnormality
Weaned off pressure support
Head CT shows atrophy and EEG showed diffuse cortical dysfunction without focal abnormality and no seizure activity
Patient is extubated and off sedation
-Sepsis, secondary to COVID-19 infection: Stable
Patient was febrile for several days without an elevated white count. Initially this was thought to be a propofol reaction versus a bacterial infection however repeat COVID test on 03/28/2024 was positive. Patient was hypothermic at 96.6 �F,
tachycardic at 102 suggesting that COVID-19 was the causative factor.
Patient has completed Zosyn. Finished 1 dose of Decadron and 5 days of remdesivir
-Superficial venous thrombus: Monitoring
Swelling in left arm near peripheral line
Ultrasound confirmed left basilic vein thrombosis�line removed�will observe
-Hyponatremia: Resolved
Assess volume status and replete as needed
-Hyperbilirubinemia: Resolved
A possible component of hemolysis versus Gilbert's disease.
Continue to monitor
-Transaminitis likely secondary due to alcoholic fatty liver with possible compounding shock liver: Resolved
Patient had an elevated AST and ALT on admission with a ratio of 2:1
Has a history of alcohol use and obesity
-Lactic acidemia: Resolved
Was elevated immediately following his cardiac arrest. Has come back down.
-Asthma: Stable
Continue to monitor
-Bipolar disorder: Stable
Patient's mother states that he used to be on Lexapro but stopped on his own due to weight gain. Appreciate psychiatry consult. Psychiatry is under the impression that the patient's encephalopathy is due to a lot more than alcohol withdrawal.
Note that he had atrophy on his CAT scan well before he came to [facility] and notes numerous comorbidities including cardiac arrest which they believe are contributing to his cognitive decline. They recommended staying away from sedating
meds as much as possible. They also noted to be aware of IV Haldol usage as the patient had a prolonged QTc earlier in the admission.
Diet - IDDSI-6
DVT Ppx - SCDs
GI Ppx - Lansoprazole 30 BID
Code Status - Full Code
Imaging:
Brain MRI on 04/11/2024: No MRI evidence for acute infarct. Bilateral mastoid effusions. Moderate age-related parenchymal atrophy. No masslike effect, midline shift, or extra-axial collection.
Anticipated Discharge: 24 - 48 hours
Subjective/Interval History
-
Met with patient at the bedside. He is calm and pleasant in discussion but still does not speak coherently. When asked questions he may respond with an answer that is relevant to the question asked or he may go often to a tangential topic of his
own choosing. States that he 'gets Rich' each time he goes to the hospital. Made mention of finding jewelry in the hospital. Appears to be lying comfortably in bed.
Objective Data
-
Labs:
Labs
04/20/24 05:45
04/20/24 05:45
Vital Signs:
Vital Signs
Temp Pulse Resp BP Pulse Ox
97.6 F 66 20 100/67 94
04/20/24 02:30 04/20/24 02:30 04/20/24 02:30 04/20/24 02:30 04/20/24 03:07
I&O
04/19/24 04/20/24 04/21/24
06:59 06:59 06:59
Intake Total 1080 / 1080
Output Total 125 / 125 225 / 225
Balance -125 / -125 855 / 855
Review of Systems
-
History Source: Patient
Constitutional: Reports No Symptoms
EENT: Reports No Symptoms Reported
Respiratory: Reports No Symptoms
Cardiac: Reports No Symptoms
Abdomen/GI: Reports No Symptoms
Breast: Reports No Symptoms
Genitourinary: Reports No Symptoms
Musculoskeletal: Reports No Symptoms
Skin: Reports No Symptoms
Neuro: Reports No Symptoms
Endocrine: Reports No Symptoms
Physical Exam
-
General: Well Developed, Well Nourished, No Apparent Distress and Comfortable
HEENT: Normocephalic, Atraumatic and Moist Mucous Membranes
Respiratory: Clear to Auscultation and Non Labored Respirations
Cardiac: Regular Rhythm and S1/S2; Negative JVD
Breast: Deferred by me
GI: Soft, Nontender, Nondistended and Normal Bowel Sounds
Rectal: Deferred by Provider
Genito-urinary: Deferred by me
Musculoskeletal: No Clubbing, No Cyanosis and No Edema
Skin: Warm, Dry and Rash
Neuro: Awake, Alert, Oriented and AO x 3
Psych: Calm
[2024-04-20 07:42] LABS: ALT (SGPT) 51 U/L (0-50); AST (SGOT) 60 U/L (17-59); Albumin 4.4 g/dl (3.5-5.0); Alkaline Phosphatase 129 U/L (38-126); Blood Urea Nitrogen 20 mg/dl (9-20); Carbon Dioxide 23 mmol/L (22-30); Chloride 97 mmol/L (98-107); Estimated Creatinine Clearance 118 ml/min; Glucose 90 mg/dl (70-99); Potassium 4.4 mmol/L (3.5-5.1); Sodium 134 mmol/L (135-145); Total Bilirubin 0.9 mg/dl (0.2-1.3); eGFR > 60.00
--- NOTE | 2024-04-20 07:56 | W.PN.UPDATE ---
Update Note
Progress Note Update
I saw and evaluated the patient. I reviewed the resident�s note and agree with findings and plan as documented in the resident�s note.
Denies acute complaints. Somewhat confused.
Gen: NAD, Awake and alert
Eyes: EOMI, PERRLA, no scleral icterus.
Neck: supple.
CV: RRR, +S1/S2, no m/r/g.
Resp: CTAB, no rales, wheezes, or rhonchi.
Skin: No rashes.
Neuro: CN 2-12 intact, non-focal.
Psych: calm
MRI brain: No MRI evidence for an acute infarct.
Sepsis due to acute influenza A infection:
-new Dx 04/18/24AM
-cont Tamiflu 75mg PO BID x 5 days
-BP stable and EF 30-35%, no IVFs at this moment
-Sepsis will cause acute metabolic encephalopathy especially in the setting of anoxic brain injury
Persistent encephalopathy:
-suspect combination of Wernicke's encephalopathy from long-term alcohol dependence/use plus anoxic injury from PEA arrest (anoxic brain injury)
-cont thiamine/folate
-maintain abstinence from ETOH
-MRI brain unremarkable as above
-time will tell if improvement will be had (very unlikely)
-ammonia normal
-cont seroquel/haldol PRN
-psych saw in c/s
-pt is candidate for [facility] at [place] but needs to be off restraints and 1:1 for at least 24 hours prior to d/c
Persistent Afib:
-was on cardizem drip, now off
-cont Digoxin/Toprol XL/Eliquis
Acute on chronic HFrEF:
-Echo EF 30-35% with global hypokinesis w/ small pericardial effusion
-cont Lasix/Farxiga/Aldactone/Entresto/Toprol XL (holding parameters adjusted to SBP<90)
-cards to see in follow up today (discussed with Dr. East at 0901 today)
Dysphagia:
-IDDSI 6 diet
Essential Hypertension:
-cont Lasix/Aldactone/Entresto/Toprol XL
Resolved acute issues:
Anemia likely acute from blood loss (epistaxis/GI bleed) in combination from Eliquis, with iron deficiency component--s/p pRBC--HGB stable--cont protonix
Vtach Cardiac Arrest w/ CPR--TTM not initiated due to UGI bleed. Head CT showed atrophy and EEG showed diffuse cortical dysfunction without focal abnormality and no seizure activity- Extubated, off sedation
Sepsis, likely secondary to COVID-19 Infection- Febrile for several days without white count, initially thought propofol rxn vs. bacterial infection, however repeat covid test on 03/28/24 positive--s/p zosyn/decadron/Remdesivir
Alcohol Use Disorder w/possible withdrawal seizure- MSAS protocol. Thiamine and Folic acid, Ativan per protocol. Finished phenobarb taper.
Superficial Venous Thrombus - swelling in L arm near peripheral line, US confirmed L basilic vein thrombosis. Line removed--back on Eliquis
Upper GI Bleed w/ Epistaxis (resolved)- S/p 1u pRBCs. s/p TXA & cauterization for epistaxis. No signs of active bleeding on exam. Nasal packing removed. Will continue to monitor H&H. Transfuse if hgb <7.
Hyponatremia (resolved) - Off fluids. Assess volume status and replete as needed.
Hyperbilirubinemia (resolved) - possible component of hemolysis vs. Gilbert's Disease. Resolved now.
Transaminitis, likely alcoholic fatty liver, possible compounding shock liver (resolved) - Elevated AST/ALT on admission 2:1. history of alcohol use and obesity, possible chronic elevation from fatty liver vs. shock liver. AST/ALT normalized.
Lactic Acidosis (resolved) - was elevated immediately post cardiac arrest, has come back down. Blood gas showed metabolic acidosis without respiratory compensation; now normal pH.
Elevated troponins (resolved)- peaked, likely secondary to cardiac arrest.
Possible Aspiration Pneumonia, seen on admission (resolved as of 03/28/24)- Blood cx 03/27 NGTD x 48hrs, sputum cx showing usual yvette. COVID/Flu on admission negative. Completed IV Abx through 03/28.
Tracheitis-- Tracheal aspirate cx growing MSSA--no pna- finished Cefazolin course
Chronic stable conditions:
Asthma - was using his inhaler more frequently for night time shortness of breath [employer]. 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 sleep apnea vs. worsening Asthma, however history uncertain
Bipolar Disorder--- patient's mother states he was on Lexapro but stopped on his own due to weight gain--cont seroquel and PRN haldol, dose reduced
FULL/Eliquis
Remains medically cleared for discharge, case management aware.
[2024-04-20] MEDS: ENTRESTO 24 MG/26 MG PO ×2 (08:46→20:23)
[2024-04-20] MEDS: ALDACTONE PO (08:46)
[2024-04-20] MEDS: LASIX PO (08:47)
[2024-04-20] MEDS: FARXIGA 10 MG PO (08:48)
[2024-04-20] MEDS: VITAMIN B1 100 MG PO ×2 (08:48→20:22)
[2024-04-20] MEDS: SEROQUEL 100 MG PO ×2 (08:48→20:24)
[2024-04-20] MEDS: FOLVITE 1 MG PO (08:48)
[2024-04-20] MEDS: FEOSOL 325 MG PO (08:48)
[2024-04-20] MEDS: PROTONIX 40 MG PO ×2 (08:48→20:24)
[2024-04-20] MEDS: ELIQUIS 5 MG PO ×2 (08:48→20:22)
[2024-04-20] MEDS: TAMIFLU 75 MG PO ×2 (08:48→20:22)
[2024-04-20] MEDS: DESENEX/MITRAZOL/ZEASORB 1 APPLIC TOPICAL ×2 (08:50→21:17)
[2024-04-20] MEDS: ALDACTONE 25 MG PO (08:58)
[2024-04-20] MEDS: TOPROL XL 100 MG PO ×2 (08:58→20:23)
[2024-04-20] MEDS: ENTRESTO 24 MG/26 MG 1 TAB PO (08:58)
[2024-04-20] MEDS: LANOXIN 250 MCG PO (13:08)
[2024-04-20] MEDS: LASIX 20 MG PO (13:09)
[2024-04-20] MEDS: DUONEB 3 ML INH (13:46)
--- NOTE | 2024-04-20 14:07 | CM ---
Addendum entered by Keeley Beasley 04/20/24 15:03:
Spoke with patient mother Lesly.
Discussed other options of referrals.
Referrals to [facility] acute placed in [facility]
Addendum entered by Keeley Beasley 04/20/24 14:28:
Left message with mother Lesly regarding other referral options
Patient remains 1:1 which is a barrier as well.
Original Note:
Alyce from [facility] called
She also spoke with Marina Hay regarding patient.
States that they do not have a current private room at [facility] brain injury unit. (policy 7 days of testing +influenza (04/18), as well as behaviors)
Alyce states she spoke with patient mother & she would like patient to go drug/alcohol rehab after [facility]. Per Alyce they would need a transfer agreement.
PLAN: to be determined, ? [facility]
--- NOTE | 2024-04-21 03:10 | DOWNTIME ---
There was a [employer] Client Typer Downtime on 04/21/2024 from 0100 to 04/21/2023 at 0235 . Downtime documentation of patient's care, including medication administrations, has been reconciled in the electronic record per guidelines. Refer to the
patient's paper chart under the miscellaneous tab to see printed paper medication records and downtime forms.
--- NOTE | 2024-04-21 03:10 | DOWNTIME ---
There was a [employer] Client Line Mover Downtime on 04/21/2024 from 0100 to 04/21/2023 at 0235 . Downtime documentation of patient's care, including medication administrations, has been reconciled in the electronic record per guidelines. Refer to the
patient's paper chart under the miscellaneous tab to see printed paper medication records and downtime forms.
[2024-04-21 05:37] VITALS: BMI 31.7
[2024-04-21 06:37] LABS: Mean Corp Hgb Conc. 32.4 g/dL (33.0-37.0); Mean Corpuscular Hgb 26.5 pg (27.0-31.0); Mean Corpuscular Volume 81.9 fL (80.0-94.0); Mean Platelet Volume 10.1 fL (7.4-10.4); Platelet Count 279 10^3/uL (130-400); Red Blood Cell Count 4.52 10^6/uL (4.70-6.10); Red Cell Dist. Width 14.9 % (11.5-14.5); White Blood Cell Count 3.3 10^3/uL (4.8-10.8)
[2024-04-21 07:09] LABS: ALT (SGPT) 50 U/L (0-50); AST (SGOT) 51 U/L (17-59); Albumin 4.4 g/dl (3.5-5.0); Alkaline Phosphatase 132 U/L (38-126); Blood Urea Nitrogen 23 mg/dl (9-20); Calcium 9.2 mg/dl (8.4-10.2); Carbon Dioxide 23 mmol/L (22-30); Chloride 97 mmol/L (98-107); Estimated Creatinine Clearance 107 ml/min; Glucose 98 mg/dl (70-99); Potassium 4.3 mmol/L (3.5-5.1); Sodium 133 mmol/L (135-145); Total Protein 7.2 g/dl (6.3-8.2); eGFR > 60.00
[2024-04-21 07:22] VITALS: BP 89/58
--- NOTE | 2024-04-21 07:32 | W.PN.HOSP.TC ---
Today's Communication/Plan
-
The patient is currently hypotensive and his antihypertensive medications have been held with holding parameters of his systolic blood pressure less than 90.
Assessment / Plan
Assessment / Plan
Assessment/plan:
-Persistent altered mental status possibly due to Wernicke's encephalopathy secondary to long-term alcohol dependence: Improving
The patient has been getting thiamine and folate since his admission
Continue Ativan as per protocol
Continue Seroquel 100 mg p.o. twice daily
Patient is no longer sedated and is extubated
MRI conducted on 04/11/2024 showed moderate age-related parenchymal atrophy. No MRI evidence for an acute infarct. Bilateral mastoid effusions. No mass effect, midline shift or extra-axial collection no abnormal signal intensity on
diffusion-weighted images.
Status unchanged from 04/13/2024
Haldol dosage was reduced to 1 mg IV every 8 hours as needed after recommendations from psychiatry. The patient is much more clear after this medication adjustment.
The patient's current mental status appears to be the patient's new baseline
-Alcohol use disorder with possible withdrawal seizure - Monitoring
On 03/24/2024 the patient was seen with seizure-like activity before becoming unresponsive requiring ACLS
MSAS protocol
Continue thiamine and folic acid with Ativan as per protocol.
Phenobarbital taper completed.
Ammonia level less than 9
-Ambulatory Dysfunction:
Patient is much clearer on 04/14/2024 but remains unable to be steady on his feet.
PT OT evaluation recommends that the patient receive acute rehab upon discharge.
Appreciate PMNR evaluation -patient would be a candidate for [facility] at [place]. The patient would need to be off of restraints for and not on a one-to-one for at least 24 hours prior to discharge.
-Sepsis secondary to acute Influenza A Infection:
Nasal swab on 04/18/2024 positive for influenza A
White blood cells 4.0 on 04/19/2024
Blood pressure 99/64 on 04/19/2024
Pulse 101 on 04/18 at 19: 26
Temperature 101.2 on 04/18 at 19: 26
Elevated alkaline phosphatase at 140
Tamiflu 75 mg p.o. twice daily started for 5 days
Continue Tamiflu
-Hyperkalemia:
Potassium is 5.3 on 04/13/2024
The slight elevation may be due to lysis during blood draw -will recheck on next draw
Potassium 4.5 on 04/19/2024
-Persistent atrial fibrillation: Monitoring
Patient is on Toprol-XL 100 mg twice daily
Patient currently on digoxin 250 mcg -check digoxin levels on the day of discharge and again 1 month after discharge
Cardiology restarted benazepril on 04/12/2024
Cardiology recommends avoiding usage calcium channel blockers if possible given reduced left ventricular ejection fraction
Sacubitril/valsartan 24 mg / 26 mg twice daily started
Patient is still scheduled for PVI on May 2024
-Anemia, multifactorial with iron deficiency: Stable
On a PPI with lansoprazole
Persistently low hemoglobin around 9 despite no obvious signs of bleed
Iron, iron saturation, and ferritin were low on prior labs. Continue oral iron
-Essential hypertension:
Continue metoprolol tartarate 5 mg IV every 4 hours as needed
Continue metoprolol succinate 100 mg p.o. twice daily
-Dysphagia: Stable
Cleared for IDDSI�6 diet by speech therapy
-Tracheitis: Stable
Tracheal aspirate culture sample grew MSSA
Finished cefazolin course
-Acute on chronic HFrEF: Stable
Prior echo shows ejection fraction of 30 to 35% with global hypokinesis and small pericardial effusion
Continue Farxiga/Entresto/Toprol-XL with holding parameters adjusted to systolic blood pressure < 90
Cardiology believes the the patient is hypovolemic and has stopped Lasix and Aldactone. They have set up an outpatient follow-up.
-V. tach cardiac arrest with CPR: Monitoring
Chest x-ray did not show any osseous abnormality
Weaned off pressure support
Head CT shows atrophy and EEG showed diffuse cortical dysfunction without focal abnormality and no seizure activity
Patient is extubated and off sedation
-Sepsis, secondary to COVID-19 infection: Stable
Patient was febrile for several days without an elevated white count. Initially this was thought to be a propofol reaction versus a bacterial infection however repeat COVID test on 03/28/2024 was positive. Patient was hypothermic at 96.6 �F,
tachycardic at 102 suggesting that COVID-19 was the causative factor.
Patient has completed Zosyn. Finished 1 dose of Decadron and 5 days of remdesivir
-Superficial venous thrombus: Monitoring
Swelling in left arm near peripheral line
Ultrasound confirmed left basilic vein thrombosis�line removed�will observe
-Hyponatremia: Resolved
Assess volume status and replete as needed
-Hyperbilirubinemia: Resolved
A possible component of hemolysis versus Gilbert's disease.
Continue to monitor
-Transaminitis likely secondary due to alcoholic fatty liver with possible compounding shock liver: Resolved
Patient had an elevated AST and ALT on admission with a ratio of 2:1
Has a history of alcohol use and obesity
-Lactic acidemia: Resolved
Was elevated immediately following his cardiac arrest. Has come back down.
-Asthma: Stable
Continue to monitor
-Bipolar disorder: Stable
Patient's mother states that he used to be on Lexapro but stopped on his own due to weight gain. Appreciate psychiatry consult. Psychiatry is under the impression that the patient's encephalopathy is due to a lot more than alcohol withdrawal.
Note that he had atrophy on his CAT scan well before he came to [facility] and notes numerous comorbidities including cardiac arrest which they believe are contributing to his cognitive decline. They recommended staying away from sedating
meds as much as possible. They also noted to be aware of IV Haldol usage as the patient had a prolonged QTc earlier in the admission.
Diet - IDDSI-6
DVT Ppx - SCDs
GI Ppx - Lansoprazole 30 BID
Code Status - Full Code
Imaging:
Brain MRI on 04/11/2024: No MRI evidence for acute infarct. Bilateral mastoid effusions. Moderate age-related parenchymal atrophy. No masslike effect, midline shift, or extra-axial collection.
Anticipated Discharge: Within 24 hours
Subjective/Interval History
-
Met with patient at the bedside. Overall he is doing well and offers no complaints at the present time.
Objective Data
-
Labs:
Laboratory Results
04/21/24
06:10
WBC 3.3 L
Hgb 12.0 L
Hct 37.0 L
Plt Count 279
Sodium 133 L
Potassium 4.3
Chloride 97 L
Carbon Dioxide 23
BUN 23 H
Creatinine 1.2
Glucose 98
Calcium 9.2
Total Bilirubin 1.0
AST 51
ALT 50
Alkaline Phosphatase 132 H
Vital Signs:
Vital Signs
Temp Pulse Resp BP Pulse Ox
98.0 F 82 16 89/58 98
04/21/24 07:22 04/21/24 07:22 04/21/24 07:22 04/21/24 07:22 04/21/24 07:22
I&O
04/20/24 04/21/24 04/22/24
06:59 06:59 06:59
Intake Total 1080 / 1080 1440 / 1440
Output Total 225 / 225
Balance 855 / 855 1440 / 1440
Review of Systems
-
History Source: Patient
Constitutional: Reports No Symptoms
EENT: Reports No Symptoms Reported
Respiratory: Reports No Symptoms
Cardiac: Reports No Symptoms
Abdomen/GI: Reports No Symptoms
Breast: Reports No Symptoms
Genitourinary: Reports No Symptoms
Musculoskeletal: Reports No Symptoms
Skin: Reports No Symptoms
Neuro: Reports No Symptoms
Endocrine: Reports No Symptoms
Physical Exam
-
General: Well Developed, Well Nourished, No Apparent Distress and Comfortable
HEENT: Normocephalic and Moist Mucous Membranes
Respiratory: Clear to Auscultation
Cardiac: S1/S2; Negative Murmur, Rub or JVD
Breast: Deferred by me
GI: Soft, Nontender, Nondistended and Normal Bowel Sounds
Rectal: Deferred by Provider
Genito-urinary: Deferred by me
Musculoskeletal: No Clubbing, No Cyanosis and No Edema
Skin: Warm and Dry
Neuro: Awake, Alert, Oriented and AO x 3
Psych: Calm
[2024-04-21] MEDS: DESENEX/MITRAZOL/ZEASORB 1 APPLIC TOPICAL ×2 (08:06→20:30)
[2024-04-21] MEDS: ENTRESTO 24 MG/26 MG PO (08:07)
[2024-04-21] MEDS: ALDACTONE PO (08:07)
[2024-04-21] MEDS: FEOSOL 325 MG PO (08:07)
[2024-04-21] MEDS: FARXIGA 10 MG PO (08:07)
[2024-04-21] MEDS: LASIX PO (08:07)
[2024-04-21] MEDS: TOPROL XL 100 MG PO (08:08)
[2024-04-21] MEDS: VITAMIN B1 100 MG PO ×2 (08:08→20:41)
[2024-04-21] MEDS: TAMIFLU 75 MG PO ×2 (08:08→20:29)
[2024-04-21] MEDS: FOLVITE 1 MG PO (08:08)
[2024-04-21] MEDS: ELIQUIS 5 MG PO ×2 (08:08→20:28)
[2024-04-21] MEDS: PROTONIX 40 MG PO ×2 (08:08→20:29)
[2024-04-21] MEDS: SEROQUEL 100 MG PO ×2 (08:08→20:29)
--- NOTE | 2024-04-21 09:15 | W.PN.UPDATE ---
Update Note
Progress Note Update
I saw and evaluated the patient. I reviewed the resident�s note and agree with findings and plan as documented in the resident�s note.
Patient sleeping.
Gen: NAD, Awake and alert
CV: RRR, +S1/S2, no m/r/g.
Resp: CTAB anteriorly, no rales, wheezes, or rhonchi.
Abd: +BS/soft/NT/ND
Skin: No rashes.
Psych: calm
MRI brain: No MRI evidence for an acute infarct.
Sepsis due to acute influenza A infection:
-new Dx 04/18/24AM
-cont Tamiflu 75mg PO BID x 5 days
-BP stable and EF 30-35%, no IVFs at this moment
-Sepsis will cause acute metabolic encephalopathy especially in the setting of anoxic brain injury
Persistent encephalopathy:
-suspect combination of Wernicke's encephalopathy from long-term alcohol dependence/use plus anoxic injury from PEA arrest (anoxic brain injury)
-cont thiamine/folate
-maintain abstinence from ETOH
-MRI brain unremarkable as above
-time will tell if improvement will be had (very unlikely)
-ammonia normal
-cont seroquel/haldol PRN
-psych saw in c/s
-pt is candidate for [facility] at [facility] but needs to be off restraints and 1:1 for at least 24 hours prior to d/c
-In my professional opinion the patient's encephalopathy will never improve
Persistent Afib:
-was on cardizem drip, now off
-cont Digoxin/Toprol XL/Eliquis
Acute on chronic HFrEF:
-Echo EF 30-35% with global hypokinesis w/ small pericardial effusion
-cont Farxiga/Entresto/Toprol XL (holding parameters adjusted to SBP<90)
-hold Lasix/Aldactone with hypotension
-give 500cc NS @ 75cc/hr
-cards to see in follow up today (discussed with Dr. Silva at 0916 today)
Dysphagia:
-IDDSI 6 diet
Essential Hypertension:
-cont Lasix/Aldactone/Entresto/Toprol XL with holding parameters
Obesity due to excess calories
Resolved acute issues:
Anemia likely acute from blood loss (epistaxis/GI bleed) in combination from Eliquis, with iron deficiency component--s/p pRBC--HGB stable--cont protonix
Vtach Cardiac Arrest w/ CPR--TTM not initiated due to UGI bleed. Head CT showed atrophy and EEG showed diffuse cortical dysfunction without focal abnormality and no seizure activity- Extubated, off sedation
Sepsis, likely secondary to COVID-19 Infection- Febrile for several days without white count, initially thought propofol rxn vs. bacterial infection, however repeat covid test on 03/28/24 positive--s/p zosyn/decadron/Remdesivir
Alcohol Use Disorder w/possible withdrawal seizure- MSAS protocol. Thiamine and Folic acid, Ativan per protocol. Finished phenobarb taper.
Superficial Venous Thrombus - swelling in L arm near peripheral line, US confirmed L basilic vein thrombosis. Line removed--back on Eliquis
Upper GI Bleed w/ Epistaxis (resolved)- S/p 1u pRBCs. s/p TXA & cauterization for epistaxis. No signs of active bleeding on exam. Nasal packing removed. Will continue to monitor H&H. Transfuse if hgb <7.
Hyponatremia (resolved) - Off fluids. Assess volume status and replete as needed.
Hyperbilirubinemia (resolved) - possible component of hemolysis vs. Gilbert's Disease. Resolved now.
Transaminitis, likely alcoholic fatty liver, possible compounding shock liver (resolved) - Elevated AST/ALT on admission 2:1. history of alcohol use and obesity, possible chronic elevation from fatty liver vs. shock liver. AST/ALT normalized.
Lactic Acidosis (resolved) - was elevated immediately post cardiac arrest, has come back down. Blood gas showed metabolic acidosis without respiratory compensation; now normal pH.
Elevated troponins (resolved)- peaked, likely secondary to cardiac arrest.
Possible Aspiration Pneumonia, seen on admission (resolved as of 03/28/24)- Blood cx 03/27 NGTD x 48hrs, sputum cx showing usual yvette. COVID/Flu on admission negative. Completed IV Abx through 03/28.
Tracheitis-- Tracheal aspirate cx growing MSSA--no pna- finished Cefazolin course
Chronic stable conditions:
Asthma - was using his inhaler more frequently for night time shortness of breath [employer]. 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 sleep apnea vs. worsening Asthma, however history uncertain
Bipolar Disorder--- patient's mother states he was on Lexapro but stopped on his own due to weight gain--cont seroquel and PRN haldol, dose reduced
FULL/Eliquis
No discharge today with hypotension.
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
[2024-04-21] MEDS: NSS 500 IV (10:03)
[2024-04-21 12:53] VITALS: BP 93/60
--- NOTE | 2024-04-21 15:02 | CM ---
Patient continues with 1:1
CM spoke with Alyce from [facility] - phone #[phone] given of patient's mom & she will call her
No private bed at [facility]
Additional referrals sent
Spoke with Natalie from [facility] ([phone])
States they have a brain injury unit & will review referral - states barrier is 1:1 as well as IV haldol
Will get back to CM
PLAN: Acute rehab, pending bed availability when medically stable
[2024-04-21 15:33] VITALS: BP 102/56
[2024-04-21] MEDS: TOPROL XL PO ×2 (20:28→22:41)
[2024-04-21] MEDS: ENTRESTO 24 MG/26 MG 1 TAB PO (20:29)
[2024-04-21] MEDS: VITAMIN B1 PO (20:29)
[2024-04-21 23:04] VITALS: BP 102/65
[2024-04-22 06:00] VITALS: BMI 31.3
[2024-04-22 07:19] VITALS: BP 113/77
--- NOTE | 2024-04-22 07:40 | W.PN.HOSP.TC ---
Today's Communication/Plan
-
The patient is medically stable and has been cleared by cardiology for follow-up in the outpatient setting. Bed placement continues to be a barrier for discharge for this patient. Current plan is acute rehab pending bed availability.
Assessment / Plan
Assessment / Plan
Assessment/plan:
-Persistent altered mental status possibly due to Wernicke's encephalopathy secondary to long-term alcohol dependence: Improving
The patient has been getting thiamine and folate since his admission
Continue Ativan as per protocol
Continue Seroquel 100 mg p.o. twice daily
Patient is no longer sedated and is extubated
MRI conducted on 04/11/2024 showed moderate age-related parenchymal atrophy. No MRI evidence for an acute infarct. Bilateral mastoid effusions. No mass effect, midline shift or extra-axial collection no abnormal signal intensity on
diffusion-weighted images.
Status unchanged from 04/13/2024
Haldol dosage was reduced to 1 mg IV every 8 hours as needed after recommendations from psychiatry. The patient is much more clear after this medication adjustment.
The patient's current mental status appears to be the patient's new baseline
-Alcohol use disorder with possible withdrawal seizure - Monitoring
On 03/24/2024 the patient was seen with seizure-like activity before becoming unresponsive requiring ACLS
MSAS protocol
Continue thiamine and folic acid with Ativan as per protocol.
Phenobarbital taper completed.
Ammonia level less than 9
-Ambulatory Dysfunction:
Patient is much clearer on 04/14/2024 but remains unable to be steady on his feet.
PT OT evaluation recommends that the patient receive acute rehab upon discharge.
Appreciate PMNR evaluation -patient would be a candidate for [facility] at [facility]. The patient would need to be off of restraints for and not on a one-to-one for at least 24 hours prior to discharge.
-Sepsis secondary to acute Influenza A Infection:
Nasal swab on 04/18/2024 positive for influenza A
White blood cells 4.0 on 04/19/2024
Blood pressure 99/64 on 04/19/2024
Pulse 101 on 04/18 at 19: 26
Temperature 101.2 on 04/18 at 19: 26
Elevated alkaline phosphatase at 140
Tamiflu 75 mg p.o. twice daily started for 5 days
Continue Tamiflu
500 mL of fluid given yesterday due to concerns of hypovolemia
-Hyperkalemia:
Potassium is 5.3 on 04/13/2024
The slight elevation may be due to lysis during blood draw -will recheck on next draw
Potassium 4.5 on 04/19/2024
-Persistent atrial fibrillation: Monitoring
Patient is on Toprol-XL 100 mg twice daily
Patient currently on digoxin 250 mcg -check digoxin levels on the day of discharge and again 1 month after discharge
Cardiology restarted benazepril on 04/12/2024
Cardiology recommends avoiding usage calcium channel blockers if possible given reduced left ventricular ejection fraction
Sacubitril/valsartan 24 mg / 26 mg twice daily started
Patient is still scheduled for PVI on May 2024
Cardiology recommended that the patient stop his Lasix and Aldactone and continue Entresto/Farxiga/Toprol with hold parameters. -Cardiology signed off with outpatient follow-up arrangements made
Heart rate is better controlled�stop digoxin -digoxin level ordered
-Anemia, multifactorial with iron deficiency: Stable
On a PPI with lansoprazole
Persistently low hemoglobin around 9 despite no obvious signs of bleed
Iron, iron saturation, and ferritin were low on prior labs. Continue oral iron
-Essential hypertension:
Continue metoprolol tartarate 5 mg IV every 4 hours as needed
Continue metoprolol succinate 100 mg p.o. twice daily
-Dysphagia: Stable
Cleared for IDDSI�6 diet by speech therapy
-Tracheitis: Stable
Tracheal aspirate culture sample grew MSSA
Finished cefazolin course
-Acute on chronic HFrEF: Stable
Prior echo shows ejection fraction of 30 to 35% with global hypokinesis and small pericardial effusion
Continue Farxiga/Entresto/Toprol-XL with holding parameters adjusted to systolic blood pressure < 90
Cardiology believes the the patient is hypovolemic and has stopped Lasix and Aldactone. They have set up an outpatient follow-up.
-V. tach cardiac arrest with CPR: Monitoring
Chest x-ray did not show any osseous abnormality
Weaned off pressure support
Head CT shows atrophy and EEG showed diffuse cortical dysfunction without focal abnormality and no seizure activity
Patient is extubated and off sedation
-Sepsis, secondary to COVID-19 infection: Stable
Patient was febrile for several days without an elevated white count. Initially this was thought to be a propofol reaction versus a bacterial infection however repeat COVID test on 03/28/2024 was positive. Patient was hypothermic at 96.6 �F,
tachycardic at 102 suggesting that COVID-19 was the causative factor.
Patient has completed Zosyn. Finished 1 dose of Decadron and 5 days of remdesivir
-Superficial venous thrombus: Monitoring
Swelling in left arm near peripheral line
Ultrasound confirmed left basilic vein thrombosis�line removed�will observe
-Hyponatremia: Resolved
Assess volume status and replete as needed
-Hyperbilirubinemia: Resolved
A possible component of hemolysis versus Gilbert's disease.
Continue to monitor
-Transaminitis likely secondary due to alcoholic fatty liver with possible compounding shock liver: Resolved
Patient had an elevated AST and ALT on admission with a ratio of 2:1
Has a history of alcohol use and obesity
-Lactic acidemia: Resolved
Was elevated immediately following his cardiac arrest. Has come back down.
-Asthma: Stable
Continue to monitor
-Bipolar disorder: Stable
Patient's mother states that he used to be on Lexapro but stopped on his own due to weight gain. Appreciate psychiatry consult. Psychiatry is under the impression that the patient's encephalopathy is due to a lot more than alcohol withdrawal.
Note that he had atrophy on his CAT scan well before he came to [facility] and notes numerous comorbidities including cardiac arrest which they believe are contributing to his cognitive decline. They recommended staying away from sedating
meds as much as possible. They also noted to be aware of IV Haldol usage as the patient had a prolonged QTc earlier in the admission.
Diet - IDDSI-6
DVT Ppx - SCDs
GI Ppx - Lansoprazole 30 BID
Code Status - Full Code
Imaging:
Brain MRI on 04/11/2024: No MRI evidence for acute infarct. Bilateral mastoid effusions. Moderate age-related parenchymal atrophy. No masslike effect, midline shift, or extra-axial collection.
Anticipated Discharge: 24 - 48 hours
Subjective/Interval History
-
Date of Service: April 22, 2024
Met with patient at the bedside. He is seen lying comfortably in bed and resting. Patient made a joke about his animal T-shirt. When asked about how his evening went the patient said 'went like shit' then proceeded to laugh.
Objective Data
-
Labs:
Labs
04/22/24 07:45
04/22/24 07:45
Vital Signs:
Vital Signs
Temp Pulse Resp BP Pulse Ox
98.1 F 87 18 113/77 96
04/22/24 07:19 04/22/24 07:19 04/22/24 07:19 04/22/24 07:19 04/22/24 07:19
I&O
04/21/24 04/22/24 04/23/24
06:59 06:59 06:59
Intake Total 1440 / 1440 1300 / 1300
Output Total 1924 / 1924
Balance 1440 / 1440 -625 / -625
Review of Systems
-
History Source: Patient
Constitutional: Reports No Symptoms
EENT: Reports No Symptoms Reported
Respiratory: Reports No Symptoms
Cardiac: Reports No Symptoms
Abdomen/GI: Reports Bloated (A little bloated on the right side)
Breast: Reports No Symptoms
Genitourinary: Reports No Symptoms
Musculoskeletal: Reports No Symptoms
Skin: Reports No Symptoms
Neuro: Reports No Symptoms
Endocrine: Reports No Symptoms
Hematologic / Lymphatic: Reports No Symptoms
Allergy / Immunology: Reports No Symptoms
Physical Exam
-
General: Well Developed, Well Nourished, No Apparent Distress and Obese
HEENT: Normocephalic, Atraumatic and Moist Mucous Membranes
Respiratory: Clear to Auscultation
Cardiac: Regular Rhythm and S1/S2; Negative Murmur, Rub or JVD
Breast: Deferred by me
GI: Soft, Nontender and Nondistended
Rectal: Deferred by Provider
Genito-urinary: Deferred by me
Musculoskeletal: No Clubbing, No Cyanosis and No Edema
Skin: Warm, Dry and Normal Turgor
Neuro: Awake, Alert and Oriented
Psych: Calm
--- NOTE | 2024-04-22 07:52 | W.PN.UPDATE ---
Update Note
Progress Note Update
I saw and evaluated the patient. I reviewed the resident�s note and agree with findings and plan as documented in the resident�s note.
Patient sleeping.
Gen: NAD, Awake and alert
CV: remains RRR, +S1/S2, no m/r/g.
Resp: remains CTAB anteriorly, no rales, wheezes, or rhonchi.
Abd: remains +BS/soft/NT/ND
Skin: No rashes.
Psych: calm
MRI brain: No MRI evidence for an acute infarct.
Sepsis due to acute influenza A infection:
-new Dx 04/18/24AM
-cont Tamiflu 75mg PO BID x 5 days
-BP stable and EF 30-35%, no IVFs at this moment
-Sepsis will cause acute metabolic encephalopathy especially in the setting of anoxic brain injury
Persistent encephalopathy:
-suspect combination of Wernicke's encephalopathy from long-term alcohol dependence/use plus anoxic injury from PEA arrest (anoxic brain injury)
-cont thiamine/folate
-maintain abstinence from ETOH
-MRI brain unremarkable as above
-time will tell if improvement will be had (very unlikely)
-ammonia normal
-cont seroquel/haldol PRN
-psych saw in c/s
-pt is candidate for [facility] at [place] but needs to be off restraints and 1:1 for at least 24 hours prior to d/c
-In my professional opinion the patient's encephalopathy will never improve
Persistent Afib:
-was on cardizem drip, now off
-cont Digoxin/Toprol XL/Eliquis
Acute on chronic HFrEF:
-Echo EF 30-35% with global hypokinesis w/ small pericardial effusion
-cont Farxiga/Entresto/Toprol XL (holding parameters adjusted to SBP<90)
-Lasix/Aldactone stopped with hypotension likely due to hypovolemia due to influenza A infection on 04/21/24. Received IVFs on on 04/21/24.
-cards saw in c/s
Dysphagia:
-IDDSI 6 diet
Essential Hypertension:
-cont Lasix/Aldactone/Entresto/Toprol XL with holding parameters
Obesity due to excess calories
Resolved acute issues:
Anemia likely acute from blood loss (epistaxis/GI bleed) in combination from Eliquis, with iron deficiency component--s/p pRBC--HGB stable--cont protonix
Vtach Cardiac Arrest w/ CPR--TTM not initiated due to UGI bleed. Head CT showed atrophy and EEG showed diffuse cortical dysfunction without focal abnormality and no seizure activity- Extubated, off sedation
Sepsis, likely secondary to COVID-19 Infection- Febrile for several days without white count, initially thought propofol rxn vs. bacterial infection, however repeat covid test on 03/28/24 positive--s/p zosyn/decadron/Remdesivir
Alcohol Use Disorder w/possible withdrawal seizure- MSAS protocol. Thiamine and Folic acid, Ativan per protocol. Finished phenobarb taper.
Superficial Venous Thrombus - swelling in L arm near peripheral line, US confirmed L basilic vein thrombosis. Line removed--back on Eliquis
Upper GI Bleed w/ Epistaxis (resolved)- S/p 1u pRBCs. s/p TXA & cauterization for epistaxis. No signs of active bleeding on exam. Nasal packing removed. Will continue to monitor H&H. Transfuse if hgb <7.
Hyponatremia (resolved) - Off fluids. Assess volume status and replete as needed.
Hyperbilirubinemia (resolved) - possible component of hemolysis vs. Gilbert's Disease. Resolved now.
Transaminitis, likely alcoholic fatty liver, possible compounding shock liver (resolved) - Elevated AST/ALT on admission 2:1. history of alcohol use and obesity, possible chronic elevation from fatty liver vs. shock liver. AST/ALT normalized.
Lactic Acidosis (resolved) - was elevated immediately post cardiac arrest, has come back down. Blood gas showed metabolic acidosis without respiratory compensation; now normal pH.
Elevated troponins (resolved)- peaked, likely secondary to cardiac arrest.
Possible Aspiration Pneumonia, seen on admission (resolved as of 03/28/24)- Blood cx 03/27 NGTD x 48hrs, sputum cx showing usual yvette. COVID/Flu on admission negative. Completed IV Abx through 03/28.
Tracheitis-- Tracheal aspirate cx growing MSSA--no pna- finished Cefazolin course
Chronic stable conditions:
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 sleep apnea vs. worsening Asthma, however history uncertain
Bipolar Disorder--- patient's mother states he was on Lexapro but stopped on his own due to weight gain--cont seroquel and PRN haldol, dose reduced
FULL/Eliquis
Medically cleared for discharge. Case management aware.
[2024-04-22 07:57] LABS: Hematocrit 36.5 % (39.0-52.0); Hemoglobin 11.7 g/dL (13.0-18.0); Mean Corp Hgb Conc. 32.1 g/dL (33.0-37.0); Mean Corpuscular Hgb 26.4 pg (27.0-31.0); Mean Corpuscular Volume 82.2 fL (80.0-94.0); Platelet Count 248 10^3/uL (130-400); Red Blood Cell Count 4.44 10^6/uL (4.70-6.10); Red Cell Dist. Width 14.8 % (11.5-14.5); White Blood Cell Count 3.2 10^3/uL (4.8-10.8)
[2024-04-22 08:14] LABS: ALT (SGPT) 51 U/L (0-50); AST (SGOT) 46 U/L (17-59); Albumin 3.9 g/dl (3.5-5.0); Alkaline Phosphatase 129 U/L (38-126); Blood Urea Nitrogen 14 mg/dl (9-20); Carbon Dioxide 25 mmol/L (22-30); Chloride 102 mmol/L (98-107); Estimated Creatinine Clearance > 125 ml/min; Glucose 107 mg/dl (70-99); Potassium 4.4 mmol/L (3.5-5.1); Sodium 136 mmol/L (135-145); Total Bilirubin 0.7 mg/dl (0.2-1.3); Total Protein 6.7 g/dl (6.3-8.2); eGFR > 60.00
[2024-04-22] MEDS: TAMIFLU 75 MG PO ×2 (08:20→20:10)
[2024-04-22] MEDS: ELIQUIS 5 MG PO ×2 (08:20→20:09)
[2024-04-22] MEDS: FOLVITE 1 MG PO (08:20)
[2024-04-22] MEDS: DESENEX/MITRAZOL/ZEASORB 1 APPLIC TOPICAL ×2 (08:20→20:08)
[2024-04-22] MEDS: FEOSOL 325 MG PO (08:20)
[2024-04-22] MEDS: SEROQUEL 100 MG PO ×2 (08:20→20:09)
[2024-04-22] MEDS: TOPROL XL 100 MG PO ×2 (08:20→20:09)
[2024-04-22] MEDS: PROTONIX 40 MG PO ×2 (08:20→20:09)
[2024-04-22] MEDS: FARXIGA 10 MG PO (08:20)
[2024-04-22] MEDS: VITAMIN B1 100 MG PO ×2 (08:20→20:09)
[2024-04-22] MEDS: ENTRESTO 24 MG/26 MG 1 TAB PO ×2 (08:20→22:08)
--- NOTE | 2024-04-22 10:09 | CM ---
Call received from Alyce Wolff/ [facility]. She stated that their TBI Unit is now requesting that the patient be off of 1:1 before they can accept. She also stated that she spoke to the patient's Mother in regards to the proposed discharge plan after
a stay in acute Rehab. Alyce made her aware that patient would most likely not be accepted at any drug/ETOH Rehab and that there would need to be an alternate plan. Alyce also stated that if [facility] should accept this patient then they would
require to sign a transfer agreement(i.e. Buy Back agreement). Update to .
[2024-04-22 10:36] LABS: Digoxin 0.6 ng/ml (0.8-2.0)
[2024-04-22 14:15] VITALS: BP 94/61; PULSE 73; O2SAT 96
[2024-04-22 15:15] VITALS: BP 92/58
[2024-04-22 23:05] VITALS: BP 116/70
[2024-04-23 05:56] VITALS: BMI 31.4
--- NOTE | 2024-04-23 07:34 | W.PN.HOSP.TC ---
Today's Communication/Plan
-
The patient remains on a one-to-one but is at his current baseline. The patient's systolic blood pressure was in the 80s and midodrine 2.5 mg 3 times daily was added.
Assessment / Plan
Assessment / Plan
Assessment/plan:
-Persistent altered mental status possibly due to Wernicke's encephalopathy secondary to long-term alcohol dependence: Improving
The patient has been getting thiamine and folate since his admission
Continue Ativan as per protocol
Continue Seroquel 100 mg p.o. twice daily
Patient is no longer sedated and is extubated
MRI conducted on 04/11/2024 showed moderate age-related parenchymal atrophy. No MRI evidence for an acute infarct. Bilateral mastoid effusions. No mass effect, midline shift or extra-axial collection no abnormal signal intensity on
diffusion-weighted images.
Status unchanged from 04/13/2024
Haldol dosage was reduced to 1 mg IV every 8 hours as needed after recommendations from psychiatry. The patient is much more clear after this medication adjustment.
The patient's current mental status appears to be the patient's new baseline
-Alcohol use disorder with possible withdrawal seizure - Monitoring
On 03/24/2024 the patient was seen with seizure-like activity before becoming unresponsive requiring ACLS
MSAS protocol
Continue thiamine and folic acid with Ativan as per protocol.
Phenobarbital taper completed.
Ammonia level less than 9
-Ambulatory Dysfunction:
Patient is much clearer on 04/14/2024 but remains unable to be steady on his feet.
PT OT evaluation recommends that the patient receive acute rehab upon discharge.
Appreciate PMNR evaluation -patient would be a candidate for [facility] at [place]. The patient would need to be off of restraints for and not on a one-to-one for at least 24 hours prior to discharge.
-Sepsis secondary to acute Influenza A Infection:
Nasal swab on 04/18/2024 positive for influenza A
White blood cells 4.0 on 04/19/2024
Blood pressure 99/64 on 04/19/2024
Pulse 101 on 04/18 at 19: 26
Temperature 101.2 on 04/18 at 19: 26
Elevated alkaline phosphatase at 140
Tamiflu 75 mg p.o. twice daily started for 5 days
Continue Tamiflu
500 mL of fluid given yesterday due to concerns of hypovolemia
-Hyperkalemia:
Potassium is 5.3 on 04/13/2024
The slight elevation may be due to lysis during blood draw -will recheck on next draw
Potassium 4.5 on 04/19/2024
-Persistent atrial fibrillation: Monitoring
Patient is on Toprol-XL 100 mg twice daily
Patient currently on digoxin 250 mcg -check digoxin levels on the day of discharge and again 1 month after discharge
Cardiology restarted benazepril on 04/12/2024
Cardiology recommends avoiding usage calcium channel blockers if possible given reduced left ventricular ejection fraction
Sacubitril/valsartan 24 mg / 26 mg twice daily started
Patient is still scheduled for [facility] on May 2024
Cardiology recommended that the patient stop his Lasix and Aldactone and continue Entresto/Farxiga/Toprol with hold parameters. -Cardiology signed off with outpatient follow-up arrangements made
Heart rate is better controlled�stop digoxin -digoxin level ordered
Patient systolic blood pressure was in the 80s on 04/23/2024�midodrine 2.5 mg 3 times daily added
-Anemia, multifactorial with iron deficiency: Stable
On a PPI with lansoprazole
Persistently low hemoglobin around 9 despite no obvious signs of bleed
Iron, iron saturation, and ferritin were low on prior labs. Continue oral iron
-Essential hypertension:
Continue metoprolol tartarate 5 mg IV every 4 hours as needed
Continue metoprolol succinate 100 mg p.o. twice daily
-Dysphagia: Stable
Cleared for IDDSI�6 diet by speech therapy
-Tracheitis: Stable
Tracheal aspirate culture sample grew MSSA
Finished cefazolin course
-Acute on chronic HFrEF: Stable
Prior echo shows ejection fraction of 30 to 35% with global hypokinesis and small pericardial effusion
Continue Farxiga/Entresto/Toprol-XL with holding parameters adjusted to systolic blood pressure < 90
Cardiology believes the the patient is hypovolemic and has stopped Lasix and Aldactone. They have set up an outpatient follow-up.
-V. tach cardiac arrest with CPR: Monitoring
Chest x-ray did not show any osseous abnormality
Weaned off pressure support
Head CT shows atrophy and EEG showed diffuse cortical dysfunction without focal abnormality and no seizure activity
Patient is extubated and off sedation
-Sepsis, secondary to COVID-19 infection: Stable
Patient was febrile for several days without an elevated white count. Initially this was thought to be a propofol reaction versus a bacterial infection however repeat COVID test on 03/28/2024 was positive. Patient was hypothermic at 96.6 �F,
tachycardic at 102 suggesting that COVID-19 was the causative factor.
Patient has completed Zosyn. Finished 1 dose of Decadron and 5 days of remdesivir
-Superficial venous thrombus: Monitoring
Swelling in left arm near peripheral line
Ultrasound confirmed left basilic vein thrombosis�line removed�will observe
-Hyponatremia: Resolved
Assess volume status and replete as needed
-Hyperbilirubinemia: Resolved
A possible component of hemolysis versus Gilbert's disease.
Continue to monitor
-Transaminitis likely secondary due to alcoholic fatty liver with possible compounding shock liver: Resolved
Patient had an elevated AST and ALT on admission with a ratio of 2:1
Has a history of alcohol use and obesity
-Lactic acidemia: Resolved
Was elevated immediately following his cardiac arrest. Has come back down.
-Asthma: Stable
Continue to monitor
-Bipolar disorder: Stable
Patient's mother states that he used to be on Lexapro but stopped on his own due to weight gain. Appreciate psychiatry consult. Psychiatry is under the impression that the patient's encephalopathy is due to a lot more than alcohol withdrawal.
Note that he had atrophy on his CAT scan well before he came to [facility] and notes numerous comorbidities including cardiac arrest which they believe are contributing to his cognitive decline. They recommended staying away from sedating
meds as much as possible. They also noted to be aware of IV Haldol usage as the patient had a prolonged QTc earlier in the admission.
-Obesity:
Patient's BMI was greater than 30 on admission and remains greater than 30 throughout this hospital stay
Diet - IDDSI-6
DVT Ppx - SCDs
GI Ppx - Lansoprazole 30 BID
Code Status - Full Code
Imaging:
Brain MRI on 04/11/2024: No MRI evidence for acute infarct. Bilateral mastoid effusions. Moderate age-related parenchymal atrophy. No masslike effect, midline shift, or extra-axial collection.
Anticipated Discharge: 24 - 48 hours
Subjective/Interval History
-
Date of Service: April 23, 2024
Met with patient at the bedside. Patient was calm and resting in bed sleeping. Patient was arousable and responded to questions but frequently drifted right back to sleep. Has no complaints at the present time.
Objective Data
-
Vital Signs:
Vital Signs
Temp Pulse Resp BP Pulse Ox
98.0 F 75 18 116/70 99
04/22/24 23:05 04/22/24 23:05 04/22/24 23:05 04/22/24 23:05 04/22/24 23:05
I&O
04/22/24 04/23/24 04/24/24
06:59 06:59 06:59
Intake Total 1300 / 1300 1000 / 1000
Output Total 1924 / 1924 675 / 675
Balance -625 / -625 325 / 325
Review of Systems
-
History Source: Patient
Constitutional: Reports No Symptoms
EENT: Reports No Symptoms Reported
Respiratory: Reports No Symptoms
Cardiac: Reports No Symptoms
Abdomen/GI: Reports No Symptoms
Breast: Reports No Symptoms
Genitourinary: Reports No Symptoms
Musculoskeletal: Reports No Symptoms
Skin: Reports No Symptoms
Neuro: Reports No Symptoms
Endocrine: Reports No Symptoms
Hematologic / Lymphatic: Reports No Symptoms
Physical Exam
-
General: Well Developed, Well Nourished, No Apparent Distress, Comfortable and Obese
HEENT: Normocephalic and Atraumatic
Respiratory: Clear to Auscultation
Cardiac: S1/S2; Negative Murmur, Rub or JVD
Breast: Deferred by me
GI: Soft, Nontender, Nondistended and Normal Bowel Sounds
Rectal: Deferred by Provider
Genito-urinary: Deferred by me
Musculoskeletal: No Clubbing, No Cyanosis and No Edema
Skin: Warm and Dry
Neuro: Awake, Alert and Oriented
Psych: Calm
[2024-04-23 07:53] VITALS: BP 89/74
--- NOTE | 2024-04-23 07:56 | W.PN.UPDATE ---
Update Note
Progress Note Update
I saw and evaluated the patient. I reviewed the resident�s note and agree with findings and plan as documented in the resident�s note.
Patient awake and alert. States he feels 'better' than yesterday.
Gen: NAD, AAOx3.
Eyes: EOMI, PERRLA, no scleral icterus.
Neck: supple.
CV: RRR, +S1/S2, no m/r/g.
Resp: CTAB, no rales, wheezes, or rhonchi.
Abd: +BS, soft, NT, ND
Skin: No rashes.
Neuro: CN 2-12 intact, non-focal.
Psych: slihgtly flat affect.
MRI brain: No MRI evidence for an acute infarct.
Sepsis due to acute influenza A infection:
-new Dx 04/18/24AM
-cont Tamiflu 75mg PO BID x 5 days
-BP stable and EF 30-35%, no IVFs at this moment
-Sepsis will cause acute metabolic encephalopathy especially in the setting of anoxic brain injury
Persistent encephalopathy:
-suspect combination of Wernicke's encephalopathy from long-term alcohol dependence/use plus anoxic injury from PEA arrest (anoxic brain injury)
-cont thiamine/folate
-maintain abstinence from ETOH
-MRI brain unremarkable as above
-time will tell if improvement will be had (very unlikely)
-ammonia normal
-cont seroquel/haldol PRN
-psych saw in c/s
-pt is candidate for [facility] at [place] but needs to be off restraints and 1:1 for at least 24 hours prior to d/c
-In my professional opinion the patient's encephalopathy will never improve
Persistent Afib:
-was on cardizem drip, now off
-cont Digoxin/Toprol XL/Eliquis
Acute on chronic HFrEF:
-Echo EF 30-35% with global hypokinesis w/ small pericardial effusion
-cont Farxiga/Entresto/Toprol XL (holding parameters adjusted to SBP<90)
-Lasix/Aldactone stopped with hypotension likely due to hypovolemia due to influenza A infection on 04/21/24. Received IVFs on on 04/21/24.
-start midodrine 2.5mg PO TID to augment BP to allow for GDMT
-cards saw in c/s
Dysphagia:
-IDDSI 6 diet
Essential Hypertension:
-cont Entresto/Toprol XL with holding parameters
Obesity due to excess calories
Resolved acute issues:
Anemia likely acute from blood loss (epistaxis/GI bleed) in combination from Eliquis, with iron deficiency component--s/p pRBC--HGB stable--cont protonix
Vtach Cardiac Arrest w/ CPR--TTM not initiated due to UGI bleed. Head CT showed atrophy and EEG showed diffuse cortical dysfunction without focal abnormality and no seizure activity- Extubated, off sedation
Sepsis, likely secondary to COVID-19 Infection- Febrile for several days without white count, initially thought propofol rxn vs. bacterial infection, however repeat covid test on 03/28/24 positive--s/p zosyn/decadron/Remdesivir
Alcohol Use Disorder w/possible withdrawal seizure- MSAS protocol. Thiamine and Folic acid, Ativan per protocol. Finished phenobarb taper.
Superficial Venous Thrombus - swelling in L arm near peripheral line, US confirmed L basilic vein thrombosis. Line removed--back on Eliquis
Upper GI Bleed w/ Epistaxis (resolved)- S/p 1u pRBCs. s/p TXA & cauterization for epistaxis. No signs of active bleeding on exam. Nasal packing removed. Will continue to monitor H&H. Transfuse if hgb <7.
Hyponatremia (resolved) - Off fluids. Assess volume status and replete as needed.
Hyperbilirubinemia (resolved) - possible component of hemolysis vs. Gilbert's Disease. Resolved now.
Transaminitis, likely alcoholic fatty liver, possible compounding shock liver (resolved) - Elevated AST/ALT on admission 2:1. history of alcohol use and obesity, possible chronic elevation from fatty liver vs. shock liver. AST/ALT normalized.
Lactic Acidosis (resolved) - was elevated immediately post cardiac arrest, has come back down. Blood gas showed metabolic acidosis without respiratory compensation; now normal pH.
Elevated troponins (resolved)- peaked, likely secondary to cardiac arrest.
Possible Aspiration Pneumonia, seen on admission (resolved as of 03/28/24)- Blood cx 03/27 NGTD x 48hrs, sputum cx showing usual yvette. COVID/Flu on admission negative. Completed IV Abx through 03/28.
Tracheitis-- Tracheal aspirate cx growing MSSA--no pna- finished Cefazolin course
Chronic stable conditions:
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 sleep apnea vs. worsening Asthma, however history uncertain
Bipolar Disorder--- patient's mother states he was on Lexapro but stopped on his own due to weight gain--cont seroquel and PRN haldol, dose reduced
FULL/Eliquis
Remains medically cleared for discharge. Case management aware.
[2024-04-23] MEDS: FEOSOL 325 MG PO (08:39)
[2024-04-23] MEDS: FARXIGA 10 MG PO (08:39)
[2024-04-23] MEDS: TAMIFLU 75 MG PO (08:39)
[2024-04-23] MEDS: PROTONIX 40 MG PO ×2 (08:39→20:10)
[2024-04-23] MEDS: FOLVITE 1 MG PO (08:39)
[2024-04-23] MEDS: ELIQUIS 5 MG PO ×2 (08:40→20:13)
[2024-04-23] MEDS: SEROQUEL 100 MG PO ×2 (08:40→20:13)
[2024-04-23] MEDS: VITAMIN B1 100 MG PO ×2 (08:40→20:11)
[2024-04-23] MEDS: TOPROL XL PO (08:40)
[2024-04-23] MEDS: ENTRESTO 24 MG/26 MG PO (08:40)
[2024-04-23] MEDS: DESENEX/MITRAZOL/ZEASORB 1 APPLIC TOPICAL ×2 (08:41→20:17)
[2024-04-23 08:47] LABS: Hematocrit 39.8 % (39.0-52.0); Hemoglobin 12.2 g/dL (13.0-18.0); Mean Corp Hgb Conc. 30.7 g/dL (33.0-37.0); Mean Corpuscular Hgb 26.3 pg (27.0-31.0); Mean Platelet Volume 10.6 fL (7.4-10.4); Platelet Count 225 10^3/uL (130-400); Red Blood Cell Count 4.63 10^6/uL (4.70-6.10); Red Cell Dist. Width 14.8 % (11.5-14.5); White Blood Cell Count 2.9 10^3/uL (4.8-10.8)
[2024-04-23 09:04] LABS: ALT (SGPT) 46 U/L (0-50); AST (SGOT) 41 U/L (17-59); Albumin 3.9 g/dl (3.5-5.0); Alkaline Phosphatase 123 U/L (38-126); Blood Urea Nitrogen 10 mg/dl (9-20); Calcium 9.2 mg/dl (8.4-10.2); Carbon Dioxide 26 mmol/L (22-30); Chloride 102 mmol/L (98-107); Estimated Creatinine Clearance > 125 ml/min; Glucose 97 mg/dl (70-99); Potassium 4.1 mmol/L (3.5-5.1); Sodium 137 mmol/L (135-145); Total Bilirubin 0.8 mg/dl (0.2-1.3); Total Protein 6.8 g/dl (6.3-8.2); eGFR > 60.00
--- NOTE | 2024-04-23 09:20 | CM ---
Addendum entered by Adrianna Palm 04/23/24 11:54:
TC from [facility] acute rehab- they will not be able to accept patient.
Patient sen bedside, resting in bed.
1:1 maintained.
Plan: rehab once bed available
Original Note:
Spoke with Yamilet from [facility], case has not been reviewed yet.
Per Alyson they can take patients on a 1:1 on a case by case basis and if staffing allows.
Alyson will call back if additional information is needed or if determination is made.
TC to [facility] acute rehab they have not reviewed the case yet. They will also accept 1:1 on a case by case basis and depending on staffing.
PLan: rehab once bed available.
[2024-04-23 11:41] VITALS: BP 102/69
[2024-04-23] MEDS: ProAmatine 2.5 MG PO ×2 (13:10→17:18)
[2024-04-23 17:18] VITALS: BP 96/69
[2024-04-23] MEDS: NSS (PRESERVATIVE FREE) 0.5 ML IV (17:45)
[2024-04-23] MEDS: ATIVAN 1 MG IV (17:45)
--- NOTE | 2024-04-23 17:52 | PTCARENOTE ---
Addendum entered by Susan Boland RN 04/23/24 18:43:
pt cooperative and redirectable at this time.
Addendum entered by Susan Boland RN 04/23/24 17:59:
pt thinking he is at a school and is stating he 'is going to murder everyone here'. all thumbtacs etc removed from patient room. pt remains on 1:1
Original Note:
pt erratic in the room. pushing through pct and other staff to get into hallway. redirectable. stating he needs blood fo his body and to eat. prn ativan given through R wrist. pct and nurse in the room at this time. contacted
[2024-04-23] MEDS: ENTRESTO 24 MG/26 MG 1 TAB PO (20:13)
[2024-04-23] MEDS: TOPROL XL 100 MG PO (20:14)
[2024-04-24 07:03] VITALS: BP 96/58
[2024-04-24 07:10] VITALS: BP 104/73
--- NOTE | 2024-04-24 07:11 | W.PN.UPDATE ---
Update Note
Progress Note Update
I saw and evaluated the patient. I reviewed the resident�s note and agree with findings and plan as documented in the resident�s note.
Patient awake and alert. No new complaints.
Gen: NAD, Awake and alert, NCAZT
Eyes: EOMI, PERRLA, no scleral icterus.
Neck: supple.
CV: remains RRR, +S1/S2, no m/r/g.
Resp: CTAB, no rales, wheezes, or rhonchi.
Abd: +BS, soft, NT, ND
Skin: No rashes.
Neuro: CN 2-12 intact, non-focal.
Psych: mildly flat affect.
MRI brain: No MRI evidence for an acute infarct.
Sepsis due to acute influenza A infection:
-new Dx 04/18/24AM
-completed 5 days Tamiflu
-Sepsis cased acute metabolic encephalopathy especially in the setting of anoxic brain injury
Persistent encephalopathy:
-suspect combination of Wernicke's encephalopathy from long-term alcohol dependence/use plus anoxic injury from PEA arrest (anoxic brain injury)
-cont thiamine/folate
-maintain abstinence from ETOH
-MRI brain unremarkable as above
-time will tell if improvement will be had (very unlikely)
-ammonia normal
-cont seroquel/haldol PRN
-psych saw in c/s
-pt is candidate for [facility] at [place] but needs to be off restraints and 1:1 for at least 24 hours prior to d/c
-In my professional opinion the patient's encephalopathy will never improve
Persistent Afib:
-was on cardizem drip, now off
-cont Digoxin/Toprol XL/Eliquis
Acute on chronic HFrEF:
-Echo EF 30-35% with global hypokinesis w/ small pericardial effusion
-cont Farxiga/Entresto/Toprol XL (holding parameters adjusted to SBP<90)
-Lasix/Aldactone stopped with hypotension likely due to hypovolemia due to influenza A infection on 04/21/24. Received IVFs on on 04/21/24.
-midodrine 2.5mg PO TID started 04/23/24 to augment BP to allow for GDMT
-restart Aldactone at 12.5mg daily
-cards saw in c/s
Dysphagia:
-IDDSI 6 diet
Essential Hypertension:
-cont Entresto/Toprol XL with holding parameters
Obesity due to excess calories
Resolved acute issues:
Anemia likely acute from blood loss (epistaxis/GI bleed) in combination from Eliquis, with iron deficiency component--s/p pRBC--HGB stable--cont protonix
Vtach Cardiac Arrest w/ CPR--TTM not initiated due to UGI bleed. Head CT showed atrophy and EEG showed diffuse cortical dysfunction without focal abnormality and no seizure activity- Extubated, off sedation
Sepsis, likely secondary to COVID-19 Infection- Febrile for several days without white count, initially thought propofol rxn vs. bacterial infection, however repeat covid test on 03/28/24 positive--s/p zosyn/decadron/Remdesivir
Alcohol Use Disorder w/possible withdrawal seizure- MSAS protocol. Thiamine and Folic acid, Ativan per protocol. Finished phenobarb taper.
Superficial Venous Thrombus - swelling in L arm near peripheral line, US confirmed L basilic vein thrombosis. Line removed--back on Eliquis
Upper GI Bleed w/ Epistaxis (resolved)- S/p 1u pRBCs. s/p TXA & cauterization for epistaxis. No signs of active bleeding on exam. Nasal packing removed. Will continue to monitor H&H. Transfuse if hgb <7.
Hyponatremia (resolved) - Off fluids. Assess volume status and replete as needed.
Hyperbilirubinemia (resolved) - possible component of hemolysis vs. Gilbert's Disease. Resolved now.
Transaminitis, likely alcoholic fatty liver, possible compounding shock liver (resolved) - Elevated AST/ALT on admission 2:1. history of alcohol use and obesity, possible chronic elevation from fatty liver vs. shock liver. AST/ALT normalized.
Lactic Acidosis (resolved) - was elevated immediately post cardiac arrest, has come back down. Blood gas showed metabolic acidosis without respiratory compensation; now normal pH.
Elevated troponins (resolved)- peaked, likely secondary to cardiac arrest.
Possible Aspiration Pneumonia, seen on admission (resolved as of 03/28/24)- Blood cx 03/27 NGTD x 48hrs, sputum cx showing usual yvette. COVID/Flu on admission negative. Completed IV Abx through 03/28.
Tracheitis-- Tracheal aspirate cx growing MSSA--no pna- finished Cefazolin course
Chronic stable conditions:
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 sleep apnea vs. worsening Asthma, however history uncertain
Bipolar Disorder--- patient's mother states he was on Lexapro but stopped on his own due to weight gain--cont seroquel and PRN haldol, dose reduced
FULL/Eliquis
Continues to remain medically cleared for discharge. Case management aware.
[2024-04-24 07:12] LABS: Hematocrit 37.1 % (39.0-52.0); Hemoglobin 11.5 g/dL (13.0-18.0); Mean Corpuscular Hgb 26.3 pg (27.0-31.0); Mean Corpuscular Volume 84.9 fL (80.0-94.0); Mean Platelet Volume 10.1 fL (7.4-10.4); Platelet Count 202 10^3/uL (130-400); Red Blood Cell Count 4.37 10^6/uL (4.70-6.10); Red Cell Dist. Width 14.9 % (11.5-14.5); White Blood Cell Count 3.1 10^3/uL (4.8-10.8)
[2024-04-24 07:43] LABS: ALT (SGPT) 41 U/L (0-50); AST (SGOT) 36 U/L (17-59); Albumin 4.2 g/dl (3.5-5.0); Alkaline Phosphatase 121 U/L (38-126); Blood Urea Nitrogen 6 mg/dl (9-20); Calcium 9.3 mg/dl (8.4-10.2); Carbon Dioxide 24 mmol/L (22-30); Chloride 102 mmol/L (98-107); Estimated Creatinine Clearance > 125 ml/min; Glucose 109 mg/dl (70-99); Potassium 4.3 mmol/L (3.5-5.1); Sodium 136 mmol/L (135-145); Total Bilirubin 0.9 mg/dl (0.2-1.3); Total Protein 6.7 g/dl (6.3-8.2); eGFR > 60.00
[2024-04-24] MEDS: ENTRESTO 24 MG/26 MG 1 TAB PO ×2 (08:32→20:47)
[2024-04-24] MEDS: FOLVITE 1 MG PO (08:33)
[2024-04-24] MEDS: FARXIGA 10 MG PO (08:33)
[2024-04-24] MEDS: PROTONIX 40 MG PO ×2 (08:33→20:47)
[2024-04-24] MEDS: ALDACTONE 12.5 MG PO (08:33)
[2024-04-24] MEDS: SEROQUEL 100 MG PO ×2 (08:33→20:48)
[2024-04-24] MEDS: ELIQUIS 5 MG PO ×2 (08:33→20:48)
[2024-04-24] MEDS: ProAmatine 2.5 MG PO ×3 (08:33→17:27)
[2024-04-24] MEDS: FEOSOL 325 MG PO (08:33)
[2024-04-24] MEDS: TOPROL XL 100 MG PO ×2 (08:33→20:48)
[2024-04-24 08:36] VITALS: BMI 31.5
[2024-04-24] MEDS: DESENEX/MITRAZOL/ZEASORB 1 APPLIC TOPICAL ×2 (08:40→20:55)
[2024-04-24 11:25] VITALS: BP 101/61
[2024-04-24] MEDS: TYLENOL 650 MG PO (14:18)
[2024-04-24 15:09] VITALS: BP 96/59
[2024-04-24 23:16] VITALS: BP 105/48
[2024-04-25 06:00] VITALS: BMI 30.3
[2024-04-25 07:00] VITALS: BP 101/58
[2024-04-25] MEDS: TYLENOL 650 MG PO (07:36)
[2024-04-25] MEDS: FARXIGA 10 MG PO (07:37)
[2024-04-25] MEDS: ENTRESTO 24 MG/26 MG 1 TAB PO ×2 (07:37→21:15)
[2024-04-25] MEDS: ALDACTONE 12.5 MG PO (07:37)
[2024-04-25] MEDS: TOPROL XL 100 MG PO ×2 (07:37→21:16)
[2024-04-25] MEDS: FOLVITE 1 MG PO (07:37)
[2024-04-25] MEDS: PROTONIX 40 MG PO ×2 (07:37→21:16)
[2024-04-25] MEDS: ProAmatine 2.5 MG PO (07:37)
[2024-04-25] MEDS: ELIQUIS 5 MG PO ×2 (07:37→21:15)
[2024-04-25] MEDS: FEOSOL 325 MG PO (07:38)
[2024-04-25] MEDS: SEROQUEL 100 MG PO ×2 (07:38→21:16)
[2024-04-25] MEDS: DESENEX/MITRAZOL/ZEASORB 1 APPLIC TOPICAL ×2 (07:44→21:16)
--- NOTE | 2024-04-25 08:13 | W.PN.HOSP.TC ---
Today's Communication/Plan
-
see bold
Assessment / Plan
Assessment / Plan
Gen: remains NAD, Awake and alert, NCAT
Eyes: EOMI, PERRLA, no scleral icterus.
Neck: supple.
CV: continues to remain RRR, +S1/S2, no m/r/g.
Resp: CTAB anteriorly, no rales, wheezes, or rhonchi.
Abd: +BS, soft, NT, ND
Skin: No rashes.
Neuro: CN 2-12 intact, non-focal.
Psych: mildly flat affect.
MRI brain: No MRI evidence for an acute infarct.
Sepsis due to acute influenza A infection:
-new Dx 04/18/24AM
-completed 5 days Tamiflu
-Sepsis cased acute metabolic encephalopathy especially in the setting of anoxic brain injury
Persistent encephalopathy:
-suspect combination of Wernicke's encephalopathy from long-term alcohol dependence/use plus anoxic injury from PEA arrest (anoxic brain injury)
-cont thiamine/folate
-maintain abstinence from ETOH
-MRI brain unremarkable as above
-time will tell if improvement will be had (very unlikely)
-ammonia normal
-cont seroquel/haldol PRN
-psych saw in c/s
-pt is candidate for [facility] at [place] but needs to be off restraints and 1:1 for at least 24 hours prior to d/c
-In my professional opinion the patient's encephalopathy will never improve
Persistent Afib:
-was on cardizem drip, now off
-cont Digoxin/Toprol XL/Eliquis
Acute on chronic HFrEF:
-Echo EF 30-35% with global hypokinesis w/ small pericardial effusion
-cont Farxiga/Entresto/Toprol XL (holding parameters adjusted to SBP<90)
-Lasix/Aldactone stopped with hypotension likely due to hypovolemia due to influenza A infection on 04/21/24. Received IVFs on on 04/21/24.
-midodrine 2.5mg PO TID started 04/23/24 to augment BP to allow for GDMT. Increase Midodrine to 5mg PO TID.
-cont Aldactone at 12.5mg daily
-likely will restart Lasix on 04/26/24
-cards saw in c/s
Dysphagia:
-IDDSI 6 diet
Essential Hypertension:
-cont Entresto/Toprol XL with holding parameters
Obesity due to excess calories
Resolved acute issues:
Anemia likely acute from blood loss (epistaxis/GI bleed) in combination from Eliquis, with iron deficiency component--s/p pRBC--HGB stable--cont protonix
Vtach Cardiac Arrest w/ CPR--TTM not initiated due to UGI bleed. Head CT showed atrophy and EEG showed diffuse cortical dysfunction without focal abnormality and no seizure activity- Extubated, off sedation
Sepsis, likely secondary to COVID-19 Infection- Febrile for several days without white count, initially thought propofol rxn vs. bacterial infection, however repeat covid test on 03/28/24 positive--s/p zosyn/decadron/Remdesivir
Alcohol Use Disorder w/possible withdrawal seizure- [facility] protocol. Thiamine and Folic acid, Ativan per protocol. Finished phenobarb taper.
Superficial Venous Thrombus - swelling in L arm near peripheral line, US confirmed L basilic vein thrombosis. Line removed--back on Eliquis
Upper GI Bleed w/ Epistaxis (resolved)- S/p 1u pRBCs. s/p TXA & cauterization for epistaxis. No signs of active bleeding on exam. Nasal packing removed. Will continue to monitor H&H. Transfuse if hgb <7.
Hyponatremia (resolved) - Off fluids. Assess volume status and replete as needed.
Hyperbilirubinemia (resolved) - possible component of hemolysis vs. Gilbert's Disease. Resolved now.
Transaminitis, likely alcoholic fatty liver, possible compounding shock liver (resolved) - Elevated AST/ALT on admission 2:1. history of alcohol use and obesity, possible chronic elevation from fatty liver vs. shock liver. AST/ALT normalized.
Lactic Acidosis (resolved) - was elevated immediately post cardiac arrest, has come back down. Blood gas showed metabolic acidosis without respiratory compensation; now normal pH.
Elevated troponins (resolved)- peaked, likely secondary to cardiac arrest.
Possible Aspiration Pneumonia, seen on admission (resolved as of 03/28/24)- Blood cx 03/27 NGTD x 48hrs, sputum cx showing usual yvette. COVID/Flu on admission negative. Completed IV Abx through 03/28.
Tracheitis-- Tracheal aspirate cx growing MSSA--no pna- finished Cefazolin course
Chronic stable conditions:
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 sleep apnea vs. worsening Asthma, however history uncertain
Bipolar Disorder--- patient's mother states he was on Lexapro but stopped on his own due to weight gain--cont seroquel and PRN haldol, dose reduced
FULL/Eliquis
Continues to remain medically cleared for discharge. Case management aware.
Anticipated Discharge: Today
Subjective/Interval History
-
Date of Service: April 25, 2024
No new complaints.
Objective Data
-
Vital Signs:
Vital Signs
Temp Pulse Resp BP Pulse Ox
97.9 F 81 18 101/58 97
04/25/24 07:00 04/25/24 07:00 04/25/24 07:00 04/25/24 07:00 04/25/24 07:00
I&O
04/24/24 04/25/24 04/26/24
06:59 06:59 06:59
Intake Total 1720 / 1720 1120 / 1120
Output Total 625 / 625
Balance 1095 / 1095 1120 / 1120
[2024-04-25 09:43] VITALS: BMI 31.4
[2024-04-25 11:00] VITALS: BP 105/57
[2024-04-25] MEDS: NSS (PRESERVATIVE FREE) 0.5 ML IV (11:09)
[2024-04-25] MEDS: ATIVAN 1 MG IV (11:10)
[2024-04-25] MEDS: ProAmatine 5 MG PO ×2 (13:46→18:35)
[2024-04-25 15:10] VITALS: BP 91/58
--- NOTE | 2024-04-25 18:44 | PTCARENOTE ---
Behavior Note: pt at start of this RNs shift was restless but pleasant and cooperative with care. Around 1100 pt became increasingly restless, which progressed to agitation when patient raising voice at PCT 1:1 about having to leave. Ativan given;
refer to MAR. Pt still restless and agitated at times until approx. 1200, when he fell asleep. At 1300 pts mother in to visit. At 1400 PCT notified this RN pt yelling at mother when she began to ask the pt questions; such as today's date and his
situation. From 1500 to 1800 pt restless but conversing with PCT 1:1.
PLan of care on going.
[2024-04-25 23:00] VITALS: BP 125/78
[2024-04-26] VITALS (8 sets, daily range): BP systolic 98–128; BP diastolic 60–75; BMI 31.5
--- NOTE | 2024-04-26 07:25 | W.PN.HOSP.TC ---
Addendum entered and electronically signed by Elis Tracy MD 04/26/24 14:50:
I saw and evaluated the patient independently. I reviewed the resident�s note and agree with findings and plan as documented by Dr. Cadena.
GENERAL: well developed, well nourished, male in no apparent distress
HEENT: NC/AT--no O2 requirements
HEART: regular rate and rhythm, +S1, +S2
LUNGS : clear to auscultation bilaterally
ABDOM: soft, nontender, nondistended, + bowel sounds
EXT: no cyanosis, clubbing, or edema
NEUROLOGIC: grossly intact
PSYCH: remains with altered mental status, impulsive
Persistent encephalopathy-- suspect combination of Wernicke's encephalopathy from long-term alcohol dependence/use plus anoxic injury from PEA arrest (brain injury)--cont thiamine/folate--maintain abstinence from ETOH--time will tell if improvement
will be had, although this is likely NEW BASELINE--ammonia level WNL--cont seroquel--MRI noted--apprec psych--apprec PM&R eval--was candidate for [facility] [place]--BUT still need 1:1 for behavior issues--asking psych to
re-evaluate
Persistent Afib-- Off cardizem drip. On Digoxin/Toprol--Eliquis restarted--apprec cards--no plans for procedures at this point
Acute on chronic HFrEF - Echo showing EF of 30-35% with global hypokinesis w/ small pericardial effusion--lasix
Dysphagia -diet per speech therapy
Hypertension, primary likely -cont lisinopril--pt with some hypotension as well--midodrine continued
influenza A positive with sepsis--resolved--finished Tamiflu
Resolved acute issues:
Anemia likely acute from blood loss (epistaxis/GI bleed) in combination from Eliquis, with iron deficiency component--s/p pRBC--HGB stable--cont protonix
Vtach Cardiac Arrest w/ CPR--TTM not initiated due to UGI bleed. Head CT showed atrophy and EEG showed diffuse cortical dysfunction without focal abnormality and no seizure activity- Extubated, off sedation
Sepsis, likely secondary to COVID-19 Infection- Febrile for several days without white count, initially thought propofol rxn vs. bacterial infection, however repeat covid test on 03/28/24 positive--s/p zosyn/decadron/Remdesivir
Alcohol Use Disorder w/possible withdrawal seizure- [facility] protocol. Thiamine and Folic acid, Ativan per protocol. Finished phenobarb taper.
Superficial Venous Thrombus - swelling in L arm near peripheral line, US confirmed L basilic vein thrombosis. Line removed--back on Eliquis
Upper GI Bleed w/ Epistaxis (resolved)- S/p 1u pRBCs. s/p TXA & cauterization for epistaxis. No signs of active bleeding on exam. Nasal packing removed. Will continue to monitor H&H. Transfuse if hgb <7.
Hyponatremia (resolved) - Off fluids. Assess volume status and replete as needed.
Hyperbilirubinemia (resolved) - possible component of hemolysis vs. Gilbert's Disease. Resolved now.
Transaminitis, likely alcoholic fatty liver, possible compounding shock liver (resolved) - Elevated AST/ALT on admission 2:1. history of alcohol use and obesity, possible chronic elevation from fatty liver vs. shock liver. AST/ALT normalized.
Lactic Acidosis (resolved) - was elevated immediately post cardiac arrest, has come back down. Blood gas showed metabolic acidosis without respiratory compensation; now normal pH.
Elevated troponins (resolved)- peaked, likely secondary to cardiac arrest.
Possible Aspiration Pneumonia, seen on admission (resolved as of 03/28/24)- Blood cx 03/27 NGTD x 48hrs, sputum cx showing usual yvette. COVID/Flu on admission negative. Completed IV Abx through 03/28.
Tracheitis-- Tracheal aspirate cx growing MSSA--no pna- finished Cefazolin course
Chronic stable conditions:
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 sleep apnea vs. worsening Asthma, however history uncertain
Bipolar Disorder--- patient's mother states he was on Lexapro but stopped on his own due to weight gain--cont seroquel and PRN haldol, dose reduced
DVT proph
CODE STATUS -- full code--was DNR on admission--revoked by pt Mother
Original Note:
Today's Communication/Plan
-
Patient remains medically stable for discharge. Continues to have placement issues. Case management continues to work to find placement for this patient.
Assessment / Plan
Assessment / Plan
Assessment/plan:
-Persistent altered mental status possibly due to Wernicke's encephalopathy secondary to long-term alcohol dependence: Improving
The patient has been getting thiamine and folate since his admission
Continue Ativan as per protocol
Continue Seroquel 100 mg p.o. twice daily
Patient is no longer sedated and is extubated
MRI conducted on 04/11/2024 showed moderate age-related parenchymal atrophy. No MRI evidence for an acute infarct. Bilateral mastoid effusions. No mass effect, midline shift or extra-axial collection no abnormal signal intensity on
diffusion-weighted images.
Status unchanged from 04/13/2024
Haldol dosage was reduced to 1 mg IV every 8 hours as needed after recommendations from psychiatry. The patient is much more clear after this medication adjustment.
The patient's current mental status appears to be the patient's new baseline
-Alcohol use disorder with possible withdrawal seizure - Monitoring
On 03/24/2024 the patient was seen with seizure-like activity before becoming unresponsive requiring ACLS
MSAS protocol
Continue thiamine and folic acid with Ativan as per protocol.
Phenobarbital taper completed.
Ammonia level less than 9
-Ambulatory Dysfunction:
Patient is much clearer on 04/14/2024 but remains unable to be steady on his feet.
PT OT evaluation recommends that the patient receive acute rehab upon discharge.
Appreciate PMNR evaluation -patient would be a candidate for [facility] at [place]. The patient would need to be off of restraints for and not on a one-to-one for at least 24 hours prior to discharge.
-Sepsis secondary to acute Influenza A Infection:
Nasal swab on 04/18/2024 positive for influenza A
White blood cells 4.0 on 04/19/2024
Blood pressure 99/64 on 04/19/2024
Pulse 101 on 04/18 at 19: 26
Temperature 101.2 on 04/18 at 19: 26
Elevated alkaline phosphatase at 140
Tamiflu 75 mg p.o. twice daily started for 5 days - Completed
-Hyperkalemia:
Potassium is 5.3 on 04/13/2024
The slight elevation may be due to lysis during blood draw -will recheck on next draw
Potassium 4.5 on 04/19/2024
-Persistent atrial fibrillation: Monitoring
Patient is on Toprol-XL 100 mg twice daily
Patient currently on digoxin 250 mcg -check digoxin levels on the day of discharge and again 1 month after discharge
Cardiology restarted benazepril on 04/12/2024
Cardiology recommends avoiding usage calcium channel blockers if possible given reduced left ventricular ejection fraction
Sacubitril/valsartan 24 mg / 26 mg twice daily started
Patient is still scheduled for PVI on May 2024
Heart rate is better controlled�stop digoxin -digoxin level ordered- WNL
Patient systolic blood pressure was in the 80s on 04/23/2024�midodrine 2.5 mg 3 times daily added -this has been increased to midodrine 5 mg p.o. 3 times daily on 12/23/2024
-Anemia, multifactorial with iron deficiency: Stable
On a PPI with lansoprazole
Persistently low hemoglobin around 9 despite no obvious signs of bleed
Iron, iron saturation, and ferritin were low on prior labs. Continue oral iron
-Essential hypertension:
Continue metoprolol succinate 100 mg p.o. twice daily
-Dysphagia: Stable
Cleared for IDDSI�6 diet by speech therapy
-Tracheitis: Stable
Tracheal aspirate culture sample grew MSSA
Finished cefazolin course
-Acute on chronic HFrEF: Stable
Prior echo shows ejection fraction of 30 to 35% with global hypokinesis and small pericardial effusion
Continue Farxiga/Entresto/Toprol-XL with holding parameters adjusted to systolic blood pressure < 90
Appreciate cardiology recommendations. They have set up an outpatient follow-up.
May resume Lasix after discontinuing spironolactone 12.5 mg p.o. daily
-V. tach cardiac arrest with CPR: Monitoring
Chest x-ray did not show any osseous abnormality
Weaned off pressure support
Head CT shows atrophy and EEG showed diffuse cortical dysfunction without focal abnormality and no seizure activity
Patient is extubated and off sedation
-Sepsis, secondary to COVID-19 infection: Stable
Patient was febrile for several days without an elevated white count. Initially this was thought to be a propofol reaction versus a bacterial infection however repeat COVID test on 03/28/2024 was positive. Patient was hypothermic at 96.6 �F,
tachycardic at 102 suggesting that COVID-19 was the causative factor.
Patient has completed Zosyn. Finished 1 dose of Decadron and 5 days of remdesivir
-Superficial venous thrombus: Monitoring
Swelling in left arm near peripheral line
Ultrasound confirmed left basilic vein thrombosis�line removed�will observe
-Hyponatremia: Resolved
Assess volume status and replete as needed
-Hyperbilirubinemia: Resolved
A possible component of hemolysis versus Gilbert's disease.
Continue to monitor
-Transaminitis likely secondary due to alcoholic fatty liver with possible compounding shock liver: Resolved
Patient had an elevated AST and ALT on admission with a ratio of 2:1
Has a history of alcohol use and obesity
-Lactic acidemia: Resolved
Was elevated immediately following his cardiac arrest. Has come back down.
-Asthma: Stable
Continue to monitor
-Bipolar disorder: Stable
Patient's mother states that he used to be on Lexapro but stopped on his own due to weight gain. Appreciate psychiatry consult. Psychiatry is under the impression that the patient's encephalopathy is due to a lot more than alcohol withdrawal.
Note that he had atrophy on his CAT scan well before he came to [facility] and notes numerous comorbidities including cardiac arrest which they believe are contributing to his cognitive decline. They recommended staying away from sedating
meds as much as possible. They also noted to be aware of IV Haldol usage as the patient had a prolonged QTc earlier in the admission.
-Obesity:
Patient's BMI was greater than 30 on admission and remains greater than 30 throughout this hospital stay
Diet - IDDSI-6
DVT Ppx - SCDs
GI Ppx - Lansoprazole 30 BID
Code Status - Full Code
Imaging:
Brain MRI on 04/11/2024: No MRI evidence for acute infarct. Bilateral mastoid effusions. Moderate age-related parenchymal atrophy. No masslike effect, midline shift, or extra-axial collection.
Anticipated Discharge: 24 - 48 hours
Subjective/Interval History
-
Date of Service: April 26, 2024
Met with patient at the bedside. He is pleasant in discussion and makes no complaints. He joked around about waiting for his food. Seen lying comfortably in bed.
Objective Data
-
Labs:
Labs
04/26/24 07:45
04/26/24 07:45
Vital Signs:
Vital Signs
Temp Pulse Resp BP Pulse Ox
98.4 F 85 22 125/78 96
04/25/24 23:00 04/25/24 23:00 04/25/24 15:10 04/25/24 23:00 04/25/24 23:54
I&O
04/25/24 04/26/24 04/27/24
06:59 06:59 06:59
Intake Total 1120 / 1120 1520 / 1520
Balance 1120 / 1120 1520 / 1520
Review of Systems
-
History Source: Patient
Constitutional: Reports No Symptoms
EENT: Reports No Symptoms Reported
Respiratory: Reports No Symptoms
Cardiac: Reports No Symptoms
Abdomen/GI: Reports No Symptoms
Breast: Reports No Symptoms
Genitourinary: Reports No Symptoms
Musculoskeletal: Reports No Symptoms
Skin: Reports No Symptoms
Neuro: Reports No Symptoms
Endocrine: Reports No Symptoms
Physical Exam
-
General: Well Developed and Well Nourished
HEENT: Normocephalic and Atraumatic
Respiratory: Clear to Auscultation
Cardiac: S1/S2; Negative Murmur, Rub or JVD
Breast: Deferred by me
GI: Soft, Nontender, Nondistended and Normal Bowel Sounds
Rectal: Deferred by Provider
Genito-urinary: Costovertebral Angle Tend and Deferred by me
Musculoskeletal: No Clubbing and No Cyanosis
Skin: Warm and Dry
Neuro: Awake
Psych: Calm
[2024-04-26 08:03] LABS: Hematocrit 38.8 % (39.0-52.0); Hemoglobin 12.1 g/dL (13.0-18.0); Mean Corp Hgb Conc. 31.2 g/dL (33.0-37.0); Mean Corpuscular Volume 83.4 fL (80.0-94.0); Mean Platelet Volume 10.6 fL (7.4-10.4); Platelet Count 214 10^3/uL (130-400); Red Blood Cell Count 4.65 10^6/uL (4.70-6.10); White Blood Cell Count 4.2 10^3/uL (4.8-10.8)
[2024-04-26] MEDS: FARXIGA 10 MG PO (08:12)
[2024-04-26] MEDS: FEOSOL 325 MG PO (08:12)
[2024-04-26] MEDS: ENTRESTO 24 MG/26 MG 1 TAB PO ×2 (08:12→21:20)
[2024-04-26] MEDS: ELIQUIS 5 MG PO ×2 (08:12→21:20)
[2024-04-26] MEDS: PROTONIX 40 MG PO ×2 (08:12→21:20)
[2024-04-26] MEDS: ALDACTONE 12.5 MG PO (08:13)
[2024-04-26] MEDS: SEROQUEL 100 MG PO ×2 (08:13→21:20)
[2024-04-26] MEDS: FOLVITE 1 MG PO (08:13)
[2024-04-26] MEDS: DESENEX/MITRAZOL/ZEASORB 1 APPLIC TOPICAL (08:13)
[2024-04-26] MEDS: TOPROL XL 100 MG PO ×2 (08:13→21:23)
[2024-04-26] MEDS: ProAmatine 5 MG PO ×3 (08:13→17:06)
[2024-04-26 08:33] LABS: ALT (SGPT) 43 U/L (0-50); AST (SGOT) 38 U/L (17-59); Albumin 4.1 g/dl (3.5-5.0); Alkaline Phosphatase 111 U/L (38-126); Blood Urea Nitrogen 4 mg/dl (9-20); Calcium 9.8 mg/dl (8.4-10.2); Carbon Dioxide 23 mmol/L (22-30); Chloride 104 mmol/L (98-107); Estimated Creatinine Clearance > 125 ml/min; Glucose 108 mg/dl (70-99); Potassium 4.5 mmol/L (3.5-5.1); Sodium 138 mmol/L (135-145); Total Bilirubin 0.8 mg/dl (0.2-1.3); eGFR > 60.00
--- NOTE | 2024-04-26 15:20 | CM ---
Patient seen at bedside, now with Flu per physicians. Patient not accepted by [facility] or [facility] without being off of 1:1. CM will also call to [facility] to see if they would be able to accept patient on 1:1. CM will continue to follow for discharge
planning needs.
Plan; Acute Rehab vs SNF
--- NOTE | 2024-04-26 18:30 | PTCARENOTE ---
pt cooperative and redirectable when impulsive during this nurses shift.
[2024-04-26] MEDS: DESENEX/MITRAZOL/ZEASORB TOPICAL (21:24)
[2024-04-26] MEDS: ATIVAN 1 MG IV (23:42)
[2024-04-27 06:40] LABS: Hematocrit 41.5 % (39.0-52.0); Hemoglobin 13.1 g/dL (13.0-18.0); Mean Corp Hgb Conc. 31.6 g/dL (33.0-37.0); Mean Corpuscular Hgb 26.2 pg (27.0-31.0); Mean Platelet Volume 10.3 fL (7.4-10.4); Platelet Count 211 10^3/uL (130-400); Red Cell Dist. Width 15.3 % (11.5-14.5); White Blood Cell Count 4.4 10^3/uL (4.8-10.8)
--- NOTE | 2024-04-27 06:42 | PTCARENOTE ---
04/26/24: 23:42 Patient agitated pacing in room banging on table, coming out into the hallway stating get me out of this place before I start breaking things, Patient back in his room, IV Ativan given to help patient relax. Patient slept all night no
furter issues after Ativan given.
[2024-04-27 07:10] VITALS: BP 100/50
--- NOTE | 2024-04-27 07:21 | W.PN.HOSP.TC ---
Addendum entered and electronically signed by Elis Tracy MD 04/27/24 17:02:
I saw and evaluated the patient independently. I reviewed the resident�s note and agree with findings and plan as documented by Dr. Cadena.
GENERAL: well developed, well nourished, male in no apparent distress
HEENT: NC/AT--no O2 requirements
HEART: regular rate and rhythm, +S1, +S2
LUNGS : clear to auscultation bilaterally
ABDOM: soft, nontender, nondistended, + bowel sounds
EXT: no cyanosis, clubbing, or edema
NEUROLOGIC: grossly intact
PSYCH: remains with altered mental status, impulsive
Persistent encephalopathy-- suspect combination of Wernicke's encephalopathy from long-term alcohol dependence/use plus anoxic injury from PEA arrest (very much acting like brain injury patient)--cont thiamine/folate--maintain abstinence from
ETOH--time will tell if improvement will be had, although this is likely NEW BASELINE--ammonia level WNL--cont seroquel--MRI noted--apprec psych--apprec PM&R eval--was candidate for [facility] at [place]--BUT still on 1:1 for
behavior issues--apprec psych
Persistent Afib-- Off cardizem drip. On Digoxin/Toprol--Eliquis restarted--apprec cards--no plans for procedures at this point
Acute on chronic HFrEF - Echo showing EF of 30-35% with global hypokinesis w/ small pericardial effusion--lasix
Dysphagia -diet per speech therapy
Hypertension, primary likely -cont lisinopril--pt with some hypotension as well--midodrine continued
influenza A positive with sepsis--resolved--finished Tamiflu
Resolved acute issues:
Anemia likely acute from blood loss (epistaxis/GI bleed) in combination from Eliquis, with iron deficiency component--s/p pRBC--HGB stable--cont protonix
Vtach Cardiac Arrest w/ CPR--TTM not initiated due to UGI bleed. Head CT showed atrophy and EEG showed diffuse cortical dysfunction without focal abnormality and no seizure activity- Extubated, off sedation
Sepsis, likely secondary to COVID-19 Infection- Febrile for several days without white count, initially thought propofol rxn vs. bacterial infection, however repeat covid test on 03/28/24 positive--s/p zosyn/decadron/Remdesivir
Alcohol Use Disorder w/possible withdrawal seizure- MSAS protocol. Thiamine and Folic acid, Ativan per protocol. Finished phenobarb taper.
Superficial Venous Thrombus - swelling in L arm near peripheral line, US confirmed L basilic vein thrombosis. Line removed--back on Eliquis
Upper GI Bleed w/ Epistaxis (resolved)- S/p 1u pRBCs. s/p TXA & cauterization for epistaxis. No signs of active bleeding on exam. Nasal packing removed. Will continue to monitor H&H. Transfuse if hgb <7.
Hyponatremia (resolved) - Off fluids. Assess volume status and replete as needed.
Hyperbilirubinemia (resolved) - possible component of hemolysis vs. Gilbert's Disease. Resolved now.
Transaminitis, likely alcoholic fatty liver, possible compounding shock liver (resolved) - Elevated AST/ALT on admission 2:1. history of alcohol use and obesity, possible chronic elevation from fatty liver vs. shock liver. AST/ALT normalized.
Lactic Acidosis (resolved) - was elevated immediately post cardiac arrest, has come back down. Blood gas showed metabolic acidosis without respiratory compensation; now normal pH.
Elevated troponins (resolved)- peaked, likely secondary to cardiac arrest.
Possible Aspiration Pneumonia, seen on admission (resolved as of 03/28/24)- Blood cx 03/27 NGTD x 48hrs, sputum cx showing usual yvette. COVID/Flu on admission negative. Completed IV Abx through 03/28.
Tracheitis-- Tracheal aspirate cx growing MSSA--no pna- finished Cefazolin course
Chronic stable conditions:
Asthma - was using his inhaler more frequently for night time shortness of breath [employer]. 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 sleep apnea vs. worsening Asthma, however history uncertain
Bipolar Disorder--- patient's mother states he was on Lexapro but stopped on his own due to weight gain--cont seroquel and PRN haldol, dose reduced
DVT proph
CODE STATUS -- full code--was DNR on admission--revoked by pt Mother
Original Note:
Today's Communication/Plan
-
Appreciate psychiatry recommendations. Added 0.5 mg of Ativan twice daily in addition to existing Seroquel for agitation.
Assessment / Plan
Assessment / Plan
Assessment/plan:
-Persistent altered mental status possibly due to Wernicke's encephalopathy secondary to long-term alcohol dependence: Improving
The patient has been getting thiamine and folate since his admission
Continue Ativan as per protocol
Continue Seroquel 100 mg p.o. twice daily
Patient is no longer sedated and is extubated
MRI conducted on 04/11/2024 showed moderate age-related parenchymal atrophy. No MRI evidence for an acute infarct. Bilateral mastoid effusions. No mass effect, midline shift or extra-axial collection no abnormal signal intensity on
diffusion-weighted images.
Status unchanged from 04/13/2024
Haldol dosage was reduced to 1 mg IV every 8 hours as needed after recommendations from psychiatry. The patient is much more clear after this medication adjustment.
The patient's current mental status appears to be the patient's new baseline
Ativan 0.5 mg twice daily added in addition to existing Seroquel dosage by psychiatry
-Alcohol use disorder with possible withdrawal seizure - Monitoring
On 03/24/2024 the patient was seen with seizure-like activity before becoming unresponsive requiring ACLS
MSAS protocol
Continue thiamine and folic acid with Ativan as per protocol.
Phenobarbital taper completed.
Ammonia level less than 9
-Ambulatory Dysfunction:
Patient is much clearer on 04/14/2024 but remains unable to be steady on his feet.
PT OT evaluation recommends that the patient receive acute rehab upon discharge.
Appreciate PMNR evaluation -patient would be a candidate for [facility] at [place]. The patient would need to be off of restraints for and not on a one-to-one for at least 24 hours prior to discharge.
-Sepsis secondary to acute Influenza A Infection:
Nasal swab on 04/18/2024 positive for influenza A
White blood cells 4.0 on 04/19/2024
Blood pressure 99/64 on 04/19/2024
Pulse 101 on 04/18 at 19: 26
Temperature 101.2 on 04/18 at 19: 26
Elevated alkaline phosphatase at 140
Tamiflu 75 mg p.o. twice daily started for 5 days - Completed
-Hyperkalemia:
Potassium is 5.3 on 04/13/2024
The slight elevation may be due to lysis during blood draw -will recheck on next draw
Potassium 4.5 on 04/19/2024
-Persistent atrial fibrillation: Monitoring
Patient is on Toprol-XL 100 mg twice daily
Patient currently on digoxin 250 mcg -check digoxin levels on the day of discharge and again 1 month after discharge
Cardiology restarted benazepril on 04/12/2024
Cardiology recommends avoiding usage calcium channel blockers if possible given reduced left ventricular ejection fraction
Sacubitril/valsartan 24 mg / 26 mg twice daily started
Patient is still scheduled for PVI on May 2024
Heart rate is better controlled�stop digoxin -digoxin level ordered- WNL
Patient systolic blood pressure was in the 80s on 04/23/2024�midodrine 2.5 mg 3 times daily added -this has been increased to midodrine 5 mg p.o. 3 times daily on 12/23/2024
-Anemia, multifactorial with iron deficiency: Stable
On a PPI with lansoprazole
Persistently low hemoglobin around 9 despite no obvious signs of bleed
Iron, iron saturation, and ferritin were low on prior labs. Continue oral iron
-Essential hypertension:
Continue metoprolol succinate 100 mg p.o. twice daily
-Dysphagia: Stable
Cleared for IDDSI�6 diet by speech therapy
-Tracheitis: Stable
Tracheal aspirate culture sample grew MSSA
Finished cefazolin course
-Acute on chronic HFrEF: Stable
Prior echo shows ejection fraction of 30 to 35% with global hypokinesis and small pericardial effusion
Continue Farxiga/Entresto/Toprol-XL with holding parameters adjusted to systolic blood pressure < 90
Appreciate cardiology recommendations. They have set up an outpatient follow-up.
May resume Lasix after discontinuing spironolactone 12.5 mg p.o. daily
-V. tach cardiac arrest with CPR: Monitoring
Chest x-ray did not show any osseous abnormality
Weaned off pressure support
Head CT shows atrophy and EEG showed diffuse cortical dysfunction without focal abnormality and no seizure activity
Patient is extubated and off sedation
-Sepsis, secondary to COVID-19 infection: Stable
Patient was febrile for several days without an elevated white count. Initially this was thought to be a propofol reaction versus a bacterial infection however repeat COVID test on 03/28/2024 was positive. Patient was hypothermic at 96.6 �F,
tachycardic at 102 suggesting that COVID-19 was the causative factor.
Patient has completed Zosyn. Finished 1 dose of Decadron and 5 days of remdesivir
-Superficial venous thrombus: Monitoring
Swelling in left arm near peripheral line
Ultrasound confirmed left basilic vein thrombosis�line removed�will observe
-Hyponatremia: Resolved
Assess volume status and replete as needed
-Hyperbilirubinemia: Resolved
A possible component of hemolysis versus Gilbert's disease.
Continue to monitor
-Transaminitis likely secondary due to alcoholic fatty liver with possible compounding shock liver: Resolved
Patient had an elevated AST and ALT on admission with a ratio of 2:1
Has a history of alcohol use and obesity
-Lactic acidemia: Resolved
Was elevated immediately following his cardiac arrest. Has come back down.
-Asthma: Stable
Continue to monitor
-Bipolar disorder: Stable
Patient's mother states that he used to be on Lexapro but stopped on his own due to weight gain. Appreciate psychiatry consult. Psychiatry is under the impression that the patient's encephalopathy is due to a lot more than alcohol withdrawal.
Note that he had atrophy on his CAT scan well before he came to [facility] and notes numerous comorbidities including cardiac arrest which they believe are contributing to his cognitive decline. They recommended staying away from sedating
meds as much as possible. They also noted to be aware of IV Haldol usage as the patient had a prolonged QTc earlier in the admission.
-Obesity:
Patient's BMI was greater than 30 on admission and remains greater than 30 throughout this hospital stay
Diet - IDDSI-6
DVT Ppx - SCDs
GI Ppx - Lansoprazole 30 BID
Code Status - Full Code
Imaging:
Brain MRI on 04/11/2024: No MRI evidence for acute infarct. Bilateral mastoid effusions. Moderate age-related parenchymal atrophy. No masslike effect, midline shift, or extra-axial collection.
Anticipated Discharge: > 48 hours
Subjective/Interval History
-
Date of Service: April 27, 2024
Met with patient at the bedside. He is calm and cooperative in discussion. States that he sometimes 'loses it' in frustration when I mentioned that he became agitated last night. Offers no complaints at the present time.
Objective Data
-
Labs:
Labs
04/27/24 06:01
04/27/24 06:01
Vital Signs:
Vital Signs
Temp Pulse Resp BP Pulse Ox
97.9 F 71 17 98/75 96
04/26/24 23:03 04/26/24 23:03 04/26/24 23:03 04/26/24 23:03 04/26/24 23:03
I&O
04/26/24 04/27/24 04/28/24
06:59 06:59 06:59
Intake Total 1520 / 1520 2880 / 2880
Balance 1520 / 1520 2880 / 2880
Review of Systems
-
History Source: Patient
Constitutional: Reports No Symptoms
EENT: Reports No Symptoms Reported
Respiratory: Reports No Symptoms
Cardiac: Reports No Symptoms
Abdomen/GI: Reports No Symptoms
Breast: Reports No Symptoms
Genitourinary: Reports No Symptoms
Musculoskeletal: Reports No Symptoms
Skin: Reports No Symptoms
Neuro: Reports No Symptoms
Endocrine: Reports No Symptoms
Hematologic / Lymphatic: Reports No Symptoms
Physical Exam
-
General: Well Developed, Well Nourished, No Apparent Distress, Comfortable and Obese
HEENT: Normocephalic, Atraumatic and Moist Mucous Membranes
Respiratory: Clear to Auscultation
Cardiac: S1/S2; Negative Murmur, Rub or JVD
Breast: Deferred by me
GI: Soft, Nontender, Nondistended and Normal Bowel Sounds
Rectal: Deferred by Provider
Genito-urinary: Deferred by me
Musculoskeletal: No Clubbing, No Cyanosis and No Edema
Skin: Warm and Dry
Neuro: Awake, Alert, Oriented and AO x 3
Psych: Calm
[2024-04-27 07:28] LABS: ALT (SGPT) 43 U/L (0-50); AST (SGOT) 42 U/L (17-59); Albumin 4.6 g/dl (3.5-5.0); Alkaline Phosphatase 106 U/L (38-126); Blood Urea Nitrogen 4 mg/dl (9-20); Calcium 9.6 mg/dl (8.4-10.2); Carbon Dioxide 22 mmol/L (22-30); Chloride 102 mmol/L (98-107); Estimated Creatinine Clearance > 125 ml/min; Glucose 96 mg/dl (70-99); Potassium 4.9 mmol/L (3.5-5.1); Sodium 138 mmol/L (135-145); Total Bilirubin 1.1 mg/dl (0.2-1.3); Total Protein 7.2 g/dl (6.3-8.2); eGFR > 60.00
[2024-04-27 07:41] VITALS: BP 100/50
[2024-04-27] MEDS: TOPROL XL 100 MG PO ×2 (08:19→20:09)
[2024-04-27] MEDS: PROTONIX 40 MG PO ×2 (08:19→20:09)
[2024-04-27] MEDS: ALDACTONE 12.5 MG PO (08:19)
[2024-04-27] MEDS: ELIQUIS 5 MG PO ×2 (08:19→20:09)
[2024-04-27] MEDS: FOLVITE 1 MG PO (08:19)
[2024-04-27] MEDS: SEROQUEL 100 MG PO ×2 (08:19→20:09)
[2024-04-27] MEDS: FEOSOL 325 MG PO (08:19)
[2024-04-27] MEDS: ENTRESTO 24 MG/26 MG 1 TAB PO ×2 (08:19→20:10)
[2024-04-27] MEDS: FARXIGA 10 MG PO (08:20)
[2024-04-27] MEDS: ProAmatine 5 MG PO ×3 (08:20→17:48)
[2024-04-27] MEDS: DESENEX/MITRAZOL/ZEASORB 1 APPLIC TOPICAL ×2 (08:20→20:14)
--- NOTE | 2024-04-27 11:25 | W.PN.UPDATE ---
Update Note
Progress Note Update
Pt seen, chart reviewed, discussed with nursing staff. Psychiatry asked to follow up with this pt due to restlessness agitation, on 1:1. Pt has persistent encephalopathic state, with impulsive behavior, pacing around, coming out of room. Nursing
staff reports pt has made some threatening statements at times, was agitated last pm and responded well to IV Ativan 1 mg, slept well last night. This morning, pt is alert, walking around room, eating gummy candy. Speech is somewhat impaired/hard
to fully understand. Pt ramblind, talking about working for [employer] Asked where we are, pt answered '[employer]', 'has 3 names to it.' Asked when he was admitted, pt stated 'May of last year.' Pt unable to give
meaningful answers, is awake but disoriented. He makes eye contact, denies feeling anxious or depressed. He shows no signs of psychosis or cody. Pt continues to be on Seroquel 100 mg BID, has not received prn Haldol since he was given 1 mg IV
on 04/16/24.
Imp: Persistent Encephalopathy, most likely due to anoxic brain injury from PEA cardiac arrest, possibly also related to Wernicke's enceph from alcohol use; with resulting behavior disturbance, intermittent restlessness/agitation
Rec: Will try routine dose of po Ativan 0.5 mg BID, in addition to existing Seroquel
Will follow
[2024-04-27] MEDS: ATIVAN 0.5 MG PO ×2 (12:34→17:48)
--- NOTE | 2024-04-27 12:42 | PTCARENOTE ---
pt working with speech this afternoon. pt redirectable but momentarily agitated this morning. pt redirected and continued to be cooperative and pleasant with this nurse. when working with speech, pt mother asked where all the thumbtacks went. mother
made aware that sharp objects were taken out of room on sunday 04/23. will readdress them being in room if pt continues to be cooperative and not a risk. mother stated she may go and buy some herself. we offered tape for communication paperwork at
this time. ativan PO added to medication regimen.
--- NOTE | 2024-04-27 13:16 | PTOTSP ---
Acute Care Evaluation
Pt currently presents with clinical signs of a moderate cognitive linguistic impairment as evidenced by his performance on the MOCA (total score = 16/30). Pt exhibited relative strengths in the areas of naming, attention, naming, and abstraction.
Pt's greatest areas of deficits included orientation, registration of information, short term memory/recall, and executive functioning. Pt would benefit from intensive cognitive linguistic tx over the next 6-12 months to maximize his rehabilitation
potential in the acute rehabilitation setting.
Recommendations:
- Continue with cognitive linguistic tx while admitted to the hospital targeting orientation, registration of information, memory, and executive functioning skills.
- Compensatory strategies for care providers: Use large visual signs to work on re-orientation of 3 parameters to begin with including LOCATION, MONTH, and YEAR. Review these several times a day and use cell phones, calenders, TV's, other materials,
etc. to help support/reinforce as 'evidence' if pt is skeptical.
- Pt would benefit from intensive [employer] therapy upon d/c at the acute rehab level of care.
[2024-04-27 15:40] VITALS: BP 121/64
--- NOTE | 2024-04-27 15:41 | CM ---
Patient seen at bedside with physicians. Patient resting with 1:1 at bedside. Psych following with patient. Facilities are declining patient due to 1:1. CM reviewed with psych, facility concerns. CM will continue to follow for discharge planning
needs.
Plan; Rehab pending acceptance and bed availability.
[2024-04-27] MEDS: ATIVAN 1 MG IV (23:36)
[2024-04-27] MEDS: NSS (PRESERVATIVE FREE) 0.5 ML IV (23:36)
[2024-04-28 07:02] VITALS: BP 100/64
--- NOTE | 2024-04-28 07:18 | W.PN.HOSP.TC ---
Addendum entered and electronically signed by Elis Tracy MD 04/28/24 14:09:
I saw and evaluated the patient independently. I reviewed the resident�s note and agree with findings and plan as documented by Dr. Cadena.
GENERAL: well developed, well nourished, male in no apparent distress
HEENT: NC/AT--no O2 requirements
HEART: regular rate and rhythm, +S1, +S2
LUNGS : clear to auscultation bilaterally
ABDOM: soft, nontender, nondistended, + bowel sounds
EXT: no cyanosis, clubbing, or edema
NEUROLOGIC: grossly intact
PSYCH: remains with altered mental status, impulsive
Persistent encephalopathy-- suspect combination of Wernicke's encephalopathy from long-term alcohol dependence/use plus anoxic injury from PEA arrest (very much acting like brain injury patient)--cont thiamine/folate--maintain abstinence from
ETOH--time will tell if improvement will be had, although this is likely NEW BASELINE--ammonia level WNL--cont seroquel--MRI noted--apprec psych--apprec PM&R eval--was candidate for [facility] at [place]--BUT still on 1:1 for
behavior issues--apprec psych
Persistent Afib-- Off cardizem drip. On Digoxin/Toprol--Eliquis restarted--apprec cards--no plans for procedures at this point
Acute on chronic HFrEF - Echo showing EF of 30-35% with global hypokinesis w/ small pericardial effusion--lasix
Dysphagia -diet per speech therapy
Hypertension, primary likely -cont lisinopril--pt with some hypotension as well--midodrine continued
Resolved acute issues:
Anemia likely acute from blood loss (epistaxis/GI bleed) in combination from Eliquis, with iron deficiency component--s/p pRBC--HGB stable--cont protonix
Vtach Cardiac Arrest w/ CPR--TTM not initiated due to UGI bleed. Head CT showed atrophy and EEG showed diffuse cortical dysfunction without focal abnormality and no seizure activity- Extubated, off sedation
Sepsis, likely secondary to COVID-19 Infection- Febrile for several days without white count, initially thought propofol rxn vs. bacterial infection, however repeat covid test on 03/28/24 positive--s/p zosyn/decadron/Remdesivir
Alcohol Use Disorder w/possible withdrawal seizure- MSAS protocol. Thiamine and Folic acid, Ativan per protocol. Finished phenobarb taper.
Superficial Venous Thrombus - swelling in L arm near peripheral line, US confirmed L basilic vein thrombosis. Line removed--back on Eliquis
Upper GI Bleed w/ Epistaxis (resolved)- S/p 1u pRBCs. s/p TXA & cauterization for epistaxis. No signs of active bleeding on exam. Nasal packing removed. Will continue to monitor H&H. Transfuse if hgb <7.
Hyponatremia (resolved) - Off fluids. Assess volume status and replete as needed.
Hyperbilirubinemia (resolved) - possible component of hemolysis vs. Gilbert's Disease. Resolved now.
Transaminitis, likely alcoholic fatty liver, possible compounding shock liver (resolved) - Elevated AST/ALT on admission 2:1. history of alcohol use and obesity, possible chronic elevation from fatty liver vs. shock liver. AST/ALT normalized.
Lactic Acidosis (resolved) - was elevated immediately post cardiac arrest, has come back down. Blood gas showed metabolic acidosis without respiratory compensation; now normal pH.
Elevated troponins (resolved)- peaked, likely secondary to cardiac arrest.
Possible Aspiration Pneumonia, seen on admission (resolved as of 03/28/24)- Blood cx 03/27 NGTD x 48hrs, sputum cx showing usual michelle. COVID/Flu on admission negative. Completed IV Abx through 03/28.
Tracheitis-- Tracheal aspirate cx growing MSSA--no pna- finished Cefazolin course
influenza A positive with sepsis--resolved--finished Tamiflu
Chronic stable conditions:
Asthma - was using his inhaler more frequently for night time shortness of breath [employer]. 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 sleep apnea vs. worsening Asthma, however history uncertain
Bipolar Disorder--- patient's mother states he was on Lexapro but stopped on his own due to weight gain--cont seroquel and ativan, dose reduced
DVT proph
CODE STATUS -- full code--was DNR on admission--revoked by pt Mother
Original Note:
Today's Communication/Plan
-
Patient remains medically stable, they continue to work to find placement in order for safe discharge for this patient.
Assessment / Plan
Assessment / Plan
Assessment/plan:
-Persistent altered mental status possibly due to Wernicke's encephalopathy secondary to long-term alcohol dependence: Improving
The patient has been getting thiamine and folate since his admission
Continue Ativan as per protocol
Continue Seroquel 100 mg p.o. twice daily
Patient is no longer sedated and is extubated
MRI conducted on 04/11/2024 showed moderate age-related parenchymal atrophy. No MRI evidence for an acute infarct. Bilateral mastoid effusions. No mass effect, midline shift or extra-axial collection no abnormal signal intensity on
diffusion-weighted images.
Status unchanged from 04/13/2024
Haldol dosage was reduced to 1 mg IV every 8 hours as needed after recommendations from psychiatry. The patient is much more clear after this medication adjustment.
The patient's current mental status appears to be the patient's new baseline
Ativan 0.5 mg twice daily added in addition to existing Seroquel dosage by psychiatry -still had burst on the evening of 04/27/2024ppreciate psychiatry recommendations
-Alcohol use disorder with possible withdrawal seizure - Monitoring
On 03/24/2024 the patient was seen with seizure-like activity before becoming unresponsive requiring ACLS
MSAS protocol
Continue thiamine and folic acid with Ativan as per protocol.
Phenobarbital taper completed.
Ammonia level less than 9
-Ambulatory Dysfunction:
Patient is much clearer on 04/14/2024 but remains unable to be steady on his feet.
PT OT evaluation recommends that the patient receive acute rehab upon discharge.
Appreciate PMNR evaluation -patient would be a candidate for [facility] at [place]. The patient would need to be off of restraints for and not on a one-to-one for at least 24 hours prior to discharge.
-Sepsis secondary to acute Influenza A Infection:
Nasal swab on 04/18/2024 positive for influenza A
White blood cells 4.0 on 04/19/2024
Blood pressure 99/64 on 04/19/2024
Pulse 101 on 04/18 at 19: 26
Temperature 101.2 on 04/18 at 19: 26
Elevated alkaline phosphatase at 140
Tamiflu 75 mg p.o. twice daily started for 5 days - Completed
-Hyperkalemia:
Potassium is 5.3 on 04/13/2024
The slight elevation may be due to lysis during blood draw -will recheck on next draw
Potassium 4.5 on 04/19/2024
-Persistent atrial fibrillation: Monitoring
Patient is on Toprol-XL 100 mg twice daily
Patient currently on digoxin 250 mcg -check digoxin levels on the day of discharge and again 1 month after discharge
Cardiology restarted benazepril on 04/12/2024
Cardiology recommends avoiding usage calcium channel blockers if possible given reduced left ventricular ejection fraction
Sacubitril/valsartan 24 mg / 26 mg twice daily started
Patient is still scheduled for PVI on May 2024
Heart rate is better controlled�stop digoxin -digoxin level ordered- WNL
Patient systolic blood pressure was in the 80s on 04/23/2024�midodrine 2.5 mg 3 times daily added -this has been increased to midodrine 5 mg p.o. 3 times daily on 12/23/2024
-Anemia, multifactorial with iron deficiency: Stable
On a PPI with lansoprazole
Persistently low hemoglobin around 9 despite no obvious signs of bleed
Iron, iron saturation, and ferritin were low on prior labs. Continue oral iron
-Essential hypertension:
Continue metoprolol succinate 100 mg p.o. twice daily
-Dysphagia: Stable
Cleared for IDDSI�6 diet by speech therapy
-Tracheitis: Stable
Tracheal aspirate culture sample grew MSSA
Finished cefazolin course
-Acute on chronic HFrEF: Stable
Prior echo shows ejection fraction of 30 to 35% with global hypokinesis and small pericardial effusion
Continue Farxiga/Entresto/Toprol-XL with holding parameters adjusted to systolic blood pressure < 90
Appreciate cardiology recommendations. They have set up an outpatient follow-up.
May resume Lasix after discontinuing spironolactone 12.5 mg p.o. daily
-V. tach cardiac arrest with CPR: Monitoring
Chest x-ray did not show any osseous abnormality
Weaned off pressure support
Head CT shows atrophy and EEG showed diffuse cortical dysfunction without focal abnormality and no seizure activity
Patient is extubated and off sedation
-Sepsis, secondary to COVID-19 infection: Stable
Patient was febrile for several days without an elevated white count. Initially this was thought to be a propofol reaction versus a bacterial infection however repeat COVID test on 03/28/2024 was positive. Patient was hypothermic at 96.6 �F,
tachycardic at 102 suggesting that COVID-19 was the causative factor.
Patient has completed Zosyn. Finished 1 dose of Decadron and 5 days of remdesivir
-Superficial venous thrombus: Monitoring
Swelling in left arm near peripheral line
Ultrasound confirmed left basilic vein thrombosis�line removed�will observe
-Hyponatremia: Resolved
Assess volume status and replete as needed
-Hyperbilirubinemia: Resolved
A possible component of hemolysis versus Gilbert's disease.
Continue to monitor
-Transaminitis likely secondary due to alcoholic fatty liver with possible compounding shock liver: Resolved
Patient had an elevated AST and ALT on admission with a ratio of 2:1
Has a history of alcohol use and obesity
-Lactic acidemia: Resolved
Was elevated immediately following his cardiac arrest. Has come back down.
-Asthma: Stable
Continue to monitor
-Bipolar disorder: Stable
Patient's mother states that he used to be on Lexapro but stopped on his own due to weight gain. Appreciate psychiatry consult. Psychiatry is under the impression that the patient's encephalopathy is due to a lot more than alcohol withdrawal.
Note that he had atrophy on his CAT scan well before he came to [facility] and notes numerous comorbidities including cardiac arrest which they believe are contributing to his cognitive decline. They recommended staying away from sedating
meds as much as possible. They also noted to be aware of IV Haldol usage as the patient had a prolonged QTc earlier in the admission.
-Obesity:
Patient's BMI was greater than 30 on admission and remains greater than 30 throughout this hospital stay
Diet - IDDSI-6
DVT Ppx - SCDs
GI Ppx - Lansoprazole 30 BID
Code Status - Full Code
Imaging:
Brain MRI on 04/11/2024: No MRI evidence for acute infarct. Bilateral mastoid effusions. Moderate age-related parenchymal atrophy. No masslike effect, midline shift, or extra-axial collection.
Anticipated Discharge: > 48 hours
Subjective/Interval History
-
Date of Service: April 28, 2024
Met with patient at the bedside. He is calm and resting in bed and reports no complaints. Patient had another outburst of agitation last night which required IV Ativan to ensure patient safety.
Objective Data
-
Labs:
Labs
04/28/24 07:26
04/28/24 07:26
04/18/24 14:16 Blood Culture - Final
Blood/Venous No Growth - Final Report
04/18/24 11:18 Blood Culture - Final
Blood/Venous No Growth - Final Report
04/18/24 08:58 Influenza Types A & B (TAYE) - Final
Nasal Swab Influenza A Positive, NAAT
04/01/24 11:04 Blood Culture - Final
Blood/Venous No Growth - Final Report
04/01/24 11:02 Respiratory Culture - Final
Tracheal Aspirate S aureus-Methicillin Sensitive
Gram Stain - Final
04/01/24 11:22 Influenza Types A & B (TAYE) - Final
Nasal Swab Negative for Influenza A & B, NAAT
Negative results must be combined with clinical observations
and patient history.
Nucleic Acid Amplification test (NAAT)performed on the
[employer] NOW platform.
03/27/24 09:01 Blood Culture - Final
Blood/Venous No Growth - Final Report
03/27/24 09:01 Blood Culture - Final
Blood/Venous No Growth - Final Report
03/27/24 17:30 Respiratory Culture - Final
Sputum Usual Respiratory Michelle
Gram Stain - Final
03/28/24 15:21 Influenza Types A & B (ATYE) - Final
Nasal Swab Negative for Influenza A & B, NAAT
Negative results must be combined with clinical observations
and patient history.
Nucleic Acid Amplification test (NAAT)performed on the
[employer] NOW platform.
03/25/24 13:46 Respiratory Culture - Final
Endotracheal Usual Respiratory Michelle
Gram Stain - Final
03/26/24 03:45 Legionella Urinary Antigen - Final
Urine Negative for Legionella pneumophila Serogroup 1 antigen.
A negative result does not rule out the possiblity of
Legionella infection due to other serogroups or species of
Legionella. Clinical correlation is recommended.
Streptococcus pneumoniae Antigen (M - Final
Negative for Streptococcus pneumoniae antigen.
A negative result does not exclude infection with
Streptococcus pneumoniae. Clinical correlation is
recommended.
03/24/24 17:54 Legionella Urinary Antigen - Final
Urine Negative for Legionella pneumophila Serogroup 1 antigen.
A negative result does not rule out the possiblity of
Legionella infection due to other serogroups or species of
Legionella. Clinical correlation is recommended.
Streptococcus pneumoniae Antigen (M - Final
Negative for Streptococcus pneumoniae antigen.
A negative result does not exclude infection with
Streptococcus pneumoniae. Clinical correlation is
recommended.
Vital Signs:
Vital Signs
Temp Pulse Resp BP Pulse Ox
98.5 F 62 16 100/64 98
04/28/24 07:02 04/28/24 07:02 04/28/24 07:02 04/28/24 07:02 04/28/24 07:02
I&O
04/27/24 04/28/24 04/29/24
06:59 06:59 06:59
Intake Total 2880 / 2880 1440 / 1440
Balance 2880 / 2880 1440 / 1440
Review of Systems
-
History Source: Patient
Constitutional: Reports No Symptoms
EENT: Reports No Symptoms Reported
Respiratory: Reports No Symptoms
Cardiac: Reports No Symptoms
Abdomen/GI: Reports No Symptoms
Breast: Reports No Symptoms
Genitourinary: Reports No Symptoms
Musculoskeletal: Reports No Symptoms
Skin: Reports No Symptoms
Neuro: Reports No Symptoms
Endocrine: Reports No Symptoms
Physical Exam
-
General: Well Developed, Well Nourished, No Apparent Distress and Obese
HEENT: Normocephalic, Atraumatic and Moist Mucous Membranes; Negative Deaf
Respiratory: Clear to Auscultation; Negative Wheezes, Rales, Rhonchi or Crackles
Cardiac: S1/S2; Negative Murmur, Rub or JVD
Breast: Deferred by me
GI: Soft, Nontender and Nondistended
Rectal: Deferred by Provider
Genito-urinary: Deferred by me
Musculoskeletal: No Clubbing, No Cyanosis and No Edema
Skin: Warm and Dry
Neuro: Awake, Alert, Oriented and AO x 3
Psych: Calm
[2024-04-28] MEDS: FARXIGA 10 MG PO (08:03)
[2024-04-28] MEDS: ProAmatine 5 MG PO ×3 (08:03→16:42)
[2024-04-28] MEDS: ENTRESTO 24 MG/26 MG 1 TAB PO (08:03)
[2024-04-28] MEDS: FEOSOL 325 MG PO (08:04)
[2024-04-28] MEDS: FOLVITE 1 MG PO (08:04)
[2024-04-28] MEDS: PROTONIX 40 MG PO ×2 (08:04→20:45)
[2024-04-28] MEDS: ELIQUIS 5 MG PO ×2 (08:04→20:45)
[2024-04-28] MEDS: TOPROL XL 100 MG PO (08:04)
[2024-04-28] MEDS: DESENEX/MITRAZOL/ZEASORB 1 APPLIC TOPICAL ×2 (08:04→20:44)
[2024-04-28] MEDS: ALDACTONE 12.5 MG PO (08:04)
[2024-04-28] MEDS: SEROQUEL 100 MG PO ×2 (08:04→20:45)
[2024-04-28] MEDS: ATIVAN 0.5 MG PO (08:06)
[2024-04-28 08:08] LABS: Hematocrit 38.9 % (39.0-52.0); Mean Corp Hgb Conc. 30.8 g/dL (33.0-37.0); Mean Corpuscular Hgb 25.8 pg (27.0-31.0); Mean Corpuscular Volume 83.5 fL (80.0-94.0); Mean Platelet Volume 11.1 fL (7.4-10.4); Platelet Count 230 10^3/uL (130-400); Red Blood Cell Count 4.66 10^6/uL (4.70-6.10); Red Cell Dist. Width 15.4 % (11.5-14.5); White Blood Cell Count 4.3 10^3/uL (4.8-10.8)
[2024-04-28 10:23] LABS: ALT (SGPT) 34 U/L (0-50); AST (SGOT) 34 U/L (17-59); Albumin 4.2 g/dl (3.5-5.0); Alkaline Phosphatase 104 U/L (38-126); Blood Urea Nitrogen 3 mg/dl (9-20); Calcium 9.4 mg/dl (8.4-10.2); Carbon Dioxide 17 mmol/L (22-30); Chloride 104 mmol/L (98-107); Estimated Creatinine Clearance > 125 ml/min; Glucose 138 mg/dl (70-99); Potassium 4.2 mmol/L (3.5-5.1); Sodium 137 mmol/L (135-145); Total Protein 6.6 g/dl (6.3-8.2); eGFR > 60.00
[2024-04-28 11:11] VITALS: BMI 31.6
--- NOTE | 2024-04-28 14:19 | W.PN.UPDATE ---
Addendum entered and electronically signed by Vanita Sarmiento MD 04/29/24 11:00:
please note the addendum below is in the wrong chart and i will be calling [facility] to delete it. the progress note update below the addendum does belong in this chart .
Addendum entered and electronically signed by Vanita Sarmiento MD 04/29/24 10:57:
spoke again to nursing who described patient extremely hyperactive banging herself against the wall repetitively flushing toilet and not responsive to any verbal intervention earlier today. this is juxtaposed against normal behaviors much of the
afternoon yesterday. this is the definition of delirium ...fluctuating levels of consciousness......but what is the cause. at this point having received haldol and ativan she is much calmer.
Original Note:
Update Note
Progress Note Update
patient seen chart reviewed. discussed with dr simons . mom present at beside. this patient is known to me from prior visits during this admit. he continues to be intermittently agitated and has had a one to one ongoing. the hope has been to get
him to a rehab for rx of brain injury likely sustained during cardiac arrest. the patient is not keen on any further treatment and was insisting to me that he is ready for dc when clearly he is not. he was quite irritable with the bulk of his
irritability being directed towards his mother who was trying to explain to him that he could not come home with her as he is not ready. at one point he started fiddling with the adhesive on his iv not understanding the risk this posed to the
integrity of the iv and it took some time to get him to cease and desist in this behavior. i would not say he can at this point come off the one to one although i realize it is preventing him from being placed although i suspect he is going to
refuse rehab in any case. he does say he feels gabapentin has been helpful. will start 300 mg tid and dc ativan dayanna order leaving the prn in place. i will read his [facility] chart later today and consider whether mood stabilizer could be helpful.
mom seemed to recall his being on lithium. leave seroquel order as is. will carmen
--- NOTE | 2024-04-28 15:03 | CM ---
Patient seen at bedside. Patient mother spoke with CM and is aware of concerns regarding psych changes and behaviors. Patient seen by psych and changes to medications were discussed per psych. CM requested [facility] to reassess patient for possible brain
injury rehab. CM will continue to follow for discharge planning needs.
Plan; rehab
[2024-04-28 16:11] VITALS: BP 99/66
[2024-04-28] MEDS: NEURONTIN 300 MG PO ×2 (16:42→20:45)
[2024-04-28 21:09] VITALS: BP 94/58
[2024-04-28 23:03] VITALS: BP 95/57
[2024-04-28] MEDS: TOPROL XL PO (23:07)
[2024-04-28] MEDS: ENTRESTO 24 MG/26 MG PO (23:07)
--- NOTE | 2024-04-28 23:08 | PTCARENOTE ---
Pt BP 94/58 manual around 2100. Pt with metoprolol and entresto ordered. Notified PROBATION AGENT. Told to recheck at 2300. BP 95/57. PROBATION AGENT told this RN to hold doses for tonight, doses held - see MAY. Denies any symptoms. Denies pain. Pt drowsy, asleep in bed.
1:1 in room. Reports no needs at this time. Call farley within reach.
[2024-04-29 05:51] VITALS: BMI 31.7
--- NOTE | 2024-04-29 07:30 | W.PN.HOSP.TC ---
Addendum entered and electronically signed by Elis Tracy MD 04/29/24 14:47:
I saw and evaluated the patient independently. I reviewed the resident�s note and agree with findings and plan as documented by Dr. Cadena.
GENERAL: well developed, well nourished, male in no apparent distress
HEENT: NC/AT--no O2 requirements
HEART: regular rate and rhythm, +S1, +S2
LUNGS : clear to auscultation bilaterally
ABDOM: soft, nontender, nondistended, + bowel sounds
EXT: no cyanosis, clubbing, or edema
NEUROLOGIC: grossly intact
PSYCH: remains with altered mental status, impulsive
Persistent encephalopathy (very much acting like brain injury patient)-- suspect combination of Wernicke's encephalopathy from long-term alcohol dependence/use plus anoxic injury from PEA arrest --cont thiamine/folate--maintain abstinence from
ETOH--time will tell if improvement will be had, although this is likely NEW BASELINE--cont seroquel--MRI noted--apprec PM&R gina--was candidate for [facility] [place]--BUT still on 1:1 for behavior issues--apprec psych--starting
lithium--stop LUCIA/ARB due to interaction
Persistent Afib-- Off cardizem drip. On Digoxin/Toprol--Eliquis restarted--apprec cards--no plans for procedures at this point
Acute on chronic HFrEF - Echo showing EF of 30-35% with global hypokinesis w/ small pericardial effusion--lasix
Dysphagia -diet per speech therapy
Hypertension, primary likely--pt with some hypotension as well--midodrine continued
Resolved acute issues:
Anemia likely acute from blood loss (epistaxis/GI bleed) in combination from Eliquis, with iron deficiency component--s/p pRBC--HGB stable--cont protonix
Vtach Cardiac Arrest w/ CPR--TTM not initiated due to UGI bleed. Head CT showed atrophy and EEG showed diffuse cortical dysfunction without focal abnormality and no seizure activity- Extubated, off sedation
Sepsis, likely secondary to COVID-19 Infection- Febrile for several days without white count, initially thought propofol rxn vs. bacterial infection, however repeat covid test on 03/28/24 positive--s/p zosyn/decadron/Remdesivir
Alcohol Use Disorder w/possible withdrawal seizure- MSAS protocol. Thiamine and Folic acid, Ativan per protocol. Finished phenobarb taper.
Superficial Venous Thrombus - swelling in L arm near peripheral line, US confirmed L basilic vein thrombosis. Line removed--back on Eliquis
Upper GI Bleed w/ Epistaxis (resolved)- S/p 1u pRBCs. s/p TXA & cauterization for epistaxis. No signs of active bleeding on exam. Nasal packing removed. Will continue to monitor H&H. Transfuse if hgb <7.
Hyponatremia (resolved) - Off fluids. Assess volume status and replete as needed.
Hyperbilirubinemia (resolved) - possible component of hemolysis vs. Gilbert's Disease. Resolved now.
Transaminitis, likely alcoholic fatty liver, possible compounding shock liver (resolved) - Elevated AST/ALT on admission 2:1. history of alcohol use and obesity, possible chronic elevation from fatty liver vs. shock liver. AST/ALT normalized.
Lactic Acidosis (resolved) - was elevated immediately post cardiac arrest, has come back down. Blood gas showed metabolic acidosis without respiratory compensation; now normal pH.
Elevated troponins (resolved)- peaked, likely secondary to cardiac arrest.
Possible Aspiration Pneumonia, seen on admission (resolved as of 03/28/24)- Blood cx 03/27 NGTD x 48hrs, sputum cx showing usual yvette. COVID/Flu on admission negative. Completed IV Abx through 03/28.
Tracheitis-- Tracheal aspirate cx growing MSSA--no pna- finished Cefazolin course
influenza A positive with sepsis--resolved--finished Tamiflu
Chronic stable conditions:
Asthma - was using his inhaler more frequently for night time shortness of breath [employer]. 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 sleep apnea vs. worsening Asthma, however history uncertain
Bipolar Disorder--- patient's mother states he was on Lexapro but stopped on his own due to weight gain--cont seroquel and ativan, dose reduced
DVT proph
CODE STATUS -- full code--was DNR on admission--revoked by pt Mother
Original Note:
Today's Communication/Plan
-
Patient's as needed Ativan has been discontinued and replaced with lithium carbonate 300 mg p.o. twice daily for mood stabilization. We will follow lithium levels.
Assessment / Plan
Assessment / Plan
Assessment/plan:
-Persistent altered mental status possibly due to Wernicke's encephalopathy secondary to long-term alcohol dependence: Improving
The patient has been getting thiamine and folate since his admission
Continue Ativan as per protocol
Continue Seroquel 100 mg p.o. twice daily
Patient is no longer sedated and is extubated
MRI conducted on 04/11/2024 showed moderate age-related parenchymal atrophy. No MRI evidence for an acute infarct. Bilateral mastoid effusions. No mass effect, midline shift or extra-axial collection no abnormal signal intensity on
diffusion-weighted images.
Status unchanged from 04/13/2024
Haldol dosage was reduced to 1 mg IV every 8 hours as needed after recommendations from psychiatry. The patient is much more clear after this medication adjustment.
The patient's current mental status appears to be the patient's new baseline
Appreciate psychiatry recommendations- [place] carbonate 300 mg p.o. twice daily started for improved mood stabilization�we will follow lithium levels
-Alcohol use disorder with possible withdrawal seizure - Monitoring
On 03/24/2024 the patient was seen with seizure-like activity before becoming unresponsive requiring ACLS
MSAS protocol
Continue thiamine and folic acid with Ativan as per protocol.
Phenobarbital taper completed.
Ammonia level less than 9
-Ambulatory Dysfunction:
Patient is much clearer on 04/14/2024 but remains unable to be steady on his feet.
PT OT evaluation recommends that the patient receive acute rehab upon discharge.
Appreciate PMNR evaluation -patient would be a candidate for [facility] at [place]. The patient would need to be off of restraints for and not on a one-to-one for at least 24 hours prior to discharge.
-Sepsis secondary to acute Influenza A Infection:
Nasal swab on 04/18/2024 positive for influenza A
White blood cells 4.0 on 04/19/2024
Blood pressure 99/64 on 04/19/2024
Pulse 101 on 04/18 at 19: 26
Temperature 101.2 on 04/18 at 19: 26
Elevated alkaline phosphatase at 140
Tamiflu 75 mg p.o. twice daily started for 5 days - Completed
-Hyperkalemia:
Potassium is 5.3 on 04/13/2024
The slight elevation may be due to lysis during blood draw -will recheck on next draw
Potassium 4.5 on 04/19/2024
-Persistent atrial fibrillation: Monitoring
Patient is on Toprol-XL 100 mg twice daily
Patient currently on digoxin 250 mcg -check digoxin levels on the day of discharge and again 1 month after discharge
Cardiology restarted benazepril on 04/12/2024
Cardiology recommends avoiding usage calcium channel blockers if possible given reduced left ventricular ejection fraction
Sacubitril/valsartan 24 mg / 26 mg twice daily started
Patient is still scheduled for PVI on May 2024
Heart rate is better controlled�stop digoxin -digoxin level ordered- WNL
Patient systolic blood pressure was in the 80s on 04/23/2024�midodrine 2.5 mg 3 times daily added -this has been increased to midodrine 5 mg p.o. 3 times daily on 12/23/2024
-Anemia, multifactorial with iron deficiency: Stable
On a PPI with lansoprazole
Persistently low hemoglobin around 9 despite no obvious signs of bleed
Iron, iron saturation, and ferritin were low on prior labs. Continue oral iron
-Essential hypertension:
Continue metoprolol succinate 100 mg p.o. twice daily
-Dysphagia: Stable
Cleared for IDDSI�6 diet by speech therapy
-Tracheitis: Stable
Tracheal aspirate culture sample grew MSSA
Finished cefazolin course
-Acute on chronic HFrEF: Stable
Prior echo shows ejection fraction of 30 to 35% with global hypokinesis and small pericardial effusion
Continue Farxiga/Entresto/Toprol-XL with holding parameters adjusted to systolic blood pressure < 90
Appreciate cardiology recommendations. They have set up an outpatient follow-up.
May resume Lasix after discontinuing spironolactone 12.5 mg p.o. daily
-V. tach cardiac arrest with CPR: Monitoring
Chest x-ray did not show any osseous abnormality
Weaned off pressure support
Head CT shows atrophy and EEG showed diffuse cortical dysfunction without focal abnormality and no seizure activity
Patient is extubated and off sedation
-Sepsis, secondary to COVID-19 infection: Stable
Patient was febrile for several days without an elevated white count. Initially this was thought to be a propofol reaction versus a bacterial infection however repeat COVID test on 03/28/2024 was positive. Patient was hypothermic at 96.6 �F,
tachycardic at 102 suggesting that COVID-19 was the causative factor.
Patient has completed Zosyn. Finished 1 dose of Decadron and 5 days of remdesivir
-Superficial venous thrombus: Monitoring
Swelling in left arm near peripheral line
Ultrasound confirmed left basilic vein thrombosis�line removed�will observe
-Hyponatremia: Resolved
Assess volume status and replete as needed
-Hyperbilirubinemia: Resolved
A possible component of hemolysis versus Gilbert's disease.
Continue to monitor
-Transaminitis likely secondary due to alcoholic fatty liver with possible compounding shock liver: Resolved
Patient had an elevated AST and ALT on admission with a ratio of 2:1
Has a history of alcohol use and obesity
-Lactic acidemia: Resolved
Was elevated immediately following his cardiac arrest. Has come back down.
-Asthma: Stable
Continue to monitor
-Bipolar disorder: Stable
Patient's mother states that he used to be on Lexapro but stopped on his own due to weight gain. Appreciate psychiatry consult. Psychiatry is under the impression that the patient's encephalopathy is due to a lot more than alcohol withdrawal.
Note that he had atrophy on his CAT scan well before he came to [facility] and notes numerous comorbidities including cardiac arrest which they believe are contributing to his cognitive decline. They recommended staying away from sedating
meds as much as possible. They also noted to be aware of IV Haldol usage as the patient had a prolonged QTc earlier in the admission.
-Obesity:
Patient's BMI was greater than 30 on admission and remains greater than 30 throughout this hospital stay
Diet - IDDSI-6
DVT Ppx - SCDs
GI Ppx - Lansoprazole 30 BID
Code Status - Full Code
Imaging:
Brain MRI on 04/11/2024: No MRI evidence for acute infarct. Bilateral mastoid effusions. Moderate age-related parenchymal atrophy. No masslike effect, midline shift, or extra-axial collection.
Anticipated Discharge: > 48 hours
Subjective/Interval History
-
Date of Service: April 29, 2024
Met with patient at the bedside. He is calm and pleasant in discussion and offers no complaints at the present time. He did not recollect any emotional outbursts last night even though nursing staff reports that he was agitated.
Objective Data
-
Labs:
Labs
04/28/24 07:26
04/28/24 07:26
Vital Signs:
Vital Signs
Temp Pulse Resp BP Pulse Ox
97.6 F 91 16 106/71 98
04/29/24 07:41 04/29/24 07:41 04/29/24 07:41 04/29/24 07:41 04/29/24 07:41
I&O
04/28/24 04/29/24 04/30/24
06:59 06:59 06:59
Intake Total 1440 / 1440 2140 / 2140
Output Total
Balance 1440 / 1440 2137
Review of Systems
-
History Source: Patient
Constitutional: Reports No Symptoms
EENT: Reports No Symptoms Reported
Respiratory: Reports No Symptoms
Cardiac: Reports No Symptoms
Abdomen/GI: Reports No Symptoms
Breast: Reports No Symptoms
Genitourinary: Reports No Symptoms
Musculoskeletal: Reports No Symptoms
Skin: Reports No Symptoms
Neuro: Reports No Symptoms
Endocrine: Reports No Symptoms
Allergy / Immunology: Reports No Symptoms
Physical Exam
-
General: Well Developed, Well Nourished, No Apparent Distress and Comfortable
HEENT: Normocephalic, Atraumatic and Moist Mucous Membranes
Respiratory: Clear to Auscultation; Negative Wheezes, Rales, Rhonchi or Crackles
Cardiac: S1/S2; Negative Murmur or Rub
Breast: Deferred by me
GI: Soft, Nontender, Nondistended and Normal Bowel Sounds
Rectal: Deferred by Provider
Genito-urinary: Deferred by me
Musculoskeletal: No Clubbing, No Cyanosis and No Edema
Skin: Warm and Dry; Negative Rash
Neuro: Awake, Alert, Oriented and AO x 3
Psych: Calm
[2024-04-29] MEDS: FARXIGA 10 MG PO (07:35)
[2024-04-29] MEDS: NEURONTIN 300 MG PO ×3 (07:35→21:07)
[2024-04-29] MEDS: ProAmatine 5 MG PO ×3 (07:35→17:06)
[2024-04-29] MEDS: ENTRESTO 24 MG/26 MG 1 TAB PO (07:36)
[2024-04-29] MEDS: PROTONIX 40 MG PO ×2 (07:37→19:38)
[2024-04-29] MEDS: FEOSOL 325 MG PO (07:37)
[2024-04-29] MEDS: SEROQUEL 100 MG PO ×2 (07:37→19:38)
[2024-04-29] MEDS: DESENEX/MITRAZOL/ZEASORB 1 APPLIC TOPICAL ×2 (07:37→19:37)
[2024-04-29] MEDS: ELIQUIS 5 MG PO ×2 (07:37→19:38)
[2024-04-29] MEDS: ALDACTONE 12.5 MG PO (07:37)
[2024-04-29] MEDS: TOPROL XL 100 MG PO ×2 (07:37→19:38)
[2024-04-29] MEDS: FOLVITE 1 MG PO (07:37)
[2024-04-29 07:41] VITALS: BP 106/71
--- NOTE | 2024-04-29 11:04 | W.PN.UPDATE ---
Update Note
Progress Note Update
patient seen chart reviewed. spoke with nursing. the patient was better today in terms of being able for the most part to attend to the conversation and by and large respond appropriately but there were also more than occasional lapses in his
attention and focus where he would say something completely unrelated and i was unable to follow his line of thought. what was positive was that he was very calm and able to talk to me without getting angry or upset although as stated there were
moments when he seemed confused still. i did review his [facility] record. he was not seen there since 2019. he was at that time taking lithium gabapentin and wellbutrin. given the lability i saw yesterday lithium may not be a bad choice and he is
agreeable to taking it. he had been taking 300 mg bid which i will restart following blood level and aiming for o.5 to o.7. he wants to read some literature on [facility] which i will ask cm to give to him.
--- NOTE | 2024-04-29 11:28 | PTCARENOTE ---
Patient calm and cooperative. Watching TV in bed. Call farley within reach.
--- NOTE | 2024-04-29 12:25 | W.PN.UPDATE ---
Update Note
Progress Note Update
the following is the progress note that was entered yesterday for apr 28 but was or will be removed from the chart as i added an addendum that belonged in another chart tony brown entire note needed to be removed.
Patient seen chart reviewed discussed w dr simons. mom present at bedside. the patient is known to me from prior visits during this admit. he continues to be intermittently agitated and has had a one to one ongoing. the hope has been to get him
to a rehab for rx of brain injury likely sustained during a cardiac arrest. the patient is not keen on any further treatment and was insisting to me that he is ready for dc when clearly he is not. he was quite irritable with the bulk of his
irritability being directed towards his mother who was trying to explain to him that he could not come home with her as he is not ready . at one point he started fiddling with the adhesive on his iv not understanding the risk this posed to the
integrity of the iv and it took some time to get him to c ease . i would not say he can come off one to one at this point although it is preventing him from being placed. he does say he feels gabapentin helped in the past with irritability. will
start 300 tid and dc ativan dayanna order leaving the prn. will read his [facility] chart later today and consider whether a mood stabilizer could help. mom said he was on lithium in the past.
[2024-04-29 16:06] VITALS: BP 111/64
--- NOTE | 2024-04-29 16:25 | CM ---
Patient seen at bedside with physician. Psych continues to follow, discussion about options and psych to change medications. CM will continue to follow for discharge planning needs.
Plan; [facility] vs SNF
[2024-04-29 19:37] LABS: Hematocrit 36.7 % (39.0-52.0); Hemoglobin 11.6 g/dL (13.0-18.0); Mean Corp Hgb Conc. 31.6 g/dL (33.0-37.0); Mean Corpuscular Hgb 26.7 pg (27.0-31.0); Mean Corpuscular Volume 84.6 fL (80.0-94.0); Mean Platelet Volume 10.1 fL (7.4-10.4); Platelet Count 241 10^3/uL (130-400); Red Blood Cell Count 4.34 10^6/uL (4.70-6.10); Red Cell Dist. Width 15.3 % (11.5-14.5); White Blood Cell Count 5.8 10^3/uL (4.8-10.8)
[2024-04-29] MEDS: LITHOBID (EXTENDED RELEASE) 300 MG PO (19:38)
[2024-04-29 19:54] LABS: ALT (SGPT) 31 U/L (0-50); AST (SGOT) 29 U/L (17-59); Albumin 4.2 g/dl (3.5-5.0); Alkaline Phosphatase 109 U/L (38-126); Blood Urea Nitrogen 6 mg/dl (9-20); Calcium 9.5 mg/dl (8.4-10.2); Carbon Dioxide 28 mmol/L (22-30); Chloride 101 mmol/L (98-107); Estimated Creatinine Clearance > 125 ml/min; Glucose 117 mg/dl (70-99); Potassium 4.3 mmol/L (3.5-5.1); Sodium 136 mmol/L (135-145); Total Bilirubin 0.8 mg/dl (0.2-1.3); Total Protein 6.6 g/dl (6.3-8.2); eGFR > 60.00
[2024-04-29 23:30] VITALS: BP 99/53
--- NOTE | 2024-04-30 05:30 | PTCARENOTE ---
Pt calm, cooperative, and pleasant throughout shift. Slept for majority of the night. No complaints at this time. Call farley within reach.
[2024-04-30 06:00] VITALS: BMI 32.2
[2024-04-30 07:10] VITALS: BP 103/66
[2024-04-30] MEDS: SEROQUEL 100 MG PO ×2 (08:07→20:59)
[2024-04-30] MEDS: TYLENOL 650 MG PO ×2 (08:07→16:09)
[2024-04-30] MEDS: PROTONIX 40 MG PO ×2 (08:07→20:58)
[2024-04-30] MEDS: ALDACTONE 12.5 MG PO (08:07)
[2024-04-30] MEDS: ProAmatine 5 MG PO ×3 (08:07→18:18)
[2024-04-30] MEDS: LITHOBID (EXTENDED RELEASE) 300 MG PO ×2 (08:07→20:59)
[2024-04-30] MEDS: TOPROL XL 100 MG PO ×2 (08:07→20:58)
[2024-04-30] MEDS: NEURONTIN 300 MG PO ×3 (08:07→20:59)
[2024-04-30] MEDS: ELIQUIS 5 MG PO ×2 (08:07→20:59)
[2024-04-30] MEDS: DESENEX/MITRAZOL/ZEASORB 1 APPLIC TOPICAL (08:08)
[2024-04-30] MEDS: FARXIGA 10 MG PO (08:08)
[2024-04-30] MEDS: FEOSOL 325 MG PO (08:08)
[2024-04-30] MEDS: FOLVITE 1 MG PO (08:08)
--- NOTE | 2024-04-30 12:20 | W.PN.UPDATE ---
Update Note
Progress Note Update
patient seen chart reviewed. spoke with nursing. mr chao seemed a bit less confused today. my talk with him was rather structured so that may be why he seemed more on topic but yesterday it was also rather structed and yesterday every now and
then he would still drift off into speech i could not follow. he was also not exactly committing to the rehab. today. 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 he also said while he does not want to go to rehab he will 'give it a try'. overall he did seem calmer and less irritable. he has begun taking lithium. he reports no ill effects. put in an order for a level on
friday am. he is no longer on one to one. he has not required a prn (ativan ) since 2.25. he has not required haldol prn. will follow
--- NOTE | 2024-04-30 14:17 | W.PN.HOSP.TC ---
Addendum entered and electronically signed by Elis Tracy MD 04/30/24 14:51:
I saw and evaluated the patient independently. I reviewed the resident�s note and agree with findings and plan as documented by Dr. Cadena.
GENERAL: well developed, well nourished, male in no apparent distress
HEENT: NC/AT--no O2 requirements
HEART: regular rate and rhythm, +S1, +S2
LUNGS : clear to auscultation bilaterally
ABDOM: soft, nontender, nondistended, + bowel sounds
EXT: no cyanosis, clubbing, or edema
NEUROLOGIC: grossly intact
PSYCH: remains with altered mental status, impulsive
Persistent encephalopathy (very much acting like brain injury patient)-- suspect combination of Wernicke's encephalopathy from long-term alcohol dependence/use plus anoxic injury from PEA arrest --cont thiamine/folate--maintain abstinence from
ETOH--time will tell if improvement will be had, although this is likely NEW BASELINE--cont seroquel--MRI noted--apprec PM&R gina--was candidate for [facility] [place], to resubmit request- 1:1 discontinued--apprec psych--much
better on lithium--stopped LUCIA/ARB due to interaction
Persistent Afib-- Off cardizem drip. On Digoxin/Toprol--Eliquis restarted--apprec cards--no plans for procedures at this point
Acute on chronic HFrEF - Echo showing EF of 30-35% with global hypokinesis w/ small pericardial effusion--lasix
Dysphagia -diet per speech therapy
Hypertension, primary likely--pt with some hypotension as well--midodrine continued
Resolved acute issues:
Anemia likely acute from blood loss (epistaxis/GI bleed) in combination from Eliquis, with iron deficiency component--s/p pRBC--HGB stable--cont protonix
Vtach Cardiac Arrest w/ CPR--TTM not initiated due to UGI bleed. Head CT showed atrophy and EEG showed diffuse cortical dysfunction without focal abnormality and no seizure activity- Extubated, off sedation
Sepsis, likely secondary to COVID-19 Infection- Febrile for several days without white count, initially thought propofol rxn vs. bacterial infection, however repeat covid test on 03/28/24 positive--s/p zosyn/decadron/Remdesivir
Alcohol Use Disorder w/possible withdrawal seizure- MSAS protocol. Thiamine and Folic acid, Ativan per protocol. Finished phenobarb taper.
Superficial Venous Thrombus - swelling in L arm near peripheral line, US confirmed L basilic vein thrombosis. Line removed--back on Eliquis
Upper GI Bleed w/ Epistaxis (resolved)- S/p 1u pRBCs. s/p TXA & cauterization for epistaxis. No signs of active bleeding on exam. Nasal packing removed. Will continue to monitor H&H. Transfuse if hgb <7.
Hyponatremia (resolved) - Off fluids. Assess volume status and replete as needed.
Hyperbilirubinemia (resolved) - possible component of hemolysis vs. Gilbert's Disease. Resolved now.
Transaminitis, likely alcoholic fatty liver, possible compounding shock liver (resolved) - Elevated AST/ALT on admission 2:1. history of alcohol use and obesity, possible chronic elevation from fatty liver vs. shock liver. AST/ALT normalized.
Lactic Acidosis (resolved) - was elevated immediately post cardiac arrest, has come back down. Blood gas showed metabolic acidosis without respiratory compensation; now normal pH.
Elevated troponins (resolved)- peaked, likely secondary to cardiac arrest.
Possible Aspiration Pneumonia, seen on admission (resolved as of 03/28/24)- Blood cx 03/27 NGTD x 48hrs, sputum cx showing usual yvette. COVID/Flu on admission negative. Completed IV Abx through 03/28.
Tracheitis-- Tracheal aspirate cx growing MSSA--no pna- finished Cefazolin course
influenza A positive with sepsis--resolved--finished Tamiflu
Chronic stable conditions:
Asthma - was using his inhaler more frequently for night time shortness of breath [employer]. 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 sleep apnea vs. worsening Asthma, however history uncertain
Bipolar Disorder--- patient's mother states he was on Lexapro but stopped on his own due to weight gain--cont seroquel and ativan, dose reduced
DVT proph
CODE STATUS -- full code--was DNR on admission--revoked by pt Mother
Original Note:
Today's Communication/Plan
-
Patient continues on his lithium and last night he had no acute bouts of agitation. We will get a lithium level at the beginning of next week. He did not require an evening dose of Ativan. One-to-one has been discontinued.
Assessment / Plan
Assessment / Plan
Assessment/plan:
-Persistent altered mental status possibly due to Wernicke's encephalopathy secondary to long-term alcohol dependence: Improving
The patient has been getting thiamine and folate since his admission
Continue Seroquel 100 mg p.o. twice daily
Patient is no longer sedated and is extubated
MRI conducted on 04/11/2024 showed moderate age-related parenchymal atrophy. No MRI evidence for an acute infarct. Bilateral mastoid effusions. No mass effect, midline shift or extra-axial collection no abnormal signal intensity on
diffusion-weighted images.
Status unchanged from 04/13/2024
Haldol dosage was reduced to 1 mg IV every 8 hours as needed after recommendations from psychiatry. The patient is much more clear after this medication adjustment.
The patient's current mental status appears to be the patient's new baseline
Appreciate psychiatry recommendations- Coleta carbonate 300 mg p.o. twice daily started for improved mood stabilization�we will follow lithium levels
-Alcohol use disorder with possible withdrawal seizure -stable
On 03/24/2024 the patient was seen with seizure-like activity before becoming unresponsive requiring ACLS
MSAS protocol
Continue thiamine and folic acid with Ativan as per protocol.
Phenobarbital taper completed.
Ammonia level less than 9
-Ambulatory Dysfunction: Monitoring
Patient is much clearer on 04/14/2024 but remains unable to be steady on his feet.
PT OT evaluation recommends that the patient receive acute rehab upon discharge.
Appreciate PMNR evaluation -patient would be a candidate for [facility] at [place]. The patient would need to be off of restraints for and not on a one-to-one for at least 24 hours prior to discharge.
-Sepsis secondary to acute Influenza A Infection: Resolved
Nasal swab on 04/18/2024 positive for influenza A
White blood cells 4.0 on 04/19/2024
Blood pressure 99/64 on 04/19/2024
Pulse 101 on 04/18 at 19: 26
Temperature 101.2 on 04/18 at 19: 26
Elevated alkaline phosphatase at 140
Tamiflu 75 mg p.o. twice daily started for 5 days - Completed
-Hyperkalemia: Resolved
Potassium is 5.3 on 04/13/2024
The slight elevation may be due to lysis during blood draw -will recheck on next draw
Potassium 4.5 on 04/19/2024
-Persistent atrial fibrillation: Monitoring
Patient is on Toprol-XL 100 mg twice daily
Patient currently on digoxin 250 mcg -check digoxin levels on the day of discharge and again 1 month after discharge
Cardiology restarted benazepril on 04/12/2024
Cardiology recommends avoiding usage calcium channel blockers if possible given reduced left ventricular ejection fraction
Sacubitril/valsartan 24 mg / 26 mg twice daily started
Patient is still scheduled for PVI on May 2024
Heart rate is better controlled�stop digoxin -digoxin level ordered- WNL
Patient systolic blood pressure was in the 80s on 04/23/2024�midodrine 2.5 mg 3 times daily added -this has been increased to midodrine 5 mg p.o. 3 times daily on 12/23/2024
-Anemia, multifactorial with iron deficiency: Stable
On a PPI with lansoprazole
Persistently low hemoglobin around 9 despite no obvious signs of bleed
Iron, iron saturation, and ferritin were low on prior labs. Continue oral iron
-Essential hypertension:
Continue metoprolol succinate 100 mg p.o. twice daily
-Dysphagia: Stable
Cleared for IDDSI�6 diet by speech therapy
-Tracheitis: Stable
Tracheal aspirate culture sample grew MSSA
Finished cefazolin course
-Acute on chronic HFrEF: Stable
Prior echo shows ejection fraction of 30 to 35% with global hypokinesis and small pericardial effusion
Continue Farxiga/Entresto/Toprol-XL with holding parameters adjusted to systolic blood pressure < 90
Appreciate cardiology recommendations. They have set up an outpatient follow-up.
May resume Lasix after discontinuing spironolactone 12.5 mg p.o. daily
-V. tach cardiac arrest with CPR: Monitoring
Chest x-ray did not show any osseous abnormality
Weaned off pressure support
Head CT shows atrophy and EEG showed diffuse cortical dysfunction without focal abnormality and no seizure activity
Patient is extubated and off sedation
-Sepsis, secondary to COVID-19 infection: Stable
Patient was febrile for several days without an elevated white count. Initially this was thought to be a propofol reaction versus a bacterial infection however repeat COVID test on 03/28/2024 was positive. Patient was hypothermic at 96.6 �F,
tachycardic at 102 suggesting that COVID-19 was the causative factor.
Patient has completed Zosyn. Finished 1 dose of Decadron and 5 days of remdesivir
-Superficial venous thrombus: Monitoring
Swelling in left arm near peripheral line
Ultrasound confirmed left basilic vein thrombosis�line removed�will observe
-Hyponatremia: Resolved
Assess volume status and replete as needed
-Hyperbilirubinemia: Resolved
A possible component of hemolysis versus Gilbert's disease.
Continue to monitor
-Transaminitis likely secondary due to alcoholic fatty liver with possible compounding shock liver: Resolved
Patient had an elevated AST and ALT on admission with a ratio of 2:1
Has a history of alcohol use and obesity
-Lactic acidemia: Resolved
Was elevated immediately following his cardiac arrest. Has come back down.
-Asthma: Stable
Continue to monitor
-Bipolar disorder: Stable
Patient's mother states that he used to be on Lexapro but stopped on his own due to weight gain. Appreciate psychiatry consult. Psychiatry is under the impression that the patient's encephalopathy is due to a lot more than alcohol withdrawal.
Note that he had atrophy on his CAT scan well before he came to [facility] and notes numerous comorbidities including cardiac arrest which they believe are contributing to his cognitive decline. They recommended staying away from sedating
meds as much as possible. They also noted to be aware of IV Haldol usage as the patient had a prolonged QTc earlier in the admission.
-Obesity:
Patient's BMI was greater than 30 on admission and remains greater than 30 throughout this hospital stay
Diet - IDDSI-6
DVT Ppx - SCDs
GI Ppx - Lansoprazole 30 BID
Code Status - Full Code
Imaging:
Brain MRI on 04/11/2024: No MRI evidence for acute infarct. Bilateral mastoid effusions. Moderate age-related parenchymal atrophy. No masslike effect, midline shift, or extra-axial collection.
Anticipated Discharge: > 48 hours
Subjective/Interval History
-
Date of Service: April 30, 2024
Met patient at the bedside. He had a better night last night and has no complaints at the present time. Seen sitting watching TV and relaxing. Mother was visiting him today.
Objective Data
-
Labs:
Labs
04/29/24 19:27
04/29/24 19:27
Vital Signs:
Vital Signs
Temp Pulse Resp BP Pulse Ox
97.9 F 73 16 103/66 97
04/30/24 07:10 04/30/24 07:10 04/30/24 07:10 04/30/24 07:10 04/30/24 07:10
I&O
04/29/24 04/30/24 05/01/24
06:59 06:59 06:59
Intake Total 2139 / 2139 2159 2159
Output Total
Balance 2137
Review of Systems
-
History Source: Patient
Constitutional: Reports No Symptoms
EENT: Reports No Symptoms Reported
Respiratory: Reports No Symptoms
Cardiac: Reports No Symptoms
Abdomen/GI: Reports No Symptoms
Breast: Reports No Symptoms
Genitourinary: Reports No Symptoms
Musculoskeletal: Reports No Symptoms
Skin: Reports No Symptoms
Neuro: Reports No Symptoms
Endocrine: Reports No Symptoms
Hematologic / Lymphatic: Reports No Symptoms
Allergy / Immunology: Reports No Symptoms
Physical Exam
-
General: Well Developed, Well Nourished and No Apparent Distress
HEENT: Normocephalic, Atraumatic and Moist Mucous Membranes
Respiratory: Clear to Auscultation
Cardiac: S1/S2
GI: Soft, Nontender, Nondistended and Normal Bowel Sounds
Rectal: Deferred by Provider
Genito-urinary: Deferred by me
Musculoskeletal: No Clubbing
Skin: Warm and Dry
Neuro: Awake, Alert, Oriented and AO x 3
Psych: Calm
--- NOTE | 2024-04-30 14:48 | CM ---
Patient seen at bedside with physicians. Patient now on lithium, patient not on 1;1 although he likes to have someone take him for a walk. behaviors over night have been better per aide. CM will plan to resend referrals to [place] on friday to update
following period of time for medication to be in place. CM will continue to follow for discharge planning needs.
Plan; ACUTE REHB: referrals to be updated and sent friday.
[2024-04-30 15:10] VITALS: BP 118/72
--- NOTE | 2024-04-30 17:49 | PTCARENOTE ---
pt calm, cooperative this shift, took his meds, took a walk around the unit with PT and with staff other times, good appetite, mom visited briefly at lunch time. watching TV in the room.
[2024-04-30 20:53] VITALS: BP 109/67
[2024-04-30] MEDS: DESENEX/MITRAZOL/ZEASORB TOPICAL (21:02)
[2024-04-30 23:15] VITALS: BP 100/65
[2024-05-01 05:17] VITALS: BMI 32.2
[2024-05-01 06:48] LABS: Hematocrit 37.5 % (39.0-52.0); Hemoglobin 11.6 g/dL (13.0-18.0); Mean Corp Hgb Conc. 30.9 g/dL (33.0-37.0); Mean Corpuscular Volume 84.1 fL (80.0-94.0); Mean Platelet Volume 9.9 fL (7.4-10.4); Platelet Count 252 10^3/uL (130-400); Red Blood Cell Count 4.46 10^6/uL (4.70-6.10); Red Cell Dist. Width 15.5 % (11.5-14.5); White Blood Cell Count 4.7 10^3/uL (4.8-10.8)
[2024-05-01 07:04] LABS: ALT (SGPT) 31 U/L (0-50); AST (SGOT) 29 U/L (17-59); Albumin 4.4 g/dl (3.5-5.0); Alkaline Phosphatase 116 U/L (38-126); Blood Urea Nitrogen 7 mg/dl (9-20); Calcium 9.9 mg/dl (8.4-10.2); Carbon Dioxide 26 mmol/L (22-30); Chloride 103 mmol/L (98-107); Estimated Creatinine Clearance > 125 ml/min; Glucose 118 mg/dl (70-99); Potassium 4.5 mmol/L (3.5-5.1); Sodium 138 mmol/L (135-145); Total Bilirubin 0.7 mg/dl (0.2-1.3); Total Protein 6.8 g/dl (6.3-8.2); eGFR > 60.00
[2024-05-01 07:10] VITALS: BP 111/61
[2024-05-01] MEDS: ProAmatine 5 MG PO ×3 (07:49→16:57)
[2024-05-01] MEDS: FARXIGA 10 MG PO (07:49)
[2024-05-01] MEDS: TOPROL XL 100 MG PO ×2 (07:49→20:31)
[2024-05-01] MEDS: PROTONIX 40 MG PO ×2 (07:49→20:33)
[2024-05-01] MEDS: NEURONTIN 300 MG PO ×3 (07:49→20:35)
[2024-05-01] MEDS: FEOSOL 325 MG PO (07:50)
[2024-05-01] MEDS: SEROQUEL 100 MG PO ×2 (07:50→20:33)
[2024-05-01] MEDS: ELIQUIS 5 MG PO ×2 (07:50→20:33)
[2024-05-01] MEDS: ALDACTONE 12.5 MG PO (07:50)
[2024-05-01] MEDS: LITHOBID (EXTENDED RELEASE) 300 MG PO ×2 (07:50→20:33)
[2024-05-01] MEDS: FOLVITE 1 MG PO (07:50)
[2024-05-01] MEDS: DESENEX/MITRAZOL/ZEASORB 1 APPLIC TOPICAL (07:50)
--- NOTE | 2024-05-01 13:16 | W.PN.UPDATE ---
Update Note
Progress Note Update
Patient is doing reasonably well. He is still impatient and impulsive but not significantly agitated or aggressive. Intermittently he wants to go home but is able to be redirected.
Will order [place] level.
--- NOTE | 2024-05-01 15:40 | W.PN.HOSP.TC ---
Addendum entered and electronically signed by Elis Tracy MD 05/01/24 15:55:
I saw and evaluated the patient independently. I reviewed the resident�s note and agree with findings and plan as documented by Dr. Cadena.
GENERAL: well developed, well nourished, male in no apparent distress
HEENT: NC/AT--no O2 requirements
HEART: regular rate and rhythm, +S1, +S2
LUNGS : clear to auscultation bilaterally
ABDOM: soft, nontender, nondistended, + bowel sounds
EXT: no cyanosis, clubbing, or edema
NEUROLOGIC: grossly intact
PSYCH: remains with altered mental status, impulsive
Persistent encephalopathy (very much acting like brain injury patient)-- suspect combination of Wernicke's encephalopathy from long-term alcohol dependence/use plus anoxic injury from PEA arrest --cont thiamine/folate--maintain abstinence from
ETOH--time will tell if improvement will be had, although this is likely NEW BASELINE--cont seroquel--MRI noted--apprec PM&R gina--was candidate for [facility] [place], to resubmit request- 1:1 discontinued--apprec psych--much
better on lithium--stopped LUCIA/ARB due to interaction, BP lower anyway
Persistent Afib-- On Digoxin/Toprol--Eliquis restarted--apprec cards--no plans for procedures at this point
Acute on chronic HFrEF - Echo showing EF of 30-35% with global hypokinesis w/ small pericardial effusion--lasix
Dysphagia -diet per speech therapy
Essential Hypertension--pt with some hypotension as well--midodrine continued
Resolved acute issues:
Anemia likely acute from blood loss (epistaxis/GI bleed) in combination from Eliquis, with iron deficiency component--s/p pRBC--HGB stable--cont protonix
Vtach Cardiac Arrest w/ CPR--TTM not initiated due to UGI bleed. Head CT showed atrophy and EEG showed diffuse cortical dysfunction without focal abnormality and no seizure activity- Extubated, off sedation
Sepsis, likely secondary to COVID-19 Infection- Febrile for several days without white count, initially thought propofol rxn vs. bacterial infection, however repeat covid test on 03/28/24 positive--s/p zosyn/decadron/Remdesivir
Alcohol Use Disorder w/possible withdrawal seizure- MSAS protocol. Thiamine and Folic acid, Ativan per protocol. Finished phenobarb taper.
Superficial Venous Thrombus - swelling in L arm near peripheral line, US confirmed L basilic vein thrombosis. Line removed--back on Eliquis
Upper GI Bleed w/ Epistaxis (resolved)- S/p 1u pRBCs. s/p TXA & cauterization for epistaxis. No signs of active bleeding on exam. Nasal packing removed. Will continue to monitor H&H. Transfuse if hgb <7.
Hyponatremia (resolved) - Off fluids. Assess volume status and replete as needed.
Hyperbilirubinemia (resolved) - possible component of hemolysis vs. Gilbert's Disease. Resolved now.
Transaminitis, likely alcoholic fatty liver, possible compounding shock liver (resolved) - Elevated AST/ALT on admission 2:1. history of alcohol use and obesity, possible chronic elevation from fatty liver vs. shock liver. AST/ALT normalized.
Lactic Acidosis (resolved) - was elevated immediately post cardiac arrest, has come back down. Blood gas showed metabolic acidosis without respiratory compensation; now normal pH.
Elevated troponins (resolved)- peaked, likely secondary to cardiac arrest.
Possible Aspiration Pneumonia, seen on admission (resolved as of 03/28/24)- Blood cx 03/27 NGTD x 48hrs, sputum cx showing usual yvette. COVID/Flu on admission negative. Completed IV Abx through 03/28.
Tracheitis-- Tracheal aspirate cx growing MSSA--no pna- finished Cefazolin course
influenza A positive with sepsis--resolved--finished Tamiflu
Chronic stable conditions:
Asthma - was using his inhaler more frequently for night time shortness of breath [employer]. 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 sleep apnea vs. worsening Asthma, however history uncertain
Bipolar Disorder--- patient's mother states he was on Lexapro but stopped on his own due to weight gain--cont seroquel and ativan, dose reduced
DVT proph
CODE STATUS -- full code--was DNR on admission--revoked by pt Mother
Original Note:
Today's Communication/Plan
-
Patient remains medically stable and is currently receiving lithium. Psychiatry has put in an order for lithium levels tomorrow.
Assessment / Plan
Assessment / Plan
Assessment/plan:
-Persistent altered mental status possibly due to Wernicke's encephalopathy secondary to long-term alcohol dependence: Improving
The patient has been getting thiamine and folate since his admission
Continue Seroquel 100 mg p.o. twice daily
Patient is no longer sedated and is extubated
MRI conducted on 04/11/2024 showed moderate age-related parenchymal atrophy. No MRI evidence for an acute infarct. Bilateral mastoid effusions. No mass effect, midline shift or extra-axial collection no abnormal signal intensity on
diffusion-weighted images.
Status unchanged from 04/13/2024
Haldol dosage was reduced to 1 mg IV every 8 hours as needed after recommendations from psychiatry. The patient is much more clear after this medication adjustment.
The patient's current mental status appears to be the patient's new baseline
Appreciate psychiatry recommendations- [place] carbonate 300 mg p.o. twice daily started for improved mood stabilization�we will follow lithium levels
-Alcohol use disorder with possible withdrawal seizure -stable
On 03/24/2024 the patient was seen with seizure-like activity before becoming unresponsive requiring ACLS
MSAS protocol
Continue thiamine and folic acid with Ativan as per protocol.
Phenobarbital taper completed.
Ammonia level less than 9
-Ambulatory Dysfunction: Monitoring
Patient is much clearer on 04/14/2024 but remains unable to be steady on his feet.
PT OT evaluation recommends that the patient receive acute rehab upon discharge.
Appreciate PMNR evaluation -patient would be a candidate for [facility] at [place]. The patient would need to be off of restraints for and not on a one-to-one for at least 24 hours prior to discharge.
-Sepsis secondary to acute Influenza A Infection: Resolved
Nasal swab on 04/18/2024 positive for influenza A
White blood cells 4.0 on 04/19/2024
Blood pressure 99/64 on 04/19/2024
Pulse 101 on 04/18 at 19: 26
Temperature 101.2 on 04/18 at 19: 26
Elevated alkaline phosphatase at 140
Tamiflu 75 mg p.o. twice daily started for 5 days - Completed
-Hyperkalemia: Resolved
Potassium is 5.3 on 04/13/2024
The slight elevation may be due to lysis during blood draw -will recheck on next draw
Potassium 4.5 on 04/19/2024
-Persistent atrial fibrillation: Monitoring
Patient is on Toprol-XL 100 mg twice daily
Patient currently on digoxin 250 mcg -check digoxin levels on the day of discharge and again 1 month after discharge
Cardiology restarted benazepril on 04/12/2024
Cardiology recommends avoiding usage calcium channel blockers if possible given reduced left ventricular ejection fraction
Sacubitril/valsartan 24 mg / 26 mg twice daily started
Patient is still scheduled for PVI on May 2024
Heart rate is better controlled�stop digoxin -digoxin level ordered- WNL
Patient systolic blood pressure was in the 80s on 04/23/2024�midodrine 2.5 mg 3 times daily added -this has been increased to midodrine 5 mg p.o. 3 times daily on 12/23/2024
-Anemia, multifactorial with iron deficiency: Stable
On a PPI with lansoprazole
Persistently low hemoglobin around 9 despite no obvious signs of bleed
Iron, iron saturation, and ferritin were low on prior labs. Continue oral iron
-Essential hypertension:
Continue metoprolol succinate 100 mg p.o. twice daily
-Dysphagia: Stable
Cleared for IDDSI�6 diet by speech therapy
-Tracheitis: Stable
Tracheal aspirate culture sample grew MSSA
Finished cefazolin course
-Acute on chronic HFrEF: Stable
Prior echo shows ejection fraction of 30 to 35% with global hypokinesis and small pericardial effusion
Continue Farxiga/Entresto/Toprol-XL with holding parameters adjusted to systolic blood pressure < 90
Appreciate cardiology recommendations. They have set up an outpatient follow-up.
May resume Lasix after discontinuing spironolactone 12.5 mg p.o. daily
-V. tach cardiac arrest with CPR: Monitoring
Chest x-ray did not show any osseous abnormality
Weaned off pressure support
Head CT shows atrophy and EEG showed diffuse cortical dysfunction without focal abnormality and no seizure activity
Patient is extubated and off sedation
-Sepsis, secondary to COVID-19 infection: Stable
Patient was febrile for several days without an elevated white count. Initially this was thought to be a propofol reaction versus a bacterial infection however repeat COVID test on 03/28/2024 was positive. Patient was hypothermic at 96.6 �F,
tachycardic at 102 suggesting that COVID-19 was the causative factor.
Patient has completed Zosyn. Finished 1 dose of Decadron and 5 days of remdesivir
-Superficial venous thrombus: Monitoring
Swelling in left arm near peripheral line
Ultrasound confirmed left basilic vein thrombosis�line removed�will observe
-Hyponatremia: Resolved
Assess volume status and replete as needed
-Hyperbilirubinemia: Resolved
A possible component of hemolysis versus Gilbert's disease.
Continue to monitor
-Transaminitis likely secondary due to alcoholic fatty liver with possible compounding shock liver: Resolved
Patient had an elevated AST and ALT on admission with a ratio of 2:1
Has a history of alcohol use and obesity
-Lactic acidemia: Resolved
Was elevated immediately following his cardiac arrest. Has come back down.
-Asthma: Stable
Continue to monitor
-Bipolar disorder: Stable
Patient's mother states that he used to be on Lexapro but stopped on his own due to weight gain. Appreciate psychiatry consult. Psychiatry is under the impression that the patient's encephalopathy is due to a lot more than alcohol withdrawal.
Note that he had atrophy on his CAT scan well before he came to [facility] and notes numerous comorbidities including cardiac arrest which they believe are contributing to his cognitive decline. They recommended staying away from sedating
meds as much as possible. They also noted to be aware of IV Haldol usage as the patient had a prolonged QTc earlier in the admission.
-Obesity:
Patient's BMI was greater than 30 on admission and remains greater than 30 throughout this hospital stay
Diet - IDDSI-6
DVT Ppx - SCDs
GI Ppx - Lansoprazole 30 BID
Code Status - Full Code
Imaging:
Brain MRI on 04/11/2024: No MRI evidence for acute infarct. Bilateral mastoid effusions. Moderate age-related parenchymal atrophy. No masslike effect, midline shift, or extra-axial collection.
Anticipated Discharge: 24 - 48 hours
Subjective/Interval History
-
Date of Service: May 01, 2024
Met with patient at the bedside. He is doing well and relaxing in his bed. He was seen playing a [employer] switch and talked about how he likes [employer]. He did not have any outbursts of agitation overnight.
Objective Data
-
Labs:
Laboratory Results
05/01/24
06:32
WBC 4.7 L
Hgb 11.6 L
Hct 37.5 L
Plt Count 252
Sodium 138
Potassium 4.5
Chloride 103
Carbon Dioxide 26
BUN 7 L
Creatinine 0.7
Glucose 118 H
Calcium 9.9
Total Bilirubin 0.7
AST 29
ALT 31
Alkaline Phosphatase 116
Vital Signs:
Vital Signs
Temp Pulse Resp BP Pulse Ox
97.4 F 72 16 95/52 97
05/01/24 07:10 05/01/24 07:10 05/01/24 07:10 05/01/24 12:40 05/01/24 07:10
I&O
04/30/24 05/01/24 05/02/24
06:59 06:59 06:59
Intake Total 2159 / 2159
Balance 2159 / 2159
Review of Systems
-
History Source: Patient
Constitutional: Reports No Symptoms
EENT: Reports No Symptoms Reported
Respiratory: Reports No Symptoms
Cardiac: Reports No Symptoms
Abdomen/GI: Reports No Symptoms
Breast: Reports No Symptoms
Genitourinary: Reports No Symptoms
Musculoskeletal: Reports No Symptoms
Skin: Reports No Symptoms
Neuro: Reports No Symptoms
Endocrine: Reports No Symptoms
Hematologic / Lymphatic: Reports No Symptoms
Physical Exam
-
General: Well Developed, Well Nourished, No Apparent Distress and Comfortable
HEENT: Normocephalic, Atraumatic and Moist Mucous Membranes
Respiratory: Clear to Auscultation
Cardiac: S1/S2; Negative Murmur or Rub
Breast: Deferred by me
GI: Soft, Nontender, Nondistended and Normal Bowel Sounds
Rectal: Deferred by Provider
Genito-urinary: Deferred by me
Musculoskeletal: No Clubbing, No Cyanosis and No Edema
Skin: Warm and Dry
Neuro: Awake, Alert and Oriented
Psych: Calm
[2024-05-01 15:54] VITALS: BP 104/71
[2024-05-01] MEDS: DESENEX/MITRAZOL/ZEASORB TOPICAL (20:37)
[2024-05-01] MEDS: TYLENOL 650 MG PO (23:06)
[2024-05-01 23:25] VITALS: BP 111/65
[2024-05-02 06:00] VITALS: BMI 32.5
[2024-05-02 06:00] LABS: Lithium 0.4 mmol/L (0.6-1.2)
[2024-05-02 07:15] VITALS: BP 106/74
[2024-05-02] MEDS: FARXIGA 10 MG PO (08:19)
[2024-05-02] MEDS: NEURONTIN 300 MG PO ×3 (08:19→21:02)
[2024-05-02] MEDS: SEROQUEL 100 MG PO ×2 (08:19→21:07)
[2024-05-02] MEDS: ProAmatine 5 MG PO ×3 (08:19→20:01)
[2024-05-02] MEDS: FEOSOL 325 MG PO (08:19)
[2024-05-02] MEDS: LITHOBID (EXTENDED RELEASE) 300 MG PO (08:19)
[2024-05-02] MEDS: PROTONIX 40 MG PO ×2 (08:19→21:02)
[2024-05-02] MEDS: ELIQUIS 5 MG PO ×2 (08:20→21:07)
[2024-05-02] MEDS: ALDACTONE 12.5 MG PO (08:20)
[2024-05-02] MEDS: FOLVITE 1 MG PO (08:20)
[2024-05-02] MEDS: TOPROL XL 100 MG PO ×2 (08:20→21:02)
[2024-05-02] MEDS: DESENEX/MITRAZOL/ZEASORB 1 APPLIC TOPICAL (08:21)
--- NOTE | 2024-05-02 10:18 | W.PN.HOSP.TC ---
Addendum entered and electronically signed by Elis Tracy MD 05/02/24 13:29:
I saw and evaluated the patient independently. I reviewed the resident�s note and agree with findings and plan as documented by Dr. Cadena.
GENERAL: well developed, well nourished, male in no apparent distress
HEENT: NC/AT--no O2 requirements
HEART: regular rate and rhythm, +S1, +S2
LUNGS : clear to auscultation bilaterally
ABDOM: soft, nontender, nondistended, + bowel sounds
EXT: no cyanosis, clubbing, or edema
NEUROLOGIC: grossly intact
PSYCH: remains with altered mental status, impulsive less so--behaviors much improved
Persistent encephalopathy (very much acting like brain injury patient)-- suspect combination of Wernicke's encephalopathy from long-term alcohol dependence/use plus anoxic injury from PEA arrest --cont thiamine/folate--maintain abstinence from
ETOH--time will tell if improvement will be had, although this is likely NEW BASELINE--cont seroquel--MRI noted--apprec PM&R gina--was candidate for [facility] at [place], to resubmit request- 1:1 discontinued--apprec psych--much
better on lithium--stopped LUCIA/ARB due to interaction, BP lower anyway
Persistent Afib-- On Digoxin/Toprol--Eliquis restarted--apprec cards--no plans for procedures at this point
Acute on chronic HFrEF - Echo showing EF of 30-35% with global hypokinesis w/ small pericardial effusion--lasix
Dysphagia -diet per speech therapy
Essential Hypertension--pt with some hypotension as well--midodrine continued
Resolved acute issues:
Anemia likely acute from blood loss (epistaxis/GI bleed) in combination from Eliquis, with iron deficiency component--s/p pRBC--HGB stable--cont protonix
Vtach Cardiac Arrest w/ CPR--TTM not initiated due to UGI bleed. Head CT showed atrophy and EEG showed diffuse cortical dysfunction without focal abnormality and no seizure activity- Extubated, off sedation
Sepsis, likely secondary to COVID-19 Infection- Febrile for several days without white count, initially thought propofol rxn vs. bacterial infection, however repeat covid test on 03/28/24 positive--s/p zosyn/decadron/Remdesivir
Alcohol Use Disorder w/possible withdrawal seizure- MSAS protocol. Thiamine and Folic acid, Ativan per protocol. Finished phenobarb taper.
Superficial Venous Thrombus - swelling in L arm near peripheral line, US confirmed L basilic vein thrombosis. Line removed--back on Eliquis
Upper GI Bleed w/ Epistaxis (resolved)- S/p 1u pRBCs. s/p TXA & cauterization for epistaxis. No signs of active bleeding on exam. Nasal packing removed. Will continue to monitor H&H. Transfuse if hgb <7.
Hyponatremia (resolved) - Off fluids. Assess volume status and replete as needed.
Hyperbilirubinemia (resolved) - possible component of hemolysis vs. Gilbert's Disease. Resolved now.
Transaminitis, likely alcoholic fatty liver, possible compounding shock liver (resolved) - Elevated AST/ALT on admission 2:1. history of alcohol use and obesity, possible chronic elevation from fatty liver vs. shock liver. AST/ALT normalized.
Lactic Acidosis (resolved) - was elevated immediately post cardiac arrest, has come back down. Blood gas showed metabolic acidosis without respiratory compensation; now normal pH.
Elevated troponins (resolved)- peaked, likely secondary to cardiac arrest.
Possible Aspiration Pneumonia, seen on admission (resolved as of 03/28/24)- Blood cx 03/27 NGTD x 48hrs, sputum cx showing usual yvette. COVID/Flu on admission negative. Completed IV Abx through 03/28.
Tracheitis-- Tracheal aspirate cx growing MSSA--no pna- finished Cefazolin course
influenza A positive with sepsis--resolved--finished Tamiflu
Chronic stable conditions:
Asthma - was using his inhaler more frequently for night time shortness of breath [employer]. 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 sleep apnea vs. worsening Asthma, however history uncertain
Bipolar Disorder--- patient's mother states he was on Lexapro but stopped on his own due to weight gain--cont seroquel and ativan, dose reduced
DVT proph
CODE STATUS -- full code--was DNR on admission--revoked by pt Mother
Original Note:
Today's Communication/Plan
-
Patient appears to be doing well on lithium and has not had any outbursts. Patient's lithium level is 0.4 and is subtherapeutic. We will conduct lithium levels tomorrow as well to further assess.
Assessment / Plan
Assessment / Plan
Assessment/plan:
-Persistent altered mental status possibly due to Wernicke's encephalopathy secondary to long-term alcohol dependence: Improving
The patient has been getting thiamine and folate since his admission
Continue Seroquel 100 mg p.o. twice daily
Patient is no longer sedated and is extubated
MRI conducted on 04/11/2024 showed moderate age-related parenchymal atrophy. No MRI evidence for an acute infarct. Bilateral mastoid effusions. No mass effect, midline shift or extra-axial collection no abnormal signal intensity on
diffusion-weighted images.
Status unchanged from 04/13/2024
Haldol dosage was reduced to 1 mg IV every 8 hours as needed after recommendations from psychiatry. The patient is much more clear after this medication adjustment.
The patient's current mental status appears to be the patient's new baseline
Appreciate psychiatry recommendations- [place] carbonate 300 mg p.o. twice daily started for improved mood stabilization�we will follow lithium levels -lithium level on 05/02/24 was 0.4 and subtherapeutic
-Alcohol use disorder with possible withdrawal seizure -stable
On 03/24/2024 the patient was seen with seizure-like activity before becoming unresponsive requiring ACLS
MSAS protocol
Continue thiamine and folic acid with Ativan as per protocol.
Phenobarbital taper completed.
Ammonia level less than 9
-Ambulatory Dysfunction: Monitoring
Patient is much clearer on 04/14/2024 but remains unable to be steady on his feet.
PT OT evaluation recommends that the patient receive acute rehab upon discharge.
Appreciate PMNR evaluation -patient would be a candidate for [facility] at [place]. The patient would need to be off of restraints for and not on a one-to-one for at least 24 hours prior to discharge.
-Sepsis secondary to acute Influenza A Infection: Resolved
Nasal swab on 04/18/2024 positive for influenza A
White blood cells 4.0 on 04/19/2024
Blood pressure 99/64 on 04/19/2024
Pulse 101 on 04/18 at 19: 26
Temperature 101.2 on 04/18 at 19: 26
Elevated alkaline phosphatase at 140
Tamiflu 75 mg p.o. twice daily started for 5 days - Completed
-Hyperkalemia: Resolved
Potassium is 5.3 on 04/13/2024
The slight elevation may be due to lysis during blood draw -will recheck on next draw
Potassium 4.5 on 04/19/2024
-Persistent atrial fibrillation: Monitoring
Patient is on Toprol-XL 100 mg twice daily
Patient currently on digoxin 250 mcg -check digoxin levels on the day of discharge and again 1 month after discharge
Cardiology restarted benazepril on 04/12/2024
Cardiology recommends avoiding usage calcium channel blockers if possible given reduced left ventricular ejection fraction
Sacubitril/valsartan 24 mg / 26 mg twice daily started
Patient is still scheduled for PVI on May 2024
Heart rate is better controlled�stop digoxin -digoxin level ordered- WNL
Patient systolic blood pressure was in the 80s on 04/23/2024�midodrine 2.5 mg 3 times daily added -this has been increased to midodrine 5 mg p.o. 3 times daily on 12/23/2024
-Anemia, multifactorial with iron deficiency: Stable
On a PPI with lansoprazole
Persistently low hemoglobin around 9 despite no obvious signs of bleed
Iron, iron saturation, and ferritin were low on prior labs. Continue oral iron
-Essential hypertension:
Continue metoprolol succinate 100 mg p.o. twice daily
-Dysphagia: Stable
Cleared for IDDSI�6 diet by speech therapy
-Tracheitis: Stable
Tracheal aspirate culture sample grew MSSA
Finished cefazolin course
-Acute on chronic HFrEF: Stable
Prior echo shows ejection fraction of 30 to 35% with global hypokinesis and small pericardial effusion
Continue Farxiga/Entresto/Toprol-XL with holding parameters adjusted to systolic blood pressure < 90
Appreciate cardiology recommendations. They have set up an outpatient follow-up.
May resume Lasix after discontinuing spironolactone 12.5 mg p.o. daily
-V. tach cardiac arrest with CPR: Monitoring
Chest x-ray did not show any osseous abnormality
Weaned off pressure support
Head CT shows atrophy and EEG showed diffuse cortical dysfunction without focal abnormality and no seizure activity
Patient is extubated and off sedation
-Sepsis, secondary to COVID-19 infection: Stable
Patient was febrile for several days without an elevated white count. Initially this was thought to be a propofol reaction versus a bacterial infection however repeat COVID test on 03/28/2024 was positive. Patient was hypothermic at 96.6 �F,
tachycardic at 102 suggesting that COVID-19 was the causative factor.
Patient has completed Zosyn. Finished 1 dose of Decadron and 5 days of remdesivir
-Superficial venous thrombus: Monitoring
Swelling in left arm near peripheral line
Ultrasound confirmed left basilic vein thrombosis�line removed�will observe
-Hyponatremia: Resolved
Assess volume status and replete as needed
-Hyperbilirubinemia: Resolved
A possible component of hemolysis versus Gilbert's disease.
Continue to monitor
-Transaminitis likely secondary due to alcoholic fatty liver with possible compounding shock liver: Resolved
Patient had an elevated AST and ALT on admission with a ratio of 2:1
Has a history of alcohol use and obesity
-Lactic acidemia: Resolved
Was elevated immediately following his cardiac arrest. Has come back down.
-Asthma: Stable
Continue to monitor
-Bipolar disorder: Stable
Patient's mother states that he used to be on Lexapro but stopped on his own due to weight gain. Appreciate psychiatry consult. Psychiatry is under the impression that the patient's encephalopathy is due to a lot more than alcohol withdrawal.
Note that he had atrophy on his CAT scan well before he came to [facility] and notes numerous comorbidities including cardiac arrest which they believe are contributing to his cognitive decline. They recommended staying away from sedating
meds as much as possible. They also noted to be aware of IV Haldol usage as the patient had a prolonged QTc earlier in the admission.
-Obesity:
Patient's BMI was greater than 30 on admission and remains greater than 30 throughout this hospital stay
Diet - IDDSI-6
DVT Ppx - SCDs
GI Ppx - Lansoprazole 30 BID
Code Status - Full Code
Imaging:
Brain MRI on 04/11/2024: No MRI evidence for acute infarct. Bilateral mastoid effusions. Moderate age-related parenchymal atrophy. No masslike effect, midline shift, or extra-axial collection.
Anticipated Discharge: 24 - 48 hours
Subjective/Interval History
-
Date of Service: May 02, 2024
Met with patient at the bedside. He is doing well and is aware that he is likely to be discharged to [facility] at [place]. He looks forward to his upcoming discharge if all goes well.
Objective Data
-
Vital Signs:
Vital Signs
Temp Pulse Resp BP Pulse Ox
98.3 F 79 16 106/74 97
05/02/24 07:15 05/02/24 08:20 05/02/24 07:15 05/02/24 08:20 05/02/24 07:15
I&O
05/01/24 05/02/24 05/03/24
06:59 06:59 06:59
Intake Total 1919
Balance 1919
Review of Systems
-
History Source: Patient
Constitutional: Reports No Symptoms
EENT: Reports No Symptoms Reported
Respiratory: Reports No Symptoms
Cardiac: Reports No Symptoms
Abdomen/GI: Reports No Symptoms
Breast: Reports No Symptoms
Genitourinary: Reports No Symptoms
Musculoskeletal: Reports No Symptoms
Skin: Reports No Symptoms
Neuro: Reports No Symptoms
Endocrine: Reports No Symptoms
Hematologic / Lymphatic: Reports No Symptoms
Physical Exam
-
General: Well Developed, Well Nourished and No Apparent Distress
HEENT: Normocephalic, Atraumatic and Moist Mucous Membranes
Respiratory: Clear to Auscultation
Cardiac: S1/S2
GI: Soft, Nontender and Nondistended
Rectal: Deferred by Provider
Genito-urinary: Deferred by me
Musculoskeletal: No Clubbing, No Cyanosis and No Edema
Skin: Warm and Dry; Negative Rash
Neuro: Awake, Alert and Oriented
Psych: Calm
--- NOTE | 2024-05-02 12:09 | W.PN.UPDATE ---
Update Note
Progress Note Update
Patient is rather impatient; wants to leave but can be redirected. Not agitated or aggressive.
[place] level is subtherapeutic at 0.4; will increase to 900 mg daily and repeat.
Discussed with patient and mother particularly about regular psychiatric F/U.
[2024-05-02 14:39] VITALS: BP 111/77
[2024-05-02] MEDS: DESENEX/MITRAZOL/ZEASORB TOPICAL (20:03)
[2024-05-02] MEDS: ESKALITH ER (EXTENDED RELEASE) 450 MG PO (21:07)
[2024-05-02 23:12] VITALS: BP 110/75
[2024-05-03 06:00] VITALS: BMI 32.4
--- NOTE | 2024-05-03 07:19 | W.PN.HOSP.TC ---
Addendum entered and electronically signed by Obie Arndt MD 05/03/24 16:55:
Seen and examined by me independently in collaboration with the medical concierge.
Lab data and imaging data reviewed.
Agree with note below. Ongoing disposition efforts.
Original Note:
Today's Communication/Plan
-
Patient appears to be back at his baseline. He is tolerating his lithium doses well and is now at the lower end of the therapeutic range at 0.6. We continue to work to find placement for this patient as he needs rehab.
Assessment / Plan
Assessment / Plan
Assessment/plan:
-Persistent altered mental status possibly due to Wernicke's encephalopathy secondary to long-term alcohol dependence: Stable
The patient has been getting thiamine and folate since his admission
Continue Seroquel 100 mg p.o. twice daily
Patient is no longer sedated and is extubated
MRI conducted on 04/11/2024 showed moderate age-related parenchymal atrophy. No MRI evidence for an acute infarct. Bilateral mastoid effusions. No mass effect, midline shift or extra-axial collection no abnormal signal intensity on
diffusion-weighted images.
Status unchanged from 04/13/2024
Haldol dosage was reduced to 1 mg IV every 8 hours as needed after recommendations from psychiatry. The patient is much more clear after this medication adjustment.
The patient's current mental status appears to be the patient's new baseline
Appreciate psychiatry recommendations- [place] carbonate increased to 900 mg daily �we will follow lithium levels -lithium level on 05/02/24 was 0.4 and subtherapeutic, lithium level on 05/03/2024 is 0.6 mmol/L which is within the lower end of the
therapeutic range.
-Alcohol use disorder with possible withdrawal seizure -stable
On 03/24/2024 the patient was seen with seizure-like activity before becoming unresponsive requiring ACLS
MSAS protocol
Continue thiamine and folic acid with Ativan as per protocol.
Phenobarbital taper completed.
Ammonia level less than 9
-Ambulatory Dysfunction: Monitoring
Patient is much clearer on 04/14/2024 but remains unable to be steady on his feet.
PT OT evaluation recommends that the patient receive acute rehab upon discharge.
Appreciate PMNR evaluation -patient would be a candidate for [facility] at [place]. The patient would need to be off of restraints for and not on a one-to-one for at least 24 hours prior to discharge.
-Sepsis secondary to acute Influenza A Infection: Resolved
Nasal swab on 04/18/2024 positive for influenza A
White blood cells 4.0 on 04/19/2024
Blood pressure 99/64 on 04/19/2024
Pulse 101 on 04/18 at 19: 26
Temperature 101.2 on 04/18 at 19: 26
Elevated alkaline phosphatase at 140
Tamiflu 75 mg p.o. twice daily started for 5 days - Completed
-Hyperkalemia: Resolved
Potassium is 5.3 on 04/13/2024
The slight elevation may be due to lysis during blood draw -will recheck on next draw
Potassium 4.5 on 04/19/2024
-Persistent atrial fibrillation: Monitoring
Patient is on Toprol-XL 100 mg twice daily
Patient currently on digoxin 250 mcg -check digoxin levels on the day of discharge and again 1 month after discharge
Cardiology restarted benazepril on 04/12/2024
Cardiology recommends avoiding usage calcium channel blockers if possible given reduced left ventricular ejection fraction
Sacubitril/valsartan 24 mg / 26 mg twice daily started
Patient is still scheduled for PVI on May 2024
Heart rate is better controlled�stop digoxin -digoxin level ordered- WNL
Patient systolic blood pressure was in the 80s on 04/23/2024�midodrine 2.5 mg 3 times daily added -this has been increased to midodrine 5 mg p.o. 3 times daily on 12/23/2024
-Anemia, multifactorial with iron deficiency: Stable
On a PPI with lansoprazole
Persistently low hemoglobin around 9 despite no obvious signs of bleed
Iron, iron saturation, and ferritin were low on prior labs. Continue oral iron
-Essential hypertension: Stable
Continue metoprolol succinate 100 mg p.o. twice daily
-Dysphagia: Stable
Cleared for IDDSI�6 diet by speech therapy
-Tracheitis: Stable
Tracheal aspirate culture sample grew MSSA
Finished cefazolin course
-Acute on chronic HFrEF: Stable
Prior echo shows ejection fraction of 30 to 35% with global hypokinesis and small pericardial effusion
Continue Farxiga/Entresto/Toprol-XL with holding parameters adjusted to systolic blood pressure < 90
Appreciate cardiology recommendations. They have set up an outpatient follow-up.
May resume Lasix after discontinuing spironolactone 12.5 mg p.o. daily
-V. tach cardiac arrest with CPR: Monitoring
Chest x-ray did not show any osseous abnormality
Weaned off pressure support
Head CT shows atrophy and EEG showed diffuse cortical dysfunction without focal abnormality and no seizure activity
Patient is extubated and off sedation
-Sepsis, secondary to COVID-19 infection: Stable
Patient was febrile for several days without an elevated white count. Initially this was thought to be a propofol reaction versus a bacterial infection however repeat COVID test on 03/28/2024 was positive. Patient was hypothermic at 96.6 �F,
tachycardic at 102 suggesting that COVID-19 was the causative factor.
Patient has completed Zosyn. Finished 1 dose of Decadron and 5 days of remdesivir
-Superficial venous thrombus: Monitoring
Swelling in left arm near peripheral line
Ultrasound confirmed left basilic vein thrombosis�line removed�will observe
-Hyponatremia: Resolved
Assess volume status and replete as needed
-Hyperbilirubinemia: Resolved
A possible component of hemolysis versus Gilbert's disease.
Continue to monitor
-Transaminitis likely secondary due to alcoholic fatty liver with possible compounding shock liver: Resolved
Patient had an elevated AST and ALT on admission with a ratio of 2:1
Has a history of alcohol use and obesity
-Lactic acidemia: Resolved
Was elevated immediately following his cardiac arrest. Has come back down.
-Asthma: Stable
Continue to monitor
-Bipolar disorder: Stable
Patient's mother states that he used to be on Lexapro but stopped on his own due to weight gain. Appreciate psychiatry consult. Psychiatry is under the impression that the patient's encephalopathy is due to a lot more than alcohol withdrawal.
Note that he had atrophy on his CAT scan well before he came to [facility] and notes numerous comorbidities including cardiac arrest which they believe are contributing to his cognitive decline. They recommended staying away from sedating
meds as much as possible. They also noted to be aware of IV Haldol usage as the patient had a prolonged QTc earlier in the admission.
-Obesity:
Patient's BMI was greater than 30 on admission and remains greater than 30 throughout this hospital stay
Diet - IDDSI-6
DVT Ppx - SCDs
GI Ppx - Lansoprazole 30 BID
Code Status - Full Code
Imaging:
Brain MRI on 04/11/2024: No MRI evidence for acute infarct. Bilateral mastoid effusions. Moderate age-related parenchymal atrophy. No masslike effect, midline shift, or extra-axial collection.
Anticipated Discharge: 24 - 48 hours
Subjective/Interval History
-
Date of Service: May 03, 2024
Met with patient at the side. He is doing well and in good spirits. Patient tolerating his lithium well. Patient remains off a one-to-one. Seen comfortably sitting at the edge of the bed eating his breakfast.
Objective Data
-
Labs:
Labs
05/03/24 06:08
Vital Signs:
Vital Signs
Temp Pulse Resp BP Pulse Ox
98.8 F 78 18 110/75 98
05/02/24 23:12 05/02/24 23:12 05/02/24 23:12 05/02/24 23:12 05/02/24 23:12
I&O
05/02/24 05/03/24 05/04/24
06:59 06:59 06:59
Intake Total 2159
Balance 2159
Review of Systems
-
History Source: Patient
Constitutional: Reports No Symptoms
EENT: Reports No Symptoms Reported
Respiratory: Reports No Symptoms
Cardiac: Reports No Symptoms
Abdomen/GI: Reports No Symptoms
Breast: Reports No Symptoms
Genitourinary: Reports No Symptoms
Musculoskeletal: Reports No Symptoms
Skin: Reports No Symptoms
Neuro: Reports No Symptoms
Endocrine: Reports No Symptoms
Hematologic / Lymphatic: Reports No Symptoms
Physical Exam
-
General: Well Developed, Well Nourished, No Apparent Distress and Obese
HEENT: Normocephalic, Atraumatic and Moist Mucous Membranes
Respiratory: Clear to Auscultation and Non Labored Respirations; Negative Rhonchi or Crackles
Cardiac: S1/S2; Negative Murmur, Rub or JVD
Breast: Deferred by me
GI: Soft, Nontender, Nondistended and Normal Bowel Sounds
Rectal: Deferred by Provider
Genito-urinary: Deferred by me
Musculoskeletal: No Clubbing, No Cyanosis and No Edema
Skin: Warm, Dry and Rash
Neuro: Awake, Alert, Oriented and AO x 3
Psych: Calm
[2024-05-03] MEDS: ELIQUIS 5 MG PO ×2 (07:52→19:41)
[2024-05-03] MEDS: ProAmatine 5 MG PO ×3 (07:52→17:01)
[2024-05-03] MEDS: ESKALITH ER (EXTENDED RELEASE) 450 MG PO ×2 (07:52→19:41)
[2024-05-03] MEDS: DESENEX/MITRAZOL/ZEASORB 1 APPLIC TOPICAL ×2 (07:52→20:00)
[2024-05-03] MEDS: SEROQUEL 100 MG PO ×2 (07:52→19:41)
[2024-05-03] MEDS: ALDACTONE 12.5 MG PO (07:52)
[2024-05-03] MEDS: FEOSOL 325 MG PO (07:52)
[2024-05-03] MEDS: NEURONTIN 300 MG PO ×3 (07:52→21:26)
[2024-05-03] MEDS: PROTONIX 40 MG PO ×2 (07:52→19:40)
[2024-05-03] MEDS: FOLVITE 1 MG PO (07:52)
[2024-05-03] MEDS: TOPROL XL 100 MG PO ×2 (07:52→19:41)
[2024-05-03] MEDS: FARXIGA 10 MG PO (07:52)
[2024-05-03 07:53] VITALS: BP 120/74
[2024-05-03 08:04] LABS: Lithium 0.6 mmol/L (0.6-1.2)
[2024-05-03 08:20] LABS: Hemoglobin 11.3 g/dL (13.0-18.0); Mean Corp Hgb Conc. 31.4 g/dL (33.0-37.0); Mean Corpuscular Hgb 26.5 pg (27.0-31.0); Mean Corpuscular Volume 84.3 fL (80.0-94.0); Mean Platelet Volume 9.8 fL (7.4-10.4); Platelet Count 246 10^3/uL (130-400); Red Blood Cell Count 4.27 10^6/uL (4.70-6.10); Red Cell Dist. Width 15.8 % (11.5-14.5); White Blood Cell Count 6.2 10^3/uL (4.8-10.8)
[2024-05-03 08:29] LABS: Blood Urea Nitrogen 10 mg/dl (9-20); Calcium 9.4 mg/dl (8.4-10.2); Carbon Dioxide 25 mmol/L (22-30); Chloride 104 mmol/L (98-107); Estimated Creatinine Clearance > 125 ml/min; Glucose 92 mg/dl (70-99); Potassium 4.2 mmol/L (3.5-5.1); Sodium 136 mmol/L (135-145); eGFR > 60.00
--- NOTE | 2024-05-03 09:16 | CM ---
[facility]
Patient off 1:[facility], [place] ordered
tt phsysician regarding re-order PM&R consult
Spoke with Alyce from [place], she will reach out to [facility]
Will need to obtain insurance auth once accepted/bed secured, Will need updated PT/OT notes
PLAN: Acute Rehab, pending acceptance/bed availability, will need ins auth
[2024-05-03 10:45] VITALS: BP 100/66; BP 115/79; PULSE 72; O2SAT 98
[2024-05-03 11:12] VITALS: BP 115/79
[2024-05-03 15:30] VITALS: BP 130/83
[2024-05-03 19:55] VITALS: BP 112/69
[2024-05-03 23:03] VITALS: BP 103/78
[2024-05-04 05:29] VITALS: BMI 32.5
--- NOTE | 2024-05-04 07:30 | W.PN.HOSP.TC ---
Addendum entered and electronically signed by Obie Arndt MD 05/04/24 11:25:
Seen and examined by me independently in collaboration with the medical practitioners.
Lab data and imaging data reviewed.
Addendum as below :
Patient is alert and oriented. No agitation or impulsivity noted. Is alert and oriented to place but easily gets confused about the details of his situation. He does seems to acknowledge that he is not able to retain information as before and it
may be best for him to go home as he thinks that he works better being alone.
He is easily redirectable.
Remains medically stable for discharge. Ongoing dispo efforts.
Original Note:
Today's Communication/Plan
-
Patient denied placement at [facility], [facility], and [place]. We continue to work to find placement for this patient.
Assessment / Plan
Assessment / Plan
Assessment/plan:
-Persistent altered mental status possibly due to Wernicke's encephalopathy secondary to long-term alcohol dependence: Stable
The patient has been getting thiamine and folate since his admission
Continue Seroquel 100 mg p.o. twice daily
Patient is no longer sedated and is extubated
MRI conducted on 04/11/2024 showed moderate age-related parenchymal atrophy. No MRI evidence for an acute infarct. Bilateral mastoid effusions. No mass effect, midline shift or extra-axial collection no abnormal signal intensity on
diffusion-weighted images.
Status unchanged from 04/13/2024
Haldol dosage was reduced to 1 mg IV every 8 hours as needed after recommendations from psychiatry. The patient is much more clear after this medication adjustment.
The patient's current mental status appears to be the patient's new baseline
Appreciate psychiatry recommendations- [place] carbonate increased to 900 mg daily �we will follow lithium levels -lithium level on 05/02/24 was 0.4 and subtherapeutic, lithium level on 05/03/2024 is 0.6 mmol/L which is within the lower end of the
therapeutic range.
-Alcohol use disorder with possible withdrawal seizure -stable
On 03/24/2024 the patient was seen with seizure-like activity before becoming unresponsive requiring ACLS
MSAS protocol
Continue thiamine and folic acid with Ativan as per protocol.
Phenobarbital taper completed.
Ammonia level less than 9
-Ambulatory Dysfunction: Monitoring
Patient is much clearer on 04/14/2024 but remains unable to be steady on his feet.
PT OT evaluation recommends that the patient receive acute rehab upon discharge.
Appreciate PMNR evaluation -patient would be a candidate for [facility] at [place]. The patient would need to be off of restraints for and not on a one-to-one for at least 24 hours prior to discharge.
-Sepsis secondary to acute Influenza A Infection: Resolved
Nasal swab on 04/18/2024 positive for influenza A
White blood cells 4.0 on 04/19/2024
Blood pressure 99/64 on 04/19/2024
Pulse 101 on 04/18 at 19: 26
Temperature 101.2 on 04/18 at 19: 26
Elevated alkaline phosphatase at 140
Tamiflu 75 mg p.o. twice daily started for 5 days - Completed
-Hyperkalemia: Resolved
Potassium is 5.3 on 04/13/2024
The slight elevation may be due to lysis during blood draw -will recheck on next draw
Potassium 4.5 on 04/19/2024
-Persistent atrial fibrillation: Monitoring
Patient is on Toprol-XL 100 mg twice daily
Patient currently on digoxin 250 mcg -check digoxin levels on the day of discharge and again 1 month after discharge
Cardiology restarted benazepril on 04/12/2024
Cardiology recommends avoiding usage calcium channel blockers if possible given reduced left ventricular ejection fraction
Sacubitril/valsartan 24 mg / 26 mg twice daily started
Patient is still scheduled for PVI on May 2024
Heart rate is better controlled�stop digoxin -digoxin level ordered- WNL
Patient systolic blood pressure was in the 80s on 04/23/2024�midodrine 2.5 mg 3 times daily added -this has been increased to midodrine 5 mg p.o. 3 times daily on 12/23/2024
-Anemia, multifactorial with iron deficiency: Stable
On a PPI with lansoprazole
Persistently low hemoglobin around 9 despite no obvious signs of bleed
Iron, iron saturation, and ferritin were low on prior labs. Continue oral iron
-Essential hypertension: Stable
Continue metoprolol succinate 100 mg p.o. twice daily
-Dysphagia: Stable
Cleared for IDDSI�6 diet by speech therapy
-Tracheitis: Stable
Tracheal aspirate culture sample grew MSSA
Finished cefazolin course
-Acute on chronic HFrEF: Stable
Prior echo shows ejection fraction of 30 to 35% with global hypokinesis and small pericardial effusion
Continue Farxiga/Entresto/Toprol-XL with holding parameters adjusted to systolic blood pressure < 90
Appreciate cardiology recommendations. They have set up an outpatient follow-up.
May resume Lasix after discontinuing spironolactone 12.5 mg p.o. daily
-V. tach cardiac arrest with CPR: Monitoring
Chest x-ray did not show any osseous abnormality
Weaned off pressure support
Head CT shows atrophy and EEG showed diffuse cortical dysfunction without focal abnormality and no seizure activity
Patient is extubated and off sedation
-Sepsis, secondary to COVID-19 infection: Stable
Patient was febrile for several days without an elevated white count. Initially this was thought to be a propofol reaction versus a bacterial infection however repeat COVID test on 03/28/2024 was positive. Patient was hypothermic at 96.6 �F,
tachycardic at 102 suggesting that COVID-19 was the causative factor.
Patient has completed Zosyn. Finished 1 dose of Decadron and 5 days of remdesivir
-Superficial venous thrombus: Monitoring
Swelling in left arm near peripheral line
Ultrasound confirmed left basilic vein thrombosis�line removed�will observe
-Hyponatremia: Resolved
Assess volume status and replete as needed
-Hyperbilirubinemia: Resolved
A possible component of hemolysis versus Gilbert's disease.
Continue to monitor
-Transaminitis likely secondary due to alcoholic fatty liver with possible compounding shock liver: Resolved
Patient had an elevated AST and ALT on admission with a ratio of 2:1
Has a history of alcohol use and obesity
-Lactic acidemia: Resolved
Was elevated immediately following his cardiac arrest. Has come back down.
-Asthma: Stable
Continue to monitor
-Bipolar disorder: Stable
Patient's mother states that he used to be on Lexapro but stopped on his own due to weight gain. Appreciate psychiatry consult. Psychiatry is under the impression that the patient's encephalopathy is due to a lot more than alcohol withdrawal.
Note that he had atrophy on his CAT scan well before he came to [facility] and notes numerous comorbidities including cardiac arrest which they believe are contributing to his cognitive decline. They recommended staying away from sedating
meds as much as possible. They also noted to be aware of IV Haldol usage as the patient had a prolonged QTc earlier in the admission.
-Obesity:
Patient's BMI was greater than 30 on admission and remains greater than 30 throughout this hospital stay
Diet - IDDSI-6
DVT Ppx - SCDs
GI Ppx - Lansoprazole 30 BID
Code Status - Full Code
Imaging:
Brain MRI on 04/11/2024: No MRI evidence for acute infarct. Bilateral mastoid effusions. Moderate age-related parenchymal atrophy. No masslike effect, midline shift, or extra-axial collection.
Anticipated Discharge: 24 - 48 hours
Subjective/Interval History
-
Date of Service: May 04, 2024
Met with patient at the bedside. He is doing well and offers no complaints at the present time. Seen eating gummy bears and playing on his [employer] hand-held.
Objective Data
-
Labs:
Labs
05/03/24 06:08
05/03/24 07:17
Vital Signs:
Vital Signs
Temp Pulse Resp BP Pulse Ox
98.2 F 77 18 106/64 99
05/04/24 07:54 05/04/24 07:54 05/04/24 07:54 05/04/24 07:54 05/04/24 07:54
I&O
05/03/24 05/04/24 05/05/24
06:59 06:59 06:59
Intake Total 1800 / 1800 2099
Balance 1800 / 1800 2099
Review of Systems
-
History Source: Patient
Constitutional: Reports No Symptoms
EENT: Reports No Symptoms Reported
Respiratory: Reports No Symptoms
Cardiac: Reports No Symptoms
Abdomen/GI: Reports No Symptoms
Breast: Reports No Symptoms
Genitourinary: Reports No Symptoms
Musculoskeletal: Reports No Symptoms
Skin: Reports No Symptoms
Neuro: Reports No Symptoms
Endocrine: Reports No Symptoms
Hematologic / Lymphatic: Reports No Symptoms
Physical Exam
-
General: Well Developed, Well Nourished, No Apparent Distress and Obese
HEENT: Normocephalic and Atraumatic
Respiratory: Clear to Auscultation
Cardiac: S1/S2; Negative Murmur or Rub
Breast: Deferred by me
GI: Soft, Nontender, Nondistended and Normal Bowel Sounds
Rectal: Deferred by Provider
Genito-urinary: Deferred by me
Musculoskeletal: No Clubbing, No Cyanosis and No Edema
Skin: Warm and Dry; Negative Rash or Ulcers
Neuro: Awake, Alert, Oriented and AO x 3
Psych: Calm
[2024-05-04] MEDS: ESKALITH ER (EXTENDED RELEASE) 450 MG PO ×2 (07:52→20:37)
[2024-05-04] MEDS: ALDACTONE 12.5 MG PO (07:53)
[2024-05-04] MEDS: PROTONIX 40 MG PO ×2 (07:53→20:38)
[2024-05-04] MEDS: DESENEX/MITRAZOL/ZEASORB 1 APPLIC TOPICAL (07:53)
[2024-05-04] MEDS: NEURONTIN 300 MG PO ×3 (07:53→20:38)
[2024-05-04] MEDS: FARXIGA 10 MG PO (07:53)
[2024-05-04] MEDS: SEROQUEL 100 MG PO ×2 (07:53→20:37)
[2024-05-04] MEDS: FOLVITE 1 MG PO (07:53)
[2024-05-04] MEDS: ProAmatine 5 MG PO ×3 (07:53→17:04)
[2024-05-04] MEDS: FEOSOL 325 MG PO (07:53)
[2024-05-04] MEDS: TOPROL XL 100 MG PO ×2 (07:53→20:37)
[2024-05-04] MEDS: ELIQUIS 5 MG PO ×2 (07:53→20:37)
[2024-05-04 07:54] VITALS: BP 106/64
--- NOTE | 2024-05-04 11:55 | W.PN.UPDATE ---
Update Note
Progress Note Update
Patient seen at bedside, chart reviewed, discussed with staff. Overall, patient is doing fairly well. He has not been agitated or aggressive. He remains impulsive at times. Intermittently confused. When asked where he was, he answered 'at the
school' and then corrected himself to say the hospital. He tells me he is eager to go home. He tells me about his little sister and that her birthday is coming up. Offers no complaints at this time.
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 Bipolar disorder by history - Continue Seroquel 100mg BID, gabapentin 300mg TID, and lithium 450mg BID. [place] level on 05/03
therapeutic at 0.6. Would recheck in a few days. Efforts continue for a safe discharge plan.
--- NOTE | 2024-05-04 15:18 | CM ---
Call from Sj at [facility] - states patient does not qualify for acute rehab & unable to accept.
Also sent referral out to [facility] acute rehab
CHLOÉ spoke with Suzanna Matamoros - stated unable to accept at [facility]'s (Suzy Matamoros)
Spoke with mom Lesly regarding placement issues. She states she will now consider outpatient [facility]. She also inquired about [facility] outpatient therapy for cognition. CHLOÉ called & left message with outpatient dept.
PLAN: continue efforts for placement vs. home with outpatient therapy
[2024-05-04 15:40] VITALS: BP 124/74
[2024-05-04] MEDS: DESENEX/MITRAZOL/ZEASORB TOPICAL (20:38)
[2024-05-04 23:00] VITALS: BP 114/76
[2024-05-05 05:30] VITALS: BMI 32.6
[2024-05-05 07:15] VITALS: BP 118/67
--- NOTE | 2024-05-05 07:30 | W.PN.HOSP.TC ---
Addendum entered and electronically signed by Obie Arndt MD 05/05/24 16:08:
Seen and examined by me independently in collaboration with the medical records supervisor.
Lab data and imaging data reviewed.
Addendum as below :
Ongoing dispo efforts
Medically stable for DC
Original Note:
Today's Communication/Plan
-
Patient remains medically stable and appropriate for discharge. Ongoing efforts continue for a safe discharge plan.
Assessment / Plan
Assessment / Plan
Assessment/plan:
-Persistent altered mental status possibly due to Wernicke's encephalopathy secondary to long-term alcohol dependence: Stable
The patient has been getting thiamine and folate since his admission
Continue Seroquel 100 mg p.o. twice daily
Patient is no longer sedated and is extubated
MRI conducted on 04/11/2024 showed moderate age-related parenchymal atrophy. No MRI evidence for an acute infarct. Bilateral mastoid effusions. No mass effect, midline shift or extra-axial collection no abnormal signal intensity on
diffusion-weighted images.
Status unchanged from 04/13/2024
Haldol dosage was reduced to 1 mg IV every 8 hours as needed after recommendations from psychiatry. The patient is much more clear after this medication adjustment.
The patient's current mental status appears to be the patient's new baseline
Appreciate psychiatry recommendations- [place] carbonate increased to 900 mg daily �we will follow lithium levels -lithium level on 05/02/24 was 0.4 and subtherapeutic, lithium level on 05/03/2024 is 0.6 mmol/L which is within the lower end of the
therapeutic range.
-Alcohol use disorder with possible withdrawal seizure -stable
On 03/24/2024 the patient was seen with seizure-like activity before becoming unresponsive requiring ACLS
MSAS protocol
Continue thiamine and folic acid with Ativan as per protocol.
Phenobarbital taper completed.
Ammonia level less than 9
-Ambulatory Dysfunction: Resolved
Patient is much clearer on 04/14/2024 but remains unable to be steady on his feet.
PT OT evaluation recommends that the patient receive acute rehab upon discharge.
Patient able to ambulate independently on 05/05/2024
-Sepsis secondary to acute Influenza A Infection: Resolved
Nasal swab on 04/18/2024 positive for influenza A
White blood cells 4.0 on 04/19/2024
Blood pressure 99/64 on 04/19/2024
Pulse 101 on 04/18 at 19: 26
Temperature 101.2 on 04/18 at 19: 26
Elevated alkaline phosphatase at 140
Tamiflu 75 mg p.o. twice daily started for 5 days - Completed
-Hyperkalemia: Resolved
Potassium is 5.3 on 04/13/2024
The slight elevation may be due to lysis during blood draw -will recheck on next draw
Potassium 4.5 on 04/19/2024
-Persistent atrial fibrillation: Monitoring
Patient is on Toprol-XL 100 mg twice daily
Patient currently on digoxin 250 mcg -check digoxin levels on the day of discharge and again 1 month after discharge
Cardiology restarted benazepril on 04/12/2024
Cardiology recommends avoiding usage calcium channel blockers if possible given reduced left ventricular ejection fraction
Sacubitril/valsartan 24 mg / 26 mg twice daily started
Patient is still scheduled for PVI on May 2024
Heart rate is better controlled�stop digoxin -digoxin level ordered- WNL
Patient systolic blood pressure was in the 80s on 04/23/2024�midodrine 2.5 mg 3 times daily added -this has been increased to midodrine 5 mg p.o. 3 times daily on 12/23/2024
-Anemia, multifactorial with iron deficiency: Stable
On a PPI with lansoprazole
Persistently low hemoglobin around 9 despite no obvious signs of bleed
Iron, iron saturation, and ferritin were low on prior labs. Continue oral iron
-Essential hypertension: Stable
Continue metoprolol succinate 100 mg p.o. twice daily
-Dysphagia: Stable
Cleared for IDDSI�6 diet by speech therapy
-Tracheitis: Stable
Tracheal aspirate culture sample grew MSSA
Finished cefazolin course
-Acute on chronic HFrEF: Stable
Prior echo shows ejection fraction of 30 to 35% with global hypokinesis and small pericardial effusion
Continue Farxiga/Entresto/Toprol-XL with holding parameters adjusted to systolic blood pressure < 90
Appreciate cardiology recommendations. They have set up an outpatient follow-up.
May resume Lasix after discontinuing spironolactone 12.5 mg p.o. daily
-V. tach cardiac arrest with CPR: Monitoring
Chest x-ray did not show any osseous abnormality
Weaned off pressure support
Head CT shows atrophy and EEG showed diffuse cortical dysfunction without focal abnormality and no seizure activity
Patient is extubated and off sedation
-Sepsis, secondary to COVID-19 infection: Stable
Patient was febrile for several days without an elevated white count. Initially this was thought to be a propofol reaction versus a bacterial infection however repeat COVID test on 03/28/2024 was positive. Patient was hypothermic at 96.6 �F,
tachycardic at 102 suggesting that COVID-19 was the causative factor.
Patient has completed Zosyn. Finished 1 dose of Decadron and 5 days of remdesivir
-Superficial venous thrombus: Monitoring
Swelling in left arm near peripheral line
Ultrasound confirmed left basilic vein thrombosis�line removed�will observe
-Hyponatremia: Resolved
Assess volume status and replete as needed
-Hyperbilirubinemia: Resolved
A possible component of hemolysis versus Gilbert's disease.
Continue to monitor
-Transaminitis likely secondary due to alcoholic fatty liver with possible compounding shock liver: Resolved
Patient had an elevated AST and ALT on admission with a ratio of 2:1
Has a history of alcohol use and obesity
-Lactic acidemia: Resolved
Was elevated immediately following his cardiac arrest. Has come back down.
-Asthma: Stable
Continue to monitor
-Bipolar disorder: Stable
Patient's mother states that he used to be on Lexapro but stopped on his own due to weight gain. Appreciate psychiatry consult. Psychiatry is under the impression that the patient's encephalopathy is due to a lot more than alcohol withdrawal.
Note that he had atrophy on his CAT scan well before he came to [facility] and notes numerous comorbidities including cardiac arrest which they believe are contributing to his cognitive decline. They recommended staying away from sedating
meds as much as possible. They also noted to be aware of IV Haldol usage as the patient had a prolonged QTc earlier in the admission.
-Obesity:
Patient's BMI was greater than 30 on admission and remains greater than 30 throughout this hospital stay
Diet - IDDSI-6
DVT Ppx - SCDs
GI Ppx - Lansoprazole 30 BID
Code Status - Full Code
Imaging:
Brain MRI on 04/11/2024: No MRI evidence for acute infarct. Bilateral mastoid effusions. Moderate age-related parenchymal atrophy. No masslike effect, midline shift, or extra-axial collection.
Anticipated Discharge: > 48 hours
Subjective/Interval History
-
Date of Service: May 05, 2024
Met with patient at the bedside. He is calm and pleasant in discussion and offers no complaints. He is oriented to self but struggles with time. Seen sitting upright in his bed eating his breakfast.
Objective Data
-
Labs:
Laboratory Results
05/05/24
07:54
WBC 7.8
Hgb 11.8 L
Hct 37.8 L
Plt Count 278
Vital Signs:
Vital Signs
Temp Pulse Resp BP Pulse Ox
97.2 F 95 16 118/67 95
05/05/24 07:15 05/05/24 08:19 05/05/24 07:15 05/05/24 08:19 05/05/24 07:15
I&O
03/04/25 03/05/25 03/06/25
06:59 06:59 06:59
Intake Total 2099
Balance 2099
Review of Systems
-
History Source: Patient
Constitutional: Reports No Symptoms
EENT: Reports No Symptoms Reported
Respiratory: Reports No Symptoms
Cardiac: Reports No Symptoms
Abdomen/GI: Reports No Symptoms
Breast: Reports No Symptoms
Genitourinary: Reports No Symptoms
Musculoskeletal: Reports No Symptoms
Skin: Reports No Symptoms
Neuro: Reports No Symptoms
Endocrine: Reports No Symptoms
Hematologic / Lymphatic: Reports No Symptoms
Allergy / Immunology: Reports No Symptoms
Physical Exam
-
General: Well Developed, Well Nourished, No Apparent Distress, Comfortable and Obese
HEENT: Normocephalic, Atraumatic and Moist Mucous Membranes
Respiratory: Clear to Auscultation and Non Labored Respirations; Negative Wheezes, Rales, Rhonchi or Crackles
Cardiac: S1/S2; Negative Murmur, Rub or JVD
Breast: Deferred by me
GI: Soft, Nontender, Nondistended and Normal Bowel Sounds
Rectal: Deferred by Provider
Genito-urinary: Deferred by me
Musculoskeletal: No Clubbing, No Cyanosis and No Edema
Skin: Warm and Dry; Negative Rash, Ulcers or Lesions
Neuro: Awake, Alert, Oriented and AO x 3
Psych: Calm
[2024-05-05] MEDS: FARXIGA 10 MG PO (08:18)
[2024-05-05] MEDS: ProAmatine 5 MG PO ×3 (08:18→17:02)
[2024-05-05] MEDS: NEURONTIN 300 MG PO ×3 (08:18→20:54)
[2024-05-05] MEDS: PROTONIX 40 MG PO ×2 (08:18→20:55)
[2024-05-05] MEDS: SEROQUEL 100 MG PO ×2 (08:18→20:54)
[2024-05-05] MEDS: FEOSOL 325 MG PO (08:18)
[2024-05-05] MEDS: ELIQUIS 5 MG PO ×2 (08:18→20:55)
[2024-05-05] MEDS: TOPROL XL 100 MG PO ×2 (08:18→20:54)
[2024-05-05 08:19] LABS: Hematocrit 37.8 % (39.0-52.0); Hemoglobin 11.8 g/dL (13.0-18.0); Mean Corp Hgb Conc. 31.2 g/dL (33.0-37.0); Mean Corpuscular Hgb 26.8 pg (27.0-31.0); Mean Corpuscular Volume 85.7 fL (80.0-94.0); Mean Platelet Volume 9.9 fL (7.4-10.4); Platelet Count 278 10^3/uL (130-400); Red Blood Cell Count 4.41 10^6/uL (4.70-6.10); Red Cell Dist. Width 15.9 % (11.5-14.5); White Blood Cell Count 7.8 10^3/uL (4.8-10.8)
[2024-05-05] MEDS: ALDACTONE 12.5 MG PO (08:19)
[2024-05-05] MEDS: ESKALITH ER (EXTENDED RELEASE) 450 MG PO ×2 (08:19→20:55)
[2024-05-05] MEDS: FOLVITE 1 MG PO (08:19)
[2024-05-05] MEDS: DESENEX/MITRAZOL/ZEASORB 1 APPLIC TOPICAL ×2 (08:19→20:56)
[2024-05-05 09:12] LABS: Lithium 0.5 mmol/L (0.6-1.2)
--- NOTE | 2024-05-05 09:18 | CM ---
Received message from mom Lesly Wong
CM called her back she stated she cannot ike patient home.
Discussion regarding placement, CM placed call to [facility] in [place] (Inpatient & outpatient) ([phone]) and left message for Mariah Dunn record center coordinator
Await call back regarding information on [facility]
--- NOTE | 2024-05-05 12:23 | W.PN.UPDATE ---
Addendum entered and electronically signed by Vanita Sarmiento MD 05/05/24 16:39:
came back to see patient hoping to talk to his mom but she had left as per nursing. i thought i was having a logical conversation about his mother's visit with him then he tells me he does not know if she came 'maybe i was sleeping'. he further
told me he went 'Home for lunch'. clearly still confused even though able to keep conversation flowing for a short period making it seem that he is relatively okay. what is clearly better however is his irritability. in the past if you questioned
him he got very irritated and did not hide it. he is at this point completely off one to one and does not seem to need that degree of supervision.
Original Note:
Update Note
Progress Note Update
patient seen chart reviewed. discussed with nursing and with dr allison. mr chao does really seem better since lithium started. he is less irritable. he is more able to carry on a conversation. he is unhappy to be here still and wants to go
home but mother has said no. all efforts to place him in a rehab have come to [place]. he asked me to come talk to his mom who is visiting this afternoon which i will do. we did attempt to call her but no answer. lithium level is o.6. this may be
the low end of the therapeutic range but one does not go by numbers alone. if it is effective there is no need to push the level up as it will just cause side effects and then he will not want to take it. o.6 is perfectly acceptable if symptoms are
in remit. if patient could remain sober he may fare reasonably well with out pt treatment of his brain injury. another option if he continues to improve would be alcohol rehab which certainly would provide important treatment as well. no changes
made in his medications.
[2024-05-05 15:15] VITALS: BP 118/67
--- NOTE | 2024-05-05 17:28 | PTCARENOTE ---
Patient AAO to self only, confused conversation, but calm and cooperative with care throughout shift. Patient ambulatory in room throughout shift, resting in bed, call farley within reach.
[2024-05-05 23:00] VITALS: BP 103/69
[2024-05-06 06:00] VITALS: BMI 32.7
--- NOTE | 2024-05-06 06:44 | PTCARENOTE ---
Patient slept all night, no concerns or outburst. He remains pleasant but still confused. call farley in reach, ambulates in room independently.
[2024-05-06 07:10] VITALS: BP 126/72
--- NOTE | 2024-05-06 07:30 | W.PN.HOSP.TC ---
Today's Communication/Plan
-
The patient remains medically stable for discharge. Ongoing disposition efforts continue.
Assessment / Plan
Assessment / Plan
Assessment/plan:
-Persistent altered mental status possibly due to Wernicke's encephalopathy secondary to long-term alcohol dependence: Stable
The patient has been getting thiamine and folate since his admission
Continue Seroquel 100 mg p.o. twice daily
Patient is no longer sedated and is extubated
MRI conducted on 04/11/2024 showed moderate age-related parenchymal atrophy. No MRI evidence for an acute infarct. Bilateral mastoid effusions. No mass effect, midline shift or extra-axial collection no abnormal signal intensity on
diffusion-weighted images.
Status unchanged from 04/13/2024
Haldol dosage was reduced to 1 mg IV every 8 hours as needed after recommendations from psychiatry. The patient is much more clear after this medication adjustment.
The patient's current mental status appears to be the patient's new baseline
Appreciate psychiatry recommendations- [place] carbonate increased to 900 mg daily �we will follow lithium levels -lithium level on 05/02/24 was 0.4 and subtherapeutic, lithium level on 05/03/2024 is 0.6 mmol/L which is within the lower end of the
therapeutic range.
-Alcohol use disorder with possible withdrawal seizure -stable
On 03/24/2024 the patient was seen with seizure-like activity before becoming unresponsive requiring ACLS
MSAS protocol
Continue thiamine and folic acid with Ativan as per protocol.
Phenobarbital taper completed.
Ammonia level less than 9
-Ambulatory Dysfunction: Resolved
Patient is much clearer on 04/14/2024 but remains unable to be steady on his feet.
PT OT evaluation recommends that the patient receive acute rehab upon discharge.
Patient able to ambulate independently on 05/05/2024
-Sepsis secondary to acute Influenza A Infection: Resolved
Nasal swab on 04/18/2024 positive for influenza A
White blood cells 4.0 on 04/19/2024
Blood pressure 99/64 on 04/19/2024
Pulse 101 on 04/18 at 19: 26
Temperature 101.2 on 04/18 at 19: 26
Elevated alkaline phosphatase at 140
Tamiflu 75 mg p.o. twice daily started for 5 days - Completed
-Hyperkalemia: Resolved
Potassium is 5.3 on 04/13/2024
The slight elevation may be due to lysis during blood draw -will recheck on next draw
Potassium 4.5 on 04/19/2024
-Persistent atrial fibrillation: Monitoring
Patient is on Toprol-XL 100 mg twice daily
Patient currently on digoxin 250 mcg -check digoxin levels on the day of discharge and again 1 month after discharge
Cardiology restarted benazepril on 04/12/2024
Cardiology recommends avoiding usage calcium channel blockers if possible given reduced left ventricular ejection fraction
Sacubitril/valsartan 24 mg / 26 mg twice daily started
Patient is still scheduled for PVI on May 2024
Heart rate is better controlled�stop digoxin -digoxin level ordered- WNL
Patient systolic blood pressure was in the 80s on 04/23/2024�midodrine 2.5 mg 3 times daily added -this has been increased to midodrine 5 mg p.o. 3 times daily on 12/23/2024
-Anemia, multifactorial with iron deficiency: Stable
On a PPI with lansoprazole
Persistently low hemoglobin around 9 despite no obvious signs of bleed
Iron, iron saturation, and ferritin were low on prior labs. Continue oral iron
-Essential hypertension: Stable
Continue metoprolol succinate 100 mg p.o. twice daily
-Dysphagia: Stable
Cleared for IDDSI�6 diet by speech therapy
-Tracheitis: Stable
Tracheal aspirate culture sample grew MSSA
Finished cefazolin course
-Acute on chronic HFrEF: Stable
Prior echo shows ejection fraction of 30 to 35% with global hypokinesis and small pericardial effusion
Continue Farxiga/Entresto/Toprol-XL with holding parameters adjusted to systolic blood pressure < 90
Appreciate cardiology recommendations. They have set up an outpatient follow-up.
May resume Lasix after discontinuing spironolactone 12.5 mg p.o. daily
-V. tach cardiac arrest with CPR: Monitoring
Chest x-ray did not show any osseous abnormality
Weaned off pressure support
Head CT shows atrophy and EEG showed diffuse cortical dysfunction without focal abnormality and no seizure activity
Patient is extubated and off sedation
-Sepsis, secondary to COVID-19 infection: Stable
Patient was febrile for several days without an elevated white count. Initially this was thought to be a propofol reaction versus a bacterial infection however repeat COVID test on 03/28/2024 was positive. Patient was hypothermic at 96.6 �F,
tachycardic at 102 suggesting that COVID-19 was the causative factor.
Patient has completed Zosyn. Finished 1 dose of Decadron and 5 days of remdesivir
-Superficial venous thrombus: Monitoring
Swelling in left arm near peripheral line
Ultrasound confirmed left basilic vein thrombosis�line removed�will observe
-Hyponatremia: Resolved
Assess volume status and replete as needed
-Hyperbilirubinemia: Resolved
A possible component of hemolysis versus Gilbert's disease.
Continue to monitor
-Transaminitis likely secondary due to alcoholic fatty liver with possible compounding shock liver: Resolved
Patient had an elevated AST and ALT on admission with a ratio of 2:1
Has a history of alcohol use and obesity
-Lactic acidemia: Resolved
Was elevated immediately following his cardiac arrest. Has come back down.
-Asthma: Stable
Continue to monitor
-Bipolar disorder: Stable
Patient's mother states that he used to be on Lexapro but stopped on his own due to weight gain. Appreciate psychiatry consult. Psychiatry is under the impression that the patient's encephalopathy is due to a lot more than alcohol withdrawal.
Note that he had atrophy on his CAT scan well before he came to [facility] and notes numerous comorbidities including cardiac arrest which they believe are contributing to his cognitive decline. They recommended staying away from sedating
meds as much as possible. They also noted to be aware of IV Haldol usage as the patient had a prolonged QTc earlier in the admission.
-Obesity:
Patient's BMI was greater than 30 on admission and remains greater than 30 throughout this hospital stay
Diet - IDDSI-6
DVT Ppx - SCDs
GI Ppx - Lansoprazole 30 BID
Code Status - Full Code
Imaging:
Brain MRI on 04/11/2024: No MRI evidence for acute infarct. Bilateral mastoid effusions. Moderate age-related parenchymal atrophy. No masslike effect, midline shift, or extra-axial collection.
Anticipated Discharge: > 48 hours
Subjective/Interval History
-
Date of Service: May 06, 2024
Met with patient at the bedside. He is calm and pleasant in discussion. He is seen eating a pepperoni pizza that his mother brought him left in the room. He offered me a slice and I declined. Oriented to self, not place or time.
Objective Data
-
Labs:
Labs
05/05/24 07:54
Vital Signs:
Vital Signs
Temp Pulse Resp BP Pulse Ox
97.8 F 87 16 103/69 94
05/05/24 23:00 05/05/24 23:00 05/05/24 23:00 05/05/24 23:00 05/05/24 23:00
I&O
05/05/24 05/06/24 05/07/24
06:59 06:59 06:59
Intake Total 1679 / 0 2149
Balance 0 / 0 2149
Review of Systems
-
History Source: Patient
All other systems: Reviewed and negative
Constitutional: Reports No Symptoms
EENT: Reports No Symptoms Reported
Respiratory: Reports No Symptoms
Cardiac: Reports No Symptoms
Abdomen/GI: Reports No Symptoms
Breast: Reports No Symptoms
Genitourinary: Reports No Symptoms
Musculoskeletal: Reports No Symptoms
Skin: Reports No Symptoms
Neuro: Reports No Symptoms
Endocrine: Reports No Symptoms
Physical Exam
-
General: Well Developed, Well Nourished and No Apparent Distress
HEENT: Normocephalic, Atraumatic and Moist Mucous Membranes
Respiratory: Clear to Auscultation; Negative Wheezes, Rales, Rhonchi or Crackles
Cardiac: S1/S2; Negative Murmur or Rub
Breast: Deferred by me
GI: Soft, Nontender, Nondistended and Normal Bowel Sounds
Rectal: Deferred by Provider
Genito-urinary: Deferred by me
Musculoskeletal: No Clubbing, No Cyanosis and No Edema
Skin: Warm and Dry; Negative Rash or Ulcers
Neuro: Awake, Alert, Oriented and AO x 3
Psych: Calm
[2024-05-06] MEDS: PROTONIX 40 MG PO ×2 (08:22→20:04)
[2024-05-06] MEDS: FARXIGA 10 MG PO (08:22)
[2024-05-06] MEDS: ProAmatine 5 MG PO ×3 (08:23→17:19)
[2024-05-06] MEDS: FEOSOL 325 MG PO (08:23)
[2024-05-06] MEDS: ELIQUIS 5 MG PO ×2 (08:23→20:04)
[2024-05-06] MEDS: ESKALITH ER (EXTENDED RELEASE) 450 MG PO ×2 (08:23→20:04)
[2024-05-06] MEDS: ALDACTONE 12.5 MG PO (08:23)
[2024-05-06] MEDS: NEURONTIN 300 MG PO ×3 (08:23→20:04)
[2024-05-06] MEDS: SEROQUEL 100 MG PO ×2 (08:24→20:04)
[2024-05-06] MEDS: TOPROL XL 100 MG PO ×2 (08:24→20:05)
[2024-05-06] MEDS: FOLVITE 1 MG PO (08:24)
[2024-05-06] MEDS: DESENEX/MITRAZOL/ZEASORB 1 APPLIC TOPICAL ×2 (08:24→20:06)
--- NOTE | 2024-05-06 13:33 | W.PN.UPDATE ---
Update Note
Progress Note Update
Seen and examined by me independently in collaboration with the medical aide.
Lab data and imaging data reviewed.
Addendum as below :
Medically stable for discharge.
Ongoing disposition efforts.
--- NOTE | 2024-05-06 14:45 | CM ---
TC to [place] [facility] [phone] with locations in [facility], and [place].
Left VM for Екатерина, spareribs trimmer, re residential rehab program details, admissions criteria, insurance, etc. await TCB.
Website: [email or web address].
[2024-05-06 15:00] VITALS: BP 131/73
--- NOTE | 2024-05-06 15:07 | CM ---
Addendum entered by Keeley Beasley 05/06/24 16:23:
[facility] who stated she will review referral in [facility] & get back to
[facility]
Original Note:
CAll from Mariah Dunn from [facility]
She states they do not have an inpatient program
PLAN: Continue efforts for placement
--- NOTE | 2024-05-06 15:25 | W.PN.UPDATE ---
Update Note
Progress Note Update
patient seen chart reviewed. spoke with mother at bedside and nursing. patient is much the same cognitively however i hasten to add he is better since lithium started in that he is less irritable and much calmer. disposition remains a problem. mom
is very on point as she states she cannot be there all the time and she fears he could burn the house down or flood her home which is not beyond the realm of possibility given his cognitive function. we looked up again different agencies locally
that could be considered although many have turned him down. programs we found that might be appropriate include [facility] ( i think they turned him down) [facility] and a program called [facility]. mom was
waiting to meet with cm. patient really is in need of comprehensive brain injury rehab at this point.suggested to sister whom i spoke to on the phone and who was in the dollar store at the time to pickling solution maker some word searches and [employer] books for
him. also suggested to mom that if she is here to engage in some games eg cards which will stimulate his brain. no changes made in his meds. lithium level o.5 in 3/5 no ill effects though this is on the low side it is my impression that his mood
is no longer labile and i would not push it up at this point. will follow
--- NOTE | 2024-05-06 17:00 | PTCARENOTE ---
Patient calm, pleasant and cooperative throughout majority of shift, period of restlessness after mother left in afternoon where patient was found packing up belongings in room and stating he is 'going home.' Patient able to be redirected by talking
on phone with sister, sister at bedside visiting patient.
[2024-05-06] MEDS: TYLENOL 650 MG PO (20:09)
[2024-05-06 23:12] VITALS: BP 103/63
--- NOTE | 2024-05-07 07:30 | W.PN.HOSP.TC ---
Addendum entered and electronically signed by Obie Arndt MD 05/07/24 13:42:
Seen and examined by me independently in collaboration with the medical transcriber.
Lab data and imaging data reviewed.
Addendum as below :
Remains medically stable for discharge. Ongoing disposition efforts.
Original Note:
Today's Communication/Plan
-
Patient remains medically stable. Discharge planning ongoing and once adequate placement is found the patient can be discharged. Will continue to follow lithium labs.
Assessment / Plan
Assessment / Plan
Assessment/plan:
-Persistent altered mental status possibly due to Wernicke's encephalopathy secondary to long-term alcohol dependence: Stable
The patient has been getting thiamine and folate since his admission
Continue Seroquel 100 mg p.o. twice daily
Patient is no longer sedated and is extubated
MRI conducted on 04/11/2024 showed moderate age-related parenchymal atrophy. No MRI evidence for an acute infarct. Bilateral mastoid effusions. No mass effect, midline shift or extra-axial collection no abnormal signal intensity on
diffusion-weighted images.
Status unchanged from 04/13/2024
Haldol dosage was reduced to 1 mg IV every 8 hours as needed after recommendations from psychiatry. The patient is much more clear after this medication adjustment.
The patient's current mental status appears to be the patient's new baseline
Appreciate psychiatry recommendations- [place] carbonate increased to 900 mg daily �we will follow lithium levels -lithium level on 05/02/24 was 0.4 and subtherapeutic, lithium level on 05/03/2024 is 0.6 mmol/L which is within the lower end of the
therapeutic range.
-Alcohol use disorder with possible withdrawal seizure -stable
On 03/24/2024 the patient was seen with seizure-like activity before becoming unresponsive requiring ACLS
MSAS protocol
Continue thiamine and folic acid with Ativan as per protocol.
Phenobarbital taper completed.
Ammonia level less than 9
-Ambulatory Dysfunction: Resolved
Patient is much clearer on 04/14/2024 but remains unable to be steady on his feet.
PT OT evaluation recommends that the patient receive acute rehab upon discharge.
Patient able to ambulate independently on 05/05/2024
-Sepsis secondary to acute Influenza A Infection: Resolved
Nasal swab on 04/18/2024 positive for influenza A
White blood cells 4.0 on 04/19/2024
Blood pressure 99/64 on 04/19/2024
Pulse 101 on 04/18 at 19: 26
Temperature 101.2 on 04/18 at 19: 26
Elevated alkaline phosphatase at 140
Tamiflu 75 mg p.o. twice daily started for 5 days - Completed
-Hyperkalemia: Resolved
Potassium is 5.3 on 04/13/2024
The slight elevation may be due to lysis during blood draw -will recheck on next draw
Potassium 4.5 on 04/19/2024
-Persistent atrial fibrillation: Monitoring
Patient is on Toprol-XL 100 mg twice daily
Patient currently on digoxin 250 mcg -check digoxin levels on the day of discharge and again 1 month after discharge
Cardiology restarted benazepril on 04/12/2024
Cardiology recommends avoiding usage calcium channel blockers if possible given reduced left ventricular ejection fraction
Sacubitril/valsartan 24 mg / 26 mg twice daily started
Patient is still scheduled for PVI on May 2024
Heart rate is better controlled�stop digoxin -digoxin level ordered- WNL
Patient systolic blood pressure was in the 80s on 04/23/2024�midodrine 2.5 mg 3 times daily added -this has been increased to midodrine 5 mg p.o. 3 times daily on 12/23/2024
-Anemia, multifactorial with iron deficiency: Stable
On a PPI with lansoprazole
Persistently low hemoglobin around 9 despite no obvious signs of bleed
Iron, iron saturation, and ferritin were low on prior labs. Continue oral iron
-Essential hypertension: Stable
Continue metoprolol succinate 100 mg p.o. twice daily
-Dysphagia: Stable
Cleared for IDDSI�6 diet by speech therapy
-Tracheitis: Stable
Tracheal aspirate culture sample grew MSSA
Finished cefazolin course
-Acute on chronic HFrEF: Stable
Prior echo shows ejection fraction of 30 to 35% with global hypokinesis and small pericardial effusion
Continue Farxiga/Entresto/Toprol-XL with holding parameters adjusted to systolic blood pressure < 90
Appreciate cardiology recommendations. They have set up an outpatient follow-up.
May resume Lasix after discontinuing spironolactone 12.5 mg p.o. daily
-V. tach cardiac arrest with CPR: Monitoring
Chest x-ray did not show any osseous abnormality
Weaned off pressure support
Head CT shows atrophy and EEG showed diffuse cortical dysfunction without focal abnormality and no seizure activity
Patient is extubated and off sedation
-Sepsis, secondary to COVID-19 infection: Stable
Patient was febrile for several days without an elevated white count. Initially this was thought to be a propofol reaction versus a bacterial infection however repeat COVID test on 03/28/2024 was positive. Patient was hypothermic at 96.6 �F,
tachycardic at 102 suggesting that COVID-19 was the causative factor.
Patient has completed Zosyn. Finished 1 dose of Decadron and 5 days of remdesivir
-Superficial venous thrombus: Monitoring
Swelling in left arm near peripheral line
Ultrasound confirmed left basilic vein thrombosis�line removed�will observe
-Hyponatremia: Resolved
Assess volume status and replete as needed
-Hyperbilirubinemia: Resolved
A possible component of hemolysis versus Gilbert's disease.
Continue to monitor
-Transaminitis likely secondary due to alcoholic fatty liver with possible compounding shock liver: Resolved
Patient had an elevated AST and ALT on admission with a ratio of 2:1
Has a history of alcohol use and obesity
-Lactic acidemia: Resolved
Was elevated immediately following his cardiac arrest. Has come back down.
-Asthma: Stable
Continue to monitor
-Bipolar disorder: Stable
Patient's mother states that he used to be on Lexapro but stopped on his own due to weight gain. Appreciate psychiatry consult. Psychiatry is under the impression that the patient's encephalopathy is due to a lot more than alcohol withdrawal.
Note that he had atrophy on his CAT scan well before he came to [facility] and notes numerous comorbidities including cardiac arrest which they believe are contributing to his cognitive decline. They recommended staying away from sedating
meds as much as possible. They also noted to be aware of IV Haldol usage as the patient had a prolonged QTc earlier in the admission.
-Obesity:
Patient's BMI was greater than 30 on admission and remains greater than 30 throughout this hospital stay
Diet - IDDSI-6
DVT Ppx - SCDs
GI Ppx - Lansoprazole 30 BID
Code Status - Full Code
Imaging:
Brain MRI on 04/11/2024: No MRI evidence for acute infarct. Bilateral mastoid effusions. Moderate age-related parenchymal atrophy. No masslike effect, midline shift, or extra-axial collection.
Anticipated Discharge: > 48 hours
Subjective/Interval History
-
Date of Service: May 07, 2024
Met with patient at the bedside. He is seen eating breakfast in his room sitting up at the edge of the bed. He is under the impression that he is leaving today and I reiterated that thus far we are uncertain where he will be discharged to. I
reiterated that we appreciate his patience and finding placement for him.
Objective Data
-
Vital Signs:
Vital Signs
Temp Pulse Resp BP Pulse Ox
97.9 F 91 18 135/85 98
05/07/24 07:31 05/07/24 08:32 05/07/24 07:31 05/07/24 08:32 05/07/24 07:31
I&O
05/06/24 05/07/24 05/08/24
06:59 06:59 06:59
Intake Total 2149
Balance 2149
[2024-05-07 07:31] VITALS: BP 135/85
[2024-05-07] MEDS: FEOSOL 325 MG PO (08:29)
[2024-05-07] MEDS: SEROQUEL 100 MG PO ×2 (08:29→21:09)
[2024-05-07] MEDS: ALDACTONE 12.5 MG PO (08:29)
[2024-05-07] MEDS: FARXIGA 10 MG PO (08:30)
[2024-05-07] MEDS: NEURONTIN 300 MG PO ×3 (08:31→21:07)
[2024-05-07] MEDS: ProAmatine 5 MG PO ×3 (08:31→17:33)
[2024-05-07] MEDS: PROTONIX 40 MG PO ×2 (08:31→21:08)
[2024-05-07] MEDS: TOPROL XL 100 MG PO ×2 (08:32→21:07)
[2024-05-07] MEDS: ESKALITH ER (EXTENDED RELEASE) 450 MG PO ×2 (08:32→21:07)
[2024-05-07] MEDS: FOLVITE 1 MG PO (08:32)
[2024-05-07] MEDS: ELIQUIS 5 MG PO ×2 (08:32→21:09)
[2024-05-07] MEDS: DESENEX/MITRAZOL/ZEASORB TOPICAL ×2 (09:02→21:14)
--- NOTE | 2024-05-07 09:19 | CM ---
Addendum entered by Adrianna Palm 05/07/24 09:26:
Left VM for electric motor repair supervisor at [facility] in [place] [phone] re admission criteria, program available, etc. await TCB
Original Note:
Left VM for service coordinator elderly facility at [facility], await TCB re admission criteria, process, insurance etc. .
--- NOTE | 2024-05-07 11:41 | W.PN.UPDATE ---
Update Note
Progress Note Update
patient seen chart reviewed. spoke with nursing. patient remains much the same. he was quite pleasant albeit rather confused. je offered no complaints. would continue with current meds. reviewed cm notes. they are following up on some additional
possibilities re disposition. hopefully one of them will be able to admit mr chao and help him w cognition. psych will follow intermittently
[2024-05-07 12:27] VITALS: BP 108/71
--- NOTE | 2024-05-07 14:01 | CM ---
Addendum entered by Adrianna Palm 05/07/24 16:29:
TCB from Mom, she was trying to start social security process.
She was told by social security she will need POA and asked CM how to get that.
CM explained we cannot do that here and she may need an regulatory attorney to help with this process.
Per Mom she is going to reach out to her state consumer sales representative for assistance.
Updated mother that [facility] and touch base with her.
Addendum entered by Adrianna Palm 05/07/24 16:24:
[facility] Екатерина Avila [phone]
call Friday to discuss funding, program and availability
email [email or web address]
Addendum entered by Adrianna Palm 05/07/24 15:07:
Spoke with patients mom Lesly, relayed the information from [facility]. She is working on getting [facility] waiver program.
Addendum entered by Adrianna Palm 05/07/24 15:00:
TC to patients mom- she was unable to talk, on the phone with [place].
CM will try back in a little while.
Lesly- [phone].
Original Note:
TCB from [facility], spoke with clinical liaison Jaylen Santos p# [phone]
They offer multiple services in the [facility]- they have home and community based cognitive skills and training. They will come to the home and do the cognitive training. They do not do PT/OT.
Services are not covered thru medicare or medicaid.
Patient needs to be enrolled in the [facility] waiver program.
With the waiver program patient may be eligible for home caregivers and will get HOSPITAL ACCOUNT MANAGER(cognitive rehab therapy 2-3 days per week for 3 hours in the home).
They also offer residential rehab in [facility]. [facility] covers cost for treatment but not room and board, usually 80% of SSI taken for the residential stay.
Per Jaylen there are residential facilities closer to [facility] and has calls out to [facility].
If family wants to reach out to Jaylen he will speak with them.
--- NOTE | 2024-05-07 14:38 | CM ---
CHLOÉ met with patient's mother for ~ 25-30 minutes outside of patient's room; and explained that many referrals for neuro rehab facilities were sent; that we were waiting for responses from those facilities
CHLOÉ suggested to patient's mother that she contact [facility] to inquire if patient is eligible and can get enrolled in the [facility] waiver program; and also contacting Social Security to inquire about Disability application for
her son
[2024-05-07 15:23] VITALS: BP 131/77
[2024-05-07 17:30] VITALS: BP 122/70
[2024-05-07 23:10] VITALS: BP 141/76
[2024-05-08 05:16] VITALS: BMI 33.1
[2024-05-08 07:05] VITALS: BP 130/90
--- NOTE | 2024-05-08 09:23 | W.PN.HOSP.TC ---
Today's Communication/Plan
-
Patient medically stable for discharge. Ongoing disposition efforts.
Assessment / Plan
Assessment / Plan
Assessment/plan:
-Persistent altered mental status-possibilities include post cardiac arrest anoxic injury, alcohol induced, cannot rule out Wernicke's but patient has been getting thiamine and folate since admission. MRI shows moderate parenchymal atrophy which
raises a concern of pre-existing condition.
The patient has been getting thiamine and folate since his admission
Continue Seroquel 100 mg p.o. twice daily
Patient is no longer sedated and is extubated
MRI conducted on 04/11/2024 showed moderate age-related parenchymal atrophy. No MRI evidence for an acute infarct. Bilateral mastoid effusions. No mass effect, midline shift or extra-axial collection no abnormal signal intensity on
diffusion-weighted images.
Status unchanged from 04/13/2024
Haldol dosage was reduced to 1 mg IV every 8 hours as needed after recommendations from psychiatry. The patient is much more clear after this medication adjustment.
The patient's current mental status appears to be the patient's new baseline
Appreciate psychiatry recommendations- [place] carbonate increased to 900 mg daily �we will follow lithium levels -lithium level on 05/02/24 was 0.4 and subtherapeutic, lithium level on 05/03/2024 is 0.6 mmol/L which is within the lower end of the
therapeutic range.
-Alcohol use disorder with possible withdrawal seizure -stable
On 03/24/2024 the patient was seen with seizure-like activity before becoming unresponsive requiring ACLS
Off of MSSA protocol
Continue thiamine and folic acid with Ativan as per protocol.
Phenobarbital taper completed.
-Ambulatory Dysfunction: Resolved
Patient is much clearer on 04/14/2024 but remains unable to be steady on his feet.
PT OT evaluation recommends that the patient receive acute rehab upon discharge.
Patient able to ambulate independently on 05/05/2024
-Sepsis secondary to acute Influenza A Infection: Resolved
Nasal swab on 04/18/2024 positive for influenza A
White blood cells 4.0 on 04/19/2024
Blood pressure 99/64 on 04/19/2024
Pulse 101 on 04/18 at 19: 26
Temperature 101.2 on 04/18 at 19: 26
Elevated alkaline phosphatase at 140
Tamiflu 75 mg p.o. twice daily started for 5 days - Completed
-Persistent atrial fibrillation: Monitoring
Patient is on Toprol-XL 100 mg twice daily
Patient currently on digoxin 250 mcg -check digoxin levels on the day of discharge and again 1 month after discharge
Cardiology restarted benazepril on 04/12/2024
Cardiology recommends avoiding usage calcium channel blockers if possible given reduced left ventricular ejection fraction
Sacubitril/valsartan 24 mg / 26 mg twice daily started
Patient is still scheduled for PVI on May 2024
Heart rate is better controlled�stop digoxin -digoxin level ordered- WNL
Patient systolic blood pressure was in the 80s on 04/23/2024�midodrine 2.5 mg 3 times daily added -this has been increased to midodrine 5 mg p.o. 3 times daily on 12/23/2024
-Anemia, multifactorial with iron deficiency: Stable
On a PPI with lansoprazole
Persistently low hemoglobin around 9 despite no obvious signs of bleed
Iron, iron saturation, and ferritin were low on prior labs. Continue oral iron
-Essential hypertension: Stable
Continue metoprolol succinate 100 mg p.o. twice daily
-Acute on chronic HFrEF: Stable
Prior echo shows ejection fraction of 30 to 35% with global hypokinesis and small pericardial effusion
Continue Farxiga/Entresto/Toprol-XL with holding parameters adjusted to systolic blood pressure < 90
Appreciate cardiology recommendations. They have set up an outpatient follow-up.
May resume Lasix after discontinuing spironolactone 12.5 mg p.o. daily
-V. tach cardiac arrest with CPR: Monitoring
Chest x-ray did not show any osseous abnormality
Weaned off pressure support
Head CT shows atrophy and EEG showed diffuse cortical dysfunction without focal abnormality and no seizure activity
Patient is extubated and off sedation
-Sepsis, secondary to COVID-19 infection: Stable
Patient was febrile for several days without an elevated white count. Initially this was thought to be a propofol reaction versus a bacterial infection however repeat COVID test on 03/28/2024 was positive. Patient was hypothermic at 96.6 �F,
tachycardic at 102 suggesting that COVID-19 was the causative factor.
Patient has completed Zosyn. Finished 1 dose of Decadron and 5 days of remdesivir
-Superficial venous thrombus: Monitoring
Swelling in left arm near peripheral line
Ultrasound confirmed left basilic vein thrombosis�line removed�will observe
-Hyperbilirubinemia: Resolved
A possible component of hemolysis versus Gilbert's disease.
Continue to monitor
-Transaminitis likely secondary due to alcoholic fatty liver with possible compounding shock liver: Resolved
Patient had an elevated AST and ALT on admission with a ratio of 2:1
Has a history of alcohol use and obesity
-Asthma: Stable
Continue to monitor
-Bipolar disorder: Stable
Patient's mother states that he used to be on Lexapro but stopped on his own due to weight gain. Appreciate psychiatry consult. Psychiatry is under the impression that the patient's encephalopathy is due to a lot more than alcohol withdrawal.
Note that he had atrophy on his CAT scan well before he came to [facility] and notes numerous comorbidities including cardiac arrest which they believe are contributing to his cognitive decline. They recommended staying away from sedating
meds as much as possible. They also noted to be aware of IV Haldol usage as the patient had a prolonged QTc earlier in the admission.
-Obesity:
Patient's BMI was greater than 30 on admission and remains greater than 30 throughout this hospital stay
Diet -regular
DVT Ppx - SCDs
GI Ppx - Lansoprazole 30 BID
Code Status - Full Code
Anticipated Discharge: > 48 hours
Subjective/Interval History
-
Date of Service: May 08, 2024
Alert and oriented to self
Remains confused. But no impulsivity or agitation.
Objective Data
-
Vital Signs:
Vital Signs
Temp Pulse Resp BP Pulse Ox
98.4 F 87 18 130/90 100
05/08/24 07:05 05/08/24 07:05 05/08/24 07:05 05/08/24 07:05 05/08/24 07:05
I&O
05/07/24 05/08/24 05/09/24
06:59 06:59 07:59
Intake Total 1919
Balance 1919
Review of Systems
-
Unable to obtain full review of systems at this time due to: Other (Cognitive impairment)
Respiratory: Denies Cough or Trouble Breathing
Cardiac: Denies Chest Pain or Palpitations
Abdomen/GI: Denies Abdominal Pain, Nausea or Vomiting
Neuro: Denies Dizzy
Physical Exam
-
General: No Apparent Distress
Respiratory: Non Labored Respirations; Negative Accessory Resp Muscle Use
Cardiac: Regular Rhythm and S1/S2
GI: Soft
Neuro: Awake, Alert and Oriented
Psych: Calm and Confused; Negative Agitated
[2024-05-08] MEDS: FOLVITE 1 MG PO (09:32)
[2024-05-08] MEDS: FEOSOL 325 MG PO (09:32)
[2024-05-08] MEDS: ProAmatine 5 MG PO ×3 (09:33→17:09)
[2024-05-08] MEDS: SEROQUEL 100 MG PO ×2 (09:33→20:36)
[2024-05-08] MEDS: PROTONIX 40 MG PO ×2 (09:33→20:35)
[2024-05-08] MEDS: FARXIGA 10 MG PO (09:33)
[2024-05-08] MEDS: ALDACTONE 12.5 MG PO (09:33)
[2024-05-08] MEDS: NEURONTIN 300 MG PO ×3 (09:33→21:13)
[2024-05-08] MEDS: ESKALITH ER (EXTENDED RELEASE) 450 MG PO ×2 (09:33→20:36)
[2024-05-08] MEDS: ELIQUIS 5 MG PO ×2 (09:33→20:36)
[2024-05-08] MEDS: TOPROL XL 100 MG PO ×2 (09:33→20:36)
[2024-05-08] MEDS: DESENEX/MITRAZOL/ZEASORB 1 APPLIC TOPICAL (09:36)
[2024-05-08 12:00] VITALS: BP 98/44
[2024-05-08 15:10] VITALS: BP 126/84
[2024-05-08] MEDS: DESENEX/MITRAZOL/ZEASORB TOPICAL (20:37)
[2024-05-08 23:19] VITALS: BP 123/74
[2024-05-09 06:00] VITALS: BMI 32.9
[2024-05-09 07:04] LABS: Lithium 0.7 mmol/L (0.6-1.2)
[2024-05-09 07:06] VITALS: BP 126/93
[2024-05-09] MEDS: TOPROL XL 100 MG PO ×2 (09:49→19:14)
[2024-05-09] MEDS: ProAmatine 5 MG PO ×3 (09:49→17:52)
[2024-05-09] MEDS: FEOSOL 325 MG PO (09:49)
[2024-05-09] MEDS: NEURONTIN 300 MG PO ×3 (09:49→21:00)
[2024-05-09] MEDS: ALDACTONE 12.5 MG PO (09:49)
[2024-05-09] MEDS: ELIQUIS 5 MG PO ×2 (09:49→19:15)
[2024-05-09] MEDS: SEROQUEL 100 MG PO ×2 (09:50→19:14)
[2024-05-09] MEDS: FARXIGA 10 MG PO (09:50)
[2024-05-09] MEDS: PROTONIX 40 MG PO ×2 (09:50→19:14)
[2024-05-09] MEDS: ESKALITH ER (EXTENDED RELEASE) 450 MG PO ×2 (09:50→19:15)
[2024-05-09] MEDS: FOLVITE 1 MG PO (09:50)
[2024-05-09] MEDS: DESENEX/MITRAZOL/ZEASORB 1 APPLIC TOPICAL ×2 (09:53→19:17)
--- NOTE | 2024-05-09 14:35 | W.PN.HOSP.TC ---
Today's Communication/Plan
-
Ongoing dispo efforts
Assessment / Plan
Assessment / Plan
Assessment/plan:
-Persistent altered mental status-possibilities include post cardiac arrest anoxic injury, alcohol induced, cannot rule out Wernicke's but patient has been getting thiamine and folate since admission. MRI shows moderate parenchymal atrophy which
raises a concern of pre-existing condition.
The patient has been getting thiamine and folate since his admission
Continue Seroquel 100 mg p.o. twice daily
Patient is no longer sedated and is extubated
MRI conducted on 04/11/2024 showed moderate age-related parenchymal atrophy. No MRI evidence for an acute infarct. Bilateral mastoid effusions. No mass effect, midline shift or extra-axial collection no abnormal signal intensity on
diffusion-weighted images.
Status unchanged from 04/13/2024
Haldol dosage was reduced to 1 mg IV every 8 hours as needed after recommendations from psychiatry. The patient is much more clear after this medication adjustment.
The patient's current mental status appears to be the patient's new baseline
Appreciate psychiatry recommendations- [place] carbonate increased to 900 mg daily �we will follow lithium levels -lithium level on 05/02/24 was 0.4 and subtherapeutic, lithium level on 05/03/2024 is 0.6 mmol/L which is within the lower end of the
therapeutic range.
-Alcohol use disorder with possible withdrawal seizure -stable
On 03/24/2024 the patient was seen with seizure-like activity before becoming unresponsive requiring ACLS
Off of MSSA protocol
Continue thiamine and folic acid with Ativan as per protocol.
Phenobarbital taper completed.
-Ambulatory Dysfunction: Resolved
Patient is much clearer on 04/14/2024 but remains unable to be steady on his feet.
PT OT evaluation recommends that the patient receive acute rehab upon discharge.
Patient able to ambulate independently
-Sepsis secondary to acute Influenza A Infection: Resolved
Nasal swab on 04/18/2024 positive for influenza A
White blood cells 4.0 on 04/19/2024
Blood pressure 99/64 on 04/19/2024
Pulse 101 on 04/18 at 19: 26
Temperature 101.2 on 04/18 at 19: 26
Elevated alkaline phosphatase at 140
Tamiflu 75 mg p.o. twice daily started for 5 days - Completed
-Persistent atrial fibrillation: Monitoring
Patient is on Toprol-XL 100 mg twice daily
Patient currently on digoxin 250 mcg -check digoxin levels on the day of discharge and again 1 month after discharge
Cardiology restarted benazepril on 04/12/2024
Cardiology recommends avoiding usage calcium channel blockers if possible given reduced left ventricular ejection fraction
Sacubitril/valsartan 24 mg / 26 mg twice daily started
Patient is still scheduled for PVI on May 2024
Heart rate is better controlled�stop digoxin -digoxin level ordered- WNL
Patient systolic blood pressure was in the 80s on 04/23/2024�midodrine 2.5 mg 3 times daily added -this has been increased to midodrine 5 mg p.o. 3 times daily on 12/23/2024
-Anemia, multifactorial with iron deficiency: Stable
On a PPI with lansoprazole
Persistently low hemoglobin around 9 despite no obvious signs of bleed
Iron, iron saturation, and ferritin were low on prior labs. Continue oral iron
-Essential hypertension: Stable
Continue metoprolol succinate 100 mg p.o. twice daily
-Acute on chronic HFrEF: Stable
Prior echo shows ejection fraction of 30 to 35% with global hypokinesis and small pericardial effusion
Continue Farxiga/Entresto/Toprol-XL with holding parameters adjusted to systolic blood pressure < 90
Appreciate cardiology recommendations. They have set up an outpatient follow-up.
May resume Lasix after discontinuing spironolactone 12.5 mg p.o. daily
-V. tach cardiac arrest with CPR: Monitoring
Chest x-ray did not show any osseous abnormality
Weaned off pressure support
Head CT shows atrophy and EEG showed diffuse cortical dysfunction without focal abnormality and no seizure activity
Patient is extubated and off sedation
-Sepsis, secondary to COVID-19 infection: Stable
Patient was febrile for several days without an elevated white count. Initially this was thought to be a propofol reaction versus a bacterial infection however repeat COVID test on 03/28/2024 was positive. Patient was hypothermic at 96.6 �F,
tachycardic at 102 suggesting that COVID-19 was the causative factor.
Patient has completed Zosyn. Finished 1 dose of Decadron and 5 days of remdesivir
-Superficial venous thrombus: Monitoring
Swelling in left arm near peripheral line
Ultrasound confirmed left basilic vein thrombosis�line removed�will observe
-Hyperbilirubinemia: Resolved
A possible component of hemolysis versus Gilbert's disease.
Continue to monitor
-Transaminitis likely secondary due to alcoholic fatty liver with possible compounding shock liver: Resolved
Patient had an elevated AST and ALT on admission with a ratio of 2:1
Has a history of alcohol use and obesity
-Asthma: Stable
Continue to monitor
-Bipolar disorder: Stable
Patient's mother states that he used to be on Lexapro but stopped on his own due to weight gain. Appreciate psychiatry consult. Psychiatry is under the impression that the patient's encephalopathy is due to a lot more than alcohol withdrawal.
Note that he had atrophy on his CAT scan well before he came to [facility] and notes numerous comorbidities including cardiac arrest which they believe are contributing to his cognitive decline. They recommended staying away from sedating
meds as much as possible. They also noted to be aware of IV Haldol usage as the patient had a prolonged QTc earlier in the admission.
-Obesity:
Patient's BMI was greater than 30 on admission and remains greater than 30 throughout this hospital stay
Diet -regular
DVT Ppx - SCDs
GI Ppx - Lansoprazole 30 BID
Code Status - Full Code
Remains medically stable for DC
Ongoing dispo efforts
Anticipated Discharge: 24 - 48 hours
Subjective/Interval History
-
Date of Service: May 09, 2024
Voices no specific complaints. Alert and oriented. Still remains confused but pleasant without any impulsivity or agitation.
Objective Data
-
Vital Signs:
Vital Signs
Temp Pulse Resp BP Pulse Ox
97.8 F 98 16 126/93 100
05/09/24 07:06 05/09/24 07:06 05/09/24 07:06 05/09/24 07:06 05/09/24 08:00
I&O
05/08/24 05/09/24 05/10/24
05:59 06:59 06:59
Intake Total
Balance
Review of Systems
-
Unable to obtain full review of systems at this time due to: Other (cognitive impairment)
Respiratory: Denies Trouble Breathing
Cardiac: Denies Chest Pain
Abdomen/GI: Denies Abdominal Pain, Nausea or Vomiting
Neuro: Denies Dizzy or Headache
Physical Exam
-
General: Comfortable
Respiratory: Non Labored Respirations; Negative Accessory Resp Muscle Use
Cardiac: Regular Rhythm and S1/S2
Neuro: Awake, Alert, Oriented and No Motor Deficits
Psych: Calm and Confused; Negative Agitated
[2024-05-09 15:10] VITALS: BP 121/81
[2024-05-09 23:23] VITALS: BP 120/77
[2024-05-10 06:00] VITALS: BMI 33.0
[2024-05-10 07:10] VITALS: BP 121/87
--- NOTE | 2024-05-10 07:23 | W.PN.HOSP.TC ---
Addendum entered and electronically signed by Thad Reno MD 05/11/24 00:39:
Attending Addendum-
I saw and evaluated the patient. I reviewed the resident�s note and agree with findings and plan as documented in the resident�s note. Sub: Patient seen with mother present. Patient staets he just ate lunch. Per mother he has not eaten lunch.
Patient appears to be confabulating. No complaints. Full 12 point ROS reviewed and negative except as documented Exam: Vitals reviewed in chart GEN-NAD heart irreg irreg lungs clear abd soft LE no edema Neuro AAO x2 short term memory deficit
confabulating
-Persistent altered mental status-possibilities include post cardiac arrest anoxic injury, alcohol WD induced, Wernicke's
restart thiamine cont folate
Continue Seroquel 100 mg p.o. twice daily
MRI conducted on 04/11/2024 showed moderate age-related parenchymal atrophy. No MRI evidence for an acute infarct. Bilateral mastoid effusions. No mass effect, midline shift or extra-axial collection no abnormal signal intensity on
diffusion-weighted images.
The patient's current mental status appears to be the patient's new baseline
Appreciate psychiatry recommendations- cont Tancred carbonate 900 mg daily
-Alcohol use disorder with withdrawal seizure
Off of MSSA protocol
Continue thiamine and folic acid with Ativan as per protocol.
Phenobarbital taper completed.
-Sepsis secondary to acute Influenza A Infection: Resolved
Nasal swab on 04/18/2024 positive for influenza A
Tamiflu 75 mg p.o. twice daily x 5 days - Completed
-Persistent atrial fibrillation
Patient is on Toprol-XL 100 mg twice daily
Patient scheduled for PVI on May 2024
-Anemia, multifactorial with iron deficiency: Stable
On a PPI with lansoprazole
Persistently low hemoglobin around 9 despite no obvious signs of bleed
Iron, iron saturation, and ferritin were low on prior labs. Continue oral iron
-Essential hypertension: Stable
Continue metoprolol succinate 100 mg p.o. twice daily
on midodrine T/C DC if BP cont to be WNL
-Chronic HFrEF
ECHO 03/27-ejection fraction of 30 to 35% with global hypokinesis and small pericardial effusion
Continue Farxiga/Toprol-XL/spironolactone with holding parameters adjusted to systolic blood pressure < 90
Appreciate cardiology recommendations. They have set up an outpatient follow-up.
-V. tach cardiac arrest s/p CPR
Weaned off pressure support
Head CT shows atrophy and EEG showed diffuse cortical dysfunction without focal abnormality and no seizure activity
Patient is extubated and off sedation
-Sepsis, secondary to COVID-19 infection
resolved
Finished 1 dose of Decadron and 5 days of remdesivir
-Superficial venous thrombus: Monitoring
Swelling in left arm near peripheral line
Ultrasound confirmed left basilic vein thrombosis�line removed�will observe
-Hyperbilirubinemia: Resolved
A possible component of hemolysis versus Gilbert's disease.
Continue to monitor
-Transaminitis likely secondary due to alcoholic fatty liver with possible compounding shock liver: Resolved
Patient had an elevated AST and ALT on admission with a ratio of 2:1
Has a history of alcohol use and obesity
-Asthma: Stable
Continue to monitor
-Bipolar disorder: Stable
cont lithium new
-Obesity:
Patient's BMI was greater than 30 on admission and remains greater than 30 throughout this hospital stay
Diet -regular
DVT Ppx - SCDs
GI Ppx - Lansoprazole 30 BID
Code Status - Full Code
Remains medically stable for DC, DC in AM
Time spent coordinating care, review of plan of care with resident, personally reviewed records in EMR, med rec, consults, notes, labs, radiology, d/w nursing CM and mother � 55 mins
Original Note:
Today's Communication/Plan
-
* Medically stable for discharge; ongoing disposition efforts.
Assessment / Plan
Assessment / Plan
Assessment
Sarthak Voss, 38-year-old male, presented to the hospital on 03-23-24 with epistaxis and upper GI bleed. Suspected alcohol withdrawal, ended up going into cardiac arrest overnight. ACLS was initiated when his DNR-DNI (which is what he was admitted
with) was revoked by family over the phone. ROSC after 9 minutes. Since then, he has developed and resolved sepsis secondary to COVDI-19, sepsis secondary to influenza, acute on chronic heart failure with reduced ejection fraction, ambulatory
dysfunction, hyperbilirubinemia and transaminitis. Unfortunately, he experienced cognitive impairment which have persisted and seems to be his new baseline.
Impression and plan
Persistent encephalopathy
- Possibilities include post cardiac arrest anoxic injury, alcohol induced, Wernicke's, or a combination of them.
- MRI shows moderate parenchymal atrophy which raises a concern of pre-existing condition.
- Continue quetiapine 100 mg twice daily.
- Haloperidol as needed for aggression or agitation.
- Tancred has helped; 450 mg ER BID; levels within range.
- The patient's current mental status appears to be the patient's new baseline
- Psychiatry following.
Alcohol use disorder with possible withdrawal seizure, resolved
- On 03-24-24 the patient was seen with seizure-like activity before becoming unresponsive requiring ACLS.
- Phenobarbital taper completed.
- Continue folic acid and thiamine.
Ambulatory dysfunction, resolved
- Able to ambulate independently now.
Sepsis secondary to influenza A, resolved
- Status-post oseltamivir 75 mg p.o. twice daily started for 5 days.
- Asymptomatic and stable.
Persistent atrial fibrillation, stable
- Patient is on metoprolol succinate 100 mg twice daily
- Sacubitril/valsartan 24 mg / 26 mg twice daily started.
Anemia, multifactorial with iron deficiency
- Persistently low hemoglobin around 9 despite no obvious signs of bleed
- Iron, iron saturation, and ferritin were low on prior labs.
- Continue oral iron.
Primary hypertension
- Normotensive, and on midodrine.
- Continue metoprolol, spironolactone, dapagliflozin.
Acute on chronic heart failure with reduced ejection fraction
- Prior echo shows ejection fraction of 30 to 35% with global hypokinesis and small pericardial effusion.
- Continue metoprolol, spironolactone, dapagliflozin with holding parameters adjusted to systolic blood pressure < 90.
- Cardiology following.
Cardiac arrest, resolved
- ACLS from [id number]; initiated after DNR-DNI was revoked by mother over phone.
- Chest x-ray did not show any osseous abnormality
- Weaned off pressure support
- Head CT shows atrophy and EEG showed diffuse cortical dysfunction without focal abnormality and no seizure activity.
Sepsis secondary to COVID-19, resolved
- On 03-28-24.
- Status-post remdesivir.
- Asymptomatic and stable.
Superficial venous thrombus, resolved
- Swelling in left arm near peripheral line
- Ultrasound confirmed left basilic vein thrombosis�line removed�stable since.
Hyperbilirubinemia, resolved
- A possible component of hemolysis versus Gilbert's disease.
- Continue to monitor.
Transaminitis, resolved
Likely secondary due to alcoholic fatty liver
With possible compounding shock liver
- Patient had an elevated AST and ALT on admission.
- Stable and asymptomatic.
Mild intermittent asthma
- Albuterol as needed.
Bipolar disorder
- Stable, and now on lithium.
- In the theraputic range.
Class I obesity
- Affects all aspects of care.
Thromboprophylaxis
- On apixaban.
Disposition
- Medically stable for discharge.
- On-going efforts.
Code status
- Full.
Anticipated Discharge: 24 - 48 hours
Subjective/Interval History
-
Date of Service: May 10, 2024
Stable. No overnight events noted. No new complaints.
Objective Data
-
Vital Signs:
Vital Signs
Temp Pulse Resp BP Pulse Ox
98.4 F 91 17 120/77 98
05/09/24 23:23 05/09/24 23:23 05/09/24 23:23 05/09/24 23:23 05/09/24 23:23
I&O
05/09/24 05/10/24 05/11/24
06:59 06:59 06:59
Intake Total 1769
Balance 1769
Review of Systems
-
Unable to obtain full review of systems at this time due to: Other (mental status)
History Source: Patient and Records
Constitutional: Reports No Symptoms
EENT: Reports No Symptoms Reported
Respiratory: Reports No Symptoms
Cardiac: Reports No Symptoms
Abdomen/GI: Reports No Symptoms
Genitourinary: Reports No Symptoms
Musculoskeletal: Reports No Symptoms
Skin: Reports No Symptoms
Neuro: Reports Other (memory issues)
Endocrine: Reports No Symptoms
Hematologic / Lymphatic: Reports No Symptoms
Allergy / Immunology: Reports No Symptoms
Physical Exam
-
General: No Apparent Distress and Comfortable
HEENT: Normocephalic, Atraumatic, Moist Mucous Membranes, Anicteric and No Ptosis
Respiratory: Clear to Auscultation and Non Labored Respirations
Cardiac: Regular Rhythm and S1/S2
GI: Soft, Nontender and Nondistended
Genito-urinary: No Costovertebral Tender
Musculoskeletal: No Clubbing, No Cyanosis and No Edema
Skin: Warm, Dry and IV Access / Catheter Site
Neuro: Awake, Alert, No Motor Deficits, No Sensory Deficits and Other (confabulation; short-term memory defect); Negative Oriented
Psych: Other (impaired judgement and insignt)
[2024-05-10] MEDS: NEURONTIN 300 MG PO ×3 (07:54→21:35)
[2024-05-10] MEDS: FOLVITE 1 MG PO (07:55)
[2024-05-10] MEDS: ESKALITH ER (EXTENDED RELEASE) 450 MG PO ×2 (07:55→20:48)
[2024-05-10] MEDS: TOPROL XL 100 MG PO ×2 (07:55→21:35)
[2024-05-10] MEDS: SEROQUEL 100 MG PO ×2 (07:55→21:35)
[2024-05-10] MEDS: FEOSOL 325 MG PO (07:55)
[2024-05-10] MEDS: ProAmatine 5 MG PO ×3 (07:56→18:05)
[2024-05-10] MEDS: PROTONIX 40 MG PO ×2 (07:56→20:48)
[2024-05-10] MEDS: ELIQUIS 5 MG PO ×2 (07:56→20:48)
[2024-05-10] MEDS: FARXIGA 10 MG PO (07:56)
[2024-05-10] MEDS: ALDACTONE 12.5 MG PO (07:56)
[2024-05-10] MEDS: DESENEX/MITRAZOL/ZEASORB 1 APPLIC TOPICAL ×2 (07:57→21:55)
--- NOTE | 2024-05-10 08:34 | CM ---
Addendum entered by Adrianna Palm 05/10/24 14:16:
Spoke with mother bedside.
Patient awake and alert, answering questions appropriately and OOB ambulating in room.
Discussed applying for [facility] benefits and SSD.
Discussed that CHC may take approx 90 days and he needs to get approved to receive the benefits.
Mom does not work and more open to son coming home once CHC initiated, SSD initiated, outpatient plan set up.
Mother is agreeable to outpatient Neurological rehab (cognitive therapy) at [phone] or home with services, outpatient speech for cognitive therapy and RN for assessment, suggested SOCIAL INSURANCE ADVISER but patient declined stating he can bathe himself.
Numbers for [facility] provided to mother for more intensive cognitive therapy once [facility] waiver (if approved) goes into effect and aware he would need to get accepted into the program.
Addendum entered by Adrianna Palm 05/10/24 10:23:
Spoke with Екатерина Perdomo (correct spelling) from [facility] [phone] email [email or web address]
Per Екатерина they offer 23/09 housing, semi independent housing and apartments.
Funding is thru [facility] waiver (even though [facility] says they do not pay residential they do). Applying for [facility] waiver can take around 90 days to see if he is eligible for the waiver. He will not qualify for traumatic brain injury funding since it was not
due to a trauma, but due to anoxia.
If patient does get accepted for the waiver program then he will also get a medical billing service that will help find a program for the member.
[facility]person [facility] prior to acceptance ( but need to have the [facility] waiver first or private pay or other funding).
Per Екатерина she currently does not have housing in the 24/7 (which he would likely require).
Asked Екатерина about SSI, he should apply, however acceptance is not based on SSI. Once he has SSI approx 72% of the benefit will go to the program. Majority of SSI applicants get denied the first and second time, need to keep appealing.
Екатерина requested information on patient if family agrees to make it easier when it is time for assessment.
Екатерина will speak with the mother if she wishes to call.
Addendum entered by Adrianna Palm 05/10/24 09:28:
Left VM for Candie DUKERI re applying for [facility], await TCB.
Addendum entered by Adrianna Palm 05/10/24 09:27:
Left a VM for Duy Norman at [facility] re admission criteria etc. phone # [phone], await TCB.
Addendum entered by Adrianna Palm 05/10/24 09:19:
Left a message for Екатерина Avila at [facility] [phone], await TCB.
Addendum entered by Adrianna Palm 05/10/24 09:07:
Spoke with Kandy at [employer] rapid response line [phone], per Kandy [place] waiver program is handles by [employer] at [phone].
Spoke with passenger relations representative at [facility]- they are an independent enrollment regional ehs manager. can do application via phone or on line. Online at [employer].
Original Note:
TC from patients mother asking if CM can call [employer] to see about enrollment in the waiver program.
Phone# [phone].
Mother is also reaching out to [facility] passenger relations representative for assistance.
Mom will also reach out to [facility].
CM will reach out to [facility] and [facility].
--- NOTE | 2024-05-10 14:18 | VNURNOTE ---
Home Health Liaison spoke with patient's mom Lesly to discuss [facility] nurse/therapy, visits, schedule and homebound status. She is agreeable and understands that visits at home will be 2-3 x per week to assess and teach medical management. Mom is
aware of [facility] services and aware that [facility] will contact them for start of care in 1-2 days after discharge from .
[facility] referral completed in [facility].
[2024-05-10 15:20] VITALS: BP 122/80
[2024-05-10 18:00] VITALS: BP 141/74
[2024-05-10 23:05] VITALS: BP 132/89
[2024-05-11 07:02] VITALS: BP 104/83
[2024-05-11] MEDS: NEURONTIN 300 MG PO ×3 (07:47→21:24)
[2024-05-11] MEDS: FARXIGA 10 MG PO (07:47)
[2024-05-11] MEDS: PROTONIX 40 MG PO ×2 (07:48→21:25)
[2024-05-11] MEDS: ALDACTONE 12.5 MG PO (07:48)
[2024-05-11] MEDS: FEOSOL 325 MG PO (07:48)
[2024-05-11] MEDS: VITAMIN B1 100 MG PO (07:48)
[2024-05-11] MEDS: ELIQUIS 5 MG PO ×2 (07:48→21:25)
[2024-05-11] MEDS: ProAmatine 5 MG PO ×3 (07:48→17:05)
[2024-05-11] MEDS: DESENEX/MITRAZOL/ZEASORB 1 APPLIC TOPICAL ×2 (07:49→21:24)
[2024-05-11] MEDS: FOLVITE 1 MG PO (07:49)
[2024-05-11] MEDS: TOPROL XL 100 MG PO ×2 (07:49→21:25)
[2024-05-11] MEDS: ESKALITH ER (EXTENDED RELEASE) 450 MG PO ×2 (07:49→21:25)
[2024-05-11] MEDS: SEROQUEL 100 MG PO ×2 (07:49→21:26)
--- NOTE | 2024-05-11 07:49 | W.PN.HOSP.TC ---
Addendum entered and electronically signed by Thad Reno MD 05/12/24 00:11:
Attending Addendum-
I saw and evaluated the patient. I reviewed the resident�s note and agree with findings and plan as documented in the resident�s note. Sub: Patient seen with sister present. Patient appears to be confabulating. No complaints 'i can take care of
myself'. Full 12 point ROS reviewed and negative except as documented Exam: Vitals reviewed in chart GEN-NAD heart irreg irreg lungs clear abd soft LE no edema Neuro AAO x2 short term memory deficit confabulating
-Persistent altered mental status-possibilities include post cardiac arrest anoxic injury, alcohol WD induced, Wernicke's
contthiamine cont folate
Continue Seroquel 100 mg p.o. twice daily
MRI conducted on 04/11/2024 showed moderate age-related parenchymal atrophy. No MRI evidence for an acute infarct. Bilateral mastoid effusions. No mass effect, midline shift or extra-axial collection no abnormal signal intensity on
diffusion-weighted images.
The patient's current mental status appears to be the patient's new baseline
Appreciate psychiatry recommendations- cont new [place]
-Alcohol use disorder with withdrawal seizure
Off of MSAS protocol
Continue thiamine and folic acid with Ativan as per protocol.
Phenobarbital taper completed.
-Sepsis secondary to acute Influenza A Infection
Nasal swab on 04/18/2024 positive for influenza A
Tamiflu 75 mg p.o. twice daily x 5 days - Completed
-Persistent atrial fibrillation
Patient is on Toprol-XL 100 mg twice daily
Patient scheduled for PVI on May 2024
cont eliquis
-Anemia, multifactorial with iron deficiency
Persistently low hemoglobin around 9 despite no obvious signs of bleed
Iron, iron saturation, and ferritin were low on prior labs. Continue oral iron
-Essential hypertension: Stable
Continue metoprolol succinate 100 mg p.o. twice daily
on midodrine T/C DC if BP cont to be WNL
-Chronic HFrEF
ECHO 03/27-ejection fraction of 30 to 35% with global hypokinesis and small pericardial effusion
Continue Farxiga/Toprol-XL/spironolactone with holding parameters adjusted to systolic blood pressure < 90
Appreciate cardiology recommendations
Head CT shows atrophy and EEG showed diffuse cortical dysfunction without focal abnormality and no seizure activity
Patient extubated and off sedation
-Sepsis, secondary to COVID-19 infection
resolved
Finished 1 dose of Decadron and 5 days of remdesivir
-Superficial Vein Thrombosis
Ultrasound confirmed left basilic vein thrombosis�line removed
-Hyperbilirubinemia
A possible component of hemolysis versus Gilbert's disease.
Continue to monitor
-Transaminitis likely secondary due to alcoholic fatty liver with possible compounding shock liver
Patient had an elevated AST and ALT on admission with a ratio of 2:1
Has a history of alcohol use and obesity
-Asthma: Stable
Continue to monitor-Bipolar disorder: Stable
cont lithium new
-Obesity:
Patient's BMI was greater than 30 on admission and remains greater than 30 throughout this hospital stay
DVT Ppx - eliquis
GI Ppx - Lansoprazole 30 BID
Code Status - Full Code
Remains medically stable for DC, DC in AM
Time spent coordinating care, review of plan of care with resident, personally reviewed records in EMR, med rec, consults, notes, labs, radiology, d/w nursing CM and sister � 35 mins
Original Note:
Today's Communication/Plan
-
* Medically stable for discharge; ongoing disposition efforts.
Assessment / Plan
Assessment / Plan
Assessment
Sarthak Voss, 38-year-old male, presented to the hospital on 03-23-24 with epistaxis and upper GI bleed. Suspected alcohol withdrawal, ended up going into cardiac arrest overnight. ACLS was initiated when his DNR-DNI (which is what he was admitted
with) was revoked by family over the phone. ROSC after 9 minutes. Since then, he has developed and resolved sepsis secondary to COVDI-19, sepsis secondary to influenza, acute on chronic heart failure with reduced ejection fraction, ambulatory
dysfunction, hyperbilirubinemia and transaminitis. Unfortunately, he experienced cognitive impairment which have persisted and seems to be his new baseline.
Impression and plan
Persistent encephalopathy
- Possibilities include post cardiac arrest anoxic injury, alcohol induced, Wernicke's, or a combination of them.
- MRI shows moderate parenchymal atrophy which raises a concern of pre-existing condition.
- Continue quetiapine 100 mg twice daily.
- Haloperidol as needed for aggression or agitation.
- Dele[place] has helped; 450 mg ER BID; levels within range.
- The patient's current mental status appears to be the patient's new baseline.
- Psychiatry following.
Alcohol use disorder with possible withdrawal seizure, resolved
- On 03-24-24 the patient was seen with seizure-like activity before becoming unresponsive requiring ACLS.
- Phenobarbital taper completed.
- Continue folic acid and thiamine.
Ambulatory dysfunction, resolved
- Able to ambulate independently now.
Sepsis secondary to influenza A, resolved
- Status-post oseltamivir 75 mg p.o. twice daily started for 5 days.
- Asymptomatic and stable.
Persistent atrial fibrillation, stable
- Patient is on metoprolol succinate 100 mg twice daily
- Sacubitril/valsartan 24 mg / 26 mg twice daily started.
Anemia, multifactorial with iron deficiency
- Persistently low hemoglobin around 9 despite no obvious signs of bleed
- Iron, iron saturation, and ferritin were low on prior labs.
- Continue oral iron.
Primary hypertension
- Normotensive, and on midodrine.
- Continue metoprolol, spironolactone, dapagliflozin.
Acute on chronic heart failure with reduced ejection fraction
- Prior echo shows ejection fraction of 30 to 35% with global hypokinesis and small pericardial effusion.
- Continue metoprolol, spironolactone, dapagliflozin with holding parameters adjusted to systolic blood pressure < 90.
- Cardiology following.
Cardiac arrest, resolved
- ACLS from 8225-2330; initiated after DNR-DNI was revoked by mother over phone.
- Chest x-ray did not show any osseous abnormality
- Weaned off pressure support
- Head CT shows atrophy and EEG showed diffuse cortical dysfunction without focal abnormality and no seizure activity.
Sepsis secondary to COVID-19, resolved
- On 03-28-24.
- Status-post remdesivir.
- Asymptomatic and stable.
Superficial venous thrombus, resolved
- Swelling in left arm near peripheral line
- Ultrasound confirmed left basilic vein thrombosis�line removed�stable since.
Hyperbilirubinemia, resolved
- A possible component of hemolysis versus Gilbert's disease.
- Continue to monitor.
Transaminitis, resolved
Likely secondary due to alcoholic fatty liver
With possible compounding shock liver
- Patient had an elevated AST and ALT on admission.
- Stable and asymptomatic.
Mild intermittent asthma
- Albuterol as needed.
Bipolar disorder
- Stable, and now on lithium.
- In the theraputic range.
Class I obesity
- Affects all aspects of care.
Thromboprophylaxis
- On apixaban.
Disposition
- Medically stable for discharge.
- Family unable to care for him due to his new cognitive status.
- On-going efforts per case management.
Code status
- Full.
Anticipated Discharge: 24 - 48 hours
Subjective/Interval History
-
Date of Service: May 11, 2024
No medical complaints or overnight events. Stable.
Objective Data
-
Vital Signs:
Vital Signs
Temp Pulse Resp BP Pulse Ox
98.2 F 94 17 104/83 97
05/11/24 07:02 05/11/24 07:02 05/11/24 07:02 05/11/24 07:02 05/11/24 07:05
I&O
05/10/24 05/11/24 05/12/24
06:59 06:59 06:59
Intake Total 1769 148 / 148
Balance 1769 [id number]
Review of Systems
-
Unable to obtain full review of systems at this time due to: Other (mental status)
History Source: Patient and Records
Constitutional: Reports No Symptoms
EENT: Reports No Symptoms Reported
Respiratory: Reports No Symptoms
Cardiac: Reports No Symptoms
Abdomen/GI: Reports No Symptoms
Genitourinary: Reports No Symptoms
Musculoskeletal: Reports No Symptoms
Skin: Reports No Symptoms
Neuro: Reports Other (memory issues)
Endocrine: Reports No Symptoms
Hematologic / Lymphatic: Reports No Symptoms
Allergy / Immunology: Reports No Symptoms
Physical Exam
-
General: No Apparent Distress and Comfortable
HEENT: Normocephalic, Atraumatic, Moist Mucous Membranes, Anicteric and No Ptosis
Respiratory: Clear to Auscultation and Non Labored Respirations
Cardiac: Regular Rhythm and S1/S2
GI: Soft, Nontender and Nondistended
Genito-urinary: No Costovertebral Tender
Musculoskeletal: No Clubbing, No Cyanosis and No Edema
Skin: Warm, Dry and IV Access / Catheter Site
Neuro: Awake, Alert, No Motor Deficits, No Sensory Deficits and Other (confabulation; short-term memory defect); Negative Oriented
Psych: Other (impaired judgement and insignt)
--- NOTE | 2024-05-11 11:55 | W.PN.UPDATE ---
Update Note
Progress Note Update
Patient seen at bedside, chart reviewed, discussed with staff. Patient is doing well and eager for DC. He has not been agitated or aggressive. Intermittently confused. Offers no complaints at this time. Somewhat inappropriately asks to 'get a look
at me' and asks who I am all dressed up for. He tells me he is going to an art show that his brother is in. He reports his sleep is good. Appetite is fair. Denies any overt anxiety or depressive symptoms.
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 [employer] level on 05/09 therapeutic
at 0.7. Routine monitoring. Should f/u with psychiatry as OP. Efforts to continue for a safe discharge plan.
[2024-05-11 15:21] VITALS: BP 118/75
--- NOTE | 2024-05-11 15:23 | CM ---
patient seen at bedside.
Mother states she reached out to state patient registration representative for assistance.
[facility]
PLAN: home with [facility], once CHC initiated, SSD initiated, outpatient plan set up.
[2024-05-11 23:13] VITALS: BP 120/83
[2024-05-12 06:25] VITALS: BMI 33.1
[2024-05-12 07:10] VITALS: BP 113/71
--- NOTE | 2024-05-12 08:14 | W.PN.HOSP.TC ---
Addendum entered and electronically signed by Thad Reno MD 05/13/24 00:44:
Attending Addendum-
I saw and evaluated the patient. I reviewed the resident�s note and agree with findings and plan as documented in the resident�s note. Sub: Patient seen with CM and MOM present. Patient answering questiong appropriately. No complaints Full 12 point
ROS reviewed and negative except as documented Exam: Vitals reviewed in chart GEN-NAD heart irreg irreg lungs clear abd soft LE no edema Neuro AAO x2 short term memory deficit confabulating at times
-Persistent altered mental status-possibilities include post cardiac arrest anoxic injury, alcohol WD induced, Wernicke's
cont thiamine cont folate
Continue Seroquel 100 mg p.o. twice daily
MRI conducted on 04/11/2024 showed moderate age-related parenchymal atrophy. No MRI evidence for an acute infarct. Bilateral mastoid effusions. No mass effect, midline shift or extra-axial collection no abnormal signal intensity on
diffusion-weighted images.
The patient's current mental status appears to be the patient's new baseline
Appreciate psychiatry recommendations- cont new [place]
-Alcohol use disorder with withdrawal seizure
Off of MSAS protocol
Continue thiamine and folic acid with Ativan as per protocol.
Phenobarbital taper completed.
-Sepsis secondary to acute Influenza A Infection
Nasal swab on 04/18/2024 positive for influenza A
Tamiflu 75 mg p.o. twice daily x 5 days
- Completed-Persistent atrial fibrillation
Patient is on Toprol-XL 100 mg twice daily
Patient scheduled for PVI on May 2024
cont eliquis
-Anemia, multifactorial with iron deficiency
Persistently low hemoglobin around 9 despite no obvious signs of bleed
Iron, iron saturation, and ferritin were low on prior labs. Continue oral iron
-Essential hypertension: Stable
Continue metoprolol succinate 100 mg p.o. twice daily
on midodrine T/C DC if BP cont to be WNL
-Chronic HFrEF
ECHO 03/27-ejection fraction of 30 to 35% with global hypokinesis and small pericardial effusion
Continue Farxiga/Toprol-XL/spironolactone with holding parameters adjusted to systolic blood pressure < 90
Appreciate cardiology recommendations
-Sepsis, secondary to COVID-19 infection
resolved
Finished 1 dose of Decadron and 5 days of remdesivir
-Superficial Vein Thrombosis
Ultrasound confirmed left basilic vein thrombosis�line removed-Hyperbilirubinemia
A possible component of hemolysis versus Gilbert's disease.
Continue to monitor
-Transaminitis likely secondary due to alcoholic fatty liver with possible compounding shock liver
Patient had an elevated AST and ALT on admission with a ratio of 2:1
Has a history of alcohol use and obesity-Asthma: Stable
Continue to monitor
-Bipolar disorder: Stable
cont lithium new
-Obesity:
Patient's BMI was greater than 30 on admission and remains greater than 30 throughout this hospital stay
DVT Ppx - eliquis
GI Ppx - Lansoprazole 30 BID
Code Status - Full Code
Dispo DC home with mom
Time spent coordinating care, DC planning, review of DC plan of care with resident, transition of care, review of records, med rec/scripts sent electronically, consults, notes, d/w consultants, nursing, family, and CM�34 mins
Original Note:
Today's Communication/Plan
-
* Albuterol prn.
* Medically stable for discharge
* Ongoing disposition efforts per case management.
Assessment / Plan
Assessment / Plan
Assessment
Sarthak Voss, 38-year-old male, presented to the hospital on 03-23-24 with epistaxis and upper GI bleed. Suspected alcohol withdrawal, ended up going into cardiac arrest overnight. ACLS was initiated when his DNR-DNI (which is what he was admitted
with) was revoked by family over the phone. ROSC after 9 minutes. Since then, he has developed and resolved sepsis secondary to COVDI-19, sepsis secondary to influenza, acute on chronic heart failure with reduced ejection fraction, ambulatory
dysfunction, hyperbilirubinemia and transaminitis. Unfortunately, he experienced cognitive impairment which have persisted and seems to be his new baseline.
Impression and plan
Persistent encephalopathy
- Possibilities include post cardiac arrest anoxic injury, alcohol induced, Wernicke's, or a combination of them.
- MRI shows moderate parenchymal atrophy which raises a concern of pre-existing condition.
- Continue quetiapine 100 mg twice daily.
- Haloperidol as needed for aggression or agitation.
- [place] has helped; 450 mg ER BID; levels within range.
- The patient's current mental status appears to be the patient's new baseline.
- Psychiatry following.
Chronic cough
Mild intermittent asthma
- Vitals stable and the patient is feeling good.
- Cough likely due to asthma.
- Re-start home albuterol as needed.
Alcohol use disorder with possible withdrawal seizure, resolved
- On 03-24-24 the patient was seen with seizure-like activity before becoming unresponsive requiring ACLS.
- Phenobarbital taper completed.
- Continue folic acid and thiamine.
Ambulatory dysfunction, resolved
- Able to ambulate independently now.
Sepsis secondary to influenza A, resolved
- Status-post oseltamivir 75 mg p.o. twice daily started for 5 days.
- Asymptomatic and stable.
Persistent atrial fibrillation, stable
- Patient is on metoprolol succinate 100 mg twice daily
- Sacubitril/valsartan 24 mg / 26 mg twice daily started.
Anemia, multifactorial with iron deficiency
- Persistently low hemoglobin around 9 despite no obvious signs of bleed
- Iron, iron saturation, and ferritin were low on prior labs.
- Continue oral iron.
Primary hypertension
- Normotensive, and on midodrine.
- Continue metoprolol, spironolactone, dapagliflozin.
Acute on chronic heart failure with reduced ejection fraction
- Prior echo shows ejection fraction of 30 to 35% with global hypokinesis and small pericardial effusion.
- Continue metoprolol, spironolactone, dapagliflozin with holding parameters adjusted to systolic blood pressure < 90.
- Cardiology following.
Cardiac arrest, resolved
- ACLS from ; initiated after DNR-DNI was revoked by mother over phone.
- Chest x-ray did not show any osseous abnormality
- Weaned off pressure support
- Head CT shows atrophy and EEG showed diffuse cortical dysfunction without focal abnormality and no seizure activity.
Sepsis secondary to COVID-19, resolved
- On 03-28-24.
- Status-post remdesivir.
- Asymptomatic and stable.
Superficial venous thrombus, resolved
- Swelling in left arm near peripheral line
- Ultrasound confirmed left basilic vein thrombosis�line removed�stable since.
Hyperbilirubinemia, resolved
- A possible component of hemolysis versus Gilbert's disease.
- Continue to monitor.
Transaminitis, resolved
Likely secondary due to alcoholic fatty liver
With possible compounding shock liver
- Patient had an elevated AST and ALT on admission.
- Stable and asymptomatic.
Mild intermittent asthma
- Albuterol as needed.
Bipolar disorder
- Stable, and now on lithium.
- In the therapeutic range.
Class I obesity
- Affects all aspects of care.
Thromboprophylaxis
- Apixaban.
Disposition
- Medically stable for discharge.
- Family unable to care for him due to his new cognitive status.
- On-going efforts per case management.
Code status
- Full.
Anticipated Discharge: > 48 hours
Subjective/Interval History
-
Date of Service: May 12, 2024
Stable overnight. Has a mild cough this morning, which the patient states he gets when he wakes up. His inhaler helped him previously when he was home.
Objective Data
-
Vital Signs:
Vital Signs
Temp Pulse Resp BP Pulse Ox
98.5 F 85 16 113/71 98
05/12/24 07:10 05/12/24 07:10 05/12/24 07:10 05/12/24 07:10 05/12/24 07:10
I&O
05/11/24 05/12/24 05/13/24
06:59 06:59 06:59
Intake Total 1480 / 1480 1570 / 1570
Balance 1480 / 1480 1570 / 1570
Review of Systems
-
Unable to obtain full review of systems at this time due to: Other (mental status)
History Source: Patient and Records
Constitutional: Reports No Symptoms
EENT: Reports No Symptoms Reported
Respiratory: Reports No Symptoms
Cardiac: Reports No Symptoms
Abdomen/GI: Reports No Symptoms
Genitourinary: Reports No Symptoms
Musculoskeletal: Reports No Symptoms
Skin: Reports No Symptoms
Neuro: Reports Other (memory issues)
Endocrine: Reports No Symptoms
Hematologic / Lymphatic: Reports No Symptoms
Allergy / Immunology: Reports No Symptoms
Physical Exam
-
General: No Apparent Distress and Comfortable
HEENT: Normocephalic, Atraumatic, Moist Mucous Membranes, Anicteric and No Ptosis
Respiratory: Clear to Auscultation and Non Labored Respirations
Cardiac: Regular Rhythm and S1/S2
GI: Soft, Nontender and Nondistended
Genito-urinary: No Costovertebral Tender
Musculoskeletal: No Clubbing, No Cyanosis and No Edema
Skin: Warm, Dry and IV Access / Catheter Site
Neuro: Awake, Alert, No Motor Deficits, No Sensory Deficits and Other (confabulation; short-term memory defect); Negative Oriented
Psych: Other (impaired judgement and insignt)
[2024-05-12] MEDS: PROTONIX 40 MG PO (08:20)
[2024-05-12] MEDS: ELIQUIS 5 MG PO (08:20)
[2024-05-12] MEDS: SEROQUEL 100 MG PO (08:20)
[2024-05-12] MEDS: TOPROL XL 100 MG PO (08:20)
[2024-05-12] MEDS: NEURONTIN 300 MG PO (08:20)
[2024-05-12] MEDS: FOLVITE 1 MG PO (08:20)
[2024-05-12] MEDS: ESKALITH ER (EXTENDED RELEASE) 450 MG PO (08:20)
[2024-05-12] MEDS: FARXIGA 10 MG PO (08:20)
[2024-05-12] MEDS: VITAMIN B1 100 MG PO (08:20)
[2024-05-12] MEDS: FEOSOL 325 MG PO (08:20)
[2024-05-12] MEDS: ProAmatine 5 MG PO ×2 (08:21→13:48)
[2024-05-12] MEDS: DESENEX/MITRAZOL/ZEASORB 1 APPLIC TOPICAL (08:21)
[2024-05-12] MEDS: ALDACTONE 12.5 MG PO (08:21)
--- NOTE | 2024-05-12 12:59 | W.PN.UPDATE ---
Update Note
Progress Note Update
patient seen chart reviewed. mother in the room. patient is being discharged today. would leave him on current medications. lithium 450 bid gabapentin 300 tid and seroquel 100 mg bid. level is o.7 needs to take meds consistently and keep fluid
intake fairly constant. if he is nauseated /vomiting needs to consult w his pcp as this can inc lithium level. asked patient and mom to call [facility] to set up out patient psychiatry for him. they said they would. pcp can follow for a short time but
he should see a psych noise tester or psychiatrist and he has been seen at [facility] in the past. while there is still intermittent confusion he is very pleasant and doing much better. he will have vna in the home. cm to meet w him before dc likely later today.
reiterated my many warnings to stay away from alcohol which will be his downfall if he continues to drink. he did verbalize understanding of this and what he has been through.
--- NOTE | 2024-05-12 13:38 | CM ---
Patient seen bedside this am.
Discussed ETOH abstinence and possible resources for cessation.
Patient stated he was drinking last evening (which he was not).
Patient also told this CM his mother would not be in today because she was inpatient in the hospital(which she is not).
CM returned later to speak with mother bedside with patient.
Patient is set up for home with RAKESH- RN, PT/OT, ART APPRAISER.
Information provided for future outpatient cognitive therapy at [facility] outpatient therapy department once he is cleared from home care and phone number given.
Psychiatry MD scheduled an appointment at [facility] for May 27 at 3 pm, phone number provided for mother [phone]. Appointment is needed for intake and psych eval for medications (ie lithium).
Mother has phone number and website for [employer] at [phone] to sign up for [facility] waiver program and advised to do darius. [employer]
Once patient is eligible for the waiver program through [facility], mother has phone number for [facility]/Екатерина Perdomo [phone] to see if patient will qualify for outpatient or residential cognitive therapy. CM advised mother to call
Екатерина VELASQUEZ and discuss options and possibly get him on a waiting list.
Mother also advised to initiate Social Security disability and she may want to contact an Elderlaw or SS manager assurance for assistance.
Per Mother she has a friend who is in ETOH recovery who is willing to be a support person for the patient and assist with sobriety resources.
Mother has also reached out to her state [facility] for assistance.
Plan: home today with RAKESH and outpatient resources, mother will transport.
[2024-05-12 13:52] VITALS: BP 118/73
--- NOTE | 2024-05-12 14:59 | W.DCSUMMARY ---
Addendum entered and electronically signed by Thad Reno MD 05/13/24 00:45:
Read, reviewed, and agree. See same day progress note for additional details. Patient seen for 3 days of 50 day hospital course. Appropriate follow up set up. D/W CM and mother at great length.
Maykel Reno MD
Original Note:
Documented by User: Vinod Herndon MD, Resident 05/12/24 15:06
Discharge Summary
Discharge Data
Date of Admission: 03/23/24
Date of Discharge: 05/12/24
-
Pending Results: No
Hospital Course
Primary discharge diagnoses
* Persistent encephalopathy
* Cardiac arrest
* Alcohol use disorder with possible withdrawal seizure
* Upper gastrointestinal bleed
* Epistaxis
* Acute on chronic heart failure with reduced ejection fraction
* Sepsis secondary to influenza A
* Sepsis secondary to COVID-19
Secondary discharge diagnoses
- Primary hypertension
- Persistent atrial fibrillation
- Bipolar disorder
- Chronic cough
- Mild intermittent asthma
- Anemia, multifactorial with iron deficiency
- Superficial venous thrombus
- Hyperbilirubinemia
- Transaminitis
- Class I obesity
Hospital course
Sarthak Voss, 38-year-old male, presented to the emergency with bleeding from nose and hematemesis on 03-23-24, and was admitted to ICU for upper GI bleed/epistaxis. He went into cardiac arrest overnight, possibly following a witnessed seizure.
Return of spontaneous circulation was achieved after 9 minutes of advanced cardiac life support. He was intubated and started on prophylactic antiseizure medications, along with alcohol withdrawal protocol. He remained intubated until 04-03-24. His
hospital course was also complicated by sepsis secondary to COVDI-19, sepsis secondary to influenza, acute on chronic heart failure with reduced ejection fraction, electrolyte abnormalities, hyperbilirubinemia and transaminitis - all of which
resolved.
He slowly regained motor strength eventually, however the patient continued to experience cognitive impairment. These have persisted and not improved; seems to be his new baseline unfortunately. He became agitated intermittently, and was followed by
psychiatry; became stabilized with new medications. He was also followed by neurology, cardiology, handle bender, infectious diseases and physiatry through his hospital stay. Due to the cognitive damage, neuro-rehabilitation was recommended
after discharge. Discharge got delayed because of insurance issues since his insurance was not accepted at facilities where he can reasonable go to recover. His family helped apply for financial waivers and support, and he was set-up to receive home
care via VN, PT and OT. Pending approval from neuro-rehab facilities, goal would be to do outpatient rehab.
His blood work normalized through the hospital course, and vitals stayed stable and normal. Towards discharge, physical examination was notable for cognitive issues but unremarkable otherwise. He was doing well on the day of discharge with stable
vitals. He will be going home with his mother and get home care. New medications were sent to the pharmacy. Recommended to follow-up with primary and other specialists as detailed in the discharge instructions. Please see hospital progress notes for
a detailed description of the medical problems mentioned above and how they were addressed.
Discharge Plan
-
Patient Disposition: Home with Home Care
Discharge Diagnosis/Procedures: Persistent encephalopathy
Cardiac arrest
Alcohol use disorder with possible withdrawal seizure
Acute on chronic heart failure with reduced ejection fraction
Primary hypertension
Persistent atrial fibrillation
Bipolar disorder
Chronic cough
Mild intermittent asthma
Sepsis secondary to influenza A
Sepsis secondary to COVID-19
Anemia, multifactorial with iron deficiency
Superficial venous thrombus
Hyperbilirubinemia
Transaminitis
Class I obesity
Condition: Fair
Diet: Low Fat, Low Cholesterol and 2 Gram Sodium
Activity: No restrictions
Driving Restrictions: No driving
Blood Work: [facility] in 1 week
Other Services: VN
Specialty Instructions: Weigh Daily- Call MD for wt gain/loss 3 lbs overnight/5 lbs in 1 week
Instructions: *DCA Heart Failure Instructions
Referrals:
Bam Gonzalez MD [Active] - in three to four weeks
(full PFTs on office visit
Visit to discuss asthma management and to discuss possible sleep-disordered breathing)
Laureano Heller DO [Family Provider] - in less than 1 week
Bryan Phillips DO [Active] - 05/11/24 11:20 am (Your ablation previously scheduled for 05/05/2024 has been postponed to allow for recovery and rehabilitation. We will discuss moving forward with ablation at this appointment. )
Prescriptions:
New
Entresto 24-26 mg Tablet
1 tab PO BID 30 Days Qty: 60 0RF
quetiapine 100 mg Tablet
100 mg PO BID 15 Days Qty: 30 0RF
ferrous sulfate [FeroSul] 325 mg (65 mg iron) Tablet
325 mg PO DAILY 30 Days Qty: 30 0RF
folic acid 1 mg Tablet
1 mg PO DAILY 30 Days Qty: 30 0RF
thiamine mononitrate (vit B1) 100 mg Tablet
100 mg PO BID 30 Days Qty: 60 0RF
dapagliflozin propanediol 10 mg Tablet
10 mg PO DAILY 30 Days Qty: 30 0RF
midodrine 5 mg Tablet
5 mg PO TID@0800,1300,1800 30 Days Qty: 90 5RF
spironolactone 25 mg Tablet
12.5 mg PO DAILY 90 Days Qty: 45 3RF
lithium carbonate 450 mg Tablet Extended Release
450 mg PO BID 90 Days Qty: 180 3RF
gabapentin 300 mg Capsule
300 mg PO TID 90 Days Qty: 270 3RF
albuterol sulfate [Ventolin HFA] 90 mcg/actuation HFA aerosol inhaler
2 puff inhalation Q6H PRN (Reason: shortness of breath or wheezing) Qty: 8.5 8RF
Continued
albuterol sulfate [Ventolin HFA] 90 mcg/actuation Hfa Aerosol Inhaler
2 puff INHALATION Q8HPRN PRN (Reason: sob)
naphazoline-pheniramine 0.027-0.315 % Drops
1 drp OPHTHALMIC (EYE) BIDPRN PRN (Reason: eyes)
Eliquis 5 mg Tablet
5 mg PO BID
albuterol sulfate 2.5 mg /3 mL (0.083 %) solution for nebulization
2.5 mg inhalation Q4H PRN (Reason: shortness of breath or wheezing) Qty: 180 0RF
metoprolol succinate 100 mg Tablet Extended Release 24 Hr
100 mg PO BID
Discontinued
diazepam 5 mg Tablet
5 mg PO BID PRN (Reason: anxiety)
omeprazole magnesium [Prilosec OTC] 20 mg Tablet,Delayed Release (Dr/Ec)
20 mg PO PRN PRN (Reason: gerd)
benazepril 40 mg Tablet
40 mg PO DAILY
furosemide [Lasix] 20 mg Tablet
20 mg PO DAILY
Discharge Orders:
Discharge Patient (As Directed); Ordered 05/12/24
Ordered By: Vinod Herndon
Discharge Date and Time
Discharge Date/Time: 05/12/24 15:17
Print Language: CYMRAES

Documented by User: Thad Reno MD 05/13/24 00:40
Discharge Summary
Discharge Data
Date of Admission: 03/23/24
Date of Discharge: 05/13/24
Discharge Plan
-
Patient Disposition: Home with Home Care
Discharge Diagnosis/Procedures: Persistent encephalopathy
Cardiac arrest
Alcohol use disorder with possible withdrawal seizure
Acute on chronic heart failure with reduced ejection fraction
Primary hypertension
Persistent atrial fibrillation
Bipolar disorder
Chronic cough
Mild intermittent asthma
Sepsis secondary to influenza A
Sepsis secondary to COVID-19
Anemia, multifactorial with iron deficiency
Superficial venous thrombus
Hyperbilirubinemia
Transaminitis
Class I obesity
Condition: Fair
Diet: Low Fat, Low Cholesterol and 2 Gram Sodium
Activity: No restrictions
Driving Restrictions: No driving
Blood Work: [facility] in 1 week
Other Services: VN
Specialty Instructions: Weigh Daily- Call MD for wt gain/loss 3 lbs overnight/5 lbs in 1 week
Instructions: *DCA Heart Failure Instructions
Referrals:
Bam Gonzalez MD [Active] - in three to four weeks
(full PFTs on office visit
Visit to discuss asthma management and to discuss possible sleep-disordered breathing)
Laureano Heller DO [Family Provider] - in less than 1 week
Bryan Phillips DO [Active] - 05/11/24 11:20 am (Your ablation previously scheduled for 05/05/2024 has been postponed to allow for recovery and rehabilitation. We will discuss moving forward with ablation at this appointment. )
Prescriptions:
New
Entresto 24-26 mg Tablet
1 tab PO BID 30 Days Qty: 60 0RF
quetiapine 100 mg Tablet
100 mg PO BID 15 Days Qty: 30 0RF
ferrous sulfate [FeroSul] 325 mg (65 mg iron) Tablet
325 mg PO DAILY 30 Days Qty: 30 0RF
folic acid 1 mg Tablet
1 mg PO DAILY 30 Days Qty: 30 0RF
thiamine mononitrate (vit B1) 100 mg Tablet
100 mg PO BID 30 Days Qty: 60 0RF
dapagliflozin propanediol 10 mg Tablet
10 mg PO DAILY 30 Days Qty: 30 0RF
midodrine 5 mg Tablet
5 mg PO TID@0800,1300,1800 30 Days Qty: 90 5RF
spironolactone 25 mg Tablet
12.5 mg PO DAILY 90 Days Qty: 45 3RF
lithium carbonate 450 mg Tablet Extended Release
450 mg PO BID 90 Days Qty: 180 3RF
gabapentin 300 mg Capsule
300 mg PO TID 90 Days Qty: 270 3RF
albuterol sulfate [Ventolin HFA] 90 mcg/actuation HFA aerosol inhaler
2 puff inhalation Q6H PRN (Reason: shortness of breath or wheezing) Qty: 8.5 8RF
Continued
albuterol sulfate [Ventolin HFA] 90 mcg/actuation Hfa Aerosol Inhaler
2 puff INHALATION Q8HPRN PRN (Reason: sob)
naphazoline-pheniramine 0.027-0.315 % Drops
1 drp OPHTHALMIC (EYE) BIDPRN PRN (Reason: eyes)
Eliquis 5 mg Tablet
5 mg PO BID
albuterol sulfate 2.5 mg /3 mL (0.083 %) solution for nebulization
2.5 mg inhalation Q4H PRN (Reason: shortness of breath or wheezing) Qty: 180 0RF
metoprolol succinate 100 mg Tablet Extended Release 24 Hr
100 mg PO BID
Discontinued
diazepam 5 mg Tablet
5 mg PO BID PRN (Reason: anxiety)
omeprazole magnesium [Prilosec OTC] 20 mg Tablet,Delayed Release (Dr/Ec)
20 mg PO PRN PRN (Reason: gerd)
benazepril 40 mg Tablet
40 mg PO DAILY
furosemide [Lasix] 20 mg Tablet
20 mg PO DAILY
Discharge Orders:
Discharge Patient (As Directed); Ordered 05/12/24
Ordered By: Vinod Herndon
Discharge Date and Time
Discharge Date/Time: 05/12/24 15:17
Print Language: CYMRAES
== END 2024-05-12 15:17 | disposition home health service (06) | DRG 207 ==
LOC: 2 NORTH 19:09
PROVIDERS: Internal Medicine; Internal Medicine Cardiovascular Disease; Internal Medicine Critical Care Medicine; Nurse Practitioner Adult Health; Nurse Practitioner Family; Nurse Practitioner Primary Care; Physician Assistant; Psychiatry & Neurology Psychiatry; Radiology Diagnostic Radiology; Student in an Organized Health Care Education/Training Program; ADMITTING PHYSICIAN Internal Medicine; ATTENDING PHYSICIAN Family Medicine; CONSULT PHYSICIAN Internal Medicine Critical Care Medicine; CONSULT PHYSICIAN Internal Medicine Gastroenterology; CONSULT PHYSICIAN Internal Medicine Infectious Disease; CONSULT PHYSICIAN Otolaryngology Facial Plastic Surgery; CONSULT PHYSICIAN Psychiatry & Neurology Neurology; CONSULT PHYSICIAN Psychiatry & Neurology Psychiatry; EMERGENCY PHYSICIAN Emergency Medicine; FAMILY PHYSICIAN Family Medicine; OTHER PHYSICIAN Internal Medicine Cardiovascular Disease; OTHER PHYSICIAN Physical Medicine & Rehabilitation
PROC: 30233N1 Transfusion of Nonautologous Red Blood Cells into Peripheral Vein, Percutaneous Approach (ICD-10-PCS; 2024-03-23)
PROC: 093K7ZZ Control Bleeding in Nasal Mucosa and Soft Tissue, Via Natural or Artificial Opening (ICD-10-PCS; 2024-03-23)
PROC: 2Y41X5Z Packing of Nasal Region using Packing Material (ICD-10-PCS; 2024-03-23)
PROC: 0BH17EZ Insertion of Endotracheal Airway into Trachea, Via Natural or Artificial Opening (ICD-10-PCS; 2024-03-24)
PROC: 5A12012 Performance of Cardiac Output, Single, Manual (ICD-10-PCS; 2024-03-24)
PROC: 02HV33Z Insertion of Infusion Device into Superior Vena Cava, Percutaneous Approach (ICD-10-PCS; 2024-03-24)
PROC: 5A1955Z Respiratory Ventilation, Greater than 96 Consecutive Hours (ICD-10-PCS; 2024-03-24)
PROC: 0D9670Z Drainage of Stomach with Drainage Device, Via Natural or Artificial Opening (ICD-10-PCS; 2024-03-24)
PROC: 3E0G76Z Introduction of Nutritional Substance into Upper GI, Via Natural or Artificial Opening (ICD-10-PCS; 2024-03-26)
PROC: XW033E5 Introduction of Remdesivir Anti-infective into Peripheral Vein, Percutaneous Approach, New Technology Group 5 (ICD-10-PCS; 2024-03-29)
PROC: 0BP1XDZ Removal of Intraluminal Device from Trachea, External Approach (ICD-10-PCS; 2024-04-03)
PROC: 5A09357 Assistance with Respiratory Ventilation, Less than 24 Consecutive Hours, Continuous Positive Airway Pressure (ICD-10-PCS; 2024-04-04)
DX: J69.0 Pneumonitis due to inhalation of food and vomit (principal); J96.21 Acute and chronic respiratory failure with hypoxia; A41.89 Other specified sepsis; I46.8 Cardiac arrest due to other underlying condition; I50.23 Acute on chronic systolic (congestive) heart failure; U07.1 COVID-19; R57.8 Other shock; K72.00 Acute and subacute hepatic failure without coma; G93.41 Metabolic encephalopathy; K92.0 Hematemesis; I48.19 Other persistent atrial fibrillation; R04.2 Hemoptysis; D62 Acute posthemorrhagic anemia; E87.1 Hypo-osmolality and hyponatremia; D68.9 Coagulation defect, unspecified; E87.4 Mixed disorder of acid-base balance; F10.239 Alcohol dependence with withdrawal, unspecified; I47.20 Ventricular tachycardia, unspecified; I31.39 Other pericardial effusion (noninflammatory); K92.1 Melena; I82.612 Acute embolism and thrombosis of superficial veins of left upper extremity; E51.2 Wernicke's encephalopathy; E66.2 Morbid (severe) obesity with alveolar hypoventilation; G93.1 Anoxic brain damage, not elsewhere classified; D68.32 Hemorrhagic disorder due to extrinsic circulating anticoagulants; I5A Non-ischemic myocardial injury (non-traumatic); I42.6 Alcoholic cardiomyopathy; Z99.11 Dependence on respirator [ventilator] status; J10.08 Influenza due to other identified influenza virus with other specified pneumonia; I11.0 Hypertensive heart disease with heart failure; F19.10 Other psychoactive substance abuse, uncomplicated; T45.516A Underdosing of anticoagulants, initial encounter; F41.9 Anxiety disorder, unspecified; F31.9 Bipolar disorder, unspecified; K21.9 Gastro-esophageal reflux disease without esophagitis; J45.20 Mild intermittent asthma, uncomplicated; E66.811 Obesity, class 1; D69.6 Thrombocytopenia, unspecified; E86.1 Hypovolemia; R56.9 Unspecified convulsions; K76.0 Fatty (change of) liver, not elsewhere classified; E87.8 Other disorders of electrolyte and fluid balance, not elsewhere classified; E87.6 Hypokalemia; B95.61 Methicillin susceptible Staphylococcus aureus infection as the cause of diseases classified elsewhere; J04.10 Acute tracheitis without obstruction; E80.6 Other disorders of bilirubin metabolism; R13.10 Dysphagia, unspecified; R73.9 Hyperglycemia, unspecified; R68.0 Hypothermia, not associated with low environmental temperature; R04.0 Epistaxis; D50.9 Iron deficiency anemia, unspecified; E87.5 Hyperkalemia; G31.2 Degeneration of nervous system due to alcohol; R74.8 Abnormal levels of other serum enzymes; W07.XXXA Fall from chair, initial encounter; Y93.89 Activity, other specified; Y92.230 Patient room in hospital as the place of occurrence of the external cause; Z74.3 Need for continuous supervision; Z68.33 Body mass index [BMI] 33.0-33.9, adult; Z79.01 Long term (current) use of anticoagulants; Z56.0 Unemployment, unspecified; Z87.891 Personal history of nicotine dependence; Z81.3 Family history of other psychoactive substance abuse and dependence; Z82.49 Family history of ischemic heart disease and other diseases of the circulatory system; Z83.3 Family history of diabetes mellitus; Z28.310 Unvaccinated for COVID-19; Z91.128 Patient's intentional underdosing of medication regimen for other reason; Y92.9 Unspecified place or not applicable; Z78.1 Physical restraint status; Z75.1 Person awaiting admission to adequate facility elsewhere
CPT/HCPCS: 30901; 36600; 70450; 70553; 71045; 71046; 71250; 74018; 74176; 76700; 80048; 80053; 80162; 80178; 80306; 80307; 81003; 81015; 82140; 82248; 82728; 82805; 82962; 83036; 83540; 83550; 83605; 83690; 83735; 83880; 83930; 83935; 84100; 84145; 84295; 84300; 84478; 84484; 85014; 85018; 85025; 85027; 85610; 85730; 86850; 86900; 86901; 86920; 87040; 87070; 87147; 87186; 87205; 87449; 87502; 87811; 87899; 92507; 92523; 92526; 92610; 93005; 93306; 93970; 94002; 94003; 94640; 94660; 95813; 95816; 96374; 96375; 97110; 97112; 97116; 97129; 97163; 97167; 97530; 97535; 99285; A9575; J0248; J1160; P9016

== ENCOUNTER 2024-07-23 07:03 | Day surgery (SDC) | payer OTHER, SELFPAY | END 2024-07-23 09:49 | disposition home or self-care (01) | LOC: CATH 07:03 | PROVIDERS: ATTENDING PHYSICIAN Internal Medicine; FAMILY PHYSICIAN Family Medicine; OTHER PHYSICIAN Internal Medicine Cardiovascular Disease; OTHER PHYSICIAN Internal Medicine Interventional Cardiology | DX: I48.19 Other persistent atrial fibrillation (principal); I08.1 Rheumatic disorders of both mitral and tricuspid valves; I11.0 Hypertensive heart disease with heart failure; I50.22 Chronic systolic (congestive) heart failure; J45.30 Mild persistent asthma, uncomplicated; E66.9 Obesity, unspecified; Z68.36 Body mass index [BMI] 36.0-36.9, adult; Z79.01 Long term (current) use of anticoagulants | CPT/HCPCS: 93312; 93320; 93325; 92960; 93005 ==

== ENCOUNTER 2024-07-29 11:08 | Outpatient (RCR) | payer OTHER, SELFPAY | END 2024-07-29 23:59 | disposition home or self-care (01) | LOC: ROT 11:08 | PROVIDERS: ATTENDING PHYSICIAN Family Medicine | DX: G93.40 Encephalopathy, unspecified (principal); R41.841 Cognitive communication deficit; R41.840 Attention and concentration deficit; R41.89 Other symptoms and signs involving cognitive functions and awareness | CPT/HCPCS: 92960; 96125; 97110; 97129; 97130; 97167; 97530; 97535; 97537 ==

== ENCOUNTER 2024-08-26 14:25 | Outpatient (RCR) | payer OTHER, SELFPAY | END 2024-08-26 23:59 | disposition home or self-care (01) | LOC: ROT 14:25 | PROVIDERS: ATTENDING PHYSICIAN Family Medicine | DX: G93.40 Encephalopathy, unspecified (principal); R41.841 Cognitive communication deficit; R41.840 Attention and concentration deficit; R41.89 Other symptoms and signs involving cognitive functions and awareness; Z73.6 Limitation of activities due to disability | CPT/HCPCS: 97129; 97130; 97530; 97535 ==

== ENCOUNTER 2024-09-30 10:09 | Outpatient (RCR) | payer OTHER, SELFPAY | END 2024-09-30 23:59 | disposition home or self-care (01) | LOC: ROT 10:09 | PROVIDERS: ATTENDING PHYSICIAN Family Medicine | DX: G93.40 Encephalopathy, unspecified (principal); R41.841 Cognitive communication deficit; R41.840 Attention and concentration deficit; R41.89 Other symptoms and signs involving cognitive functions and awareness; Z73.6 Limitation of activities due to disability | CPT/HCPCS: 97110; 97129; 97130; 97530; 97535; 97537 ==

== ENCOUNTER 2024-10-28 14:30 | Outpatient (RCR) | payer OTHER, SELFPAY | END 2024-10-28 23:59 | disposition home or self-care (01) | LOC: ROT 14:30 | PROVIDERS: ATTENDING PHYSICIAN Family Medicine | DX: G93.40 Encephalopathy, unspecified (principal); R41.841 Cognitive communication deficit; R41.840 Attention and concentration deficit; R41.89 Other symptoms and signs involving cognitive functions and awareness; Z73.6 Limitation of activities due to disability | CPT/HCPCS: 97129; 97130; 97530; 97535 ==

== ENCOUNTER 2024-11-25 14:40 | Outpatient (RCR) | payer OTHER, SELFPAY | END 2024-11-25 23:59 | disposition home or self-care (01) | LOC: RPT 14:40 | PROVIDERS: ATTENDING PHYSICIAN Family Medicine | DX: G93.40 Encephalopathy, unspecified (principal); R41.841 Cognitive communication deficit; R41.840 Attention and concentration deficit; R41.89 Other symptoms and signs involving cognitive functions and awareness; Z73.6 Limitation of activities due to disability; M62.81 Muscle weakness (generalized); Z86.74 Personal history of sudden cardiac arrest; Z86.16 Personal history of COVID-19 | CPT/HCPCS: 97129; 97130; 97162; 97530; 97535; 97550 ==

== ENCOUNTER → 2024-12-10 14:24 | Outpatient (REF) | payer OTHER, SELFPAY | LOC: RCS 14:24 | PROVIDERS: ATTENDING PHYSICIAN Internal Medicine Cardiovascular Disease; FAMILY PHYSICIAN Family Medicine | DX: I42.8 Other cardiomyopathies (principal) | CPT/HCPCS: 93017 ==

== ENCOUNTER 2024-12-27 08:30 | Outpatient (RCR) | payer OTHER, SELFPAY | END 2024-12-27 23:59 | disposition home or self-care (01) | LOC: RPT 08:30 | PROVIDERS: ATTENDING PHYSICIAN Family Medicine | DX: G93.40 Encephalopathy, unspecified (principal); R41.841 Cognitive communication deficit; R41.840 Attention and concentration deficit; R41.89 Other symptoms and signs involving cognitive functions and awareness; Z73.6 Limitation of activities due to disability; M62.81 Muscle weakness (generalized); Z86.74 Personal history of sudden cardiac arrest; Z86.16 Personal history of COVID-19 | CPT/HCPCS: 97110; 97112; 97116; 97129; 97130; 97530; 97535 ==

== ENCOUNTER → 2025-01-17 07:04 | Outpatient (REF) | payer OTHER, SELFPAY | LOC: RCS 07:04 | PROVIDERS: ATTENDING PHYSICIAN Internal Medicine Cardiovascular Disease; FAMILY PHYSICIAN Family Medicine | DX: I48.19 Other persistent atrial fibrillation (principal); I42.9 Cardiomyopathy, unspecified | CPT/HCPCS: 78452; 93017; A9500 ==

== ENCOUNTER 2025-01-26 06:41 | Outpatient (RCR) | payer OTHER, SELFPAY | END 2025-01-26 23:59 | disposition home or self-care (01) | LOC: RPT 06:41 | PROVIDERS: ATTENDING PHYSICIAN Family Medicine | DX: G93.40 Encephalopathy, unspecified (principal); R41.841 Cognitive communication deficit; R41.840 Attention and concentration deficit; R41.89 Other symptoms and signs involving cognitive functions and awareness; Z73.6 Limitation of activities due to disability; M62.81 Muscle weakness (generalized); Z86.74 Personal history of sudden cardiac arrest; Z86.16 Personal history of COVID-19 | CPT/HCPCS: 97110; 97112; 97116; 97129; 97130; 97530 ==

== ENCOUNTER 2025-02-15 09:33 | Outpatient (RCR) | payer OTHER, SELFPAY | END 2025-02-21 10:34 | disposition home or self-care (01) | LOC: RPT 09:33 | PROVIDERS: ATTENDING PHYSICIAN Family Medicine | DX: G93.40 Encephalopathy, unspecified (principal); R41.841 Cognitive communication deficit; R41.840 Attention and concentration deficit; R41.89 Other symptoms and signs involving cognitive functions and awareness; Z73.6 Limitation of activities due to disability; M62.81 Muscle weakness (generalized); Z86.74 Personal history of sudden cardiac arrest; Z86.16 Personal history of COVID-19 | CPT/HCPCS: 97110; 97112; 97129; 97130; 97530 ==

== ENCOUNTER 2025-02-20 08:53 | Emergency (ER) | payer OTHER, SELFPAY ==
[2025-02-20 09:16] VITALS: BP 119/62
[2025-02-20] MEDS: VALIUM 5 MG PO (10:49)
[2025-02-20 11:10] LABS: Hematocrit 44.1 % (39.0-52.0); Hemoglobin 15.1 g/dL (13.0-18.0); Mean Corp Hgb Conc. 34.2 g/dL (33.0-37.0); Mean Corpuscular Volume 91.9 fL (80.0-94.0); Platelet Count 222 10^3/uL (130-400); Red Cell Dist. Width 12.8 % (11.5-14.5)
[2025-02-20 11:18] LABS: ALT (SGPT) 75 U/L (0-50); AST (SGOT) 69 U/L (17-59); Acetaminophen < 10 ug/ml (10-30); Albumin 5.1 g/dl (3.5-5.0); Alkaline Phosphatase 85 U/L (38-126); Blood Urea Nitrogen 9 mg/dl (9-20); Calcium 9.3 mg/dl (8.4-10.2); Carbon Dioxide 25 mmol/L (22-30); Chloride 104 mmol/L (98-107); Glucose 94 mg/dl (70-99); Potassium 4.8 mmol/L (3.5-5.1); Salicylate < 1.0 mg/dl (2.0-20.0); Sodium 140 mmol/L (135-145); Total Protein 8.5 g/dl (6.3-8.2); eGFR > 60.00
--- NOTE | 2025-02-20 11:23 | CS.PSYCHR ---
Consult Summary - Psychiatry
-
Patient seen by me on 02/20/2025 from 10:19am-10:45am
Psychiatry consult for 302. 39 yo male with history of bipolar disorder presenting on a 302 for expression of suicidal ideation with plan to jump off a bridge or get a rope to hang himself. Patient denies allegations but does admit to history of
mental illness and previous 302 several years ago at [facility] after similar incident. He reports compliance with lithium but that he has not been taking seroquel secondary to side effects. He states lithium level has not been checked in a long
time. He shuts down when I explain that 302 will be upheld but is able to maintain control. Expresses anxiety and agreeable to valium now order as it has helped him in the past. Spoke to his mom who expresses concern for his safety and agrees he
needs treatment. 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
MSE- good eye contact. cooperative. logical and goal-directed. uses humor as coping mechanism. Mood is anxious. denies SI. denies HI/AVH. Limited insight/judgement. fully oriented.
Past psych- Bipolar I disorder and ADHD by history. 302 at [place] years ago after expression of SI with plan to jump off bridge. outpatient therapy and med management at [facility]. prescribed lithium 150mg am 450mg BID, Seroquel 100mg BID (not taking),
gabapentin 300mg BID
Social- Lives with mom. 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 Went to [employer] for Business but was unable to complete degree secondary to onset of mental illness
D&A- mom states patient has problem with alcohol use disorder (last drink yesterday) as well as history of heroin use disorder years ago.
Family history- mom denies diagnosed family members
A/P- 39 yo male with Bipolar I disorder presenting on a 302 for suicidal ideations with plan. Will uphold 302 and recommend inpatient psychiatric hospitalization for safety, stabilization, and medication management. Continue 1:1 for safety. Resume
lithium 150mg AM 450mg BID. Check lithium level in AM. Valium 5mg PO now for anxiety and PRN while here. Crisis to arrange placement. Psychiatry will follow.
--- NOTE | 2025-02-20 11:59 | ED.GENMED ---
History of Present Illness
General
Chief Complaint: Crisis Evaluation
Source: patient
Exam Limitations: none
Time Seen by Provider: 02/20/25 09:11
Nursing documentation reviewed up to this point in time: agreed with
History of Present Illness
History of Present Illness:
Pt with history of bipolar disorder, presents to ED for medical evaluation, after 302 petition was filed mobile crisis unit with concern for suicidal ideation. Pt otherwise has no complaints. Denies recent illness. Pt states that she has been taking
all his prescribed medications, including Eliquis
Past History
Past History
ED Past Medical History: HTN, Psychiatric and Other (Substance abuse)
ED Past Surgical History: None
Social History
Tobacco: Non-smoker
Alcohol: Occasional
Drug: Marijuana, Narcotics, IVDA and Other
Personal: Single
Living: with family
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
Family History
Family History: Other (Noncontributory)
Review of Systems
Review of Systems
Allergies reviewed?: Yes
All Other Systems: ROS reviewed and negative except as documented in HPI and ROS
Constitutional: Reports no symptoms
ABD/GI: Reports no symptoms
Musculoskeletal: Reports no symptoms
Skin: Reports no symptoms
Neurological: Reports no symptoms
Psychiatric: Reports suicidal
Phy Exam
Physical Exam
Physical Exam:
General: well nourished male, in no acute distress. afebrile
Heent: nc/at. eomi
Lungs: cta
Heart: rrr
Abd: soft and nontender
Neuro: aao x 3. no focal neurological deficit.
Psych: pleasant and cooperative
Course
Orders/Labs/Results
Orders:
Orders
02/20/25 09:13
Crisis Consult Urgent
Reason for Consult: 302
02/20/25 10:30
Diazepam [Valium] 5 mg PO NOW STA
02/20/25 10:32
Electrocardiogram (*1) Urgent
Reason for Study: QTc Monitoring
02/20/25 10:33
EKG- Treatment ONCE
02/20/25 10:48
Acetaminophen Urgent
Alcohol Urgent
Complete Blood Count/No Diff Urgent
Comprehensive Metabolic Panel Urgent
Salicylate Urgent
02/20/25 11:36
Diazepam [Valium] 5 mg PO BID PRN
02/20/25 16:00
Gabapentin [Neurontin] 300 mg PO TID
02/20/25 20:00
Omro Carbonate Ext. Release [Eskalith ER (Extended Release)] 450 mg PO BID
02/21/25 08:00
Omro Carbonate [Eskalith] 150 mg PO DAILY
Abnormal Lab Results
02/20/25
10:48
MCH 31.5 H pg
(27.0-31.0)
AST 69 H U/L
(17-59)
ALT 75 H U/L
(0-50)
Total Protein 8.5 H g/dl
(6.3-8.2)
Albumin 5.1 H g/dl
(3.5-5.0)
Salicylates < 1.0 L mg/dl
(2.0-20.0)
Acetaminophen < 10 L ug/ml
(10-30)
02/20/25 10:48
02/20/25 10:48
Vital Signs
Initial and Last Documented VS:
Initial Vital Signs
Temp Pulse Resp BP Pulse Ox
98.9 F 78 18 119/62 97
02/20/25 09:16 02/20/25 09:16 02/20/25 09:16 02/20/25 09:16 02/20/25 09:16
Last Documented Vital Signs
Temp Pulse Resp BP Pulse Ox
98.9 F 78 18 119/62 97
02/20/25 09:16 02/20/25 09:16 02/20/25 09:16 02/20/25 09:16 02/20/25 12:01
MDM/Problems Addressed
MDM/Problems Addressed:
Pt medically cleared and will be transferred to in-patient psychiatric facility for further evaluation and treatment
*Pulse Oximetry
SaO2: 97
Oxygen Mode of Delivery: Room air
Patient hypoxic: no
*Critical Care Note
Total Time (30-74mins, 75-104mins- exclusive of procedures): Not Applicable
ED Attending Note
-
Portions of this chart may have been created with voice recognition software.� Occasional wrong word or��sound alike� substitutions may have occurred due to the inherent limitations of voice recognition software.
Discharge Plan
Departure
Patient Disposition: Psych Facility
Date of Disposition: 02/20/25
Time of Disposition: 12:00
Patient Status:: 302
Discharge Problem:
Suicidal ideation
Prescriptions:
No Action
Eliquis 5 mg Tablet
5 mg PO BID
albuterol sulfate 2.5 mg /3 mL (0.083 %) solution for nebulization
2.5 mg inhalation Q4H PRN (Reason: shortness of breath or wheezing) Qty: 180 0RF
metoprolol succinate 100 mg Tablet Extended Release 24 Hr
100 mg PO BID
Entresto 24-26 mg Tablet
1 tab PO BID 30 Days Qty: 60 0RF
ferrous sulfate [FeroSul] 325 mg (65 mg iron) Tablet
325 mg PO DAILY 30 Days Qty: 30 0RF
folic acid 1 mg Tablet
1 mg PO DAILY 30 Days Qty: 30 0RF
thiamine mononitrate (vit B1) 100 mg Tablet
100 mg PO BID 30 Days Qty: 60 0RF
dapagliflozin propanediol 10 mg Tablet
10 mg PO DAILY 30 Days Qty: 30 0RF
midodrine 5 mg Tablet
5 mg PO TID@0800,1300,1800 30 Days Qty: 90 5RF
spironolactone 25 mg Tablet
12.5 mg PO DAILY 90 Days Qty: 45 3RF
lithium carbonate 450 mg Tablet Extended Release
450 mg PO BID 90 Days Qty: 180 3RF
quetiapine 100 mg tablet
100 mg PO DAILY
gabapentin 300 mg capsule
300 mg PO BID
Referrals:
Laureano Heller DO [Family Provider, Family Practice]
Interventions
Interventions:
*General Assessment Last Done: 02/20/25 09:11
*Neglect/Abuse Screening Last Done: 02/20/25 09:11
*Risk Screen - Suicide (C-SSRS) Last Done: 02/20/25 09:11
*Nursing Disposition Last Done: 02/20/25 15:00
ED-Psychological Assessment Last Done: 02/20/25 09:11
Discharge Date and Time
Discharge Date/Time: 02/20/25 15:14
Print Language: ARABIC
== END 2025-02-20 15:14 ==
LOC: EMR 08:53
PROVIDERS: EMERGENCY PHYSICIAN Emergency Medicine; FAMILY PHYSICIAN Family Medicine
DX: R45.851 Suicidal ideations (principal); F31.9 Bipolar disorder, unspecified; I10 Essential (primary) hypertension; F41.9 Anxiety disorder, unspecified; Z79.899 Other long term (current) drug therapy
CPT/HCPCS: 99285; 80053; 80143; 80179; 82077; 85027; 93005